=== PATIENT | male | born 1935 | race Hispanic/Latino ===

== ENCOUNTER 2017-09-10 13:53 | Inpatient (IN) | payer OTHER ==
[~2017-09-10] VITALS: Ht 170.2 cm; Wt 78.9 kg
[~2017-09-10 13:53] MED LIST: AMOX-CLAV 875-1 EACH PO; ASPIRIN EC81 M1 PO; AZITHROMYCIN600 MG PO; CEFUROXIME500 MG PO; CLOPIDOGREL75 M1 PO; ESCITALOPRAM OX10 MG PO; HYDROCHLOROTH12.5 M3 PO; JANUMET 50-1,01 EACH PO; METOPROLOL SUCC25 M1 PO; PANTOPRAZOLE SO40 M1 PO; PRAVASTATIN SOD10 M2 PO; PREZCOBIX 8001 EACH PO; Rolling walker; SULFAMETHOXAZO1 EAC1 PO; TAMSULOSIN HCL0.4 M1 PO; TIVICAY50 M1 PO; TOUJEO SOL300 UNIT/1 SC; VOLTAREN100 GM TOP; ZOLPIDEM TARTRA10 M1 PO
[2017-09-10 14:39] LABS: ABSOLUTE BASOPHIL COUNT 0 /CUMM (0.0-0.2); ABSOLUTE EOSINOPHIL COUNT 0 /CUMM (0.0-0.7); ABSOLUTE GRANULOCYTE CT 7.6 /CUMM (1.4-6.5); ABSOLUTE LYMPH COUNT 1.2 /CUMM (1.2-3.4); ABSOLUTE MONOCYTE COUNT 1.2 /CUMM (0.10-0.60); BASOPHIL % 0.1 % (0.0-2.0); EOSINOPHIL % 0.3 % (0-5); GRANULOCYTE % 75.5 % (42.2-75.2); HEMATOCRIT 37.6 % (42-52); MEAN CORPUSCULAR HGB 30.3 PG (27.0-31.0); MEAN CORPUSCULAR HGB CONC 33.8 G/DL (33.0-37.0); MEAN CORPUSCULAR VOLUME 89.6 FL (80.0-94.0); MEAN PLATELET VOLUME 8.9 FL (7.4-10.4); PLATELET COUNT 251 /CUMM (130-400); RBC DISTRIBUTION WIDTH 12.9 % (11.5-14.5); WHITE BLOOD CELL COUNT 10.1 /CUMM (4.8-10.8)
--- NOTE | 2017-09-10 15:02 | RADIOLOGY REPORT ---
EXAMINATION: XR PORTABLE CHEST CLINICAL INFORMATION: Altered mental status COMPARISON: 09/02/2017 TECHNIQUE: AP portable upright view of the chest FINDINGS: Lordotic projection. Lungs are clear. No consolidation, pneumothorax, or pleural effusion. Cardiac and mediastinal contours are normal. Pulmonary vasculature is unremarkable. Osseous structures are unremarkable. IMPRESSION: No acute cardiopulmonary findings
--- NOTE | 2017-09-10 16:22 | ED AMS/SEIZURE/WEAK/DIZZY ---
See Addendum History of Present Illness General Chief Complaint: General Adult Stated Complaint: ALTERED MENTAL STATUS Source: patient, family Exam Limitations: no limitations Vital Signs & Intake/Output Vital Signs & Intake/Output Vital Signs Date Time Temp Pulse Resp B/P B/P Pulse O2 O2 Flow FiO2 Mean Ox Delivery Rate 09/11 1100 102.1 85 18 140/80 99 Room Air 09/11 0534 98.2 93 18 127/76 95 Room Air 09/11 0254 61 127/61 09/11 0143 98.1 60 20 117/60 99 Room Air 09/10 2351 98.4 53 16 107/53 97 Room Air 09/10 2256 60 106/59 09/10 2255 96.0 63 20 106/59 97 Room Air 09/10 2126 51 86/52 09/10 2042 63 18 83/51 99 Room Air 09/10 1901 98.3 72 18 82/46 96 Room Air 09/10 1356 100.3 76 18 163/78 96 Room Air ED Intake and Output 09/11 0000 09/10 1200 Intake Total Output Total Balance Patient 167 lb Weight Weight Reported by Patient Measurement Method Allergies Coded Allergies: No Known Allergies (08/26/17) Reconcile Medications Aspirin (Ecotrin*) 81 MG TABLET.DR 1 TAB PO DAILY HEART HEALTH (Reported) Azithromycin 600 MG TABLET 2 TAB PO QSUN ANTIBIOTIC (Reported) Clopidogrel Bisulfate (Clopidogrel) 75 MG TABLET 1 TAB PO DAILY HEART HEALTH (Reported) Darunavir/Cobicistat (Prezcobix 800 MG-150 MG Tablet) 800 MG-150 MG TABLET 1 TAB PO DAILY HIV (Reported) Diclofenac Sodium (Voltaren) 1 % GEL..GRAM. 1 GM TOP 4 TIMES/DAY PRN PAIN ( Reported) apply to affected area(s) Dolutegravir Sodium (Tivicay) 50 MG TABLET 1 TAB PO DAILY HIV (Reported) Escitalopram Oxalate 10 MG TABLET 1 TAB PO DAILY DEPRESSION (Reported) Hydrochlorothiazide 12.5 MG CAPSULE 1 CAP PO DAILY HEART HEALTH (Reported) Insulin Glargine,Hum.rec.anlog (Alexia Mireles) 300 UNIT/ML (1.5 ML) INSULN.PEN 40 INJ SC DAILY DM (Reported) Metoprolol Succinate 25 MG TAB 1 TAB PO DAILY HEART HEALTH (Reported) Pantoprazole Sodium 40 MG TABLET.DR 1 TAB PO DAILY HEART HEALTH (Reported) Pravastatin Sodium 10 MG TABLET 1 TAB PO DAILY HEART HEALTH (Reported) Sitagliptin Phos/Metformin HCl (Janumet 50-1,000 MG Tablet) 50 MG-1,000 MG TABLET 1 TAB PO BID DM (Reported) Sulfamethoxazole/Trimethoprim (Sulfamethoxazole-Tmp Ds Tablet) 800 MG-160 MG TABLET 1 TAB PO Thursday ABT (Reported) Tamsulosin HCl 0.4 MG CAP.ER.24H 1 CAP PO DAILY ENLARGED PROSTATE (Reported) Zolpidem Tartrate 10 MG TABLET 1 TAB PO QPMP SLEEP AIDE (Reported) Triage Note: 82 YO MALE TO TRIAGE WITH DAUGHTER. PER DAUGHTER, PT HAS BEEN CONFUSED AND NOT MAKING SENSE TODAY (ONSET THIS AM) STATES HE WAS RECETNLY SEEN HERE FOR AN INFECTION AND D/C HOME. STATES HE IS NOW HAVING TROUBLE AMBULATING. PT ALERT TO SELF ONLY AT THIS TIME. PT DENIES PAIN. TEMP 100.3. BS 116. EQUAL HAND GRASPS AND SMILE. Triage Nurses Notes Reviewed? yes Onset: Abrupt Duration: day(s):, intermittent Timing: recent history Injury Environment: home No Modifying Factors: none HPI: 82-year-old male comes into the emergency room for altered mental status. Patient was recently admitted at [facility] overnight and diagnosed with UTI. He then was discharged and then sent to [facility] by ambulance. He was septic and had a have a cystoscopy done by Dr. Victoria. She was found to have an enlarged prostate and a urine infection. He was on IV antibiotics. He also had pneumonia. He was discharged. He came back a second time here at [facility]. He was then discharged again after some IV fluids. She reports she's been increasingly weak today and unable to ambulate. No vomiting. More confused compared to his normal baseline. (Michele Levy) Past History Travel History Traveled to [place] past 21 day No Medical History Any Pertinent Medical History? 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 No (Michele Levy) Review of Systems Review of Systems Constitutional: Reports: see HPI. EENTM: Reports: see HPI. Respiratory: Reports: no symptoms. Cardiovascular: Reports: no symptoms. GI: Reports: see HPI. Genitourinary: Reports: no symptoms. Musculoskeletal: Reports: no symptoms. Skin: Reports: no symptoms. Neurological/Psychological: Reports: no symptoms. Hematologic/Endocrine: Reports: no symptoms. Immunologic/Allergic: Reports: no symptoms. All Other Systems: Reviewed and Negative (Michele Levy) Physical Exam Physical Exam General Appearance: well developed/nourished, no apparent distress, alert, awake Head: atraumatic Eyes: Bilateral: normal appearance. Ears, Nose, Throat: normal ENT inspection, hearing grossly normal Neck: normal inspection Respiratory: no respiratory distress Cardiovascular: regular rate/rhythm Back: normal inspection Extremities: normal range of motion Neurologic/Psych: awake, alert, oriented x 3, normal gait Skin: intact, normal color Core Measures ACS in differential dx? Yes CVA/TIA Diagnosis No Sepsis Present: No Sepsis Focused Exam Completed? No (Michele Levy) Progress Differential Diagnosis: arrythmia, alcohol intoxication, anemia, CVA/stroke, dehydration, drug intoxication, encephalitis, electrolyte imbalance, intracranial Hem., labrynthitis, meningitis, multiple sclerosis, postural hypotension, presyncope, post-traumatic vertigo, subarachnoid Hem., UTI/pyelo, vertebrobasilar insuff Plan of Care: Orders Procedure Date/time Status Regular Diet 09/11 B Active PT Evaluate & Treat 09/11 0754 Active CASE MANAGEMENT CONSULT 09/11 0754 Active OXYGEN SETUP (GEN) 09/10 2159 Active Saline Lock 09/[address] in observation 09/10 2159 Active Activity/Ambulation 09/10 2159 Active Code Status 09/10 2159 Active Add-on Test (ER Only) 09/[address] in observation 09/10 1906 Active Patient Data 09/10 190 Active Vital Signs 09/10 1906 Active Code Status 09/10 1906 Complete RAPID VIRAL INFLUENZA A 09/10 1525 Complete Intake & Output 09/10 1439 Active BLOOD CULTURE 09/10 140 Active URINALYSIS 09/10 140 Complete LACTIC ACID 09/10 140 Complete COMPREHENSIVE METABOLIC PANEL 09/10 140 Complete CBC WITHOUT DIFFERENTIAL 09/10 140 Complete EKG 09/10 140 Active Laboratory Tests 09/10/17 1709: Lactic Acid Cancelled 09/10/17 1443: Urine Color YEL, Urine Clarity HAZY H, Urine pH 5.5, Ur Specific [place] >= 1.030, Urine Protein 100 H, Urine Ketones NEG, Urine Nitrite NEG, Urine Bilirubin NEG, Urine Urobilinogen 0.2, Ur Leukocyte Esterase TRACE H, Ur Microscopic SEDIMENT EXAMINED, Urine RBC 50-75 H, Urine WBC 10-15 H, Ur Epithelial Cells FEW, Urine Crystals 3+ UR AC H, Urine Bacteria MOD H, Hyaline Casts RARE H, Urine Hemoglobin LARGE H, Urine Glucose NEG 09/10/17 1420: Anion Gap 13, Estimated GFR 58 L, BUN/Creatinine Ratio 15.0, Glucose 128 H, Lactic Acid 1.4, Calcium 9.4, Total Bilirubin 0.9, AST 17, ALT 25, Alkaline Phosphatase 95, Total Protein 7.3, Albumin 3.8, Globulin 3.5, Albumin/Globulin Ratio 1.1, CBC w Diff NO MAN DIFF REQ, RBC 4.20 L, MCV 89.6, MCH 30.3, RDW 12.9 , MPV 8.9, Gran % 75.5 H, Lymphocytes % 11.9 L, Monocytes % 12.2 H, Eosinophils % 0.3, Basophils % 0.1, Absolute Granulocytes 7.6 H, Absolute Lymphocytes 1.2, Absolute Monocytes 1.2 H, Absolute Eosinophils 0, Absolute Basophils 0, PUBS MCHC 33.8 Microbiology 09/10 2303 NASOPHARYN: Influenza Virus A & B Rapid Smear - COMP 09/10 143 BLOOD: Blood Culture - RES 09/10 142 BLOOD: Blood Culture - RES Diagnostic Imaging: Viewed by Me: Radiology Read. Discussed w/RAD: Radiology Read. Radiology Impression: PATIENT: TRAVIS PRYOR PRESENT AGE: 82 PATIENT ACCOUNT NO: [id number] : 35 LOCATION: [facility] ORDERING PHYSICIAN: Michele CALIX SERVICE DATE: 09/10/17-5980 EXAM TYPE : RAD - XRY-PORTABLE CHEST XRAY EXAMINATION: XR PORTABLE CHEST CLINICAL INFORMATION: Altered mental status COMPARISON: 09/02/2017 TECHNIQUE: AP portable upright view of the chest FINDINGS: Lordotic projection. Lungs are clear. No consolidation, pneumothorax, or pleural effusion. Cardiac and mediastinal contours are normal. Pulmonary vasculature is unremarkable. Osseous structures are unremarkable. IMPRESSION: No acute cardiopulmonary findings DICTATED BY: Zeus Hemphill MD DATE/TIME DICTATED:09/10/171456 OUTSIDE BARREL LATHE OPERATOR:RAJAN DATE/TIME TRANSCRIBED:09/10/171456 CONFIDENTIAL, DO NOT COPY WITHOUT APPROPRIATE AUTHORIZATION. <Electronically signed in Other Vendor System> SIGNED BY: Zeus Hemphill MD 09/10/17 1502 Initial ED EKG: normal sinus rhythm, rate (98), nonspecific ST T wave chg (Ciro CALIX,Michele) Hand-Off Endorsed To: Jensen Lopes MD Endorsed Time: 07 Pending: consult (case mgmt. PT) ([facility] BRAVO,Lior) Comments: 09/11/17 07:00 pt signed out to me by dr capps. 09/11/2017 9:59:34 AM per lab, pt has oligoclonal bands from csf collected on aug 27. 09/11/2017 11:21:02 AM I have reviewed the report of the oligoclonal bands. The significance of this is somewhat unclear at this point. I will discuss this finding with neurology given the patient's presentation consisting of confusion and weakness. 09/11/2017 11:40:27 AM patient's case discussed with Dr. Peterson. She feels that there is no emergency intervention needed based on the nonspecific nature of the oligoclonal bands. In fact the report does list a number of different possible underlying etiologies. Given the fact that the patient is now spiking a fever I feel he will need to be admitted. 09/11/2017 12:21:23 PM I have discussed this patient's case with Dr. Morrison including latest set of vital signs, fever, urinalysis and the call I received from the laboratory. I have also notified him of my discussion with Dr. Peterson. (Marianne BRAVO,Jensen Archuleta) Departure Departure Disposition: STILL A PATIENT Condition: Stable Referrals: Rupert MD,Edgard (PCP/Family) Departure Forms: Customer Survey General Discharge Information (Michele Levy) Departure Clinical Impression Primary Impression: Altered mental status Secondary Impressions: Dehydration, Hypotension, Multifactorial gait disorder, Oligoclonal bands in cerebrospinal fluid, Symptomatic urinary tract infection Admission Note Spoke With: Angela Morrison MD Documentation of Exam: Documentation of any treatments & extenuating circumstances including Concerns Regarding Discharge (functional status, medication knowledge or non-compliance, living conditions, etc.) that warrant an admission rather than observation: Patient is just spiked a fever of 102 here in the emergency department. He has an infected appearing urine and this may in fact be the underlying cause for his fever and clinical presentation. Given his altered mental status and profound generalized weakness I do not feel he is a good candidate for outpatient management and would very likely return in worse clinical condition due to an inability to comply with outpatient treatment. Given this I feel he now requires hospitalization for investigation of the underlying cause and for treatment of his fever along with close clinical monitoring of mental status and vital signs. Given the oligoclonal bands seen on CSF analysis I feel neurology consultation is warranted. Given this patient's history of HIV disease infectious disease consultation should be considered as well. Patient's antiretroviral medications should be reviewed and optimized. Culture results should be followed and treated accordingly. Physical therapy consultation should be considered given the patient's difficulty in ambulating secondary to generalized weakness. I feel he'll require a multiple day hospitalization. (Jensen Lopes MD) Critical Care Note Critical Care Note Critical Care Time: 30-74 min (Marianne BRAVO,Jensen Archuleta) ED Attending Observation Initial Observation Note: I have seen and personally examined TRAVIS PRYOR on 09/10/17 at 1626. I agree with the current emergency department documentation. The disposition (admission or discharge) is uncertain at this time, he needs a period of observation for the following reason(s): The ED Nurse caring for this patient has been personally informed as to what the patient is being observed for. (Michele Levy) Observation Re-Evaluation: I have reevaluated TRAVIS PRYOR on 09/10/17 at 2300. The physical findings that support the continued need to observe this patient include continued hypotension despite 2L NS. Observation status room to go to floor for further medical care. Radha/W hospitalist. Requests wait for 3rd liter response, if BP normalizes patient to remain in ED for PT eval, case management assistance with disposition. ([facility] BRAVO,Lior)
--- NOTE | 2017-09-10 20:10 | CT SCAN REPORT ---
EXAMINATION: CT HEAD WITHOUT CONTRAST CLINICAL INFORMATION: Altered metal status. COMPARISON: Head CT 09/02/2017. TECHNIQUE: Contiguous axial imaging was performed from the skull base to vertex without intravenous administration of contrast. DLP: 615 mGy-cm. FINDINGS: There is no intracranial hemorrhage, large infarction, or mass lesion. There is moderate scattered hypoattenuation in the bilateral cerebral white matter, which is nonspecific but likely reflects small vessel disease. There are chronic appearing lacunar infarcts within the bilateral basal ganglia. There is mild diffuse brain parenchymal volume loss with prominence of ventricles and sulci. The ventricular size is unchanged compared to prior. The paranasal sinuses are clear. The mastoids and middle ear cavities are clear. There are atherosclerotic calcification of the carotid siphons and vertebral arteries. There is air within the right cavernous sinus which is presumably related to venipuncture. IMPRESSION: 1. No acute intracranial abnormality identified. 2. Mild brain parenchymal volume loss and background of moderate small vessel ischemic changes.
--- NOTE | 2017-09-11 14:02 | Admission Certification ---
Admission Certification Certification Statement - As attending physician, I certify that at the time of - admission, based on clinical presentation, severity of - symptoms, need for further diagnostic testing and - therapeutic interventions, and risk of adverse outcomes - without in-hospital treatment, in my clinical assessment, - this patient requires an acute hospital stay for a minimum - of two nights or longer. I have also considered psychsocial - factors such as support system, advanced age, financial - issues, cognitive issues, and failed out-patient treatments, - past re-admission history, safety of patient, and lack of - compliance as applicable. 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
--- NOTE | 2017-09-11 14:33 | History & Physical ---
Del Troncoso MD 09/11/17 1432: General Information and HPI MD Statement: I have seen and personally examined TRAVIS PRYOR and documented this H&P. The patient is a 82 year old M who presented with a patient stated chief complaint of weakness and confusion. Source of Information: patient, family, old records Exam Limitations: confusion History of Present Illness: 82 year old man with past medical history significant for CAD s/p LA and stent, HTN, HLD, DM and BPH, HIV positive noncompliant with antiretroviral therapy and CD4 count of 22 on 08/27/17 (managed by Jeff Mishra at [facility] in [place]), who was recently admitted with fever and altered mental status presents was admitted for fever and sepsis of urological origin after being observed in the ED for weakness and confusion. On the recent admission, there was no leukocytosis, CT and MRI of the head were negative. An LP was performed and negative for infectious causes. The hospitalization was complicated by a traumatic Prabhakar placement requiring urology , prabhakar placement, cystoscopy and irrigation for hematuria. The patient was treated for urinary tract infection and possible pneumonia because of an infiltrate on chest CT. He was scheduled with Dr. Victoria for a TURP on Thursday. His daughter noticed that he was hallucinating and seemed shaky and progressively more weak over the last two days. He is normally very independent in terms of ambulation and his iADLs but has become progressively weaker and had difficulty ambulating with home physical therapy so she brought him in to the ED. His only complaints at the time of evaluation were some nausea, abdominal distention and a couple episodes of nonbloody, largely watery emesis in the day prior to admission. His chest x-ray in the ED was unremarkable and urinalysis had pyuria. He spiked a fever to a max temperature of 102.1 and was started on ceftriaxone. At the time of evaluation he has no specific complaints and is mentating well, responding and interacting appropriately. Of note on his previous admission, the CSF studies were negative for lyme, HSV was pending and lumbar puncture was positive for oligoclonal bands of unclear significance. Also his abdominal CT showed retroperitoneal lymphadenopathy. 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 Exam & Diagnostic Data Last 24 Hrs of Vital Signs/I&O Vital Signs Date Time Temp Pulse Resp B/P B/P Pulse O2 O2 Flow FiO2 Mean Ox Delivery Rate 09/11 2325 102.3 86 20 160/70 96 09/11 232 98.5 09/11 2223 102.3 09/11 2215 102.3 09/11 1739 98.5 60 20 150/60 97 Room Air 09/11 1335 99.9 76 18 112/65 95 Room Air 09/11 1200 100.7 09/11 1100 102.1 85 18 140/80 99 Room Air 09/11 0534 98.2 93 18 127/76 95 Room Air Intake & Output 09/12 0800 09/12 0000 09/11 1600 Intake Total 540 Output Total 950 Balance -410 Intake, IV 300 Intake, Oral 240 Output, Urine 950 Patient 79.379 kg Weight Weight Bed scale Measurement Method Physical Exam General Appearance Alert, Oriented X3, Cooperative, No Acute Distress Skin Temp/Moisture Exam: Warm/Dry Sepsis Skin Exam (color): Normal for Ethnicity Cardiovascular Regular Rate, Normal S1, Normal S2, No Murmurs Lungs Clear to Auscultation, Normal Air Movement Abdomen Normal Bowel Sounds, Soft, No Tenderness, No Masses, +Prabhakar Extremities No Clubbing, No Cyanosis, No Edema, Normal Pulses Sepsis Peripheral Pulse Location: Dorsalis Pedis Sepsis Peripheral Pulse Exam: Normal Sepsis Cap Refill Exam: <2 Sec Last 24 Hrs of Labs/Lam: Microbiology 09/11 2355 BLOOD: Blood Culture - RECD 09/11 2335 BLOOD: Blood Culture - RECD 09/11 1445 URINE ROUT: Urine Culture - COLB Diagnostic Data CXR Results Lordotic projection. Lungs are clear. No consolidation, pneumothorax, or pleural effusion. Cardiac and mediastinal contours are normal. Pulmonary vasculature is unremarkable. Osseous structures are unremarkable. Other Results 1. No acute intracranial abnormality identified. 2. Mild brain parenchymal volume loss and background of moderate small vessel ischemic changes. Assessment/Plan Assessment: 82 year old man with past medical history significant for CAD s/p LA and stent, HTN, HLD, DM and BPH, HIV positive with recent CD4 count of 22 and detectable viral load admitted for fever, catheter associated urinary tract infection, weakness, and confusion. Catheter associated urinary tract infection: Follow up urine and repeat blood cultures Febrile overnight tmax 102.3 Continue ceftriaxone 1gram IV daily Call urology regarding scheduled TURP Leave Prabhakar catheter in place CAD: Continue metoprolol HIV: Continue PCP prophylaxis with Bactrim Continue antiretroviral therapy Continue MAC prophylaxis with azithromycin Consider lymphoma evaluation for retroperitoneal lymphadenopathy BPH: Continue tamsulosin HLD: Continue statin therapy DM: Accuchecks TIDAC Novolog insulin sliding scale Monoclonal CSF bands Consider neurology consult Regular diet DVT ppx-heparin 5000units subcutaneous Q8H Full code As Ranked By This Provider Problem List: 1. Fever 2. Oligoclonal bands in cerebrospinal fluid 3. Symptomatic urinary tract infection 4. Hypotension 5. Weakness 6. Gait instability 7. UTI (urinary tract infection) 8. Confusion Core Measures/Misc (05/31) Acute Coronary Syndrome ACS Diagnosis: No Congestive Heart Failure Congestive Heart Failure Diagnosis No Cerebrovascular Accident CVA/TIA Diagnosis: No VTE (View Protocol) VTE Risk Factors Age>40 No Mechanical VTE Prophylaxis d/t N/A MechProphylax Ordered No VTE Pharm Prophylaxis d/t NA PharmProphylax ordered Sepsis (View protocol) Sepsis Present: Yes Soledad Lovelace MD 09/11/17 1515: Attending MD Review Statement Attending Statement Attending MD Statement: examined this patient, discuss w/resident/PA/INFORMATION ASSURANCE OFFICER, agreed w/resident/PA/INFORMATION ASSURANCE OFFICER, reviewed EMR data (avail), reviewed images Attending Assessment/Plan: 82-year-old male medical medical problems was here from August 26 to August 31 and discharged on August 31. He has a history of HIV and recently started on antiretrovirals with his most recent CD4 count being 22. On his last admission he was here with fever presumed sepsis of urological origin and obstructive uropathy. Because of confusion he also had a tap (LP) on 12/14 at that point which revealed 2 white cells and all infectious/encephalitic workup was negative. He was treated initially with IV antibiotics for presumed sepsis of urological and because of a traumatic Prabhakar catheterization he had a Prabhakar placed in the OR by Dr. Victoria on August 27. He returned to the ER on 09/02 with weakness and difficulty ambulation was discharged and now came back to the ER initially last night and was placed in ED observation for the thought of physical therapy and observation however he spiked to 102 and is now admitted. Right now are only presumed source is the urine and the question of a catheter associated UTI. We will treat him with IV ceftriaxone for now and follow up on all cultures. We'll call a formal ID consult in a.m. Continue his antiretrovirals, his antidiabetic meds with the exception of his oral hypoglycemics. We'll give him one bag of IV fluids and hold his hydrochlorothiazide for now. Will give him DVT prophylaxis and follow closely. Off note family history is non contributory Lisset Pickering 09/11/170: General Information and HPI Allergies/Medications Home Med list Ammonium Lactate 12 % LOTION 1 DILLAN TOP BID SKIN (Reported) Aspirin (Ecotrin*) 81 MG TABLET.DR 1 TAB PO DAILY HEART HEALTH (Reported) Azithromycin 600 MG TABLET 2 TAB PO QSUN ANTIBIOTIC (Reported) Clopidogrel Bisulfate (Clopidogrel) 75 MG TABLET 1 TAB PO DAILY HEART HEALTH (Reported) Darunavir/Cobicistat (Prezcobix 800 MG-150 MG Tablet) 800 MG-150 MG TABLET 1 TAB PO DAILY HIV (Reported) Desonide (Desowen) 0.05 % CREAM..G. 1 DILLAN TOP BID SKIN (Reported) apply to affected area(s) Diclofenac Sodium (Voltaren) 1 % GEL..GRAM. 1 DILLAN TOP BID PRN PAIN (Reported) apply to affected area(s) Dolutegravir Sodium (Tivicay) 50 MG TABLET 1 TAB PO DAILY HIV (Reported) Escitalopram Oxalate 10 MG TABLET 1 TAB PO DAILY DEPRESSION (Reported) Hydrochlorothiazide 12.5 MG CAPSULE 1 CAP PO DAILY HEART HEALTH (Reported) Insulin Glargine,Hum.rec.anlog (Toujeo Solostar) 300 UNIT/ML (1.5 ML) INSULN.PEN 40 UNIT SC DAILY DM (Reported) Metoprolol Succinate 25 MG TAB 1 TAB PO DAILY HEART HEALTH (Reported) Nut.tx.gluc.intoler,Lac-Fr,Soy (Glucerna) (Unknown Strength) LIQUID (Unknown Dose) PO BID NUTRITIONAL SUPPLEMENT (Reported) Pantoprazole Sodium 40 MG TABLET.DR 1 TAB PO DAILY HEART HEALTH (Reported) Pentoxifylline 400 MG TABLET.ER 1 TAB PO DAILY UNKNOWN (Reported) Pravastatin Sodium 10 MG TABLET 1 TAB PO DAILY HEART HEALTH (Reported) Sitagliptin Phos/Metformin HCl (Janumet 50-1,000 MG Tablet) 50 MG-1,000 MG TABLET 1 TAB PO BID DM (Reported) Sulfamethoxazole/Trimethoprim (Sulfamethoxazole-Tmp Ds Tablet) 800 MG-160 MG TABLET 1 TAB PO Thursday ABT (Reported) Tamsulosin HCl 0.4 MG CAP.ER.24H 1 CAP PO DAILY ENLARGED PROSTATE (Reported) Valacyclovir HCl (Valacyclovir) 1,000 MG TABLET 1 TAB PO DAILY ANTIVIRAL ( Reported) Zolpidem Tartrate 10 MG TABLET 1 TAB PO QPMP SLEEP AIDE (Reported) Resident Review Statement Resident Statement: examined this patient, discussed with senior insight manager international, agreed with senior insight manager international, discussed with family, reviewed EMR data (avail), reviewed images Other Findings: is an 82 year PMHx. of CAD s/p LA and stent, HTN, HLD, DM and BPH, HIV on antiretroviral therapy with a recent CD4 count of 22 (managed by Jeff Mishra at [facility] in [place])recently discharged from after been treated for sepsis of urological origin presented to ED with a c/o AMS. Patient's daughter was at bedside during the encounter, she noticed that her father is hallucinating yesterday, he also has decrease oral intake, at ED he spiked fever up to 102 and was hypotensive. daughter report history of diarrhea managed with Imodium, currently no loose bowel movement, no abdominal pain. He denies any chest pain, SOB, dizziness, chills, cough. Offnote: Patient's on PLAVIX AND ASA wich is currently on hold for lazer TURP on next thursday. Will admitt the patient for general medicine floor, will resume his medication including antiretroviral, will hold Imodium, if he developed diarrhea please send C.diff. UA is hazy with trace esterase he was given Ceftriaxone at ED, will continue cefriaxone for possible UTI, his LP from last admission showed monoclonal band, as this finding is non-specific will evaluate him at am, will consider neurology consult, will start him on novolog sliding scale, accucheck, will send urine culture. ID consult. I'll but him on SC heparin for DVT ppx, as his creatinine in upper normal 1.2 Full code
[2017-09-11] MEDS ORDERED: PENTOXIFYLLINE400 M1 PO (16:22)
[2017-09-11] MEDS ORDERED: AMMONIUM LACTA226 GM TOP (16:24)
[2017-09-11] MEDS ORDERED: VALACYCLOVIR1000 MG PO (16:28)
[2017-09-11] MEDS ORDERED: DESOWEN60 GM TOP (16:38)
[2017-09-11] MEDS ORDERED: GLUCERNA237 ML PO (16:39)
--- NOTE | 2017-09-11 17:02 | Cons- Infect Disease ---
General Information and HPI Consulting Request Date of Consult: 09/11/17 Requested By: Soledad Lovelace MD Reason for Consult: Fever Source of Information: patient, family, old records History of Present Illness: This is an 82-year-old man, HIV positive for 15 years, noncompliant with antiretroviral therapy until recently, with a recent CD4 count of 22, with a history of coronary artery disease, status post NC and stent, hypertension, hyperlipidemia, diabetes and BPH, hospitalized 2 weeks prior to admission with confusion, fatigue and shaking chills, found to be febrile with a normal white blood cell count, negative CT of the head, negative MRI of the head and negative LP, with a traumatic Eduardo catheterization resulting in hematuria, for which he underwent a cystoscopy, with clot evacuation, and with a CT of the abdomen and pelvis revealing prominent prostatomegaly and retrotoperineal lymphadenopathy, treated for a possible urinary tract infection versus pneumonia with a 6 day course of antibiotics, with all of his cultures negative, discharged with a Eduardo catheter, with plans for a laser TURP next week, admitted on September 10 after he was brought to the emergency room with confusion, weakness and decreased oral intake. On admission he was febrile to 100.3. Laboratory data revealed a white blood cell count of 10,000, BUN/creatinine 18 and 1.2, with normal liver enzymes. Urinalysis 50-75 RBCs/10-15 WBCs. Chest x-ray was negative. CT of the head was negative for any acute process. He was begun on Ceftriaxone, but, unfortunately, no urine culture was sent. He spiked to 102.1 this morning. At present he offers no complaints and specifically denies any respiratory or GI symptoms. Allergies/Medications Allergies: Coded Allergies: No Known Allergies (08/26/17) Home Med List: Ammonium Lactate 12 % LOTION 1 DILLAN TOP BID SKIN (Reported) Aspirin (Ecotrin*) 81 MG TABLET.DR 1 TAB PO DAILY HEART HEALTH (Reported) Azithromycin 600 MG TABLET 2 TAB PO QSUN ANTIBIOTIC (Reported) Clopidogrel Bisulfate (Clopidogrel) 75 MG TABLET 1 TAB PO DAILY HEART HEALTH (Reported) Darunavir/Cobicistat (Prezcobix 800 MG-150 MG Tablet) 800 MG-150 MG TABLET 1 TAB PO DAILY HIV (Reported) Diclofenac Sodium (Voltaren) 1 % GEL..GRAM. 1 DILLAN TOP BID PRN PAIN (Reported) apply to affected area(s) Dolutegravir Sodium (Tivicay) 50 MG TABLET 1 TAB PO DAILY HIV (Reported) Escitalopram Oxalate 10 MG TABLET 1 TAB PO DAILY DEPRESSION (Reported) Hydrochlorothiazide 12.5 MG CAPSULE 1 CAP PO DAILY HEART HEALTH (Reported) Insulin Glargine,Hum.rec.anlog (Alexia Riveraar) 300 UNIT/ML (1.5 ML) INSULN.PEN 40 UNIT SC DAILY DM (Reported) Metoprolol Succinate 25 MG TAB 1 TAB PO DAILY HEART HEALTH (Reported) Pantoprazole Sodium 40 MG TABLET.DR 1 TAB PO DAILY HEART HEALTH (Reported) Pentoxifylline 400 MG TABLET.ER 1 TAB PO DAILY UNKNOWN (Reported) Pravastatin Sodium 10 MG TABLET 1 TAB PO DAILY HEART HEALTH (Reported) Sitagliptin Phos/Metformin HCl (Janumet 50-1,000 MG Tablet) 50 MG-1,000 MG TABLET 1 TAB PO BID DM (Reported) Sulfamethoxazole/Trimethoprim (Sulfamethoxazole-Tmp Ds Tablet) 800 MG-160 MG TABLET 1 TAB PO Thursday ABT (Reported) Tamsulosin HCl 0.4 MG CAP.ER.24H 1 CAP PO DAILY ENLARGED PROSTATE (Reported) Valacyclovir HCl (Valacyclovir) 1,000 MG TABLET 1 TAB PO DAILY ANTIVIRAL ( Reported) Zolpidem Tartrate 10 MG TABLET 1 TAB PO QPMP SLEEP AIDE (Reported) Past History Travel History Traveled to [place] past 21 day No Medical History Neurological: NONE EENT: glaucoma Cardiovascular: CAD (s/p stent), hypertension, myocardial infarction Respiratory: NONE Gastrointestinal: GERD Hepatic: NONE Renal: benign prost hyperplasia Musculoskeletal: NONE Psychiatric: depression Endocrine: diabetes Blood Disorders: HIV Cancer(s): NONE REHAB LIAISON/Reproductive: HIV History of MRSA: No History of VRE: No History of CDIFF: No Surgical History Surgical History: non-contributory Psychosocial History Services at Home: Home Health Aide Smoking Status: Never Smoked Review of Systems Review of Systems All Other Systems: Reviewed and Negative Exam & Diagnostic Data Last 24 Hrs of Vital Signs/I&O Vital Signs Date Time Temp Pulse Resp B/P B/P Pulse O2 O2 Flow FiO2 Mean Ox Delivery Rate 09/11 1335 99.9 76 18 112/65 95 Room Air 09/11 1200 100.7 09/11 1100 102.1 85 18 140/80 99 Room Air 09/11 0534 98.2 93 18 127/76 95 Room Air 09/11 0254 61 127/61 09/11 0143 98.1 60 20 117/60 99 Room Air 09/10 2351 98.4 53 16 107/53 97 Room Air 09/10 2256 60 106/59 09/10 2255 96.0 63 20 106/59 97 Room Air 09/10 2126 51 86/52 09/10 2042 63 18 83/51 99 Room Air 09/10 1901 98.3 72 18 82/46 96 Room Air Intake & Output 09/11 1600 09/11 0800 09/11 0000 Intake Total Output Total 1400 Balance -1400 Number 1 Bowel Movements Output, Urine 1400 Patient 167 lb Weight Physical Exam Other Physical Findings: MAXIMUM TEMPERATURE 102.1. He is awake and alert in no acute distress. Skin reveals no rash. HEENT poor dentition. Neck is supple with no adenopathy. Lungs are clear. Heart regular rhythm with no murmur. Abdomen is soft, nontender with positive bowel sounds. Back no CVA tenderness. Extremities no cyanosis, clubbing or edema; no significant adenopathy. Neuro is without focality. Eduardo catheter is in place. Last 24 Hours of Lab Results: Laboratory Tests 09/10 09/10 1709 1443 Chemistry Lactic Acid Cancelled Urines Urine Color (YEL,AMB,STR) YEL Urine Clarity (CLEAR) HAZY H Urine pH (5.0 - 8.0) 5.5 Ur Specific [place] (1.001 - 1.035) >= 1.030 Urine Protein (NEG,<30 MG/DL) 100 H Urine Ketones (NEG) NEG Urine Nitrite (NEG) NEG Urine Bilirubin (NEG) NEG Urine Urobilinogen (0.1 - 1.0 EU/dl) 0.2 Ur Leukocyte Esterase (NEG) TRACE H Ur Microscopic SEDIMENT EXAMINED Urine RBC (0 - 5 /HPF) 50-75 H Urine WBC (0 - 2 /HPF) 10-15 H Ur Epithelial Cells (NONE,FEW) FEW Urine Crystals 3+ UR AC H Urine Bacteria (NEG/NONE) MOD H Hyaline Casts (0/LPF) RARE H Urine Hemoglobin (NEG) LARGE H Urine Glucose (N MG/DL) NEG 09/10 1420 Chemistry Sodium (137 - 145 mmol/L) 134 L Potassium (3.5 - 5.1 mmol/L) 4.8 Chloride (98 - 107 mmol/L) 98 Carbon Dioxide (22 - 30 mmol/L) 23 Anion Gap (5 - 16) 13 BUN (9 - 20 mg/dL) 18 Creatinine (0.7 - 1.2 mg/dL) 1.2 Estimated GFR (>60 ml/min) 58 L BUN/Creatinine Ratio (7 - 25 %) 15.0 Glucose (65 - 99 mg/dL) 128 H Lactic Acid (0.7 - 2.1 mmol/L) 1.4 Calcium (8.4 - 10.2 mg/dL) 9.4 Total Bilirubin (0.2 - 1.3 mg/dL) 0.9 AST (17 - 59 U/L) 17 ALT (21 - 72 U/L) 25 Alkaline Phosphatase (< 127 U/L) 95 Total Protein (6.3 - 8.2 g/dL) 7.3 Albumin (3.5 - 5.0 g/dL) 3.8 Globulin (1.9 - 4.2 gm/dL) 3.5 Albumin/Globulin Ratio (1.1 - 2.2 %) 1.1 Hematology CBC w Diff NO MAN DIFF REQ WBC (4.8 - 10.8 /CUMM) 10.1 RBC (4.70 - 6.10 /CUMM) 4.20 L Hgb (14.0 - 18.0 G/DL) 12.7 L Hct (42 - 52 %) 37.6 L MCV (80.0 - 94.0 FL) 89.6 MCH (27.0 - 31.0 PG) 30.3 RDW (11.5 - 14.5 %) 12.9 Plt Count (130 - 400 /CUMM) 251 MPV (7.4 - 10.4 FL) 8.9 Gran % (42.2 - 75.2 %) 75.5 H Lymphocytes % (20.5 - 51.1 %) 11.9 L Monocytes % (1.7 - 9.3 %) 12.2 H Eosinophils % (0 - 5 %) 0.3 Basophils % (0.0 - 2.0 %) 0.1 Absolute Granulocytes (1.4 - 6.5 /CUMM) 7.6 H Absolute Lymphocytes (1.2 - 3.4 /CUMM) 1.2 Absolute Monocytes (0.10 - 0.60 /CUMM) 1.2 H Absolute Eosinophils (0.0 - 0.7 /CUMM) 0 Absolute Basophils (0.0 - 0.2 /CUMM) 0 PUBS MCHC (33.0 - 37.0 G/DL) 33.8 Last 24 Hours of Lam Results: Blood cultures 2 September 10 negative Rapid flu swab September 10 negative Diagnostic Data Recent Imaging Findings: Chest x-ray September [address] of the head September 02 no acute process Assessment/Plan Assessment/Plan Impression: This is an 82-year-old man, HIV positive for 15 years, noncompliant with antiretroviral therapy until recently, with a recent CD4 count of 22, with a history of coronary artery disease, status post NC and stent, hypertension, hyperlipidemia, diabetes and BPH, hospitalized 2 weeks prior to admission with a fever and confusion, with no focus of infection identified, discharged after 6 days of antibiotics with a Eduardo catheter admitted on September 10 with confusion and weakness, with the development of a fever with no obvious focus of infection. 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 His CT of the abdomen did reveal retroperitoneal lymphadenopathy, which might raise concern for lymphoma, which could explain his fever. Of note his recent CSF did reveal 2 oligoclonal bands, which might suggest an underlying neurologic disorder and further evaluation for this would be warranted. With the indwelling Eduardo catheter a urinary tract infection is possible, and he can be covered for this pending cultures, though, unfortunately, no urine culture has been sent and any cultures sent at this point may well be affected by his recent antibiotics. Suggestion: 1. Neurology evaluation regarding his positive oligoclonal bands 2. Send a urine culture now 3. Consider pursuing the diagnosis of lymphoma based on his retroperitoneal lymphadenopathy 4. Continue Ceftriaxone pending above 5. Can resume his antiretroviral therapy and Bactrim prophylaxis Luz Marina Brown MD will be covering until September 15 Consult Acknowledgment - Thank you for your consult request.
[2017-09-11 17:39] VITALS: BP 150/60
[2017-09-11 23:25] VITALS: BP 160/70
--- NOTE | 2017-09-12 05:39 | PN- Housestaff ---
See Addendum Subjective Follow-up For: fever AIDS catheter associated UTI Subjective: patient was febrile overnight to 102.3 with nausea and vomiting during the same time that improved, patient denied any cough headache abdominal pain or other focal symptoms repeat blood cultures were performed and tylenol was administered Review of Systems Constitutional: Reports: see HPI. Objective Last 24 Hrs of Vital Signs/I&O Vital Signs Date Time Temp Pulse Resp B/P B/P Pulse O2 O2 Flow FiO2 Mean Ox Delivery Rate 09/12 0644 98.1 62 18 128/70 96 Room Air 09/11 2325 102.3 86 20 160/70 96 09/11 2322 98.5 09/11 2223 102.3 09/11 2215 102.3 09/11 1739 98.5 60 20 150/60 97 Room Air 09/11 1335 99.9 76 18 112/65 95 Room Air 09/11 1200 100.7 09/11 1100 102.1 85 18 140/80 99 Room Air Intake & Output 09/12 0800 09/12 0000 09/11 1600 Intake Total 240 540 Output Total 400 950 Balance -160 -410 Intake, IV 300 Intake, Oral 240 240 Output, Urine 400 950 Patient 79.379 kg Weight Weight Bed scale Measurement Method Physical Exam General Appearance: Alert, Oriented X3, Cooperative, No Acute Distress Neck: Supple, No JVD Cardiovascular: Regular Rate, Normal S1, Normal S2, No Murmurs Lungs: Clear to Auscultation, Normal Air Movement Abdomen: Normal Bowel Sounds, Soft, No Tenderness, No Masses, +prabhakar Extremities: No Clubbing, No Cyanosis, No Edema, Normal Pulses Current Medications: Current Medications Sig/Juma Start time Last Medication Dose Route Stop Time Status Admin Acetaminophen 650 MG Q6P PRN 09/11 2200 AC 09/11 PO 221 Acetaminophen 1,000 MG Q6P PRN 09/110 AC 09/11 IV 2223 Acetaminophen 975 MG ONCE ONE 09/11 1145 DC 09/11 PO 09/11 1146 1149 Acetaminophen 0 .STK-MED ONE 09/11 1142 DC PO Azithromycin 1,200 MG QSUN 09/13 0700 AC PO Ceftriaxone Sodium 1,000 MG DAILY 09/12 1000 AC IV Ceftriaxone Sodium 1,000 MG ONCE ONE 09/11 1145 DC 09/11 IV 09/11 1146 1204 Ceftriaxone Sodium 0 .STK-MED ONE 09/11 1142 DC .ROUTE Diclofenac Sodium 1 DILLAN BID PRN 09/11 1730 AC TOP Escitalopram Oxalate 10 MG DAILY 09/12 1000 AC PO Heparin Sodium 5,000 UNIT Q8 09/12 0600 AC 09/12 (Porcine) SC 0512 Heparin Sodium 5,000 UNIT Q8 09/11 1400 CAN (Porcine) SC Hydrocortisone 1 DILLAN DAILY 09/12 1000 AC TOP Hydromorphone HCl 0.5 MG Q8P PRN 09/11 2200 AC IV Insulin Aspart 0 TIDAC 09/12 0800 AC SC Metoprolol Succinate 25 MG DAILY 09/12 1000 AC PO Metoprolol Tartrate 25 MG DAILY 09/12 1000 CAN PO Pravastatin Sodium 10 MG DAILY 09/12 1000 AC PO Sodium Chloride 1,000 ML Q13H 09/11 1445 AC 09/11 IV 1859 Sodium Chloride 1,000 ML ONCE ONE 09/10 1915 DC 09/10 IV 09/11 0834 1930 Tamsulosin HCl 0.4 MG DAILY 09/12 1000 AC PO Trimethoprim/ 1 TAB 09/14 1000 AC Sulfamethoxazole PO Valacyclovir HCl 1,000 MG DAILY 09/12 1000 CAN PO Zolpidem Tartrate 10 MG AT BEDTIME PRN 09/11 2200 AC PO Last 24 Hrs of Lab/Lam Results Last 24 Hrs of Labs/Mics: Microbiology 09/11 2355 BLOOD: Blood Culture - RECD 09/11 2335 BLOOD: Blood Culture - RECD 09/11 1445 URINE ROUT: Urine Culture - COLB Assessment/Plan Assessment: 82 year old man with past medical history significant for CAD s/p [place] and stent, HTN, HLD, DM and BPH, HIV positive with recent CD4 count of 22 and detectable viral load admitted for fever, catheter associated urinary tract infection, weakness, and confusion. Catheter associated urinary tract infection: Follow up urine and repeat blood cultures Febrile overnight tmax 102.3 Continue ceftriaxone 1gram IV daily Call urology regarding scheduled TURP Leave Prabhakar catheter in place CAD: Continue metoprolol HIV: Continue PCP prophylaxis with Bactrim Continue antiretroviral therapy Continue MAC prophylaxis with azithromycin Consider lymphoma evaluation for retroperitoneal lymphadenopathy on prior CT BPH: Continue tamsulosin HLD: Continue statin therapy DM: Accuchecks TIDAC Novolog insulin sliding scale Monoclonal CSF bands Consider neurology consult Regular diet DVT ppx-heparin 5000units subcutaneous Q8H Full code Problem List: 1. Confusion 2. UTI (urinary tract infection) 3. Fever 4. Weakness 5. Gait instability 6. Oligoclonal bands in cerebrospinal fluid Pain Ratin Pain Location: n/a Pain Goal: Pain 4 or less Pain Plan: prn Tomorrow's Labs & Rationales: cbc, bep
[2017-09-12 06:44] VITALS: BP 128/70
[2017-09-12 09:08] LABS: ABSOLUTE BASOPHIL COUNT 0 /CUMM (0.0-0.2); ABSOLUTE EOSINOPHIL COUNT 0 /CUMM (0.0-0.7); ABSOLUTE GRANULOCYTE CT 4.9 /CUMM (1.4-6.5); ABSOLUTE MONOCYTE COUNT 1.1 /CUMM (0.10-0.60); BASOPHIL % 0.2 % (0.0-2.0); EOSINOPHIL % 0.4 % (0-5); GRANULOCYTE % 69.6 % (42.2-75.2); HEMATOCRIT 34.8 % (42-52); MEAN CORPUSCULAR HGB 30.3 PG (27.0-31.0); MEAN CORPUSCULAR HGB CONC 33.4 G/DL (33.0-37.0); MEAN CORPUSCULAR VOLUME 90.6 FL (80.0-94.0); MEAN PLATELET VOLUME 9.3 FL (7.4-10.4); PLATELET COUNT 175 /CUMM (130-400); RBC DISTRIBUTION WIDTH 12.9 % (11.5-14.5); RED BLOOD CELL CT 3.85 /CUMM (4.70-6.10)
--- NOTE | 2017-09-12 13:30 | PN- Infect Dx ---
Subjective Subjective: Chills. Febrile past 24 h. No productive cough. Review of Systems Comments: 12 points reviewed as noted, otherwise negative. Objective Last 24 Hrs of Vital Signs/I&O Vital Signs Date Time Temp Pulse Resp B/P B/P Pulse O2 O2 Flow FiO2 Mean Ox Delivery Rate 09/12 0942 84 154/84 09/12 0942 84 152/84 09/12 0644 98.1 62 18 128/70 96 Room Air 09/11 2325 102.3 86 20 160/70 96 09/11 2322 98.5 09/11 2223 102.3 09/11 2215 102.3 09/11 1739 98.5 60 20 150/60 97 Room Air 09/11 1335 99.9 76 18 112/65 95 Room Air Intake & Output 09/12 1600 09/12 0800 09/12 0000 Intake Total 240 540 Output Total 400 950 Balance -160 -410 Intake, IV 300 Intake, Oral 240 240 Output, Urine 400 950 Patient 175 lb Weight Weight Bed scale Measurement Method Physical Exam Other Physical Findings: He is awake and alert in no acute distress. Skin reveals no rash. HEENT poor dentition. Neck is supple with no adenopathy. Lungs are clear. Heart regular rhythm with no murmur. Abdomen is soft, nontender with positive bowel sounds. Back no CVA tenderness. Extremities no cyanosis, clubbing or edema; no significant adenopathy. Neuro is without focality. Eduardo catheter is in place. Results Last 24 Hours of Lab Results: Laboratory Tests 09/12 0811 Chemistry Sodium (137 - 145 mmol/L) 138 Potassium (3.5 - 5.1 mmol/L) 4.4 Chloride (98 - 107 mmol/L) 103 Carbon Dioxide (22 - 30 mmol/L) 23 Anion Gap (5 - 16) 11 BUN (9 - 20 mg/dL) 13 Creatinine (0.7 - 1.2 mg/dL) 1.0 Estimated GFR (>60 ml/min) > 60 BUN/Creatinine Ratio (7 - 25 %) 13.0 Hematology CBC w Diff NO MAN DIFF REQ WBC (4.8 - 10.8 /CUMM) 7.0 RBC (4.70 - 6.10 /CUMM) 3.85 L Hgb (14.0 - 18.0 G/DL) 11.6 L Hct (42 - 52 %) 34.8 L MCV (80.0 - 94.0 FL) 90.6 MCH (27.0 - 31.0 PG) 30.3 RDW (11.5 - 14.5 %) 12.9 Plt Count (130 - 400 /CUMM) 175 MPV (7.4 - 10.4 FL) 9.3 Gran % (42.2 - 75.2 %) 69.6 Lymphocytes % (20.5 - 51.1 %) 13.6 L Monocytes % (1.7 - 9.3 %) 16.2 H Eosinophils % (0 - 5 %) 0.4 Basophils % (0.0 - 2.0 %) 0.2 Absolute Granulocytes (1.4 - 6.5 /CUMM) 4.9 Absolute Lymphocytes (1.2 - 3.4 /CUMM) 1.0 L Absolute Monocytes (0.10 - 0.60 /CUMM) 1.1 H Absolute Eosinophils (0.0 - 0.7 /CUMM) 0 Absolute Basophils (0.0 - 0.2 /CUMM) 0 PUBS MCHC (33.0 - 37.0 G/DL) 33.4 Last 24 Hours of Lam Results: No UC available. SPEC #: [id number] KEENAN: 09/11/17 STATUS: RES RECD: 09/11/[address]: Del Troncoso MD SOURCE: BLOOD ENTR: 09/11/17 [facility] DR: [place] BRAVO,Soledad Haley SPDESC: 2ND/VENOUS Jeff Emery MD ORDERED: BLOOD CULTURE Procedure Result > BLOOD CULTURE REPORT Preliminary 09/12/171232 No growth after 1 day incubation. Specimen is examined continuously for 5 days before final report unless culture becomes positive. Recent Imaging Studies: SERVICE DATE: 09/10/17 EXAM TYPE: RAD - XRY-PORTABLE CHEST XRAY EXAMINATION: XR PORTABLE CHEST CLINICAL INFORMATION: Altered mental status COMPARISON: 09/02/2017 TECHNIQUE: AP portable upright view of the chest FINDINGS: Lordotic projection. Lungs are clear. No consolidation, pneumothorax, or pleural effusion. Cardiac and mediastinal contours are normal. Pulmonary vasculature is unremarkable. Osseous structures are unremarkable. IMPRESSION: No acute cardiopulmonary findings DICTATED BY: Zeus Hemphill MD DATE/TIME DICTATED:09/10/171456 REVENUE FIELD AGENT:RAJAN DATE/TIME TRANSCRIBED:09/10/171456 CONFIDENTIAL, DO NOT COPY WITHOUT APPROPRIATE AUTHORIZATION. Assessment/Plan Impression: 82-year-old man, HIV positive for 15 years, noncompliant with antiretroviral therapy until recently, with a recent CD4 count of 22, with a history of coronary artery disease, status post [place] and stent, hypertension, hyperlipidemia, diabetes and BPH, hospitalized 2 weeks prior to admission with a fever and confusion, with no focus of infection identified, discharged after 6 days of antibiotics with a Eduardo catheter admitted on September 10 with confusion and weakness, with the development of a fever with no obvious focus of infection. CT of the abdomen did reveal retroperitoneal lymphadenopathy, which might raise concern for lymphoma, which could explain his fever. With the indwelling Eduardo catheter a urinary tract infection is possible, and he can be covered for this pending cultures, though, unfortunately, no urine culture has been sent and any cultures sent at this point may well be affected by his recent antibiotics. PCP and MARCUS prophylaxis Suggestion: 1. Neurology evaluation regarding his positive oligoclonal bands in CSF 2. Repeat BC x 2 if spiking fever, also obtain UA/UC. 3. Consider pursuing the diagnosis of lymphoma based on his retroperitoneal lymphadenopathy 4. Continue Ceftriaxone pending above
[2017-09-12 15:21] VITALS: BP 122/62
[2017-09-12 22:29] VITALS: BP 128/60
[2017-09-13 06:29] VITALS: BP 132/80
[2017-09-13 09:14] LABS: ABSOLUTE BASOPHIL COUNT 0 /CUMM (0.0-0.2); ABSOLUTE EOSINOPHIL COUNT 0 /CUMM (0.0-0.7); ABSOLUTE GRANULOCYTE CT 3.1 /CUMM (1.4-6.5); BASOPHIL % 0.3 % (0.0-2.0); EOSINOPHIL % 0.1 % (0-5); GRANULOCYTE % 60.4 % (42.2-75.2); HEMATOCRIT 31.9 % (42-52); MEAN CORPUSCULAR HGB 30.3 PG (27.0-31.0); MEAN CORPUSCULAR HGB CONC 33.2 G/DL (33.0-37.0); MEAN CORPUSCULAR VOLUME 91.1 FL (80.0-94.0); MEAN PLATELET VOLUME 9.2 FL (7.4-10.4); PLATELET COUNT 149 /CUMM (130-400); WHITE BLOOD CELL COUNT 5.2 /CUMM (4.8-10.8)
--- NOTE | 2017-09-13 09:18 | PN- Housestaff ---
LadanLois 09/13/17 0918: Subjective Follow-up For: fever AIDS catheter associated UTI Complaints: ABDOMINAL PAIN, NAUSEA Subjective: Patient seen and examined, he is lying in the bed with mild distress, he reports that he has some nausea, with abdominal pain mainly in the epigastric region, he feels bloaded, he also reports some distention. Review of Systems Constitutional: Reports: fever (yesterday). EENTM: Reports: no symptoms. Cardiovascular: Reports: no symptoms. Respiratory: Reports: no symptoms. Gastrointestinal: Reports: see HPI, abdominal pain, nausea. Genitourinary: Reports: no symptoms. Musculoskeletal: Reports: no symptoms. Skin: Reports: no symptoms. Neurological/Psychological: Reports: see HPI. Objective Last 24 Hrs of Vital Signs/I&O Vital Signs Date Time Temp Pulse Resp B/P B/P Pulse O2 O2 Flow FiO2 Mean Ox Delivery Rate 09/13 0629 98.5 68 16 132/80 96 Room Air 09/12 2229 97.9 68 19 128/60 97 Room Air 09/12 1521 100.7 09/12 1521 100.7 81 18 122/62 94 09/12 1419 100.7 Intake & Output 09/13 1600 09/13 0800 09/13 0000 Intake Total 240 600 Output Total 450 600 Balance -210 0 Intake, IV 600 Intake, Oral 240 Number 3 1 Bowel Movements Output, Urine 450 600 Physical Exam General Appearance: Alert, Cooperative, Mild Distress Skin: No Rashes, No Breakdown HEENT: Atraumatic, PERRLA, EOMI, Mucous Membr. moist/pink Neck: Supple, No JVD Cardiovascular: Regular Rate, Normal S1, Normal S2 Lungs: Clear to Auscultation, Normal Air Movement Abdomen: Normal Bowel Sounds, Soft, DISTENDED, NO TENDERNESS Neurological: Normal Gait, Normal Speech, Strength at 5/5 X4 Ext, Normal Tone, Sensation Intact, Cranial Nerves 3-12 NL Extremities: No Edema, Normal Pulses Vascular: Normal Pulses, Pulses Symmetrical Current Medications: Current Medications Sig/Juma Start time Last Medication Dose Route Stop Time Status Admin Acetaminophen 1,000 MG .STK-MED ONE 09/12 1417 DC IV 09/12 1418 Acetaminophen 650 MG Q6P PRN 09/11 2200 AC 09/11 PO 2215 Acetaminophen 1,000 MG Q6P PRN 09/11 2200 AC 09/12 IV 1419 Azithromycin 1,200 MG QSUN 09/13 0700 AC 09/13 PO 0514 Ceftriaxone Sodium 1,000 MG DAILY 09/12 1000 AC 09/12 IV 0943 Diclofenac Sodium 1 DILLAN BID PRN 09/11 1730 AC TOP Escitalopram Oxalate 10 MG DAILY 09/12 1000 AC 09/13 PO 0923 Heparin Sodium 5,000 UNIT Q8 09/12 0600 AC 09/13 (Porcine) SC 0511 Hydrocortisone 1 DILLAN DAILY 09/12 1000 AC 09/13 TOP 0923 Hydromorphone HCl 0.5 MG Q8P PRN 09/11 2200 AC IV Insulin Aspart 0 TIDAC 09/12 0800 AC 09/13 SC 0922 Metoprolol Succinate 25 MG DAILY 09/12 1000 AC 09/13 PO 0923 Pravastatin Sodium 10 MG DAILY 09/12 1000 AC 09/13 PO 0923 Sodium Chloride 1,000 ML Q13H 09/11 1445 DC 09/12 IV 2132 Tamsulosin HCl 0.4 MG DAILY 09/12 1000 AC 09/13 PO 0923 Trimethoprim/ 1 TAB 09/14 1000 AC Sulfamethoxazole PO Zolpidem Tartrate 10 MG AT BEDTIME PRN 09/11 2200 AC PO Last 24 Hrs of Lab/Lam Results Last 24 Hrs of Labs/Mics: Laboratory Tests 09/13/17 0843: Anion Gap 11, Estimated GFR > 60, BUN/Creatinine Ratio 12.2, Lactate Dehydrogenase 343, CBC w Diff NO MAN DIFF REQ, RBC 3.50 L, MCV 91.1, MCH 30.3, RDW 13.0, MPV 9.2, Gran % 60.4, Lymphocytes % 20.2 L, Monocytes % 19.0 H, Eosinophils % 0.1, Basophils % 0.3, Absolute Granulocytes 3.1, Absolute Lymphocytes 1.0 L, Absolute Monocytes 1.0 H, Absolute Eosinophils 0, Absolute Basophils 0, PUBS MCHC 33.2 Assessment/Plan Assessment: 82 year old man with past medical history significant for CAD s/p [place] and stent, HTN, HLD, DM and BPH, HIV positive with recent CD4 count of 22 and detectable viral load admitted for fever, catheter associated urinary tract infection, weakness, and confusion. #Catheter associated urinary tract infection: Febrile overnight tmax 102.3 No urine culture sent !? Continue ceftriaxone 1gram IV daily Cory RAMIREZ on , plavix and ASA on hold Leave Eduardo catheter in place ID on board, recomend Omnicef 300mg PO bid x 7days upon discharge CAD: Continue metoprolol HIV: Continue PCP prophylaxis with Bactrim Continue antiretroviral therapy Continue MAC prophylaxis with azithromycin Consider lymphoma evaluation for retroperitoneal lymphadenopathy on prior CT BPH: Continue tamsulosin HLD: Continue statin therapy DM: Accuchecks TIDAC Novolog insulin sliding scale Monoclonal CSF bands This is not a specific finding which could be related to AIDS meylopathy, I don 't think it's an acute finding, especially it's not uncommen finding in AIDS patient, he can follow up with neurology as an outpatient #I has been notified by the nursing staff that increase confusion noticed today complared to yesterday, I did a complete neurological examination, no focal neurologic deficit, power and sensation intact in B/L upper and lower extrimity, cranial nerve I to XII is intact, he is confused BUT for me he is the same as the first day that I saw him on 09/11/2017. Will order CT head to r/o acute intracranial finding. He report nausea and epigastric pain/ bloaded with abdominal distension will order portable abdominal X-ray. Regular diet DVT ppx-heparin 5000units subcutaneous Q8H Full code Problem List: 1. Oligoclonal bands in cerebrospinal fluid 2. Symptomatic urinary tract infection 3. Multifactorial gait disorder 4. Altered mental status 5. Gait instability 6. Confusion Pain Ratin Pain Location: - Pain Goal: Remain pain free Pain Plan: - Tomorrow's Labs & Rationales: ludivina Lovelace MD,Soledad 09/13/17 0920: Attending MD Review Statement Attending Statement Attending MD Statement: examined this patient, discuss w/resident/PA/CRIMINAL JUSTICE PROFESSOR, agreed w/resident/PA/CRIMINAL JUSTICE PROFESSOR, reviewed EMR data (avail), discussed with nursing, reviewed images Attending Assessment/Plan: Pt continues to have low-grade fevers of 100.7. Hemodynamically stable. He is on IV ceftriaxone for presumed UTI as he has a Eduardo that was placed in the OR on August 27. He has AIDS on antiretrovirals and prophylaxis for MARCUS and PCP. He does have retroperitoneal adenopathy and if the infectious workup is negative we may need to consider lymphoma as the cause of his fevers. Appreciate neurological follow-up for the oligoclonal bands which probably does not carry clinical significance. And will follow closely.
--- NOTE | 2017-09-13 11:07 | PN- Infect Dx ---
Subjective Subjective: Patient c/o abdominal discomfort. Does not want to take antiretroviral therapy. No fever this am; T max 100.7F Review of Systems Comments: 12 points reviewed as noted, otherwise negative. Objective Last 24 Hrs of Vital Signs/I&O Vital Signs Date Time Temp Pulse Resp B/P B/P Pulse O2 O2 Flow FiO2 Mean Ox Delivery Rate 09/13 0629 98.5 68 16 132/80 96 Room Air 09/12 2229 97.9 68 19 128/60 97 Room Air 09/12 1521 100.7 09/12 1521 100.7 81 18 122/62 94 09/12 1419 100.7 Intake & Output 09/13 1600 09/13 0800 09/13 0000 Intake Total 240 600 Output Total 450 600 Balance -210 0 Intake, IV 600 Intake, Oral 240 Number 3 1 Bowel Movements Output, Urine 450 600 Physical Exam Other Physical Findings: He is awake and alert in no acute distress. Skin reveals no rash. HEENT poor dentition. Neck is supple with no adenopathy. Lungs are clear. Heart regular rhythm with no murmur. Abdomen is soft, nontender with positive bowel sounds. Back no CVA tenderness. Extremities no cyanosis, clubbing or edema; no significant adenopathy. Neuro is without focality. Eduardo catheter is in place. Results Last 24 Hours of Lab Results: Laboratory Tests 09/13 0843 Chemistry Sodium (137 - 145 mmol/L) 133 L Potassium (3.5 - 5.1 mmol/L) 4.1 Chloride (98 - 107 mmol/L) 101 Carbon Dioxide (22 - 30 mmol/L) 22 Anion Gap (5 - 16) 11 BUN (9 - 20 mg/dL) 11 Creatinine (0.7 - 1.2 mg/dL) 0.9 Estimated GFR (>60 ml/min) > 60 BUN/Creatinine Ratio (7 - 25 %) 12.2 Lactate Dehydrogenase (313 - 618 U/L) 343 Hematology CBC w Diff NO MAN DIFF REQ WBC (4.8 - 10.8 /CUMM) 5.2 RBC (4.70 - 6.10 /CUMM) 3.50 L Hgb (14.0 - 18.0 G/DL) 10.6 L Hct (42 - 52 %) 31.9 L MCV (80.0 - 94.0 FL) 91.1 MCH (27.0 - 31.0 PG) 30.3 RDW (11.5 - 14.5 %) 13.0 Plt Count (130 - 400 /CUMM) 149 MPV (7.4 - 10.4 FL) 9.2 Gran % (42.2 - 75.2 %) 60.4 Lymphocytes % (20.5 - 51.1 %) 20.2 L Monocytes % (1.7 - 9.3 %) 19.0 H Eosinophils % (0 - 5 %) 0.1 Basophils % (0.0 - 2.0 %) 0.3 Absolute Granulocytes (1.4 - 6.5 /CUMM) 3.1 Absolute Lymphocytes (1.2 - 3.4 /CUMM) 1.0 L Absolute Monocytes (0.10 - 0.60 /CUMM) 1.0 H Absolute Eosinophils (0.0 - 0.7 /CUMM) 0 Absolute Basophils (0.0 - 0.2 /CUMM) 0 PUBS MCHC (33.0 - 37.0 G/DL) 33.2 Last 24 Hours of Alm Results: SPEC #: [id number] KEENAN: 09/11/17 STATUS: RES RECD: 09/11/[address]: Del Troncoso MD SOURCE: BLOOD ENTR: 09/11/[address] [facility] DR: [place] BRAVO,Soledad Haley SPDESC: 1ST/VENOUS Jeff Emery MD ORDERED: BLOOD CULTURE Procedure Result > BLOOD CULTURE REPORT Preliminary 09/12/17 No growth after 1 day incubation. Specimen is examined continuously for 5 days before final report unless culture becomes positive. Recent Imaging Studies: reviewed Assessment/Plan Impression: 82-year-old man, HIV positive for 15 years, noncompliant with antiretroviral therapy until recently, with a recent CD4 count of 22, with a history of coronary artery disease, status post [place] and stent, hypertension, hyperlipidemia, diabetes and BPH, hospitalized 2 weeks prior to admission with a fever and confusion, with no focus of infection identified, discharged after 6 days of antibiotics with a Eduardo catheter admitted on September 10 with confusion and weakness, with the development of a fever with no obvious focus of infection. Treated empirically for UTI; fever curve trending down; unfortunately, no urine culture has been sent and any cultures sent at this point may well be affected by his recent antibiotics. CT of the abdomen did reveal retroperitoneal lymphadenopathy, which might raise concern for lymphoma, which could explain his fever. PCP and MARCUS prophylaxis; goal of care to addressed as he reluctant to continue antiretroviral therapy; he is at risk for opportunistic infection. Mild ORTIZ/ resolved Suggestion: 1. Ceftriaxone 1 gm qd D #3; once ready for discharge Omnicef 300 mg po bid x 7 d. 2. Monitor CBC, BMP. 3. Call if spiking high fever or if developing diarrhea.
--- NOTE | 2017-09-13 15:06 | CT SCAN REPORT ---
EXAMINATION: CT HEAD WITHOUT CONTRAST CLINICAL INFORMATION: Rule out acute intracranial pathology. Increased confusion. COMPARISON: Head CT 09/10/2017. TECHNIQUE: Contiguous axial imaging was performed from the skull base to vertex without intravenous administration of contrast. DLP: 606 mGy-cm. FINDINGS: There is no intracranial hemorrhage, large infarction, or mass lesion. There is no extra-axial collection. There is moderate scattered hypoattenuation in the bilateral cerebral white matter, which is nonspecific but likely reflects small vessel disease. There is mild diffuse brain parenchymal volume loss with prominence of the ventricles and sulci. There are chronic appearing lacunar infarcts in the bilateral basal ganglia and in the bilateral frontal lobe alvarez radiata. The ventricles are stable in size without evidence of hydrocephalus. The paranasal sinuses are clear. The mastoids and middle ear cavities are clear. There are atherosclerotic calcification of the carotid siphons and vertebral arteries. IMPRESSION: 1. No acute intracranial abnormality identified. 2. Moderate small vessel ischemic changes and chronic bilateral basal ganglia lacunar infarcts. 3. Mild brain parenchymal volume loss.
[2017-09-13 15:34] VITALS: BP 130/33
--- NOTE | 2017-09-13 16:07 | Discharge Summary ---
See Addendum Visit Information Visit Dates Admission Date: 09/11/17 Discharge Date: 09/18/2016 Hospital Course Course Attending Physician: Angela Morrison MD Primary Care Physician: uRpert BRAVO,Jeff [facility] Course: This is an 82-year-old man, HIV positive for 15 years, noncompliant with antiretroviral therapy until recently, with a recent CD4 count of 22, with a history of coronary artery disease, status post [place] and stent, hypertension, hyperlipidemia, diabetes and BPH, hospitalized 2 weeks prior to admission with confusion, fatigue and shaking chills, found to be febrile with a normal white blood cell count, negative CT of the head, negative MRI of the head and negative LP, with a traumatic Prabhakar catheterization resulting in hematuria, for which he underwent a cystoscopy, with clot evacuation, and with a CT of the abdomen and pelvis revealing prominent prostatomegaly and retrotoperineal lymphadenopathy, treated for a possible urinary tract infection versus pneumonia with a 6 day course of antibiotics, with all of his cultures negative, discharged with a Prabhakar catheter, with plans for a laser TURP on , 09/15/2017, admitted on September 10 after he was brought to the emergency room with confusion, weakness and decreased oral intake. On admission he was febrile to 100.3. Laboratory data revealed a white blood cell count of 10,000, BUN/creatinine 18 and 1.2, with normal liver enzymes. Urinalysis 50-75 RBCs/10-15 WBCs. Chest x-ray was negative. CT of the head was negative for any acute process. He was begun on Ceftriaxone, but, unfortunately, no urine culture was sent. During this hospitalization he continued to spike low-grade fever in the first 3 days but no more fever afterward, ID consult was obtained who recommended to continue to treat the patient for Prabhakar associated UTI, urine culture unfortunately sent after he was started on antibiotic therapy, abdomen/pelvis CT done at 08/26/2017 showed some retroperitoneal adenopathy that will need to be investigated. 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 He received a total of 8 days of antibiotic , he underwent Lazer TURP by his urologist , patient tolerated the procedure well and he was seen by his urologist next day, who recommend to keep prabhakar in and the patient should follow up with him next Thursday for voiding trial. Patient received a total of 8 day treatment for prabhakar associated UTI. Throughout his hospitalization we continued his antiretrovial therapy, prophylaxis (Bactrim and Azithromycin) and his other home medication, we held his oral hypoglycemic agent which will be resumed upon discharge. Patient was seen by physical therapy who recommend sharron with home health service. Complications: Non Allergies: Coded Allergies: No Known Allergies (08/26/17) Disposition Summary Disposition Principal Diagnosis: -HIV -Urinary tract infection -Altered mental status -BPH s/p lazer TURP, with prabhakar catheter in place -History of hyperlipidemia, coronary artery disease status post stent -History of diabetes -Oligoclonal bands on CSF Additional Diagnosis: As above Discharge Disposition: home health services Discharge Instructions General Discharge Information Code Status: Full Code Patient's Diet: Consistent carb 3 Patient's Activity: As tolerated Follow-Up Instructions/Appts: -Please follow up with your pcp in 1-2 weeks. -Please follow up with your urologist on Thursday (Dr. Victoria). -Please take your medications as perscribed. Medications at Discharge Discharge Medications: Continue taking these medications: Tamsulosin HCl (Tamsulosin HCl) 0.4 MG CAP.ER.24H 1 Capsule ORAL DAILY Qty = 90 Zolpidem Tartrate (Zolpidem Tartrate) 10 MG TABLET 1 Tablet ORAL Every night as needed Qty = 30 Aspirin (Ecotrin*) 81 MG TABLET. 1 Tablet ORAL DAILY Azithromycin (Azithromycin) 600 MG TABLET 2 Tablet ORAL EVERY THURSDAY Qty = 24 Sulfamethoxazole/Trimethoprim (Sulfamethoxazole-Tmp Ds Tablet) 800 MG-160 MG TABLET 1 Tablet ORAL THURSDAY, THURSDAY AND THURSDAY Qty = 30 Clopidogrel Bisulfate (Clopidogrel) 75 MG TABLET 1 Tablet ORAL DAILY Qty = 90 Escitalopram Oxalate (Escitalopram Oxalate) 10 MG TABLET 1 Tablet ORAL DAILY Qty = 30 Hydrochlorothiazide (Hydrochlorothiazide) 12.5 MG CAPSULE 1 Capsule ORAL DAILY Qty = 30 Metoprolol Succinate (Metoprolol Succinate) 25 MG TAB 1 Tablet ORAL DAILY Qty = 30 Pantoprazole Sodium (Pantoprazole Sodium) 40 MG TABLET. 1 Tablet ORAL DAILY Qty = 90 Pravastatin Sodium (Pravastatin Sodium) 10 MG TABLET 1 Tablet ORAL DAILY Qty = 90 Darunavir/Cobicistat (Prezcobix 800 MG-150 MG Tablet) 800 MG-150 MG TABLET 1 Tablet ORAL DAILY Qty = 30 Sitagliptin Phos/Metformin HCl (Janumet 50-1,000 MG Tablet) 50 MG-1,000 MG TABLET 1 Tablet ORAL TWICE DAILY Qty = 60 Dolutegravir Sodium (Tivicay) 50 MG TABLET 1 Tablet ORAL DAILY Qty = 30 Insulin Glargine,Hum.rec.anlog (Toujeo Solostar) 300 UNIT/ML (1.5 ML) INSULN.PEN 40 Unit Inject into fatty tissue DAILY Qty = 9 Diclofenac Sodium (Voltaren) 1 % GEL..GRAM. 1 Application On the skin TWICE DAILY as needed for PAIN Qty = 300 Instructions: apply to affected area(s) Pentoxifylline (Pentoxifylline) 400 MG TABLET.ER 1 Tablet ORAL DAILY Ammonium Lactate (Ammonium Lactate) 12 % LOTION 1 Application On the skin TWICE DAILY Valacyclovir HCl (Valacyclovir) 1,000 MG TABLET 1 Tablet ORAL DAILY Desonide (Desowen) 0.05 % CREAM..G. 1 Application On the skin TWICE DAILY Instructions: apply to affected area(s) Nut.tx.gluc.intoler,Lac-Fr,Soy (Glucerna) (Unknown Strength) LIQUID 1 Bottle ORAL TWICE DAILY Copies To: Angela Morrison MD
--- NOTE | 2017-09-13 17:58 | RADIOLOGY REPORT ---
EXAMINATION: XR ABDOMEN CLINICAL INDICATION: Nausea, abdominal distension. COMPARISON: Pelvic radiograph done on 09/02/2017. TECHNIQUE: AP view of the abdomen. FINDINGS: There is non-specific bowel gas pattern present. There is no abnormal soft tissue mass or calcification seen. There is a radiopaque catheter seen projecting within the pelvis at the midline, unchanged. IMPRESSION: No radiographic evidence of any bowel distention present. Stable positioning of the radiopaque catheter seen projecting at midline within the pelvis, unchanged since 09/02/2017.
[2017-09-13 22:46] VITALS: BP 128/60
[2017-09-14 06:51] VITALS: BP 124/76
[2017-09-14 09:36] LABS: ABSOLUTE BASOPHIL COUNT 0 /CUMM (0.0-0.2); ABSOLUTE EOSINOPHIL COUNT 0.1 /CUMM (0.0-0.7); ABSOLUTE LYMPH COUNT 1.2 /CUMM (1.2-3.4); BASOPHIL % 0.3 % (0.0-2.0); EOSINOPHIL % 1.2 % (0-5); HEMATOCRIT 33.2 % (42-52); MEAN CORPUSCULAR HGB 30.5 PG (27.0-31.0); MEAN CORPUSCULAR HGB CONC 33.8 G/DL (33.0-37.0); MEAN CORPUSCULAR VOLUME 90.3 FL (80.0-94.0); MEAN PLATELET VOLUME 9.4 FL (7.4-10.4); PLATELET COUNT 137 /CUMM (130-400); RBC DISTRIBUTION WIDTH 13.2 % (11.5-14.5); RED BLOOD CELL CT 3.68 /CUMM (4.70-6.10); WHITE BLOOD CELL COUNT 4.2 /CUMM (4.8-10.8)
--- NOTE | 2017-09-14 09:44 | PN- Housestaff ---
Safia Valdez MD,Terrell 09/14/17 0943: Subjective Follow-up For: Altered mental status Fever UTI History of AIDS Complaints: no complaints Subjective: Patient did not have any acute complaints to offer this morning. He was comfortably lying in the bed. He was alert and oriented to time person and place. He did mention about mild bloating and mild nausea after eating his food. No episodes of acute shortness of breath or chest pain overnight. Review of Systems Constitutional: Reports: fever. Denies: chills. Cardiovascular: Denies: chest pain, palpitations. Respiratory: Denies: short of breath. Gastrointestinal: Reports: bloating, nausea. Denies: constipation. Genitourinary: Denies: dysuria. Objective Last 24 Hrs of Vital Signs/I&O Vital Signs Date Time Temp Pulse Resp B/P B/P Pulse O2 O2 Flow FiO2 Mean Ox Delivery Rate 09/14 0733 97.5 64 19 124/76 09/14 0731 97.5 64 19 124/76 09/14 0651 97.5 60 19 124/76 97 Room Air 09/13 2246 97.5 67 19 128/60 92 Room Air 09/13 2156 97.5 09/13 204 100.2 09/13 203 100.2 09/13 1930 100.1 09/13 1534 99.2 74 18 130/33 93 Intake & Output 09/14 1600 09/14 0800 09/14 0000 Intake Total 600 225 Output Total 850 800 Balance -250 -575 Intake, IV 600 225 Number 1 Bowel Movements Output, Urine 850 800 Physical Exam General Appearance: Alert, Oriented X3, Cooperative, No Acute Distress HEENT: Atraumatic, Whitish coating on the tongue, no lesions noticed Neck: Supple Cardiovascular: Regular Rate, Normal S1, Normal S2 Lungs: Clear to Auscultation, Normal Air Movement Abdomen: Soft, mild distention, no tenderness, audible bowel sounds Extremities: No Edema Vascular: Normal Pulses Current Medications: Current Medications Sig/Juma Start time Last Medication Dose Route Stop Time Status Admin Acetaminophen 1,000 MG .STK-MED ONE 09/13 2042 DC IV 09/13 2043 Acetaminophen 650 MG Q6P PRN 09/11 2200 AC 09/11 PO 2214 Acetaminophen 1,000 MG Q6P PRN 09/11 2200 AC 12/31 IV 2046 Azithromycin 1,200 MG QSUN 09/13 0700 AC 09/13 PO 0514 Ceftriaxone Sodium 1,000 MG DAILY 09/12 1000 AC 09/14 IV 0732 Diclofenac Sodium 1 DILLAN BID PRN 09/11 1730 AC TOP Escitalopram Oxalate 10 MG DAILY 09/12 1000 AC 09/14 PO 0732 Heparin Sodium 5,000 UNIT Q8 09/12 0600 AC 09/13 (Porcine) SC 2046 Hydrocortisone 1 DILLAN DAILY 09/12 1000 AC 09/14 TOP 0731 Hydromorphone HCl 0.5 MG Q8P PRN 09/11 2200 AC IV Insulin Aspart 0 TIDAC 09/12 0800 AC 09/13 SC 1642 Metoprolol Succinate 25 MG DAILY 09/12 1000 AC 09/14 PO 0733 Ondansetron HCl 4 MG ONCE ONE 09/13 1530 DC IV 09/13 1531 Pravastatin Sodium 10 MG DAILY 09/12 1000 AC 09/14 PO 0735 Sodium Chloride 1,000 ML Q13H 09/13 1915 AC 09/14 IV 0736 Tamsulosin HCl 0.4 MG DAILY 09/12 1000 AC 09/14 PO 0731 Trimethoprim/ 1 TAB 09/14 1000 AC 09/14 Sulfamethoxazole PO 0731 Zolpidem Tartrate 10 MG AT BEDTIME PRN 09/11 2200 AC PO Last 24 Hrs of Lab/Lam Results Last 24 Hrs of Labs/Mics: Laboratory Tests 09/14/17 0835: CBC w Diff MAN DIFF ORDERED, RBC 3.68 L, MCV 90.3, MCH 30.5, RDW 13.2, MPV 9.4, Gran % 48.0, Lymphocytes % 27.7, Monocytes % 22.8 H, Eosinophils % 1.2, Basophils % 0.3, Absolute Granulocytes 2.0, Segmented Neutrophils 43, Band Neutrophils 8 H, Absolute Lymphocytes 1.2, Lymphocytes 23, Monocytes 25 H, Absolute Monocytes 1.0 H, Absolute Eosinophils 0.1, Basophils 1, Absolute Basophils 0, Platelet Estimate DECREASED, Normocytic RBCs VERIFIED, Normochromic RBCs VERIFIED, PUBS MCHC 33.8 Microbiology 09/14 0958 URINE ROUT: Urine Culture - COLB Lines/Diet/Fluids Restraints: none Assessment/Plan Assessment: 82 year old man with past medical history significant for CAD s/p [place] and stent, HTN, HLD, DM and BPH, HIV positive with recent CD4 count of 22 and detectable viral load admitted for fever, catheter associated urinary tract infection, weakness, and confusion. Patient is currently being managed by for the following problems Catheter associated urinary tract infection Febrile overnight tmax 100.2 Patient does not complain of any dysuria currently Urine culture ordered Continue ceftriaxone 1gram IV daily as per infectious disease Lazer TURP on Te09/15/17, plavix and ASA on hold Leave Eduardo catheter in place ID on board, recomend Omnicef 300mg PO bid x 7days upon discharge Altered mental status Patient was confused yesterday. No significant changes in neurological examination. CT head was done to r/o acute intracranial finding. Moderate small vessel ischemic changes and chronic bilateral basal ganglia lacunar infarcts noticed along with mild brain parenchymal volume loss. Patient is currently alert and oriented to time person and place and mental status changes resolved. Bloating and nausea He reports nausea and abdominal distension after eating. Given patient's low CD4 count possibility of esophagitis should be kept in mind. But patient denies any odynophagia. Mild hyponatremia Mild hyponatremia noticed which was also present on admission and improved. If hypornatremia gets worsen. Obtain urine electrolytes and osmolality. 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 He should follow up with neurology as an outpatient Patient is currently on regular diet Patient is on heparin for DVT prophylaxis Patient is full code Patient is on pain management Problem List: 1. Symptomatic urinary tract infection Pain Ratin Pain Location: NA Pain Goal: Pain 4 or less Pain Plan: Continue current medications Tomorrow's Labs & Rationales: CBC to follow white count BEP to follow sodium DVT/Prophylaxis: pharmacological Consulting Request: Consulting Specialty: Infectious Disease Soledad Lovelace MD 09/14/17 0956: Attending MD Review Statement Attending Statement Attending MD Statement: examined this patient, discuss w/resident/PA/FORMING AND ASSEMBLING SUPERVISOR, agreed w/resident/PA/FORMING AND ASSEMBLING SUPERVISOR, discussed with nursing, reviewed images Attending Assessment/Plan: Events yesterday noted. Patient got a CT head for questionable worsening confusion and it was nonspecific. He was nauseous and having some nonspecific abdominal complaints. This is an 82-year-old male with AIDS and CD4 count less than 50 who recently had a Eduardo put in the OR on August 27 and came in with a fever, we are treating him for a catheter associated UTI. Unfortunately the urine culture was not sent from the ED. We'll send it now but it will be on antibiotics. Please continues to have low-grade temps of 100.2. The etiology of this constellation of symptoms is unclear and we are empirically treating him with IV ceftriaxone. His LDH is not elevated although he does have some retroperitoneal adenopathy that will need to be investigated.
--- NOTE | 2017-09-14 10:30 | PN- Infect Dx ---
Subjective Subjective: Abefrile this am; recorded T max past 24 h 100.2 F; states feeling well; MS appears at baseline Review of Systems Comments: 12 points reviewed as noted, otherwise negative. Objective Last 24 Hrs of Vital Signs/I&O Vital Signs Date Time Temp Pulse Resp B/P B/P Pulse O2 O2 Flow FiO2 Mean Ox Delivery Rate 09/14 0733 97.5 64 19 124/76 09/14 0731 97.5 64 19 124/76 09/14 0651 97.5 60 19 124/76 97 Room Air 09/13 2246 97.5 67 19 128/60 92 Room Air 09/13 2156 97.5 09/13 2046 100.2 09/13 2037 100.2 09/13 1930 100.1 09/13 1534 99.2 74 18 130/33 93 Intake & Output 09/14 1600 09/14 0800 09/14 0000 Intake Total 600 225 Output Total 850 800 Balance -250 -575 Intake, IV 600 225 Number 1 Bowel Movements Output, Urine 850 800 Physical Exam Other Physical Findings: He is awake and alert in no acute distress. Skin reveals no rash. HEENT poor dentition. Neck is supple with no adenopathy. Lungs are clear. Heart regular rhythm with no murmur. Abdomen is soft, nontender with positive bowel sounds. Back no CVA tenderness. Extremities no cyanosis, clubbing or edema; no significant adenopathy. Neuro is without focality. Eduardo catheter patent Results Last 24 Hours of Lab Results: Laboratory Tests 09/14 08 Hematology CBC w Diff MAN DIFF ORDERED WBC (4.8 - 10.8 /CUMM) 4.2 L RBC (4.70 - 6.10 /CUMM) 3.68 L Hgb (14.0 - 18.0 G/DL) 11.3 L Hct (42 - 52 %) 33.2 L MCV (80.0 - 94.0 FL) 90.3 MCH (27.0 - 31.0 PG) 30.5 RDW (11.5 - 14.5 %) 13.2 Plt Count (130 - 400 /CUMM) 137 MPV (7.4 - 10.4 FL) 9.4 Gran % (42.2 - 75.2 %) 48.0 Lymphocytes % (20.5 - 51.1 %) 27.7 Monocytes % (1.7 - 9.3 %) 22.8 H Eosinophils % (0 - 5 %) 1.2 Basophils % (0.0 - 2.0 %) 0.3 Absolute Granulocytes (1.4 - 6.5 /CUMM) 2.0 Segmented Neutrophils (42.2 - 75.2 %) 43 Band Neutrophils (0.0 - 5.0 %) 8 H Absolute Lymphocytes (1.2 - 3.4 /CUMM) 1.2 Lymphocytes (20.5 - 51.1 %) 23 Monocytes (1.7 - 9.3 %) 25 H Absolute Monocytes (0.10 - 0.60 /CUMM) 1.0 H Absolute Eosinophils (0.0 - 0.7 /CUMM) 0.1 Basophils (0.0 - 2.0 %) 1 Absolute Basophils (0.0 - 0.2 /CUMM) 0 Platelet Estimate (ADEQUATE) DECREASED Normocytic RBCs VERIFIED Normochromic RBCs VERIFIED PUBS MCHC (33.0 - 37.0 G/DL) 33.8 Last 24 Hours of Lam Results: SPEC #: [id number] KEENAN: 09/14/17 STATUS: ORD RECD: - SUBM DR: [place] BRAVO,Soledad Haley SOURCE: URINE ROUT ENTR: 09/14/[address]: Rupert BRAVO,Jeff Villa SPDESC: URINE FOLE ORDERED: URINE CULTURE Procedure Result URINE CULTURE PENDING RECEIPT Recent Imaging Studies: CT head 09/13 performed for increased confusion IMPRESSION: 1. No acute intracranial abnormality identified. 2. Moderate small vessel ischemic changes and chronic bilateral basal ganglia lacunar infarcts. 3. Mild brain parenchymal volume loss. DICTATED BY: An Cooper MD DATE/TIME DICTATED:09/13/171457 AIRPORT SALES AGENT:RAJAN DATE/TIME TRANSCRIBED:09/13/171457 CONFIDENTIAL, DO NOT COPY WITHOUT APPROPRIATE AUTHORIZATION. Assessment/Plan Impression: 82-year-old man, HIV positive for 15 years, noncompliant with antiretroviral therapy until recently, with a recent CD4 count of 22, with a history of coronary artery disease, status post [place] and stent, hypertension, hyperlipidemia, diabetes and BPH, hospitalized 2 weeks prior to admission with a fever and confusion, with no focus of infection identified, discharged after 6 days of antibiotics with a Edurado catheter admitted on September 10 with confusion and weakness, with the development of a fever with no obvious focus of infection. Treated empirically for UTI, no urine culture has been sent on admission and UC 09/14/17 may well be affected by his recent antibiotics. BPH/ur retentention CT of the abdomen did reveal retroperitoneal lymphadenopathy, which might raise concern for lymphoma, which could explain his fever. PCP and MARCUS prophylaxis; goal of care to addressed as he reluctant to continue antiretroviral therapy; he is at risk for opportunistic infection. Suggestion: 1. Cont ceftriaxone 1 gm qd D #4; once ready for discharge Omnicef 300 mg po bid x in order to complete 10 d therapy 2. Monitor CBC, BMP. 3. F/U urology recom.
[2017-09-14 15:09] VITALS: BP 120/76
[2017-09-14 22:11] VITALS: BP 120/70
[2017-09-15 07:00] VITALS: BP 132/70
--- NOTE | 2017-09-15 07:37 | PN- Housestaff ---
Marcus BRAVO,[facility] 09/15/17 0736: Subjective Follow-up For: Altered mental status Fever UTI History of AIDS Subjective: She states that he is doing okay. No complaints. States that he slept throughout the night. States that he has no pain. Review of Systems Constitutional: Reports: no symptoms. Cardiovascular: Reports: no symptoms. Respiratory: Reports: no symptoms. Gastrointestinal: Reports: no symptoms. Genitourinary: Reports: no symptoms. Objective Last 24 Hrs of Vital Signs/I&O Vital Signs Date Time Temp Pulse Resp B/P B/P Pulse O2 O2 Flow FiO2 Mean Ox Delivery Rate 09/15 2157 98.1 63 20 122/80 98 09/15 1451 97.9 62 20 120/80 96 Room Air 09/15 1120 80 120/70 09/15 1116 80 120/70 09/15 0700 98.4 56 16 132/70 96 Room Air Intake & Output 09/15 1600 09/15 0800 09/15 0000 Intake Total 975 960 880 Output Total 943 655 2791 Balance 275 260 -170 Intake, IV 375 600 600 Intake, Oral 600 360 280 Number 2 2 Bowel Movements Output, Urine 406 458 5782 Physical Exam General Appearance: Alert, Oriented X3, Cooperative, No Acute Distress Skin: warm to touch Cardiovascular: Regular Rate, Normal S1, Normal S2 Lungs: Clear to Auscultation, Normal Air Movement Abdomen: Normal Bowel Sounds, Soft, No Tenderness Vascular: 2+ radial pulses Current Medications: Current Medications Sig/Juma Start time Last Medication Dose Route Stop Time Status Admin Acetaminophen 650 MG Q6P PRN 09/11 2200 AC 09/11 PO 2215 Acetaminophen 1,000 MG Q6P PRN 09/11 2200 AC 09/13 IV 2046 Azithromycin 1,200 MG QSUN 09/13 0700 AC 09/13 PO 0514 Ceftriaxone Sodium 1,000 MG DAILY 09/12 1000 AC 09/15 IV 1119 Diclofenac Sodium 1 DILLAN BID PRN 09/11 1730 AC TOP Escitalopram Oxalate 10 MG DAILY 09/12 1000 AC 09/15 PO 1117 Heparin Sodium 5,000 UNIT Q8 09/12 0600 AC 09/15 (Porcine) SC 2014 Hydrocortisone 1 DILLAN DAILY 09/12 1000 AC 09/14 TOP 0731 Hydromorphone HCl 0.5 MG Q8P PRN 09/11 2200 AC IV Insulin Aspart 0 TIDAC 09/15 1200 AC 09/15 SC 1730 Insulin Aspart 0 TIDAC 09/12 0800 DC 09/14 SC 09/15 0000 1638 Insulin Human Regular 0 Q6 09/15 0600 DC 09/15 SC 0638 Metoprolol Succinate 25 MG DAILY 09/12 1000 AC 09/15 PO 1120 Pravastatin Sodium 10 MG DAILY 09/12 1000 AC 09/15 PO 1117 Sodium Chloride 1,000 ML Q13H 09/13 1915 DC 09/14 IV 2347 Tamsulosin HCl 0.4 MG DAILY 09/12 1000 AC 09/15 PO 1116 Trimethoprim/ 1 TAB 09/14 1000 AC 09/14 Sulfamethoxazole PO 0731 Zolpidem Tartrate 10 MG AT BEDTIME PRN 09/11 2200 AC PO Last 24 Hrs of Lab/Lam Results Last 24 Hrs of Labs/Mics: Laboratory Tests 09/15/17 1645: TB Test (QFT) Mitogen Pending, TB Test Mitogen - Nil Pending, TB Test Antigen - Nil Pending, TB Test (QFT) Interp Pending 09/15/17 0825: Anion Gap 11, Estimated GFR > 60, BUN/Creatinine Ratio 11.1, CBC w Diff NO MAN DIFF REQ, RBC 3.76 L, MCV 90.6, MCH 30.3, RDW 13.5, MPV 9.6, Gran % 48.9, Lymphocytes % 36.6, Monocytes % 12.1 H, Eosinophils % 2.0, Basophils % 0.4, Absolute Granulocytes 2.1, Absolute Lymphocytes 1.6, Absolute Monocytes 0.5, Absolute Eosinophils 0.1, Absolute Basophils 0, PUBS MCHC 33.4 Assessment/Plan Assessment: 82 year old man with past medical history significant for CAD s/p [place] and stent, HTN, HLD, DM and BPH, HIV positive with recent CD4 count of 22 and detectable viral load admitted for fever, catheter associated urinary tract infection, weakness, and confusion. #Catheter associated urinary tract infection Intermittent fevers of over 100C Patient does not complain of any dysuria -Follow-up urine culture -continue ceftriaxone 1gram IV daily as per infectious disease -Lazer TURP on 09/17/17, plavix and ASA on hold -Leave Prabhakar catheter in place -recomend Omnicef 300mg PO bid x 7days total treatment upon discharge #Altered mental status episode - currently resolved CT head:Moderate small vessel ischemic changes and chronic bilateral basal ganglia lacunar infarcts noticed along with mild brain parenchymal volume loss. -contineu to monitor #Bloating and nausea He reports nausea and abdominal distension after eating. Given patient's low CD4 count possibility of esophagitis should be kept in mind. But patient denies any odynophagia. -continue to monitor #Mild hyponatremia Mild hyponatremia noticed which was also present on admission and improved. If hypornatremia gets worsen. Obtain urine electrolytes and osmolality. 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 He should follow up with neurology as an outpatient # heparin for DVT prophylaxis #full code Problem List: 1. Symptomatic urinary tract infection Pain Ratin Pain Location: none Pain Goal: Pain 4 or less Pain Plan: pathway Tomorrow's Labs & Rationales: cbc bep Consulting Request: Consulting Specialty: Infectious Disease Angela Morrison 09/15/17 1337: Attending MD Review Statement Attending Statement Attending MD Statement: examined this patient, discuss w/resident/PA/CRITICAL CARE UNIT NURSE, agreed w/resident/PA/CRITICAL CARE UNIT NURSE, discussed with family, reviewed EMR data (avail), discussed with nursing, discussed with case mgmt, reviewed images, amended to note Attending Assessment/Plan: 82 year old man with past medical history significant for CAD s/p [place] and stent, HTN, HLD, DM and BPH, HIV positive with recent CD4 count of 50 and detectable viral load admitted for fever, catheter associated urinary tract infection, weakness, and confusion. Patient seen/examined bedside. Patient afebrile. He is on iv antibiotics. His prabhakar catheter in place with no hematuria. WBC 4.4. Cr 0.9 ID and urology consulted during this hospital admission. Plan is to continue with iv antibiotics and urology for TURP. Plan for TURP as per urology. cont his home meds. HIV meds as per ID. asa/plavix Held in anticipation of procedure. RISS and titrate insulin as needed. gi/dvt prophylaxis full code.
[2017-09-15 09:39] LABS: ABSOLUTE BASOPHIL COUNT 0 /CUMM (0.0-0.2); ABSOLUTE EOSINOPHIL COUNT 0.1 /CUMM (0.0-0.7); ABSOLUTE GRANULOCYTE CT 2.1 /CUMM (1.4-6.5); ABSOLUTE LYMPH COUNT 1.6 /CUMM (1.2-3.4); ABSOLUTE MONOCYTE COUNT 0.5 /CUMM (0.10-0.60); BASOPHIL % 0.4 % (0.0-2.0); GRANULOCYTE % 48.9 % (42.2-75.2); MEAN CORPUSCULAR HGB 30.3 PG (27.0-31.0); MEAN CORPUSCULAR HGB CONC 33.4 G/DL (33.0-37.0); MEAN CORPUSCULAR VOLUME 90.6 FL (80.0-94.0); MEAN PLATELET VOLUME 9.6 FL (7.4-10.4); PLATELET COUNT 155 /CUMM (130-400); RBC DISTRIBUTION WIDTH 13.5 % (11.5-14.5); RED BLOOD CELL CT 3.76 /CUMM (4.70-6.10); WHITE BLOOD CELL COUNT 4.4 /CUMM (4.8-10.8)
--- NOTE | 2017-09-15 13:05 | PN- Infect Dx ---
Subjective Subjective: Afebrile without complaints Objective Last 24 Hrs of Vital Signs/I&O Vital Signs Date Time Temp Pulse Resp B/P B/P Pulse O2 O2 Flow FiO2 Mean Ox Delivery Rate 09/15 1120 80 120/70 09/15 1116 80 120/70 09/15 0700 98.4 56 16 132/70 96 Room Air 09/14 2211 98.9 66 18 120/70 96 09/14 1509 97.1 64 18 120/76 96 Room Air Intake & Output 09/15 1600 09/15 0800 09/15 0000 Intake Total 960 880 Output Total 700 1050 Balance 260 -170 Intake, IV 600 600 Intake, Oral 360 280 Number 2 Bowel Movements Output, Urine 700 1050 Physical Exam Other Physical Findings: He appears comfortable in no acute distress Lungs are clear Heart regular rhythm with no murmur Abdomen is mildly distended, nontender with positive bowel sounds Back no CVA tenderness Extremities no cyanosis, clubbing or edema Results Last 24 Hours of Lab Results: Laboratory Tests 09/15 0825 Chemistry Sodium (137 - 145 mmol/L) 139 Potassium (3.5 - 5.1 mmol/L) 4.3 Chloride (98 - 107 mmol/L) 106 Carbon Dioxide (22 - 30 mmol/L) 22 Anion Gap (5 - 16) 11 BUN (9 - 20 mg/dL) 10 Creatinine (0.7 - 1.2 mg/dL) 0.9 Estimated GFR (>60 ml/min) > 60 BUN/Creatinine Ratio (7 - 25 %) 11.1 Hematology CBC w Diff NO MAN DIFF REQ WBC (4.8 - 10.8 /CUMM) 4.4 L RBC (4.70 - 6.10 /CUMM) 3.76 L Hgb (14.0 - 18.0 G/DL) 11.4 L Hct (42 - 52 %) 34.0 L MCV (80.0 - 94.0 FL) 90.6 MCH (27.0 - 31.0 PG) 30.3 RDW (11.5 - 14.5 %) 13.5 Plt Count (130 - 400 /CUMM) 155 MPV (7.4 - 10.4 FL) 9.6 Gran % (42.2 - 75.2 %) 48.9 Lymphocytes % (20.5 - 51.1 %) 36.6 Monocytes % (1.7 - 9.3 %) 12.1 H Eosinophils % (0 - 5 %) 2.0 Basophils % (0.0 - 2.0 %) 0.4 Absolute Granulocytes (1.4 - 6.5 /CUMM) 2.1 Absolute Lymphocytes (1.2 - 3.4 /CUMM) 1.6 Absolute Monocytes (0.10 - 0.60 /CUMM) 0.5 Absolute Eosinophils (0.0 - 0.7 /CUMM) 0.1 Absolute Basophils (0.0 - 0.2 /CUMM) 0 PUBS MCHC (33.0 - 37.0 G/DL) 33.4 Last 24 Hours of Lam Results: Urine culture September 14 negative Blood cultures September 10 negative Blood cultures September 11 negative Assessment/Plan Impression: Stable with no further fevers and with white blood cell count remaining normal on Ceftriaxone Day 4 of treatment for possible sepsis, with blood cultures negative and with no urine culture sent until yesterday. The most likely source of infection is the urinary tract, with 10-15 white blood cells and moderate bacteria on his UA, in the setting of BPH, for which he was to undergo a laser TURP today. This is apparently being delayed for 2 days for unclear reasons. Suggestion: 1. Await laser TURP per Urology 2. Continue Ceftriaxone pending above
[2017-09-15 14:51] VITALS: BP 120/80
[2017-09-15 21:57] VITALS: BP 122/80
[2017-09-16 06:56] VITALS: BP 132/80
[2017-09-16 10:20] LABS: ABSOLUTE BASOPHIL COUNT 0 /CUMM (0.0-0.2); ABSOLUTE EOSINOPHIL COUNT 0.2 /CUMM (0.0-0.7); ABSOLUTE GRANULOCYTE CT 2.3 /CUMM (1.4-6.5); ABSOLUTE LYMPH COUNT 1.7 /CUMM (1.2-3.4); ABSOLUTE MONOCYTE COUNT 0.4 /CUMM (0.10-0.60); BASOPHIL % 0.4 % (0.0-2.0); EOSINOPHIL % 3.5 % (0-5); GRANULOCYTE % 50.6 % (42.2-75.2); HEMATOCRIT 32.5 % (42-52); MEAN CORPUSCULAR HGB 30.4 PG (27.0-31.0); MEAN CORPUSCULAR HGB CONC 33.7 G/DL (33.0-37.0); MEAN CORPUSCULAR VOLUME 90.1 FL (80.0-94.0); MEAN PLATELET VOLUME 9.9 FL (7.4-10.4); RBC DISTRIBUTION WIDTH 13.3 % (11.5-14.5); RED BLOOD CELL CT 3.61 /CUMM (4.70-6.10); WHITE BLOOD CELL COUNT 4.6 /CUMM (4.8-10.8)
[2017-09-16 10:49] LABS: PLATELET COUNT 164 /CUMM (130-400)
--- NOTE | 2017-09-16 11:23 | PN- Housestaff ---
See Addendum Marcus BRAVO,[facility] 09/16/17 1123: Subjective Follow-up For: prabhakar associate urosepsis Subjective: Pt states he is doing well. Slept throughout the night. Had 2 episodes of soft stools last night associated with abd pain. Abd pain relieved after patient went to bathroom. Daughter states mental status is much improved. Review of Systems Constitutional: Reports: no symptoms. Cardiovascular: Reports: no symptoms. Respiratory: Reports: no symptoms. Gastrointestinal: Reports: see HPI, abdominal pain, changes in stool. Genitourinary: Reports: no symptoms. Musculoskeletal: Reports: no symptoms. Objective Last 24 Hrs of Vital Signs/I&O Vital Signs Date Time Temp Pulse Resp B/P B/P Pulse O2 O2 Flow FiO2 Mean Ox Delivery Rate 09/16 1450 98.1 62 18 132/64 98 Room Air 09/16 0956 62 130/60 09/16 0952 60 130/60 09/16 0656 98.0 50 16 132/80 98 Room Air 09/15 2157 98.1 63 20 122/80 98 Intake & Output 09/16 1600 09/16 0800 09/16 0000 Intake Total 600 900 Output Total 500 1000 750 Balance -500 -400 150 Intake, Oral 600 900 Output, Urine 500 1000 750 Patient 174 lb Weight Physical Exam General Appearance: Alert, Oriented X3, Cooperative, No Acute Distress Skin Temp/Moisture Exam: Warm/Dry Cardiovascular: Regular Rate, Normal S1, Normal S2 Lungs: Clear to Auscultation, Normal Air Movement Abdomen: Normal Bowel Sounds, Soft, No Tenderness Extremities: 2+ radial pulses Other Physical Findings: prabhakar - clear dark yellow urine Current Medications: Current Medications Sig/Juma Start time Last Medication Dose Route Stop Time Status Admin Acetaminophen 650 MG Q6P PRN 09/110 AC 09/11 PO 2215 Acetaminophen 1,000 MG Q6P PRN 09/11 2200 AC 09/13 IV 2046 Azithromycin 1,200 MG QSUN 09/13 0700 AC 09/13 PO 0514 Ceftriaxone Sodium 1,000 MG DAILY 09/17 1000 AC IV Ceftriaxone Sodium 1,000 MG DAILY 09/12 1000 DC 09/16 IV 0955 Dextrose/Sodium 1,000 ML Q20H 09/17 0000 AC Chloride IV Diclofenac Sodium 1 DILLAN BID PRN 09/11 1730 AC TOP Escitalopram Oxalate 10 MG DAILY 09/12 1000 AC 09/16 PO 0953 Heparin Sodium 5,000 UNIT Q8 09/12 0600 DC 09/16 (Porcine) SC 1304 Hydrocortisone 1 DILLAN DAILY 09/12 1000 AC 09/14 TOP 0731 Hydromorphone HCl 0.5 MG Q8P PRN 09/11 2200 AC IV Insulin Aspart 0 TIDAC 09/15 1200 AC 09/16 SC 09/16 2355 1304 Insulin Human Regular 0 Q6 09/16 2359 AC SC Insulin Human Regular 0 Q6 09/16 1800 CAN SC Lactobacillus 1 CAP BID 09/16 1002 AC 09/16 Acidophilus PO 2034 Metoprolol Succinate 25 MG DAILY 09/12 1000 AC 09/16 PO 0956 Patient Medication 1 ED ONE ONE 09/16 1230 DC 09/16 Teaching ED 09/16 1231 1304 Pravastatin Sodium 10 MG DAILY 09/12 1000 AC 09/16 PO 0953 Tamsulosin HCl 0.4 MG DAILY 09/12 1000 AC 09/16 PO 0952 Trimethoprim/ 1 TAB 09/14 1000 AC 09/16 Sulfamethoxazole PO 0952 Zolpidem Tartrate 10 MG AT BEDTIME PRN 09/11 2200 AC PO Last 24 Hrs of Lab/Lam Results Last 24 Hrs of Labs/Mics: Laboratory Tests 09/16/17 0809: Anion Gap 12, Estimated GFR > 60, BUN/Creatinine Ratio 10.0, CBC w Diff NO MAN DIFF REQ, RBC 3.61 L, MCV 90.1, MCH 30.4, RDW 13.3, MPV 9.9, Gran % 50.6, Lymphocytes % 36.0, Monocytes % 9.5 H, Eosinophils % 3.5, Basophils % 0.4, Absolute Granulocytes 2.3, Absolute Lymphocytes 1.7, Absolute Monocytes 0.4, Absolute Eosinophils 0.2, Absolute Basophils 0, PUBS MCHC 33.7 Assessment/Plan Assessment: 82 year old man with past medical history significant for CAD s/p LA and stent, HTN, HLD, DM and BPH, HIV positive with recent CD4 count of 22 and detectable viral load admitted for fever, catheter associated urinary tract infection, weakness, and confusion. #Catheter associated urinary tract infection Intermittent fevers of over 100C Patient does not complain of any dysuria Urine cx negative thus far (sent late after starting several days of abx) -Follow-up urine culture -continue ceftriaxone 1gram IV daily as per infectious disease -Lazer TURP on 09/17/17, plavix and ASA on hold -Leave Prabhakar catheter in place -recomend Omnicef 300mg PO bid x 7days total treatment upon discharge #Altered mental status episode - currently resolved CT head:Moderate small vessel ischemic changes and chronic bilateral basal ganglia lacunar infarcts noticed along with mild brain parenchymal volume loss. -contineu to monitor #Bloating and nausea He reports nausea and abdominal distension after eating. Given patient's low CD4 count possibility of esophagitis should be kept in mind. But patient denies any odynophagia. -continue to monitor #Mild hyponatremia Mild hyponatremia noticed which was also present on admission and improved. If hypornatremia gets worsen. Obtain urine electrolytes and osmolality. 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 He should follow up with neurology as an outpatient # heparin for DVT prophylaxis #full code Problem List: 1. Symptomatic urinary tract infection Pain Ratin Pain Location: none Pain Goal: Pain 4 or less Pain Plan: pain pathway Tomorrow's Labs & Rationales: cbc bep Consulting Request: Consulting Specialty: Infectious Disease Angela Morrison 09/16/17 1524: Attending MD Review Statement Attending Statement Attending MD Statement: examined this patient, discuss w/resident/PA/NEWS PRODUCTION ASSISTANT, agreed w/resident/PA/NEWS PRODUCTION ASSISTANT, discussed with family, reviewed EMR data (avail), discussed with nursing, discussed with case mgmt, reviewed images, amended to note Attending Assessment/Plan: 82 year old man with past medical history significant for CAD s/p LA and stent, HTN, HLD, DM and BPH, HIV positive with recent CD4 count of 50 and detectable viral load admitted for fever, catheter associated urinary tract infection, weakness, and confusion. Patient seen/examined bedside. Patient afebrile. He is on iv antibiotics. His prabhakar catheter in place with no hematuria. WBC 4.4. Cr 0.9 ID and urology consulted during this hospital admission. Plan is to continue with iv antibiotics and urology for TURP. Plan for TURP as per urology. NPO past MN. cont his home meds. HIV meds as per ID. asa/plavix Held in anticipation of procedure. RISS and titrate insulin as needed. gi/dvt prophylaxis full code.
--- NOTE | 2017-09-16 12:06 | Cons- Urology ---
General Information and HPI Consulting Request Date of Consult: 09/16/17 Requested By: Angela Morrison MD Reason for Consult: urinary retention/infection Source of Information: patient, old records Exam Limitations: poor historian History of Present Illness: 82 year old man with past medical history significant for CAD s/p DC and stent, HTN, HLD, DM and BPH, HIV positive noncompliant with antiretroviral therapy and CD4 count of 22 on 08/27/17 (managed by Jeff Mishra at [facility] in [place]), who was recently admitted with fever and altered mental status presents was admitted for fever and sepsis of urological origin after being observed in the ED for weakness and confusion. On the recent admission, there was no leukocytosis, CT and MRI of the head were negative. An LP was performed and negative for infectious causes. The hospitalization was complicated by a traumatic Pollard placement requiring urology , pollard placement, cystoscopy and irrigation for hematuria. The patient was treated for urinary tract infection and possible pneumonia because of an infiltrate on chest CT. He was scheduled with Dr. Victoria for a TURP on Thursday. His daughter noticed that he was hallucinating and seemed shaky and progressively more weak over the last two days. He is normally very independent in terms of ambulation and his iADLs but has become progressively weaker and had difficulty ambulating with home physical therapy so she brought him in to the ED. His only complaints at the time of evaluation were some nausea, abdominal distention and a couple episodes of nonbloody, largely watery emesis in the day prior to admission. His chest x-ray in the ED was unremarkable and urinalysis had pyuria. He spiked a fever to a max temperature of 102.1 and was started on ceftriaxone. At the time of evaluation he has no specific complaints and is mentating well, responding and interacting appropriately. Of note on his previous admission, the CSF studies were negative for lyme, HSV was pending and lumbar puncture was positive for oligoclonal bands of unclear significance. Also his abdominal CT showed retroperitoneal lymphadenopathy. LASER TURP HAS BEEN DELAYED UNTIL PT MORE CLINICALLY STABLE FOR SURGERY. Allergies/Medications Allergies: Coded Allergies: No Known Allergies (08/26/17) Home Med List: Ammonium Lactate 12 % LOTION 1 DILLAN TOP BID SKIN (Reported) Aspirin (Ecotrin*) 81 MG TABLET.DR 1 TAB PO DAILY HEART HEALTH (Reported) Azithromycin 600 MG TABLET 2 TAB PO QSUN ANTIBIOTIC (Reported) Clopidogrel Bisulfate (Clopidogrel) 75 MG TABLET 1 TAB PO DAILY HEART HEALTH (Reported) Darunavir/Cobicistat (Prezcobix 800 MG-150 MG Tablet) 800 MG-150 MG TABLET 1 TAB PO DAILY HIV (Reported) Desonide (Desowen) 0.05 % CREAM..G. 1 DILLAN TOP BID SKIN (Reported) apply to affected area(s) Diclofenac Sodium (Voltaren) 1 % GEL..GRAM. 1 DILLAN TOP BID PRN PAIN (Reported) apply to affected area(s) Dolutegravir Sodium (Tivicay) 50 MG TABLET 1 TAB PO DAILY HIV (Reported) Escitalopram Oxalate 10 MG TABLET 1 TAB PO DAILY DEPRESSION (Reported) Hydrochlorothiazide 12.5 MG CAPSULE 1 CAP PO DAILY HEART HEALTH (Reported) Insulin Glargine,Hum.rec.anlog (Tothaddeus Solostar) 300 UNIT/ML (1.5 ML) INSULN.PEN 40 UNIT SC DAILY DM (Reported) Metoprolol Succinate 25 MG TAB 1 TAB PO DAILY HEART HEALTH (Reported) Nut.tx.gluc.intoler,Lac-Fr,Soy (Glucerna) (Unknown Strength) LIQUID (Unknown Dose) PO BID NUTRITIONAL SUPPLEMENT (Reported) Pantoprazole Sodium 40 MG TABLET.DR 1 TAB PO DAILY HEART HEALTH (Reported) Pentoxifylline 400 MG TABLET.ER 1 TAB PO DAILY UNKNOWN (Reported) Pravastatin Sodium 10 MG TABLET 1 TAB PO DAILY HEART HEALTH (Reported) Sitagliptin Phos/Metformin HCl (Janumet 50-1,000 MG Tablet) 50 MG-1,000 MG TABLET 1 TAB PO BID DM (Reported) Sulfamethoxazole/Trimethoprim (Sulfamethoxazole-Tmp Ds Tablet) 800 MG-160 MG TABLET 1 TAB PO Thursday ABT (Reported) Tamsulosin HCl 0.4 MG CAP.ER.24H 1 CAP PO DAILY ENLARGED PROSTATE (Reported) Valacyclovir HCl (Valacyclovir) 1,000 MG TABLET 1 TAB PO DAILY ANTIVIRAL ( Reported) Zolpidem Tartrate 10 MG TABLET 1 TAB PO QPMP SLEEP AIDE (Reported) Current Medications: Current Medications Sig/Juma Start time Last Medication Dose Route Stop Time Status Admin Acetaminophen 650 MG Q6P PRN 09/11 2200 AC 09/11 PO 2214 Acetaminophen 1,000 MG Q6P PRN 09/11 2200 AC 09/13 IV 2046 Azithromycin 1,200 MG QSUN 09/13 0700 AC 09/13 PO 0514 Ceftriaxone Sodium 1,000 MG DAILY 09/12 1000 DC 09/16 IV 0955 Diclofenac Sodium 1 DILLAN BID PRN 09/11 1730 AC TOP Escitalopram Oxalate 10 MG DAILY 09/12 1000 AC 09/16 PO 0953 Heparin Sodium 5,000 UNIT Q8 09/12 0600 AC 09/16 (Porcine) SC 0646 Hydrocortisone 1 DILLAN DAILY 09/12 1000 AC 09/14 TOP 0731 Hydromorphone HCl 0.5 MG Q8P PRN 09/11 2200 AC IV Insulin Aspart 0 TIDAC 09/15 1200 AC 09/15 SC 1730 Lactobacillus 1 CAP BID 09/16 1002 AC Acidophilus PO Metoprolol Succinate 25 MG DAILY 09/12 1000 AC 09/16 PO 0956 Pravastatin Sodium 10 MG DAILY 09/12 1000 AC 09/16 PO 0953 Sodium Chloride 1,000 ML Q13H 09/13 1915 DC 09/14 IV 2347 Tamsulosin HCl 0.4 MG DAILY 09/12 1000 AC 09/16 PO 0952 Trimethoprim/ 1 TAB 09/14 1000 AC 09/16 Sulfamethoxazole PO 0952 Zolpidem Tartrate 10 MG AT BEDTIME PRN 09/11 2200 AC PO Past History Medical History Blood Transfusion Hx: No Neurological: NONE EENT: glaucoma Cardiovascular: CAD (s/p stent), hypertension, myocardial infarction Respiratory: NONE Gastrointestinal: GERD Hepatic: NONE Renal: benign prost hyperplasia Musculoskeletal: NONE Psychiatric: depression Endocrine: diabetes Blood Disorders: HIV Cancer(s): NONE 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 Home Services at Home: Home Health Aide Smoking Status: Never Smoked Employment History Retired? yes Review of Systems Review of Systems Constitutional: Reports: malaise. EENTM: Denies: no symptoms. Cardiovascular: Denies: no symptoms. Respiratory: Denies: no symptoms. GI: Denies: no symptoms. Musculoskeletal: Reports: muscle stiffness. Skin: Denies: no symptoms. Neurological/Psychological: Reports: confusion. Exam & Diagnostic Data Vital Signs and I&O Vital Signs Date Time Temp Pulse Resp B/P B/P Pulse O2 O2 Flow FiO2 Mean Ox Delivery Rate 09/16 0956 62 130/60 09/16 0952 60 130/60 09/16 0656 98.0 50 16 132/80 98 Room Air 09/15 2157 98.1 63 20 122/80 98 09/15 1451 97.9 62 20 120/80 96 Room Air Intake & Output 09/16 1600 09/16 0800 09/16 0000 09/15 1600 09/15 0800 09/15 0000 Intake Total 600 900 975 960 880 Output Total 1000 750 178 499 5650 Balance -400 150 275 260 -170 Intake, IV 375 600 600 Intake, Oral 600 900 600 360 280 Number 2 2 Bowel Movements Output, Urine 1000 750 213 408 6344 Physical Exam General Appearance: well developed/nourished, no apparent distress Head: atraumatic Eyes: Bilateral: normal appearance. Respiratory: normal breath sounds Cardiovascular: regular rate/rhythm Gastrointestinal: normal bowel sounds, soft, non-tender Rectal: normal exam Back: no vertebral tenderness Extremities: normal inspection Skin: intact, normal color, warm/dry Reproductive: Normal male genitalia, POLLARD Last 24 Hours of Labs: Laboratory Tests 09/16 09/15 0809 1645 Chemistry Sodium (137 - 145 mmol/L) 142 Potassium (3.5 - 5.1 mmol/L) 4.5 Chloride (98 - 107 mmol/L) 106 Carbon Dioxide (22 - 30 mmol/L) 24 Anion Gap (5 - 16) 12 BUN (9 - 20 mg/dL) 9 Creatinine (0.7 - 1.2 mg/dL) 0.9 Estimated GFR (>60 ml/min) > 60 BUN/Creatinine Ratio (7 - 25 %) 10.0 Hematology CBC w Diff NO MAN DIFF REQ WBC (4.8 - 10.8 /CUMM) 4.6 L RBC (4.70 - 6.10 /CUMM) 3.61 L Hgb (14.0 - 18.0 G/DL) 11.0 L Hct (42 - 52 %) 32.5 L MCV (80.0 - 94.0 FL) 90.1 MCH (27.0 - 31.0 PG) 30.4 RDW (11.5 - 14.5 %) 13.3 Plt Count (130 - 400 /CUMM) 164 MPV (7.4 - 10.4 FL) 9.9 Gran % (42.2 - 75.2 %) 50.6 Lymphocytes % (20.5 - 51.1 %) 36.0 Monocytes % (1.7 - 9.3 %) 9.5 H Eosinophils % (0 - 5 %) 3.5 Basophils % (0.0 - 2.0 %) 0.4 Absolute Granulocytes (1.4 - 6.5 /CUMM) 2.3 Absolute Lymphocytes (1.2 - 3.4 /CUMM) 1.7 Absolute Monocytes (0.10 - 0.60 /CUMM) 0.4 Absolute Eosinophils (0.0 - 0.7 /CUMM) 0.2 Absolute Basophils (0.0 - 0.2 /CUMM) 0 PUBS MCHC (33.0 - 37.0 G/DL) 33.7 Serology TB Test (QFT) Mitogen Pending TB Test Mitogen - Nil Pending TB Test Antigen - Nil Pending TB Test (QFT) Interp Pending Imaging Results: PATIENT: TRAVIS PRYOR PRESENT AGE: 82 PATIENT ACCOUNT NO: [id number] : 35 LOCATION: 2NA ORDERING PHYSICIAN: Lisset Gonzales MD SERVICE DATE: 09/13/17- EXAM TYPE: RAD - [id number] VIEW EXAMINATION: XR ABDOMEN CLINICAL INDICATION: Nausea, abdominal distension. COMPARISON: Pelvic radiograph done on 09/02/2017. TECHNIQUE: AP view of the abdomen. FINDINGS: There is non-specific bowel gas pattern present. There is no abnormal soft tissue mass or calcification seen. There is a radiopaque catheter seen projecting within the pelvis at the midline, unchanged. IMPRESSION: No radiographic evidence of any bowel distention present. Stable positioning of the radiopaque catheter seen projecting at midline within the pelvis, unchanged since 09/02/2017. DICTATED BY: Samuel Thurston MD DATE/TIME DICTATED:09/13/171743 INVESTIGATION DIVISION LIEUTENANT:RAJAN DATE/TIME TRANSCRIBED:09/13/171743 CONFIDENTIAL, DO NOT COPY WITHOUT APPROPRIATE AUTHORIZATION. <Electronically signed in Other Vendor System> SIGNED BY: Samuel Thurston MD 09/13/17 5771 Assessment/Plan Assessment/Plan bph/urinary retention/WILL DELAY TURP UNTIL OVERALL CLINICALLY IMPROVED FOR THIS 82 YEAR OLD. Copies To: Wing Victoria MD Consult Acknowledgment - Thank you for your consult request. Attending MD Review Statement Attending Statement Attending MD Statement: examined this patient, discussed w/nursing Attending Assessment/Plan: pt with bph retention/plan is cystoscopy-possible UROLIFT/Laser TURP tomorrow AM. hold anti-coagulants and NPO at midnight.
[2017-09-16 14:50] VITALS: BP 132/64
--- NOTE | 2017-09-16 14:57 | PN- Infect Dx ---
Subjective Subjective: Afebrile without complaints Objective Last 24 Hrs of Vital Signs/I&O Vital Signs Date Time Temp Pulse Resp B/P B/P Pulse O2 O2 Flow FiO2 Mean Ox Delivery Rate 09/16 1450 98.1 62 18 132/64 98 Room Air 09/16 0956 62 130/60 09/16 0952 60 130/60 09/16 0656 98.0 50 16 132/80 98 Room Air 09/15 2157 98.1 63 20 122/80 98 Intake & Output 09/16 1600 09/16 0800 09/16 0000 Intake Total 600 900 Output Total 1000 750 Balance -400 150 Intake, Oral 600 900 Output, Urine 1000 750 Patient 174 lb Weight Physical Exam Other Physical Findings: He appears comfortable in no acute distress Lungs are clear Heart regular rhythm with no murmur Abdomen is mildly distended, nontender with positive bowel sounds Back no CVA tenderness Eduardo catheter remains in place Results Last 24 Hours of Lab Results: Laboratory Tests 09/16 09/15 0809 1645 Chemistry Sodium (137 - 145 mmol/L) 142 Potassium (3.5 - 5.1 mmol/L) 4.5 Chloride (98 - 107 mmol/L) 106 Carbon Dioxide (22 - 30 mmol/L) 24 Anion Gap (5 - 16) 12 BUN (9 - 20 mg/dL) 9 Creatinine (0.7 - 1.2 mg/dL) 0.9 Estimated GFR (>60 ml/min) > 60 BUN/Creatinine Ratio (7 - 25 %) 10.0 Hematology CBC w Diff NO MAN DIFF REQ WBC (4.8 - 10.8 /CUMM) 4.6 L RBC (4.70 - 6.10 /CUMM) 3.61 L Hgb (14.0 - 18.0 G/DL) 11.0 L Hct (42 - 52 %) 32.5 L MCV (80.0 - 94.0 FL) 90.1 MCH (27.0 - 31.0 PG) 30.4 RDW (11.5 - 14.5 %) 13.3 Plt Count (130 - 400 /CUMM) 164 MPV (7.4 - 10.4 FL) 9.9 Gran % (42.2 - 75.2 %) 50.6 Lymphocytes % (20.5 - 51.1 %) 36.0 Monocytes % (1.7 - 9.3 %) 9.5 H Eosinophils % (0 - 5 %) 3.5 Basophils % (0.0 - 2.0 %) 0.4 Absolute Granulocytes (1.4 - 6.5 /CUMM) 2.3 Absolute Lymphocytes (1.2 - 3.4 /CUMM) 1.7 Absolute Monocytes (0.10 - 0.60 /CUMM) 0.4 Absolute Eosinophils (0.0 - 0.7 /CUMM) 0.2 Absolute Basophils (0.0 - 0.2 /CUMM) 0 PUBS MCHC (33.0 - 37.0 G/DL) 33.7 Serology TB Test (QFT) Mitogen Pending TB Test Mitogen - Nil Pending TB Test Antigen - Nil Pending TB Test (QFT) Interp Pending Last 24 Hours of Lam Results: Urine culture September 14 negative Assessment/Plan Impression: Stable with temperatures and white blood cell count remaining normal on Ceftriaxone Day 5 of treatment for possible sepsis, with blood cultures negative and with no urine culture sent until 2 days ago, after several days of antibiotics. The most likely source of infection is the urinary tract, with 10-15 white blood cells and moderate bacteria on his UA, with a Eduardo catheter in place prior to admission in the setting of BPH, for which he is to undergo a laser TURP in the a.m. Suggestion: 1. Await laser TURP in the a.m. 2. Continue Ceftriaxone pending above
[2017-09-16 22:52] VITALS: BP 120/70
[2017-09-17 06:30] VITALS: BP 132/76
--- NOTE | 2017-09-17 07:51 | PN- Housestaff ---
Marcus BRAVO,[facility] 09/17/17 0751: Subjective Follow-up For: prabhakar associated UTI sepsis HIV Subjective: Patient states he continues to have abdominal pain with loose bowel movements. Had 2 loose bowel movements last night. States that his abdominal pain is better after the bathroom. Denies any other symptoms or fever. Review of Systems Constitutional: Reports: see HPI. Denies: fever. Cardiovascular: Reports: no symptoms. Respiratory: Reports: no symptoms. Gastrointestinal: Reports: abdominal pain, changes in stool. Genitourinary: Reports: see HPI. Objective Last 24 Hrs of Vital Signs/I&O Vital Signs Date Time Temp Pulse Resp B/P B/P Pulse O2 O2 Flow FiO2 Mean Ox Delivery Rate 09/17 1001 62 132/60 09/17 1000 62 132/76 09/17 0630 98.2 59 20 132/76 96 Room Air 09/16 2252 98.5 58 20 120/70 98 Intake & Output 09/17 1600 09/17 0800 09/17 0000 Intake Total 640 240 Output Total 800 450 Balance -160 -210 Intake, IV 400 Intake, Oral 240 240 Number 1 Bowel Movements Output, Urine 800 450 Physical Exam General Appearance: Alert, Oriented X3, Cooperative, No Acute Distress Skin Temp/Moisture Exam: Warm/Dry Cardiovascular: Regular Rate, Normal S1, Normal S2 Lungs: Clear to Auscultation, Normal Air Movement Abdomen: Normal Bowel Sounds, Soft, No Tenderness Vascular: 2+ radial pulses Current Medications: Current Medications Sig/Juma Start time Last Medication Dose Route Stop Time Status Admin Acetaminophen 650 MG Q6P PRN 09/11 2200 AC 09/11 PO 2215 Acetaminophen 1,000 MG Q6P PRN 09/11 2200 AC 09/13 IV 2046 Azithromycin 1,200 MG QSUN 09/13 0700 DC 09/13 PO 0514 Ceftriaxone Sodium 1,000 MG DAILY 09/17 1000 AC 09/17 IV 1002 Dextrose/Sodium 1,000 ML Q20H 09/17 0000 AC 09/16 Chloride IV 2343 Diclofenac Sodium 1 DILLAN BID PRN 09/11 1730 AC TOP Escitalopram Oxalate 10 MG DAILY 09/12 1000 AC 09/17 PO 1002 Hydrocortisone 1 DILLAN DAILY 09/12 1000 AC 09/14 TOP 0731 Hydromorphone HCl 0.5 MG Q8P PRN 09/11 2200 AC IV Insulin Aspart 0 TIDAC 09/15 1200 DC 09/16 SC 09/16 2355 1304 Insulin Human Regular 2 UNITS .STK-MED ONE 09/17 0603 DC IV 09/17 0604 Insulin Human Regular 0 Q6 09/16 2359 AC 09/17 SC 0604 Insulin Human Regular 0 Q6 09/16 1800 CAN SC Lactobacillus 1 CAP BID 09/16 1002 AC 09/17 Acidophilus PO 1001 Metoprolol Succinate 25 MG DAILY 09/12 1000 AC 09/17 PO 1001 Pravastatin Sodium 10 MG DAILY 09/12 1000 AC 09/16 PO 0953 Tamsulosin HCl 0.4 MG DAILY 09/12 1000 AC 09/17 PO 1000 Trimethoprim/ 1 TAB 09/14 1000 AC 09/16 Sulfamethoxazole PO 0952 Zolpidem Tartrate 10 MG AT BEDTIME PRN 09/11 2200 AC PO Last 24 Hrs of Lab/Lam Results Last 24 Hrs of Labs/Mics: Laboratory Tests 09/17/17 0800: Anion Gap 9, Estimated GFR > 60, BUN/Creatinine Ratio 10.0, CBC w Diff NO MAN DIFF REQ, RBC 3.66 L, MCV 89.6, MCH 29.9, RDW 13.1, MPV 9.5, Gran % 53.1, Lymphocytes % 34.8, Monocytes % 8.1, Eosinophils % 3.4, Basophils % 0.6, Absolute Granulocytes 2.9, Absolute Lymphocytes 1.9, Absolute Monocytes 0.4, Absolute Eosinophils 0.2, Absolute Basophils 0, PUBS MCHC 33.3 Microbiology 09/17 1349 STOOL: Cryptosporidium Antigen - ORD 09/17 1349 STOOL: Giardia Antigen (LAM) - ORD 09/17 1349 STOOL: Clostridium difficile Toxin A & B - ORD 09/17 1349 STOOL: Stool Culture - ORD Assessment/Plan Assessment: 82 year old man with past medical history significant for CAD s/p IL and stent, HTN, HLD, DM and BPH, HIV positive with recent CD4 count of 22 and detectable viral load admitted for fever, catheter associated urinary tract infection, weakness, and confusion. #Catheter associated urinary tract infection Intermittent fevers of over 100C Patient does not complain of any dysuria Urine cx negative thus far (sent late after starting several days of abx) -Cory TURP today 09/17/17, plavix and ASA on hold -Follow-up urine culture -continue ceftriaxone 1gram IV daily as per infectious disease -Leave Prabhakar catheter in place -recomend Omnicef 300mg PO bid x 7days total treatment upon discharge #Altered mental status episode - currently resolved CT head:Moderate small vessel ischemic changes and chronic bilateral basal ganglia lacunar infarcts noticed along with mild brain parenchymal volume loss. -continue to monitor #Bloating and nausea He reports nausea and abdominal distension after eating. Given patient's low CD4 count possibility of esophagitis should be kept in mind. But patient denies any odynophagia. -continue to monitor #Mild hyponatremia Mild hyponatremia noticed which was also present on admission and improved. If hypornatremia gets worsen. Obtain urine electrolytes and osmolality. 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 He should follow up with neurology as an outpatient # heparin for DVT prophylaxis #full code Problem List: 1. Symptomatic urinary tract infection Pain Ratin Pain Location: none Pain Goal: Pain 4 or less Pain Plan: pain pathway Tomorrow's Labs & Rationales: cbc bep Consulting Request: Consulting Specialty: Infectious Disease Angela Morrison 09/17/17 1122: Attending Review Statement Attending Statement Attending MD Statement: examined this patient, discuss w/resident/PA/ENGINE HOUSE HELPER, agreed w/resident/PA/ENGINE HOUSE HELPER, discussed with family, reviewed EMR data (avail), discussed with nursing, discussed with case mgmt, reviewed images, amended to note Attending Assessment/Plan: 82 year old man with past medical history significant for CAD s/p IL and stent, HTN, HLD, DM and BPH, HIV positive with recent CD4 count of 50 and detectable viral load admitted for fever, catheter associated urinary tract infection, weakness, and confusion. Patient seen/examined bedside. Patient afebrile. He is on iv antibiotics. His prabhakar catheter in place with no hematuria. WBC 4.4. Cr 0.9 ID and urology consulted during this hospital admission. Patient for TURP today. Plan is to continue with iv antibiotics and urology for TURP. Plan for TURP as per urology. cont his home meds. HIV meds as per ID. asa/plavix Held in anticipation of procedure. RISS and titrate insulin as needed. gi/dvt prophylaxis full code.
[2017-09-17 09:27] LABS: ABSOLUTE BASOPHIL COUNT 0 /CUMM (0.0-0.2); ABSOLUTE EOSINOPHIL COUNT 0.2 /CUMM (0.0-0.7); ABSOLUTE GRANULOCYTE CT 2.9 /CUMM (1.4-6.5); ABSOLUTE LYMPH COUNT 1.9 /CUMM (1.2-3.4); ABSOLUTE MONOCYTE COUNT 0.4 /CUMM (0.10-0.60); BASOPHIL % 0.6 % (0.0-2.0); EOSINOPHIL % 3.4 % (0-5); GRANULOCYTE % 53.1 % (42.2-75.2); HEMATOCRIT 32.8 % (42-52); MEAN CORPUSCULAR HGB 29.9 PG (27.0-31.0); MEAN CORPUSCULAR HGB CONC 33.3 G/DL (33.0-37.0); MEAN CORPUSCULAR VOLUME 89.6 FL (80.0-94.0); MEAN PLATELET VOLUME 9.5 FL (7.4-10.4); PLATELET COUNT 187 /CUMM (130-400); RBC DISTRIBUTION WIDTH 13.1 % (11.5-14.5); RED BLOOD CELL CT 3.66 /CUMM (4.70-6.10); WHITE BLOOD CELL COUNT 5.4 /CUMM (4.8-10.8)
--- NOTE | 2017-09-17 13:35 | Operative Report ---
Operative/Inv Procedure Report Surgery Date: 09/17/17 Name of Procedure: LASER TURP, CYSTOSCOPY Pre-Operative Diagnosis: BPH-URINARY RETENTION Post-Operative Diagnosis: SAME Estimated Blood Loss: less than 50ml Surgeon/Chest Painting Leader: MD ANNIKA, [facility] Anesthesia: laryngeal mask airway Drains: 18 FR PRABHAKAR Specimens: PROSTATE CHIP Complications: NONE Operative/Procedure Note Note: The patient was taken to the operating room and placed on the OR table in supine position. Timeout was performed, with the patient awake, in order to confirm the patient's correct identity, procedure, laterality, antibiotics, and other pertinent manolo-operative information. After adequate anesthesia and antibiotics , the indwelling prabhakar was removed. The patient was then draped and prepped in the usual surgical fashion. He was positioned comfortably and securely in Yellow-Fin stirrups. A lubricated 22 Liberian cystoscope sheath with 30 angle lens was inserted under direct visualization. On entering the prostatic urethra, the prostate gland was noted to have significantly obstructing bilateral prostate lobes, and a small- moderate sized middle lobe. The veru-montanum was noted to be normal. Upon entering the bladder, through a narrowed bladder neck, the bladder was noted to be trabeculated with multiple cellules. There was no evidence of bladder tumor, nor stones. Both ureteral orifices were noted to be in their orthotopic position with clear reflux bilaterally. The bladder was drained, via the cystoscope, and the cystoscope was removed. A 26 Liberian laser resectoscope sheath was then inserted into the penis, with a 30 angle lens, under direct visualization. Maintaining the cystoscope at the level of the veru-montanum, the diode laser fiber was then inserted through the scope and visualized directly in front of the laser resectoscope sheath, in proper orientation. Photo-vaporization of the left lobe was performed in order to open a wide prostatic urethral channel on the left side. The resection proceeded from the 2-6 o'clock position, obliterating the glandular tissue, but not reaching or penetrating the capsule. Laser TURP was performed in a sweeping manner in order to get good vaporization of the prostate lobe, and good hemostasis. The resection of the left apical lobe was haulted at the level of the vera montanum, so as to preserve the external sphincter. Once the left lobe was resected in a satisfactory manner, the right lobe of the prostate was then photo vaporized in the same manner from the 10:00 to the 6 o'clock position. Once again the resection of the right lobe was haulted at the level of the veru- montanum. The middle lobe was then photo vaporized, with the diode laser, in order to further open the prostatic channel adequately. Once hemostasis and an open channel was confirmed, the resectoscope was then reinserted into the bladder. The bladder was again thoroughly and systematically surveyed in order to confirm no evidence of injury to the bladder or orifices. The bladder was copiously irrigated in order to us to ensure no foreign body was in the bladder. The bladder was left full and the resectoscope was then removed under direct visualization again confirming good hemostasis. The patient was noted to have spontaneous drainage upon removal of the resectoscope. All sponge, needle, and instrument count were correct at the end of the case. AN 18 Liberian Prabhakar catheter was then inserted, and drained clear fluid, prior to inflating the 10 mL balloon. The Prabhakar catheter was attached to a drainage bag. All sponge needle and instrument count were correct at the end of the case. The patient tolerated the procedure well, and was taken to the recovery room in satisfactory condition. Findings: 40 GRM 3CM PROST. Discharge Disposition: PACU Additional Comments: RETURN TO MED. FLOOR: VOIDING TRIAL NEXT WEEK OUT PATIENT. CC: Wing Victoria MD
[2017-09-17 22:07] VITALS: BP 128/62
[2017-09-18 06:25] VITALS: BP 138/70
--- NOTE | 2017-09-18 07:14 | PN- Housestaff ---
Marcus BRAVO,[facility] 09/18/17 0713: Subjective Follow-up For: UTI urosepsis BPH s/p turp Subjective: No acute events overnight. Pt had TURP yesterday. States slight discomfort. No other complaints. Review of Systems Constitutional: Reports: see HPI. Cardiovascular: Reports: no symptoms. Respiratory: Reports: no symptoms. Gastrointestinal: Reports: no symptoms. Genitourinary: Reports: see HPI (pain). Objective Last 24 Hrs of Vital Signs/I&O Vital Signs Date Time Temp Pulse Resp B/P B/P Pulse O2 O2 Flow FiO2 Mean Ox Delivery Rate 09/18 09 73 138/70 09/18 0916 73 138/70 09/18 0625 98.7 73 20 138/70 96 Room Air Intake & Output 09/18 1600 09/18 0800 09/18 0000 Intake Total 600 100 400 Output Total 650 750 750 Balance -50 -650 -350 Intake, IV 0 Intake, Oral 600 100 400 Number 0 2 Bowel Movements Output, Urine 650 750 750 Physical Exam General Appearance: Alert, Oriented X3, Cooperative, No Acute Distress Skin Temp/Moisture Exam: Warm/Dry Cardiovascular: Regular Rate, Normal S1, Normal S2 Lungs: Clear to Auscultation, Normal Air Movement Abdomen: Normal Bowel Sounds, Soft, No Tenderness Vascular: 2+ radial pulses Current Medications: Current Medications Sig/Juma Start time Last Medication Dose Route Stop Time Status Admin Acetaminophen 650 MG Q6P PRN 09/11 2200 DCD 09/11 PO 2215 Acetaminophen 1,000 MG Q6P PRN 09/11 2200 DCD 09/13 IV 2046 Ceftriaxone Sodium 1,000 MG DAILY 09/17 1000 DC 09/18 IV 0915 Diclofenac Sodium 1 DILLAN BID PRN 09/11 1730 DCD TOP Escitalopram Oxalate 10 MG DAILY 09/12 1000 DCD 09/18 PO 0917 Hydrocortisone 1 DILLAN DAILY 09/12 1000 DCD 09/18 TOP 0918 Hydromorphone HCl 0.5 MG Q8P PRN 09/11 2200 DCD IV Insulin Aspart 0 TIDAC 09/17 1700 DCD 09/18 SC 1311 Lactobacillus 1 CAP BID 09/16 1002 DCD 09/18 Acidophilus PO 0914 Metoprolol Succinate 25 MG DAILY 09/12 1000 DCD 09/18 PO 0916 Pravastatin Sodium 10 MG DAILY 09/12 1000 DCD 09/18 PO 0914 Tamsulosin HCl 0.4 MG DAILY 09/12 1000 DCD 09/18 PO 0916 Trimethoprim/ 1 TAB 09/14 1000 DCD 09/18 Sulfamethoxazole PO 09 Zolpidem Tartrate 10 MG AT BEDTIME PRN 09/11 2200 DCD PO Last 24 Hrs of Lab/Lam Results Last 24 Hrs of Labs/Mics: Laboratory Tests 09/18/17 0740: Anion Gap 11, Estimated GFR > 60, BUN/Creatinine Ratio 12.2, CBC w Diff NO MAN DIFF REQ, RBC 3.87 L, MCV 91.6, MCH 30.0, RDW 13.3, MPV 9.6, Gran % 64.6, Lymphocytes % 24.1, Monocytes % 7.3, Eosinophils % 3.7, Basophils % 0.3, Absolute Granulocytes 5.4, Absolute Lymphocytes 2.0, Absolute Monocytes 0.6, Absolute Eosinophils 0.3, Absolute Basophils 0, PUBS MCHC 32.7 L Assessment/Plan Assessment: 82 year old man with past medical history significant for CAD s/p AR and stent, HTN, HLD, DM and BPH, HIV positive with recent CD4 count of 22 and detectable viral load admitted for fever, catheter associated urinary tract infection, weakness, and confusion. #Catheter associated urinary tract infection Intermittent fevers of over 100C during admission Patient does not complain of any dysuria Urine cx negative thus far (sent late after starting several days of abx) S/P Lazer TURP 09/17/17 -discontinue ceftriaxone as per infectious disease -discharge with prabhakar and f/u with urology on thursday #Monoclonal CSF bands This is not a specific finding and could be related to AIDS meylopathy. Per neurology: CSF OCB's likely not of clinical significancce neurologically, not likely being produced intrathecally since also present in serum -f/u with PCP and neurology f/u if patient wishes #Altered mental status episode - currently resolved CT head:Moderate small vessel ischemic changes and chronic bilateral basal ganglia lacunar infarcts noticed along with mild brain parenchymal volume loss. -continue to monitor #Bloating and nausea He reports nausea and abdominal distension after eating. Given patient's low CD4 count possibility of esophagitis should be kept in mind. But patient denies any odynophagia. -continue to monitor #Mild hyponatremia - currently resolved Mild hyponatremia noticed which was also present on admission and improved. If hypornatremia gets worsen. Obtain urine electrolytes and osmolality. #History of coronary artery disease Continue metoprolol #HIV Continue PCP prophylaxis with Bactrim Continue antiretroviral therapy Continue MAC prophylaxis with azithromycin Consider lymphoma evaluation for retroperitoneal lymphadenopathy on prior CT #BPH Continue tamsulosin #HLD Continue statin therapy #DM Accuchecks TIDAC Novolog insulin sliding scale # heparin for DVT prophylaxis #full code Problem List: 1. Symptomatic urinary tract infection 2. BPH (benign prostatic hyperplasia) Pain Ratin Pain Location: Pain Goal: Pain 4 or less Pain Plan: Pain pathway Tomorrow's Labs & Rationales: none Consulting Request: Consulting Specialty: Infectious Disease Angela Morrison 09/18/17 1205: Attending MD Review Statement Attending Statement Attending MD Statement: examined this patient, discuss w/resident/PA/CURATOR HORTICULTURAL MUSEUM, agreed w/resident/PA/CURATOR H[employer]ICULTURAL MUSEUM, discussed with family, reviewed EMR data (avail), discussed with nursing, discussed with case mgmt, reviewed images, amended to note Attending Assessment/Plan: 82 year old man with past medical history significant for CAD s/p AR and stent, HTN, HLD, DM and BPH, HIV positive with recent CD4 count of 50 and detectable viral load admitted for fever, catheter associated urinary tract infection, weakness, and confusion. Patient seen/examined bedside. Patient afebrile. His prabhakar catheter in place with no hematuria. No new complaints. His epsiode of loose stools better now. ID and urology consulted during this hospital admission. Patient s/p TURP. Plan is to cont his home meds at discharge. HIV meds as per ID. Abx as per ID. Resume asa/plavix. RISS and titrate insulin as needed. gi/dvt prophylaxis full code. Anctipate dc soon home as per PT.
--- NOTE | 2017-09-18 07:43 | PN- Urology ---
Surgical Brief Attending Note Brief Attending Note: Pt AOx3: no complaints overnight. VSS afebrile. U/O clear yellow overnight post op day 1. abd soft. no cvat. Plan: dc plan per med. with vanna. Pt to see me next thursday for voiding trial.
--- NOTE | 2017-09-18 08:40 | Patient Discharge Instructions ---
Discharge Instructions General Discharge Information Special Instructions: Please follow up with your pcp in 1-2 weeks. Please follow up with your urologist on Thursday (Dr. Victoria). Please take your medications as perscribed. Acute Coronary Syndrome Inclusion Criteria At DC or during hospital stay patient has or had the following: Discharge Core Measures Meds if any: Prescribed or Continued at Discharge Meds if any: NOT Prescribed or Continued at Discharge Congestive Heart Failure Inclusion Criteria At DC or during hospital stay patient has or had the following: Discharge Core Measures Meds if any: Prescribed or Continued at Discharge Meds if any: NOT Prescribed or Continued at Discharge Cerebrovascular accident Inclusion Criteria At DC or during hospital stay patient has or had the following: CVA/TIA Diagnosis No Discharge Core Measures Meds if any: Prescribed or Continued at Discharge Meds if any: NOT Prescribed or Continued at Discharge Venous thromboembolism Discharge Core Measures - Per Current guidelines, there needs to be overlap - treatment for the first 5 days of Warfarin therapy. - If discharged on Warfarin prior to 5 days of - overlap therapy, the patient will need to be - assessed for post discharge needs including - *Post discharge parental anticoagulation - *Warfarin and/or parental anticoagulation education - *Follow up date to check INR post discharge Meds if any: Prescribed or Continued at Discharge Note: Overlap Therapy is Warfarin and Anticoagulant Meds if any: NOT Prescribed or Continued at Discharge
[2017-09-18 09:16] VITALS: BP 138/70
[2017-09-18 09:31] LABS: ABSOLUTE BASOPHIL COUNT 0 /CUMM (0.0-0.2); ABSOLUTE EOSINOPHIL COUNT 0.3 /CUMM (0.0-0.7); ABSOLUTE GRANULOCYTE CT 5.4 /CUMM (1.4-6.5); BASOPHIL % 0.3 % (0.0-2.0); EOSINOPHIL % 3.7 % (0-5); MEAN PLATELET VOLUME 9.6 FL (7.4-10.4); RED BLOOD CELL CT 3.87 /CUMM (4.70-6.10)
[2017-09-18 09:46] LABS: ABSOLUTE MONOCYTE COUNT 0.6 /CUMM (0.10-0.60); GRANULOCYTE % 64.6 % (42.2-75.2); HEMATOCRIT 35.5 % (42-52); MEAN CORPUSCULAR HGB CONC 32.7 G/DL (33.0-37.0); MEAN CORPUSCULAR VOLUME 91.6 FL (80.0-94.0); PLATELET COUNT 200 /CUMM (130-400); RBC DISTRIBUTION WIDTH 13.3 % (11.5-14.5)
[2017-09-18 09:52] LABS: WHITE BLOOD CELL COUNT 8.4 /CUMM (4.8-10.8)
--- NOTE | 2017-09-18 13:05 | PN- Infect Dx ---
Subjective Subjective: Afebrile without complaints Objective Last 24 Hrs of Vital Signs/I&O Vital Signs Date Time Temp Pulse Resp B/P B/P Pulse O2 O2 Flow FiO2 Mean Ox Delivery Rate 09/18 915 73 138/70 09/18 0916 73 138/70 09/18 0625 98.7 73 20 138/70 96 Room Air 09/17 2207 98.7 50 20 128/62 96 Room Air Intake & Output 09/18 1600 09/18 0800 09/18 0000 Intake Total 100 400 Output Total 750 750 Balance -650 -350 Intake, IV 0 Intake, Oral 100 400 Number 0 2 Bowel Movements Output, Urine 750 750 Physical Exam Other Physical Findings: He appears comfortable in no acute distress Back no CVA tenderness Eduardo catheter remains in place Results Last 24 Hours of Lab Results: Laboratory Tests 09/18 0740 Chemistry Sodium (137 - 145 mmol/L) 140 Potassium (3.5 - 5.1 mmol/L) 5.0 Chloride (98 - 107 mmol/L) 106 Carbon Dioxide (22 - 30 mmol/L) 23 Anion Gap (5 - 16) 11 BUN (9 - 20 mg/dL) 11 Creatinine (0.7 - 1.2 mg/dL) 0.9 Estimated GFR (>60 ml/min) > 60 BUN/Creatinine Ratio (7 - 25 %) 12.2 Hematology CBC w Diff NO MAN DIFF REQ WBC (4.8 - 10.8 /CUMM) 8.4 RBC (4.70 - 6.10 /CUMM) 3.87 L Hgb (14.0 - 18.0 G/DL) 11.6 L Hct (42 - 52 %) 35.5 L MCV (80.0 - 94.0 FL) 91.6 MCH (27.0 - 31.0 PG) 30.0 RDW (11.5 - 14.5 %) 13.3 Plt Count (130 - 400 /CUMM) 200 MPV (7.4 - 10.4 FL) 9.6 Gran % (42.2 - 75.2 %) 64.6 Lymphocytes % (20.5 - 51.1 %) 24.1 Monocytes % (1.7 - 9.3 %) 7.3 Eosinophils % (0 - 5 %) 3.7 Basophils % (0.0 - 2.0 %) 0.3 Absolute Granulocytes (1.4 - 6.5 /CUMM) 5.4 Absolute Lymphocytes (1.2 - 3.4 /CUMM) 2.0 Absolute Monocytes (0.10 - 0.60 /CUMM) 0.6 Absolute Eosinophils (0.0 - 0.7 /CUMM) 0.3 Absolute Basophils (0.0 - 0.2 /CUMM) 0 PUBS MCHC (33.0 - 37.0 G/DL) 32.7 L Last 24 Hours of Lam Results: No new cultures Assessment/Plan Impression: Stable, status post laser TURP yesterday for BPH, with temperatures and white blood cell count remaining normal on Ceftriaxone, now day 7 of treatment for possible sepsis of urologic origin, with no urine culture sent until he had already received several days of antibiotics. Suggestion: 1. Discontinue Ceftriaxone and follow off antibiotics
== END 2017-09-18 14:40 | disposition home health service (06) | DRG 665 ==
LOC: ERH 13:53 → ERHI 19:06 → 2NA 09-11 13:32 → EDBEDREQTM 09-11 13:36 → EDBEDREQDT 09-11 13:36 → EDBEDREQ 09-11 13:36 → ENRESERV 09-11 14:37 → ENTRNSPT 09-11 16:34 → EDTRNSPT 09-11 16:46 → EDTRNSPTSTS 09-11 16:46 → 2NA 09-11 17:14 → CMPTRNSPT 09-11 17:15 → 2NA 09-15 07:58 → ENTRNSPT 09-17 14:28 → CMPTRNSPT 09-17 15:11 → ENPENDDIS 09-18 13:56 → ENTRNSPT 09-18 14:24 → EDTRNSPT 09-18 14:32 → EDTRNSPTSTS 09-18 14:32 → 2NA 09-18 14:40 → CMPTRNSPT 09-18 14:51
PROVIDERS: Physician Assistant Medical; Student in an Organized Health Care Education/Training Program
PROC: 0VB08ZZ Excision of Prostate, Via Natural or Artificial Opening Endoscopic (ICD-10-PCS; principal; 2017-09-17)
DX: T83.511A Infection and inflammatory reaction due to indwelling urethral catheter, initial encounter (principal); B20 Human immunodeficiency virus [HIV] disease; N17.9 Acute kidney failure, unspecified; E87.1 Hypo-osmolality and hyponatremia; E11.9 Type 2 diabetes mellitus without complications; R44.3 Hallucinations, unspecified; N40.1 Benign prostatic hyperplasia with lower urinary tract symptoms; Z91.14 Patient's other noncompliance with medication regimen; R33.8 Other retention of urine; I25.10 Atherosclerotic heart disease of native coronary artery without angina pectoris; I25.2 Old myocardial infarction; Z95.5 Presence of coronary angioplasty implant and graft; I10 Essential (primary) hypertension; E78.5 Hyperlipidemia, unspecified; N40.0 Benign prostatic hyperplasia without lower urinary tract symptoms; R59.0 Localized enlarged lymph nodes; K21.9 Gastro-esophageal reflux disease without esophagitis; F32.9 Major depressive disorder, single episode, unspecified; Z79.4 Long term (current) use of insulin
CPT/HCPCS: 2NAP; 2NASP; 6030; 86480; 36415; 74000; 81001; 82436; 87040; 87045; 87086; 87328; 87329; 87804; 87804-59; 93005; 93010; 97110-GO; 97116-GO; 97161-GP; 97530-GO; 99291; G0378; J0131; J0696; J1644; J1815; J2405; J3490; J7042

== ENCOUNTER 2017-09-26 04:06 | Inpatient (IN) | payer OTHER ==
[~2017-09-26] VITALS: Ht 170.2 cm; Wt 74.8 kg
[~2017-09-26 04:06] MED LIST changes: +AMMONIUM LACTA226 GM TOP; +DESOWEN60 GM TOP; +GLUCERNA237 ML PO; +PENTOXIFYLLINE400 M1 PO; +VALACYCLOVIR1000 MG PO
--- NOTE | 2017-09-26 04:34 | ED GENERAL ADULT ---
History of Present Illness General Chief Complaint: General Adult Stated Complaint: PER DAUGHTER PT WEAK,FALLS Source: patient, family Exam Limitations: no limitations Vital Signs & Intake/Output Vital Signs & Intake/Output Vital Signs Date Time Temp Pulse Resp B/P B/P Pulse O2 O2 Flow FiO2 Mean Ox Delivery Rate 09/26 0618 98.4 80 18 112/59 96 Room Air 09/26 0436 98.6 96 22 133/68 97 Room Air Allergies Coded Allergies: No Known Allergies (08/26/17) Reconcile Medications Ammonium Lactate 12 % LOTION 1 DILLAN TOP BID SKIN (Reported) Aspirin (Ecotrin*) 81 MG TABLET.DR 1 TAB PO DAILY HEART HEALTH (Reported) Azithromycin 600 MG TABLET 2 TAB PO QSUN ANTIBIOTIC (Reported) Clopidogrel Bisulfate (Clopidogrel) 75 MG TABLET 1 TAB PO DAILY HEART HEALTH (Reported) Darunavir/Cobicistat (Prezcobix 800 MG-150 MG Tablet) 800 MG-150 MG TABLET 1 TAB PO DAILY HIV (Reported) Desonide (Desowen) 0.05 % CREAM..G. 1 DILLAN TOP BID SKIN (Reported) apply to affected area(s) Diclofenac Sodium (Voltaren) 1 % GEL..GRAM. 1 DILLAN TOP BID PRN PAIN (Reported) apply to affected area(s) Dolutegravir Sodium (Tivicay) 50 MG TABLET 1 TAB PO DAILY HIV (Reported) Escitalopram Oxalate 10 MG TABLET 1 TAB PO DAILY DEPRESSION (Reported) Hydrochlorothiazide 12.5 MG CAPSULE 1 CAP PO DAILY HEART HEALTH (Reported) Insulin Glargine,Hum.rec.anlog (Toujeo Solostar) 300 UNIT/ML (1.5 ML) INSULN.PEN 40 UNIT SC DAILY DM (Reported) Metoprolol Succinate 25 MG TAB 1 TAB PO DAILY HEART HEALTH (Reported) Nut.tx.gluc.intoler,Lac-Fr,Soy (Glucerna) (Unknown Strength) LIQUID 1 BOT PO BID NUTRITIONAL SUPPLEMENT (Reported) Pantoprazole Sodium 40 MG TABLET.DR 1 TAB PO DAILY HEART HEALTH (Reported) Pentoxifylline 400 MG TABLET.ER 1 TAB PO DAILY UNKNOWN (Reported) Pravastatin Sodium 10 MG TABLET 1 TAB PO DAILY HEART HEALTH (Reported) Sitagliptin Phos/Metformin HCl (Janumet 50-1,000 MG Tablet) 50 MG-1,000 MG TABLET 1 TAB PO BID DM (Reported) Sulfamethoxazole/Trimethoprim (Sulfamethoxazole-Tmp Ds Tablet) 800 MG-160 MG TABLET 1 TAB PO Thursday ABT (Reported) Tamsulosin HCl 0.4 MG CAP.ER.24H 1 CAP PO DAILY ENLARGED PROSTATE (Reported) Valacyclovir HCl (Valacyclovir) 1,000 MG TABLET 1 TAB PO DAILY ANTIVIRAL ( Reported) Zolpidem Tartrate 10 MG TABLET 1 TAB PO QPMP SLEEP AIDE (Reported) Triage Note: PER DAUGHTER HERE ALL THE TIME JUST DISCHARGED 1 WEEK AGO, PT INCREASINGLY WEAK, PER DAUGHTER NOT EATING MUCH, AND DOES NOT WANT TO EAT TONIGHT FOUND IN BR HOLDING HIMSELF UP , PER DAUGHTER CANNOT BE CATHED FOR URINE B/C HE JUST HAD A TURP LASAR. Triage Nurses Notes Reviewed? yes Onset: Gradual Duration: day(s): Timing: recent history Injury Environment: home Severity: moderate Modifying Factors: Improves With: rest. Associated Symptoms: WEAKNESS HPI: 82 yo gentleman h/o hiv, h/o prostatectomy (laser), discharged 6 days ago. His daughter reports that he has not been eating for the past 2-3 days. The, he did not take his morning meds yesterday, but did take them in the evening. She notes weakness, increased confusion, without chest pain, shortness of breath. Per his daughter, "I found him tonight leaning against the wall of the bathroom... He couldn't walk.... Then, after we brought him back to bed, he had an accident..... Then I found him leaning over the end table, too weak to get up... something is really wrong... He just has stopped eating. He is otherwise well. Past History Travel History Traveled to [place] past 21 day No Medical History Any Pertinent Medical History? 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 No Review of Systems Review of Systems Constitutional: Reports: no symptoms. EENTM: Reports: no symptoms. Respiratory: Reports: no symptoms. Cardiovascular: Reports: no symptoms. GI: Reports: no symptoms. Genitourinary: Reports: no symptoms. Musculoskeletal: Reports: no symptoms. Skin: Reports: no symptoms. Neurological/Psychological: Reports: no symptoms. Hematologic/Endocrine: Reports: no symptoms. Immunologic/Allergic: Reports: no symptoms. All Other Systems: Reviewed and Negative Physical Exam Physical Exam General Appearance: cachetic, sedated, mild distress Head: atraumatic, normal appearance Eyes: Bilateral: normal appearance. Ears, Nose, Throat: normal pharynx, normal ENT inspection, hearing grossly normal Neck: normal inspection, supple, full range of motion, JVD Respiratory: normal breath sounds, chest non-tender, no respiratory distress, quiet respiration, lungs clear Gastrointestinal: normal bowel sounds, soft, non-tender, no organomegaly Back: normal inspection, normal range of motion Extremities: normal inspection, normal capillary refill Neurologic/Psych: no motor/sensory deficits, awake, alert, oriented x 3 Skin: intact, normal color, warm/dry Core Measures ACS in differential dx? No CVA/TIA Diagnosis: No Sepsis Present: No Sepsis Focused Exam Completed? No Progress Differential Diagnoses I considered the following diagnoses in my evaluation of the patient: dehydration, uti, renal failure, vs other. Plan of Care: Orders Procedure Date/time Status Nothing by Mouth 09/26 B Active Saline Lock 09/[address] in observation 09/26 639 Active Misc Message 09/26 639 Active ED Holding Orders 09/26 639 Active Vital Signs 09/26 639 Active Code Status 09/26 639 Active CULTURE,URINE 09/26 0443 Active URINALYSIS 09/26 409 Active TROPONIN LEVEL 09/26 041 Complete LIPASE 09/26 0410 Complete HEPATIC FUNCTION PANEL 09/26 041 Complete CBC WITHOUT DIFFERENTIAL 09/26 409 Complete BASIC METABOLIC PANEL 09/26 409 Complete AMYLASE 09/26 409 Complete EKG 09/26 041 Active Current Medications Sig/Juma Start time Last Medication Dose Stop Time Status Admin Sodium Chloride 1,000 ML BOLUS ONE 09/26 0645 AC (Normal Saline 0.9%) 09/26 0744 Laboratory Tests 09/26/17 0450: Anion Gap 16, Estimated GFR 45 L, BUN/Creatinine Ratio 14.7, Glucose 152 H, Calcium 9.1, Total Bilirubin 1.2, Direct Bilirubin 0.4, AST 19, ALT 23, Alkaline Phosphatase 104, Troponin I < 0.01, Total Protein 7.3, Albumin 3.7, Amylase 67, Lipase 72, CBC w Diff NO MAN DIFF REQ, RBC 4.06 L, MCV 90.0, MCH 29.1, RDW 13.8 , MPV 8.8, Gran % 78.5 H, Lymphocytes % 10.6 L, Monocytes % 10.7 H, Eosinophils % 0.2, Basophils % 0, Absolute Granulocytes 7.3 H, Absolute Lymphocytes 1.0 L, Absolute Monocytes 1.0 H, Absolute Eosinophils 0, Absolute Basophils 0, PUBS MCHC 32.4 L Microbiology 09/26 0443 URINE ROUT: Urine Culture - ORD Diagnostic Imaging: Viewed by Me: Radiology Read, CT Scan. Discussed w/RAD: Radiology Read, CT Scan. Radiology Impression: PATIENT: TRAVIS PRYOR PRESENT AGE: 82 PATIENT ACCOUNT NO: [id number] : 35 LOCATION: [facility] ORDERING PHYSICIAN: Clint Perez MD SERVICE DATE: 09/26/17 EXAM TYPE: CAT - CT CERV SPINE WO IV CONTRAST; CT HEAD WO IV CONTRAST EXAMINATION: NONCONTRAST HEAD CT NONCONTRAST CERVICAL SPINE CT INDICATION INFORMATION: Fall. Mental status change. COMPARISON: 09/13/2017 TECHNIQUE: Separate noncontrast CT examinations of the head and cervical spine were performed. Coronal and sagittal images were created for each examination at the technologist workstation. DLP: 1164 mGy-cm FINDINGS: Head: There is no evidence of acute intracranial hemorrhage or territorial infarction. No abnormal mass effect or midline shift is seen. Gagnon to white matter differentiation is well preserved. No extra-axial fluid collections are identified. No hydrocephalus. Proportional prominence of the ventricles and sulcal spaces is consistent with mild volume loss. Patchy periventricular and deep white matter hypoattenuation is consistent with moderate small vessel ischemic changes. The osseous structures and soft tissues are normal. The mastoid air cells and visualized portions of the paranasal sinuses are well aerated. Cervical spine: There is anatomic alignment of the vertebral bodies and posterior elements. The atlantoaxial and atlantooccipital articulations are intact. Vertebral body heights are maintained. There is multilevel intervertebral disc space narrowing with endplate osteophyte formation and facet arthropathy. No evidence of acute fracture. No prevertebral soft tissue swelling. Visualized portions of the lung apices are unremarkable. The thyroid gland is unremarkable. IMPRESSION: 1. No acute intracranial findings. 2. No acute fracture or malalignment of the cervical spine. Mild multilevel degenerative changes. DICTATED BY: Good Horton MD DATE/TIME DICTATED:09/26/17544 PEDIATRIC NP:RAJAN DATE/ TIME TRANSCRIBED:09/26/17544 CONFIDENTIAL, DO NOT COPY WITHOUT APPROPRIATE AUTHORIZATION. <Electronically signed in Other Vendor System> SIGNED BY: Good Horton MD 09/26/1750 CXR Impression: no acute abnormality, no infiltrates, normal size heart, normal mediastinum, PATIENT: TRAVIS PRYOR PRESENT AGE: 82 PATIENT ACCOUNT NO: [id number] : 35 LOCATION: [facility] ORDERING PHYSICIAN: Clint Perez MD SERVICE DATE: 09/26/17 EXAM TYPE: RAD - XRY- PORTABLE CHEST XRAY EXAMINATION: XR PORTABLE CHEST CLINICAL INFORMATION: Cough COMPARISON: 09/10/2017 TECHNIQUE: Portable frontal view of the chest was obtained. FINDINGS: Lung volumes are low. No consolidation, edema, or effusion. No pneumothorax. The cardiomediastinal silhouette is within normal limits. IMPRESSION: No acute pulmonary findings. DICTATED BY: Good Horton MD DATE /TIME DICTATED:09/26/17546 PEDIATRIC NP:RAJAN DATE/TIME TRANSCRIBED: 09/26/17546 CONFIDENTIAL, DO NOT COPY WITHOUT APPROPRIATE AUTHORIZATION. < Electronically signed in Other Vendor System> SIGNED BY: Good Horton MD 09/26/17 0551 Initial ED EKG: normal axis, normal intervals, normal p-waves, normal QRS complex, normal sinus rhythm Departure Departure Disposition: STILL A PATIENT Condition: Stable Clinical Impression Primary Impression: Dehydration Secondary Impressions: Acute renal failure, Weakness Referrals: Jeff Emery MD (PCP/Family) Departure Forms: Customer Survey General Discharge Information Observation Note Spoke With: Apergis MD,Yiannis Physician Advisor Notified: FORREST GALEAS DO Place Patient In: Non-ED OBS Care Area Rationale for Observation: My rational for observation is as follows . Pt with weakness, dehydration, acute renal failure... pt merits iv fluids, PT/ case management... u/a still pending. Critical Care Note Critical Care Note Critical Care Time: non-applicable
[2017-09-26 05:02] LABS: ABSOLUTE BASOPHIL COUNT 0 /CUMM (0.0-0.2); ABSOLUTE EOSINOPHIL COUNT 0 /CUMM (0.0-0.7); ABSOLUTE GRANULOCYTE CT 7.3 /CUMM (1.4-6.5); BASOPHIL % 0 % (0.0-2.0); EOSINOPHIL % 0.2 % (0-5); GRANULOCYTE % 78.5 % (42.2-75.2); HEMATOCRIT 36.5 % (42-52); MEAN CORPUSCULAR HGB 29.1 PG (27.0-31.0); MEAN CORPUSCULAR HGB CONC 32.4 G/DL (33.0-37.0); MEAN PLATELET VOLUME 8.8 FL (7.4-10.4); PLATELET COUNT 258 /CUMM (130-400); RBC DISTRIBUTION WIDTH 13.8 % (11.5-14.5); RED BLOOD CELL CT 4.06 /CUMM (4.70-6.10); WHITE BLOOD CELL COUNT 9.3 /CUMM (4.8-10.8)
--- NOTE | 2017-09-26 05:50 | CT SCAN REPORT ---
EXAMINATION: NONCONTRAST HEAD CT NONCONTRAST CERVICAL SPINE CT INDICATION INFORMATION: Fall. Mental status change. COMPARISON: 09/13/2017 TECHNIQUE: Separate noncontrast CT examinations of the head and cervical spine were performed. Coronal and sagittal images were created for each examination at the technologist workstation. DLP: 1164 mGy-cm FINDINGS: Head: There is no evidence of acute intracranial hemorrhage or territorial infarction. No abnormal mass effect or midline shift is seen. Gagnon to white matter differentiation is well preserved. No extra-axial fluid collections are identified. No hydrocephalus. Proportional prominence of the ventricles and sulcal spaces is consistent with mild volume loss. Patchy periventricular and deep white matter hypoattenuation is consistent with moderate small vessel ischemic changes. The osseous structures and soft tissues are normal. The mastoid air cells and visualized portions of the paranasal sinuses are well aerated. Cervical spine: There is anatomic alignment of the vertebral bodies and posterior elements. The atlantoaxial and atlantooccipital articulations are intact. Vertebral body heights are maintained. There is multilevel intervertebral disc space narrowing with endplate osteophyte formation and facet arthropathy. No evidence of acute fracture. No prevertebral soft tissue swelling. Visualized portions of the lung apices are unremarkable. The thyroid gland is unremarkable. IMPRESSION: 1. No acute intracranial findings. 2. No acute fracture or malalignment of the cervical spine. Mild multilevel degenerative changes.
--- NOTE | 2017-09-26 05:51 | RADIOLOGY REPORT ---
EXAMINATION: XR PORTABLE CHEST CLINICAL INFORMATION: Cough COMPARISON: 09/10/2017 TECHNIQUE: Portable frontal view of the chest was obtained. FINDINGS: Lung volumes are low. No consolidation, edema, or effusion. No pneumothorax. The cardiomediastinal silhouette is within normal limits. IMPRESSION: No acute pulmonary findings.
[2017-09-26 10:45] VITALS: BP 110/60
--- NOTE | 2017-09-26 10:59 | History & Physical ---
Artie Stafford 09/26/17 1059: General Information and HPI MD Statement: I have seen and personally examined TRAVIS PRYOR and documented this H&P. The patient is a 82 year old M who presented with a patient stated chief complaint of [weakness/fall]. Source of Information: patient, family, old records Exam Limitations: poor historian History of Present Illness: This is an 82-year-old man, HIV positive for 15 years, noncompliant with antiretroviral therapy until recently, with a recent CD4 count of 22, with a history of coronary artery disease, status post VA and stent, hypertension, hyperlipidemia, diabetes and BPH, was recently discharged from the hospital on August 2017 that was due to urinary tract infection, patient get laser TURP. This time patient presented with a chief complaint of generalized weakness, decreased oral intake, feeling weak tired and almost a fall down. Patient stated that he cannot eat anything due to nausea, vomiting and decreased appetite. His daughter stated that he didn't fall down as she and her around and they found him holding with the side of the bathroom and they helped him to deny any fall, trauma to head or trauma low back. He is currently using a diaper and according to his daughter his diaper was wet. Patient denied any chest pain, shortness of breath, wheezing, cough, headache, fever, chills, abdominal pain, diarrhea, constipation, hematuria, dysuria, weak stream, incomplete emptying his bladder. In the emergency department the patient received 2 IV fluid boluses. Head CT and C-spine done no signs of fracture or acute pathological process. Allergies/Medications Allergies: Coded Allergies: No Known Allergies (08/26/17) Home Med list Ammonium Lactate 12 % LOTION 1 DILLAN TOP BID SKIN (Reported) Aspirin (Ecotrin*) 81 MG TABLET.DR 1 TAB PO DAILY HEART HEALTH (Reported) Azithromycin 600 MG TABLET 2 TAB PO QSUN ANTIBIOTIC (Reported) Clopidogrel Bisulfate (Clopidogrel) 75 MG TABLET 1 TAB PO DAILY HEART HEALTH (Reported) Darunavir/Cobicistat (Prezcobix 800 MG-150 MG Tablet) 800 MG-150 MG TABLET 1 TAB PO DAILY HIV (Reported) Desonide (Desowen) 0.05 % CREAM..G. 1 DILLAN TOP BID SKIN (Reported) apply to affected area(s) Diclofenac Sodium (Voltaren) 1 % GEL..GRAM. 1 DILLAN TOP BID PRN PAIN (Reported) apply to affected area(s) Dolutegravir Sodium (Tivicay) 50 MG TABLET 1 TAB PO DAILY HIV (Reported) Escitalopram Oxalate 10 MG TABLET 1 TAB PO DAILY DEPRESSION (Reported) Hydrochlorothiazide 12.5 MG CAPSULE 1 CAP PO DAILY HEART HEALTH (Reported) Insulin Glargine,Hum.rec.anlog (Toujeo Solostar) 300 UNIT/ML (1.5 ML) INSULN.PEN 40 UNIT SC DAILY DM (Reported) Metoprolol Succinate 25 MG TAB 1 TAB PO DAILY HEART HEALTH (Reported) Nut.tx.gluc.intoler,Lac-Fr,Soy (Glucerna) (Unknown Strength) LIQUID 1 BOT PO BID NUTRITIONAL SUPPLEMENT (Reported) Pantoprazole Sodium 40 MG TABLET.DR 1 TAB PO DAILY HEART HEALTH (Reported) Pentoxifylline 400 MG TABLET.ER 1 TAB PO DAILY UNKNOWN (Reported) Pravastatin Sodium 10 MG TABLET 1 TAB PO DAILY HEART HEALTH (Reported) Sitagliptin Phos/Metformin HCl (Janumet 50-1,000 MG Tablet) 50 MG-1,000 MG TABLET 1 TAB PO BID DM (Reported) Sulfamethoxazole/Trimethoprim (Sulfamethoxazole-Tmp Ds Tablet) 800 MG-160 MG TABLET 1 TAB PO Thursday ABT (Reported) Tamsulosin HCl 0.4 MG CAP.ER.24H 1 CAP PO DAILY ENLARGED PROSTATE (Reported) Valacyclovir HCl (Valacyclovir) 1,000 MG TABLET 1 TAB PO DAILY ANTIVIRAL ( Reported) Zolpidem Tartrate 10 MG TABLET 1 TAB PO QPMP SLEEP AIDE (Reported) Past History Travel History Traveled to [place] past 21 day No Medical History Blood Transfusion Hx: No Neurological: NONE EENT: glaucoma Cardiovascular: CAD (s/p stent), hypertension, myocardial infarction Respiratory: NONE Gastrointestinal: GERD Hepatic: NONE Renal: benign prost hyperplasia Musculoskeletal: NONE Psychiatric: depression Endocrine: diabetes Blood Disorders: HIV Cancer(s): 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 Home Services at Home: Home Health Aide, Occupational Therapy, Physical Therapy Smoking Status: Never Smoked Review of Systems Review of Systems Constitutional: Reports: see HPI. Cardiovascular: Reports: see HPI. Respiratory: Reports: see HPI. GI: Reports: see HPI. Genitourinary: Reports: see HPI. Exam & Diagnostic Data Last 24 Hrs of Vital Signs/I&O Vital Signs Date Time Temp Pulse Resp B/P B/P Pulse O2 O2 Flow FiO2 Mean Ox Delivery Rate 09/26 1500 98.0 97 20 110/60 95 Room Air 09/26 1045 98.1 66 20 110/60 96 Room Air 09/26 1028 Room Air Room Air 09/26 0930 97.8 66 20 114/60 96 Room Air 09/26 0618 98.4 80 18 112/59 96 Room Air 09/26 0436 98.6 96 22 133/68 97 Room Air Intake & Output 09/26 1600 09/26 0800 09/26 0000 Intake Total 880 1000 Output Total 200 Balance 680 1000 Intake, IV 0 1000 Intake, Oral 880 0 Number 0 Bowel Movements Output, Urine 200 Patient 165 lb Weight Weight Reported by Patient Measurement Method Physical Exam General Appearance Alert, Oriented X3, Cooperative Skin Temp/Moisture Exam: Warm/Dry HEENT PERRLA, EOMI Neck Supple Cardiovascular Normal S1, Normal S2 Lungs Normal Air Movement Abdomen Normal Bowel Sounds, Soft, No Tenderness Extremities No Cyanosis Last 24 Hrs of Labs/Lam: Laboratory Tests 09/26/17 0856: Urinalysis MOD H, Urine Color YEL, Urine Clarity HAZY H, Urine pH 5.5, Ur Specific [place] >= 1.030, Urine Protein 100 H, Urine Ketones NEG, Urine Nitrite NEG, Urine Bilirubin NEG, Urine Urobilinogen 0.2, Ur Leukocyte Esterase SMALL H, Ur Microscopic SEDIMENT EXAMINED, Urine RBC >75 H, Urine WBC 50-75 H , Ur Epithelial Cells FEW, Urine Bacteria MOD H, Hyaline Casts 1-3 H, Granular Casts FEW H, Urine Mucus FEW, Urine Hemoglobin LARGE H, Urine Glucose NEG 09/26/17 0450: Anion Gap 16, Estimated GFR 45 L, BUN/Creatinine Ratio 14.7, Glucose 152 H, Calcium 9.1, Total Bilirubin 1.2, Direct Bilirubin 0.4, AST 19, ALT 23, Alkaline Phosphatase 104, Troponin I < 0.01, Total Protein 7.3, Albumin 3.7, Amylase 67, Lipase 72, CBC w Diff NO MAN DIFF REQ, RBC 4.06 L, MCV 90.0, MCH 29.1, RDW 13.8 , MPV 8.8, Gran % 78.5 H, Lymphocytes % 10.6 L, Monocytes % 10.7 H, Eosinophils % 0.2, Basophils % 0, Absolute Granulocytes 7.3 H, Absolute Lymphocytes 1.0 L, Absolute Monocytes 1.0 H, Absolute Eosinophils 0, Absolute Basophils 0, PUBS MCHC 32.4 L Microbiology 09/26 0856 URINE ROUT: Urine Culture - RECD Diagnostic Data CXR Results EXAMINATION: XR PORTABLE CHEST CLINICAL INFORMATION: Cough COMPARISON: 09/10/2017 TECHNIQUE: Portable frontal view of the chest was obtained. FINDINGS: Lung volumes are low. No consolidation, edema, or effusion. No pneumothorax. The cardiomediastinal silhouette is within normal limits. IMPRESSION: No acute pulmonary findings. Other Results EXAMINATION: NONCONTRAST HEAD CT NONCONTRAST CERVICAL SPINE CT INDICATION INFORMATION: Fall. Mental status change. COMPARISON: 09/13/2017 TECHNIQUE: Separate noncontrast CT examinations of the head and cervical spine were performed. Coronal and sagittal images were created for each examination at the technologist workstation. DLP: 1164 mGy-cm FINDINGS: Head: There is no evidence of acute intracranial hemorrhage or territorial infarction. No abnormal mass effect or midline shift is seen. Gagnon to white matter differentiation is well preserved. No extra-axial fluid collections are identified. No hydrocephalus. Proportional prominence of the ventricles and sulcal spaces is consistent with mild volume loss. Patchy periventricular and deep white matter hypoattenuation is consistent with moderate small vessel ischemic changes. The osseous structures and soft tissues are normal. The mastoid air cells and visualized portions of the paranasal sinuses are well aerated. Cervical spine: There is anatomic alignment of the vertebral bodies and posterior elements. The atlantoaxial and atlantooccipital articulations are intact. Vertebral body heights are maintained. There is multilevel intervertebral disc space narrowing with endplate osteophyte formation and facet arthropathy. No evidence of acute fracture. No prevertebral soft tissue swelling. Visualized portions of the lung apices are unremarkable. The thyroid gland is unremarkable. IMPRESSION: 1. No acute intracranial findings. 2. No acute fracture or malalignment of the cervical spine. Mild multilevel degenerative changes. Assessment/Plan Assessment: This is an 82-year-old man, HIV positive for 15 years, noncompliant with antiretroviral therapy until recently, with a recent CD4 count of 22, with a history of coronary artery disease, status post VA and stent, hypertension, hyperlipidemia, diabetes and BPH, was recently discharged from the hospital on August 2017 that was due to urinary tract infection, patient get laser TURP. This time patient presented with a chief complaint of generalized weakness, decreased oral intake, feeling weak tired and almost a fall down. Problem list: -Generalized weakness -Acute kidney injury -HIV Plan: -Admit patient to general medicine floor -Vitals every shift -Encourage oral intake/patient received 2 IV boluses in ED -IV Zofran for nausea and vomiting as needed -Recheck basic electrolyte and CBC in a.m. -Physical therapy consultation -Urine culture -Post void bladder scan to rule out obstruction -Continue home medication - As Ranked By This Provider Problem List: 1. Weakness 2. Hematuria Core Measures/Misc (05/31) Acute Coronary Syndrome ACS Diagnosis: No Congestive Heart Failure Congestive Heart Failure Diagnosis No Cerebrovascular Accident CVA/TIA Diagnosis: No VTE (View Protocol) VTE Risk Factors Age>40 No Mechanical VTE Prophylaxis d/t N/A MechProphylax Ordered No VTE Pharm Prophylaxis d/t Bleeding (Active) Sepsis (View protocol) Sepsis Present: Yes Nathaly Quintana MD 09/26/17 1554: Attending MD Review Statement Attending Statement Attending MD Statement: examined this patient, discuss w/resident/PA/[employer], agreed w/resident/PA/[employer], reviewed EMR data (avail) Attending Assessment/Plan: 82M PMH HIV positive for 15 years, noncompliant with antiretroviral therapy until recently, with a recent CD4 count of 22, h/ CAD s/p VA and stent, HTN, HLD , T2DM, BPH s/p recent TURP brought in by family for decreased PO intake, generalized weakness, lethargy, and unable to care for self. Had been diagnosed with UTI during last hospital stay treated with Ceftriaxone. He returns and is very weak today, lethargic, gives minimal history, daughter not at bedside. Exam benign, labs show normal WBC, ORTIZ with creatinine 1.5, and UA suggestive of hematuria and possible UTI. AFVSS. 1. ORTIZ 2. UTI 3. Generalized weakness 4. HIV Plan - Observation in general medicine - Gentle IV hydration - Monitor renal function - Urine culture - ID consult if febrile or if positive culture - Continue home medications including ART - PT eval - DVT PPx
[2017-09-26 15:00] VITALS: BP 110/60
[2017-09-26 22:21] VITALS: BP 112/60
[2017-09-27 08:23] LABS: ABSOLUTE BASOPHIL COUNT 0.1 /CUMM (0.0-0.2); ABSOLUTE EOSINOPHIL COUNT 0 /CUMM (0.0-0.7); ABSOLUTE GRANULOCYTE CT 5.2 /CUMM (1.4-6.5); ABSOLUTE LYMPH COUNT 0.8 /CUMM (1.2-3.4); ABSOLUTE MONOCYTE COUNT 0.9 /CUMM (0.10-0.60); BASOPHIL % 0.9 % (0.0-2.0); EOSINOPHIL % 0.3 % (0-5); GRANULOCYTE % 74.2 % (42.2-75.2); HEMATOCRIT 34.7 % (42-52); MEAN CORPUSCULAR HGB 29.7 PG (27.0-31.0); MEAN CORPUSCULAR HGB CONC 33.5 G/DL (33.0-37.0); MEAN CORPUSCULAR VOLUME 88.6 FL (80.0-94.0); MEAN PLATELET VOLUME 9.2 FL (7.4-10.4); PLATELET COUNT 191 /CUMM (130-400); RBC DISTRIBUTION WIDTH 13.2 % (11.5-14.5); RED BLOOD CELL CT 3.91 /CUMM (4.70-6.10)
--- NOTE | 2017-09-27 09:58 | PN- Housestaff ---
Marcus BRAVO,[facility] 09/27/17 0957: Subjective Follow-up For: weakness Subjective: Patient state he feels sick. Compalins of neck pain. Review of Systems Constitutional: Reports: see HPI, malaise, weakness. Cardiovascular: Reports: no symptoms. Respiratory: Reports: no symptoms. Gastrointestinal: Reports: no symptoms. Genitourinary: Reports: see HPI. Musculoskeletal: Reports: no symptoms. Objective Last 24 Hrs of Vital Signs/I&O Vital Signs Date Time Temp Pulse Resp B/P B/P Pulse O2 O2 Flow FiO2 Mean Ox Delivery Rate 09/27 2143 98.1 69 19 108/56 97 Room Air 09/27 1344 100.8 09/27 1318 100.8 94 21 138/76 97 Room Air 09/27 1037 80 152/90 Intake & Output 09/27 1600 09/27 0800 09/27 0000 Intake Total 600 Output Total 550 300 Balance 600 -550 -300 Intake, Oral 600 Number 2 2 Bowel Movements Output, Urine 550 300 Physical Exam General Appearance: Alert, Oriented X3, Cooperative, Mild Distress Cardiovascular: Regular Rate, Normal S1, Normal S2 Lungs: Clear to Auscultation, Normal Air Movement Abdomen: Normal Bowel Sounds, Soft, No Tenderness Extremities: 2+ radial pulse Other Physical Findings: dark urine in urinal Current Medications: Current Medications Sig/Juma Start time Last Medication Dose Route Stop Time Status Admin Acetaminophen 650 MG ONCE ONE 09/27 1245 DC 09/27 PO 09/27 1246 1344 Acetaminophen 650 MG Q6P PRN 09/26 1145 AC PO Aspirin Buffered 81 MG DAILY 09/26 1138 AC 09/27 PO 1042 Azithromycin 1,200 MG Wilkerson@1000 09/27 1000 AC 09/27 PO 1029 Clopidogrel Bisulfate 75 MG DAILY 09/26 1140 AC 09/27 PO 1038 Diclofenac Sodium 1 DILLAN BID PRN 09/26 2200 AC TOP Escitalopram Oxalate 10 MG DAILY 09/26 1140 AC 09/27 PO 1038 Heparin Sodium 5,000 UNIT Q8 09/26 1400 AC 09/27 (Porcine) SC 2048 Hydrocodone Bitart/ 1 TAB Q8P PRN 09/26 1145 AC Acetaminophen PO Insulin Aspart 0 TIDAC 09/27 1200 CAN SC Insulin Aspart 0 TIDAC 09/26 1200 AC 09/27 IN 1344 Insulin Detemir 30 UNITS DAILY 09/26 1141 AC 09/27 SC 1045 Metoprolol Succinate 25 MG DAILY 09/26 1142 AC 09/27 PO 1037 Omeprazole 40 MG DAILY AC 09/27 0700 AC 09/27 PO 0552 Ondansetron HCl 4 MG Q12P PRN 09/26 1215 AC IV Oxycodone HCl 5 MG Q6P PRN 09/26 1145 AC PO Pravastatin Sodium 10 MG DAILY 09/26 1141 AC 09/27 PO 1042 Tamsulosin HCl 0.4 MG DAILY 09/26 1141 AC 09/27 PO 1039 Trimethoprim/ 1 TAB 09/28 1000 AC Sulfamethoxazole PO 09/29 0959 Valacyclovir HCl 1,000 MG DAILY 09/27 1000 AC 09/27 PO 1033 Zolpidem Tartrate 10 MG QPM PRN 09/26 1145 AC PO Last 24 Hrs of Lab/Lam Results Last 24 Hrs of Labs/Mics: Laboratory Tests 09/27/17 0713: Anion Gap 14, Estimated GFR 58 L, BUN/Creatinine Ratio 17.5, CBC w Diff NO MAN DIFF REQ, RBC 3.91 L, MCV 88.6, MCH 29.7, RDW 13.2, MPV 9.2, Gran % 74.2, Lymphocytes % 12.0 L, Monocytes % 12.6 H, Eosinophils % 0.3, Basophils % 0.9, Absolute Granulocytes 5.2, Absolute Lymphocytes 0.8 L, Absolute Monocytes 0.9 H, Absolute Eosinophils 0, Absolute Basophils 0.1, PUBS MCHC 33.5 Microbiology 09/27 1245 URINE ROUT: Urine Culture - ORD Assessment/Plan Assessment: Assessment: This is an 82-year-old man, HIV positive for 15 years, noncompliant with antiretroviral therapy until recently, with a recent CD4 count of 22, with a history of coronary artery disease, status post [place] and stent, hypertension, hyperlipidemia, diabetes and BPH, was recently discharged from the hospital on August 2017 that was due to urinary tract infection and received a laser TURP presenting for generalized weakness, decreased oral intake, feeling weak tired and almost a fall down. Plan: #Generalized weakness Recently discharged for treatment of UTI UA: showing small LE Tmax 100.8 this afternoon and no white count during admission Ucx negative thus far -cont bactrim, flomax, -zofran prn #continued hematuria UA+ for blood recent TURP -f/u urology consult #ORTIZ Cr 1.5 upon admission (1.0 baseline) 1.2 today -cont to monitor #Mild hyper K nad low Na K 5.3 Na 136 -cont to monitor #diabtes -levemir -novolog sliding scale #HIV -cont valcyclovir, azithromycin, #hx of [place] and stent -metropolol, pravastatin, placix, aspirin #home meds -omeprazole, diclofenac gel, zolpidem, pravastain, escitalopram Problem List: 1. Weakness 2. Hematuria Pain Ratin Pain Location: none Pain Goal: Pain 4 or less Pain Plan: pain pathway Tomorrow's Labs & Rationales: cbc bep Nathaly Quintana MD 09/27/17 1605: Attending MD Review Statement Attending Statement Attending MD Statement: examined this patient, discuss w/resident/PA/LITERACY EDUCATION PROFESSOR, agreed w/resident/PA/LITERACY EDUCATION PROFESSOR, reviewed EMR data (avail) Attending Assessment/Plan: 82M PMH HIV positive for 15 years, noncompliant with antiretroviral therapy until recently, with a recent CD4 count of 22, h/ CAD s/p [place] and stent, HTN, HLD , T2DM, BPH s/p recent TURP brought in by family for decreased PO intake, generalized weakness, lethargy, and unable to care for self. Had been diagnosed with UTI during last hospital stay treated with Ceftriaxone. He returns and is very weak today, lethargic, gives minimal history, daughter not at bedside. Exam benign, labs show normal WBC, ORTIZ with creatinine 1.5, and UA suggestive of hematuria and possible UTI. Today has no pain, but eneida blood from urethral meatus. He is otherwise well. Renal function improving. 1. ORTIZ 2. UTI 3. Generalized weakness 4. HIV Plan - Observation in general medicine - Urology consult tomorrow - Gentle IV hydration - Monitor renal function - Urine culture - ID consult if febrile or if positive culture - Continue home medications including ART - PT eval - DVT PPx
[2017-09-27 13:18] VITALS: BP 138/76
[2017-09-27 21:43] VITALS: BP 108/56
[2017-09-28 06:33] VITALS: BP 124/66
--- NOTE | 2017-09-28 07:35 | PN- Housestaff ---
Marcus BRAVO,[facility] 09/28/17 0735: Subjective Follow-up For: weakness fatigue Subjective: No acute events overnight. Pt still not feeling well. Feeling tired. Has some burning with urination and states red/dark urine. Review of Systems Constitutional: Reports: see HPI, malaise, weakness. Cardiovascular: Reports: no symptoms. Respiratory: Reports: no symptoms. Gastrointestinal: Reports: no symptoms. Genitourinary: Reports: see HPI (dark urine), dysuria. Objective Last 24 Hrs of Vital Signs/I&O Vital Signs Date Time Temp Pulse Resp B/P B/P Pulse O2 O2 Flow FiO2 Mean Ox Delivery Rate 09/28 2121 100.4 67 18 114/64 95 Room Air 09/28 1330 98.7 74 18 140/56 97 Room Air 09/28 0859 68 124/66 09/28 0633 99.1 68 20 124/66 96 Intake & Output 09/28 1600 09/28 0800 09/28 0000 Intake Total 1250 615 240 Output Total 300 25 Balance 950 590 240 Intake, IV 600 375 Intake, Oral 650 240 240 Number 1 1 Bowel Movements Output, Urine 300 25 Physical Exam General Appearance: Alert, Cooperative, fatigued Skin Temp/Moisture Exam: Warm/Dry Cardiovascular: Regular Rate, Normal S1, Normal S2 Lungs: Clear to Auscultation, Normal Air Movement Abdomen: Normal Bowel Sounds, Soft, No Tenderness Extremities: 2+ radial pulses Other Physical Findings: dark/red urine most likely hematuria Current Medications: Current Medications Sig/Juma Start time Last Medication Dose Route Stop Time Status Admin Acetaminophen 650 MG Q6P PRN 09/26 1145 AC PO Aspirin Buffered 81 MG DAILY 09/26 1138 AC 09/28 PO 0859 Azithromycin 1,200 MG Wilkerson@1000 09/27 1000 AC 09/27 PO 1029 Ceftriaxone Sodium 1,000 MG Q24H 09/28 2000 AC IV Clopidogrel Bisulfate 75 MG DAILY 09/26 1140 AC 09/28 PO 0900 Dextrose/Water 1,000 ML Q13H 09/28 0100 DC 09/28 IV 0101 Diclofenac Sodium 1 DILLAN BID PRN 09/26 2200 AC TOP Escitalopram Oxalate 10 MG DAILY 09/26 1140 AC 09/28 PO 0900 Heparin Sodium 5,000 UNIT Q8 09/26 1400 AC 09/28 (Porcine) SC 1334 Hydrocodone Bitart/ 1 TAB Q8P PRN 09/26 1145 AC Acetaminophen PO Insulin Aspart 0 TIDAC 09/26 1200 AC 09/28 SC 1330 Insulin Detemir 30 UNITS DAILY 09/26 1141 AC 09/28 SC 0901 Metoprolol Succinate 25 MG DAILY 09/26 1142 AC 09/28 PO 0859 Omeprazole 40 MG DAILY AC 09/27 0700 AC 09/28 PO 0508 Ondansetron HCl 4 MG Q12P PRN 09/26 1215 AC IV Oxycodone HCl 5 MG Q6P PRN 09/26 1145 AC PO Patient Medication 1 ED ONE ONE 09/28 1330 DC Teaching ED 09/28 1331 Pravastatin Sodium 10 MG DAILY 09/26 1141 AC 09/28 PO 0900 Tamsulosin HCl 0.4 MG DAILY 09/26 1141 AC 09/28 PO 0859 Trimethoprim/ 1 TAB 09/28 1000 AC 09/28 Sulfamethoxazole PO 09/29 0959 0900 Valacyclovir HCl 1,000 MG DAILY 09/27 1000 AC 09/28 PO 0859 Zolpidem Tartrate 10 MG QPM PRN 09/26 1145 AC PO Last 24 Hrs of Lab/Lam Results Last 24 Hrs of Labs/Mics: Laboratory Tests 09/28/17 0840: Urinalysis LIGHT H, Urine Color PINK H, Urine Clarity HAZY H, Urine pH 6.0, Ur Specific [place] 1.025, Urine Protein 30 H, Urine Ketones NEG, Urine Nitrite NEG, Urine Bilirubin NEG, Urine Urobilinogen 0.2, Ur Leukocyte Esterase MOD H, Ur Microscopic SEDIMENT EXAMINED, Urine RBC PACKD H, Urine WBC PACKD H, Urine Bacteria MANY H, Urine Hemoglobin LARGE H, Urine Glucose NEG 09/28/17 0733: Anion Gap 14, Estimated GFR 53 L, BUN/Creatinine Ratio 16.2, CBC w Diff NO MAN DIFF REQ, RBC 3.67 L, MCV 89.2, MCH 29.5, RDW 13.6, MPV 9.8, Gran % 67.3, Lymphocytes % 17.2 L, Monocytes % 15.0 H, Eosinophils % 0.2, Basophils % 0.3, Absolute Granulocytes 4.0, Absolute Lymphocytes 1.0 L, Absolute Monocytes 0.9 H, Absolute Eosinophils 0, Absolute Basophils 0, PUBS MCHC 33.1 Microbiology 09/28 0840 URINE ROUT: Urine Culture - RECD Assessment/Plan Assessment: Assessment: This is an 82-year-old man, HIV positive for 15 years, noncompliant with antiretroviral therapy until recently, with a recent CD4 count of 22, with a history of coronary artery disease, status post [place] and stent, hypertension, hyperlipidemia, diabetes and BPH, was recently discharged from the hospital on August 2017 that was due to urinary tract infection and received a laser TURP presenting for generalized weakness, decreased oral intake, feeling weak tired and almost a fall down. Plan: #Generalized weakness Recently discharged for treatment of UTI annd TURP UA: showing small LE but urine culture negative Tmax 100.8 yesterday afternoon and no white count during admission Ucx negative thus far -Empiric CTX 1 gm daily -trend cbc, bmp -cont flomax, -zofran prn #continued hematuria UA+ for blood recent TURP -f/u urology consult #ORTIZ Cr 1.5 upon admission (1.0 baseline) 1.3 today -cont to monitor #Mild hyper K nad low Na - resolved K 5.3 -> 4.4 Na 136 -> 138 -cont to monitor #diabtes -levemir -novolog sliding scale #HIV -cont valcyclovir, azithromycin, #hx of [place] and stent -metropolol, pravastatin, placix, aspirin #home meds -omeprazole, diclofenac gel, zolpidem, pravastain, escitalopram #DVT prophylaxis -heparin #FULL CODE Problem List: 1. Weakness 2. Hematuria Pain Ratin Pain Location: urination Pain Goal: Pain 4 or less Pain Plan: pain pathway Tomorrow's Labs & Rationales: cbc bep Angela Morrison 09/28/17 1359: Attending MD Review Statement Attending Statement Attending MD Statement: examined this patient, discuss w/resident/PA/FOOD PROCESSING PLANT MANAGER, agreed w/resident/PA/FOOD PROCESSING PLANT MANAGER, discussed with family, reviewed EMR data (avail), discussed with nursing, discussed with case mgmt, reviewed images, amended to note Attending Assessment/Plan: 82M PMH HIV positive for 15 years, noncompliant with antiretroviral therapy until recently, with a recent CD4 count of 22, h/ CAD s/p [place] and stent, HTN, HLD , T2DM, BPH s/p recent TURP brought in by family for decreased PO intake, generalized weakness, lethargy, and unable to care for self. Had been diagnosed with UTI during last hospital stay treated with Ceftriaxone. Exam benign, labs show normal WBC, ORTIZ with creatinine 1.5 and Renal function improving. Denies nausea, vomiting. 1. ORTIZ 2. Hematuria 3. Generalized weakness 4. HIV Plan - F/U urology. - Monitor renal function - Urine culture final c/s. - ID consulted and recommend observe for fevers and if spike start iv ceftriaxone. - Continue home medications including ART - PT eval - DVT PPx
[2017-09-28 08:41] LABS: ABSOLUTE BASOPHIL COUNT 0 /CUMM (0.0-0.2); ABSOLUTE EOSINOPHIL COUNT 0 /CUMM (0.0-0.7); ABSOLUTE MONOCYTE COUNT 0.9 /CUMM (0.10-0.60); BASOPHIL % 0.3 % (0.0-2.0); EOSINOPHIL % 0.2 % (0-5); GRANULOCYTE % 67.3 % (42.2-75.2); HEMATOCRIT 32.8 % (42-52); MEAN CORPUSCULAR HGB 29.5 PG (27.0-31.0); MEAN CORPUSCULAR HGB CONC 33.1 G/DL (33.0-37.0); MEAN CORPUSCULAR VOLUME 89.2 FL (80.0-94.0); MEAN PLATELET VOLUME 9.8 FL (7.4-10.4); PLATELET COUNT 176 /CUMM (130-400); RBC DISTRIBUTION WIDTH 13.6 % (11.5-14.5); RED BLOOD CELL CT 3.67 /CUMM (4.70-6.10); WHITE BLOOD CELL COUNT 5.9 /CUMM (4.8-10.8)
[2017-09-28 13:30] VITALS: BP 140/56
--- NOTE | 2017-09-28 19:02 | Cons- Infect Disease ---
General Information and HPI Consulting Request Date of Consult: 09/28/17 Requested By: Angela Morrison MD Reason for Consult: abx advice Source of Information: patient Exam Limitations: clinical condition History of Present Illness: 82-year-old man, HIV positive for 15 years, noncompliant with antiretroviral therapy, last CD4 count of 22, with a history of coronary artery disease, status post [place] and stent, hypertension, hyperlipidemia, diabetes and BPH, recent admission for urinary tract infection/urinary retention s/p laser TURP presented to the ED again on 09/26/17, c/o generalized weakness, decreased oral intake, and weight loss (per patient about 20 lbs in 1 year). On admission he denied chest pain, shortness of breath, wheezing, cough, headache, fever, chills, or abdominal pain. At times he reports loose stools; incontinent urine. In the emergency department the patient received 2 IV fluid boluses. Remains afebrile. Still feeling fatigued. Now c/o burning when voiding. Allergies/Medications Allergies: Coded Allergies: No Known Allergies (08/26/17) Home Med List: Ammonium Lactate 12 % LOTION 1 DILLAN TOP BID SKIN (Reported) Aspirin (Ecotrin*) 81 MG TABLET.DR 1 TAB PO DAILY HEART HEALTH (Reported) Azithromycin 600 MG TABLET 2 TAB PO QSUN ANTIBIOTIC (Reported) Clopidogrel Bisulfate (Clopidogrel) 75 MG TABLET 1 TAB PO DAILY HEART HEALTH (Reported) Darunavir/Cobicistat (Prezcobix 800 MG-150 MG Tablet) 800 MG-150 MG TABLET 1 TAB PO DAILY HIV (Reported) Desonide (Desowen) 0.05 % CREAM..G. 1 DILLAN TOP BID SKIN (Reported) apply to affected area(s) Diclofenac Sodium (Voltaren) 1 % GEL..GRAM. 1 DILLAN TOP BID PRN PAIN (Reported) apply to affected area(s) Dolutegravir Sodium (Tivicay) 50 MG TABLET 1 TAB PO DAILY HIV (Reported) Escitalopram Oxalate 10 MG TABLET 1 TAB PO DAILY DEPRESSION (Reported) Hydrochlorothiazide 12.5 MG CAPSULE 1 CAP PO DAILY HEART HEALTH (Reported) Insulin Glargine,Hum.rec.anlog (Toujeo Solostar) 300 UNIT/ML (1.5 ML) INSULN.PEN 40 UNIT SC DAILY DM (Reported) Metoprolol Succinate 25 MG TAB 1 TAB PO DAILY HEART HEALTH (Reported) Nut.tx.gluc.intoler,Lac-Fr,Soy (Glucerna) (Unknown Strength) LIQUID 1 BOT PO BID NUTRITIONAL SUPPLEMENT (Reported) Pantoprazole Sodium 40 MG TABLET.DR 1 TAB PO DAILY HEART HEALTH (Reported) Pentoxifylline 400 MG TABLET.ER 1 TAB PO DAILY UNKNOWN (Reported) Pravastatin Sodium 10 MG TABLET 1 TAB PO DAILY HEART HEALTH (Reported) Sitagliptin Phos/Metformin HCl (Janumet 50-1,000 MG Tablet) 50 MG-1,000 MG TABLET 1 TAB PO BID DM (Reported) Sulfamethoxazole/Trimethoprim (Sulfamethoxazole-Tmp Ds Tablet) 800 MG-160 MG TABLET 1 TAB PO Thursday ABT (Reported) Tamsulosin HCl 0.4 MG CAP.ER.24H 1 CAP PO DAILY ENLARGED PROSTATE (Reported) Valacyclovir HCl (Valacyclovir) 1,000 MG TABLET 1 TAB PO DAILY ANTIVIRAL ( Reported) Zolpidem Tartrate 10 MG TABLET 1 TAB PO QPMP SLEEP AIDE (Reported) Current Medications: Current Medications Sig/Juma Start time Last Medication Dose Route Stop Time Status Admin Acetaminophen 650 MG Q6P PRN 09/26 1145 AC PO Aspirin Buffered 81 MG DAILY 09/26 1138 AC 09/28 PO 0859 Azithromycin 1,200 MG Wilkerson@1000 09/27 1000 AC 09/27 PO 1029 Clopidogrel Bisulfate 75 MG DAILY 09/26 1140 AC 09/28 PO 0900 Dextrose/Water 1,000 ML Q13H 09/28 0100 DC 09/28 IV 0101 Diclofenac Sodium 1 DILLAN BID PRN 09/26 2200 AC TOP Escitalopram Oxalate 10 MG DAILY 09/26 1140 AC 09/28 PO 0900 Heparin Sodium 5,000 UNIT Q8 09/26 1400 AC 09/28 (Porcine) SC 1334 Hydrocodone Bitart/ 1 TAB Q8P PRN 09/26 1145 AC Acetaminophen PO Insulin Aspart 0 TIDAC 09/26 1200 AC 09/28 SC 1330 Insulin Detemir 30 UNITS DAILY 09/26 1141 AC 09/28 SC 0901 Metoprolol Succinate 25 MG DAILY 09/26 1142 AC 09/28 PO 0859 Omeprazole 40 MG DAILY AC 09/27 0700 AC 09/28 PO 0508 Ondansetron HCl 4 MG Q12P PRN 09/26 1215 AC IV Oxycodone HCl 5 MG Q6P PRN 09/26 1145 AC PO Patient Medication 1 ED ONE ONE 09/28 1330 DC Teaching ED 09/28 1331 Pravastatin Sodium 10 MG DAILY 09/26 1141 AC 09/28 PO 0900 Tamsulosin HCl 0.4 MG DAILY 09/26 1141 AC 09/28 PO 0859 Trimethoprim/ 1 TAB 09/28 1000 AC 09/28 Sulfamethoxazole PO 09/29 0959 0900 Valacyclovir HCl 1,000 MG DAILY 09/27 1000 AC 09/28 PO 0859 Zolpidem Tartrate 10 MG QPM PRN 09/26 1145 AC PO Past History Travel History Traveled to [place] past 21 day No Medical History Blood Transfusion Hx: No Neurological: NONE EENT: glaucoma Cardiovascular: CAD (s/p stent), hypertension, myocardial infarction Respiratory: NONE Gastrointestinal: GERD Hepatic: NONE Renal: benign prost hyperplasia Musculoskeletal: NONE Psychiatric: depression Endocrine: diabetes Blood Disorders: HIV Cancer(s): NONE 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 Home Services at Home: Home Health Aide, Occupational Therapy, Physical Therapy Smoking Status: Never Smoked Review of Systems Comments 12 points reviewed as noted, otherwise negative. Exam & Diagnostic Data Last 24 Hrs of Vital Signs/I&O Vital Signs Date Time Temp Pulse Resp B/P B/P Pulse O2 O2 Flow FiO2 Mean Ox Delivery Rate 09/28 1330 98.7 74 18 140/56 97 Room Air 09/28 0859 68 124/66 09/28 0633 99.1 68 20 124/66 96 09/27 2143 98.1 69 19 108/56 97 Room Air Intake & Output 09/28 1600 09/28 0800 09/28 0000 Intake Total 1250 615 240 Output Total 300 25 Balance 950 590 240 Intake, IV 600 375 Intake, Oral 650 240 240 Number 1 1 Bowel Movements Output, Urine 300 25 Physical Exam Other Physical Findings: General Appearance Alert, Oriented X3, Cooperative Skin Temp/Moisture Exam: Warm/Dry HEENT PERRLA, EOMI Neck Supple Cardiovascular Normal S1, Normal S2, no murmur Lungs Normal Air Movement Abdomen Normal Bowel Sounds, Soft, No Tenderness Extremities No Cyanosis Last 24 Hours of Lab Results: Laboratory Tests 09/28 09/28 0840 0733 Chemistry Sodium (137 - 145 mmol/L) 138 Potassium (3.5 - 5.1 mmol/L) 4.4 Chloride (98 - 107 mmol/L) 101 Carbon Dioxide (22 - 30 mmol/L) 23 Anion Gap (5 - 16) 14 BUN (9 - 20 mg/dL) 21 H Creatinine (0.7 - 1.2 mg/dL) 1.3 H Estimated GFR (>60 ml/min) 53 L BUN/Creatinine Ratio (7 - 25 %) 16.2 Hematology CBC w Diff NO MAN DIFF REQ WBC (4.8 - 10.8 /CUMM) 5.9 RBC (4.70 - 6.10 /CUMM) 3.67 L Hgb (14.0 - 18.0 G/DL) 10.8 L Hct (42 - 52 %) 32.8 L MCV (80.0 - 94.0 FL) 89.2 MCH (27.0 - 31.0 PG) 29.5 RDW (11.5 - 14.5 %) 13.6 Plt Count (130 - 400 /CUMM) 176 MPV (7.4 - 10.4 FL) 9.8 Gran % (42.2 - 75.2 %) 67.3 Lymphocytes % (20.5 - 51.1 %) 17.2 L Monocytes % (1.7 - 9.3 %) 15.0 H Eosinophils % (0 - 5 %) 0.2 Basophils % (0.0 - 2.0 %) 0.3 Absolute Granulocytes (1.4 - 6.5 /CUMM) 4.0 Absolute Lymphocytes (1.2 - 3.4 /CUMM) 1.0 L Absolute Monocytes (0.10 - 0.60 /CUMM) 0.9 H Absolute Eosinophils (0.0 - 0.7 /CUMM) 0 Absolute Basophils (0.0 - 0.2 /CUMM) 0 PUBS MCHC (33.0 - 37.0 G/DL) 33.1 Urines Urinalysis LIGHT H Urine Color (YEL,AMB,STR) PINK H Urine Clarity (CLEAR) HAZY H Urine pH (5.0 - 8.0) 6.0 Ur Specific [place] (1.001 - 1.035) 1.025 Urine Protein (NEG,<30 MG/DL) 30 H Urine Ketones (NEG) NEG Urine Nitrite (NEG) NEG Urine Bilirubin (NEG) NEG Urine Urobilinogen (0.1 - 1.0 EU/dl) 0.2 Ur Leukocyte Esterase (NEG) MOD H Ur Microscopic SEDIMENT EXAMINED Urine RBC (0 - 5 /HPF) PACKD H Urine WBC (0 - 2 /HPF) PACKD H Urine Bacteria (NEG/NONE) MANY H Urine Hemoglobin (NEG) LARGE H Urine Glucose (N MG/DL) NEG Last 24 Hours of Lam Results: SPEC #: [id number] KEENAN: 09/28/17 STATUS: RECD RECD: 09/28/[address]: Marcus BRAVO,[facility] SOURCE: URINE ROUT ENTR: 09/27/[id number] OT DR: Lilian BRAVO,Nathaly SPDESC: STACIA Emery MD,Jeff Villa ORDERED: URINE CULTURE COMMENT: TRIO Procedure Result URINE CULTURE PENDING Diagnostic Data Recent Imaging Findings: TECHNIQUE: Portable frontal view of the chest was obtained. FINDINGS: Lung volumes are low. No consolidation, edema, or effusion. No pneumothorax. The cardiomediastinal silhouette is within normal limits. IMPRESSION: No acute pulmonary findings. DICTATED BY: Sol BRAVO,Good DATE/TIME DICTATED:09/26/17546 FISHER TRAWL NET:RAJAN DATE/TIME TRANSCRIBED:09/26/17546 Assessment/Plan Assessment/Plan Impression: 82-year-old man, HIV positive for 15 years, noncompliant with antiretroviral therapy, last CD4 count of 22, with a history of coronary artery disease, status post [place] and stent, hypertension, hyperlipidemia, diabetes and BPH, recent admission for urinary tract infection/urinary retention s/p laser TURP admitted on 09/26/17. UTI; UA packed WBC/RBC; UC pending; as he is maintained on PCP and MARCUS prophylaxis w/ TMP/SMX and azithromycin the urine culture could be negative; consider holding azithro/Bactrim for 48 h and repeat UA/UC off abx. Retroperitoneal adenopathy; could explain the low grade fever previous day ( 100.8F) Low CD 4 count; at risk for opportunistic infections; patient refusing antiretroviral tx; goal of care to be adressed with patient and family Suggestion: 1. F/U culture results. 2. Empiric CTX 1 gm daily for now. 3. Trend CBC/BMP. Consult Acknowledgment - Thank you for your consult request.
[2017-09-28 21:21] VITALS: BP 114/64
[2017-09-29 07:12] VITALS: BP 113/59
[2017-09-29 08:24] LABS: ABSOLUTE BASOPHIL COUNT 0 /CUMM (0.0-0.2); ABSOLUTE EOSINOPHIL COUNT 0 /CUMM (0.0-0.7); ABSOLUTE MONOCYTE COUNT 0.8 /CUMM (0.10-0.60); BASOPHIL % 0.1 % (0.0-2.0); EOSINOPHIL % 0.4 % (0-5); GRANULOCYTE % 62.1 % (42.2-75.2); HEMATOCRIT 30.8 % (42-52); MEAN CORPUSCULAR HGB 29.7 PG (27.0-31.0); MEAN CORPUSCULAR HGB CONC 33.1 G/DL (33.0-37.0); MEAN CORPUSCULAR VOLUME 89.6 FL (80.0-94.0); MEAN PLATELET VOLUME 9.7 FL (7.4-10.4); PLATELET COUNT 161 /CUMM (130-400); RBC DISTRIBUTION WIDTH 13.9 % (11.5-14.5); RED BLOOD CELL CT 3.44 /CUMM (4.70-6.10); WHITE BLOOD CELL COUNT 4.9 /CUMM (4.8-10.8)
--- NOTE | 2017-09-29 08:34 | PN- Housestaff ---
Marcus BRAVO,[facility] 09/29/17 0833: Subjective Follow-up For: Weakness Subjective: Patient states he feels a little better but still feels sick. Had 2-3x diarrhea last night. [place] feverish. Still feels weak. States some burning with urination. Review of Systems Constitutional: Reports: see HPI, fever, malaise, weakness. Cardiovascular: Reports: no symptoms. Respiratory: Reports: no symptoms. Gastrointestinal: Reports: diarrhea. Genitourinary: Reports: dysuria. Musculoskeletal: Reports: no symptoms. Objective Last 24 Hrs of Vital Signs/I&O Vital Signs Date Time Temp Pulse Resp B/P B/P Pulse O2 O2 Flow FiO2 Mean Ox Delivery Rate 09/29 2217 97.9 73 20 110/62 98 09/29 1427 99.2 68 18 120/68 97 Room Air 09/29 0908 64 113/59 09/29 0907 64 113/59 09/29 0712 100.0 64 20 113/59 98 Room Air Intake & Output 09/29 1600 09/29 0800 09/29 0000 Intake Total 620 250 250 Output Total 650 Balance -30 250 250 Intake, IV 10 10 Intake, Oral 620 240 240 Number 3 0 0 Bowel Movements Output, Urine 650 Patient 165 lb Weight Weight Reported by Patient Measurement Method Physical Exam General Appearance: Alert, Oriented X3, Cooperative, Mild Distress Skin Temp/Moisture Exam: Warm/Dry Cardiovascular: Regular Rate, Normal S1, Normal S2 Lungs: Clear to Auscultation, Normal Air Movement Abdomen: Normal Bowel Sounds, Soft, No Tenderness Extremities: 2+ radial pulses Other Physical Findings: skin felt warmer today than previous days. Current Medications: Current Medications Sig/Juma Start time Last Medication Dose Route Stop Time Status Admin Acetaminophen 650 MG Q6P PRN 09/26 1145 AC PO Aspirin Buffered 81 MG DAILY 09/26 1138 AC 09/29 PO 0907 Azithromycin 1,200 MG Wilkerson@1000 09/27 1000 AC 09/27 PO 1029 Ceftriaxone Sodium 1,000 MG Q24H 09/28 2000 DC 09/28 IV 2206 Clopidogrel Bisulfate 75 MG DAILY 09/26 1140 DC 09/29 PO 0909 Diclofenac Sodium 1 DILLAN BID PRN 09/26 2200 AC 09/29 TOP 0905 Escitalopram Oxalate 10 MG DAILY 09/26 1140 AC 09/29 PO 0908 Heparin Sodium 5,000 UNIT Q8 09/26 1400 AC 09/29 (Porcine) SC 2140 Hydrocodone Bitart/ 1 TAB Q8P PRN 09/26 1145 AC Acetaminophen PO Insulin Aspart 0 TIDAC 09/26 1200 AC 09/28 SC 1330 Insulin Detemir 30 UNITS DAILY 09/26 1141 AC 09/29 SC 0928 Metoprolol Succinate 25 MG DAILY 09/26 1142 AC 09/29 PO 0907 Omeprazole 40 MG DAILY AC 09/27 0700 AC 09/29 PO 0516 Ondansetron HCl 4 MG Q12P PRN 09/26 1215 AC IV Oxycodone HCl 5 MG Q6P PRN 09/26 1145 AC PO Pravastatin Sodium 10 MG DAILY 09/26 1141 AC 09/29 PO 0909 Tamsulosin HCl 0.4 MG DAILY 09/26 1141 AC 09/29 PO 0908 Trimethoprim/ 1 TAB 09/28 1000 DC 09/28 Sulfamethoxazole PO 09/29 0959 0900 Valacyclovir HCl 1,000 MG DAILY 09/27 1000 AC 09/29 PO 0909 Zolpidem Tartrate 10 MG QPM PRN 09/26 1145 AC PO Last 24 Hrs of Lab/Lam Results Last 24 Hrs of Labs/Mics: Laboratory Tests 09/29/17 0712: Anion Gap 13, Estimated GFR > 60, BUN/Creatinine Ratio 13.6, CBC w Diff NO MAN DIFF REQ, RBC 3.44 L, MCV 89.6, MCH 29.7, RDW 13.9, MPV 9.7, Gran % 62.1, Lymphocytes % 21.3, Monocytes % 16.1 H, Eosinophils % 0.4, Basophils % 0.1, Absolute Granulocytes 3.0, Absolute Lymphocytes 1.0 L, Absolute Monocytes 0.8 H, Absolute Eosinophils 0, Absolute Basophils 0, PUBS MCHC 33.1 Microbiology 09/29 1305 BLOOD: Blood Culture - RECD 09/29 1305 BLOOD: Blood Culture - RECD Assessment/Plan Assessment: Patient is being admitted for further workup of his borderline fever spikes. Assessment: This is an 82-year-old man, HIV positive for 15 years, noncompliant with antiretroviral therapy until recently, with a recent CD4 count of 22, with a history of coronary artery disease, status post RI and stent, hypertension, hyperlipidemia, diabetes and BPH, was recently discharged from the hospital on August 2017 that was due to urinary tract infection and received a laser TURP presenting for generalized weakness, decreased oral intake, feeling weak tired and almost a fall down. Plan: #Generalized weakness/Fever of unknown origin Recently discharged for treatment of UTI annd TURP UA: showing small LE but urine culture negative Tmax 100.8 during admssion with intermittent temps of 100+ despite ceftriaxone Ucx negative thus far -discontinue ceftriaxone per ID -f/u repeat ct abd -trend cbc, bmp -cont flomax, -zofran prn #continued hematuria UA+ for blood recent TURP -f/u urology consult #ORTIZ Cr 1.5 upon admission (1.0 baseline) 1.1 today -cont to monitor #Mild hyper K nad low Na - resolved K 5.3 -> 4.3 Na 136 -> 139 -cont to monitor #diabtes -levemir -novolog sliding scale #HIV -cont valcyclovir, azithromycin, #hx of RI and stent -metropolol, pravastatin, placix, aspirin #home meds -omeprazole, diclofenac gel, zolpidem, pravastain, escitalopram #DVT prophylaxis -heparin #FULL CODE Problem List: 1. Hematuria 2. Weakness Pain Ratin Pain Location: none Pain Goal: Pain 4 or less Pain Plan: pain pathway Tomorrow's Labs & Rationales: cbc bep Angela Morrison 09/29/17 1146: Attending MD Review Statement Attending Statement Attending MD Statement: examined this patient, discuss w/resident/PA/COAL CRUSHER OPERATOR, agreed w/resident/PA/COAL CRUSHER OPERATOR, discussed with family, reviewed EMR data (avail), discussed with nursing, discussed with case mgmt, reviewed images, amended to note Attending Assessment/Plan: 82M PMH HIV positive for 15 years, noncompliant with antiretroviral therapy until recently, with a recent CD4 count of 22, h/ CAD s/p RI and stent, HTN, HLD , T2DM, BPH s/p recent TURP brought in by family for decreased PO intake, generalized weakness, lethargy, and unable to care for self. Had been diagnosed with UTI during last hospital stay treated with Ceftriaxone. No new complaints reported. ID noted. Past 24 hr event with temp 100.4 on empiric ceftriaxone. Exam benign, labs show normal WBC, ORTIZ with creatinine 1.5 and Renal function improving. Denies nausea, vomiting. 1. ORTIZ resolving 2. Hematuria s/p TURP 3. Generalized weakness 4. HIV Plan - F/U urology. - Monitor renal function - Urine culture final c/s. - ID consulted and recommend empiric iv ceftriaxone. f/u culture. - HAART as per ID. (discuss with patient) - PT eval f/u dc planning. - DVT PPx
[2017-09-29 14:27] VITALS: BP 120/68
--- NOTE | 2017-09-29 14:33 | PN- Infect Dx ---
Subjective Subjective: MAXIMUM TEMPERATURE 100.4. He complains of arthritis of the neck and nausea Objective Last 24 Hrs of Vital Signs/I&O Vital Signs Date Time Temp Pulse Resp B/P B/P Pulse O2 O2 Flow FiO2 Mean Ox Delivery Rate 09/29 0908 64 113/59 09/29 0907 64 113/59 09/29 0712 100.0 64 20 113/59 98 Room Air 09/28 2121 100.4 67 18 114/64 95 Room Air Intake & Output 09/29 1600 09/29 0800 09/29 0000 Intake Total 250 250 Output Total Balance 250 250 Intake, IV 10 10 Intake, Oral 240 240 Number 0 0 Bowel Movements Patient 165 lb Weight Weight Reported by Patient Measurement Method Physical Exam Other Physical Findings: He appears comfortable in no acute distress Neck is supple Lungs are clear Heart regular rhythm with no murmur Abdomen soft, nontender with positive bowel sounds Extremities no cyanosis, clubbing or edema Results Last 24 Hours of Lab Results: Laboratory Tests 09/29 711 Chemistry Sodium (137 - 145 mmol/L) 139 Potassium (3.5 - 5.1 mmol/L) 4.3 Chloride (98 - 107 mmol/L) 103 Carbon Dioxide (22 - 30 mmol/L) 24 Anion Gap (5 - 16) 13 BUN (9 - 20 mg/dL) 15 Creatinine (0.7 - 1.2 mg/dL) 1.1 Estimated GFR (>60 ml/min) > 60 BUN/Creatinine Ratio (7 - 25 %) 13.6 Hematology CBC w Diff NO MAN DIFF REQ WBC (4.8 - 10.8 /CUMM) 4.9 RBC (4.70 - 6.10 /CUMM) 3.44 L Hgb (14.0 - 18.0 G/DL) 10.2 L Hct (42 - 52 %) 30.8 L MCV (80.0 - 94.0 FL) 89.6 MCH (27.0 - 31.0 PG) 29.7 RDW (11.5 - 14.5 %) 13.9 Plt Count (130 - 400 /CUMM) 161 MPV (7.4 - 10.4 FL) 9.7 Gran % (42.2 - 75.2 %) 62.1 Lymphocytes % (20.5 - 51.1 %) 21.3 Monocytes % (1.7 - 9.3 %) 16.1 H Eosinophils % (0 - 5 %) 0.4 Basophils % (0.0 - 2.0 %) 0.1 Absolute Granulocytes (1.4 - 6.5 /CUMM) 3.0 Absolute Lymphocytes (1.2 - 3.4 /CUMM) 1.0 L Absolute Monocytes (0.10 - 0.60 /CUMM) 0.8 H Absolute Eosinophils (0.0 - 0.7 /CUMM) 0 Absolute Basophils (0.0 - 0.2 /CUMM) 0 PUBS MCHC (33.0 - 37.0 G/DL) 33.1 Last 24 Hours of Lam Results: Urine culture September 26 negative Urine culture September 28 negative Blood cultures 2 September 29 pending Assessment/Plan Impression: Low-grade fevers persist with white blood cell count remaining normal on Ceftriaxone Day 2 of treatment for a possible urinary tract infection, though his urine culture from admission was negative. He does have significant pyuria now 12 days status post laser TURP and reevaluation of his urinary tract may be indicated. Of note a previous CT of the abdomen and pelvis did reveal retroperitoneal lymphadenopathy, suggestive of possible lymphoma in this HIV positive patient, and this could also explain his recent fevers. His fevers could also be secondary to an opportunistic infection given his low CD4 count and history of noncompliance with his antiretroviral therapy. He remains on Azithromycin (for MARCUS prophylaxis) and Valacyclovir (for presumed suppression or prophylaxis), with Bactrim (PJP prophylaxis) apparently discontinued today. Suggestion: 1. Repeat CT of the abdomen and pelvis with IV contrast 2. Discontinue Ceftriaxone 3. Would resume Bactrim prophylaxis 4. Continue Azithromycin prophylaxis 5. Reevaluate need for Valacyclovir
--- NOTE | 2017-09-29 18:20 | CT SCAN REPORT ---
EXAMINATION: CT ABDOMEN AND PELVIS WITHOUT CONTRAST CLINICAL INFORMATION: Fever of unknown origin. COMPARISON: CT images of abdomen pelvis from 08/26/2017. TECHNIQUE: Multidetector volumetric imaging was performed from the superior aspect of the liver through the pubic symphysis. Sagittal and coronal reformatted images were obtained on the technologist's workstation. DLP: 381 mGy-cm FINDINGS: LUNG BASES: Again noted is cardiomegaly and atherosclerotic calcification of coronary arteries. No pneumonia or pleural effusion in either lung base. LIVER, GALLBLADDER, AND BILIARY TREE: Unremarkable. PANCREAS: Unremarkable. SPLEEN: Unremarkable. ADRENAL GLANDS: Unremarkable. KIDNEYS AND URETERS: Kidneys have normal size, cortical thickness and cortical attenuation. No nephrolithiasis or hydronephrosis. Again noted is mild bilateral perinephric edema. BLADDER: The urinary bladder is nearly completely empty. The base of the bladder is compressed by the large prostate gland. No bladder calculi. GASTROINTESTINAL TRACT: Bowel loops remain normal in size. Appendix is normal. No evidence of inflammation or obstruction along the gastrointestinal tract. No abdominal abscess, ascites or pneumoperitoneum. ABDOMINAL WALL: There is a very small fat-containing umbilical hernia. Also, fat-containing left inguinal hernia is noted. LYMPH NODES: Again observed is the retroperitoneal, left iliac and left inguinal lymphadenopathy. The largest left para-aortic and left common iliac lymph nodes measure up to 1.3 cm short axis dimension. Largest left inguinal lymph node is 1.7 cm short axis dimension, unchanged. VASCULAR: There is atherosclerotic calcification of the abdominal aorta, iliac and femoral arteries without aneurysm. PELVIC VISCERA: Large prostate gland compresses the bladder base. No pelvic free fluid. OSSEOUS STRUCTURES: Transitional lumbosacral anatomy with lumbarization of S1. Chronic facet osteoarthritis and mild grade 1 anterolisthesis at the L5-S1 level. No suspicious lytic or blastic lesions. A few small sclerotic foci in the pelvis have the appearance of bone islands. IMPRESSION: 1. No specific source of fever is identified. 2. Prostatomegaly. 3. Left inguinal, iliac and retroperitoneal lymphadenopathy is unchanged. Query whether patient has metastatic prostate carcinoma or other known cause of lymphadenopathy. 4. No acute findings within the visualized lower chest, abdomen or pelvis compared to 08/26/2017.
--- NOTE | 2017-09-29 18:37 | Cons- Cardiology ---
General Information and HPI Consulting Request Date of Consult: 09/29/17 Requested By: Angela Morrison MD Reason for Consult: Coronary disease, hematuria History of Present Illness: The patient is an 82-year-old male with history of diabetes mellitus, hypertension, CAD status post drug-eluting stent to the LAD in December 2015, and HIV, status post TURP on September 18. He is followed in the office by Dr. Remy from my group. He presented to [facility] with complaint of generalized fatigue, fever, decreased oral intake, weakness, and nausea. He is noted to have gross hematuria. He was noted to have acute renal insufficiency on admission which has improved. No chest pain. No shortness of breath. No palpitations. No diaphoresis. No nausea or vomiting. His coronary artery disease has been stable. He is on telemetry platelet therapy which was held prior to his TURP and restarted postoperatively. Allergies/Medications Allergies: Coded Allergies: No Known Allergies (08/26/17) Home Med List: Ammonium Lactate 12 % LOTION 1 DILLAN TOP BID SKIN (Reported) Aspirin (Ecotrin*) 81 MG TABLET.DR 1 TAB PO DAILY HEART HEALTH (Reported) Azithromycin 600 MG TABLET 2 TAB PO QSUN ANTIBIOTIC (Reported) Clopidogrel Bisulfate (Clopidogrel) 75 MG TABLET 1 TAB PO DAILY HEART HEALTH (Reported) Darunavir/Cobicistat (Prezcobix 800 MG-150 MG Tablet) 800 MG-150 MG TABLET 1 TAB PO DAILY HIV (Reported) Desonide (Desowen) 0.05 % CREAM..G. 1 DILLAN TOP BID SKIN (Reported) apply to affected area(s) Diclofenac Sodium (Voltaren) 1 % GEL..GRAM. 1 DILLAN TOP BID PRN PAIN (Reported) apply to affected area(s) Dolutegravir Sodium (Tivicay) 50 MG TABLET 1 TAB PO DAILY HIV (Reported) Escitalopram Oxalate 10 MG TABLET 1 TAB PO DAILY DEPRESSION (Reported) Hydrochlorothiazide 12.5 MG CAPSULE 1 CAP PO DAILY HEART HEALTH (Reported) Insulin Glargine,Hum.rec.anlog (Toujeo Solostar) 300 UNIT/ML (1.5 ML) INSULN.PEN 40 UNIT SC DAILY DM (Reported) Metoprolol Succinate 25 MG TAB 1 TAB PO DAILY HEART HEALTH (Reported) Nut.tx.gluc.intoler,Lac-Fr,Soy (Glucerna) (Unknown Strength) LIQUID 1 BOT PO BID NUTRITIONAL SUPPLEMENT (Reported) Pantoprazole Sodium 40 MG TABLET.DR 1 TAB PO DAILY HEART HEALTH (Reported) Pentoxifylline 400 MG TABLET.ER 1 TAB PO DAILY UNKNOWN (Reported) Pravastatin Sodium 10 MG TABLET 1 TAB PO DAILY HEART HEALTH (Reported) Sitagliptin Phos/Metformin HCl (Janumet 50-1,000 MG Tablet) 50 MG-1,000 MG TABLET 1 TAB PO BID DM (Reported) Sulfamethoxazole/Trimethoprim (Sulfamethoxazole-Tmp Ds Tablet) 800 MG-160 MG TABLET 1 TAB PO Thursday ABT (Reported) Tamsulosin HCl 0.4 MG CAP.ER.24H 1 CAP PO DAILY ENLARGED PROSTATE (Reported) Valacyclovir HCl (Valacyclovir) 1,000 MG TABLET 1 TAB PO DAILY ANTIVIRAL ( Reported) Zolpidem Tartrate 10 MG TABLET 1 TAB PO QPMP SLEEP AIDE (Reported) Current Medications: Current Medications Sig/Juma Start time Last Medication Dose Route Stop Time Status Admin Acetaminophen 650 MG Q6P PRN 09/26 1145 AC PO Aspirin Buffered 81 MG DAILY 09/26 1138 AC 09/29 PO 0907 Azithromycin 1,200 MG Wilkerson@1000 09/27 1000 AC 09/27 PO 1029 Ceftriaxone Sodium 1,000 MG Q24H 09/28 2000 DC 09/28 IV 2206 Clopidogrel Bisulfate 75 MG DAILY 09/26 1140 AC 09/29 PO 0909 Diclofenac Sodium 1 DILLAN BID PRN 09/26 2200 AC 09/29 TOP 0905 Escitalopram Oxalate 10 MG DAILY 09/26 1140 AC 09/29 PO 0908 Heparin Sodium 5,000 UNIT Q8 09/26 1400 AC 09/29 (Porcine) SC 1414 Hydrocodone Bitart/ 1 TAB Q8P PRN 09/26 1145 AC Acetaminophen PO Insulin Aspart 0 TIDAC 09/26 1200 AC 09/28 SC 1330 Insulin Detemir 30 UNITS DAILY 09/26 1141 AC 09/29 SC 0928 Metoprolol Succinate 25 MG DAILY 09/26 1142 AC 09/29 PO 0907 Omeprazole 40 MG DAILY AC 09/27 0700 AC 09/29 PO 0516 Ondansetron HCl 4 MG Q12P PRN 09/26 1215 AC IV Oxycodone HCl 5 MG Q6P PRN 09/26 1145 AC PO Pravastatin Sodium 10 MG DAILY 09/26 1141 AC 09/29 PO 0909 Tamsulosin HCl 0.4 MG DAILY 09/26 1141 AC 09/29 PO 0908 Trimethoprim/ 1 TAB 09/28 1000 DC 09/28 Sulfamethoxazole PO 09/29 0959 0900 Valacyclovir HCl 1,000 MG DAILY 09/27 1000 AC 09/29 PO 0909 Zolpidem Tartrate 10 MG QPM PRN 09/26 1145 AC PO Review of Systems Review of Systems: No rash. No tremor. No hemoptysis. No hematemesis. All other systems were reviewed, and were noted to be negative. Past History Travel History Traveled to [place] past 21 day No Medical History Blood Transfusion Hx: No Neurological: NONE EENT: glaucoma Cardiovascular: CAD (s/p stent), hypertension, myocardial infarction Respiratory: NONE Gastrointestinal: GERD Hepatic: NONE Renal: benign prost hyperplasia Musculoskeletal: NONE Psychiatric: depression Endocrine: diabetes Blood Disorders: HIV Cancer(s): NONE CARE PARTNER/Reproductive: HIV Surgical History Surgical History: non-contributory Family History Relations & Conditions If Any: BROTHER Family hx of lung cancer Psychosocial History Where Do You Live? Home Services at Home: Home Health Aide, Occupational Therapy, Physical Therapy Smoking Status: Never Smoked Exam & Diagnostic Data Vital Signs and I&O Vital Signs Date Time Temp Pulse Resp B/P B/P Pulse O2 O2 Flow FiO2 Mean Ox Delivery Rate 09/29 1427 99.2 68 18 120/68 97 Room Air 09/29 0908 64 113/59 09/29 0907 64 113/59 09/29 0712 100.0 64 20 113/59 98 Room Air 09/28 2121 100.4 67 18 114/64 95 Room Air Intake & Output 09/29 1600 09/29 0800 09/29 0000 09/28 1600 09/28 0800 09/28 0000 Intake Total 620 618 752 2376 615 240 Output Total 650 300 25 Balance -30 250 250 950 590 240 Intake, IV 10 10 600 375 Intake, Oral 620 240 240 650 240 240 Number 3 0 0 1 1 Bowel Movements Output, Urine 650 300 25 Patient 165 lb Weight Weight Reported by Patient Measurement Method Physical Exam: Gen: The patient is in no acute distress HEENT: Normal nose, ears, and oropharynx. Pupils equal bilaterally. Conjunctiva normal. Neck: Supple with no JVD, no masses, and no thyromegaly Lungs: Clear to auscultation with normal respiratory effort Heart: RRR, S1, S2, no murmurs. No peripheral edema, 2+ pulses in the lower extremities bilaterally Abdomen: Soft, nontender, no masses. No hepatomegaly. No splenomegaly Extremities: No clubbing or cyanosis. Normal muscle strength in the upper and lower extremities Skin: Normal skin turgor with no skin ulcers or lesions noted. Neuro: Cranial nerves intact. Sensation intact Psych: Alert and oriented 3 with appropriate affect Labs/Lam Results: Laboratory Tests 09/29 09/28 0712 0840 Chemistry Sodium (137 - 145 mmol/L) 139 Potassium (3.5 - 5.1 mmol/L) 4.3 Chloride (98 - 107 mmol/L) 103 Carbon Dioxide (22 - 30 mmol/L) 24 Anion Gap (5 - 16) 13 BUN (9 - 20 mg/dL) 15 Creatinine (0.7 - 1.2 mg/dL) 1.1 Estimated GFR (>60 ml/min) > 60 BUN/Creatinine Ratio (7 - 25 %) 13.6 Hematology CBC w Diff NO MAN DIFF REQ WBC (4.8 - 10.8 /CUMM) 4.9 RBC (4.70 - 6.10 /CUMM) 3.44 L Hgb (14.0 - 18.0 G/DL) 10.2 L Hct (42 - 52 %) 30.8 L MCV (80.0 - 94.0 FL) 89.6 MCH (27.0 - 31.0 PG) 29.7 RDW (11.5 - 14.5 %) 13.9 Plt Count (130 - 400 /CUMM) 161 MPV (7.4 - 10.4 FL) 9.7 Gran % (42.2 - 75.2 %) 62.1 Lymphocytes % (20.5 - 51.1 %) 21.3 Monocytes % (1.7 - 9.3 %) 16.1 H Eosinophils % (0 - 5 %) 0.4 Basophils % (0.0 - 2.0 %) 0.1 Absolute Granulocytes (1.4 - 6.5 /CUMM) 3.0 Absolute Lymphocytes (1.2 - 3.4 /CUMM) 1.0 L Absolute Monocytes (0.10 - 0.60 /CUMM) 0.8 H Absolute Eosinophils (0.0 - 0.7 /CUMM) 0 Absolute Basophils (0.0 - 0.2 /CUMM) 0 PUBS MCHC (33.0 - 37.0 G/DL) 33.1 Urines Urinalysis LIGHT H Urine Color (YEL,AMB,STR) PINK H Urine Clarity (CLEAR) HAZY H Urine pH (5.0 - 8.0) 6.0 Ur Specific [place] (1.001 - 1.035) 1.025 Urine Protein (NEG,<30 MG/DL) 30 H Urine Ketones (NEG) NEG Urine Nitrite (NEG) NEG Urine Bilirubin (NEG) NEG Urine Urobilinogen (0.1 - 1.0 EU/dl) 0.2 Ur Leukocyte Esterase (NEG) MOD H Ur Microscopic SEDIMENT EXAMINED Urine RBC (0 - 5 /HPF) PACKD H Urine WBC (0 - 2 /HPF) PACKD H Urine Bacteria (NEG/NONE) MANY H Urine Hemoglobin (NEG) LARGE H Urine Glucose (N MG/DL) NEG 09/28 0733 Chemistry Sodium (137 - 145 mmol/L) 138 Potassium (3.5 - 5.1 mmol/L) 4.4 Chloride (98 - 107 mmol/L) 101 Carbon Dioxide (22 - 30 mmol/L) 23 Anion Gap (5 - 16) 14 BUN (9 - 20 mg/dL) 21 H Creatinine (0.7 - 1.2 mg/dL) 1.3 H Estimated GFR (>60 ml/min) 53 L BUN/Creatinine Ratio (7 - 25 %) 16.2 Hematology CBC w Diff NO MAN DIFF REQ WBC (4.8 - 10.8 /CUMM) 5.9 RBC (4.70 - 6.10 /CUMM) 3.67 L Hgb (14.0 - 18.0 G/DL) 10.8 L Hct (42 - 52 %) 32.8 L MCV (80.0 - 94.0 FL) 89.2 MCH (27.0 - 31.0 PG) 29.5 RDW (11.5 - 14.5 %) 13.6 Plt Count (130 - 400 /CUMM) 176 MPV (7.4 - 10.4 FL) 9.8 Gran % (42.2 - 75.2 %) 67.3 Lymphocytes % (20.5 - 51.1 %) 17.2 L Monocytes % (1.7 - 9.3 %) 15.0 H Eosinophils % (0 - 5 %) 0.2 Basophils % (0.0 - 2.0 %) 0.3 Absolute Granulocytes (1.4 - 6.5 /CUMM) 4.0 Absolute Lymphocytes (1.2 - 3.4 /CUMM) 1.0 L Absolute Monocytes (0.10 - 0.60 /CUMM) 0.9 H Absolute Eosinophils (0.0 - 0.7 /CUMM) 0 Absolute Basophils (0.0 - 0.2 /CUMM) 0 PUBS MCHC (33.0 - 37.0 G/DL) 33.1 Diagnostic Data EKG Results EKG tracing is independently reviewed, and reveals normal sinus rhythm at 66, normal EKG CXR Results Lung volumes are low. No consolidation, edema, or effusion. No pneumothorax. The cardiomediastinal silhouette is within normal limits. Other Results CT scan of the abdomen: 1. No specific source of fever is identified. 2. Prostatomegaly. 3. Left inguinal, iliac and retroperitoneal lymphadenopathy is unchanged. Query whether patient has metastatic prostate carcinoma or other known cause of lymphadenopathy. 4. No acute findings within the visualized lower chest, abdomen or pelvis compared to 08/26/2017. Echocardiogram 12/25/15: The left ventricle is normal in size. There is mild to moderate concentric left ventricular hypertrophy. Left ventricular systolic function is normal. Ejection Fraction = 65-70% by subjective analysis. The transmitral spectral Doppler flow pattern is suggestive of impaired LV relaxation. No clear regional wall motion abnormalities. Cardiac catheterization 12/24/15: 1. 2 vessel CAD 2. Successful PCI of the mid LAD artery utilizing CHETAN~with an excellent angiographic result. 3. Continue aggressive risk factor modification 4. Dual anti-platelet Rx with ASA 81 mg indefinitely and Brilinta 90 mg BID~for minimum one year. Patient was loaded with 180 mg in the catheterization. Assessment/Plan Assessment/Plan The patient is an 82-year-old male with history of CAD, status post drug-eluting stent placement in December 2015, diabetes mellitus, and HIV who is status post recent TURP stenting with fever, generalized weakness, and gross hematuria. He has continued to have hematuria, and his hemoglobin has decreased from 11.8 on September 26 to 10.2 today. Recommendations: * Since he is greater than 1 year out from his stent placement, Plavix may be held until the hematuria improves. * Aspirin may be held as well if necessary because of continued gross hematuria, however this should be restarted as soon as practical. * Once cleared by urology, dual antiplatelet therapy with both Plavix and aspirin should be resumed. Consult Acknowledgment - Thank you for your consult request.
[2017-09-29 22:17] VITALS: BP 110/62
[2017-09-30 05:55] VITALS: BP 112/64
[2017-09-30 08:14] LABS: ABSOLUTE BASOPHIL COUNT 0 /CUMM (0.0-0.2); ABSOLUTE EOSINOPHIL COUNT 0 /CUMM (0.0-0.7); ABSOLUTE GRANULOCYTE CT 2.9 /CUMM (1.4-6.5); ABSOLUTE LYMPH COUNT 0.4 /CUMM (1.2-3.4); ABSOLUTE MONOCYTE COUNT 0.7 /CUMM (0.10-0.60); BASOPHIL % 0.2 % (0.0-2.0); EOSINOPHIL % 0.5 % (0-5); GRANULOCYTE % 70.8 % (42.2-75.2); HEMATOCRIT 30.7 % (42-52); MEAN CORPUSCULAR HGB 30.1 PG (27.0-31.0); MEAN CORPUSCULAR HGB CONC 33.7 G/DL (33.0-37.0); MEAN CORPUSCULAR VOLUME 89.2 FL (80.0-94.0); MEAN PLATELET VOLUME 9.1 FL (7.4-10.4); PLATELET COUNT 150 /CUMM (130-400); RBC DISTRIBUTION WIDTH 13.7 % (11.5-14.5); RED BLOOD CELL CT 3.45 /CUMM (4.70-6.10); WHITE BLOOD CELL COUNT 4.1 /CUMM (4.8-10.8)
--- NOTE | 2017-09-30 14:11 | PN- Housestaff ---
Marcus BRAVO,[facility] 09/30/17 1411: Subjective Follow-up For: weakness hematuria Subjective: Still feeling sick. States still having dark urine. 2 episodes of diarrhea last night. Review of Systems Constitutional: Reports: malaise, weakness. EENTM: Reports: no symptoms. Cardiovascular: Reports: no symptoms. Respiratory: Reports: no symptoms. Gastrointestinal: Reports: diarrhea. Genitourinary: Reports: see HPI (dark urine). Musculoskeletal: Reports: no symptoms. Objective Last 24 Hrs of Vital Signs/I&O Vital Signs Date Time Temp Pulse Resp B/P B/P Pulse O2 O2 Flow FiO2 Mean Ox Delivery Rate 09/30 1449 97.9 63 20 120/62 97 Room Air 09/30 1106 70 112/64 09/30 1105 70 112/64 09/30 0555 98.2 70 20 112/64 97 Room Air 09/29 2217 97.9 73 20 110/62 98 Intake & Output 09/30 1600 09/30 0800 09/30 0000 Intake Total 620 Output Total 350 600 400 Balance 270 -600 -400 Intake, Oral 620 Number 1 1 Bowel Movements Output, Urine 350 600 400 Physical Exam General Appearance: Alert, Cooperative, No Acute Distress Skin Temp/Moisture Exam: Warm/Dry Cardiovascular: Regular Rate, Normal S1, Normal S2 Lungs: Clear to Auscultation, Normal Air Movement Abdomen: Normal Bowel Sounds, Soft, No Tenderness Extremities: 2+ radial pulses Other Physical Findings: pt skin feeling warm than normal Current Medications: Current Medications Sig/Juma Start time Last Medication Dose Route Stop Time Status Admin Acetaminophen 650 MG Q6P PRN 09/26 1145 AC PO Aspirin Buffered 81 MG DAILY 09/26 1138 AK 09/30 PO 1104 Azithromycin 1,200 MG Wilkerson@1000 09/27 1000 09/27 PO 1029 Ceftriaxone Sodium 1,000 MG Q24H 09/28 2000 DC 09/28 IV 2206 Clopidogrel Bisulfate 75 MG DAILY 09/26 1140 DC 09/29 PO 0909 Dextrose/Sodium 1,000 ML Q13H 10/01 0000 AC Chloride IV Diclofenac Sodium 1 DILLAN BID PRN 09/26 2200 AC 09/29 TOP 0905 Escitalopram Oxalate 10 MG DAILY 09/26 1140 AC 09/30 PO 1106 Heparin Sodium 5,000 UNIT Q8 09/26 1400 AC 09/30 (Porcine) SC 0630 Hydrocodone Bitart/ 1 TAB Q8P PRN 09/26 1145 AC Acetaminophen PO Insulin Aspart 0 TIDAC 09/26 1200 AC 09/30 SC 10/01 0000 1206 Insulin Detemir 30 UNITS DAILY 09/26 1141 AC 09/30 SC 1000 Insulin Human Regular 0 Q6 10/01 0000 AC SC Metoprolol Succinate 25 MG DAILY 09/26 1142 AC 09/30 PO 1106 Omeprazole 40 MG DAILY AC 09/27 0700 AC 09/30 PO 0624 Ondansetron HCl 4 MG Q12P PRN 09/26 1215 AC IV Oxycodone HCl 5 MG Q6P PRN 09/26 1145 AC PO Patient Medication 1 ED ONE ONE 09/30 1200 DC 09/30 Teaching ED 09/30 1201 1207 Pravastatin Sodium 10 MG DAILY 09/26 1141 AC 09/30 PO 1106 Tamsulosin HCl 0.4 MG DAILY 09/26 1141 AC 09/30 PO 1105 Trimethoprim/ 1 TAB 09/30 1000 AC 09/30 Sulfamethoxazole PO 10/01 0959 1104 Valacyclovir HCl 1,000 MG DAILY 09/27 1000 AC 09/30 PO 1107 Zolpidem Tartrate 10 MG QPM PRN 09/26 1145 AC PO Last 24 Hrs of Lab/Lam Results Last 24 Hrs of Labs/Mics: Laboratory Tests 09/30/17 0715: Anion Gap 15, Estimated GFR > 60, BUN/Creatinine Ratio 12.7, CBC w Diff NO MAN DIFF REQ, RBC 3.45 L, MCV 89.2, MCH 30.1, RDW 13.7, MPV 9.1, Gran % 70.8, Lymphocytes % 10.5 L, Monocytes % 18.0 H, Eosinophils % 0.5, Basophils % 0.2, Absolute Granulocytes 2.9, Absolute Lymphocytes 0.4 L, Absolute Monocytes 0.7 H, Absolute Eosinophils 0, Absolute Basophils 0, PUBS MCHC 33.7 Assessment/Plan Assessment: Patient is being admitted for further workup of his borderline fever spikes. Assessment: This is an 82-year-old man, HIV positive for 15 years, noncompliant with antiretroviral therapy until recently, with a recent CD4 count of 22, with a history of coronary artery disease, status post ME and stent, hypertension, hyperlipidemia, diabetes and BPH, was recently discharged from the hospital on August 2017 that was due to urinary tract infection and received a laser TURP presenting for generalized weakness, decreased oral intake, feeling weak tired and almost a fall down. Plan: #Generalized weakness/Fever of unknown origin Recently discharged for treatment of UTI annd TURP UA: showing small LE but urine culture negative Tmax 100.8 during admssion with intermittent temps of 100+ despite ceftriaxone Ucx negative thus far Repeat ct abd: Prostatomegaly. Left inguinal, iliac and retroperitoneal lymphadenopathy is unchanged. No acute findings within the visualized lower chest, abdomen or pelvis compared to 08/26/2017. -There was questions regarding patient being noncompliant with HAART therapy. Patient has been taking home HAART during this admission. -pt going to repeat cystoscopy -Consider biopsy of his left inguinal lymph node -Continue Bactrim and Azithromycin and Valacyclovir prophylaxis -discontinued ceftriaxone per ID -trend cbc, bmp -cont flomax, -zofran prn #continued hematuria UA+ for blood recent TURP -possible need for prostate biopsy tomorrow -holding plavix and aspirin for hematuria but will restart as soon as possible #ORTIZ Cr 1.5 upon admission (1.0 baseline) 1.1 today -cont to monitor #Mild hyper K nad low Na - resolved K 5.3 -> 4.1 Na 136 -> 140 -cont to monitor #diabtes -levemir -novolog sliding scale #HIV -cont valcyclovir, azithromycin, #hx of ME and stent -metropolol, pravastatin, placix, aspirin #home meds -omeprazole, diclofenac gel, zolpidem, pravastain, escitalopram #DVT prophylaxis -heparin #FULL CODE Problem List: 1. Weakness 2. Hematuria Pain Ratin Pain Location: none Pain Goal: Pain 4 or less Pain Plan: none Tomorrow's Labs & Rationales: cbc bep TamikoAngela grover 09/30/17 1437: Attending MD Review Statement Attending Statement Attending MD Statement: examined this patient, discuss w/resident/PA/HEEL SPRAYER, agreed w/resident/PA/HEEL SPRAYER, discussed with family, reviewed EMR data (avail), discussed with nursing, discussed with case mgmt, reviewed images, amended to note Attending Assessment/Plan: 82M PMH HIV positive for 15 years, noncompliant with antiretroviral therapy until recently, with a recent CD4 count of 22, h/ CAD s/p ME and stent, HTN, HLD , T2DM, BPH s/p recent TURP brought in by family for decreased PO intake, generalized weakness, lethargy, and unable to care for self. Had been diagnosed with UTI during last hospital stay treated with Ceftriaxone. No new complaints reported. ID noted. Past 24 hr event with afebrile and abx discontinued. cultures remain negative 1. ORTIZ resolved 2. Hematuria s/p TURP 3. Generalized weakness 4. HIV 5. H/o CAD on DAPT had stent > 1 year ago. Plan - F/U urology. Plan for cystoscopy tomorrow. NPO past midnight. Hold blood thinners. - Urine culture final c/s negative so far - ID consulted and recommend monitor off abx and it appears lymphoma. - HAART as per ID. (discuss with patient) - antiplatelet therapy as per cardiology. - PT eval f/u dc planning. - DVT PPx
--- NOTE | 2017-09-30 14:26 | Event Note ---
Event Note Event Note: Spoke with Dr. Victoria today regarding hematuria. He will get cystoscopy tomorrow.
--- NOTE | 2017-09-30 14:42 | PN- Infect Dx ---
Subjective Subjective: Afebrile without complaints Objective Last 24 Hrs of Vital Signs/I&O Vital Signs Date Time Temp Pulse Resp B/P B/P Pulse O2 O2 Flow FiO2 Mean Ox Delivery Rate 09/30 1106 70 112/64 09/30 1105 70 112/64 09/30 0555 98.2 70 20 112/64 97 Room Air 09/29 2217 97.9 73 20 110/62 98 09/29 1427 99.2 68 18 120/68 97 Room Air Intake & Output 09/30 1600 09/30 0800 09/30 0000 Intake Total 620 Output Total 350 600 400 Balance 270 -600 -400 Intake, Oral 620 Number 1 1 Bowel Movements Output, Urine 350 600 400 Physical Exam Other Physical Findings: He appears comfortable in no acute distress Lungs are clear Heart regular rhythm with no murmur Abdomen is soft, nontender positive bowel sounds Extremities no cyanosis, clubbing or edema Results Last 24 Hours of Lab Results: Laboratory Tests 09/30 0715 Chemistry Sodium (137 - 145 mmol/L) 140 Potassium (3.5 - 5.1 mmol/L) 4.1 Chloride (98 - 107 mmol/L) 102 Carbon Dioxide (22 - 30 mmol/L) 23 Anion Gap (5 - 16) 15 BUN (9 - 20 mg/dL) 14 Creatinine (0.7 - 1.2 mg/dL) 1.1 Estimated GFR (>60 ml/min) > 60 BUN/Creatinine Ratio (7 - 25 %) 12.7 Hematology CBC w Diff NO MAN DIFF REQ WBC (4.8 - 10.8 /CUMM) 4.1 L RBC (4.70 - 6.10 /CUMM) 3.45 L Hgb (14.0 - 18.0 G/DL) 10.4 L Hct (42 - 52 %) 30.7 L MCV (80.0 - 94.0 FL) 89.2 MCH (27.0 - 31.0 PG) 30.1 RDW (11.5 - 14.5 %) 13.7 Plt Count (130 - 400 /CUMM) 150 MPV (7.4 - 10.4 FL) 9.1 Gran % (42.2 - 75.2 %) 70.8 Lymphocytes % (20.5 - 51.1 %) 10.5 L Monocytes % (1.7 - 9.3 %) 18.0 H Eosinophils % (0 - 5 %) 0.5 Basophils % (0.0 - 2.0 %) 0.2 Absolute Granulocytes (1.4 - 6.5 /CUMM) 2.9 Absolute Lymphocytes (1.2 - 3.4 /CUMM) 0.4 L Absolute Monocytes (0.10 - 0.60 /CUMM) 0.7 H Absolute Eosinophils (0.0 - 0.7 /CUMM) 0 Absolute Basophils (0.0 - 0.2 /CUMM) 0 PUBS MCHC (33.0 - 37.0 G/DL) 33.7 Pathology from his recent laser TURP revealed no prostate gland identified Last 24 Hours of Lam Results: Blood cultures September 29 negative Urine culture September 28 negative Recent Imaging Studies: CT of the abdomen and pelvis without contrast September 29 reveals prostatomegaly and left inguinal, iliac and retroperitoneal lymphadenopathy unchanged from his previous study Assessment/Plan Impression: Stable with no further fevers and with white blood cell count remaining normal now off antibiotics with no evidence of any infection and with his recent cultures all negative. He does have significant pyuria, possibly related to his recent laser TURP 13 days ago, with the CT scan (without contrast) only revealing prostatomegaly, with no suggestion of an abscess. The CT scan again revealed retroperitoneal lymphadenopathy, unchanged from the previous study, possibly related to his HIV, for example lymphoma, or to his prostate, with the biopsy from his recent TURP negative for any prostate gland tissue. He remains on Azithromycin (for MARCUS prophylaxis), Bactrim (PJP prophylaxis) and Valacyclovir (for presumed suppression or prophylaxis). Suggestion: 1. Urology follow-up regarding his persistent pyuria and possible need for prostate biopsy 2. Consider biopsy of his left inguinal lymph node 3. Continue Bactrim and Azithromycin prophylaxis 4. Reevaluate need for Valacyclovir
[2017-09-30 14:49] VITALS: BP 120/62
--- NOTE | 2017-09-30 15:38 | PN- Cardiology ---
Subjective Subjective: Doing well with no new symptoms. According to the patient and family, he continues to have hematuria. Objective Vital Signs and I&Os Vital Signs Date Time Temp Pulse Resp B/P B/P Pulse O2 O2 Flow FiO2 Mean Ox Delivery Rate 09/30 1449 97.9 63 20 120/62 97 Room Air 09/30 1106 70 112/64 09/30 1105 70 112/64 09/30 0555 98.2 70 20 112/64 97 Room Air 09/29 2217 97.9 73 20 110/62 98 Intake & Output 09/30 1600 09/30 0800 09/30 0000 09/29 1600 09/29 0800 09/29 0000 Intake Total 620 620 250 250 Output Total 350 600 400 650 Balance 270 -600 -400 -30 250 250 Intake, IV 10 10 Intake, Oral 620 620 240 240 Number 1 1 3 0 0 Bowel Movements Output, Urine 350 600 400 650 Patient 165 lb Weight Weight Reported by Patient Measurement Method Current Medications: Current Medications Sig/Juma Start time Last Medication Dose Route Stop Time Status Admin Acetaminophen 650 MG Q6P PRN 09/26 1145 AC PO Aspirin Buffered 81 MG DAILY 09/26 1138 DC 09/30 PO 1104 Azithromycin 1,200 MG Wilkerson@1000 09/27 1000 AC 09/27 PO 1029 Ceftriaxone Sodium 1,000 MG Q24H 09/28 2000 DC 09/28 IV 2206 Clopidogrel Bisulfate 75 MG DAILY 09/26 1140 DC 09/29 PO 0909 Dextrose/Sodium 1,000 ML Q13H 10/01 0000 AC Chloride IV Diclofenac Sodium 1 DILLAN BID PRN 09/26 2200 AC 09/29 TOP 0905 Escitalopram Oxalate 10 MG DAILY 09/26 1140 AC 09/30 PO 1106 Heparin Sodium 5,000 UNIT Q8 09/26 1400 AC 09/30 (Porcine) SC 0630 Hydrocodone Bitart/ 1 TAB Q8P PRN 09/26 1145 AC Acetaminophen PO Insulin Aspart 0 TIDAC 09/26 1200 AC 09/30 SC 10/01 0000 1206 Insulin Detemir 30 UNITS DAILY 09/26 1141 AC 09/30 SC 1000 Insulin Human Regular 0 Q6 10/01 0000 AC SC Metoprolol Succinate 25 MG DAILY 09/26 1142 AC 09/30 PO 1106 Omeprazole 40 MG DAILY AC 09/27 0700 AC 09/30 PO 0624 Ondansetron HCl 4 MG Q12P PRN 09/26 1215 AC IV Oxycodone HCl 5 MG Q6P PRN 09/26 1145 AC PO Patient Medication 1 ED ONE ONE 09/30 1200 DC 09/30 Teaching ED 09/30 1201 1207 Pravastatin Sodium 10 MG DAILY 09/26 1141 AC 09/30 PO 1106 Tamsulosin HCl 0.4 MG DAILY 09/26 1141 AC 09/30 PO 1105 Trimethoprim/ 1 TAB 09/30 1000 AC 09/30 Sulfamethoxazole PO 10/01 0959 1104 Valacyclovir HCl 1,000 MG DAILY 09/27 1000 AC 09/30 PO 1107 Zolpidem Tartrate 10 MG QPM PRN 09/26 1145 AC PO Results Last 48 Hrs of Labs/Mics: Laboratory Tests 09/30/17 0715: Anion Gap 15, Estimated GFR > 60, BUN/Creatinine Ratio 12.7, CBC w Diff NO MAN DIFF REQ, RBC 3.45 L, MCV 89.2, MCH 30.1, RDW 13.7, MPV 9.1, Gran % 70.8, Lymphocytes % 10.5 L, Monocytes % 18.0 H, Eosinophils % 0.5, Basophils % 0.2, Absolute Granulocytes 2.9, Absolute Lymphocytes 0.4 L, Absolute Monocytes 0.7 H, Absolute Eosinophils 0, Absolute Basophils 0, PUBS MCHC 33.7 09/29/17 0712: Anion Gap 13, Estimated GFR > 60, BUN/Creatinine Ratio 13.6, CBC w Diff NO MAN DIFF REQ, RBC 3.44 L, MCV 89.6, MCH 29.7, RDW 13.9, MPV 9.7, Gran % 62.1, Lymphocytes % 21.3, Monocytes % 16.1 H, Eosinophils % 0.4, Basophils % 0.1, Absolute Granulocytes 3.0, Absolute Lymphocytes 1.0 L, Absolute Monocytes 0.8 H, Absolute Eosinophils 0, Absolute Basophils 0, PUBS MCHC 33.1 Assessment/Plan Assessment/Plan Assessment: 1. Hematuria post TURP 2. CAD with stents in 2015 3. DM 4. Stable normocytic anemia 5. Transient acute renal insufficiency Recommendations: - Continue current medication regimen - COntinue to monitor H/H Continue telemetry? No
[2017-09-30 21:17] VITALS: BP 110/64
[2017-10-01 06:25] VITALS: BP 118/60
--- NOTE | 2017-10-01 07:49 | PN- Cardiology ---
Objective Vital Signs and I&Os Vital Signs Date Time Temp Pulse Resp B/P B/P Pulse O2 O2 Flow FiO2 Mean Ox Delivery Rate 10/01 0625 98.1 60 20 118/60 95 Room Air 09/30 2117 98.3 62 20 110/64 96 Room Air 09/30 1449 97.9 63 20 120/62 97 Room Air 09/30 1106 70 112/64 09/30 1105 70 112/64 Intake & Output 10/01 0800 10/01 0000 09/30 1600 09/30 0800 09/30 0000 09/29 1600 Intake Total 840 480 620 620 Output Total 250 350 600 400 650 Balance 840 230 270 -600 -400 -30 Intake, IV 600 Intake, Oral 240 480 620 620 Number 2 2 1 1 3 Bowel Movements Output, Urine 250 350 600 400 650 Patient 165 lb Weight Weight Reported by Patient Measurement Method Current Medications: Current Medications Sig/Juma Start time Last Medication Dose Route Stop Time Status Admin Acetaminophen 650 MG Q6P PRN 09/26 1145 AC PO Aspirin Buffered 81 MG DAILY 09/26 1138 DC 09/30 PO 1104 Azithromycin 1,200 MG Wilkerson@1000 09/27 1000 AC 09/27 PO 1029 Dextrose 25 GM ONCE ONE 10/01 0630 DC 10/01 IV 10/01 0631 0631 Dextrose/Sodium 1,000 ML Q13H 10/01 0000 AC 09/30 Chloride IV 2228 Diclofenac Sodium 1 DILLAN BID PRN 09/26 2200 AC 09/29 TOP 0905 Escitalopram Oxalate 10 MG DAILY 09/26 1140 AC 09/30 PO 1106 Heparin Sodium 5,000 UNIT Q8 09/26 1400 AC 09/30 (Porcine) SC 2228 Hydrocodone Bitart/ 1 TAB Q8P PRN 09/26 1145 AC Acetaminophen PO Insulin Aspart 0 TIDAC 09/26 1200 DC 09/30 SC 10/01 0000 1206 Insulin Detemir 30 UNITS DAILY 09/26 1141 AC 09/30 SC 1000 Insulin Human Regular 0 Q6 10/01 0000 10/01 SC 0028 Metoprolol Succinate 25 MG DAILY 09/26 1142 AC 09/30 PO 1106 Nystatin 1 DILLAN BID 10/01 0312 AC TOP Omeprazole 40 MG DAILY AC 09/27 0700 AC 10/01 PO 0612 Ondansetron HCl 4 MG Q12P PRN 09/26 1215 AC IV Oxycodone HCl 5 MG Q6P PRN 09/26 1145 AC PO Patient Medication 1 ED ONE ONE 09/30 1200 DC 09/30 Teaching ED 09/30 1201 1207 Pravastatin Sodium 10 MG DAILY 09/26 1141 AC 09/30 PO 1106 Tamsulosin HCl 0.4 MG DAILY 09/26 1141 AC 09/30 PO 1105 Trimethoprim/ 1 TAB 09/30 1000 AC 09/30 Sulfamethoxazole PO 10/01 0959 1104 Valacyclovir HCl 1,000 MG DAILY 09/27 1000 AC 09/30 PO 1107 Zolpidem Tartrate 10 MG QPM PRN 09/26 1145 AC PO Results Last 48 Hrs of Labs/Mics: Laboratory Tests 09/30/17 0715: Anion Gap 15, Estimated GFR > 60, BUN/Creatinine Ratio 12.7, CBC w Diff NO MAN DIFF REQ, RBC 3.45 L, MCV 89.2, MCH 30.1, RDW 13.7, MPV 9.1, Gran % 70.8, Lymphocytes % 10.5 L, Monocytes % 18.0 H, Eosinophils % 0.5, Basophils % 0.2, Absolute Granulocytes 2.9, Absolute Lymphocytes 0.4 L, Absolute Monocytes 0.7 H, Absolute Eosinophils 0, Absolute Basophils 0, PUBS MCHC 33.7 Assessment/Plan Assessment/Plan Assessment: 1. Hematuria post TURP 2. CAD with stents in 2015 3. DM 4. Stable normocytic anemia 5. Transient acute renal insufficiency Recommendations: - Continue current medication regimen - COntinue to monitor H/H
--- NOTE | 2017-10-01 07:54 | PN- Housestaff ---
Marcus BRAVO,[facility] 10/01/17 0753: Subjective Follow-up For: Hematuria Weakness Fatigue Subjective: Pt still feels sick. States he had 2-3 episodes of diarrhea last night. States another 2-3 episodes this AM. Pt was suppose to get cystoscopy today but was cancelled by Dr. Victoria. Review of Systems Constitutional: Reports: no symptoms. Cardiovascular: Reports: no symptoms. Respiratory: Reports: no symptoms. Gastrointestinal: Reports: no symptoms. Genitourinary: Reports: hematuria. Musculoskeletal: Reports: no symptoms. Objective Last 24 Hrs of Vital Signs/I&O Vital Signs Date Time Temp Pulse Resp B/P B/P Pulse O2 O2 Flow FiO2 Mean Ox Delivery Rate 10/01 1421 98.7 62 20 128/74 97 Room Air 10/01 1005 52 142/86 10/01 1005 52 142/86 10/01 0625 98.1 60 20 118/60 95 Room Air 09/30 2117 98.3 62 20 110/64 96 Room Air Intake & Output 10/01 1600 10/01 0800 10/01 0000 Intake Total 840 480 Output Total 450 250 Balance -450 840 230 Intake, IV 600 Intake, Oral 240 480 Number 2 2 Bowel Movements Output, Urine 450 250 Patient 165 lb Weight Physical Exam General Appearance: Alert, Cooperative, Mild Distress, Pt appears tired Cardiovascular: Regular Rate, Normal S1, Normal S2 Lungs: Clear to Auscultation, Normal Air Movement Abdomen: Normal Bowel Sounds, Soft, No Tenderness Extremities: 2+ radial pulses Current Medications: Current Medications Sig/Juma Start time Last Medication Dose Route Stop Time Status Admin Acetaminophen 650 MG Q6P PRN 09/26 1145 DCD PO Azithromycin 1,200 MG Wilkerson@1000 09/27 1000 DCD 09/27 PO 1029 Dextrose 25 GM ONCE ONE 10/01 0630 DC 10/01 IV 10/01 0631 0631 Dextrose/Sodium 1,000 ML Q13H 10/01 0000 DC 09/30 Chloride IV 2228 Diclofenac Sodium 1 DILLAN BID PRN 09/26 2200 DCD 09/29 TOP 0905 Escitalopram Oxalate 10 MG DAILY 09/26 1140 DCD 10/01 PO 1002 Heparin Sodium 5,000 UNIT Q8 09/26 1400 DCD 09/30 (Porcine) SC 2228 Hydrocodone Bitart/ 1 TAB Q8P PRN 09/26 1145 DCD Acetaminophen PO Insulin Aspart 0 TIDAC 10/01 1200 DCD SC Insulin Aspart 0 TIDAC 09/26 1200 DC 09/30 SC 10/01 0000 1206 Insulin Detemir 30 UNITS DAILY 09/26 1141 DCD 10/01 SC 1025 Insulin Human Regular 0 Q6 10/01 0000 DC 10/01 SC 0028 Metoprolol Succinate 25 MG DAILY 09/26 1142 DCD 09/30 PO 1106 Nystatin 1 DILLAN BID 10/01 0312 DCD 10/01 TOP 1002 Omeprazole 40 MG DAILY AC 09/27 0700 DCD 10/01 PO 0612 Ondansetron HCl 4 MG Q12P PRN 09/26 1215 DCD IV Oxycodone HCl 5 MG Q6P PRN 09/26 1145 DCD PO Pravastatin Sodium 10 MG DAILY 09/26 1141 DCD 10/01 PO 1007 Tamsulosin HCl 0.4 MG DAILY 09/26 1141 DCD 10/01 PO 1005 Trimethoprim/ 1 TAB 09/30 1000 DC 09/30 Sulfamethoxazole PO 10/01 0959 1104 Valacyclovir HCl 1,000 MG DAILY 09/27 1000 DCD 10/01 PO 1007 Zolpidem Tartrate 10 MG QPM PRN 09/26 1145 DCD PO Last 24 Hrs of Lab/Lam Results Last 24 Hrs of Labs/Mics: Laboratory Tests 10/01/17 0930: PT 14.4 H, INR 1.38 H, APTT 33, CBC w Diff NO MAN DIFF REQ, RBC 3.55 L, MCV 88.4, MCH 29.6, RDW 14.0, MPV 9.8, Gran % 59.5, Lymphocytes % 22.7, Monocytes % 16.2 H, Eosinophils % 1.4, Basophils % 0.2, Absolute Granulocytes 2.5, Absolute Lymphocytes 1.0 L, Absolute Monocytes 0.7 H, Absolute Eosinophils 0.1, Absolute Basophils 0, PUBS MCHC 33.4 10/01/17 0841: Anion Gap 11, Estimated GFR > 60, BUN/Creatinine Ratio 13.3 Microbiology 10/01 734 STOOL: Cryptosporidium Antigen - COLB 10/01 734 STOOL: Giardia Antigen (LAM) - COLB 10/01 734 STOOL: Clostridium difficile Toxin A & B - COLB 10/01 734 STOOL: Stool Culture - COLB Assessment/Plan Assessment: Patient is being admitted for further workup of his borderline fever spikes. Assessment: This is an 82-year-old man, HIV positive for 15 years, noncompliant with antiretroviral therapy until recently, with a recent CD4 count of 22, with a history of coronary artery disease, status post GA and stent, hypertension, hyperlipidemia, diabetes and BPH, was recently discharged from the hospital on August 2017 that was due to urinary tract infection and received a laser TURP presenting for generalized weakness, decreased oral intake, feeling weak/tired and almost a fall down. Plan: #goals of care Discussed with the Daughter that Dr. Victoria stated the patient did not need a cystoscopy today and could be discharged. I discuss to the daughter regarding the lymphadenopathy and possible causes of it regarding lymphoma vs metastatic disease. I explained to her that it would be up to the patient and her regarding how aggressive they will decide to pursue this. The daughter has states multiple times during this admission that she would wants to keep the patient comfortable. #Generalized weakness/Fever of unknown origin Recently discharged for treatment of UTI annd TURP UA: showing small LE but urine culture negative Tmax 100.8 during admssion with intermittent temps of 100+ despite ceftriaxone Ucx negative thus far Repeat ct abd: Prostatomegaly. Left inguinal, iliac and retroperitoneal lymphadenopathy is unchanged. No acute findings within the visualized lower chest, abdomen or pelvis compared to 08/26/2017. There was questions regarding patient being noncompliant with HAART therapy. Patient has been taking home HAART during this admission. -f/u with outpatient urology -Continue Bactrim and Azithromycin and Valacyclovir prophylaxis -discontinued ceftriaxone per ID -cont flomax, -zofran prn #continued hematuria UA+ for blood recent TURP -f/u with outpatient urology -resumed plavix and aspirin for discharge #ORTIZ Cr 1.5 upon admission (1.0 baseline) 1.1 today -cont to monitor #Mild hyper K nad low Na - resolved K 5.3 -> 4.0 Na 136 -> 139 -cont to monitor #diabtes -levemir -novolog sliding scale #HIV -cont valcyclovir, azithromycin, #hx of GA and stent -metropolol, pravastatin, placix, aspirin #home meds -omeprazole, diclofenac gel, zolpidem, pravastain, escitalopram #DVT prophylaxis -heparin #FULL CODE Problem List: 1. Hematuria 2. Weakness Pain Ratin Pain Location: none Pain Goal: Pain 4 or less Pain Plan: pain pathway Tomorrow's Labs & Rationales: none Angela Morrison 10/01/17 1134: Attending MD Review Statement Attending Statement Attending MD Statement: examined this patient, discuss w/resident/PA/CNC SPECIALIST, agreed w/resident/PA/CNC SPECIALIST, discussed with family, reviewed EMR data (avail), discussed with nursing, discussed with case mgmt, reviewed images, amended to note Attending Assessment/Plan: 82M PMH HIV positive for 15 years, noncompliant with antiretroviral therapy until recently, with a recent CD4 count of 22, h/ CAD s/p GA and stent, HTN, HLD , T2DM, BPH s/p recent TURP brought in by family for decreased PO intake, generalized weakness, lethargy, and unable to care for self. Had been diagnosed with UTI during last hospital stay treated with Ceftriaxone. No new complaints reported. ID noted. Urology with cancelled planned procedure. CT with lymphadenopathy unchanged from prior. 1. ORTIZ resolved 2. Hematuria s/p TURP 3. Generalized weakness 4. HIV 5. H/o CAD on DAPT had stent > 1 year ago. Plan - F/U urology. Resume blood thinners, no prostatomegaly. - Urine culture final c/s negative so far - ID consulted and recommend monitor off abx and it appears lymphoma. - HAART as per ID. (discuss with patient) - antiplatelet therapy as per cardiology. - PT eval f/u dc planning. - DVT PPx Patient/daughter explained risks/benefits of further management of evaluaiton of lymph node biopsy or possiblbity of cancer from prostate or other origin, they declined further intervention and agreed for conservative measures and quality of life at his age. This was communicated to patient by urologist and myself.
--- NOTE | 2017-10-01 08:06 | Cons- Urology ---
General Information and HPI Consulting Request Date of Consult: 09/30/17 Requested By: Tamiko BRAVO,Angela Reason for Consult: ELEVATED PSA, LYMPHADENOPATHY ON CT SCAN, GROSS HEMATURIA. Source of Information: patient, old records Exam Limitations: poor historian History of Present Illness: 82 YR OLD WITH HIV, RECENTLY WITH URINARY RETENTION WITH FAILED VOIDING TRIALS DESPITE MAX FLOMAX AND PROSCAR. S/P TURP 09/21/17. PT BROUGHT TO ER WITH LETHARGY, DECREASED PO INTAKE, EXTREME FATIGUE. WAS REPORTED TO HAVE SOME INCONTINENCE AND WET DIAPER. CREATININE WNL. NO REPORT OF HEMATURIA IN ER/ HOSPITAL ADMIT. PT NOTED TO HAVE NAUSEA/VOMITING AT HOME, NO REPORT OF CP/SOB/ PAIN. Allergies/Medications Allergies: Coded Allergies: No Known Allergies (08/26/17) Home Med List: Ammonium Lactate 12 % LOTION 1 DILLAN TOP BID SKIN (Reported) Aspirin (Ecotrin*) 81 MG TABLET.DR 1 TAB PO DAILY HEART HEALTH (Reported) Azithromycin 600 MG TABLET 2 TAB PO QSUN ANTIBIOTIC (Reported) Clopidogrel Bisulfate (Clopidogrel) 75 MG TABLET 1 TAB PO DAILY HEART HEALTH (Reported) Darunavir/Cobicistat (Prezcobix 800 MG-150 MG Tablet) 800 MG-150 MG TABLET 1 TAB PO DAILY HIV (Reported) Desonide (Desowen) 0.05 % CREAM..G. 1 DILLAN TOP BID SKIN (Reported) apply to affected area(s) Diclofenac Sodium (Voltaren) 1 % GEL..GRAM. 1 DILLAN TOP BID PRN PAIN (Reported) apply to affected area(s) Dolutegravir Sodium (Tivicay) 50 MG TABLET 1 TAB PO DAILY HIV (Reported) Escitalopram Oxalate 10 MG TABLET 1 TAB PO DAILY DEPRESSION (Reported) Hydrochlorothiazide 12.5 MG CAPSULE 1 CAP PO DAILY HEART HEALTH (Reported) Insulin Glargine,Hum.rec.anlog (Toujeo Solostar) 300 UNIT/ML (1.5 ML) INSULN.PEN 40 UNIT SC DAILY DM (Reported) Metoprolol Succinate 25 MG TAB 1 TAB PO DAILY HEART HEALTH (Reported) Nut.tx.gluc.intoler,Lac-Fr,Soy (Glucerna) (Unknown Strength) LIQUID 1 BOT PO BID NUTRITIONAL SUPPLEMENT (Reported) Pantoprazole Sodium 40 MG TABLET.DR 1 TAB PO DAILY HEART HEALTH (Reported) Pentoxifylline 400 MG TABLET.ER 1 TAB PO DAILY UNKNOWN (Reported) Pravastatin Sodium 10 MG TABLET 1 TAB PO DAILY HEART HEALTH (Reported) Sitagliptin Phos/Metformin HCl (Janumet 50-1,000 MG Tablet) 50 MG-1,000 MG TABLET 1 TAB PO BID DM (Reported) Sulfamethoxazole/Trimethoprim (Sulfamethoxazole-Tmp Ds Tablet) 800 MG-160 MG TABLET 1 TAB PO Thursday ABT (Reported) Tamsulosin HCl 0.4 MG CAP.ER.24H 1 CAP PO DAILY ENLARGED PROSTATE (Reported) Valacyclovir HCl (Valacyclovir) 1,000 MG TABLET 1 TAB PO DAILY ANTIVIRAL ( Reported) Zolpidem Tartrate 10 MG TABLET 1 TAB PO QPMP SLEEP AIDE (Reported) Current Medications: Current Medications Sig/Juma Start time Last Medication Dose Route Stop Time Status Admin Acetaminophen 650 MG Q6P PRN 09/26 1145 AC PO Aspirin Buffered 81 MG DAILY 09/26 1138 DC 09/30 PO 1104 Azithromycin 1,200 MG Wilkerson@1000 09/27 1000 AC 09/27 PO 1029 Dextrose 25 GM ONCE ONE 10/01 0630 DC 10/01 IV 10/01 0631 0631 Dextrose/Sodium 1,000 ML Q13H 10/01 0000 AC 09/30 Chloride IV 2228 Diclofenac Sodium 1 DILLAN BID PRN 09/26 2200 AC 09/29 TOP 0905 Escitalopram Oxalate 10 MG DAILY 09/26 1140 AC 09/30 PO 1106 Heparin Sodium 5,000 UNIT Q8 09/26 1400 AC 09/30 (Porcine) SC 2228 Hydrocodone Bitart/ 1 TAB Q8P PRN 09/26 1145 AC Acetaminophen PO Insulin Aspart 0 TIDAC 09/26 1200 DC 09/30 SC 10/01 0000 1206 Insulin Detemir 30 UNITS DAILY 09/26 1141 AC 09/30 SC 1000 Insulin Human Regular 0 Q6 10/01 0000 AC 10/01 SC 0028 Metoprolol Succinate 25 MG DAILY 09/26 1142 AC 09/30 PO 1106 Nystatin 1 DILLAN BID 10/01 0312 AC TOP Omeprazole 40 MG DAILY AC 09/27 0700 AC 10/01 PO 0612 Ondansetron HCl 4 MG Q12P PRN 09/26 1215 AC IV Oxycodone HCl 5 MG Q6P PRN 09/26 1145 AC PO Patient Medication 1 ED ONE ONE 09/30 1200 DC 09/30 Teaching ED 09/30 1201 1207 Pravastatin Sodium 10 MG DAILY 09/26 1141 AC 09/30 PO 1106 Tamsulosin HCl 0.4 MG DAILY 09/26 1141 AC 09/30 PO 1105 Trimethoprim/ 1 TAB 09/30 1000 AC 09/30 Sulfamethoxazole PO 10/01 0959 1104 Valacyclovir HCl 1,000 MG DAILY 09/27 1000 AC 09/30 PO 1107 Zolpidem Tartrate 10 MG QPM PRN 09/26 1145 AC PO Past History Medical History Blood Transfusion Hx: No Neurological: NONE EENT: glaucoma Cardiovascular: CAD (s/p stent), hypertension, myocardial infarction Respiratory: NONE Gastrointestinal: GERD Hepatic: NONE Renal: benign prost hyperplasia Musculoskeletal: NONE Psychiatric: depression Endocrine: diabetes Blood Disorders: HIV Cancer(s): NONE 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 Home Services at Home: Home Health Aide, Occupational Therapy, Physical Therapy Smoking Status: Never Smoked Employment History Retired? yes Review of Systems Review of Systems Constitutional: Reports: malaise, weakness. EENTM: Denies: no symptoms. Cardiovascular: Denies: no symptoms. Respiratory: Denies: no symptoms. GI: Reports: constipation. Genitourinary: Reports: hematuria. Skin: Denies: no symptoms. Neurological/Psychological: Reports: depressed. Exam & Diagnostic Data Vital Signs and I&O Vital Signs Date Time Temp Pulse Resp B/P B/P Pulse O2 O2 Flow FiO2 Mean Ox Delivery Rate 10/01 0625 98.1 60 20 118/60 95 Room Air 09/30 2117 98.3 62 20 110/64 96 Room Air 09/30 1449 97.9 63 20 120/62 97 Room Air 09/30 1106 70 112/64 09/30 1105 70 112/64 Intake & Output 10/01 1600 10/01 0800 10/01 0000 09/30 1600 09/30 0800 09/30 0000 Intake Total 840 480 620 Output Total 250 350 600 400 Balance 840 230 270 -600 -400 Intake, IV 600 Intake, Oral 240 480 620 Number 2 2 1 1 Bowel Movements Output, Urine 250 350 600 400 Physical Exam General Appearance: well developed/nourished, no apparent distress Head: atraumatic Eyes: Bilateral: normal appearance. Respiratory: normal breath sounds Cardiovascular: regular rate/rhythm Gastrointestinal: normal bowel sounds, soft, non-tender Rectal: PROSTATE LARGE SMOOTH. NO INDURATION/MASS. Back: no vertebral tenderness Extremities: normal inspection Skin: intact, normal color Reproductive: Normal male genitalia Imaging Results: PATIENT: TRAVIS PRYOR PRESENT AGE: 82 PATIENT ACCOUNT NO: [id number] : 35 LOCATION: [facility] ORDERING PHYSICIAN: Pavan Velazquez MD SERVICE DATE: 09/29/176362 EXAM TYPE: CAT - CT ABD & PELVIS W/O IV CONTRAS EXAMINATION: CT ABDOMEN AND PELVIS WITHOUT CONTRAST CLINICAL INFORMATION: Fever of unknown origin. COMPARISON: CT images of abdomen pelvis from 08/26/2017. TECHNIQUE: Multidetector volumetric imaging was performed from the superior aspect of the liver through the pubic symphysis. Sagittal and coronal reformatted images were obtained on the technologist's workstation. DLP: 381 mGy-cm FINDINGS: LUNG BASES: Again noted is cardiomegaly and atherosclerotic calcification of coronary arteries. No pneumonia or pleural effusion in either lung base. LIVER, GALLBLADDER, AND BILIARY TREE: Unremarkable. PANCREAS: Unremarkable. SPLEEN: Unremarkable. ADRENAL GLANDS: Unremarkable. KIDNEYS AND URETERS: Kidneys have normal size, cortical thickness and cortical attenuation. No nephrolithiasis or hydronephrosis. Again noted is mild bilateral perinephric edema. BLADDER: The urinary bladder is nearly completely empty. The base of the bladder is compressed by the large prostate gland. No bladder calculi. GASTROINTESTINAL TRACT: Bowel loops remain normal in size. Appendix is normal. No evidence of inflammation or obstruction along the gastrointestinal tract. No abdominal abscess, ascites or pneumoperitoneum. ABDOMINAL WALL: There is a very small fat-containing umbilical hernia. Also, fat-containing left inguinal hernia is noted. LYMPH NODES: Again observed is the retroperitoneal, left iliac and left inguinal lymphadenopathy. The largest left para-aortic and left common iliac lymph nodes measure up to 1.3 cm short axis dimension. Largest left inguinal lymph node is 1.7 cm short axis dimension, unchanged. VASCULAR: There is atherosclerotic calcification of the abdominal aorta, iliac and femoral arteries without aneurysm. PELVIC VISCERA: Large prostate gland compresses the bladder base. No pelvic free fluid. OSSEOUS STRUCTURES: Transitional lumbosacral anatomy with lumbarization of S1. Chronic facet osteoarthritis and mild grade 1 anterolisthesis at the L5-S1 level. No suspicious lytic or blastic lesions. A few small sclerotic foci in the pelvis have the appearance of bone islands. IMPRESSION: 1. No specific source of fever is identified. 2. Prostatomegaly. 3. Left inguinal, iliac and retroperitoneal lymphadenopathy is unchanged. Query whether patient has metastatic prostate carcinoma or other known cause of lymphadenopathy. 4. No acute findings within the visualized lower chest, abdomen or pelvis compared to 08/26/2017. Assessment/Plan Assessment/Plan PT WITH GENRALIZED WEAKNESS OF UNKNOWN ORIGIN. UCX NEGATIVE/HEMATURIA POST TURP EXACERBATED BY CURRENT ASPIRIN, PLAVIX, AND HEPARIN. RECOMMEND HOLD ANTI- COAGULATION AND IF ANEMIA WORSENS, OR IF CONTINUES TO HAVE SIGNIFICANT HEMATURIA , WILL CYSTOSCOPE. IN ADDITION PROSTATE BIOPSY ONCE ANTI-COAGULATION IS ELIMINATED. PSA ELEVTION IS FIRST RECORDED ON THIS ADMISSION WHICH LIKELY IS AFFECTED BY RECENT TURP. Consult Acknowledgment - Thank you for your consult request.
--- NOTE | 2017-10-01 10:23 | Patient Discharge Instructions ---
Discharge Instructions General Discharge Information Special Instructions: Please follow up with your pcp in 1-2 weeks. Please follow up with your urologist in 1-2 weeks. Please continue all of your home medications. Acute Coronary Syndrome Inclusion Criteria At DC or during hospital stay patient has or had the following: ACS DIAGNOSIS No Discharge Core Measures Meds if any: Prescribed or Continued at Discharge Meds if any: NOT Prescribed or Continued at Discharge Congestive Heart Failure Inclusion Criteria At DC or during hospital stay patient has or had the following: CHF DIAGNOSIS No Discharge Core Measures Meds if any: Prescribed or Continued at Discharge Meds if any: NOT Prescribed or Continued at Discharge Cerebrovascular accident Inclusion Criteria At DC or during hospital stay patient has or had the following: CVA/TIA Diagnosis No Discharge Core Measures Meds if any: Prescribed or Continued at Discharge Meds if any: NOT Prescribed or Continued at Discharge Venous thromboembolism Inclusion Criteria VTE Diagnosis No VTE Type NONE VTE Confirmed by (Test) NONE Discharge Core Measures - Per Current guidelines, there needs to be overlap - treatment for the first 5 days of Warfarin therapy. - If discharged on Warfarin prior to 5 days of - overlap therapy, the patient will need to be - assessed for post discharge needs including - *Post discharge parental anticoagulation - *Warfarin and/or parental anticoagulation education - *Follow up date to check INR post discharge At least 5 days overlap therapy as Inpatient No Meds if any: Prescribed or Continued at Discharge Note: Overlap Therapy is Warfarin and Anticoagulant Meds if any: NOT Prescribed or Continued at Discharge
[2017-10-01 11:17] LABS: ABSOLUTE BASOPHIL COUNT 0 /CUMM (0.0-0.2); ABSOLUTE EOSINOPHIL COUNT 0.1 /CUMM (0.0-0.7); ABSOLUTE GRANULOCYTE CT 2.5 /CUMM (1.4-6.5); ABSOLUTE MONOCYTE COUNT 0.7 /CUMM (0.10-0.60); BASOPHIL % 0.2 % (0.0-2.0); EOSINOPHIL % 1.4 % (0-5); GRANULOCYTE % 59.5 % (42.2-75.2); HEMATOCRIT 31.4 % (42-52); MEAN CORPUSCULAR HGB 29.6 PG (27.0-31.0); MEAN CORPUSCULAR HGB CONC 33.4 G/DL (33.0-37.0); MEAN CORPUSCULAR VOLUME 88.4 FL (80.0-94.0); MEAN PLATELET VOLUME 9.8 FL (7.4-10.4); PLATELET COUNT 151 /CUMM (130-400); RED BLOOD CELL CT 3.55 /CUMM (4.70-6.10); WHITE BLOOD CELL COUNT 4.3 /CUMM (4.8-10.8)
[2017-10-01] MEDS ORDERED: PREZCOBIX PO (11:17)
[2017-10-01] MEDS ORDERED: TIVICAY PO (11:17)
--- NOTE | 2017-10-01 11:17 | PN- Urology ---
Surgical Brief Attending Note Brief Attending Note: PATIENT FEELING MUCH BETTER. DRINKING FLUIDS AND IS HUNGRY WITHOUT NAUSEA. VSS AFEBRILE >48HRS. VOIDING CLEAR URINE NOW OFF HEPARIN AND PLAVIX. ABD. SOFT. NO CVAT. DISCUSSED PSA AND PROSTATE BIOPSY WITH PT. AND HIS DAUGHTER. BOTH DECLINED. PLAN IS DC HOME PER MED. F/U 1 MONTH FOR REPEAT PSA .
[2017-10-01 11:23] LABS: PT 14.4 SEC (9.4-12.5); PTT 33 SEC (25-37)
[2017-10-01 14:21] VITALS: BP 128/74
--- NOTE | 2017-10-04 21:57 | Discharge Summary ---
See Addendum Visit Information Visit Dates Admission Date: 09/29/17 Discharge Date: 10/01/17 Hospital Course Course Attending Physician: Angela Morrison MD Primary Care Physician: Rupert BRAVO,Jeff [facility] Course: Assessment: This is an 82-year-old man, HIV positive for 15 years, previously noncompliant with antiretroviral therapy until recently, recent CD4 count of 22, history of coronary artery disease, status post NE and stent, hypertension, hyperlipidemia, diabetes and BPH, was recently discharged from the hospital on August 2017 that was due to urinary tract infection and received a laser TURP presenting for generalized weakness, decreased oral intake, feeling weak/tired and almost a fall down. Problems: #goals of care Discussed with the Daughter that Dr. Victoria stated the patient did not need a cystoscopy and could be discharged. I discuss to the daughter regarding the lymphadenopathy and possible causes of it regarding lymphoma vs metastatic disease. I stated that the enlarged LN may be the cause of his intermittent fevers I explained to her that it would be up to the patient and her regarding how aggressive they will decide to pursue this. The daughter has states multiple times during this admission that she would wants to keep the patient comfortable. #Generalized weakness/Fever of unknown origin The patient was recently discharged for treatment of UTI annd TURP. Most revent UA revealed small LE but urine culture was negative. He was treated with IV ceftriaxone which was then stopped as ID felt he did not have a UTI. The patient had intermittent fevers of 100.0+ despite the ceftriaxone. A possible cause of his fever may be the lymphadenopathy which could possible lymphoma. Repeat CT abd during admission revealed prostatomegaly, left inguinal, iliac and retroperitoneal lymphadenopathy is unchanged. No acute findings within the visualized lower chest, abdomen or pelvis compared to 08/26/2017. The patient was advised to f.u with urology as noted above and to continue his prophylaxis and HAART treatment. #continued hematuria UA+ for blood in the setting of recent TURP. Urology stated the patient would have hematuria for 3-4 weeks s/p his TURP. Plavix and aspirin was held during admission but continued for discharge. Advised to follow up with urology as stated above. #ORTIZ - resolved Cr 1.5 initially upon admission (1.0 baseline). Cr improved to baseline with IVF. #Mild hyper K nad low Na - resolved K initially 5.3 and improved to 4.0. Na was initially 136 and improved to 139. Patient was placed on a diabetic diet and IVF. #diabtes The patient was continued on levemir and novolog sliding scale during admission. Resumed his home diabetic meds during discharge. #HIV -continued valcyclovir, azithromycin, and HAART therapy #hx of NE and stent -continued metropolol, pravastatin. Initially held plavix, aspirin in the setting of hematuria and resumed for discharge. #GERD, chronic pain, hld, mental health Continued omeprazole, diclofenac gel, zolpidem, pravastain, escitalopram Allergies: Coded Allergies: No Known Allergies (08/26/17) Disposition Summary Disposition Principal Diagnosis: Fever of unknown origin Additional Diagnosis: Generalized weakness History of HIV Discharge Disposition: home health services Discharge Instructions General Discharge Information Code Status: Full Code Patient's Diet: Diabetic Patient's Activity: Please follow up with your pcp in 1-2 weeks. Please follow up with your urologist in 1-2 weeks. Please continue all of your home medications. Follow-Up Instructions/Appts: As tolerate Medications at Discharge Discharge Medications: Continue taking these medications: Tamsulosin HCl (Tamsulosin HCl) 0.4 MG CAP.ER.24H 1 Capsule ORAL DAILY Qty = 90 Comments: LAST GIVEN 10/01/17 @ 1003 Zolpidem Tartrate (Zolpidem Tartrate) 10 MG TABLET 1 Tablet ORAL Every night as needed Qty = 30 Comments: DID NOT TAKE IN HOSPITAL Aspirin (Ecotrin*) 81 MG TABLET.DR 1 Tablet ORAL DAILY Comments: DID NOT TAKE IN HOSPITAL Azithromycin (Azithromycin) 600 MG TABLET 2 Tablet ORAL EVERY THURSDAY Qty = 24 Comments: DID NOT TAKE IN HOSPITAL Sulfamethoxazole/Trimethoprim (Sulfamethoxazole-Tmp Ds Tablet) 800 MG-160 MG TABLET 1 Tablet ORAL THURSDAY, THURSDAY AND THURSDAY Qty = 30 Comments: Last Taken:09/18/17 Time:0900 Clopidogrel Bisulfate (Clopidogrel) 75 MG TABLET 1 Tablet ORAL DAILY Qty = 90 Comments: DID NOT TAKE IN HOSPITAL Escitalopram Oxalate (Escitalopram Oxalate) 10 MG TABLET 1 Tablet ORAL DAILY Qty = 30 Comments: LAST TAKEN 10/01/17 @ 1003 Hydrochlorothiazide (Hydrochlorothiazide) 12.5 MG CAPSULE 1 Capsule ORAL DAILY Qty = 30 Comments: DID NOT GET IN HOSPITAL Metoprolol Succinate (Metoprolol Succinate) 25 MG TAB 1 Tablet ORAL DAILY Qty = 30 Comments: HELD 10/01/17 FOR PULSE 52 Pantoprazole Sodium (Pantoprazole Sodium) 40 MG TABLET.DR 1 Tablet ORAL DAILY Qty = 90 Comments: DID NOT TAKE IN HOSPITAL Pravastatin Sodium (Pravastatin Sodium) 10 MG TABLET 1 Tablet ORAL DAILY Qty = 90 Comments: LAST GIVEN 10/01/17 @ 1003 Darunavir/Cobicistat (Prezcobix 800 MG-150 MG Tablet) 800 MG-150 MG TABLET 1 Tablet ORAL DAILY Qty = 30 Comments: Last Taken:09/18/16 Time:0900 Sitagliptin Phos/Metformin HCl (Janumet 50-1,000 MG Tablet) 50 MG-1,000 MG TABLET 1 Tablet ORAL TWICE DAILY Qty = 60 Comments: DID NOT TAKE IN HOSPITAL Dolutegravir Sodium (Tivicay) 50 MG TABLET 1 Tablet ORAL DAILY Qty = 30 Comments: LAST TAKEN 10/01/17 @ 1003 Insulin Glargine,Hum.rec.anlog (Tothaddeus Solprema) 300 UNIT/ML (1.5 ML) INSULN.PEN 40 Unit Inject into fatty tissue DAILY Qty = 9 Comments: DID NOT TAKE IN THE HOSPITAL Diclofenac Sodium (Voltaren) 1 % GEL..GRAM. 1 Application On the skin TWICE DAILY as needed for PAIN Qty = 300 Instructions: apply to affected area(s) Comments: DID NOT TAKE IN HOSPITAL Pentoxifylline (Pentoxifylline) 400 MG TABLET.ER 1 Tablet ORAL DAILY Comments: DID NOT TAKE IN HOSPITAL Ammonium Lactate (Ammonium Lactate) 12 % LOTION 1 Application On the skin TWICE DAILY Comments: DID NOT RECEIVE Valacyclovir HCl (Valacyclovir) 1,000 MG TABLET 1 Tablet ORAL DAILY Comments: DID NOT TAKE IN HOSPITAL Desonide (Desowen) 0.05 % CREAM..G. 1 Application On the skin TWICE DAILY Instructions: apply to affected area(s) Comments: DID NOT TAKE IN HOSPITAL Nut.tx.gluc.intoler,Lac-Fr,Soy (Glucerna) (Unknown Strength) LIQUID 1 Bottle ORAL TWICE DAILY Comments: DID NOT TAKE IN HOSPITAL Start taking the following new medications: [Tivicay] 50 Milligram ORAL DAILY Qty = 30 No Refills Comments: LAST GIVEN 10/01/17 @ 1003 [PREZCOBIX] 1 Tablet ORAL DAILY Qty = 30 No Refills Comments: LAST GIVEN 10/01/17 @ 1003 Copies To: Rupert BRAVO,Jeff [facility]
== END 2017-10-01 15:50 | disposition home health service (06) | DRG 682 ==
LOC: ERH 04:06 → 2NB 06:40 → ERHI 06:40 → EDBEDREQ 07:53 → ENRESERV 08:40 → ENTRNSPT 09:38 → EDTRNSPTSTS 09:49 → EDTRNSPT 09:49 → 2NB 09:59 → CMPTRNSPT 10:02 → 2NB 09-28 09:08 → ENTRNSPT 10-01 15:33 → EDTRNSPTSTS 10-01 15:40 → EDTRNSPT 10-01 15:40 → 2NB 10-01 15:50 → CMPTRNSPT 10-01 15:52
PROVIDERS: Internal Medicine Hematology & Oncology; Pediatrics; Urology
DX: N17.9 Acute kidney failure, unspecified (principal); B20 Human immunodeficiency virus [HIV] disease; E11.8 Type 2 diabetes mellitus with unspecified complications; E87.1 Hypo-osmolality and hyponatremia; E87.5 Hyperkalemia; R50.9 Fever, unspecified; R31.0 Gross hematuria; R59.1 Generalized enlarged lymph nodes; Z79.4 Long term (current) use of insulin; Z91.14 Patient's other noncompliance with medication regimen; N40.0 Benign prostatic hyperplasia without lower urinary tract symptoms; E78.5 Hyperlipidemia, unspecified; I25.10 Atherosclerotic heart disease of native coronary artery without angina pectoris; Z95.5 Presence of coronary angioplasty implant and graft; I25.2 Old myocardial infarction; I10 Essential (primary) hypertension; K21.9 Gastro-esophageal reflux disease without esophagitis; G89.29 Other chronic pain; F32.9 Major depressive disorder, single episode, unspecified; Z79.02 Long term (current) use of antithrombotics/antiplatelets; D64.9 Anemia, unspecified
CPT/HCPCS: 2NBSP; 36415; 71045; 74176; 81001; 82436; 87040; 87045; 87086; 87328; 87329; 93005; 93010; 96360; 97110-GP; 97116-GP; 97161-GP; G8978-GP; G8979-GP; G8980-GP; J0696; J1644; J1815; J2405; J3490; J7042; J7060

== ENCOUNTER 2017-10-09 23:54 | Inpatient (IN) | payer OTHER ==
[~2017-10-09] VITALS: Ht 170.2 cm; Wt 72.6 kg
[~2017-10-09 23:54] MED LIST changes: +PREZCOBIX PO; +TIVICAY PO
--- NOTE | 2017-10-10 00:08 | ED MVC/FALL/TRAUMA COMPLAINT ---
History of Present Illness General Chief Complaint: General Adult Stated Complaint: WEAKNESS Source: patient, EMS Exam Limitations: no limitations Vital Signs & Intake/Output Vital Signs & Intake/Output Vital Signs Date Time Temp Pulse Resp B/P B/P Pulse O2 O2 Flow FiO2 Mean Ox Delivery Rate 10/10 0201 99.8 66 18 98/55 95 Room Air 10/10 0002 100.8 70 18 156/92 98 Room Air Allergies Coded Allergies: No Known Allergies (08/26/17) Reconcile Medications Ammonium Lactate 12 % LOTION 1 DILLAN TOP BID SKIN (Reported) Aspirin (Ecotrin*) 81 MG TABLET.DR 1 TAB PO DAILY HEART HEALTH (Reported) Azithromycin 600 MG TABLET 2 TAB PO QSUN ANTIBIOTIC (Reported) Clopidogrel Bisulfate (Clopidogrel) 75 MG TABLET 1 TAB PO DAILY HEART HEALTH (Reported) Darunavir/Cobicistat (Prezcobix 800 MG-150 MG Tablet) 800 MG-150 MG TABLET 1 TAB PO DAILY HIV (Reported) Desonide (Desowen) 0.05 % CREAM..G. 1 DILLAN TOP BID SKIN (Reported) apply to affected area(s) Diclofenac Sodium (Voltaren) 1 % GEL..GRAM. 1 DILLAN TOP BID PRN PAIN (Reported) apply to affected area(s) Dolutegravir Sodium (Tivicay) 50 MG TABLET 1 TAB PO DAILY HIV (Reported) Escitalopram Oxalate 10 MG TABLET 1 TAB PO DAILY DEPRESSION (Reported) Hydrochlorothiazide 12.5 MG CAPSULE 1 CAP PO DAILY HEART HEALTH (Reported) Insulin Glargine,Hum.rec.anlog (Toujeo Solostar) 300 UNIT/ML (1.5 ML) INSULN.PEN 40 UNIT SC DAILY DM (Reported) Metoprolol Succinate 25 MG TAB 1 TAB PO DAILY HEART HEALTH (Reported) Nut.tx.gluc.intoler,Lac-Fr,Soy (Glucerna) (Unknown Strength) LIQUID 1 BOT PO BID NUTRITIONAL SUPPLEMENT (Reported) Pantoprazole Sodium 40 MG TABLET.DR 1 TAB PO DAILY HEART HEALTH (Reported) Pentoxifylline 400 MG TABLET.ER 1 TAB PO DAILY UNKNOWN (Reported) Pravastatin Sodium 10 MG TABLET 1 TAB PO DAILY HEART HEALTH (Reported) [PREZCOBIX] 1 TAB PO DAILY RETROVIRAL Sitagliptin Phos/Metformin HCl (Janumet 50-1,000 MG Tablet) 50 MG-1,000 MG TABLET 1 TAB PO BID DM (Reported) Sulfamethoxazole/Trimethoprim (Sulfamethoxazole-Tmp Ds Tablet) 800 MG-160 MG TABLET 1 TAB PO Thursday ABT (Reported) Tamsulosin HCl 0.4 MG CAP.ER.24H 1 CAP PO DAILY ENLARGED PROSTATE (Reported) [Tivicay] 50 MG PO DAILY RETROVIRAL Valacyclovir HCl (Valacyclovir) 1,000 MG TABLET 1 TAB PO DAILY ANTIVIRAL ( Reported) Zolpidem Tartrate 10 MG TABLET 1 TAB PO QPMP SLEEP AIDE (Reported) Triage Note: PT BIBA FROM HOME. 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 PT UNSURE IF FALL WAS WITNESSED OR NOT. PT ALERT TO PERSON ONLY. PER EMS DAUGHTER WAS AT THE HOUSE AND REPORTED PT HAS BEEN EXHIBITING GENERALIZED WEAKNESS RECENTLY. PT C/O BACK PAIN. DENIES HEADSTRIKE. Triage Nurses Notes Reviewed? yes Onset: Abrupt Duration: hour(s): Timing: single episode today Severity: moderate HPI: 82 yo gentleman in prior good health presents with weakness after a fall out of bed. He shares that he was getting out of bed and fell. He landed on his left hip. He did not hit his head. He did not have dizziness or syncope. He notes left left hip and back pain. He was unable to get up from the floor. He did not hit his head and did not believe that he passed out. He is otherwise well. Past History Travel History Traveled to [place] past 21 day No Medical History Any Pertinent Medical History? 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 No Review of Systems Review of Systems Constitutional: Reports: no symptoms. Eyes: Reports: no symptoms. Ears, Nose, Throat, Mouth: Reports: no symptoms. Respiratory: Reports: no symptoms. Cardiovascular: Reports: no symptoms. Gastrointestinal/Abdominal: Reports: no symptoms. Genitourinary: Reports: no symptoms. Musculoskeletal: Reports: no symptoms. Skin: Reports: no symptoms. Neurological/Psychological: Reports: no symptoms. All Other Systems: Reviewed and Negative Physical Exam Physical Exam General Appearance: well developed/nourished, mild distress Head: atraumatic, normal appearance Eyes: Bilateral: normal appearance. Ears, Nose, Throat, Mouth: hearing grossly normal, moist mucous membrane Neck: normal inspection, supple, full range of motion Respiratory: normal breath sounds, chest non-tender, no respiratory distress, quiet respiration, lungs clear Cardiovascular: regular rate/rhythm Gastrointestinal: normal bowel sounds, soft, non-tender, no organomegaly Back: normal inspection, mild bilateral paravertebral muscle spasm in lumbar spine. no focal bony tenderness. Extremities: minimal tenderness around left hip girdle. no deformity/rotation. warm/well perfused. trace edema bilaterally Neurologic/Psych: no motor/sensory deficits, awake, alert, oriented x 3 Skin: intact, normal color, warm/dry Core Measures ACS in differential dx? No CVA/TIA Diagnosis No Sepsis Present: Yes Sepsis Focused Exam Completed? Yes Progress Differential Diagnosis: C/T/L spine injury, ext injury, ICH Plan of Care: Orders Procedure Date/time Status Heart Healthy Diet 10/[address] in observation 10/10 0317 Active BLOOD CULTURE 10/10 0200 Active Add-on Test (ER Only) 10/10 015 Active RAPID VIRAL INFLUENZA A 10/10 015 Active BLOOD CULTURE 10/10 015 Active PT Evaluate & Treat 10/10 002 Active CULTURE,URINE 10/10 002 Active CASE MANAGEMENT CONSULT 10/10 002 Active URINALYSIS 10/10 8 Complete TROPONIN LEVEL 10/10 000 Complete MAGNESIUM 10/10 000 Complete COMPREHENSIVE METABOLIC PANEL 10/10 8 Complete CBC WITHOUT DIFFERENTIAL 10/10 8 Complete EKG 10/10 8 Active Laboratory Tests 10/10/17 0020: Anion Gap 16, Estimated GFR 39 L, BUN/Creatinine Ratio 14.1, Glucose 93, Calcium 9.2, Magnesium 1.6, Total Bilirubin 0.9, AST 22, ALT 18 L, Alkaline Phosphatase 109, Troponin I 0.01, Total Protein 7.2, Albumin 3.6, Globulin 3.6, Albumin/Globulin Ratio 1.0 L, CBC w Diff NO MAN DIFF REQ, RBC 3.96 L, MCV 87.9 , MCH 29.4, MCHC 33.5, RDW 13.7, MPV 8.9, Gran % 72.6, Lymphocytes % 12.8 L, Monocytes % 13.9 H, Eosinophils % 0.3, Basophils % 0.4, Absolute Granulocytes 5.4, Absolute Lymphocytes 1.0 L, Absolute Monocytes 1.0 H, Absolute Eosinophils 0, Absolute Basophils 0, Urine Color YEL, Urine Clarity CLEAR, Urine pH 6.0, Ur Specific [place] >= 1.030, Urine Protein 30 H, Urine Ketones NEG, Urine Nitrite NEG, Urine Bilirubin NEG, Urine Urobilinogen 0.2, Ur Leukocyte Esterase MOD H, Ur Microscopic SEDIMENT EXAMINED, Urine RBC 50-75 H, Urine WBC > 75 H, Urine Bacteria MANY H, Urine Hemoglobin LARGE H, Urine Glucose NEG Microbiology 10/10 0250 BLOOD: Blood Culture - RECD 10/10 0234 BLOOD: Blood Culture - RECD 10/10 0205 NASOPHARYN: Influenza Virus A & B Rapid Smear - RECD 10/10 0020 URINE ROUT: Urine Culture - RECD Diagnostic Imaging: Viewed by Me: Radiology Read, CT Scan. Discussed w/RAD: Radiology Read, CT Scan. Radiology Impression: PATIENT: TRAVIS PRYOR PRESENT AGE: 82 PATIENT ACCOUNT NO: [id number] : 35 LOCATION: [facility] ORDERING PHYSICIAN: Clint Perez MD SERVICE DATE: 10/10/17 EXAM TYPE: RAD - XRY-AP PELVIS; XRY-HIP 2-3 VIEWS, LEFT; XRY-LUMBOSACRAL SPINE AP & LAT; XRY-PORTABLE CHEST XRAY EXAMINATION: XR CHEST XR LUMBOSACRAL SPINE XR PELVIS XR HIP, LEFT CLINICAL INFORMATION: Fall COMPARISON: Multiple priors, including most recent chest x-ray 09/26/2016 TECHNIQUE: AP view of the chest. 2 views of the lumbosacral spine. AP view of the pelvis. Two views of the left hip. FINDINGS: Chest: Lung volumes are symmetric. No focal consolidation is seen. No evidence of pneumothorax, significant pleural effusion, or pulmonary edema. The cardiomediastinal contour is unremarkable. No acute osseous findings are seen. Lumbosacral spine: There is anatomic alignment of the lumbar vertebral bodies and posterior elements. Vertebral body heights are maintained. Intervertebral disc spaces appear relatively well-preserved. There is facet arthropathy of the lower lumbar spine. No acute fracture is seen. Pelvis/left hip: Alignment across the hips is anatomic with mild degenerative change. No acute fracture is identified. The sacroiliac joints appear intact. IMPRESSION: No acute traumatic findings identified in the chest, lumbosacral spine, pelvis, or left hip. DICTATED BY: Brannon Morales MD DATE/TIME DICTATED:10/10/17148 MOVING WORKER:RAJAN DATE/TIME TRANSCRIBED:10/10/17148 CONFIDENTIAL, DO NOT COPY WITHOUT APPROPRIATE AUTHORIZATION. <Electronically signed in Other Vendor System> SIGNED BY: Brannon Morales MD 10/10/177 CXR Impression: no acute abnormality, no infiltrates, normal size heart, normal mediastinum, PATIENT: TRAVIS PRYOR PRESENT AGE: 82 PATIENT ACCOUNT NO: [id number] : 35 LOCATION: [facility] ORDERING PHYSICIAN: Clint Perez MD SERVICE DATE: 10/10/17 EXAM TYPE: CAT - CT CERV SPINE W&WO IV CONTRAST; CT HEAD WO IV CONTRAST EXAMINATION: NONCONTRAST HEAD CT NONCONTRAST CERVICAL SPINE CT INDICATION INFORMATION: Fall COMPARISON: 09/26/2017 TECHNIQUE: Separate noncontrast CT examinations of the head and cervical spine were performed. Coronal head CT images and coronal and sagittal cervical spine images were created at the technologist workstation. DLP: 626.28, 352.37 mGy-cm FINDINGS: Head: There is no evidence of acute intracranial hemorrhage or territorial infarction. No abnormal mass-effect or midline shift is seen. Gagnon to white matter differentiation is well preserved. No extra-axial fluid collections are identified. The ventricles are normal in size. There is moderate periventricular white matter hypoattenuation consistent with chronic small vessel ischemic disease. Moderate volume loss is noted. The osseous structures and soft tissues are normal. The mastoid air cells and visualized portions of the paranasal sinuses are well-aerated. Cervical spine: There is anatomic alignment of the vertebral bodies and posterior elements. Vertebral body heights are maintained. There is degenerative change at the atlantodens articulation. There are multilevel degenerative changes including endplate osteophytes and facet arthropathy. No evidence of acute fracture. No prevertebral soft tissue swelling. Visualized portions of the lung apices are unremarkable. The thyroid gland is unremarkable. IMPRESSION: 1. Head: No acute intracranial findings. Chronic small vessel ischemic disease and volume loss. 2. Cervical spine: No acute findings identified. Multilevel degenerative changes. DICTATED BY: Brannon Morales MD DATE/TIME DICTATED:10/10/17202 MOVING WORKER:RAJAN DATE/TIME TRANSCRIBED:10/10/17202 CONFIDENTIAL, DO NOT COPY WITHOUT APPROPRIATE AUTHORIZATION. <Electronically signed in Other Vendor System> SIGNED BY: Brannon Morales MD 10/10/17212 Initial ED EKG: normal axis, normal intervals, normal p-waves, normal QRS complex, normal sinus rhythm Departure Departure Disposition: STILL A PATIENT Condition: Stable Clinical Impression Primary Impression: Fall Secondary Impressions: Acute renal failure, Sepsis, UTI (urinary tract infection ) Referrals: Jeff Emery MD (PCP/Family) Departure Forms: Customer Survey General Discharge Information Observation Note Spoke With: Rudolph BRAVO,[facility] Physician Advisor Notified: FORREST GALEAS DO Place Patient In: Non-ED OBS Care Area Rationale for Observation: My rational for observation is as follows . pt with acute renal failure, evidence of uti on u/a, after a fall. pt merits iv fluids, iv abx, PT, OT.
[2017-10-10 00:40] LABS: ABSOLUTE BASOPHIL COUNT 0 /CUMM (0.0-0.2); ABSOLUTE EOSINOPHIL COUNT 0 /CUMM (0.0-0.7); ABSOLUTE GRANULOCYTE CT 5.4 /CUMM (1.4-6.5); BASOPHIL % 0.4 % (0.0-2.0); EOSINOPHIL % 0.3 % (0-5); GRANULOCYTE % 72.6 % (42.2-75.2); HEMATOCRIT 34.8 % (42-52); MEAN CORPUSCULAR HGB 29.4 PG (27.0-31.0); MEAN CORPUSCULAR HGB CONC 33.5 G/DL (33.0-37.0); MEAN CORPUSCULAR VOLUME 87.9 FL (80.0-94.0); MEAN PLATELET VOLUME 8.9 FL (7.4-10.4); PLATELET COUNT 270 /CUMM (130-400); RBC DISTRIBUTION WIDTH 13.7 % (11.5-14.5); RED BLOOD CELL CT 3.96 /CUMM (4.70-6.10); WHITE BLOOD CELL COUNT 7.4 /CUMM (4.8-10.8)
--- NOTE | 2017-10-10 01:57 | RADIOLOGY REPORT ---
EXAMINATION: XR CHEST XR LUMBOSACRAL SPINE XR PELVIS XR HIP, LEFT CLINICAL INFORMATION: Fall COMPARISON: Multiple priors, including most recent chest x-ray 09/26/2016 TECHNIQUE: AP view of the chest. 2 views of the lumbosacral spine. AP view of the pelvis. Two views of the left hip. FINDINGS: Chest: Lung volumes are symmetric. No focal consolidation is seen. No evidence of pneumothorax, significant pleural effusion, or pulmonary edema. The cardiomediastinal contour is unremarkable. No acute osseous findings are seen. Lumbosacral spine: There is anatomic alignment of the lumbar vertebral bodies and posterior elements. Vertebral body heights are maintained. Intervertebral disc spaces appear relatively well-preserved. There is facet arthropathy of the lower lumbar spine. No acute fracture is seen. Pelvis/left hip: Alignment across the hips is anatomic with mild degenerative change. No acute fracture is identified. The sacroiliac joints appear intact. IMPRESSION: No acute traumatic findings identified in the chest, lumbosacral spine, pelvis, or left hip.
--- NOTE | 2017-10-10 02:13 | CT SCAN REPORT ---
EXAMINATION: NONCONTRAST HEAD CT NONCONTRAST CERVICAL SPINE CT INDICATION INFORMATION: Fall COMPARISON: 09/26/2017 TECHNIQUE: Separate noncontrast CT examinations of the head and cervical spine were performed. Coronal head CT images and coronal and sagittal cervical spine images were created at the technologist workstation. DLP: 626.28, 352.37 mGy-cm FINDINGS: Head: There is no evidence of acute intracranial hemorrhage or territorial infarction. No abnormal mass-effect or midline shift is seen. Gagnon to white matter differentiation is well preserved. No extra-axial fluid collections are identified. The ventricles are normal in size. There is moderate periventricular white matter hypoattenuation consistent with chronic small vessel ischemic disease. Moderate volume loss is noted. The osseous structures and soft tissues are normal. The mastoid air cells and visualized portions of the paranasal sinuses are well-aerated. Cervical spine: There is anatomic alignment of the vertebral bodies and posterior elements. Vertebral body heights are maintained. There is degenerative change at the atlantodens articulation. There are multilevel degenerative changes including endplate osteophytes and facet arthropathy. No evidence of acute fracture. No prevertebral soft tissue swelling. Visualized portions of the lung apices are unremarkable. The thyroid gland is unremarkable. IMPRESSION: 1. Head: No acute intracranial findings. Chronic small vessel ischemic disease and volume loss. 2. Cervical spine: No acute findings identified. Multilevel degenerative changes.
--- NOTE | 2017-10-10 05:09 | History & Physical ---
Priyank Knapp 10/10/17 0509: General Information and HPI MD Statement: I have seen and personally examined TRAVIS PRYOR and documented this H&P. The patient is a 82 year old M who presented with a patient stated chief complaint of left hip pain, back pain status post mechanical fall last night Source of Information: patient Exam Limitations: no limitations History of Present Illness: This is a 82-year-old male with past medical history significant for coronary artery disease status post FL, stent placement on dual antiplatelet regimen, 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 He was brought in to the hospital by his daughter after fall. Patient reports fall when he was getting out of bed and landed on his left hip. He reported dizziness prior to the evening. Denied hitting his head. Denies any loss of consciousness, urine incontinence, bowel incontinence, seizures. No confusion after fall. He felt so weak and dizzy which made his daughter to bring him to the emergency room for further evaluation. Patient also reports 7 out of 10 left hip pain status post fall. Stabbing pain, nonradiating, relieved with pain medication. He was recently admitted in August 2017 for UTI status post TURP procedure by Dr. Victoria. He was again admitted in September 2017 for fever of unknown origin mostly from retroperitoneal lymphadenopathy. He has persistent pyuria, monitored off from antibiotics during last admission. Patient has history of HIV, for which he takes prescobix and dolutragravir daily. He is also on prophylactic antibiotics Bactrim Thursday, azithromycin 1200 mg every Thursday, valacyclovir thousand milligrams daily. Last CD4 count was 22. Review of systems was negative for chest pain, palpitations, short of breath, fever, chills, nausea, vomiting, abdominal pain, frequency, urgency, dysuria, constipation. He offers no complaints other than generalized weakness and left hip pain after fall. He denies any smoking, illicit drug abuse, alcohol abuse. He has visiting nurse and physical therapist who comes for help. Uses walker at baseline for ambulation Allergies/Medications Allergies: Coded Allergies: No Known Allergies (08/26/17) Home Med list Ammonium Lactate 12 % LOTION 1 DILLAN TOP BID SKIN (Reported) Aspirin (Ecotrin*) 81 MG TABLET.DR 1 TAB PO DAILY HEART HEALTH (Reported) Azithromycin 600 MG TABLET 2 TAB PO QSUN ANTIBIOTIC (Reported) Clopidogrel Bisulfate (Clopidogrel) 75 MG TABLET 1 TAB PO DAILY HEART HEALTH (Reported) Darunavir/Cobicistat (Prezcobix 800 MG-150 MG Tablet) 800 MG-150 MG TABLET 1 TAB PO DAILY HIV (Reported) Desonide (Desowen) 0.05 % CREAM..G. 1 DILLAN TOP BID SKIN (Reported) apply to affected area(s) Diclofenac Sodium (Voltaren) 1 % GEL..GRAM. 1 DILLAN TOP BID PRN PAIN (Reported) apply to affected area(s) Dolutegravir Sodium (Tivicay) 50 MG TABLET 1 TAB PO DAILY HIV (Reported) Escitalopram Oxalate 10 MG TABLET 1 TAB PO DAILY DEPRESSION (Reported) Hydrochlorothiazide 12.5 MG CAPSULE 1 CAP PO DAILY HEART HEALTH (Reported) Insulin Glargine,Hum.rec.anlog (Toujeo Solostar) 300 UNIT/ML (1.5 ML) INSULN.PEN 40 UNIT SC DAILY DM (Reported) Metoprolol Succinate 25 MG TAB 1 TAB PO DAILY HEART HEALTH (Reported) Nut.tx.gluc.intoler,Lac-Fr,Soy (Glucerna) (Unknown Strength) LIQUID 1 BOT PO BID NUTRITIONAL SUPPLEMENT (Reported) Pantoprazole Sodium 40 MG TABLET.DR 1 TAB PO DAILY HEART HEALTH (Reported) Pentoxifylline 400 MG TABLET.ER 1 TAB PO DAILY UNKNOWN (Reported) Pravastatin Sodium 10 MG TABLET 1 TAB PO DAILY HEART HEALTH (Reported) [PREZCOBIX] 1 TAB PO DAILY RETROVIRAL Sitagliptin Phos/Metformin HCl (Janumet 50-1,000 MG Tablet) 50 MG-1,000 MG TABLET 1 TAB PO BID DM (Reported) Sulfamethoxazole/Trimethoprim (Sulfamethoxazole-Tmp Ds Tablet) 800 MG-160 MG TABLET 1 TAB PO Thursday ABT (Reported) Tamsulosin HCl 0.4 MG CAP.ER.24H 1 CAP PO DAILY ENLARGED PROSTATE (Reported) [Tivicay] 50 MG PO DAILY RETROVIRAL Valacyclovir HCl (Valacyclovir) 1,000 MG TABLET 1 TAB PO DAILY ANTIVIRAL ( Reported) Zolpidem Tartrate 10 MG TABLET 1 TAB PO QPMP SLEEP AIDE (Reported) Compliance With Home Meds: FAIR Past History Travel History Traveled to [place] past 21 day No Medical History Neurological: NONE EENT: glaucoma Cardiovascular: CAD (s/p stent), hypertension, myocardial infarction Respiratory: NONE Gastrointestinal: GERD Hepatic: NONE Renal: benign prost hyperplasia Musculoskeletal: NONE Psychiatric: depression Endocrine: diabetes Blood Disorders: HIV Cancer(s): NONE DIRECTOR CLIENT SERVICES/Reproductive: HIV History of MRSA: No History of VRE: No History of CDIFF: No Influenza Vaccine: 07/15/17 Surgical History Surgical History: non-contributory Past Family/Social History Family History Relations & Conditions if any BROTHER Family hx of lung cancer Psychosocial History Services at Home: Home Health Aide, Occupational Therapy, Physical Therapy Smoking Status: Never Smoked ETOH Use: denies use Illicit Drug Use: denies illicit drug use Review of Systems Review of Systems Constitutional: Reports: weakness. Denies: chills, diaphoresis, fever, malaise, unexplained weight loss. EENTM: Denies: blurred vision, double vision, ear discharge, ear pain. Cardiovascular: Denies: chest pain, edema, orthopena, palpitations, peripheral edema, syncope. Respiratory: Denies: cough, hemoptysis, orthopnea, short of breath, sputum production, stridor, wheezing. GI: Denies: abdominal pain, bloating, distention, nausea, bloody stool, changes in stool. Genitourinary: Denies: discharge, dysuria, frequency, hematuria. Musculoskeletal: Reports: joint pain, muscle pain. Denies: back pain, gout, joint swelling, muscle stiffness, neck pain. Neurological/Psychological: Denies: anxiety, ataxia, confusion, depressed, headache, numbness, tingling, tremors. Exam & Diagnostic Data Last 24 Hrs of Vital Signs/I&O Vital Signs Date Time Temp Pulse Resp B/P B/P Pulse O2 O2 Flow FiO2 Mean Ox Delivery Rate 10/10 0332 99.6 77 20 118/67 95 Room Air 10/10 0201 99.8 66 18 98/55 95 Room Air 10/10 0002 100.8 70 18 156/92 98 Room Air Intake & Output 10/10 0800 10/10 0000 10/09 1600 Intake Total 0 Output Total Balance 0 Intake, Oral 0 Physical Exam General Appearance Alert, Oriented X3, Cooperative, No Acute Distress Skin No Breakdown, No Significant Lesion Skin Temp/Moisture Exam: Warm/Dry Sepsis Skin Exam (color): Normal for Ethnicity HEENT Atraumatic, PERRLA, EOMI, Mucous Membr. moist/pink Neck Supple, No JVD Lymphatic Axillary nl, Cervical nl Cardiovascular Normal S1, Normal S2, No Murmurs Lungs Normal Air Movement Abdomen Normal Bowel Sounds, Soft, No Tenderness Neurological Normal Speech, Strength at 5/5 X4 Ext Extremities No Clubbing, No Cyanosis, No Edema, Normal Pulses, No Tenderness/ Swelling Vascular Normal Pulses, Pulses Symmetrical Sepsis Peripheral Pulse Location: Dorsalis Pedis Sepsis Peripheral Pulse Exam: Normal Sepsis Cap Refill Exam: <2 Sec Last 24 Hrs of Labs/Lam: Laboratory Tests 10/10/17 0020: Anion Gap 16, Estimated GFR 39 L, BUN/Creatinine Ratio 14.1, Glucose 93, Calcium 9.2, Magnesium 1.6, Total Bilirubin 0.9, AST 22, ALT 18 L, Alkaline Phosphatase 109, Troponin I 0.01, Total Protein 7.2, Albumin 3.6, Globulin 3.6, Albumin/Globulin Ratio 1.0 L, CBC w Diff NO MAN DIFF REQ, RBC 3.96 L, MCV 87.9 , MCH 29.4, MCHC 33.5, RDW 13.7, MPV 8.9, Gran % 72.6, Lymphocytes % 12.8 L, Monocytes % 13.9 H, Eosinophils % 0.3, Basophils % 0.4, Absolute Granulocytes 5.4, Absolute Lymphocytes 1.0 L, Absolute Monocytes 1.0 H, Absolute Eosinophils 0, Absolute Basophils 0, Urine Color YEL, Urine Clarity CLEAR, Urine pH 6.0, Ur Specific [place] >= 1.030, Urine Protein 30 H, Urine Ketones NEG, Urine Nitrite NEG, Urine Bilirubin NEG, Urine Urobilinogen 0.2, Ur Leukocyte Esterase MOD H, Ur Microscopic SEDIMENT EXAMINED, Urine RBC 50-75 H, Urine WBC > 75 H, Urine Bacteria MANY H, Urine Hemoglobin LARGE H, Urine Glucose NEG Microbiology 10/10 0250 BLOOD: Blood Culture - RECD 10/10 0234 BLOOD: Blood Culture - RECD 10/10 0205 NASOPHARYN: Influenza Virus A & B Rapid Smear - COMP 10/10 0020 URINE ROUT: Urine Culture - RECD Assessment/Plan Assessment: This is a 82-year-old male with past medical history significant for coronary artery disease status post FL, stent placement on dual antiplatelet regimen, 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 Vitals febrile 100.8, heart rate 70, respiratory rate 18, blood pressure 156/92, saturating at 98 on room air. WBC 7.4, hemoglobin 11.6, hematocrit 34, platelet 270. BUN 24, creatinine 1.7, baseline creatinine 1. Urine analysis positive for esterase, RBC, WBC, bacteria. Troponin negative Flu negative Chest x-ray was normal EKG in sinus rhythm. Assessment and plan 1. Status post fall He was brought in to the hospital by his daughter after fall. Patient reports fall when he was getting out of bed and landed on his left hip. He reported dizziness prior to the evening. Denied hitting his head. Denies any loss of consciousness, urine incontinence, bowel incontinence, seizures. No confusion after fall. He felt so weak and dizzy which made his daughter to bring him to the emergency room for further evaluation. Patient also reports 7 out of 10 left hip pain status post fall. Stabbing pain, nonradiating, relieved with pain medication. * Place Under observation in general medicine floor * Physical therapy consult * Adequate pain management * Hip x-ray, pelvic x-ray, lumbar spine x-ray, lumbar spine CT with normal * Patient may need to go to [facility] given his generalized weakness * Monitor vitals closely. Asymptomatic bacteriuria Patient denies any urinary symptoms like urgency, frequency, dysuria, lower abdominal discomfort. However he was febrile MAXIMUM TEMPERATURE 100.8 in the emergency room. Leukocyte count was normal. Urinalysis showed esterase, WBC, bacteria. However given his recent admission findings he has persistent pyuria, monitored off from antibiotics. * Follow-up urine cultures * Monitor off from antibiotics * Monitor fever and WBC count Acute kidney injury Patient was found to have creatinine 1.7 at the time of admission. His baseline creatinine during previous admission was 1. * Avoid nephrotoxins. * Avoid hydrochlorothiazide * gentle hydration and recheck creatinine in am Retroperitoneal lymphadenopathy Patient has CAT scan abdomen in August 2017 which showed retroperitoneal lymphadenopathy raising concern for lymphoma-which could explain his fever. HIV Patient has history of HIV, for which he takes prescobix and dolutragravir daily. He is also on prophylactic antibiotics Bactrim Thursday, azithromycin 1200 mg every Thursday, valacyclovir thousand milligrams daily. Last CD4 count was 22. * Continue all his home medications Coronary artery disease status post stent placement continue aspirin, statin, Plavix Peripheral vascular disease continue pentoxifylline 400 mg daily Depression continue Lexapro 10 mg daily Hypertension continue metoprolol. Please hold hydrochlorothiazide given acute kidney injury Diabetes mellitus Accu-Cheks, Levemir 40 units daily, sliding scale insulin. GERD continue omeprazole BPH continue tamsulosin Insomnia continue zolpidem as needed for sleep Patient is full code as per recent admission, tried calling Daughter. However couldn't reach. Please confirm CODE STATUS with his daughter tomorrow DVT prophylaxis subcutaneous heparin Regular diet As Ranked By This Provider Problem List: 1. Fever 2. Fall 3. Weakness Core Measures/Misc (05/31) Acute Coronary Syndrome ACS Diagnosis: No Congestive Heart Failure Congestive Heart Failure Diagnosis No Cerebrovascular Accident CVA/TIA Diagnosis: No VTE (View Protocol) VTE Risk Factors Acute Medical Illness No Mechanical VTE Prophylaxis d/t N/A MechProphylax Ordered No VTE Pharm Prophylaxis d/t NA PharmProphylax ordered Sepsis (View protocol) Sepsis Present: No Rudolph BRAVO, [facility] 10/10/17 0552: Attending MD Review Statement Attending Statement Attending MD Statement: examined this patient, discuss w/resident/PA/MANAGER ORACLE, agreed w/resident/PA/MANAGER ORACLE, reviewed images, amended to note Attending Assessment/Plan: 82 yo M with h/o HIV (CD 4 of 22) on meds, CAD s/p stent, HTN, T2DM, BPH s/p TURP (path shows no prostate gland tissue) resulting in significant pyuria, was discharged Oct 01 after being managed for ORTIZ, hematuria and weakness. He also had FUO attributed to underlying retroperitoneal lymphadenopathy related to his HIV ?lymphoma. He is here today s/p mechanical fall and left hip pain. C/o weakness. Denies dizziness, LOC or head strike. He was unable to get off the floor, so EMS was called. VSS. Imaging is negative. Labs only suggestive of ORTIZ (crea 1.7 from normal). His UA is chronically positive. EKG sinus rhythm. Assessment and plan: 1. Mechanical fall, left hip pain 2. Weakness, physical deconditioning 3. ORTIZ 4. Asymptomatic bacteriuria 5. Low grade temps ?underlying lymphoma related to HIV needs further workup with LN biopsy - 23 hour observation on general medicine - Fall precautions - Pain management - PT eval - Case management consult - Gentle hydration - Hold HCTZ - Trend renal functions - Panculture - Watch off antibiotics - Resume HIV meds - prescobix and dolutragravir. - Resume - Bactrim for PJP prophylaxis, Azithro for MARCUS prophylaxis and Valacyclovir for presumed suppresion. - Diabetes management - If persistent fevers, consider ID consult - Goals of care discussion DVT ppx Hep SC. Full code (needs to be discussed with daughter). Observation Initial Note - I have personally examined TRAVIS PRYOR on 10/10/17 at 0552. The disposition of TRAVIS PRYOR is uncertain at this time and before a determination can be made, he requires a period of observation for the following reasons [fall, left hip pain]
[2017-10-10 06:00] VITALS: BP 120/68; BP 122/64
--- NOTE | 2017-10-10 12:50 | PN- Att Addend ---
Attending Addendum Attending Brief Note Patient seen and examined, offers no complaints except that he was feeling tired. Patient is placed on general medicine observation with acute kidney injury as well as generalized weakness likely secondary to dehydration. Vital Signs Date Time Temp Pulse Resp B/P B/P Pulse O2 O2 Flow FiO2 Mean Ox Delivery Rate 10/10 1102 64 122/74 10/10 1059 64 122/74 10/10 0600 97.9 74 18 122/64 97 Room Air 10/10 0332 99.6 77 20 118/67 95 Room Air 10/10 0201 99.8 66 18 98/55 95 Room Air 10/10 0002 100.8 70 18 156/92 98 Room Air on exam; aox3, nad. cv; s1,s2 rrr resp; clear abd; soft, nt, bs+ ext; no edema. Laboratory Tests 10/10 0020 Chemistry Sodium (137 - 145 mmol/L) 138 Potassium (3.5 - 5.1 mmol/L) 5.0 Chloride (98 - 107 mmol/L) 97 L Carbon Dioxide (22 - 30 mmol/L) 25 Anion Gap (5 - 16) 16 BUN (9 - 20 mg/dL) 24 H Creatinine (0.7 - 1.2 mg/dL) 1.7 H Estimated GFR (>60 ml/min) 39 L BUN/Creatinine Ratio (7 - 25 %) 14.1 Glucose (65 - 99 mg/dL) 93 Calcium (8.4 - 10.2 mg/dL) 9.2 Magnesium (1.6 - 2.3 mg/dL) 1.6 Total Bilirubin (0.2 - 1.3 mg/dL) 0.9 AST (17 - 59 U/L) 22 ALT (21 - 72 U/L) 18 L Alkaline Phosphatase (< 127 U/L) 109 Troponin I (<0.11 ng/ml) 0.01 Total Protein (6.3 - 8.2 g/dL) 7.2 Albumin (3.5 - 5.0 g/dL) 3.6 Globulin (1.9 - 4.2 gm/dL) 3.6 Albumin/Globulin Ratio (1.1 - 2.2 %) 1.0 L Hematology CBC w Diff NO MAN DIFF REQ WBC (4.8 - 10.8 /CUMM) 7.4 RBC (4.70 - 6.10 /CUMM) 3.96 L Hgb (14.0 - 18.0 G/DL) 11.6 L Hct (42 - 52 %) 34.8 L MCV (80.0 - 94.0 FL) 87.9 MCH (27.0 - 31.0 PG) 29.4 MCHC (33.0 - 37.0 G/DL) 33.5 RDW (11.5 - 14.5 %) 13.7 Plt Count (130 - 400 /CUMM) 270 MPV (7.4 - 10.4 FL) 8.9 Gran % (42.2 - 75.2 %) 72.6 Lymphocytes % (20.5 - 51.1 %) 12.8 L Monocytes % (1.7 - 9.3 %) 13.9 H Eosinophils % (0 - 5 %) 0.3 Basophils % (0.0 - 2.0 %) 0.4 Absolute Granulocytes (1.4 - 6.5 /CUMM) 5.4 Absolute Lymphocytes (1.2 - 3.4 /CUMM) 1.0 L Absolute Monocytes (0.10 - 0.60 /CUMM) 1.0 H Absolute Eosinophils (0.0 - 0.7 /CUMM) 0 Absolute Basophils (0.0 - 0.2 /CUMM) 0 Urines Urine Color (YEL,AMB,STR) YEL Urine Clarity (CLEAR) CLEAR Urine pH (5.0 - 8.0) 6.0 Ur Specific [place] (1.001 - 1.035) >= 1.030 Urine Protein (NEG,<30 MG/DL) 30 H Urine Ketones (NEG) NEG Urine Nitrite (NEG) NEG Urine Bilirubin (NEG) NEG Urine Urobilinogen (0.1 - 1.0 EU/dl) 0.2 Ur Leukocyte Esterase (NEG) MOD H Ur Microscopic SEDIMENT EXAMINED Urine RBC (0 - 5 /HPF) 50-75 H Urine WBC (0 - 2 /HPF) > 75 H Urine Bacteria (NEG/NONE) MANY H Urine Hemoglobin (NEG) LARGE H Urine Glucose (N MG/DL) NEG A/P; 82 y/o M with pmh sig for coronary artery disease status post [place], stent placement on dual antiplatelet regimen, 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, first with UTI, the with FUO, plantar peritoneal lymphadenopathy. Now placed on general medicine observation with fall, generalized weakness, a CHANDA likely secondary to dehydration. Also had a low-grade temp. Patient getting hydration with IV fluids. Will monitor creatinine. Will avoid any nephrotoxic medications. Continue other current meds. Patient on large dose of levemir, monitor FSG. If strts to get hypoglycemic, will need dose adjustment. DVT px; Hep sq. PT eval.
[2017-10-10 14:12] VITALS: BP 110/72
--- NOTE | 2017-10-10 18:40 | Event Note ---
Event Note Event Note: I was paged that patient's blood sugar level is in 70s although he was asymptomatic. Patient was given 1 IV push of 50% dextrose water. He was on Levemir 40 units daily that was changed to 15 units twice a day from tomorrow. We will follow-up the blood sugar level.
[2017-10-10 22:47] VITALS: BP 116/62
[2017-10-11 06:20] VITALS: BP 114/60
--- NOTE | 2017-10-11 08:25 | PN- Housestaff ---
Subjective Follow-up For: FALL UTI Subjective: as per patients daughter patient looks worse today. he is approriate in his answers to questions but is only AOx1 although language barrier may be to blame partially. patient notes that he feels nauseous today. has not been eating well. denies dysuria although daughter notes patient has been attempting to urinate more often. Review of Systems Constitutional: Reports: weakness. Cardiovascular: Reports: no symptoms. Respiratory: Reports: no symptoms. Gastrointestinal: Reports: nausea. Genitourinary: Reports: frequency. Objective Last 24 Hrs of Vital Signs/I&O Vital Signs Date Time Temp Pulse Resp B/P B/P Pulse O2 O2 Flow FiO2 Mean Ox Delivery Rate 10/11 1537 99.5 10/11 1517 102.9 103 18 108/60 95 10/11 1500 99.5 10/11 1418 102.9 10/11 1047 74 142/68 10/11 1047 74 142/68 10/11 0620 98.1 66 18 114/60 98 Room Air 10/10 2247 101.3 100 20 116/62 94 Room Air Intake & Output 10/11 1600 10/11 0800 10/11 0000 Intake Total 1180 400 Output Total 450 500 200 Balance 730 -100 -200 Intake, IV 500 400 Intake, Oral 680 Number 1 Bowel Movements Output, Urine 450 500 200 Physical Exam General Appearance: Alert, Cooperative, No Acute Distress Skin: No Rashes, No Breakdown, No Significant Lesion Skin Temp/Moisture Exam: Warm/Dry Sepsis Skin Exam (color): Normal for Ethnicity HEENT: Atraumatic Cardiovascular: Regular Rate, Normal S1, Normal S2, No Murmurs Lungs: Clear to Auscultation, Normal Air Movement Abdomen: Normal Bowel Sounds, Soft, No Tenderness, No Hepatospenomegaly Neurological: Normal Speech Extremities: No Clubbing, No Cyanosis, No Edema, Normal Pulses, No Tenderness/ Swelling Vascular: Normal Pulses, Pulses Symmetrical Current Medications: Current Medications Sig/Juma Start time Last Medication Dose Route Stop Time Status Admin Acetaminophen 1,000 MG Q6P PRN 10/10 0500 10/11 IV 1418 Ammonium Lactate 1 DILLAN BID 10/10 1000 AC 10/11 TOP 1045 Aspirin Buffered 81 MG DAILY 10/10 1000 AC 10/11 PO 1043 Azithromycin 1,200 MG Wilkerson@1000 10/11 1000 AC 10/11 PO 1044 Ceftriaxone Sodium 1,000 MG DAILY 10/11 1219 AC 10/11 IV 1403 Clopidogrel Bisulfate 75 MG DAILY 10/10 1000 AC 10/11 PO 1043 Dextrose 25 GM ONCE ONE 10/10 2230 DC 10/10 IV 10/10 2231 2223 Dextrose/Sodium 1,000 ML Q20H 10/10 2230 AC 10/11 Chloride IV 10/12 1429 1618 Escitalopram Oxalate 10 MG DAILY 10/10 1000 AC 10/11 PO 1043 Heparin Sodium 5,000 UNIT Q8 10/10 0600 AC 10/10 (Porcine) SC 0657 Insulin Aspart 0 TIDAC 10/10 0800 AC SC Insulin Detemir 10 UNITS BID 10/11 2200 AC SC Insulin Detemir 15 UNITS BID 10/11 1000 DC 10/11 SC 1042 Metoprolol Succinate 25 MG DAILY 10/10 1000 AC 10/11 PO 1047 Omeprazole 40 MG DAILY AC 10/10 0700 AC 10/10 PO 0655 Ondansetron HCl 4 MG Q6P PRN 10/11 1330 AC 10/11 IV 1418 Oxycodone/ 2 TAB Q6P PRN 10/10 0500 AC Acetaminophen PO Pentoxifylline 400 MG DAILY 10/10 1000 AC 10/11 PO 1043 Pravastatin Sodium 10 MG 1700 10/10 1700 AC 10/11 PO 1618 Sodium Chloride 1,000 ML .[id number] 10/10 0445 DC 10/10 IV 10/11 0724 0516 Tamsulosin HCl 0.4 MG DAILY 10/10 1000 AC 10/11 PO 1047 Trimethoprim/ 1 TAB 10/12 1000 AC Sulfamethoxazole PO 10/13 0959 Valacyclovir HCl 1,000 MG DAILY 10/10 1000 AC 10/11 PO 1043 Zolpidem Tartrate 10 MG QPM PRN 10/10 2200 AC PO Last 24 Hrs of Lab/Lam Results Last 24 Hrs of Labs/Mics: Laboratory Tests 10/11/17 1135: CBC w Diff NO MAN DIFF REQ, RBC 3.70 L, MCV 89.4, MCH 29.6, MCHC 33.1, RDW 14.4 , MPV 8.9, Gran % 72.8, Lymphocytes % 14.9 L, Monocytes % 12.2 H, Eosinophils % 0.1, Basophils % 0, Absolute Granulocytes 4.8, Absolute Lymphocytes 1.0 L, Absolute Monocytes 0.8 H, Absolute Eosinophils 0, Absolute Basophils 0 10/11/17 0829: Anion Gap 14, Estimated GFR > 60, BUN/Creatinine Ratio 15.0 10/11/17 0700: Sodium Cancelled, Potassium Cancelled, Chloride Cancelled, Carbon Dioxide Cancelled, Anion Gap Cancelled, BUN Cancelled, Creatinine Cancelled, BUN/ Creatinine Ratio Cancelled, CBC w Diff Cancelled, WBC Cancelled, RBC Cancelled, Hgb Cancelled, Hct Cancelled, MCV Cancelled, MCH Cancelled, MCHC Cancelled, RDW Cancelled, Plt Count Cancelled, MPV Cancelled Assessment/Plan Assessment: This is a 82-year-old male with past medical history significant for coronary artery disease status post MS, stent placement on dual antiplatelet regimen, 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 Vitals febrile 100.8, heart rate 70, respiratory rate 18, blood pressure 156/92, saturating at 98 on room air. WBC 7.4, hemoglobin 11.6, hematocrit 34, platelet 270. BUN 24, creatinine 1.7, baseline creatinine 1. Urine analysis positive for esterase, RBC, WBC, bacteria. Troponin negative Flu negative Chest x-ray was normal EKG in sinus rhythm. Assessment and plan 1. Status post fall He was brought in to the hospital by his daughter after fall. Patient reports fall when he was getting out of bed and landed on his left hip. He reported dizziness prior to the evening. Denied hitting his head. Denies any loss of consciousness, urine incontinence, bowel incontinence, seizures. No confusion after fall. He felt so weak and dizzy which made his daughter to bring him to the emergency room for further evaluation. Patient also reports 7 out of 10 left hip pain status post fall. Stabbing pain, nonradiating, relieved with pain medication. * Physical therapy consult * Adequate pain management * Hip x-ray, pelvic x-ray, lumbar spine x-ray, lumbar spine CT with normal * Patient may need to go to [facility] given his generalized weakness * Monitor vitals closely. * ORTHOSTATs Asymptomatic NOW SYMPTOMATIC bacteriuria Patient denies any urinary symptoms like urgency, frequency, dysuria, lower abdominal discomfort. However he was febrile MAXIMUM TEMPERATURE 100.8 in the emergency room. Leukocyte count was normal. Urinalysis showed esterase, WBC, bacteria. However given his recent admission findings he has persistent pyuria, monitored off from antibiotics. PATIENT HAS BEEN HAVING URINARY FREQUENCY AND SPIKED FEVER TODAY TO 102. * Follow-up urine cultures * STARTED 1G CEFTRIAXONE * Monitor fever and WBC count * UROLOGY CONSULT PATIENT RECENTLY HAD TURP WITH ROBLERO AND NOW HAS UTI * PER ID, POST VOID RESIDUAL VOLUMES Q8HR Acute kidney injury Patient was found to have creatinine 1.7 at the time of admission. His baseline creatinine during previous admission was 1. * Avoid nephrotoxins. * Avoid hydrochlorothiazide * gentle hydration and recheck creatinine in am Retroperitoneal lymphadenopathy Patient has CAT scan abdomen in August 2017 which showed retroperitoneal lymphadenopathy raising concern for lymphoma-which could explain his fever. HIV Patient has history of HIV, for which he takes prescobix and dolutragravir daily. He is also on prophylactic antibiotics Bactrim Thursday, azithromycin 1200 mg every Thursday, valacyclovir thousand milligrams daily. Last CD4 count was 22. * Continue all his home medications DM Diabetes mellitus Accu-Cheks, Levemir 40 units daily, sliding scale insulin. BLOOD SUGARS HAVE BEEN LOW OVERNIGHT AND PATIENT REQUIRE AMPS OF DEXTROSE. PER ATTENDING WE WILL DECREASE LEVEMIR FROM 15 U BID TO 10 UNITS BID. PATIENT IS NAUSEOUS AND NOT EATING SO WE WILL CONTINUE ON D51/2NS 2 BAGS. Diabetes mellitus Accu-Cheks, sliding scale insulin. CONSIDER ENDO CONSULT IN MORNING IF STILL POOR CONTROL Coronary artery disease status post stent placement continue aspirin, statin, Plavix Peripheral vascular disease continue pentoxifylline 400 mg daily Depression continue Lexapro 10 mg daily Hypertension continue metoprolol. Please hold hydrochlorothiazide given acute kidney injury GERD continue omeprazole BPH continue tamsulosin Insomnia continue zolpidem as needed for sleep FULL CODE DVT prophylaxis subcutaneous heparin Regular diet Problem List: 1. UTI (urinary tract infection) 2. Fall 3. Weakness Pain Ratin Pain Location: left hip Pain Goal: Pain 4 or less Pain Plan: prn Tomorrow's Labs & Rationales: cbc bep
--- NOTE | 2017-10-11 12:03 | Cons- Infect Disease ---
General Information and HPI Consulting Request Date of Consult: 10/11/17 Requested By: Rudolph BRAVO,Guera Reason for Consult: fever Source of Information: patient, primary team Exam Limitations: clinical condition History of Present Illness: 82-year-old male with past medical history significant for coronary artery disease status post NH, stent placement, on dual antiplatelet regimen, HIV with most recent CD4 count 22 on prophylactic antibiotics Bactrim, azithromycin, valacyclovir, Prezcobix, dolutegravir, depression, hypertension, type 2 diabetes mellitus, GERD, BPH s/p TURP, retroperitoneal lymphadenopathy presented to the emergency room on 10/10 w/ L hip pain after sustaining a fall. Patient reported falling when he was getting out of bed, landing on his left hip. Denied loss of consciousness, urine incontinence, or bowel incontinence. No confusion after fall. He felt so weak and dizzy which made his daughter to bring him to the emergency room for further evaluation. While in the hospital developed fever (T max 101.3F); UA obtained (pyuria present and moderate LE positive). Daughter at the bed side; she reports her father having urinary incontinence at times. Currently no burning when voiding. No urethral discharge. Allergies/Medications Allergies: Coded Allergies: No Known Allergies (08/26/17) Home Med List: Ammonium Lactate 12 % LOTION 1 DILLAN TOP BID SKIN (Reported) Aspirin (Ecotrin*) 81 MG TABLET.DR 1 TAB PO DAILY HEART HEALTH (Reported) Azithromycin 600 MG TABLET 2 TAB PO QSUN ANTIBIOTIC (Reported) Clopidogrel Bisulfate (Clopidogrel) 75 MG TABLET 1 TAB PO DAILY HEART HEALTH (Reported) Darunavir/Cobicistat (Prezcobix 800 MG-150 MG Tablet) 800 MG-150 MG TABLET 1 TAB PO DAILY HIV (Reported) Desonide (Desowen) 0.05 % CREAM..G. 1 DILLAN TOP BID SKIN (Reported) apply to affected area(s) Diclofenac Sodium (Voltaren) 1 % GEL..GRAM. 1 DILLAN TOP BID PRN PAIN (Reported) apply to affected area(s) Dolutegravir Sodium (Tivicay) 50 MG TABLET 1 TAB PO DAILY HIV (Reported) Escitalopram Oxalate 10 MG TABLET 1 TAB PO DAILY DEPRESSION (Reported) Hydrochlorothiazide 12.5 MG CAPSULE 1 CAP PO DAILY HEART HEALTH (Reported) Insulin Glargine,Hum.rec.anlog (Toujeo Solostar) 300 UNIT/ML (1.5 ML) INSULN.PEN 40 UNIT SC DAILY DM (Reported) Metoprolol Succinate 25 MG TAB 1 TAB PO DAILY HEART HEALTH (Reported) Nut.tx.gluc.intoler,Lac-Fr,Soy (Glucerna) (Unknown Strength) LIQUID 1 BOT PO BID NUTRITIONAL SUPPLEMENT (Reported) Pantoprazole Sodium 40 MG TABLET.DR 1 TAB PO DAILY HEART HEALTH (Reported) Pentoxifylline 400 MG TABLET.ER 1 TAB PO DAILY UNKNOWN (Reported) Pravastatin Sodium 10 MG TABLET 1 TAB PO DAILY HEART HEALTH (Reported) [PREZCOBIX] 1 TAB PO DAILY RETROVIRAL Sitagliptin Phos/Metformin HCl (Janumet 50-1,000 MG Tablet) 50 MG-1,000 MG TABLET 1 TAB PO BID DM (Reported) Sulfamethoxazole/Trimethoprim (Sulfamethoxazole-Tmp Ds Tablet) 800 MG-160 MG TABLET 1 TAB PO Thursday ABT (Reported) Tamsulosin HCl 0.4 MG CAP.ER.24H 1 CAP PO DAILY ENLARGED PROSTATE (Reported) [Tivicay] 50 MG PO DAILY RETROVIRAL Valacyclovir HCl (Valacyclovir) 1,000 MG TABLET 1 TAB PO DAILY ANTIVIRAL ( Reported) Zolpidem Tartrate 10 MG TABLET 1 TAB PO QPMP SLEEP AIDE (Reported) Current Medications: Current Medications Sig/Juma Start time Last Medication Dose Route Stop Time Status Admin Acetaminophen 1,000 MG Q6P PRN 10/10 0500 AC 10/10 IV 2241 Ammonium Lactate 1 DILLAN BID 10/10 1000 AC 10/11 TOP 1045 Aspirin Buffered 81 MG DAILY 10/10 1000 AC 10/11 PO 1043 Azithromycin 1,200 MG Wilkerson@1000 10/11 1000 AC 10/11 PO 1044 Clopidogrel Bisulfate 75 MG DAILY 10/10 1000 AC 10/11 PO 1043 Dextrose 25 GM ONCE ONE 10/10 2230 DC 10/10 IV 10/10 2231 2223 Dextrose 25 GM ONCE ONE 10/10 1830 DC 10/10 IV 10/10 1831 1837 Dextrose/Sodium 1,000 ML Q20H 10/10 2230 AC 10/10 Chloride IV 10/11 1829 2224 Escitalopram Oxalate 10 MG DAILY 10/10 1000 AC 10/11 PO 1043 Heparin Sodium 5,000 UNIT Q8 10/10 0600 AC 10/10 (Porcine) SC 0657 Insulin Aspart 0 TIDAC 10/10 0800 AC SC Insulin Detemir 10 UNITS BID 10/11 2200 AC SC Insulin Detemir 15 UNITS BID 10/11 1000 DC 10/11 SC 1042 Insulin Detemir 40 UNITS DAILY 10/10 1000 DC 10/10 SC 1101 Metoprolol Succinate 25 MG DAILY 10/10 1000 AC 10/11 PO 1047 Omeprazole 40 MG DAILY AC 10/10 0700 AC 10/10 PO 0655 Oxycodone/ 2 TAB Q6P PRN 10/10 0500 AC Acetaminophen PO Pentoxifylline 400 MG DAILY 10/10 1000 AC 10/11 PO 1043 Pravastatin Sodium 10 MG 1700 10/10 1700 AC 10/10 PO 1809 Sodium Chloride 1,000 ML .[id number] 10/10 0445 DC 10/10 IV 10/11 0724 0516 Tamsulosin HCl 0.4 MG DAILY 10/10 1000 AC 10/11 PO 1047 Trimethoprim/ 1 TAB 10/12 1000 AC Sulfamethoxazole PO 10/13 0959 Valacyclovir HCl 1,000 MG DAILY 10/10 1000 AC 10/11 PO 1043 Zolpidem Tartrate 10 MG QPM PRN 10/10 2200 AC PO Past History Travel History Traveled to [place] past 21 day No Medical History Blood Transfusion Hx: No Neurological: NONE EENT: glaucoma Cardiovascular: CAD (s/p stent), hypertension, myocardial infarction Respiratory: NONE Gastrointestinal: GERD Hepatic: NONE Renal: benign prost hyperplasia Musculoskeletal: NONE Psychiatric: depression Endocrine: diabetes Blood Disorders: HIV Cancer(s): NONE LEAD DATA ARCHITECT/Reproductive: HIV History of MRSA: No History of VRE: No History of CDIFF: No Isolation History: Standard Influenza Vaccine: 07/15/17 Surgical History Surgical History: non-contributory Family History Relations & Conditions If Any: BROTHER Family hx of lung cancer Psychosocial History Services at Home: Home Health Aide, Occupational Therapy, Physical Therapy Smoking Status: Never Smoked ETOH Use: denies use Illicit Drug Use: denies illicit drug use Review of Systems Comments 12 points reviewed as noted, otherwise negative. Exam & Diagnostic Data Last 24 Hrs of Vital Signs/I&O Vital Signs Date Time Temp Pulse Resp B/P B/P Pulse O2 O2 Flow FiO2 Mean Ox Delivery Rate 10/11 1047 74 142/68 10/11 1047 74 142/68 10/11 0620 98.1 66 18 114/60 98 Room Air 10/10 2247 101.3 100 20 116/62 94 Room Air 10/10 1412 99.9 101 20 110/72 95 Intake & Output 10/11 1600 10/11 0800 10/11 0000 Intake Total 400 Output Total 500 200 Balance -100 -200 Intake, IV 400 Number 1 Bowel Movements Output, Urine 500 200 Physical Exam Other Physical Findings: General Appearance Alert, Oriented X3, Cooperative, No Acute Distress Skin No Breakdown, No Significant Lesion Skin Temp/Moisture Exam: Warm/Dry HEENT Atraumatic, PERRLA, EOMI, Mucous Membr. moist/pink Neck Supple, No JVD Lymphatic Cervical nl Cardiovascular Normal S1, Normal S2, No Murmur/rub/gallop Lungs Normal Air Movement Abdomen Normal Bowel Sounds, Soft, No CVA or supropubic Tenderness Neurological Normal Speech, Strength at 5/5 X4 Extr Extremities No Clubbing, No Cyanosis, No Edema, Normal Pulses, No Tenderness/ Swelling Last 24 Hours of Lab Results: Laboratory Tests 10/11 10/11 1135 0829 Chemistry Sodium (137 - 145 mmol/L) 136 L Potassium (3.5 - 5.1 mmol/L) 3.9 Chloride (98 - 107 mmol/L) 104 Carbon Dioxide (22 - 30 mmol/L) 18 L Anion Gap (5 - 16) 14 BUN (9 - 20 mg/dL) 15 Creatinine (0.7 - 1.2 mg/dL) 1.0 Estimated GFR (>60 ml/min) > 60 BUN/Creatinine Ratio (7 - 25 %) 15.0 Hematology CBC w Diff Pending WBC Pending RBC Pending Hgb Pending Hct Pending MCV Pending MCH Pending MCHC Pending RDW Pending Plt Count Pending MPV Pending Last 24 Hours of Lam Results: atient : TRAVIS PRYOR Acct: [id number] DR[facility] Birthdate: [birth year] Age/Sex: 82/M Unit: [id number] Loc: 2NA 224- 02 Status : ADM Monique SPEC #: [id number] KEENAN: 10/10/17 STATUS: COMP RECD: 10/10/[address]: Chris BRAVO, Clint Aguirre [facility] 10/10/17-0153 [facility] DR: Rupert BRAVO,Jeff Villa [facility]: BODY BUILDER ORDERED: QUIK FLU AB Procedure Result > RAPID VIRAL INFLUENZA A/B Final 10/10/17 NEGATIVE FOR INFLUENZA A & B Note Rapid influenza diagnostic tests have low to moderate sensitivity compared to viral culture or RT-PCR. A negative result does not exclude influenza virus infection. If influenza is circulating in your community, a diagnosis of influenza should be considered based on patient's clinical presentation and empiric antiviral treatment should be considered, if indicated. FOR ER PATIENTS WHO ARE ADMITTED AND HEALTHCARE WORKERS, IF THE RAPID FLU IS NEGATIVE AND PATIENT HAS INFLUENZA LIKE ILLNESS, PLEASE CALL MICROBIOLOGY DEPT. [phone] FOR RT-PCR SENDOUT. PLEASE FOLLOW ISOLATION PRECAUTIONS FOR ALL SUSPECTED INFLUENZA CASES. Diagnostic Data Recent Imaging Findings: CXR CLINICAL INFORMATION: Fall COMPARISON: Multiple priors, including most recent chest x-ray 09/26/2016 TECHNIQUE: AP view of the chest. 2 views of the lumbosacral spine. AP view of the pelvis. Two views of the left hip. FINDINGS: Chest: Lung volumes are symmetric. No focal consolidation is seen. No evidence of pneumothorax, significant pleural effusion, or pulmonary edema. The cardiomediastinal contour is unremarkable. No acute osseous findings are seen. Lumbosacral spine: There is anatomic alignment of the lumbar vertebral bodies and posterior elements. Vertebral body heights are maintained. Intervertebral disc spaces appear relatively well-preserved. There is facet arthropathy of the lower lumbar spine. No acute fracture is seen. Pelvis/left hip: Alignment across the hips is anatomic with mild degenerative change. No acute fracture is identified. The sacroiliac joints appear intact. IMPRESSION: No acute traumatic findings identified in the chest, lumbosacral spine, pelvis, or left hip. DICTATED BY: Brannon Morales MD DATE/TIME DICTATED:10/10/17148 WANIGAN CLERK:RAJAN DATE/TIME TRANSCRIBED:10/10/17148 CONFIDENTIAL, DO NOT COPY WITHOUT APPROPRIATE AUTHORIZATION. <Electronically signed in Other Vendor System> SIGNED BY: Brannon Morales MD 10/10/17 0157 Assessment/Plan Assessment/Plan Impression: 82-year-old male known with CAD/NH, /p stenting, HIV with most recent CD4 count 22 on prophylactic antibiotics Bactrim, azithromycin, valacyclovir, Prezcobix, dolutegravir, depression, hypertension, diabetes mellitus type 2 , GERD, BPH, recurrent URTI's and retroperitoneal lymphadenopathy admityted on 10/10 w/ L hip pain after sustaining a fall. Fever Eval UTI ORTIZ/dehydration (kidney function much improved) Suggestion: 1. Empiric treatment w/ Ceftriaxone 1 gm daily. Patient w/ non toxic appearance; will not cover empirically for possible Ps. aeruginosa infection at this time. Please call if spiking fever again. 2. F/U UC/BC results (of note negative cultures while receiving Bactrim for PCP prophylaxis possible). 3. Monitor PVR q 8 h; daughter requests urology consult w/ Dr. Victoria. Consult Acknowledgment - Thank you for your consult request.
[2017-10-11 12:21] LABS: ABSOLUTE BASOPHIL COUNT 0 /CUMM (0.0-0.2); ABSOLUTE EOSINOPHIL COUNT 0 /CUMM (0.0-0.7); ABSOLUTE GRANULOCYTE CT 4.8 /CUMM (1.4-6.5); ABSOLUTE MONOCYTE COUNT 0.8 /CUMM (0.10-0.60); BASOPHIL % 0 % (0.0-2.0); EOSINOPHIL % 0.1 % (0-5); GRANULOCYTE % 72.8 % (42.2-75.2); HEMATOCRIT 33.1 % (42-52); MEAN CORPUSCULAR HGB 29.6 PG (27.0-31.0); MEAN CORPUSCULAR HGB CONC 33.1 G/DL (33.0-37.0); MEAN CORPUSCULAR VOLUME 89.4 FL (80.0-94.0); MEAN PLATELET VOLUME 8.9 FL (7.4-10.4); PLATELET COUNT 227 /CUMM (130-400); RBC DISTRIBUTION WIDTH 14.4 % (11.5-14.5); WHITE BLOOD CELL COUNT 6.5 /CUMM (4.8-10.8)
--- NOTE | 2017-10-11 12:48 | PN- Att Addend ---
Attending Addendum Attending Brief Note Patient seen and examined, not feeling well. He feels dizzy. He was hypoglycemic and has a fever spike this morning. Creatinine has come back to normal. Vital Signs Date Time Temp Pulse Resp B/P B/P Pulse O2 O2 Flow FiO2 Mean Ox Delivery Rate 10/11 1047 74 142/68 10/11 1047 74 142/68 10/11 0620 98.1 66 18 114/60 98 Room Air 10/10 2247 101.3 100 20 116/62 94 Room Air 10/10 1412 99.9 101 20 110/72 95 on exam; aox3, nad. cv; s1, s2, rrr resp; clear abd; soft, nt, bs+ ext; no edema Laboratory Tests 10/11 10/11 1135 0829 Chemistry Sodium (137 - 145 mmol/L) 136 L Potassium (3.5 - 5.1 mmol/L) 3.9 Chloride (98 - 107 mmol/L) 104 Carbon Dioxide (22 - 30 mmol/L) 18 L Anion Gap (5 - 16) 14 BUN (9 - 20 mg/dL) 15 Creatinine (0.7 - 1.2 mg/dL) 1.0 Estimated GFR (>60 ml/min) > 60 BUN/Creatinine Ratio (7 - 25 %) 15.0 Hematology CBC w Diff NO MAN DIFF REQ WBC (4.8 - 10.8 /CUMM) 6.5 RBC (4.70 - 6.10 /CUMM) 3.70 L Hgb (14.0 - 18.0 G/DL) 10.9 L Hct (42 - 52 %) 33.1 L MCV (80.0 - 94.0 FL) 89.4 MCH (27.0 - 31.0 PG) 29.6 MCHC (33.0 - 37.0 G/DL) 33.1 RDW (11.5 - 14.5 %) 14.4 Plt Count (130 - 400 /CUMM) 227 MPV (7.4 - 10.4 FL) 8.9 Gran % (42.2 - 75.2 %) 72.8 Lymphocytes % (20.5 - 51.1 %) 14.9 L Monocytes % (1.7 - 9.3 %) 12.2 H Eosinophils % (0 - 5 %) 0.1 Basophils % (0.0 - 2.0 %) 0 Absolute Granulocytes (1.4 - 6.5 /CUMM) 4.8 Absolute Lymphocytes (1.2 - 3.4 /CUMM) 1.0 L Absolute Monocytes (0.10 - 0.60 /CUMM) 0.8 H Absolute Eosinophils (0.0 - 0.7 /CUMM) 0 Absolute Basophils (0.0 - 0.2 /CUMM) 0 A/P; 82 y/o M with pmh sig for coronary artery disease status post [place], stent placement on dual antiplatelet regimen, HIV with CD4 count 22 on prophylactic antibiotics Bactrim, azithromycin, valacyclovir, Prezcobix, dolutegravir, depression, hypertension, type 2 diabetes mellitus, GERD, BPH, recently admitted twice, first with UTI, then with FUO, retro peritoneal lymphadenopathy. Now placed on general medicine observation with fall, generalized weakness, a ORTIZ likely secondary to dehydration. Patient spiked a fever of 101 this morning. Also he was hypoglycemic. Continues to feel dizzy and weak. Creatinine is normal today after IV hydration. Please check orthostatics. We had decreased the dose of his Levemir. But monitor blood sugars. Please consult ID. Patient has been kept on his prophylactic antiviral and antibacterial medications. Please follow further ID recommendations for antibiotics. DVT prophylaxis: Heparin subcutaneous. Patient needs PT eval.
[2017-10-11 15:17] VITALS: BP 108/60
[2017-10-11 22:47] VITALS: BP 126/70
[2017-10-12 06:20] VITALS: BP 136/68
--- NOTE | 2017-10-12 07:26 | PN- Housestaff ---
Marcus BRAVO,[facility] 10/12/17 0726: Subjective Follow-up For: fall hx uti astmptomatic bacteruria Subjective: No acute events overnight. Still has L hip pain. States some sweats and slight fever last night. Feels slightly dizzy. Does not state any subjective weakness. Review of Systems Constitutional: Reports: chills, fever. Cardiovascular: Reports: no symptoms. Respiratory: Reports: no symptoms. Gastrointestinal: Reports: no symptoms. Musculoskeletal: Reports: see HPI, joint pain. Neurological/Psychological: Reports: see HPI (dizziness). Objective Last 24 Hrs of Vital Signs/I&O Vital Signs Date Time Temp Pulse Resp B/P B/P Pulse O2 O2 Flow FiO2 Mean Ox Delivery Rate 10/12 0703 100.5 10/12 0620 100.5 95 20 136/68 96 Room Air 10/11 2247 98.3 78 20 126/70 98 Room Air 10/11 1537 99.5 10/11 1517 102.9 103 18 108/60 95 10/11 1500 99.5 10/11 1418 102.9 10/11 1047 74 142/68 10/11 1047 74 142/68 Intake & Output 10/12 1600 10/12 0800 10/12 0000 Intake Total 830 Output Total 200 200 101 Balance -200 630 -101 Intake, IV 350 Intake, Oral 480 Number 1 Bowel Movements Output, Stool 1 Output, Urine 200 200 100 Physical Exam General Appearance: Alert, Oriented X3, Cooperative, No Acute Distress Cardiovascular: tachycardia Lungs: Clear to Auscultation, Normal Air Movement Abdomen: Normal Bowel Sounds, Soft, No Tenderness Extremities: L hip pain Vascular: 2+ radial pulses Current Medications: Current Medications Sig/Juma Start time Last Medication Dose Route Stop Time Status Admin Acetaminophen 1,000 MG .STK-MED ONE 10/11 1413 DC IV 10/11 1414 Acetaminophen 1,000 MG Q6P PRN 10/10 0500 10/12 IV 0703 Ammonium Lactate 1 DILLAN BID 10/10 1000 AC 10/11 TOP 2132 Aspirin Buffered 81 MG DAILY 10/10 1000 AC 10/11 PO 1043 Azithromycin 1,200 MG Wilkerson@1000 10/11 1000 AC 10/11 PO 1044 Ceftriaxone Sodium 1,000 MG DAILY 10/11 1219 AC 10/11 IV 1403 Clopidogrel Bisulfate 75 MG DAILY 10/10 1000 AC 10/11 PO 1043 Dextrose/Sodium 1,000 ML Q20H 10/10 2230 AC 10/11 Chloride IV 10/12 1429 1618 Escitalopram Oxalate 10 MG DAILY 10/10 1000 AC 10/11 PO 1043 Heparin Sodium 5,000 UNIT Q8 10/10 0600 AC 10/12 (Porcine) SC 0655 Insulin Aspart 0 TIDAC 10/10 0800 AC SC Insulin Detemir 10 UNITS BID 10/11 2200 AC 10/11 SC 2133 Insulin Detemir 15 UNITS BID 10/11 1000 DC 10/11 SC 1042 Metoprolol Succinate 25 MG DAILY 10/10 1000 AC 10/11 PO 1047 Omeprazole 40 MG DAILY AC 10/10 0700 AC 10/12 PO 0659 Ondansetron HCl 4 MG Q6P PRN 10/11 1330 AC 10/11 IV 1418 Oxycodone/ 2 TAB Q6P PRN 10/10 0500 AC Acetaminophen PO Pentoxifylline 400 MG DAILY 10/10 1000 AC 10/11 PO 1043 Pravastatin Sodium 10 MG 1700 10/10 1700 AC 10/11 PO 1618 Tamsulosin HCl 0.4 MG DAILY 10/10 1000 AC 10/11 PO 1047 Trimethoprim/ 1 TAB 10/12 1000 AC Sulfamethoxazole PO 10/13 0959 Valacyclovir HCl 1,000 MG DAILY 10/10 1000 AC 10/11 PO 1043 Zolpidem Tartrate 10 MG QPM PRN 10/10 2200 AC PO Last 24 Hrs of Lab/Lam Results Last 24 Hrs of Labs/Mics: Laboratory Tests 10/12/17 0847: Sodium Pending, Potassium Pending, Chloride Pending, Carbon Dioxide Pending, Anion Gap Pending, BUN Pending, Creatinine Pending, BUN/Creatinine Ratio Pending , CBC w Diff Pending, WBC Pending, RBC Pending, Hgb Pending, Hct Pending, MCV Pending, MCH Pending, MCHC Pending, RDW Pending, Plt Count Pending, MPV Pending 10/11/17 1135: CBC w Diff NO MAN DIFF REQ, RBC 3.70 L, MCV 89.4, MCH 29.6, MCHC 33.1, RDW 14.4 , MPV 8.9, Gran % 72.8, Lymphocytes % 14.9 L, Monocytes % 12.2 H, Eosinophils % 0.1, Basophils % 0, Absolute Granulocytes 4.8, Absolute Lymphocytes 1.0 L, Absolute Monocytes 0.8 H, Absolute Eosinophils 0, Absolute Basophils 0 Assessment/Plan Assessment: A: 82-year-old male with past medical history significant for coronary artery disease status post SD, stent placement on dual antiplatelet regimen, HIV with CD4 count 22 on prophylactic antibiotics Bactrim, azithromycin, valacyclovir, Prezcobix, dolutegravir, depression, hypertension, type 2 diabetes mellitus, GERD, BPH, recently discharged for fever of unknown origin, retroperitoneal lymphadenopathy questionable lymphoma presenting to the emergency room for left hip pain status post fall x2. P #fall Pt reports fall x2 and landed on L hip. He reported dizziness prior to the evening. Denied hitting his head. Denies any loss of consciousness, urine incontinence, bowel incontinence, seizures. Hip x-ray, pelvic x-ray, lumbar spine x-ray, head/ cervical spine CT negative for acute fractures VitD /B12 levels low -start vit D and multivtiamin supplmentation -PT recommends home PT -cont pain control -f/u ortho stats #FUO Tmax 24hrs: 102.9 Patient was last admitted for FUO. Possible cause maybe due to the retroperitoneal, left iliac and left inguinal lymphadenopathy Ucx and blood cx negative thus far Rapid fabián negative -repeat ct abd pelvis with po and IV contrast -dc ceftriaxone per ID -continue HIV medications #Asymptomatic bacteriuria States minor dysuria Denies urgency, frequency, lower abdominal discomfort. UA + for moderate LE and WBC >75 Urine cx negative -stop ceftriaxone per ID -NPO @ midnight for CT abd/pelvis with oral and IV contrast, renal US\ #Acute kidney injury Initial Cr 1.7 (baseline 1.0) Latest Cr 1.3 -cont to monitor -Avoid nephrotoxins. -Avoid hydrochlorothiazide #HIV Last CD4 count 22 -continue prescobix and dolutragravir daily. -continue Bactrim, azithromycin, valacyclovir #DM Blood sugars running from 72-200 despite decreasing levemir to 10 units BID -f/u endocrinology consult #Coronary artery disease status post stent placement -continue aspirin, statin, Plavix #Peripheral vascular disease -continue pentoxifylline 400 mg daily #Depression -continue Lexapro 10 mg daily #Hypertension -continue metoprolol. -hold hydrochlorothiazide #GERD -continue omeprazole #BPH s/p TURP -continue tamsulosin #Insomnia -continue zolpidem as needed for sleep #FULL CODE #DVT prophylaxis subcutaneous heparin NPO @ midnight tonight then resume diabetic diet Problem List: 1. Fall 2. Diabetes 3. ORTIZ (acute kidney injury) 4. Fever of unknown origin Pain Ratin Pain Location: L hip Pain Goal: Pain 4 or less Pain Plan: pain pathway Tomorrow's Labs & Rationales: cbc bep Angela Mrorison 10/12/17 1402: Attending MD Review Statement Attending Statement Attending MD Statement: examined this patient, discuss w/resident/PA/MOLD HOISTER, agreed w/resident/PA/MOLD HOISTER, discussed with family, reviewed EMR data (avail), discussed with nursing, discussed with case mgmt, reviewed images, amended to note Attending Assessment/Plan: 82M PMH HIV positive for 15 years, noncompliant with antiretroviral therapy until recently, with a recent CD4 count of 22, h/ CAD s/p SD and stent, HTN, HLD , T2DM, BPH s/p recent TURP brought in by family for fall, generalized weakness, hip pain and asymptomatic bacteriuria, weekend events with hypoglycemia. Patient seen/examined bedside. Daughter bedside. Patient is febrile. Denies chest pain, shortness of breath, nasuea, vomiting. 1. ORTIZ improving 2. H/O Hematuria s/p TUR 3. Generalized weakness 4. 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 H/o CAD on DAPT had stent > 1 year ago. 6. Fever work up ongoing. ?UTI Plan - Consult ID and urology. - Urine culture final c/s negative so far, empiric ceftriaxone. abx as per ID. - HAART as per ID. - antiplatelet therapy as per cardiology. - PT eval consult for dc planning. - DVT PPx. Patient changed to inpatient status from observation for ongoing w/u fever. ID consult. I anticipate >2 midnight stay 2/2 acute clinical problem.
[2017-10-12 09:55] LABS: ABSOLUTE BASOPHIL COUNT 0 /CUMM (0.0-0.2); ABSOLUTE EOSINOPHIL COUNT 0 /CUMM (0.0-0.7); ABSOLUTE GRANULOCYTE CT 4.3 /CUMM (1.4-6.5); ABSOLUTE LYMPH COUNT 0.5 /CUMM (1.2-3.4); ABSOLUTE MONOCYTE COUNT 0.7 /CUMM (0.10-0.60); BASOPHIL % 0 % (0.0-2.0); EOSINOPHIL % 0 % (0-5); GRANULOCYTE % 78.2 % (42.2-75.2); HEMATOCRIT 30.3 % (42-52); MEAN CORPUSCULAR HGB 29.6 PG (27.0-31.0); MEAN CORPUSCULAR HGB CONC 33.4 G/DL (33.0-37.0); MEAN CORPUSCULAR VOLUME 88.6 FL (80.0-94.0); MEAN PLATELET VOLUME 9.4 FL (7.4-10.4); PLATELET COUNT 183 /CUMM (130-400); RBC DISTRIBUTION WIDTH 14.4 % (11.5-14.5); RED BLOOD CELL CT 3.42 /CUMM (4.70-6.10); WHITE BLOOD CELL COUNT 5.5 /CUMM (4.8-10.8)
[2017-10-12 14:14] VITALS: BP 120/64
--- NOTE | 2017-10-12 14:14 | Cons- Urology ---
General Information and HPI Consulting Request Date of Consult: 10/12/17 Requested By: Tamiko BRAVO,Angela Reason for Consult: ARF/Urosepsis Source of Information: patient, old records Exam Limitations: no limitations History of Present Illness: 82 yr old with AIDS on meds. recently had TURP and voiding well overall with occassional urge incontinence:comfortable. Recently fell and had left hip pain. Pt reportedly with ARF of pre-renal/dehydration etiology. UCx negative. Allergies/Medications Allergies: Coded Allergies: No Known Allergies (08/26/17) Home Med List: Ammonium Lactate 12 % LOTION 1 DILLAN TOP BID SKIN (Reported) Aspirin (Ecotrin*) 81 MG TABLET.DR 1 TAB PO DAILY HEART HEALTH (Reported) Azithromycin 600 MG TABLET 2 TAB PO QSUN ANTIBIOTIC (Reported) Clopidogrel Bisulfate (Clopidogrel) 75 MG TABLET 1 TAB PO DAILY HEART HEALTH (Reported) Darunavir/Cobicistat (Prezcobix 800 MG-150 MG Tablet) 800 MG-150 MG TABLET 1 TAB PO DAILY HIV (Reported) Desonide (Desowen) 0.05 % CREAM..G. 1 DILLAN TOP BID SKIN (Reported) apply to affected area(s) Diclofenac Sodium (Voltaren) 1 % GEL..GRAM. 1 DILLAN TOP BID PRN PAIN (Reported) apply to affected area(s) Dolutegravir Sodium (Tivicay) 50 MG TABLET 1 TAB PO DAILY HIV (Reported) Escitalopram Oxalate 10 MG TABLET 1 TAB PO DAILY DEPRESSION (Reported) Hydrochlorothiazide 12.5 MG CAPSULE 1 CAP PO DAILY HEART HEALTH (Reported) Insulin Glargine,Hum.rec.anlog (Alexia Mireles) 300 UNIT/ML (1.5 ML) INSULN.PEN 40 UNIT SC DAILY DM (Reported) Metoprolol Succinate 25 MG TAB 1 TAB PO DAILY HEART HEALTH (Reported) Nut.tx.gluc.intoler,Lac-Fr,Soy (Glucerna) (Unknown Strength) LIQUID 1 BOT PO BID NUTRITIONAL SUPPLEMENT (Reported) Pantoprazole Sodium 40 MG TABLET.DR 1 TAB PO DAILY HEART HEALTH (Reported) Pentoxifylline 400 MG TABLET.ER 1 TAB PO DAILY UNKNOWN (Reported) Pravastatin Sodium 10 MG TABLET 1 TAB PO DAILY HEART HEALTH (Reported) [PREZCOBIX] 1 TAB PO DAILY RETROVIRAL Sitagliptin Phos/Metformin HCl (Janumet 50-1,000 MG Tablet) 50 MG-1,000 MG TABLET 1 TAB PO BID DM (Reported) Sulfamethoxazole/Trimethoprim (Sulfamethoxazole-Tmp Ds Tablet) 800 MG-160 MG TABLET 1 TAB PO Thursday ABT (Reported) Tamsulosin HCl 0.4 MG CAP.ER.24H 1 CAP PO DAILY ENLARGED PROSTATE (Reported) [Tivicay] 50 MG PO DAILY RETROVIRAL Valacyclovir HCl (Valacyclovir) 1,000 MG TABLET 1 TAB PO DAILY ANTIVIRAL ( Reported) Zolpidem Tartrate 10 MG TABLET 1 TAB PO QPMP SLEEP AIDE (Reported) Current Medications: Current Medications Sig/Juma Start time Last Medication Dose Route Stop Time Status Admin Acetaminophen 1,000 MG .STK-MED ONE 10/11 1413 DC IV 10/11 1414 Acetaminophen 1,000 MG Q6P PRN 10/10 0500 AC 10/12 IV 0703 Ammonium Lactate 1 DILLAN BID 10/10 1000 AC 10/12 TOP 1029 Aspirin Buffered 81 MG DAILY 10/10 1000 AC 10/12 PO 1027 Azithromycin 1,200 MG Wilkerson@1000 10/11 1000 AC 10/11 PO 1044 Ceftriaxone Sodium 1,000 MG DAILY 10/11 1219 AC 10/12 IV 1027 Clopidogrel Bisulfate 75 MG DAILY 10/10 1000 AC 10/12 PO 1027 Dextrose/Sodium 1,000 ML Q20H 10/10 2230 AC 10/11 Chloride IV 10/12 1429 1618 Escitalopram Oxalate 10 MG DAILY 10/10 1000 AC 10/12 PO 1027 Heparin Sodium 5,000 UNIT Q8 10/10 0600 AC 10/12 (Porcine) SC 0655 Insulin Aspart 0 TIDAC 10/10 0800 AC 10/12 SC 1311 Insulin Detemir 10 UNITS BID 10/11 2200 AC 10/12 SC 1028 Metoprolol Succinate 25 MG DAILY 10/10 1000 AC 10/12 PO 1028 Omeprazole 40 MG DAILY AC 10/10 0700 AC 10/12 PO 0659 Ondansetron HCl 4 MG Q6P PRN 10/11 1330 AC 10/11 IV 1418 Oxycodone/ 2 TAB Q6P PRN 10/10 0500 AC Acetaminophen PO Pentoxifylline 400 MG DAILY 10/10 1000 AC 10/12 PO 1156 Pravastatin Sodium 10 MG 1700 10/10 1700 AC 10/11 PO 1618 Tamsulosin HCl 0.4 MG DAILY 10/10 1000 AC 10/12 PO 1027 Trimethoprim/ 1 TAB 10/12 1000 AC 10/12 Sulfamethoxazole PO 10/13 0959 1027 Valacyclovir HCl 1,000 MG DAILY 10/10 1000 AC 10/12 PO 1026 Zolpidem Tartrate 10 MG QPM PRN 10/10 2200 AC PO Past History Medical History Blood Transfusion Hx: No Neurological: NONE EENT: glaucoma Cardiovascular: CAD (s/p stent), hypertension, myocardial infarction Respiratory: NONE Gastrointestinal: GERD Hepatic: NONE Renal: benign prost hyperplasia Musculoskeletal: NONE Psychiatric: depression Endocrine: diabetes Blood Disorders: HIV Cancer(s): NONE 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 yes Review of Systems Review of Systems Constitutional: Reports: malaise. EENTM: Denies: no symptoms. Cardiovascular: Denies: no symptoms. Respiratory: Denies: no symptoms. Genitourinary: Reports: see HPI. Musculoskeletal: Denies: no symptoms. Skin: Denies: no symptoms. Exam & Diagnostic Data Vital Signs and I&O Vital Signs Date Time Temp Pulse Resp B/P B/P Pulse O2 O2 Flow FiO2 Mean Ox Delivery Rate 10/12 1028 100.5 95 20 136/68 10/12 1027 100.5 95 20 136/68 10/12 0703 100.5 10/12 0620 100.5 95 20 136/68 96 Room Air 10/11 2247 98.3 78 20 126/70 98 Room Air 10/11 1537 99.5 10/11 1517 102.9 103 18 108/60 95 10/11 1500 99.5 10/11 1418 102.9 Intake & Output 10/12 1600 10/12 0800 10/12 0000 10/11 1600 10/11 0810/11 0000 Intake Total 830 1180 400 Output Total 200 200 101 450 500 200 Balance -200 630 -101 730 -100 -200 Intake, IV 350 500 400 Intake, Oral 480 680 Number 1 1 Bowel Movements Output, Stool 1 Output, Urine 200 200 100 450 500 200 Physical Exam General Appearance: well developed/nourished, no apparent distress Head: atraumatic Eyes: Bilateral: normal appearance. Neck: normal inspection Respiratory: normal breath sounds Cardiovascular: regular rate/rhythm Gastrointestinal: normal bowel sounds Back: no vertebral tenderness Extremities: normal inspection Reproductive: Normal male genitalia Last 24 Hours of Labs: Laboratory Tests 10/12 0847 Chemistry Sodium (137 - 145 mmol/L) 136 L Potassium (3.5 - 5.1 mmol/L) 3.9 Chloride (98 - 107 mmol/L) 99 Carbon Dioxide (22 - 30 mmol/L) 23 Anion Gap (5 - 16) 14 BUN (9 - 20 mg/dL) 18 Creatinine (0.7 - 1.2 mg/dL) 1.3 H Estimated GFR (>60 ml/min) 53 L BUN/Creatinine Ratio (7 - 25 %) 13.8 Vitamin B12 (239 - 931 pg/mL) Pending 25-OH Vitamin D Total (30 - 100 ng/ml) 13.0 L Hematology CBC w Diff NO MAN DIFF REQ WBC (4.8 - 10.8 /CUMM) 5.5 RBC (4.70 - 6.10 /CUMM) 3.42 L Hgb (14.0 - 18.0 G/DL) 10.1 L Hct (42 - 52 %) 30.3 L MCV (80.0 - 94.0 FL) 88.6 MCH (27.0 - 31.0 PG) 29.6 MCHC (33.0 - 37.0 G/DL) 33.4 RDW (11.5 - 14.5 %) 14.4 Plt Count (130 - 400 /CUMM) 183 MPV (7.4 - 10.4 FL) 9.4 Gran % (42.2 - 75.2 %) 78.2 H Lymphocytes % (20.5 - 51.1 %) 8.4 L Monocytes % (1.7 - 9.3 %) 13.4 H Eosinophils % (0 - 5 %) 0 Basophils % (0.0 - 2.0 %) 0 Absolute Granulocytes (1.4 - 6.5 /CUMM) 4.3 Absolute Lymphocytes (1.2 - 3.4 /CUMM) 0.5 L Absolute Monocytes (0.10 - 0.60 /CUMM) 0.7 H Absolute Eosinophils (0.0 - 0.7 /CUMM) 0 Absolute Basophils (0.0 - 0.2 /CUMM) 0 Imaging Results: PATIENT: TRAVIS PRYOR PRESENT AGE: 82 PATIENT ACCOUNT NO: [id number] : 35 LOCATION: [facility] ORDERING PHYSICIAN: Clint Perez MD SERVICE DATE: 10/10/17 EXAM TYPE: RAD - XRY-AP PELVIS; XRY-HIP 2-3 VIEWS, LEFT; XRY-LUMBOSACRAL SPINE AP & LAT; XRY-PORTABLE CHEST XRAY EXAMINATION: XR CHEST XR LUMBOSACRAL SPINE XR PELVIS XR HIP, LEFT CLINICAL INFORMATION: Fall COMPARISON: Multiple priors, including most recent chest x-ray 09/26/2016 TECHNIQUE: AP view of the chest. 2 views of the lumbosacral spine. AP view of the pelvis. Two views of the left hip. FINDINGS: Chest: Lung volumes are symmetric. No focal consolidation is seen. No evidence of pneumothorax, significant pleural effusion, or pulmonary edema. The cardiomediastinal contour is unremarkable. No acute osseous findings are seen. Lumbosacral spine: There is anatomic alignment of the lumbar vertebral bodies and posterior elements. Vertebral body heights are maintained. Intervertebral disc spaces appear relatively well-preserved. There is facet arthropathy of the lower lumbar spine. No acute fracture is seen. Pelvis/left hip: Alignment across the hips is anatomic with mild degenerative change. No acute fracture is identified. The sacroiliac joints appear intact. IMPRESSION: No acute traumatic findings identified in the chest, lumbosacral spine, pelvis, or left hip. Other Results: Patient : TRAVIS PRYOR Acct: [id number] DR: Angela Morrison MD Birthdate: [birth year] Age/Sex: 82/M Unit: [id number] Loc: 2NA 224- [id number] Status : ADM IN SPEC #: [id number] KEENAN: 10/10/17 STATUS: COMP RECD: 10/10/[address]: Chris BRAVO, Clint Aguirre SOURCE: URINE ROUT ENTR: 10/10/[address]: Jeff Emery MD SPDESC: URIN CLEAN ORDERED: URINE CULTURE COMMENT: UC ADDED 10/10 BY LIANG QUIROZ. Procedure Result > URINE CULTURE Final 10/12/17-955 NO GROWTH AFTER 2 DAYS Assessment/Plan Assessment/Plan pt with pre-renal/dehydration ARF-now resolved. Pt with fever of unknow origin (negative Urine Cx). Recommend renal US with post-void residual. Tx per med/ inectious disease. Copies To: Julien BRAVO,W[facility] Consult Acknowledgment - Thank you for your consult request. Attending MD Review Statement Attending Statement Attending MD Statement: examined this patient Attending Assessment/Plan: FUO. voiding well with negative ucx.
--- NOTE | 2017-10-12 15:11 | PN- Infect Dx ---
Subjective Subjective: MAXIMUM TEMPERATURE 102.9. He complains of back and left hip pain secondary to his recent fall. He also reports dysuria and occasional hematuria but denies any GI or respiratory complaints. Objective Last 24 Hrs of Vital Signs/I&O Vital Signs Date Time Temp Pulse Resp B/P B/P Pulse O2 O2 Flow FiO2 Mean Ox Delivery Rate 10/12 1414 98.0 70 20 120/64 97 Room Air 10/12 1028 100.5 95 20 136/68 10/12 1027 100.5 95 20 136/68 10/12 0703 100.5 10/12 0620 100.5 95 20 136/68 96 Room Air 10/11 2247 98.3 78 20 126/70 98 Room Air 10/11 1537 99.5 10/11 1517 102.9 103 18 108/60 95 10/11 1500 99.5 Intake & Output 10/12 1600 10/12 0800 10/12 0000 Intake Total 830 Output Total 200 200 101 Balance -200 630 -101 Intake, IV 350 Intake, Oral 480 Number 1 Bowel Movements Output, Stool 1 Output, Urine 200 200 100 Physical Exam Other Physical Findings: He appears comfortable in no acute distress Skin no rash Lungs are clear Heart regular rhythm with no murmur Abdomen is soft, nontender with positive bowel sounds Back no CVA tenderness Extremities no cyanosis, clubbing or edema; no palpable adenopathy no inflammation Results Last 24 Hours of Lab Results: Laboratory Tests 10/12 0847 Chemistry Sodium (137 - 145 mmol/L) 136 L Potassium (3.5 - 5.1 mmol/L) 3.9 Chloride (98 - 107 mmol/L) 99 Carbon Dioxide (22 - 30 mmol/L) 23 Anion Gap (5 - 16) 14 BUN (9 - 20 mg/dL) 18 Creatinine (0.7 - 1.2 mg/dL) 1.3 H Estimated GFR (>60 ml/min) 53 L BUN/Creatinine Ratio (7 - 25 %) 13.8 Vitamin B12 (239 - 931 pg/mL) 235 L 25-OH Vitamin D Total (30 - 100 ng/ml) 13.0 L Hematology CBC w Diff NO MAN DIFF REQ WBC (4.8 - 10.8 /CUMM) 5.5 RBC (4.70 - 6.10 /CUMM) 3.42 L Hgb (14.0 - 18.0 G/DL) 10.1 L Hct (42 - 52 %) 30.3 L MCV (80.0 - 94.0 FL) 88.6 MCH (27.0 - 31.0 PG) 29.6 MCHC (33.0 - 37.0 G/DL) 33.4 RDW (11.5 - 14.5 %) 14.4 Plt Count (130 - 400 /CUMM) 183 MPV (7.4 - 10.4 FL) 9.4 Gran % (42.2 - 75.2 %) 78.2 H Lymphocytes % (20.5 - 51.1 %) 8.4 L Monocytes % (1.7 - 9.3 %) 13.4 H Eosinophils % (0 - 5 %) 0 Basophils % (0.0 - 2.0 %) 0 Absolute Granulocytes (1.4 - 6.5 /CUMM) 4.3 Absolute Lymphocytes (1.2 - 3.4 /CUMM) 0.5 L Absolute Monocytes (0.10 - 0.60 /CUMM) 0.7 H Absolute Eosinophils (0.0 - 0.7 /CUMM) 0 Absolute Basophils (0.0 - 0.2 /CUMM) 0 Last 24 Hours of Lam Results: Blood cultures 2 October 10 negative Urine culture October 10 negative Assessment/Plan Impression: Fevers of unclear etiology, with his blood and urine cultures negative, with possible sources including an opportunistic infection, in this patient with AIDS and a low CD4 count (22 on last evaluation), or a urologic process, status post recent laser TURP with persistent pyuria. A noninfectious etiology must also be considered given the absence of any obvious infection and normal white blood cell count. His previous CT scans have revealed retroperitoneal, left inguinal and iliac lymphadenopathy, raising concern for lymphoma or metastatic prostate cancer, and a prostate biopsy was scheduled but deferred by patient and his daughter. Suggestion: 1. Repeat CT of the abdomen and pelvis with oral and IV contrast 2. Urology evaluation for possible cystoscopy and prostate biopsy 3. Discontinue Ceftriaxone 4. Continue Bactrim and Azithromycin prophylaxis pending above
--- NOTE | 2017-10-12 18:52 | Cons- Endocrinology ---
General Information and HPI Consulting Request Date of Consult: 10/12/17 Requested By: medical team Reason for Consult: uncontrolled diabetes Source of Information: patient, old records Exam Limitations: poor historian History of Present Illness: This 82-year-old male with a history of diabetes mellitus type 2 came to the hospital after a fall with left hip pain. He has a past history of HIV. He is on prophylactic antibiotics. He has been found to have fevers in the hospital. The patient has a history of hypertension, coronary artery disease status post PA status post stent, depression,. The patient has not been eating well in the hospital. At home he was on 40 units of Lantus daily. In the hospital his Levemir has been reduced to 10 units twice a day. He did have 10 units of Levemir this morning and a small dose of NovoLog before dinner tonight. He is presently n.p.o. for a procedure tomorrow. His most recent blood sugars are 82 before breakfast 169 after eating pineapple pie before lunch 204 before dinner and 153 after dinner. Allergies/Medications Allergies: Coded Allergies: No Known Allergies (08/26/17) Home Med List: Ammonium Lactate 12 % LOTION 1 DILLAN TOP BID SKIN (Reported) Aspirin (Ecotrin*) 81 MG TABLET.DR 1 TAB PO DAILY HEART HEALTH (Reported) Azithromycin 600 MG TABLET 2 TAB PO QSUN ANTIBIOTIC (Reported) Clopidogrel Bisulfate (Clopidogrel) 75 MG TABLET 1 TAB PO DAILY HEART HEALTH (Reported) Darunavir/Cobicistat (Prezcobix 800 MG-150 MG Tablet) 800 MG-150 MG TABLET 1 TAB PO DAILY HIV (Reported) Desonide (Desowen) 0.05 % CREAM..G. 1 DILLAN TOP BID SKIN (Reported) apply to affected area(s) Diclofenac Sodium (Voltaren) 1 % GEL..GRAM. 1 DILLAN TOP BID PRN PAIN (Reported) apply to affected area(s) Dolutegravir Sodium (Tivicay) 50 MG TABLET 1 TAB PO DAILY HIV (Reported) Escitalopram Oxalate 10 MG TABLET 1 TAB PO DAILY DEPRESSION (Reported) Hydrochlorothiazide 12.5 MG CAPSULE 1 CAP PO DAILY HEART HEALTH (Reported) Insulin Glargine,Hum.rec.anlog (Toujeo Solostar) 300 UNIT/ML (1.5 ML) INSULN.PEN 40 UNIT SC DAILY DM (Reported) Metoprolol Succinate 25 MG TAB 1 TAB PO DAILY HEART HEALTH (Reported) Nut.tx.gluc.intoler,Lac-Fr,Soy (Glucerna) (Unknown Strength) LIQUID 1 BOT PO BID NUTRITIONAL SUPPLEMENT (Reported) Pantoprazole Sodium 40 MG TABLET.DR 1 TAB PO DAILY HEART HEALTH (Reported) Pentoxifylline 400 MG TABLET.ER 1 TAB PO DAILY UNKNOWN (Reported) Pravastatin Sodium 10 MG TABLET 1 TAB PO DAILY HEART HEALTH (Reported) [PREZCOBIX] 1 TAB PO DAILY RETROVIRAL Sitagliptin Phos/Metformin HCl (Janumet 50-1,000 MG Tablet) 50 MG-1,000 MG TABLET 1 TAB PO BID DM (Reported) Sulfamethoxazole/Trimethoprim (Sulfamethoxazole-Tmp Ds Tablet) 800 MG-160 MG TABLET 1 TAB PO Thursday ABT (Reported) Tamsulosin HCl 0.4 MG CAP.ER.24H 1 CAP PO DAILY ENLARGED PROSTATE (Reported) [Tivicay] 50 MG PO DAILY RETROVIRAL Valacyclovir HCl (Valacyclovir) 1,000 MG TABLET 1 TAB PO DAILY ANTIVIRAL ( Reported) Zolpidem Tartrate 10 MG TABLET 1 TAB PO QPMP SLEEP AIDE (Reported) Past History Travel History Traveled to [place] past 21 day No Medical History Blood Transfusion Hx: No Neurological: NONE EENT: glaucoma Cardiovascular: CAD (s/p stent), hypertension, myocardial infarction Respiratory: NONE Gastrointestinal: GERD Hepatic: NONE Renal: benign prost hyperplasia Musculoskeletal: NONE Psychiatric: depression Endocrine: diabetes Blood Disorders: HIV Cancer(s): NONE [employer]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 Surgical History Surgical History: non-contributory Family History Relations & Conditions If Any: BROTHER Family hx of lung cancer Psychosocial History Services at Home: Home Health Aide, Occupational Therapy, Physical Therapy Smoking Status: Never Smoked ETOH Use: denies use Illicit Drug Use: denies illicit drug use Exam & Diagnostic Data Last 24 Hrs of Vital Signs/I&O Vital Signs Date Time Temp Pulse Resp B/P B/P Pulse O2 O2 Flow FiO2 Mean Ox Delivery Rate 10/12 1715 102.8 10/12 1414 98.0 70 20 120/64 97 Room Air 10/12 1028 100.5 95 20 136/68 10/12 1027 100.5 95 20 136/68 10/12 0703 100.5 10/12 0620 100.5 95 20 136/68 96 Room Air 10/11 2247 98.3 78 20 126/70 98 Room Air Intake & Output 10/12 1600 10/12 0800 10/12 0000 Intake Total 240 830 Output Total 240 200 101 Balance 0 630 -101 Intake, IV 350 Intake, Oral 240 480 Number 1 Bowel Movements Output, Stool 1 Output, Urine 240 200 100 Patient 160 lb Weight Labs/Lam Results: Laboratory Tests 10/12 0847 Chemistry Sodium (137 - 145 mmol/L) 136 L Potassium (3.5 - 5.1 mmol/L) 3.9 Chloride (98 - 107 mmol/L) 99 Carbon Dioxide (22 - 30 mmol/L) 23 Anion Gap (5 - 16) 14 BUN (9 - 20 mg/dL) 18 Creatinine (0.7 - 1.2 mg/dL) 1.3 H Estimated GFR (>60 ml/min) 53 L BUN/Creatinine Ratio (7 - 25 %) 13.8 Vitamin B12 (239 - 931 pg/mL) 235 L 25-OH Vitamin D Total (30 - 100 ng/ml) 13.0 L Hematology CBC w Diff NO MAN DIFF REQ WBC (4.8 - 10.8 /CUMM) 5.5 RBC (4.70 - 6.10 /CUMM) 3.42 L Hgb (14.0 - 18.0 G/DL) 10.1 L Hct (42 - 52 %) 30.3 L MCV (80.0 - 94.0 FL) 88.6 MCH (27.0 - 31.0 PG) 29.6 MCHC (33.0 - 37.0 G/DL) 33.4 RDW (11.5 - 14.5 %) 14.4 Plt Count (130 - 400 /CUMM) 183 MPV (7.4 - 10.4 FL) 9.4 Gran % (42.2 - 75.2 %) 78.2 H Lymphocytes % (20.5 - 51.1 %) 8.4 L Monocytes % (1.7 - 9.3 %) 13.4 H Eosinophils % (0 - 5 %) 0 Basophils % (0.0 - 2.0 %) 0 Absolute Granulocytes (1.4 - 6.5 /CUMM) 4.3 Absolute Lymphocytes (1.2 - 3.4 /CUMM) 0.5 L Absolute Monocytes (0.10 - 0.60 /CUMM) 0.7 H Absolute Eosinophils (0.0 - 0.7 /CUMM) 0 Absolute Basophils (0.0 - 0.2 /CUMM) 0 Assessment/Plan Assessment/Plan This patient is eating poorly in the hospital. His Levemir has been cut back. He is presently n.p.o. for procedure tomorrow. He did receive 10 units of Levemir this morning. I agree with beginning D5 half-normal saline at 75 cc/h. while n.p.o. I would hold his Levemir tonight. I would place him on sliding scale NovoLog every 4 hours rather than regular insulin every 6 hours. Sliding scale NovoLog every 4 hours should be less than 150 give no insulin 151-200 give 2 units NovoLog, 201- 250 give 3 units NovoLog, 251-300 give 3 units NovoLog, 301-350 give 4 units NovoLog, 351-400 give 5 units NovoLog. When the patient is eating again I would reduce his Levemir to 7 units twice a day. I would continue his mealtime sliding scale NovoLog as ordered. Consult Acknowledgment - Thank you for your consult request.
[2017-10-13] VITALS: BP 100/54
--- NOTE | 2017-10-13 05:52 | Event Note ---
Event Note Event Note: pt had an episode of gross heamturia VS stable BP 130/80, HR 90, O2 sats 98% Temp lying comfortably, offers no complaints gross heamturia blood on bed and on floor urinal slipped from hand Recent TURP sep 17 previous h/o of heamturia -stat CBC ordered -Will sign out to morning team AM consult with Dr. Victoria
[2017-10-13 06:31] LABS: ABSOLUTE BASOPHIL COUNT 0 /CUMM (0.0-0.2); ABSOLUTE EOSINOPHIL COUNT 0 /CUMM (0.0-0.7); ABSOLUTE GRANULOCYTE CT 4.3 /CUMM (1.4-6.5); ABSOLUTE LYMPH COUNT 0.9 /CUMM (1.2-3.4); ABSOLUTE MONOCYTE COUNT 0.8 /CUMM (0.10-0.60); BASOPHIL % 0 % (0.0-2.0); EOSINOPHIL % 0.1 % (0-5); GRANULOCYTE % 72.4 % (42.2-75.2); HEMATOCRIT 31.6 % (42-52); MEAN CORPUSCULAR HGB 28.7 PG (27.0-31.0); MEAN CORPUSCULAR HGB CONC 32.3 G/DL (33.0-37.0); MEAN CORPUSCULAR VOLUME 88.8 FL (80.0-94.0); MEAN PLATELET VOLUME 8.5 FL (7.4-10.4); PLATELET COUNT 189 /CUMM (130-400); RBC DISTRIBUTION WIDTH 14.6 % (11.5-14.5); RED BLOOD CELL CT 3.56 /CUMM (4.70-6.10); WHITE BLOOD CELL COUNT 5.9 /CUMM (4.8-10.8)
[2017-10-13 06:52] VITALS: BP 138/70
--- NOTE | 2017-10-13 07:47 | PN- Housestaff ---
Radha Churchill 10/13/17 0744: Subjective Follow-up For: fall Hx of UTI/TURP astmptomatic bacteruria HIV Subjective: Patient had a gross hematuria event without being unstable on VS overnight. Patient had no complaint when I examined him however he appeared to be soaked. Bedside FSG showed 190s and Temp 100.5, not tachycardia at 90s, O2 sat >92% under RA. Review of Systems Constitutional: Reports: see HPI. Objective Last 24 Hrs of Vital Signs/I&O Vital Signs Date Time Temp Pulse Resp B/P B/P Pulse O2 O2 Flow FiO2 Mean Ox Delivery Rate 10/13 0742 100.5 10/13 0652 99.8 92 20 138/70 98 Room Air 10/13 0000 98.2 68 20 100/54 96 Room Air 10/12 1715 102.8 10/12 1414 98.0 70 20 120/64 97 Room Air 10/12 1028 100.5 95 20 136/68 10/12 1027 100.5 95 20 136/68 Intake & Output 10/13 0800 10/13 0000 10/12 1600 Intake Total 600 240 Output Total 300 240 Balance 300 0 Intake, Oral 600 240 Output, Urine 300 240 Patient 72.575 kg Weight Physical Exam General Appearance: Alert, Oriented X3, Cooperative, No Acute Distress, Pt has a napkin at chest with blood stain, nursing staff said it was from previous wipe of hematuria. Cardiovascular: Regular Rate Lungs: Clear to Auscultation, Normal Air Movement Abdomen: Normal Bowel Sounds, Soft, No Tenderness Extremities: No Edema, Normal Pulses Current Medications: Current Medications Sig/Juma Start time Last Medication Dose Route Stop Time Status Admin Acetaminophen 650 MG ONCE ONE 10/13 0745 DC PO 10/13 0746 Acetaminophen 1,000 MG Q6P PRN 10/10 0500 AC 10/12 IV 1715 Ammonium Lactate 1 DILLAN BID 10/10 1000 AC 10/12 TOP 2109 Aspirin Buffered 81 MG DAILY 10/10 1000 AC 10/12 PO 1027 Azithromycin 1,200 MG Wilkerson@1000 10/11 1000 AC 10/11 PO 1044 Ceftriaxone Sodium 1,000 MG DAILY 10/11 1219 DC 10/12 IV 1027 Cholecalciferol 1,000 IU DAILY 10/12 1445 AC 10/12 PO 1430 Clopidogrel Bisulfate 75 MG DAILY 10/10 1000 AC 10/12 PO 1027 Dextrose/Sodium 1,000 ML Q13H 10/13 0000 AC 10/12 Chloride IV 2354 Dextrose/Sodium 1,000 ML Q20H 10/10 2230 DC 10/11 Chloride IV 10/12 1429 1618 Escitalopram Oxalate 10 MG DAILY 10/10 1000 AC 10/12 PO 1027 Heparin Sodium 5,000 UNIT Q8 10/10 0600 AC 10/12 (Porcine) SC 2108 Insulin Aspart 0 Q4 10/13 0200 AC SC Insulin Aspart 0 TIDAC 10/10 0800 DC 10/12 SC 10/13 0000 1808 Insulin Detemir 10 UNITS BID 10/11 2200 DC 10/12 SC 1028 Insulin Human Regular 0 Q6 10/13 0000 CAN SC Metoprolol Succinate 25 MG DAILY 10/10 1000 AC 10/12 PO 1028 Multivitamins 1 TAB DAILY 10/12 1530 AC 10/12 PO 1500 Omeprazole 40 MG DAILY AC 10/10 0700 AC 10/13 PO 0616 Ondansetron HCl 4 MG Q6P PRN 10/11 1330 AC 10/13 IV 0623 Oxycodone/ 2 TAB Q6P PRN 10/10 0500 AC 10/13 Acetaminophen PO 0641 Pentoxifylline 400 MG DAILY 10/10 1000 AC 10/12 PO 1156 Pravastatin Sodium 10 MG 1700 10/10 1700 AC 10/12 PO 1805 Tamsulosin HCl 0.4 MG DAILY 10/10 1000 AC 10/12 PO 1027 Trimethoprim/ 1 TAB 10/12 1000 AC 10/12 Sulfamethoxazole PO 10/13 0959 1027 Valacyclovir HCl 1,000 MG DAILY 10/10 1000 AC 10/12 PO 1026 Zolpidem Tartrate 10 MG QPM PRN 10/10 2200 AC PO Last 24 Hrs of Lab/Lam Results Last 24 Hrs of Labs/Mics: Laboratory Tests 10/13/17 0610: Anion Gap 15, Estimated GFR 58 L, BUN/Creatinine Ratio 15.0, CBC w Diff NO MAN DIFF REQ, RBC 3.56 L, MCV 88.8, MCH 28.7, MCHC 32.3 L, RDW 14.6 H, MPV 8.5, Gran % 72.4, Lymphocytes % 14.5 L, Monocytes % 13.0 H, Eosinophils % 0.1, Basophils % 0, Absolute Granulocytes 4.3, Absolute Lymphocytes 0.9 L, Absolute Monocytes 0.8 H, Absolute Eosinophils 0, Absolute Basophils 0 10/13/17 0600: Sodium Cancelled, Potassium Cancelled, Chloride Cancelled, Carbon Dioxide Cancelled, Anion Gap Cancelled, BUN Cancelled, Creatinine Cancelled, BUN/ Creatinine Ratio Cancelled, CBC w Diff Cancelled, WBC Cancelled, RBC Cancelled, Hgb Cancelled, Hct Cancelled, MCV Cancelled, MCH Cancelled, MCHC Cancelled, RDW Cancelled, Plt Count Cancelled, MPV Cancelled 10/12/17 0847: Anion Gap 14, Estimated GFR 53 L, BUN/Creatinine Ratio 13.8, Vitamin B12 235 L , 25-OH Vitamin D Total 13.0 L, CBC w Diff NO MAN DIFF REQ, RBC 3.42 L, MCV 88.6, MCH 29.6, MCHC 33.4, RDW 14.4, MPV 9.4, Gran % 78.2 H, Lymphocytes % 8.4 L, Monocytes % 13.4 H, Eosinophils % 0, Basophils % 0, Absolute Granulocytes 4.3, Absolute Lymphocytes 0.5 L, Absolute Monocytes 0.7 H, Absolute Eosinophils 0, Absolute Basophils 0 Assessment/Plan Assessment: 82-year-old male with past medical history significant for coronary artery disease status post [place], stent placement on dual antiplatelet regimen, HIV with CD4 count 22 on prophylactic antibiotics Bactrim, azithromycin, valacyclovir, Prezcobix, dolutegravir, depression, hypertension, type 2 diabetes mellitus, GERD, BPH, recently discharged for fever of unknown origin, retroperitoneal lymphadenopathy questionable lymphoma presenting to the emergency room for left hip pain status post fall x2. Problem List: #fall Pt reports fall x2 and landed on L hip. He reported dizziness prior to the evening. Denied hitting his head. Denies any loss of consciousness, urine incontinence, bowel incontinence, seizures. Hip x-ray, pelvic x-ray, lumbar spine x-ray, head/ cervical spine CT negative for acute fractures VitD /B12 levels low -start vit D and multivtiamin supplmentation -PT recommends home PT -cont pain control -f/u ortho stats #FUO Tmax 24hrs: 100.5 Patient was last admitted for FUO. Possible cause maybe due to the retroperitoneal, left iliac and left inguinal lymphadenopathy Ucx and blood cx negative thus far Rapid fabián negative -repeat ct abd pelvis with po and IV contrast today -dc ceftriaxone per ID -continue HIV medications - Tylenol 650mg once for his spiked fever this morning. #Asymptomatic bacteriuria States minor dysuria Denies urgency, frequency, lower abdominal discomfort. UA + for moderate LE and WBC >75 Urine cx negative -stop ceftriaxone per ID -NPO @ midnight for CT abd/pelvis with oral and IV contrast, renal US - Patient had gross hematuria at night without being unstable on VS. Patient had no complaint so far. Pending Renal U/S and urology input on cystoscopy. #Acute kidney injury Initial Cr 1.7 (baseline 1.0) Latest Cr 1.2 -cont to monitor -Avoid nephrotoxins. -Avoid hydrochlorothiazide #HIV Last CD4 count 22 -continue prescobix and dolutragravir daily. -continue Bactrim, azithromycin, valacyclovir #DM Blood sugars running from 72-200 despite decreasing levemir to 10 units BID -f/u endocrinology consult, would decrease to Levemir 7 unit BID with previous Novolog SS. #Coronary artery disease status post stent placement -continue aspirin, statin, Plavix #Peripheral vascular disease -continue pentoxifylline 400 mg daily #Depression -continue Lexapro 10 mg daily #Hypertension -continue metoprolol. -hold hydrochlorothiazide #GERD -continue omeprazole #BPH s/p TURP -continue tamsulosin #Insomnia -continue zolpidem as needed for sleep #FULL CODE #DVT prophylaxis subcutaneous heparin NPO @ midnight tonight then resume diabetic diet Problem List: 1. Fever of unknown origin 2. Fall 3. Hematuria 4. Weakness Pain Ratin Pain Location: NA Pain Goal: Remain pain free Pain Plan: see AP Tomorrow's Labs & Rationales: CBC/BEP TamikoAngela grover 10/13/17 1140: Attending MD Review Statement Attending Statement Attending MD Statement: examined this patient, discuss w/resident/PA/STEM FRAZER, agreed w/resident/PA/STEM FRAZER, discussed with family, reviewed EMR data (avail), discussed with nursing, discussed with case mgmt, reviewed images, amended to note Attending Assessment/Plan: 82M PMH HIV positive for 15 years, noncompliant with antiretroviral therapy until recently, with a recent CD4 count of 22, h/ CAD s/p [place] and stent, HTN, HLD , T2DM, BPH s/p recent TURP brought in by family for fall, generalized weakness, hip pain and asymptomatic bacteriuria, weekend events with hypoglycemia. ID noted, Urology noted. afebrile for past [address] abd/pelvis with contrast today. 1. ORTIZ improving 2. H/O Hematuria s/p TUR 3. Generalized weakness 4. 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 H/o CAD on DAPT had stent > 1 year ago. 6. Fever work up ongoing. ?UTI Plan - f/u ID and urology. - Urine culture final c/s negative so far, Discontinued ceftriaxone. abx as per ID. - HAART as per ID. - antiplatelet therapy as per cardiology. - PT eval consult for dc planning. - DVT PPx.
--- NOTE | 2017-10-13 08:15 | PN- Diabetes ---
Assessment/Plan Assessment: The patient still does not feel well. He is n.p.o. for a procedure this morning. His last dose of Levemir was 10 units yesterday morning. He is on D5 half-normal saline at 75 cc/h and NovoLog coverage every 4 hours. His sugars most recently are 88, 130, and 193. Plan: Suggest that when the patient returns from the procedure and is eating again that Levemir be resumed but at a lower dose of 7 units twice a day. Continue sliding scale NovoLog before meals as previously written. Objective Last 24 Hrs of Vital Signs/I&O Vital Signs Date Time Temp Pulse Resp B/P B/P Pulse O2 O2 Flow FiO2 Mean Ox Delivery Rate 10/13 0742 100.5 10/13 0652 99.8 92 20 138/70 98 Room Air 10/13 0000 98.2 68 20 100/54 96 Room Air 10/12 1715 102.8 10/12 1414 98.0 70 20 120/64 97 Room Air 10/12 1028 100.5 95 20 136/68 10/12 1027 100.5 95 20 13668 Intake & Output 10/13 1600 10/13 0800 10/13 0000 Intake Total 600 600 Output Total 150 300 Balance 450 300 Intake, IV 600 Intake, Oral 0 600 Output, Urine 150 300 Vital Signs Date Time Temp Pulse Resp B/P B/P Pulse O2 O2 Flow FiO2 Mean Ox Delivery Rate 10/13 0742 100.5 10/13 0652 99.8 92 20 138/70 98 Room Air 10/13 0000 98.2 68 20 100/54 96 Room Air 10/12 1715 102.8 10/12 1414 98.0 70 20 120/64 97 Room Air 10/12 1028 100.5 95 20 136/68 10/12 1027 100.5 95 20 136/68 Intake & Output 10/13 1600 10/13 0800 10/13 0000 Intake Total 600 600 Output Total 150 300 Balance 450 300 Intake, IV 600 Intake, Oral 0 600 Output, Urine 150 300 Current Medications: Current Medications Sig/Juma Start time Last Medication Dose Route Stop Time Status Admin Acetaminophen 650 MG ONCE ONE 10/13 0745 DC PO 10/13 0746 Acetaminophen 1,000 MG Q6P PRN 10/10 0500 AC 10/12 IV 1715 Ammonium Lactate 1 DILLAN BID 10/10 1000 AC 10/12 TOP 2109 Aspirin Buffered 81 MG DAILY 10/10 1000 AC 10/12 PO 1027 Azithromycin 1,200 MG Wilkerson@1000 10/11 1000 AC 10/11 PO 1044 Ceftriaxone Sodium 1,000 MG DAILY 10/11 1219 DC 10/12 IV 1027 Cholecalciferol 1,000 IU DAILY 10/12 1445 AC 10/12 PO 1430 Clopidogrel Bisulfate 75 MG DAILY 10/10 1000 AC 10/12 PO 1027 Dextrose/Sodium 1,000 ML Q13H 10/13 0000 AC 10/12 Chloride IV 2354 Dextrose/Sodium 1,000 ML Q20H 10/10 2230 DC 10/11 Chloride IV 10/12 1429 1618 Escitalopram Oxalate 10 MG DAILY 10/10 1000 AC 10/12 PO 1027 Heparin Sodium 5,000 UNIT Q8 10/10 0600 AC 10/12 (Porcine) SC 2108 Insulin Aspart 0 Q4 10/13 0200 AC SC Insulin Aspart 0 TIDAC 10/10 0800 DC 10/12 SC 10/13 0000 1808 Insulin Detemir 10 UNITS BID 10/11 2200 DC 10/12 SC 1028 Insulin Human Regular 0 Q6 10/13 0000 CAN SC Metoprolol Succinate 25 MG DAILY 10/10 1000 AC 10/12 PO 1028 Multivitamins 1 TAB DAILY 10/12 1530 AC 10/12 PO 1500 Omeprazole 40 MG DAILY AC 10/10 0700 AC 10/13 PO 0616 Ondansetron HCl 4 MG Q6P PRN 10/11 1330 AC 10/13 IV 0623 Oxycodone/ 2 TAB Q6P PRN 10/10 0500 AC 10/13 Acetaminophen PO 0641 Pentoxifylline 400 MG DAILY 10/10 1000 AC 10/12 PO 1156 Pravastatin Sodium 10 MG 1700 10/10 1700 AC 10/12 PO 1805 Tamsulosin HCl 0.4 MG DAILY 10/10 1000 AC 10/12 PO 1027 Trimethoprim/ 1 TAB THURSDAY WED THURSDAY 10/12 1000 AC 10/12 Sulfamethoxazole PO 10/13 0959 1027 Valacyclovir HCl 1,000 MG DAILY 10/10 1000 AC 10/12 PO 1026 Zolpidem Tartrate 10 MG QPM PRN 10/10 2200 AC PO Findings Pertinent Lab/Lam Results: Laboratory Tests 10/13 10/13 0610 0600 Chemistry Sodium (137 - 145 mmol/L) 138 Cancelled Potassium (3.5 - 5.1 mmol/L) 4.2 Cancelled Chloride (98 - 107 mmol/L) 100 Cancelled Carbon Dioxide (22 - 30 mmol/L) 24 Cancelled Anion Gap (5 - 16) 15 Cancelled BUN (9 - 20 mg/dL) 18 Cancelled Creatinine (0.7 - 1.2 mg/dL) 1.2 Cancelled Estimated GFR (>60 ml/min) 58 L BUN/Creatinine Ratio (7 - 25 %) 15.0 Cancelled Hematology CBC w Diff NO MAN DIFF REQ Cancelled WBC (4.8 - 10.8 /CUMM) 5.9 Cancelled RBC (4.70 - 6.10 /CUMM) 3.56 L Cancelled Hgb (14.0 - 18.0 G/DL) 10.2 L Cancelled Hct (42 - 52 %) 31.6 L Cancelled MCV (80.0 - 94.0 FL) 88.8 Cancelled MCH (27.0 - 31.0 PG) 28.7 Cancelled MCHC (33.0 - 37.0 G/DL) 32.3 L Cancelled RDW (11.5 - 14.5 %) 14.6 H Cancelled Plt Count (130 - 400 /CUMM) 189 Cancelled MPV (7.4 - 10.4 FL) 8.5 Cancelled Gran % (42.2 - 75.2 %) 72.4 Lymphocytes % (20.5 - 51.1 %) 14.5 L Monocytes % (1.7 - 9.3 %) 13.0 H Eosinophils % (0 - 5 %) 0.1 Basophils % (0.0 - 2.0 %) 0 Absolute Granulocytes (1.4 - 6.5 /CUMM) 4.3 Absolute Lymphocytes (1.2 - 3.4 /CUMM) 0.9 L Absolute Monocytes (0.10 - 0.60 /CUMM) 0.8 H Absolute Eosinophils (0.0 - 0.7 /CUMM) 0 Absolute Basophils (0.0 - 0.2 /CUMM) 0 10/12 0847 Chemistry Sodium (137 - 145 mmol/L) 136 L Potassium (3.5 - 5.1 mmol/L) 3.9 Chloride (98 - 107 mmol/L) 99 Carbon Dioxide (22 - 30 mmol/L) 23 Anion Gap (5 - 16) 14 BUN (9 - 20 mg/dL) 18 Creatinine (0.7 - 1.2 mg/dL) 1.3 H Estimated GFR (>60 ml/min) 53 L BUN/Creatinine Ratio (7 - 25 %) 13.8 Vitamin B12 (239 - 931 pg/mL) 235 L 25-OH Vitamin D Total (30 - 100 ng/ml) 13.0 L Hematology CBC w Diff NO MAN DIFF REQ WBC (4.8 - 10.8 /CUMM) 5.5 RBC (4.70 - 6.10 /CUMM) 3.42 L Hgb (14.0 - 18.0 G/DL) 10.1 L Hct (42 - 52 %) 30.3 L MCV (80.0 - 94.0 FL) 88.6 MCH (27.0 - 31.0 PG) 29.6 MCHC (33.0 - 37.0 G/DL) 33.4 RDW (11.5 - 14.5 %) 14.4 Plt Count (130 - 400 /CUMM) 183 MPV (7.4 - 10.4 FL) 9.4 Gran % (42.2 - 75.2 %) 78.2 H Lymphocytes % (20.5 - 51.1 %) 8.4 L Monocytes % (1.7 - 9.3 %) 13.4 H Eosinophils % (0 - 5 %) 0 Basophils % (0.0 - 2.0 %) 0 Absolute Granulocytes (1.4 - 6.5 /CUMM) 4.3 Absolute Lymphocytes (1.2 - 3.4 /CUMM) 0.5 L Absolute Monocytes (0.10 - 0.60 /CUMM) 0.7 H Absolute Eosinophils (0.0 - 0.7 /CUMM) 0 Absolute Basophils (0.0 - 0.2 /CUMM) 0
--- NOTE | 2017-10-13 12:55 | PN- Infect Dx ---
Subjective Subjective: MAXIMUM TEMPERATURE 102.8. He complains of hematuria and inability to urinate. Objective Last 24 Hrs of Vital Signs/I&O Vital Signs Date Time Temp Pulse Resp B/P B/P Pulse O2 O2 Flow FiO2 Mean Ox Delivery Rate 10/13 0849 100.5 10/13 0843 100.5 92 20 138/70 10/13 0843 100.5 92 20 138/70 10/13 0742 100.5 10/13 0652 99.8 92 20 138/70 98 Room Air 10/13 0000 98.2 68 20 100/54 96 Room Air 10/12 1715 102.8 10/12 1414 98.0 70 20 120/64 97 Room Air Intake & Output 10/13 1600 10/13 0800 10/13 0000 Intake Total 600 600 Output Total 150 300 Balance 450 300 Intake, IV 600 Intake, Oral 0 600 Number 1 Bowel Movements Output, Urine 150 300 Physical Exam Other Physical Findings: He is awake and alert in no acute distress Lungs are clear Heart regular rhythm with no murmur Abdomen is soft, nontender with positive bowel sounds Back no CVA tenderness Extremities no cyanosis, clubbing or edema hematuria Results Last 24 Hours of Lab Results: Laboratory Tests 10/13 10/13 0610 0600 Chemistry Sodium (137 - 145 mmol/L) 138 Cancelled Potassium (3.5 - 5.1 mmol/L) 4.2 Cancelled Chloride (98 - 107 mmol/L) 100 Cancelled Carbon Dioxide (22 - 30 mmol/L) 24 Cancelled Anion Gap (5 - 16) 15 Cancelled BUN (9 - 20 mg/dL) 18 Cancelled Creatinine (0.7 - 1.2 mg/dL) 1.2 Cancelled Estimated GFR (>60 ml/min) 58 L BUN/Creatinine Ratio (7 - 25 %) 15.0 Cancelled Hematology CBC w Diff NO MAN DIFF REQ Cancelled WBC (4.8 - 10.8 /CUMM) 5.9 Cancelled RBC (4.70 - 6.10 /CUMM) 3.56 L Cancelled Hgb (14.0 - 18.0 G/DL) 10.2 L Cancelled Hct (42 - 52 %) 31.6 L Cancelled MCV (80.0 - 94.0 FL) 88.8 Cancelled MCH (27.0 - 31.0 PG) 28.7 Cancelled MCHC (33.0 - 37.0 G/DL) 32.3 L Cancelled RDW (11.5 - 14.5 %) 14.6 H Cancelled Plt Count (130 - 400 /CUMM) 189 Cancelled MPV (7.4 - 10.4 FL) 8.5 Cancelled Gran % (42.2 - 75.2 %) 72.4 Lymphocytes % (20.5 - 51.1 %) 14.5 L Monocytes % (1.7 - 9.3 %) 13.0 H Eosinophils % (0 - 5 %) 0.1 Basophils % (0.0 - 2.0 %) 0 Absolute Granulocytes (1.4 - 6.5 /CUMM) 4.3 Absolute Lymphocytes (1.2 - 3.4 /CUMM) 0.9 L Absolute Monocytes (0.10 - 0.60 /CUMM) 0.8 H Absolute Eosinophils (0.0 - 0.7 /CUMM) 0 Absolute Basophils (0.0 - 0.2 /CUMM) 0 Last 24 Hours of Lam Results: Blood cultures October 10 negative Assessment/Plan Impression: Fevers persist, of unclear etiology, with his blood and urine cultures negative, with possible sources including an opportunistic infection in this patient with AIDS and a low CD4 count (22 on last evaluation) or a urologic process, status post recent laser TURP with persistent pyuria and hematuria. A noninfectious etiology for example drug fever, must also be considered given the absence of any obvious infection and normal white blood cell count. It appears that the Bactrim, which he was on for PJP prophylaxis, has been discontinued, perhaps inadvertently. His previous CT scans have revealed retroperitoneal, left inguinal and iliac lymphadenopathy, raising concern for lymphoma or metastatic prostate cancer, and a prostate biopsy will again need to be considered. Suggestion: 1. Repeat CT of the abdomen and pelvis with oral and IV contrast 2. Urology reevaluation for possible cystoscopy and prostate biopsy 3. Reevaluate/ investigate need for Valacyclovir prophylaxis 4. Continue Bactrim and Azithromycin prophylaxis pending above
--- NOTE | 2017-10-13 13:49 | ULTRASOUND REPORT ---
EXAMINATION: US RETROPERITONEAL COMPLETE (RENAL) CLINICAL INFORMATION: Recurrent urinary tract infections, rule out obstruction.. COMPARISON: CT scan of the abdomen and pelvis performed on the same day as the current study. TECHNIQUE: Real-time imaging of the kidneys and bladder. FINDINGS: RIGHT KIDNEY: 10.1 x 4.1 x 5.0 cm (SAG x AP x TRV). The kidney is normal in size, contour, and echogenicity. Renal cortical thickness is normal. No calculi or focal parenchymal lesions. No hydronephrosis. LEFT KIDNEY: 9.9 x 5.2 x 4.3 cm (SAG x AP x TRV). The kidney is normal in size, contour, and echogenicity. Renal cortical thickness is normal. No calculi or focal parenchymal lesions. No hydronephrosis. BLADDER: Well-distended, contains echogenic material within the bladder lumen as well as urine content. Thin stranding is present along the superior aspect of the debris within the bladder lumen. IMPRESSION: 1. No focal renal findings, specifically no evidence of hydronephrosis or renal calculi. 2. Echogenic material present within the bladder lumen, may represent residual bacteria from the UTI versus other material such as hemorrhage, a thin strand along the superior margin is suggestive of a fibrin strand. Clinical correlation requested.
[2017-10-13 14:24] VITALS: BP 112/78
--- NOTE | 2017-10-13 14:36 | CT SCAN REPORT ---
EXAMINATION: CT ABDOMEN AND PELVIS WITH CONTRAST CLINICAL INFORMATION: Fever of unknown origin, and retroperitoneal lymphadenopathy. Recurrent UTI. COMPARISON: CT scan of the abdomen and pelvis dated 09/29/2017.. TECHNIQUE: Multidetector volumetric imaging was performed of the abdomen and pelvis following IV administration of 95 mL of Optiray 320 intravenous contrast. Sagittal and coronal reformatted images were obtained on the technologist's workstation. DLP: 424.11 mGy-cm FINDINGS: LUNG BASES: The visualized lung bases are clear. LIVER, GALLBLADDER, AND BILIARY TREE: The liver is normal in size, shape, and attenuation. No focal hepatic lesion or biliary ductal dilatation is present. The gallbladder is unremarkable with no evidence of radiopaque gallstones, gallbladder wall thickening, or obvious pericholecystic inflammatory changes. PANCREAS: Unremarkable. SPLEEN: Unremarkable. ADRENAL GLANDS: Unremarkable. KIDNEYS AND URETERS: There is bilateral hydronephrosis, more prominent on the right compared to the left. Subcentimeter cystic structures are present in the lower poles of both kidneys, too small to characterize by CT criterion. BLADDER: Heterogeneous material is present within the bladder lumen, with stranding of the dense and evidence of a fluid fluid level. The density of the more dense fluid material is 58 Hounsfield units. GASTROINTESTINAL TRACT: A hiatal hernia is present, measuring approximately 3.7 cm in diameter The small and large bowel are unremarkable. The appendix is prominent measuring 9 mm in diameter, however no. Appendiceal inflammatory changes are noted. No appendicolith is identified. ABDOMINAL WALL: Small bilateral inguinal hernias are present which contain only mesenteric fat.. LYMPH NODES: Left inguinal lymph node is present, the largest of the lymph nodes is 1.6 cm in short axis dimension. Also noted is presence of lymphadenopathy in the left iliac chains multiple enlarged para-aortic aortic/pericaval lymph nodes are present left and right sided, ranging in size from short axis dimensions of subcentimeter to the largest in the left side which measures 1.7 cm in short axis dimension.. VASCULAR: Atherosclerotic plaque is present within the abdominal aorta extending into the iliac bifurcation without evidence of aneurysmal dilation. PELVIC VISCERA: The prostate gland is enlarged measuring 7.4 x 5.7 x 7.5 cm in size and contains multiple small calcifications.. OSSEOUS STRUCTURES: L5 is a transitional vertebral body, there is grade 1 anterolisthesis of L4 on L5. Mild rightward curvature of the lumbar spine is noted. No focal aggressive osseous lesions are present.. IMPRESSION: 1. Fluid fluid layer within the bladder lumen with significant amount of the debris and stranding present within the urinary bladder. Bladder hematoma versus presence of bacterial remnants. 2. Bilateral hydronephrosis right greater than left. 3. Retroperitoneal lymphadenopathy and left inguinal lymphadenopathy. 4. Enlarged prostate gland as described. 5. Small bilateral inguinal hernias and a hiatal hernia are incidentally noted.
--- NOTE | 2017-10-13 17:40 | Event Note ---
Event Note Event Note: Discussed with Dr. Victoria by phone regarding patient's current difficulty on urination. Dr. Victoria recommended no catherterize at this moment. Patient's feeling of suprapubic fullness was likely due to clots found in the imaging. Dr. Victoria would take patient to OR for removal of clots and to cauterize any bleeding. Will hold anticoagulant and keep patient NPO now in case of OR event at any time. Patient's daughter was updated about the plan. Nursing staff updated on current status.
[2017-10-13 22:56] VITALS: BP 112/62
[2017-10-14 06:58] VITALS: BP 124/64
[2017-10-14 08:58] LABS: ABSOLUTE BASOPHIL COUNT 0 /CUMM (0.0-0.2); ABSOLUTE EOSINOPHIL COUNT 0 /CUMM (0.0-0.7); ABSOLUTE GRANULOCYTE CT 7.5 /CUMM (1.4-6.5); ABSOLUTE LYMPH COUNT 0.4 /CUMM (1.2-3.4); ABSOLUTE MONOCYTE COUNT 0.8 /CUMM (0.10-0.60); BASOPHIL % 0 % (0.0-2.0); EOSINOPHIL % 0 % (0-5); HEMATOCRIT 28.8 % (42-52); MEAN CORPUSCULAR HGB 29.4 PG (27.0-31.0); MEAN CORPUSCULAR HGB CONC 33.2 G/DL (33.0-37.0); MEAN CORPUSCULAR VOLUME 88.4 FL (80.0-94.0); MEAN PLATELET VOLUME 9.7 FL (7.4-10.4); PLATELET COUNT 198 /CUMM (130-400); RBC DISTRIBUTION WIDTH 14.8 % (11.5-14.5); RED BLOOD CELL CT 3.25 /CUMM (4.70-6.10); WHITE BLOOD CELL COUNT 8.7 /CUMM (4.8-10.8)
[2017-10-14 09:53] LABS: GRANULOCYTE % 86.1 % (42.2-75.2)
--- NOTE | 2017-10-14 10:32 | Event Note ---
Event Note Event Note: Situation Rapid response called as patient is more lathargic and unresponsive Brief Patient is a 82 YO M with PMH significant for CAD on stents, BPH s/p TURP, HIV with low CD4 counts on prophylaxis for PCP, MAC. Admitted for fall resulting in left hip pain. Course is notable for ongoing fevers of unknown origin for which he got a CT scan with IV and oral contrast yesterday. Apparently patient was less responsive overnight. He reamained more lethargic this am and unresponsive at around 10:00am. He is NPO with D51/2NS running awaiting cystoscopy for persistent hematuria s/p TURP. VS - Temp 101, HR 120, BP 150/62mmHg, saturating 96% on RA Physical exam - nonverbal, pupils mildly miotic - reactive to light, responsive to sternal rub. Heart S1, S2 normal. Lungs: clear. Neuro unable to perform due to clinical condition. Babinski negative. Labs are significant for BUN 35/Cr 3.7, AG 18,K of 5. Blood glucose - 350. EKG - Sinus tachycardia HR 120, normal sinus rhythm, narrow QRS with poor R wave progression, normal axis. A single dose of narcan IV given with mild improvement in mentation which did not persist longer. Assessment Acute change in mental status with broad differential including - 1. Uremic encephalopathy due to postrenal or contrast induced renal disease 2. Stroke 3. Seizure 4. Hyperglycemia 5. Pain medication accumulation in the setting of acute kidney injury Plan 1. Transfer to telemetry 2. Stat head CT did show evolving stroke - personally spoke with neurology informed to obtain MRI, given nonfocal and able to move all the 4 extremities it might not be a true stroke. 3. Given unknown duration and ongoing hematuria - he is not a candidate for tPA as well. 4. Neurochecks Q2 5. Atrovastatin 80mg - Paitent was on aspirin 6. Will hold off cystoscopy today. 7. As bladder obstruction can have a role - a catheter can benefit to drain the urine. 8. Stroke work up with carotid ultrasound, ECHO
--- NOTE | 2017-10-14 11:22 | CT SCAN REPORT ---
EXAMINATION: CT HEAD WITHOUT CONTRAST CLINICAL INFORMATION: Sudden alteration in mentation and hyperglycemia. Assess for acute pathology. COMPARISON: CT scan of the head 10/10/2017. TECHNIQUE: Contiguous axial imaging was performed from the skull base to vertex without intravenous administration of contrast. DLP: 618.07 mGy-cm FINDINGS: There is no evidence of acute intracranial hemorrhage or territorial infarction. No abnormal mass effect or midline shift is seen. Gagnon to white matter differentiation is well preserved. No extra-axial fluid collections are identified. There is commensurate prominence of the ventricles and sulci consistent with moderate diffuse volume loss, unchanged. There is moderate low-attenuation the periventricular and subcortical white matter, consistent with chronic microvascular ischemic disease. There is an area of low attenuation in the left medial cerebellar hemisphere, which may be consistent with an evolving areas of ischemia. This is a new finding compared to the prior study. There are atheromatous calcifications of the cavernous internal carotid and vertebral arteries bilaterally. There are no acute osseous findings. There are degenerative changes of the right greater than left temporomandibular joints. There have been bilateral lens extractions. The mastoid air cells and visualized portions of the paranasal sinuses are well aerated. IMPRESSION: 1. There is a new area of low attenuation in the right medial cerebellar hemisphere, which may be consistent with an evolving infarct. Recommend further evaluation with MRI scan of the brain. 2. The study redemonstrates diffuse volume loss and chronic microvascular ischemic disease.
[2017-10-14 11:53] VITALS: BP 116/54
--- NOTE | 2017-10-14 12:11 | PN- Housestaff ---
See Addendum Radha Churchill 10/14/17 1210: Subjective Follow-up For: Altered mental status fall Hx of UTI/TURP astmptomatic bacteruria HIV Subjective: per nursing staff patient eventually passed 600ml+ urine later last night. Patient was hard to awake this morning, however temp was 99.5 without spiked fever. Review of Systems Constitutional: Reports: see HPI. Objective Last 24 Hrs of Vital Signs/I&O Vital Signs Date Time Temp Pulse Resp B/P B/P Pulse O2 O2 Flow FiO2 Mean Ox Delivery Rate 10/14 1153 99.4 128 20 116/54 96 Room Air 10/14 1017 101.0 10/14 0857 99.5 107 20 124/64 10/14 0856 99.5 107 20 124/64 10/14 0658 99.5 107 20 124/64 95 Room Air 10/13 2256 98.3 93 20 112/62 97 Room Air 10/13 1424 98.1 72 20 112/78 98 Room Air Intake & Output 10/14 1600 10/14 0800 10/14 0000 Intake Total 600 Output Total Balance 600 Intake, IV 600 Number 1 1 Bowel Movements Physical Exam General Appearance: Patient is sleeping and hard to wake up Cardiovascular: Regular Rate Lungs: Clear to Auscultation, Normal Air Movement Current Medications: Current Medications Sig/Juma Start time Last Medication Dose Route Stop Time Status Admin Acetaminophen 1,000 MG Q6P PRN 10/10 0500 AC 10/14 IV 1017 Ammonium Lactate 1 DILLAN BID 10/10 1000 AC 10/14 TOP 0858 Aspirin Buffered 81 MG DAILY 10/10 1000 AC 10/14 PO 0856 Azithromycin 1,200 MG Wilkerson@1000 10/11 1000 AC 10/11 PO 1044 Cholecalciferol 1,000 IU DAILY 10/12 1445 AC 10/14 PO 0857 Clopidogrel Bisulfate 75 MG DAILY 10/10 1000 DC 10/13 PO 0843 Dextrose/Sodium 1,000 ML Q13H 10/14 1745 DC Chloride IV Dextrose/Sodium 1,000 ML Q13H 10/14 0000 DC Chloride IV Dextrose/Sodium 1,000 ML Q13H 10/13 2045 AC 10/14 Chloride IV 0855 Dextrose/Sodium 1,000 ML Q13H 10/13 0000 DC 10/13 Chloride IV 1219 Escitalopram Oxalate 10 MG DAILY 10/10 1000 AC 10/14 PO 0856 Famotidine 20 MG DAILY 10/14 1101 AC PO Heparin Sodium 5,000 UNIT Q8 10/10 0600 AC 10/12 (Porcine) SC 2108 Insulin Aspart 0 Q4 10/13 0200 AC 10/14 SC 1321 Insulin Detemir 7 UNITS BID 10/13 2200 CAN SC 10/14 0000 Metoprolol Succinate 25 MG DAILY 10/10 1000 AC 10/14 PO 0857 Multivitamins 1 TAB DAILY 10/12 1530 AC 10/14 PO 0856 Naloxone HCl 0.4 MG ONCE ONE 10/14 1030 DC 10/14 IV 10/14 1031 1030 Omeprazole 40 MG DAILY AC 10/10 0700 DC 10/13 PO 0616 Ondansetron HCl 4 MG Q6P PRN 10/11 1330 AC 10/13 IV 1548 Oxycodone/ 2 TAB Q6P PRN 10/10 0500 AC 10/13 Acetaminophen PO 0641 Pentoxifylline 400 MG DAILY 10/10 1000 AC 10/14 PO 0856 Pravastatin Sodium 10 MG 1700 10/10 1700 AC 10/13 PO 1710 Sodium Chloride 1,000 ML Q13H 10/14 1100 AC 10/14 IV 1332 Tamsulosin HCl 0.4 MG DAILY 10/10 1000 AC 10/14 PO 0856 Valacyclovir HCl 1,000 MG DAILY 10/10 1000 AC 10/14 PO 0856 Zolpidem Tartrate 10 MG QPM PRN 10/10 2200 AC PO Last 24 Hrs of Lab/Lam Results Last 24 Hrs of Labs/Mics: Laboratory Tests 10/14/17 0744: Anion Gap 18 H, Estimated GFR 16 L, BUN/Creatinine Ratio 9.5, CBC w Diff NO MAN DIFF REQ, RBC 3.25 L, MCV 88.4, MCH 29.4, MCHC 33.2, RDW 14.8 H, MPV 9.7, Gran % 86.1 H, Lymphocytes % 4.4 L, Monocytes % 9.5 H, Eosinophils % 0, Basophils % 0, Absolute Granulocytes 7.5 H, Absolute Lymphocytes 0.4 L, Absolute Monocytes 0.8 H, Absolute Eosinophils 0, Absolute Basophils 0 Assessment/Plan Assessment: 82-year-old male with past medical history significant for coronary artery disease status post CA, stent placement on dual antiplatelet regimen, HIV with CD4 count 22 on prophylactic antibiotics Bactrim, azithromycin, valacyclovir, Prezcobix, dolutegravir, depression, hypertension, type 2 diabetes mellitus, GERD, BPH, recently discharged for fever of unknown origin, retroperitoneal lymphadenopathy questionable lymphoma presenting to the emergency room for left hip pain status post fall x2. Problem List: #Altered mental status (per event note on 10/14) of unknown etiology Patient was transferred to [facility] for evaluation of possible stroke/etiology of sudden onset of altered mental status. Patient vitals remained stable without significant EKG change at bedside, nor focal neurological deficit. CT Head showed possible evolving infarct however MRI was not available for stat check. Neurology consulted did not warrant TPA treatment as no neurological deficit and unkonw time of onset. - Will pursue MRI of brain - Fall precaution - NPO pending swallow eval - Continue IVF w/ normal saline for correction of hyponatremia as well (possble factor contributing to patient's AMS). - Change of plan on urology OR today, and may have a prabhakar insertion by Dr. Victoria - Follow ID recommendations. #Acute renal failure, likely from contrast use Patient's Cr elevated to 3.7 from 1.2 this morning, without significant elevation of BUN. Patient had also passed about 600mls urine overnight without signs of complete bladder obstruction. The most likely etiology of this ARF would be contrast-induced nephropathy. - Continue IVF pending above - monitor Cr - Nephrology consult if worsening. #fall Pt reports fall x2 and landed on L hip. He reported dizziness prior to the evening. Denied hitting his head. Denies any loss of consciousness, urine incontinence, bowel incontinence, seizures. Hip x-ray, pelvic x-ray, lumbar spine x-ray, head/ cervical spine CT negative for acute fractures VitD /B12 levels low -Continue vit D and multivtiamin supplmentation -PT recommends home PT -cont pain control -f/u ortho stats #FUO Tmax 24hrs: 99.5 this morning, however was 101 when rapid response was called Patient was last admitted for FUO. Possible cause maybe due to the retroperitoneal, left iliac and left inguinal lymphadenopathy Ucx and blood cx negative thus far Rapid fabián negative - CT Ab/pelvis w/ contrast did not show active infectious source including collection. -dc ceftriaxone per ID -continue HIV medications - Tylenol 650mg once for his spiked fever this morning. #Asymptomatic bacteriuria States minor dysuria Denies urgency, frequency, lower abdominal discomfort. UA + for moderate LE and WBC >75 Urine cx negative -stop ceftriaxone per ID -NPO @ midnight for CT abd/pelvis with oral and IV contrast, renal US - Patient had gross hematuria at night without being unstable on VS. Patient had no complaint so far. Pending Renal U/S and urology input on cystoscopy. #Acute kidney injury Initial Cr 1.7 (baseline 1.0) Latest Cr 1.2 -cont to monitor -Avoid nephrotoxins. -Avoid hydrochlorothiazide #HIV Last CD4 count 22 -continue prescobix and dolutragravir daily. -continue Bactrim, azithromycin, valacyclovir #DM Blood sugars running from 72-200 despite decreasing levemir to 10 units BID -f/u endocrinology consult, would decrease to Levemir 7 unit BID with previous Novolog SS. #Coronary artery disease status post stent placement -continue aspirin, statin, Plavix #Peripheral vascular disease -continue pentoxifylline 400 mg daily #Depression -continue Lexapro 10 mg daily #Hypertension -continue metoprolol. -hold hydrochlorothiazide #GERD -continue omeprazole #BPH s/p TURP -continue tamsulosin #Insomnia -continue zolpidem as needed for sleep #FULL CODE #DVT prophylaxis subcutaneous heparin Cerebrovascular Accident: CVA/TIA diagnose: yes, however Unspecific findings from CT head, pending MRI for confirmation NIH Stroke Scale: 8 however patient was untestable for questions Date of last known normal: 10/13/2017 Time of last known normal: 10:56PM 10/13/2017 Symptom start date: 10/14/2017 Symptom start time: Rapid response called at around 10:00AM 10/14/2017 Reason TPA not given: unknow onset time of symptoms Swallow eval: not done Current/past Hx of A-fib/A-flutter: No No antithrombotic d/t: Surgical contraindication No anticoagulation d/t: Surgical contraindication No statins d/t: Statins ordered Problem List: 1. Diabetes 2. ORTIZ (acute kidney injury) 3. Fever of unknown origin 4. Hematuria 5. BPH (benign prostatic hyperplasia) 6. Altered mental status Pain Ratin Pain Location: NA Pain Goal: Remain pain free Pain Plan: see AP Tomorrow's Labs & Rationales: CBC/BEP TamikoAngela 10/14/17 1404: Attending MD Review Statement Attending Statement Attending MD Statement: examined this patient, discuss w/resident/PA/WAVE SOLDERING MACHINE OPERATOR, agreed w/resident/PA/WAVE SOLDERING MACHINE OPERATOR, discussed with family, reviewed EMR data (avail), discussed with nursing, discussed with case mgmt, reviewed images, amended to note Attending Assessment/Plan: 82M PMH HIV positive for 15 years, noncompliant with antiretroviral therapy until recently, with a recent CD4 count of 22, h/ CAD s/p CA and stent, HTN, HLD , T2DM, BPH s/p recent TURP brought in by family for fall, dizziness, generalized weakness, hip pain and asymptomatic bacteriuria, weekend events with hypoglycemia. Patient ongoing work up for fever of unclear source. ID consulted and patient off antibiotics. CT abd/pelvis suggestive of bladder debris. Bladder hematoma versus presence of bacterial remnants, Bilateral hydronephrosis right greater than left, prostate enlargement. Patient seen/examined bedside. Nurse reported patient drowsy in am, unknown downtime. Rapid response called for altered mental status. Patient underwent CT head which showed evolving stroke in right medial cerebellar hemisphere. Neurology on phone not candidate of tpa. Patient is on antiplatelet therapy. Patient transferred to telemetry for frequent neurochecks. NPO, speech/swallow, pt/to , Neurology consult. carotid USG, echo, MRI brain for better evaluation of posterior circulation stroke. Acute kidney injury likely from contrast induced nephropathy or post renal failure likely obstructive. Urology f/u. Continue gentle hydration. Cystoscopy plan as per urology. Fever of unclear source, monitor off antibitoics, f/u ID. Neurology for risk optimisation for cystoscopy procedure. gi/dvt prophyalxis full code plan of care discussed with daughter bedside who agrees to management. 1. ORTIZ 2. H/O Hematuria s/p TUR 3. Generalized weakness 4. 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 H/o CAD on DAPT had stent > 1 year ago. 6. Fever work up ongoing. ?UTI Plan - f/u ID and urology. - Urine culture final c/s negative so far, Discontinued ceftriaxone. abx as per ID. - HAART as per ID. - antiplatelet therapy as per cardiology. - PT eval consult for dc planning. - DVT PPx.
--- NOTE | 2017-10-14 13:09 | PN- Infect Dx ---
Subjective Subjective: MAXIMUM TEMPERATURE 101. He was apparently found unresponsive this morning. He was given Narcan with some improvement. At present he does respond to commands but is minimally verbal. Objective Last 24 Hrs of Vital Signs/I&O Vital Signs Date Time Temp Pulse Resp B/P B/P Pulse O2 O2 Flow FiO2 Mean Ox Delivery Rate 10/14 1153 99.4 128 20 116/54 96 Room Air 10/14 1017 101.0 10/14 0857 99.5 107 20 124/64 10/14 0856 99.5 107 20 124/64 10/14 0658 99.5 107 20 124/64 95 Room Air 10/13 2256 98.3 93 20 112/62 97 Room Air 10/13 1424 98.1 72 20 112/78 98 Room Air Intake & Output 10/14 1600 10/14 0800 10/14 0000 Intake Total 600 Output Total Balance 600 Intake, IV 600 Number 1 1 Bowel Movements Physical Exam Other Physical Findings: He is awake and responsive, appearing in no acute distress Lungs are clear Heart regular rhythm with no murmur Abdomen is soft, nontender with positive bowel sounds Neuro without any obvious focality Results Last 24 Hours of Lab Results: Laboratory Tests 10/14 0744 Chemistry Sodium (137 - 145 mmol/L) 133 L Potassium (3.5 - 5.1 mmol/L) 5.1 Chloride (98 - 107 mmol/L) 96 L Carbon Dioxide (22 - 30 mmol/L) 19 L Anion Gap (5 - 16) 18 H BUN (9 - 20 mg/dL) 35 H Creatinine (0.7 - 1.2 mg/dL) 3.7 H Estimated GFR (>60 ml/min) 16 L BUN/Creatinine Ratio (7 - 25 %) 9.5 Hematology CBC w Diff NO MAN DIFF REQ WBC (4.8 - 10.8 /CUMM) 8.7 RBC (4.70 - 6.10 /CUMM) 3.25 L Hgb (14.0 - 18.0 G/DL) 9.6 L Hct (42 - 52 %) 28.8 L MCV (80.0 - 94.0 FL) 88.4 MCH (27.0 - 31.0 PG) 29.4 MCHC (33.0 - 37.0 G/DL) 33.2 RDW (11.5 - 14.5 %) 14.8 H Plt Count (130 - 400 /CUMM) 198 MPV (7.4 - 10.4 FL) 9.7 Gran % (42.2 - 75.2 %) 86.1 H Lymphocytes % (20.5 - 51.1 %) 4.4 L Monocytes % (1.7 - 9.3 %) 9.5 H Eosinophils % (0 - 5 %) 0 Basophils % (0.0 - 2.0 %) 0 Absolute Granulocytes (1.4 - 6.5 /CUMM) 7.5 H Absolute Lymphocytes (1.2 - 3.4 /CUMM) 0.4 L Absolute Monocytes (0.10 - 0.60 /CUMM) 0.8 H Absolute Eosinophils (0.0 - 0.7 /CUMM) 0 Absolute Basophils (0.0 - 0.2 /CUMM) 0 Last 24 Hours of Lam Results: Blood cultures 2 October 10 negative Recent Imaging Studies: CT of the head October 14 reveals an area of low attenuation in the left medial cerebellar hemisphere, possibly consistent with an evolving area of ischemia CT of the abdomen and pelvis with oral and IV contrast October 13 reveals a fluid layer within the bladder lumen with a significant amount of debris and stranding within the bladder; bilateral hydronephrosis, right greater than left; retroperitoneal lymphadenopathy and left inguinal lymphadenopathy; enlarged prostate Assessment/Plan Impression: Decreased responsiveness, possibly secondary to an evolving infarct, noted on the CT scan of the head from this morning. He remains febrile, most likely related to a urologic process, status post recent laser TURP, with hematuria and minimal urine output, now with evidence of acute renal failure, possibly secondary to obstruction, with the CT scan of the abdomen and pelvis yesterday revealing fluid within the bladder lumen with a significant amount of debris and stranding with bilateral hydronephrosis, versus contrast-induced nephropathy. He remains off antibiotics with recent blood and urine cultures negative. An opportunistic infection in this patient with AIDS and a low CD4 count (22 on last evaluation) is possible as well. His fever could be noninfectious in etiology for example drug fever. He remains off Bactrim, which he was on for PJP prophylaxis, for unclear reasons. His previous CT scans have revealed retroperitoneal, left inguinal and iliac lymphadenopathy, raising concern for lymphoma or metastatic prostate cancer, and a prostate biopsy will again need to be considered. Suggestion: 1. Further evaluation and management regarding a possible acute stroke per Medicine 2. Repeat blood cultures 2 and urine culture 3. Await Urology reevaluation for possible cystoscopy and prostate biopsy 4. Reevaluate/ investigate need for Valacyclovir prophylaxis 5. Continue Bactrim and Azithromycin prophylaxis
[2017-10-14 14:42] LABS: ABSOLUTE BASOPHIL COUNT 0 /CUMM (0.0-0.2); ABSOLUTE EOSINOPHIL COUNT 0 /CUMM (0.0-0.7); ABSOLUTE GRANULOCYTE CT 7.1 /CUMM (1.4-6.5); ABSOLUTE LYMPH COUNT 0.2 /CUMM (1.2-3.4); ABSOLUTE MONOCYTE COUNT 0.8 /CUMM (0.10-0.60); BASOPHIL % 0 % (0.0-2.0); EOSINOPHIL % 0 % (0-5); HEMATOCRIT 27.7 % (42-52); MEAN CORPUSCULAR HGB 28.4 PG (27.0-31.0); MEAN CORPUSCULAR HGB CONC 32.2 G/DL (33.0-37.0); MEAN CORPUSCULAR VOLUME 88.3 FL (80.0-94.0); MEAN PLATELET VOLUME 8.9 FL (7.4-10.4); PLATELET COUNT 181 /CUMM (130-400); RBC DISTRIBUTION WIDTH 15.3 % (11.5-14.5); RED BLOOD CELL CT 3.14 /CUMM (4.70-6.10); WHITE BLOOD CELL COUNT 8.1 /CUMM (4.8-10.8)
[2017-10-14 14:49] VITALS: BP 98/54
[2017-10-14 14:52] LABS: GRANULOCYTE % 88.6 % (42.2-75.2)
--- NOTE | 2017-10-14 17:21 | ULTRASOUND REPORT ---
EXAMINATION: DUPLEX BILATERAL CAROTID ULTRASOUND CLINICAL INFORMATION: Altered mental status, lethargy. COMPARISON: None. TECHNIQUE: Duplex bilateral carotid US was performed using real-time ultrasound and Doppler techniques (integrating B-mode 2D vascular images, Doppler spectral analysis and color flow Doppler imaging). These techniques were utilized to interrogate the extracranial carotid and vertebral arteries bilaterally. The degree of stenosis is based off criteria similar to NASCET. FINDINGS: 1. On the right: No plaque is present at the carotid bifurcation and all velocity measurements are normal and do not suggest a stenosis of greater than 50% diameter reduction in the right ICA. The vertebral artery is patent demonstrating antegrade flow. 2. On the left: Plaque is present at the carotid bifurcation but velocity measurements are normal and do not suggest a stenosis of greater than 50% diameter reduction in the left ICA. The vertebral artery is patent demonstrating antegrade flow. The external carotid arteries appear unremarkable. IMPRESSION: There is plaque present in the left internal carotid artery with normal velocities consistent with a minimal 0-49% stenosis. The right side is normal with no plaque seen.
--- NOTE | 2017-10-14 20:10 | Cons- Neurology ---
General Information and HPI Consulting Request Date of Consult: 10/14/17 Requested By: Tamiko BRAVO,Angela Source of Information: family History of Present Illness: 82-year-old male who has had multiple hospitalizations over the past month An earlier hospitalization occurred at [facility] when he was found confused and unable to get up from the floor Subsequent hospitalization due to again falls, and difficulty with walking Current admission again with a generalized weakness and confusion This morning he was unable to be aroused There was no convulsive activity noted There was no obvious head trauma He had developed urinary tract infections and is status post TURP There have been periods where he seemed to be hallucinating His daughter says that he was previously independent and ambulating on his own until this recent series of medical issues He has had CSF analysis in the past which was essentially not rewarding He has had CT which showed retroperitoneal lymphadenopathy Allergies/Medications Allergies: Coded Allergies: No Known Allergies (08/26/17) Home Med List: Ammonium Lactate 12 % LOTION 1 DILLAN TOP BID SKIN (Reported) Aspirin (Ecotrin*) 81 MG TABLET.DR 1 TAB PO DAILY HEART HEALTH (Reported) Azithromycin 600 MG TABLET 2 TAB PO QSUN ANTIBIOTIC (Reported) Clopidogrel Bisulfate (Clopidogrel) 75 MG TABLET 1 TAB PO DAILY HEART HEALTH (Reported) Darunavir/Cobicistat (Prezcobix 800 MG-150 MG Tablet) 800 MG-150 MG TABLET 1 TAB PO DAILY HIV (Reported) Desonide (Desowen) 0.05 % CREAM..G. 1 DILLAN TOP BID SKIN (Reported) apply to affected area(s) Diclofenac Sodium (Voltaren) 1 % GEL..GRAM. 1 DILLAN TOP BID PRN PAIN (Reported) apply to affected area(s) Dolutegravir Sodium (Tivicay) 50 MG TABLET 1 TAB PO DAILY HIV (Reported) Escitalopram Oxalate 10 MG TABLET 1 TAB PO DAILY DEPRESSION (Reported) Hydrochlorothiazide 12.5 MG CAPSULE 1 CAP PO DAILY HEART HEALTH (Reported) Insulin Glargine,Hum.rec.anlog (Toujeo Solostar) 300 UNIT/ML (1.5 ML) INSULN.PEN 40 UNIT SC DAILY DM (Reported) Metoprolol Succinate 25 MG TAB 1 TAB PO DAILY HEART HEALTH (Reported) Nut.tx.gluc.intoler,Lac-Fr,Soy (Glucerna) (Unknown Strength) LIQUID 1 BOT PO BID NUTRITIONAL SUPPLEMENT (Reported) Pantoprazole Sodium 40 MG TABLET.DR 1 TAB PO DAILY HEART HEALTH (Reported) Pentoxifylline 400 MG TABLET.ER 1 TAB PO DAILY UNKNOWN (Reported) Pravastatin Sodium 10 MG TABLET 1 TAB PO DAILY HEART HEALTH (Reported) [PREZCOBIX] 1 TAB PO DAILY RETROVIRAL Sitagliptin Phos/Metformin HCl (Janumet 50-1,000 MG Tablet) 50 MG-1,000 MG TABLET 1 TAB PO BID DM (Reported) Sulfamethoxazole/Trimethoprim (Sulfamethoxazole-Tmp Ds Tablet) 800 MG-160 MG TABLET 1 TAB PO Thursday ABT (Reported) Tamsulosin HCl 0.4 MG CAP.ER.24H 1 CAP PO DAILY ENLARGED PROSTATE (Reported) [Tivicay] 50 MG PO DAILY RETROVIRAL Valacyclovir HCl (Valacyclovir) 1,000 MG TABLET 1 TAB PO DAILY ANTIVIRAL ( Reported) Zolpidem Tartrate 10 MG TABLET 1 TAB PO QPMP SLEEP AIDE (Reported) Current Medications: Current Medications Sig/Juma Start time Last Medication Dose Route Stop Time Status Admin Acetaminophen 1,000 MG Q6P PRN 10/10 0500 AC 10/14 IV 1017 Ammonium Lactate 1 DILLAN BID 10/10 1000 AC 10/14 TOP 0858 Aspirin Buffered 81 MG DAILY 10/10 1000 AC 10/14 PO 0856 Atorvastatin Calcium 80 MG 1700 10/14 1700 AC PO Azithromycin 1,200 MG Wilkerson@1000 10/11 1000 AC 10/11 PO 1044 Cholecalciferol 1,000 IU DAILY 10/12 1445 AC 10/14 PO 0857 Dextrose/Sodium 1,000 ML Q13H 10/14 1745 DC Chloride IV Dextrose/Sodium 1,000 ML Q13H 10/13 2045 DC 10/14 Chloride IV 0855 Escitalopram Oxalate 10 MG DAILY 10/10 1000 AC 10/14 PO 0856 Famotidine 20 MG DAILY 10/14 1101 AC PO Heparin Sodium 5,000 UNIT Q8 10/10 0600 AC 10/12 (Porcine) SC 2108 Insulin Aspart 0 Q4 10/13 0200 AC 10/14 SC 1637 Metoprolol Succinate 25 MG DAILY 10/10 1000 AC 10/14 PO 0857 Multivitamins 1 TAB DAILY 10/12 1530 AC 10/14 PO 0856 Naloxone HCl 0.4 MG ONCE ONE 10/14 1030 DC 10/14 IV 10/14 1031 1030 Omeprazole 40 MG DAILY AC 10/10 0700 DC 10/13 PO 0616 Ondansetron HCl 4 MG Q6P PRN 10/11 1330 AC 10/13 IV 1548 Oxycodone/ 2 TAB Q6P PRN 10/10 0500 AC 10/13 Acetaminophen PO 0641 Pentoxifylline 400 MG DAILY 10/10 1000 AC 10/14 PO 0856 Pravastatin Sodium 10 MG 1700 10/10 1700 DC 10/13 PO 1710 Sodium Chloride 1,000 ML Q13H 10/14 1100 AC 10/14 IV 10/15 0759 1332 Tamsulosin HCl 0.4 MG DAILY 10/10 1000 AC 10/14 PO 0856 Valacyclovir HCl 1,000 MG DAILY 10/10 1000 AC 10/14 PO 0856 Zolpidem Tartrate 10 MG QPM PRN 10/10 2200 AC PO Review of Systems Review of Systems: Unable to be obtained from patient Patient's daughter states that he has not complained of headaches or diplopia or vertigo. He occasionally may have dizziness There is no complaint of chest pains or breathing difficulties or abdominal pain He does have incontinence secondary to TURP There has been no head injury/ has had occasional recent fevers He often uses a walker now when walking Past History Travel History Traveled to [place] past 21 day No Medical History Blood Transfusion Hx: No Neurological: NONE EENT: glaucoma Cardiovascular: CAD (s/p stent), hypertension, myocardial infarction Respiratory: NONE Gastrointestinal: GERD Hepatic: NONE Renal: benign prost hyperplasia Musculoskeletal: NONE Psychiatric: depression Endocrine: diabetes Blood Disorders: HIV Cancer(s): NONE [employer]/Reproductive: HIV Surgical History Surgical History: non-contributory Family History Relations & Conditions If Any: BROTHER Family hx of lung cancer Psychosocial History Services at Home: Home Health Aide, Occupational Therapy, Physical Therapy Smoking Status: Never Smoked ETOH Use: denies use Illicit Drug Use: denies illicit drug use Exam & Diagnostic Data Vital Signs and I&O Vital Signs Date Time Temp Pulse Resp B/P B/P Pulse O2 O2 Flow FiO2 Mean Ox Delivery Rate 10/14 1449 97.9 112 20 98/54 95 Room Air 10/14 1153 99.4 128 20 116/54 96 Room Air 10/14 1017 101.0 10/14 0857 99.5 107 20 124/64 10/14 0856 99.5 107 20 124/64 10/14 0658 99.5 107 20 124/64 95 Room Air 10/13 2256 98.3 93 20 112/62 97 Room Air Intake & Output 10/14 1600 10/14 0800 10/14 0000 Intake Total 0 600 Output Total 1850 Balance -1850 600 Intake, IV 600 Intake, Oral 0 Number 1 1 Bowel Movements Output, Urine 1850 Physical Exam: Initially difficult to arouse At times opens up his eyes and talks to his daughter relatively briefly There was no dysarthria and his daughter stated that he was making sense in [place] Heart sounds normal No carotid bruits Distal pulses intact Extraocular movements full Pupils equal reactive Fundi could not adequately be visualized, no facial weakness, sensory exam could not be assessed, tongue appeared midline, not cooperative for view of pharynx, shoulder seemed to move equally Mild increase in tone upper extremities and greater increase in tone in lower extremities Strength in upper extremities appears intact Does not cooperate for strength assessment and lower extremities Deep tendon reflexes 1+ bilateral Plantar response up bilateral Coordinative to functions grossly intact in upper extremities Patient at bedrest at present and too drowsy to assess gait Last 48 Hours of Lab Results: Laboratory Tests 10/14 10/14 10/14 10/14 10/14 1920 1415 1415 1415 1415 Chemistry Sodium Cancelled Potassium Cancelled Chloride Cancelled Carbon Dioxide Cancelled Anion Gap Cancelled BUN Cancelled Creatinine Cancelled BUN/Creatinine Ratio Cancelled Lactic Acid (0.7 - 2.1 mmol/L) Pending 2.3 H Troponin I Cancelled Prolactin Cancelled 10/14 10/14 1415 0719 Chemistry Sodium (137 - 145 mmol/L) 133 L 133 L Potassium (3.5 - 5.1 mmol/L) 4.4 5.1 Chloride (98 - 107 mmol/L) 98 96 L Carbon Dioxide (22 - 30 mmol/L) 18 L 19 L Anion Gap (5 - 16) 17 H 18 H BUN (9 - 20 mg/dL) 39 H 35 H Creatinine (0.7 - 1.2 mg/dL) 4.4 H 3.7 H Estimated GFR (>60 ml/min) 13 L 16 L BUN/Creatinine Ratio (7 - 25 %) 8.9 9.5 Total Bilirubin (0.2 - 1.3 mg/dL) 0.4 Direct Bilirubin (< 0.4 mg/dL) 0.4 AST (17 - 59 U/L) 13 L ALT (21 - 72 U/L) 20 L Alkaline Phosphatase (< 127 U/L) 103 Ammonia (9 - 30 umol/L) < 9 L Troponin I (<0.11 ng/ml) < 0.01 Total Protein (6.3 - 8.2 g/dL) 5.6 L Albumin (3.5 - 5.0 g/dL) 2.6 L Prolactin (3.7 - 17.9 ng/mL) 18.7 H Hematology CBC w Diff NO MAN DIFF REQ NO MAN DIFF REQ WBC (4.8 - 10.8 /CUMM) 8.1 8.7 RBC (4.70 - 6.10 /CUMM) 3.14 L 3.25 L Hgb (14.0 - 18.0 G/DL) 8.9 L 9.6 L Hct (42 - 52 %) 27.7 L 28.8 L MCV (80.0 - 94.0 FL) 88.3 88.4 MCH (27.0 - 31.0 PG) 28.4 29.4 MCHC (33.0 - 37.0 G/DL) 32.2 L 33.2 RDW (11.5 - 14.5 %) 15.3 H 14.8 H Plt Count (130 - 400 /CUMM) 181 198 MPV (7.4 - 10.4 FL) 8.9 9.7 Gran % (42.2 - 75.2 %) 88.6 H 86.1 H Lymphocytes % (20.5 - 51.1 %) 2.0 L 4.4 L Monocytes % (1.7 - 9.3 %) 9.4 H 9.5 H Eosinophils % (0 - 5 %) 0 0 Basophils % (0.0 - 2.0 %) 0 0 Absolute Granulocytes (1.4 - 6.5 /CUMM) 7.1 H 7.5 H Absolute Lymphocytes (1.2 - 3.4 /CUMM) 0.2 L 0.4 L Absolute Monocytes (0.10 - 0.60 /CUMM) 0.8 H 0.8 H Absolute Eosinophils (0.0 - 0.7 /CUMM) 0 0 Absolute Basophils (0.0 - 0.2 /CUMM) 0 0 10/13 10/13 0610 0600 Chemistry Sodium (137 - 145 mmol/L) 138 Cancelled Potassium (3.5 - 5.1 mmol/L) 4.2 Cancelled Chloride (98 - 107 mmol/L) 100 Cancelled Carbon Dioxide (22 - 30 mmol/L) 24 Cancelled Anion Gap (5 - 16) 15 Cancelled BUN (9 - 20 mg/dL) 18 Cancelled Creatinine (0.7 - 1.2 mg/dL) 1.2 Cancelled Estimated GFR (>60 ml/min) 58 L BUN/Creatinine Ratio (7 - 25 %) 15.0 Cancelled Hematology CBC w Diff NO MAN DIFF REQ Cancelled WBC (4.8 - 10.8 /CUMM) 5.9 Cancelled RBC (4.70 - 6.10 /CUMM) 3.56 L Cancelled Hgb (14.0 - 18.0 G/DL) 10.2 L Cancelled Hct (42 - 52 %) 31.6 L Cancelled MCV (80.0 - 94.0 FL) 88.8 Cancelled MCH (27.0 - 31.0 PG) 28.7 Cancelled MCHC (33.0 - 37.0 G/DL) 32.3 L Cancelled RDW (11.5 - 14.5 %) 14.6 H Cancelled Plt Count (130 - 400 /CUMM) 189 Cancelled MPV (7.4 - 10.4 FL) 8.5 Cancelled Gran % (42.2 - 75.2 %) 72.4 Lymphocytes % (20.5 - 51.1 %) 14.5 L Monocytes % (1.7 - 9.3 %) 13.0 H Eosinophils % (0 - 5 %) 0.1 Basophils % (0.0 - 2.0 %) 0 Absolute Granulocytes (1.4 - 6.5 /CUMM) 4.3 Absolute Lymphocytes (1.2 - 3.4 /CUMM) 0.9 L Absolute Monocytes (0.10 - 0.60 /CUMM) 0.8 H Absolute Eosinophils (0.0 - 0.7 /CUMM) 0 Absolute Basophils (0.0 - 0.2 /CUMM) 0 Imaging/Other Studies: CT BRAIN IMPRESSION: 1. There is a new area of low attenuation in the left medial cerebellar hemisphere, which may be consistent with an evolving infarct. Recommend further evaluation with MRI scan of the brain. 2. The study redemonstrates diffuse volume loss and chronic microvascular ischemic disease. Assessment/Plan Assessment: Mental status change accompanied by periods of diffuse weakness and difficulty walking No focal abnormalities on his exam Etiology still remains uncertain Throughout the examination at times he would cooperate and at times would not Recommendations: MRI scan to verify if patient had a posterior fossa infarct although unlikely to be related to his current symptoms EEG to assess for encephalopathy If not previously done thyroid function tests and B12 level should be obtained Consult Acknowledgment - Thank you for your consult request.
--- NOTE | 2017-10-14 21:25 | ELECTROENCEPHALOGRAM REPORT ---
Electroencephalogram Report Electroencephalogram Results Date of service: 10/14/17 Attending MD: Tamiko BRAVO,Angela Biomedical Electronics Technician: Daisy Castanon EEG Number: [id number] Test Utilizes: 10-20 system, 21 lead 18 channel digital recording Pertinent Hx/Physical/Neuro Findings/Clin Diagnosis: mental ststus change Inpatient Medications: Current Medications Sig/Juma Start time Last Medication Dose Route Stop Time Status Admin Acetaminophen 1,000 MG Q6P PRN 10/10 0500 AC 10/14 IV 1017 Ammonium Lactate 1 DILLAN BID 10/10 1000 AC 10/14 TOP 0858 Aspirin Buffered 81 MG DAILY 10/10 1000 AC 10/14 PO 0856 Atorvastatin Calcium 80 MG 1700 10/14 1700 AC PO Azithromycin 1,200 MG Wilkerson@1000 10/11 1000 AC 10/11 PO 1044 Cholecalciferol 1,000 IU DAILY 10/12 1445 AC 10/14 PO 0857 Dextrose/Sodium 1,000 ML Q13H 10/13 2045 DC 10/14 Chloride IV 0855 Escitalopram Oxalate 10 MG DAILY 10/10 1000 AC 10/14 PO 0856 Famotidine 20 MG DAILY 10/14 1101 AC PO Heparin Sodium 5,000 UNIT Q8 10/10 0600 AC 10/12 (Porcine) SC 2108 Insulin Aspart 0 Q4 10/13 0200 AC 10/14 SC 1637 Metoprolol Succinate 25 MG DAILY 10/10 1000 AC 10/14 PO 0857 Multivitamins 1 TAB DAILY 10/12 1530 AC 10/14 PO 0856 Naloxone HCl 0.4 MG ONCE ONE 10/14 1030 DC 10/14 IV 10/14 1031 1030 Omeprazole 40 MG DAILY AC 10/10 0700 DC 10/13 PO 0616 Ondansetron HCl 4 MG Q6P PRN 10/11 1330 AC 10/13 IV 1548 Oxycodone/ 2 TAB Q6P PRN 10/10 0500 AC 10/13 Acetaminophen PO 0641 Pentoxifylline 400 MG DAILY 10/10 1000 AC 10/14 PO 0856 Pravastatin Sodium 10 MG 1700 10/10 1700 DC 10/13 PO 1710 Sodium Chloride 1,000 ML Q13H 10/14 1100 AC 10/14 IV 10/15 0759 1332 Tamsulosin HCl 0.4 MG DAILY 10/10 1000 AC 10/14 PO 0856 Valacyclovir HCl 1,000 MG DAILY 10/10 1000 AC 10/14 PO 0856 Zolpidem Tartrate 10 MG QPM PRN 10/10 2200 AC PO Interpretation: EEG in wake and drowsy states During wakefulness the background is medium voltage 6-7 cps activity High-voltage 20-22 Inpatient Psychiatry activities are present anteriorly Muscle artifact and movement artifact are seen throughout the recording No focal or epileptiform activities are noted During drowsiness tobacco slows to medium voltage 4-5 cps activity Impression: Mild slowing on EEG background which is likely compatible with advanced age
[2017-10-14 22:16] VITALS: BP 146/62
[2017-10-15 06:40] VITALS: BP 146/62
--- NOTE | 2017-10-15 06:42 | PN- Housestaff ---
Emiliano BRAVO,Ana Luisa 10/15/17 0641: Subjective Follow-up For: Stroke, fever of unknown origin Complaints: no complaints Tele-Events Since Last Visit: Sinus rhythm heart rate 110 Subjective: Patient was seen and examined at bedside. His daughter was at the bedside. No overnight events. Patient still febrile. He is awake not alert or oriented. Not able to follow commands. Review of system unobtainable. Review of Systems Constitutional: Reports: no symptoms. Objective Last 24 Hrs of Vital Signs/I&O Vital Signs Date Time Temp Pulse Resp B/P B/P Pulse O2 O2 Flow FiO2 Mean Ox Delivery Rate 10/15 1024 114 146/62 10/15 0800 Room Air 10/15 0737 100.8 10/15 0640 102.3 114 16 146/62 96 Room Air 10/15 0617 102.3 10/14 2216 98.7 86 20 146/62 96 Room Air 10/14 1449 97.9 112 20 98/54 95 Room Air 10/14 1153 99.4 128 20 116/54 96 Room Air Intake & Output 10/15 1600 10/15 0800 10/15 0000 Intake Total 1200 2300 Output Total 1350 1875 Balance -150 425 Intake, IV 1200 2300 Intake, Oral 0 0 Output, Urine 1350 1875 Physical Exam General Appearance: awake, not alert not oriented Cardiovascular: Regular Rate, Normal S1, Normal S2, No Murmurs Lungs: Clear to Auscultation Abdomen: Soft, No Tenderness, No Hepatospenomegaly Neurological: could not be performed Extremities: No Edema Current Medications: Current Medications Sig/Juma Start time Last Medication Dose Route Stop Time Status Admin Acetaminophen 1,000 MG Q6P PRN 10/10 0500 AC 10/15 IV 0617 Ammonium Lactate 1 DILLAN BID 10/10 1000 AC 10/15 TOP 1027 Aspirin Buffered 81 MG DAILY 10/10 1000 AC 10/14 PO 0856 Atorvastatin Calcium 80 MG 1700 10/14 1700 AC PO Azithromycin 1,200 MG Wilkerson@1000 10/11 1000 AC 10/11 PO 1044 Cholecalciferol 1,000 IU DAILY 10/12 1445 AC 10/14 PO 0857 Dextrose/Sodium 1,000 ML Q20H 10/15 1000 AC 10/15 Chloride IV 0959 Dextrose/Sodium 1,000 ML Q13H 10/13 2045 DC 10/14 Chloride IV 0855 Escitalopram Oxalate 10 MG DAILY 10/10 1000 AC 10/14 PO 0856 Famotidine 20 MG DAILY 10/14 1101 AC PO Heparin Sodium 5,000 UNIT Q8 10/10 0600 AC 10/12 (Porcine) SC 2108 Insulin Aspart 0 Q4 10/13 0200 AC 10/15 SC 0624 Metoprolol Succinate 25 MG DAILY 10/10 1000 AC 10/14 PO 0857 Multivitamins 1 TAB DAILY 10/12 1530 AC 10/14 PO 0856 Ondansetron HCl 4 MG Q6P PRN 10/11 1330 AC 10/13 IV 1548 Oxycodone/ 2 TAB Q6P PRN 10/10 0500 AC 10/13 Acetaminophen PO 0641 Pentoxifylline 400 MG DAILY 10/10 1000 AC 10/14 PO 0856 Pravastatin Sodium 10 MG 1700 10/10 1700 DC 10/13 PO 1710 Sodium Chloride 1,000 ML Q13H 10/14 1100 DC 10/15 IV 10/15 0639 0100 Tamsulosin HCl 0.4 MG DAILY 10/10 1000 AC 10/14 PO 0856 Valacyclovir HCl 1,000 MG DAILY 10/10 1000 AC 10/14 PO 0856 Zolpidem Tartrate 10 MG QPM PRN 10/10 2200 AC PO Last 24 Hrs of Lab/Lam Results Last 24 Hrs of Labs/Mics: Laboratory Tests 10/15/17 0835: Anion Gap 16, Estimated GFR 19 L, BUN/Creatinine Ratio 13.1, CBC w Diff NO MAN DIFF REQ, RBC 2.64 L, MCV 87.2, MCH 29.3, MCHC 33.6, RDW 15.1 H, MPV 9.4, Gran % 84.5 H, Lymphocytes % 5.1 L, Monocytes % 10.4 H, Eosinophils % 0, Basophils % 0, Absolute Granulocytes 4.4, Absolute Lymphocytes 0.3 L, Absolute Monocytes 0.5, Absolute Eosinophils 0, Absolute Basophils 0 10/15/17 0245: Lactic Acid 1.0 10/14/17 2245: Lactic Acid 3.4 H 10/14/17 1920: Lactic Acid 1.1 10/14/17 1415: Troponin I Cancelled 10/14/17 1415: Prolactin Cancelled 10/14/17 1415: Lactic Acid 2.3 H 10/14/17 1415: Sodium Cancelled, Potassium Cancelled, Chloride Cancelled, Carbon Dioxide Cancelled, Anion Gap Cancelled, BUN Cancelled, Creatinine Cancelled, BUN/ Creatinine Ratio Cancelled 10/14/17 1415: Anion Gap 17 H, Estimated GFR 13 L, BUN/Creatinine Ratio 8.9, Total Bilirubin 0.4, Direct Bilirubin 0.4, AST 13 L, ALT 20 L, Alkaline Phosphatase 103, Ammonia < 9 L, Troponin I < 0.01, Total Protein 5.6 L, Albumin 2.6 L, TSH 0.520, Free T4 1.96 H, Prolactin 18.7 H, CBC w Diff NO MAN DIFF REQ, RBC 3.14 L, MCV 88.3, MCH 28.4, MCHC 32.2 L, RDW 15.3 H, MPV 8.9, Gran % 88.6 H, Lymphocytes % 2.0 L, Monocytes % 9.4 H, Eosinophils % 0, Basophils % 0, Absolute Granulocytes 7.1 H, Absolute Lymphocytes 0.2 L, Absolute Monocytes 0.8 H, Absolute Eosinophils 0, Absolute Basophils 0 Microbiology 10/15 0732 LOWER RESP: Respiratory Culture - COLB 10/15 0732 LOWER RESP: Gram Stain - COLB 10/14 1920 BLOOD: Blood Culture - RECD 10/14 1650 BLOOD: Blood Culture - RECD 10/14 1406 URINE ROUT: Urine Culture - COLB Assessment/Plan Assessment: 82-year-old male with past medical history significant for coronary artery disease status post WI, stent placement on dual antiplatelet regimen, HIV with CD4 count 22 on prophylactic antibiotics Bactrim, azithromycin, valacyclovir, Prezcobix, dolutegravir, depression, hypertension, type 2 diabetes mellitus, GERD, BPH, recently discharged for fever of unknown origin, retroperitoneal lymphadenopathy questionable lymphoma presenting to the emergency room for left hip pain status post fall x2. Problem List: #Altered mental status (per event note on 10/14) of unknown etiology Patient was transferred [facility] for evaluation of possible stroke/etiology of sudden onset of altered mental status. Patient vitals remained stable without significant EKG change at bedside, no focal neurological deficit. CT Head showed possible evolving infarct however MRI was not available for stat check. Neurology consulted did not warrant TPA treatment as no neurological deficit and unkonw time of onset. - Will pursue MRI of brain - Fall precaution - NPO pending swallow eval -We will start him on D5 half-normal saline at 50 mL per hour, since patient is nothing by mouth pending swallow eval and diabetic. Endo consult and was suggested to continue current management. - Patient is on continuous bladder irrigation aspiration urology Dr. Victoria. Urology follow-up appreciated. - Follow ID recommendations. #Acute renal failure, likely from contrast use Patient has acute renal failure secondary to contrast-induced nephropathy. We will continue IV fluids and monitor his renal parameters. - Nephrology consult if worsening. -Avoid nephrotoxins. -Avoid hydrochlorothiazide #fall Pt reports fall x2 and landed on L hip. He reported dizziness prior to the evening. Denied hitting his head. Denies any loss of consciousness, urine incontinence, bowel incontinence, seizures. Hip x-ray, pelvic x-ray, lumbar spine x-ray, head/ cervical spine CT negative for acute fractures VitD /B12 levels low -Continue vit D and multivtiamin supplmentation -PT recommends home PT -cont pain control -f/u ortho stats #FUO Tmax 24hrs: 102.3 this morning, Patient was last admitted for FUO. Possible cause maybe due to the retroperitoneal, left iliac and left inguinal lymphadenopathy Ucx and blood cx negative thus far Rapid flu negative - CT Ab/pelvis w/ contrast did not show active infectious source including collection. -dc ceftriaxone per ID -continue HIV medications - Tylenol 650mg once for his spiked fever this morning. #Asymptomatic bacteriuria UA + for moderate LE and WBC >75 Urine cx negative. Patient had a renal ultrasound done following hematuria which showed echogenic material in his bladder lumen. Urology was consulted who suggested continuous bladder irrigation. In view of his acute stroke cystoscopy was deferred for now. #HIV Last CD4 count 22 -continue prescobix and dolutragravir daily. -continue Bactrim, azithromycin, valacyclovir #DM His blood sugars 150-138. We will continue NovoLog coverage every 4 hours. #Coronary artery disease status post stent placement -continue aspirin, statin, Plavix #Peripheral vascular disease -continue pentoxifylline 400 mg daily #Depression -continue Lexapro 10 mg daily #Hypertension -continue metoprolol. -hold hydrochlorothiazide #GERD -continue omeprazole #BPH s/p TURP -continue tamsulosin #Insomnia -continue zolpidem as needed for sleep #FULL CODE #DVT prophylaxis subcutaneous heparin Code-full code Goals of care will be discussed with the family today. Problem List: 1. BPH (benign prostatic hyperplasia) 2. Acute renal failure 3. Weakness 4. Fall 5. Diabetes 6. Stroke Pain Ratin Pain Location: tylenol Pain Goal: Remain pain free Pain Plan: tylenol Tomorrow's Labs & Rationales: cbc,bep Levy BRAVO,Kendal 10/15/17 1421: Attending MD Review Statement Attending Statement Attending MD Statement: examined this patient, discuss w/resident/PA/SOLUTIONS DELIVERY CONSULTANT, agreed w/resident/PA/SOLUTIONS DELIVERY CONSULTANT, discussed with family, reviewed EMR data (avail), discussed with nursing, discussed with case mgmt, amended to note Attending Assessment/Plan: Patient seen and examined. EHR Reviewed. Daughter present at the bedside. Patient was very drowsy. Responded to name. Follows very simple commands like request to move his extremities. Unable to obtain any significant history from the patient. He has been afebrile with a T-max of 102.3. He is hemodynamically stable. On examination heart sounds are regular with no audible murmur. Lungs are clear to auscultation bilaterally. Abdomen soft and nontender. He has no peripheral edema. Continue bladder irrigation is in place he is extremely lethargic with no evidence of focal deficits on examination. By report of housestaff and the daughter mental status waxes and wanes all through the day. At times is very lethargic and minimally responsive and in occasion he has full conversations with his family. Head CT raise concern for new area of low attenuation in the left medial cerebellar hemisphere. MRI has been ordered for today. Carotid Doppler showed no hemodynamically significant stenosis. Problems: 1. Encephalopathy; possibly toxic/metabolic. 2. Abnormal head CT; reason concern for stroke. 3. Fever; unknown etiology. No obvious infectious etiology at present. Noninfectious etiology such as drug fever been considered as well. 4. AIDS; Patient is on Bactrim for Pneumocystis carinii prophylaxis as well as azithromycin. Last CD4 count was 22 5. Hematuria; Currently receiving continuous bladder irrigation. 6. Acute on chronic anemia. 7. Acute kidney injury. Plan: -Follow-up results of MRI. -Continue prophylactic antibiotic therapy as recommended by the ID service. -Follow-up urine cultures if feasible. - Repeat hemoglobin level later on today. Check stool guaiac.Transfuse if hemoglobin level is less than 7. -Renal function is improving. Continue to monitor closely.
--- NOTE | 2017-10-15 08:35 | PN- Diabetes ---
Assessment/Plan Assessment: Patient apparently had a rapid response yesterday. Today he opens his eyes but does not speak or answer questions. He may have had a CVA. At present he is on normal saline. He is also on NovoLog coverage every 4 hours for sugar above 150. Most recent sugars are 133, 159, and 168. The patient has developed acute kidney injury with a creatinine up to 4.4 today. Plan: Suggest change the patient's IV to D5 half-normal saline at 50 cc/h. Continue NovoLog coverage every 4 hours as needed. MRI of brain to be done. Renal consult Subjective Subjective: Does not answer question Objective Last 24 Hrs of Vital Signs/I&O Vital Signs Date Time Temp Pulse Resp B/P B/P Pulse O2 O2 Flow FiO2 Mean Ox Delivery Rate 10/15 0800 Room Air 10/15 0737 100.8 10/15 0640 102.3 114 16 146/62 96 Room Air 10/15 0617 102.3 10/14 2216 98.7 86 20 146/62 96 Room Air 10/14 1449 97.9 112 20 98/54 95 Room Air 10/14 1153 99.4 128 20 116/54 96 Room Air 10/14 1017 101.0 10/14 0857 99.5 107 20 124/64 10/14 0856 99.5 107 20 124/64 Intake & Output 10/15 1600 10/15 0800 10/15 0000 Intake Total 1200 2300 Output Total 1350 1875 Balance -150 425 Intake, IV 1200 2300 Intake, Oral 0 0 Output, Urine 1350 1875 Vital Signs Date Time Temp Pulse Resp B/P B/P Pulse O2 O2 Flow FiO2 Mean Ox Delivery Rate 10/15 0800 Room Air 10/15 0737 100.8 10/15 0640 102.3 114 16 146/62 96 Room Air 10/15 0617 102.3 10/14 2216 98.7 86 20 146/62 96 Room Air 10/14 1449 97.9 112 20 98/54 95 Room Air 10/14 1153 99.4 128 20 116/54 96 Room Air 10/14 1017 101.0 10/14 0857 99.5 107 20 124/64 10/14 0856 99.5 107 20 124/64 Intake & Output 10/15 1600 10/15 0800 10/15 0000 Intake Total 1200 2300 Output Total 1350 1875 Balance -150 425 Intake, IV 1200 2300 Intake, Oral 0 0 Output, Urine 1350 1875 Physical Exam General Appearance: lethargic Head: normal appearance Respiratory: normal breath sounds Cardiovascular: regular rate/rhythm Abdomen: normal bowel sounds Current Medications: Current Medications Sig/Juma Start time Last Medication Dose Route Stop Time Status Admin Acetaminophen 1,000 MG Q6P PRN 10/10 0500 AC 10/15 IV 0617 Ammonium Lactate 1 DILLAN BID 10/10 1000 AC 10/14 TOP 2332 Aspirin Buffered 81 MG DAILY 10/10 1000 AC 10/14 PO 0856 Atorvastatin Calcium 80 MG 1700 10/14 1700 AC PO Azithromycin 1,200 MG Wilkerson@1000 10/11 1000 AC 10/11 PO 1044 Cholecalciferol 1,000 IU DAILY 10/12 1445 AC 10/14 PO 0857 Dextrose/Sodium 1,000 ML Q13H 10/13 2045 DC 10/14 Chloride IV 0855 Escitalopram Oxalate 10 MG DAILY 10/10 1000 AC 10/14 PO 0856 Famotidine 20 MG DAILY 10/14 1101 AC PO Heparin Sodium 5,000 UNIT Q8 10/10 0600 AC 10/12 (Porcine) SC 2108 Insulin Aspart 0 Q4 10/13 0200 AC 10/15 SC 0624 Metoprolol Succinate 25 MG DAILY 10/10 1000 AC 10/14 PO 0857 Multivitamins 1 TAB DAILY 10/12 1530 AC 10/14 PO 0856 Naloxone HCl 0.4 MG ONCE ONE 10/14 1030 DC 10/14 IV 10/14 1031 1030 Omeprazole 40 MG DAILY AC 10/10 0700 DC 10/13 PO 0616 Ondansetron HCl 4 MG Q6P PRN 10/11 1330 AC 10/13 IV 1548 Oxycodone/ 2 TAB Q6P PRN 10/10 0500 AC 10/13 Acetaminophen PO 0641 Pentoxifylline 400 MG DAILY 10/10 1000 AC 10/14 PO 0856 Pravastatin Sodium 10 MG 1700 10/10 1700 DC 10/13 PO 1710 Sodium Chloride 1,000 ML Q13H 10/14 1100 DC 10/15 IV 10/15 0639 0100 Tamsulosin HCl 0.4 MG DAILY 10/10 1000 AC 10/14 PO 0856 Valacyclovir HCl 1,000 MG DAILY 10/10 1000 AC 10/14 PO 0856 Zolpidem Tartrate 10 MG QPM PRN 10/10 2200 AC PO Findings Pertinent Lab/Lam Results: Laboratory Tests 10/15 10/14 10/14 10/14 10/14 0245 2245 1920 1415 1415 Chemistry Lactic Acid (0.7 - 2.1 mmol/L) 1.0 3.4 H 1.1 Troponin I Cancelled Prolactin Cancelled 10/14 10/14 10/14 1415 1415 1415 Chemistry Sodium (137 - 145 mmol/L) Cancelled 133 L Potassium (3.5 - 5.1 mmol/L) Cancelled 4.4 Chloride (98 - 107 mmol/L) Cancelled 98 Carbon Dioxide (22 - 30 mmol/L) Cancelled 18 L Anion Gap (5 - 16) Cancelled 17 H BUN (9 - 20 mg/dL) Cancelled 39 H Creatinine (0.7 - 1.2 mg/dL) Cancelled 4.4 H Estimated GFR (>60 ml/min) 13 L BUN/Creatinine Ratio (7 - 25 %) Cancelled 8.9 Lactic Acid (0.7 - 2.1 mmol/L) 2.3 H Total Bilirubin (0.2 - 1.3 mg/dL) 0.4 Direct Bilirubin (< 0.4 mg/dL) 0.4 AST (17 - 59 U/L) 13 L ALT (21 - 72 U/L) 20 L Alkaline Phosphatase (< 127 U/L) 103 Ammonia (9 - 30 umol/L) < 9 L Troponin I (<0.11 ng/ml) < 0.01 Total Protein (6.3 - 8.2 g/dL) 5.6 L Albumin (3.5 - 5.0 g/dL) 2.6 L TSH (0.270 - 4.200 uIU/mL) 0.520 Free T4 (0.85 - 1.93 ng/dL) 1.96 H Prolactin (3.7 - 17.9 ng/mL) 18.7 H Hematology CBC w Diff NO MAN DIFF REQ WBC (4.8 - 10.8 /CUMM) 8.1 RBC (4.70 - 6.10 /CUMM) 3.14 L Hgb (14.0 - 18.0 G/DL) 8.9 L Hct (42 - 52 %) 27.7 L MCV (80.0 - 94.0 FL) 88.3 MCH (27.0 - 31.0 PG) 28.4 MCHC (33.0 - 37.0 G/DL) 32.2 L RDW (11.5 - 14.5 %) 15.3 H Plt Count (130 - 400 /CUMM) 181 MPV (7.4 - 10.4 FL) 8.9 Gran % (42.2 - 75.2 %) 88.6 H Lymphocytes % (20.5 - 51.1 %) 2.0 L Monocytes % (1.7 - 9.3 %) 9.4 H Eosinophils % (0 - 5 %) 0 Basophils % (0.0 - 2.0 %) 0 Absolute Granulocytes (1.4 - 6.5 /CUMM) 7.1 H Absolute Lymphocytes (1.2 - 3.4 /CUMM) 0.2 L Absolute Monocytes (0.10 - 0.60 /CUMM) 0.8 H Absolute Eosinophils (0.0 - 0.7 /CUMM) 0 Absolute Basophils (0.0 - 0.2 /CUMM) 0
[2017-10-15 09:36] LABS: ABSOLUTE BASOPHIL COUNT 0 /CUMM (0.0-0.2); ABSOLUTE EOSINOPHIL COUNT 0 /CUMM (0.0-0.7); ABSOLUTE GRANULOCYTE CT 4.4 /CUMM (1.4-6.5); ABSOLUTE LYMPH COUNT 0.3 /CUMM (1.2-3.4); ABSOLUTE MONOCYTE COUNT 0.5 /CUMM (0.10-0.60); BASOPHIL % 0 % (0.0-2.0); EOSINOPHIL % 0 % (0-5); MEAN CORPUSCULAR HGB 29.3 PG (27.0-31.0); MEAN CORPUSCULAR HGB CONC 33.6 G/DL (33.0-37.0); MEAN CORPUSCULAR VOLUME 87.2 FL (80.0-94.0); MEAN PLATELET VOLUME 9.4 FL (7.4-10.4); PLATELET COUNT 151 /CUMM (130-400); RBC DISTRIBUTION WIDTH 15.1 % (11.5-14.5); RED BLOOD CELL CT 2.64 /CUMM (4.70-6.10); WHITE BLOOD CELL COUNT 5.2 /CUMM (4.8-10.8)
[2017-10-15 10:38] LABS: GRANULOCYTE % 84.5 % (42.2-75.2)
[2017-10-15 14:20] VITALS: BP 136/82
--- NOTE | 2017-10-15 14:21 | PN- Infect Dx ---
Subjective Subjective: MAXIMUM TEMPERATURE 102.3. He does not offer any specific complaints. Objective Last 24 Hrs of Vital Signs/I&O Vital Signs Date Time Temp Pulse Resp B/P B/P Pulse O2 O2 Flow FiO2 Mean Ox Delivery Rate 10/15 1024 114 146/62 10/15 0800 Room Air 10/15 0737 100.8 10/15 0640 102.3 114 16 146/62 96 Room Air 10/15 0617 102.3 10/14 2216 98.7 86 20 146/62 96 Room Air 10/14 1449 97.9 112 20 98/54 95 Room Air Intake & Output 10/15 1600 10/15 0800 10/15 0000 Intake Total 1200 2300 Output Total 1350 1875 Balance -150 425 Intake, IV 1200 2300 Intake, Oral 0 0 Output, Urine 1350 1875 Patient 160 lb Weight Physical Exam Other Physical Findings: He is lethargic but arousable, less verbal than usual Lungs are clear Heart regular rhythm with no murmur Abdomen is soft, nontender with positive bowel sounds Back no CVA tenderness Extremities no cyanosis, clubbing or edema Eduardo catheter is in place Results Last 24 Hours of Lab Results: Laboratory Tests 10/15 10/15 10/14 10/14 0835 0245 2245 1920 Chemistry Sodium (137 - 145 mmol/L) 142 Potassium (3.5 - 5.1 mmol/L) 4.2 Chloride (98 - 107 mmol/L) 107 Carbon Dioxide (22 - 30 mmol/L) 19 L Anion Gap (5 - 16) 16 BUN (9 - 20 mg/dL) 42 H Creatinine (0.7 - 1.2 mg/dL) 3.2 H Estimated GFR (>60 ml/min) 19 L BUN/Creatinine Ratio (7 - 25 %) 13.1 Lactic Acid (0.7 - 2.1 mmol/L) 1.0 3.4 H 1.1 Hematology CBC w Diff NO MAN DIFF REQ WBC (4.8 - 10.8 /CUMM) 5.2 RBC (4.70 - 6.10 /CUMM) 2.64 L Hgb (14.0 - 18.0 G/DL) 7.7 L Hct (42 - 52 %) 23.0 L MCV (80.0 - 94.0 FL) 87.2 MCH (27.0 - 31.0 PG) 29.3 MCHC (33.0 - 37.0 G/DL) 33.6 RDW (11.5 - 14.5 %) 15.1 H Plt Count (130 - 400 /CUMM) 151 MPV (7.4 - 10.4 FL) 9.4 Gran % (42.2 - 75.2 %) 84.5 H Lymphocytes % (20.5 - 51.1 %) 5.1 L Monocytes % (1.7 - 9.3 %) 10.4 H Eosinophils % (0 - 5 %) 0 Basophils % (0.0 - 2.0 %) 0 Absolute Granulocytes (1.4 - 6.5 /CUMM) 4.4 Absolute Lymphocytes (1.2 - 3.4 /CUMM) 0.3 L Absolute Monocytes (0.10 - 0.60 /CUMM) 0.5 Absolute Eosinophils (0.0 - 0.7 /CUMM) 0 Absolute Basophils (0.0 - 0.2 /CUMM) 0 10/14 10/14 10/14 10/14 1415 1415 1415 1415 Chemistry Sodium Cancelled Potassium Cancelled Chloride Cancelled Carbon Dioxide Cancelled Anion Gap Cancelled BUN Cancelled Creatinine Cancelled BUN/Creatinine Ratio Cancelled Lactic Acid (0.7 - 2.1 mmol/L) 2.3 H Troponin I Cancelled Prolactin Cancelled 10/14 1415 Chemistry Sodium (137 - 145 mmol/L) 133 L Potassium (3.5 - 5.1 mmol/L) 4.4 Chloride (98 - 107 mmol/L) 98 Carbon Dioxide (22 - 30 mmol/L) 18 L Anion Gap (5 - 16) 17 H BUN (9 - 20 mg/dL) 39 H Creatinine (0.7 - 1.2 mg/dL) 4.4 H Estimated GFR (>60 ml/min) 13 L BUN/Creatinine Ratio (7 - 25 %) 8.9 Total Bilirubin (0.2 - 1.3 mg/dL) 0.4 Direct Bilirubin (< 0.4 mg/dL) 0.4 AST (17 - 59 U/L) 13 L ALT (21 - 72 U/L) 20 L Alkaline Phosphatase (< 127 U/L) 103 Ammonia (9 - 30 umol/L) < 9 L Troponin I (<0.11 ng/ml) < 0.01 Total Protein (6.3 - 8.2 g/dL) 5.6 L Albumin (3.5 - 5.0 g/dL) 2.6 L TSH (0.270 - 4.200 uIU/mL) 0.520 Free T4 (0.85 - 1.93 ng/dL) 1.96 H Prolactin (3.7 - 17.9 ng/mL) 18.7 H Hematology CBC w Diff NO MAN DIFF REQ WBC (4.8 - 10.8 /CUMM) 8.1 RBC (4.70 - 6.10 /CUMM) 3.14 L Hgb (14.0 - 18.0 G/DL) 8.9 L Hct (42 - 52 %) 27.7 L MCV (80.0 - 94.0 FL) 88.3 MCH (27.0 - 31.0 PG) 28.4 MCHC (33.0 - 37.0 G/DL) 32.2 L RDW (11.5 - 14.5 %) 15.3 H Plt Count (130 - 400 /CUMM) 181 MPV (7.4 - 10.4 FL) 8.9 Gran % (42.2 - 75.2 %) 88.6 H Lymphocytes % (20.5 - 51.1 %) 2.0 L Monocytes % (1.7 - 9.3 %) 9.4 H Eosinophils % (0 - 5 %) 0 Basophils % (0.0 - 2.0 %) 0 Absolute Granulocytes (1.4 - 6.5 /CUMM) 7.1 H Absolute Lymphocytes (1.2 - 3.4 /CUMM) 0.2 L Absolute Monocytes (0.10 - 0.60 /CUMM) 0.8 H Absolute Eosinophils (0.0 - 0.7 /CUMM) 0 Absolute Basophils (0.0 - 0.2 /CUMM) 0 Last 24 Hours of Lam Results: Blood cultures October 14 negative Assessment/Plan Impression: Recurrent fevers of unclear etiology with recent blood cultures negative and with his recent CT scan of the abdomen and pelvis negative for any obvious focus of infection. He is less responsive than usual, possibly secondary to the possible infarct noted on the recent CT scan, and an MRI is to be done later today. He does have hematuria, status post a recent laser TURP, and a urologic source of infection is possible, but, as he is currently undergoing continuous bladder irrigation, it may be difficult to obtain a urine culture. His renal function is improving, possibly related to insertion of the Eduardo catheter or to resolution of a contrast-induced nephropathy. An opportunistic infection in this patient with AIDS and a low CD4 count (22 on last evaluation) is possible, but there is no obvious focus. His fever could be noninfectious in etiology for example drug fever, but there are no obvious medications to implicate. He remains off Bactrim, which he was on for PJP prophylaxis, for unclear reasons. His previous CT scans have revealed retroperitoneal, left inguinal and iliac lymphadenopathy, raising concern for lymphoma or metastatic prostate cancer, and a prostate biopsy will again need to be considered. Suggestion: 1. Await MRI of the head 2. Obtain a urine culture when feasible 3. Further evaluation and management of his hematuria, with possible cystoscopy and prostate biopsy, per Urology 4. Reevaluate/ investigate need for Valacyclovir prophylaxis 5. Continue Bactrim (need to restart) and Azithromycin prophylaxis
--- NOTE | 2017-10-15 15:54 | MRI REPORT ---
EXAMINATION: MR BRAIN WITHOUT CONTRAST CLINICAL INFORMATION: HIV patient with low CD4 count. Assess for malignancy. Assess for acute pathology. Lethargic and unresponsive. COMPARISON: CT scan of the head 10/04/2017. The prior study demonstrated an equivocal area of low attenuation in the left medial cerebellar hemisphere. TECHNIQUE: MRI of the brain without contrast was obtained using routine sequences. FINDINGS: There is no restricted diffusion to suggest an acute infarct. There is a punctate area of increased diffusion signal without restriction in the right centrum semiovale, corresponding to a focus of T2 and FLAIR hyperintensity, consistent with a subacute area of ischemia. No restricted diffusion is noted in the cerebellum. No mass effect or midline shift is seen. The ventricles and sulci are commensurately prominent consistent with moderate diffuse volume loss. There are relatively extensive areas of T2 and FLAIR hyperintensity in the periventricular and subcortical white matter and in the kathy, consistent with chronic microvascular ischemic disease. There is likely a lacunar infarct in the left caudate body. No extra-axial fluid collections are seen. The brainstem and cerebellum are normal. No pathologic magnetic susceptibility artifact is identified on the gradient refocused acquisition. The craniovertebral junction, marrow signal, and midline structures are normal. The major intracranial flow-voids at the level of the [place] are preserved. The dural venous sinus flow-voids are maintained. There have been bilateral lens extractions. There is retention cyst formation in the inferior right maxillary sinus. IMPRESSION: 1. No acute infarcts are demonstrated in the cerebellum or elsewhere. 2. There is a small focus of diffusion hyperintensity without low ADC map signal in the right centrum semiovale consistent with subacute areas of ischemia. 3. There is moderate diffuse volume loss and there are relatively extensive chronic microvascular ischemic changes.
--- NOTE | 2017-10-15 19:27 | ECHOCARDIOGRAM REPORT ---
TRAVIS PRYOR Age: 82 : 1935 Gender: M Exam Date: 10/14/2017 17:06 Exam Location: [place] Ht (in): 67 Wt (lb): 160 BSA: 1.86 BP: 116 / 54 Ordering Physician: Becka Johnson MD Referring Physician: Alan Rees MD Technologist: Cheli Kumar [facility] Room Number: 179-01 Indications: STROKE Rhythm: Sinus Technical Quality: Fair FINDINGS Left Ventricle Normal size left ventricle. Normal left ventricular wall thickness. Normal left ventricular ejection fraction visually estimated at > 60%. Normal left ventricular wall motion. Right Ventricle Normal right ventricular size and function. Right Atrium Normal right atrial size. Left Atrium Mild left atrial dilatation. Mitral Valve Mitral valve thickened. Trace mitral regurgitation. Aortic Valve Diffuse thickening (sclerosis) of the aortic valve cusps without reduced excursion. Mild aortic regurgitation. No aortic stenosis. Tricuspid Valve Tricuspid valve not well visualized, grossly normal. Mild tricuspid regurgitation. No evidence of pulmonary hypertension. Pulmonic Valve Pulmonic valve not well visualized, grossly normal. Pericardium No pericardial effusion. Great Vessels Normal size aortic root. CONCLUSIONS Normal size left ventricle. Normal left ventricular wall thickness. Normal left ventricular ejection fraction visually estimated at > 60%. Mild left atrial dilatation. Mild aortic regurgitation. Mild tricuspid regurgitation. Alan Rees M.D. (Electronically Signed) Final Date: 15 October 2017 19:27 MEASUREMENTS (Male / Female) Normal Values 2D ECHO LV Diastolic Diameter PLAX 4.6 cm 4.2 - 5.9 / 3.9 - 5.3 cm LV Systolic Diameter PLAX 2.9 cm 2.1 - 4.0 cm LV Fractional Shortening PLAX 37.0 % 25 - 46 % LV Ejection Fraction 2D Teich 66.9 % IVS Diastolic Thickness 1.1 cm LVPW Diastolic Thickness 1.1 cm LV Relative Wall Thickness 0.5 RV Internal Dim ED PLAX 3.6 cm 1.9 - 3.8 cm LVOT Diameter 2.0 cm Aortic Root Diameter 3.6 cm LA Systolic Diameter LX 4.5 cm 3.0 - 4.0 / 2.7 - 3.8 cm LA Volume 51.0 cm 18 - 58 / 22 - 52 cm Ascending Aorta Diameter 3.5 cm DOPPLER AV Peak Velocity 147.0 cm/s AV Peak Gradient 8.6 mmHg AV Mean Velocity 99.7 cm/s AV Mean Gradient 5.0 mmHg AV Velocity Time Integral 31.9 cm LVOT Peak Velocity 112.0 cm/s LVOT Peak Gradient 5.0 mmHg LVOT Mean Velocity 72.2 cm/s LVOT Mean Gradient 2.0 mmHg LVOT Velocity Time Integral 23.2 cm LVOT Stroke Volume 72.9 cm AV Area Cont Eq vti 2.3 cm AV Area Cont Eq pk 2.4 cm MV Peak Velocity 86.8 cm/s MV Peak Gradient 3.0 mmHg MV Mean Velocity 59.8 cm/s MV Mean Gradient 2.0 mmHg Mitral E Point Velocity 73.5 cm/s Mitral A Point Velocity 71.1 cm/s Mitral E to A Ratio 1.0 MV PHT Velocity 86.9 cm/s MV Deceleration Cambria 245.0 cm/s MV Pressure Half Time 106.4 ms MV Area PHT 2.1 cm MV Deceleration Time 256.0 ms TR Peak Velocity 222.0 cm/s TR Peak Gradient 19.7 mmHg Right Atrial Pressure 5.0 mmHg Pulmonary Artery Systolic Pressu 24.7 mmHg Right Ventricular Systolic Press 24.7 mmHg PV Peak Velocity 108.0 cm/s PV Peak Gradient 4.7 mmHg PV Mean Velocity 76.5 cm/s PV Mean Gradient 3.0 mmHg PV Velocity Time Integral 21.8 cm LV E' Lateral Velocity 9.3 cm/s Mitral E to LV E' Lateral Ratio 7.9 LV E' Septal Velocity 5.3 cm/s Mitral E to LV E' Septal Ratio 14.0
--- NOTE | 2017-10-15 22:11 | Event Note ---
Event Note Event Note: S:At approximately 2200, informed by nursing patient was hypotensive and lethargic B: Patient's H/H has been dropping's over the last several days, patient has been losing blood through Eduardo catheter. Patient was transferred to Telemetry floor today after a rapid response due to lethargy and unresponsiveness. AR: VS: T 99.3, P 80, RR 18, BP 88/44, Pulse ox 97% on RA Patient was seen in assisted bedside. He was lethargic but responded to commands. He is nonverbal but is nonverbal at baseline based on previous notes. Heart, lung, and abdominal examination within normal limits. Eduardo catheter in place, draining blood tinginged urine with clots. Recheck of BP at bedside was 106/62. Patient was given 1 L bolus of NS and stat CBC was drawn. CBC showed acute drop in H/H to 6.3/19.4 As patient was unable to provide consent his daughter, Yandy Jarvis, was called and gave consent for transfusion. 1 unit PRBC was given.
[2017-10-15 22:18] VITALS: BP 88/44
[2017-10-15 22:45] VITALS: BP 88/44
[2017-10-15 23:00] LABS: ABSOLUTE BASOPHIL COUNT 0 /CUMM (0.0-0.2); ABSOLUTE EOSINOPHIL COUNT 0 /CUMM (0.0-0.7); ABSOLUTE LYMPH COUNT 0.3 /CUMM (1.2-3.4); ABSOLUTE MONOCYTE COUNT 0.5 /CUMM (0.10-0.60); BASOPHIL % 0.3 % (0.0-2.0); EOSINOPHIL % 0 % (0-5); MEAN CORPUSCULAR HGB 28.6 PG (27.0-31.0); MEAN CORPUSCULAR HGB CONC 32.6 G/DL (33.0-37.0); MEAN CORPUSCULAR VOLUME 87.7 FL (80.0-94.0); MEAN PLATELET VOLUME 9.2 FL (7.4-10.4); PLATELET COUNT 164 /CUMM (130-400); RBC DISTRIBUTION WIDTH 15.8 % (11.5-14.5); RED BLOOD CELL CT 2.21 /CUMM (4.70-6.10); WHITE BLOOD CELL COUNT 4.7 /CUMM (4.8-10.8)
[2017-10-15 23:04] LABS: HEMATOCRIT 19.4 % (42-52)
[2017-10-15 23:05] LABS: GRANULOCYTE % 84.2 % (42.2-75.2)
[2017-10-16 05:58] VITALS: BP 106/58
--- NOTE | 2017-10-16 07:05 | PN- Housestaff ---
Ana Luisa Cummings MD 10/16/17 0705: Subjective Follow-up For: hiv,fuo Complaints: no complaints Tele-Events Since Last Visit: nsr Subjective: Pt was seen and examined at bedside. Patient is awake, oriented 1, confused and lethargic. Able to follow some of the commands. He is nothing by mouth pending swallow eval. He is on Continuous bladder irrigation. He denied chest pain, chest pressure, nausea, vomiting, weakness. Review of Systems Constitutional: Reports: no symptoms. Cardiovascular: Reports: no symptoms. Respiratory: Reports: no symptoms. Gastrointestinal: Reports: no symptoms. Genitourinary: Reports: no symptoms. Musculoskeletal: Reports: no symptoms. Objective Last 24 Hrs of Vital Signs/I&O Vital Signs Date Time Temp Pulse Resp B/P B/P Pulse O2 O2 Flow FiO2 Mean Ox Delivery Rate 10/16 0558 99.3 85 20 106/58 97 Room Air 10/16 0157 100.4 10/16 0055 100.8 10/16 0026 100.8 10/15 2245 99.3 80 18 88/44 97 Room Air 10/15 2218 88/44 10/15 1804 100.3 10/15 1705 103.1 10/15 1700 103.1 10/15 1420 99.1 112 18 136/82 95 Room Air 10/15 1024 114 146/62 Intake & Output 10/16 1600 10/16 0800 10/16 0000 Intake Total 1450 400 Output Total 400 900 Balance 1050 -500 Intake, Blood 350 Product Intake, IV 1100 400 Intake, Oral 0 0 Output, Urine 400 900 Physical Exam General Appearance: Alert, Cooperative, No Acute Distress, oriented 1 Skin: No Rashes Neck: Supple, No JVD, No thryomegaly Cardiovascular: Regular Rate, Normal S1, Normal S2, No Murmurs Lungs: Clear to Auscultation Abdomen: Normal Bowel Sounds, Soft, No Tenderness Neurological: strength 3 x 5 in upper limbs, 2 x 5 lower lid Extremities: No Edema Current Medications: Current Medications Sig/Juma Start time Last Medication Dose Route Stop Time Status Admin Acetaminophen 1,000 MG Q6P PRN 10/15 1730 AC 10/16 N/A 1 UNIT IV 0055 Acetaminophen 1,000 MG Q6P PRN 10/10 0500 DC 10/15 IV 1705 Ammonium Lactate 1 DILLAN BID 10/10 1000 AC 10/15 TOP 2109 Aspirin Buffered 81 MG DAILY 10/10 1000 DC 10/14 PO 0856 Atorvastatin Calcium 80 MG 1700 10/14 1700 AC PO Azithromycin 1,200 MG Wilkerson@1000 10/11 1000 AC 10/11 PO 1044 Cholecalciferol 1,000 IU DAILY 10/12 1445 AC 10/14 PO 0857 Dextrose/Sodium 1,000 ML Q20H 10/15 1000 AC 10/15 Chloride IV 0959 Escitalopram Oxalate 10 MG DAILY 10/10 1000 AC 10/14 PO 0856 Famotidine 20 MG DAILY 10/14 1101 AC PO Heparin Sodium 5,000 UNIT Q8 10/10 0600 AC 10/15 (Porcine) SC 1507 Insulin Aspart 0 Q4 10/13 0200 AC 10/16 SC 0620 Metoprolol Succinate 25 MG DAILY 10/10 1000 AC 10/14 PO 0857 Multivitamins 1 TAB DAILY 10/12 1530 AC 10/14 PO 0856 Ondansetron HCl 4 MG Q6P PRN 10/11 1330 AC 10/13 IV 1548 Oxycodone/ 2 TAB Q6P PRN 10/10 0500 AC 10/13 Acetaminophen PO 0641 Pentoxifylline 400 MG DAILY 10/10 1000 AC 10/14 PO 0856 Sodium Chloride 1,000 ML BOLUS ONE 10/15 2200 DC 10/15 IV 10/15 2359 2215 Tamsulosin HCl 0.4 MG DAILY 10/10 1000 AC 10/14 PO 0856 Trimethoprim/ 1 TAB THURSDAY WED MONDAY 10/16 1000 AC Sulfamethoxazole PO 10/17 0959 Valacyclovir HCl 1,000 MG DAILY 10/10 1000 AC 10/14 PO 0856 Zolpidem Tartrate 10 MG QPM PRN 10/10 2200 AC PO Last 24 Hrs of Lab/Lam Results Last 24 Hrs of Labs/Mics: Laboratory Tests 10/16/17 0635: Anion Gap 15, Estimated GFR 34 L, BUN/Creatinine Ratio 21.1 10/16/17 0600: CBC w Diff Cancelled, WBC Cancelled, RBC Cancelled, Hgb Cancelled, Hct Cancelled , MCV Cancelled, MCH Cancelled, MCHC Cancelled, RDW Cancelled, Plt Count Cancelled, MPV Cancelled 10/15/17 2232: CBC w Diff NO MAN DIFF REQ, RBC 2.21 L, MCV 87.7, MCH 28.6, MCHC 32.6 L, RDW 15.8 H, MPV 9.2, Gran % 84.2 H, Lymphocytes % 5.9 L, Monocytes % 9.6 H, Eosinophils % 0, Basophils % 0.3, Absolute Granulocytes 4.0, Absolute Lymphocytes 0.3 L, Absolute Monocytes 0.5, Absolute Eosinophils 0, Absolute Basophils 0 Microbiology 10/15 1423 URINE ROUT: Urine Culture - COLB Assessment/Plan Assessment: 82-year-old male with past medical history significant for coronary artery disease status post MD, stent placement on dual antiplatelet regimen, HIV with CD4 count 22 on prophylactic antibiotics Bactrim, azithromycin, valacyclovir, Prezcobix, dolutegravir, depression, hypertension, type 2 diabetes mellitus, GERD, BPH, recently discharged for fever of unknown origin, retroperitoneal lymphadenopathy questionable lymphoma presenting to the emergency room for left hip pain status post fall x2. Problem List: #Altered mental status Patient was transferred to [facility] for evaluation of possible stroke/etiology of sudden onset of altered mental status. Patient vitals remained stable without significant EKG change at bedside, no focal neurological deficit. CT Head showed possible evolving infarct however MRI was negative. Neurology consulted did not warrant TPA treatment as no neurological deficit and unkonw time of onset. - Fall precaution - NPO pending swallow eval -We will continue him on D5 half-normal saline at 50 mL per hour, since patient is nothing by mouth pending swallow eval and diabetic. Endo consult and was suggested to continue current management. - Patient is on continuous bladder irrigation aspiration urology Dr. Victoria. Urology follow-up appreciated. - Follow ID recommendations. #Acute renal failure, likely from contrast use Patient has acute renal failure secondary to contrast-induced nephropathy. We will continue IV fluids and monitor his renal parameters. Today BP and 40, creatinine 1.9. - Nephrology consult if worsening. -Avoid nephrotoxins. -Avoid hydrochlorothiazide #fall Hip x-ray, pelvic x-ray, lumbar spine x-ray, head/ cervical spine CT negative for acute fractures VitD /B12 levels low. On vitamin D and calcium supplementation. -Continue vit D and multivtiamin supplmentation -PT recommends home PT -cont pain control #FUO Tmax 24hrs: 100.8 this morning, Patient was last admitted for FUO. Possible cause maybe due to the retroperitoneal, left iliac and left inguinal lymphadenopathy Ucx and blood cx , sputum culture thus far negative Rapid flu negative - CT Ab/pelvis w/ contrast did not show active infectious source including collection. -dc ceftriaxone per ID and continue azithromycin and Bactrim for prophylaxis. -continue HIV medications - Tylenol 650mg once for his spiked fever this morning. #Asymptomatic bacteriuria UA + for moderate LE and WBC >75 Urine cx negative. Patient had a renal ultrasound done following hematuria which showed echogenic material in his bladder lumen. Urology was consulted who suggested continuous bladder irrigation. In view of his acute stroke cystoscopy was deferred for now. We sent a urine culture today. #HIV Last CD4 count 22 -continue prescobix and dolutragravir daily. -continue Bactrim, azithromycin, valacyclovir #DM His blood sugars 150-138. We will continue NovoLog coverage every 4 hours. #Coronary artery disease status post stent placement -continue aspirin, statin, Plavix #Peripheral vascular disease -continue pentoxifylline 400 mg daily #Depression -continue Lexapro 10 mg daily #Hypertension -continue metoprolol. -hold hydrochlorothiazide #GERD -continue omeprazole #BPH s/p TURP -continue tamsulosin #Insomnia -continue zolpidem as needed for sleep #FULL CODE #DVT prophylaxis subcutaneous heparin Code-full code Goals of care was discussed with the family , They want all measures to be continued. Update-spoke with Dr. Holcomb neurologist who said he discussed with Dr. Aquino yesterday and wanted to lumbar puncture on him. He can be off Plavix for 48 hours for the procedure to be done. Problem List: 1. BPH (benign prostatic hyperplasia) 2. Acute renal failure 3. Altered mental status 4. Fall 5. Hematuria 6. Diabetes Pain Ratin Pain Location: none Pain Goal: Remain pain free Pain Plan: tylenol Tomorrow's Labs & Rationales: cbc,bep Levy BRAVO,Kendal 10/16/17 1437: Attending MD Review Statement Attending Statement Attending Statement: examined this patient, discuss w/resident/PA/COPY SUPERVISOR, agreed w/resident/PA/COPY SUPERVISOR, discussed with family, reviewed EMR data (avail), discussed with nursing, amended to note Attending Assessment/Plan: Patient's mental status continues to wax and wane. House staff report that earlier this morning he was more alert and participated in physical exam. By the time I rounded on him he was again very lethargic with incomprehensible mumbling when questioned. When was examined area he moved all extremities with no focal deficit. MRI done yesterday showed no acute infarct. He did show evidence of subacute areas of ischemia. He has moderate volume loss consistent with extensive chronic microvascular ischemic changes. It is noted that carotid Doppler shows normal to minimal stenosis bilaterally. He was hypotensive last night however this has improved. Blood pressure has been stable during this admission. Hemoglobin level dropped to 6.3 yesterday from 7.7. He received 1 unit of blood with improvement of his hemoglobin level to 10.1 today. It is likely that the level of 6.3 may have been due to hemodilution yesterday, however his other cell lines are not consistent with this. He was guaiac negative during this admission and currently the only source of bleeding is his hematuria. Family is understandably upset about his fluctuating mental status and lack of clear etiology. He continues to spike a fever suggesting an infectious etiology to his mental status changes. In view of his HIV status a [employer] infection should be considered. He did have a lumbar puncture done last month in the emergency room on presentation due to altered mental status. That study was negative at that time. Problems: 1. Encephalopathy; possibly toxic/metabolic. 2. Abnormal head CT; reason concern for stroke. 3. Fever; unknown etiology. No obvious infectious etiology at present. Noninfectious etiology such as drug fever has been considered as well. 4. AIDS; Patient is on Bactrim for Pneumocystis carinii prophylaxis as well as azithromycin. Last CD4 count was 22 5. Hematuria; Currently receiving continuous bladder irrigation. 6. Acute on chronic anemia. 7. Acute kidney injury. Plan: -Patient is hyponatremic today. Beginning on D5W while n.p.o. -His renal function is improving. Eduardo catheter remains in place draining bloody urine. Continue bilateral irrigation as needed. Follow-up urine culture. -Family is in agreement with proceeding with a lumbar puncture. This was also discussed with the neurology service and the also in agreement. Patient was on Plavix prior to admission this has been held. Lumbar puncture will be attempted by the interventional radiology department after he has been off Plavix for 5 days. -We will follow-up with the ID service regarding empiric antibiotic therapy in view of his persistent fever. However he is currently no obvious infectious etiology. He has no rash or oral lesions no suggest common fungal infections in HIV or Kaposi's sarcoma. Discuss with the ID service regarding obtaining fungal cultures. -Anemia appears to be secondary to hematuria. It is unclear how significantly blood loss he actually had given his current hemoglobin level. We will continue to monitor closely and transfuse for hemoglobin less than 7. -Continue supportive care. Physical therapy evaluation as tolerated.
--- NOTE | 2017-10-16 07:13 | PN- Urology ---
Surgical Brief Attending Note Brief Attending Note: Pt more alert and awake and comfortable: VSS afebrile: ARF and gross hematuria resolving with 3-way CBI prabhakar. Recommend keeping prabhakar to act as tamponade while pt on anti-coagulation, and post TURP. CBI can be discontinued if output clear (continue manual irrigation PRN clot/hematuria). If pt DC home, keep prabhakar and continue PRoscar 5mg/day PO. If remains in-house, may take to OR on thursday for cystoscopy/fulguration.
--- NOTE | 2017-10-16 08:02 | PN- Diabetes ---
Assessment/Plan Assessment: Patient is more alert today. He answers questions. He states he feels somewhat better. At present he is on normal saline. He is also on NovoLog coverage every 4 hours for sugar above 150. Most recent sugars are 133, 159, and 168. The patient has developed acute kidney injury with a creatinine up to 4.4 today. Plan: Suggest continue the IV fluids with D5 half-normal saline at 50 cc an hour. Continue NovoLog every 4 hours. The patient needs to have a swallowing evaluation done. If he is starting a diet we can switch his NovoLog to before meals. Eventually we may need to put him back on a small dose of Levemir. Subjective Subjective: Feels improved Objective Last 24 Hrs of Vital Signs/I&O Vital Signs Date Time Temp Pulse Resp B/P B/P Pulse O2 O2 Flow FiO2 Mean Ox Delivery Rate 10/16 0558 99.3 85 20 106/58 97 Room Air 10/16 0157 100.4 02 0055 100.8 10/16 0026 100.8 10/15 2245 99.3 80 18 88/44 97 Room Air 02 2218 10/15 1804 100.3 02 1705 103.1 02 1700 103.1 02 1420 99.1 112 18 136/82 95 Room Air 10/15 1024 114 146/62 Intake & Output 10/16 1600 10/16 0000 Intake Total 1450 400 Output Total 400 900 Balance 1050 -500 Intake, Blood 350 Product Intake, IV 1100 400 Intake, Oral 0 0 Output, Urine 400 900 Vital Signs Date Time Temp Pulse Resp B/P B/P Pulse O2 O2 Flow FiO2 Mean Ox Delivery Rate 10/16 0558 99.3 85 20 106/58 97 Room Air 10/16 0157 100.4 02/ 0055 100.8 02 0026 100.8 10/15 2245 99.3 80 18 88/44 97 Room Air 10/15 2218 44 10/15 1804 100.3 02 1705 103.1 02 1700 103.1 02 1420 99.1 112 18 136/82 95 Room Air 02 1024 114 146/62 Intake & Output 10/16 1600 10/16 0810/16 0000 Intake Total 1450 400 Output Total 400 900 Balance 1050 -500 Intake, Blood 350 Product Intake, IV 1100 400 Intake, Oral 0 0 Output, Urine 400 900 Current Medications: Current Medications Sig/Ujma Start time Last Medication Dose Route Stop Time Status Admin Acetaminophen 1,000 MG Q6P PRN 10/15 1730 AC 10/16 N/A 1 UNIT IV 0055 Acetaminophen 1,000 MG Q6P PRN 10/10 0500 DC 10/15 IV 1705 Ammonium Lactate 1 DILLAN BID 10/10 1000 AC 10/15 TOP 2109 Aspirin Buffered 81 MG DAILY 10/10 1000 DC 10/14 PO 0856 Atorvastatin Calcium 80 MG 1700 10/14 1700 AC PO Azithromycin 1,200 MG Wilkerson@1000 10/11 1000 AC 10/11 PO 1044 Cholecalciferol 1,000 IU DAILY 10/12 1445 AC 10/14 PO 0857 Dextrose/Sodium 1,000 ML Q20H 10/15 1000 AC 10/15 Chloride IV 0959 Escitalopram Oxalate 10 MG DAILY 10/10 1000 AC 10/14 PO 0856 Famotidine 20 MG DAILY 10/14 1101 AC PO Heparin Sodium 5,000 UNIT Q8 10/10 0600 AC 10/15 (Porcine) SC 1507 Insulin Aspart 0 Q4 10/13 0200 AC 10/16 SC 0620 Metoprolol Succinate 25 MG DAILY 10/10 1000 AC 10/14 PO 0857 Multivitamins 1 TAB DAILY 10/12 1530 AC 10/14 PO 0856 Ondansetron HCl 4 MG Q6P PRN 10/11 1330 AC 10/13 IV 1548 Oxycodone/ 2 TAB Q6P PRN 10/10 0500 AC 10/13 Acetaminophen PO 0641 Pentoxifylline 400 MG DAILY 10/10 1000 AC 10/14 PO 0856 Sodium Chloride 1,000 ML BOLUS ONE 10/15 2200 DC 10/15 IV 10/15 2359 2215 Tamsulosin HCl 0.4 MG DAILY 10/10 1000 AC 10/14 PO 0856 Trimethoprim/ 1 TAB 10/16 1000 AC Sulfamethoxazole PO 10/17 0959 Valacyclovir HCl 1,000 MG DAILY 10/10 1000 AC 10/14 PO 0856 Zolpidem Tartrate 10 MG QPM PRN 10/10 2200 AC PO Vital Signs Date Time Temp Pulse Resp B/P B/P Pulse O2 O2 Flow FiO2 Mean Ox Delivery Rate 10/16 0558 99.3 85 20 106/58 97 Room Air 10/16 0157 100.4 10/16 0055 100.8 10/16 0026 100.8 10/15 2245 99.3 80 18 88/44 97 Room Air 10/15 2218 88/44 10/15 1804 100.3 10/15 1705 103.1 02 1700 103.1 02 1420 99.1 112 18 136/82 95 Room Air 10/15 1024 114 146/62 Intake & Output 10/16 1600 10/16 0800 10/16 0000 Intake Total 1450 400 Output Total 400 900 Balance 1050 -500 Intake, Blood 350 Product Intake, IV 1100 400 Intake, Oral 0 0 Output, Urine 400 900 Findings Pertinent Lab/Lam Results: Laboratory Tests 10/16 10/16 10/15 0635 0600 2232 Chemistry Sodium Pending Potassium Pending Chloride Pending Carbon Dioxide Pending Anion Gap Pending BUN Pending Creatinine Pending BUN/Creatinine Ratio Pending Hematology CBC w Diff Cancelled NO MAN DIFF REQ WBC (4.8 - 10.8 /CUMM) Cancelled 4.7 L RBC (4.70 - 6.10 /CUMM) Cancelled 2.21 L Hgb (14.0 - 18.0 G/DL) Cancelled 6.3 *L Hct (42 - 52 %) Cancelled 19.4 *L MCV (80.0 - 94.0 FL) Cancelled 87.7 MCH (27.0 - 31.0 PG) Cancelled 28.6 MCHC (33.0 - 37.0 G/DL) Cancelled 32.6 L RDW (11.5 - 14.5 %) Cancelled 15.8 H Plt Count (130 - 400 /CUMM) Cancelled 164 MPV (7.4 - 10.4 FL) Cancelled 9.2 Gran % (42.2 - 75.2 %) 84.2 H Lymphocytes % (20.5 - 51.1 %) 5.9 L Monocytes % (1.7 - 9.3 %) 9.6 H Eosinophils % (0 - 5 %) 0 Basophils % (0.0 - 2.0 %) 0.3 Absolute Granulocytes (1.4 - 6.5 /CUMM) 4.0 Absolute Lymphocytes (1.2 - 3.4 /CUMM) 0.3 L Absolute Monocytes (0.10 - 0.60 /CUMM) 0.5 Absolute Eosinophils (0.0 - 0.7 /CUMM) 0 Absolute Basophils (0.0 - 0.2 /CUMM) 0 / 0835 Chemistry Sodium (137 - 145 mmol/L) 142 Potassium (3.5 - 5.1 mmol/L) 4.2 Chloride (98 - 107 mmol/L) 107 Carbon Dioxide (22 - 30 mmol/L) 19 L Anion Gap (5 - 16) 16 BUN (9 - 20 mg/dL) 42 H Creatinine (0.7 - 1.2 mg/dL) 3.2 H Estimated GFR (>60 ml/min) 19 L BUN/Creatinine Ratio (7 - 25 %) 13.1 Hematology CBC w Diff NO MAN DIFF REQ WBC (4.8 - 10.8 /CUMM) 5.2 RBC (4.70 - 6.10 /CUMM) 2.64 L Hgb (14.0 - 18.0 G/DL) 7.7 L Hct (42 - 52 %) 23.0 L MCV (80.0 - 94.0 FL) 87.2 MCH (27.0 - 31.0 PG) 29.3 MCHC (33.0 - 37.0 G/DL) 33.6 RDW (11.5 - 14.5 %) 15.1 H Plt Count (130 - 400 /CUMM) 151 MPV (7.4 - 10.4 FL) 9.4 Gran % (42.2 - 75.2 %) 84.5 H Lymphocytes % (20.5 - 51.1 %) 5.1 L Monocytes % (1.7 - 9.3 %) 10.4 H Eosinophils % (0 - 5 %) 0 Basophils % (0.0 - 2.0 %) 0 Absolute Granulocytes (1.4 - 6.5 /CUMM) 4.4 Absolute Lymphocytes (1.2 - 3.4 /CUMM) 0.3 L Absolute Monocytes (0.10 - 0.60 /CUMM) 0.5 Absolute Eosinophils (0.0 - 0.7 /CUMM) 0 Absolute Basophils (0.0 - 0.2 /CUMM) 0
[2017-10-16 10:00] LABS: ABSOLUTE BASOPHIL COUNT 0 /CUMM (0.0-0.2); ABSOLUTE EOSINOPHIL COUNT 0 /CUMM (0.0-0.7); ABSOLUTE GRANULOCYTE CT 4.6 /CUMM (1.4-6.5); ABSOLUTE LYMPH COUNT 0.6 /CUMM (1.2-3.4); ABSOLUTE MONOCYTE COUNT 0.5 /CUMM (0.10-0.60); BASOPHIL % 0.4 % (0.0-2.0); EOSINOPHIL % 0 % (0-5); GRANULOCYTE % 81.1 % (42.2-75.2); MEAN CORPUSCULAR HGB 29.9 PG (27.0-31.0); MEAN CORPUSCULAR HGB CONC 33.3 G/DL (33.0-37.0); MEAN CORPUSCULAR VOLUME 89.7 FL (80.0-94.0); MEAN PLATELET VOLUME 9.6 FL (7.4-10.4); PLATELET COUNT 159 /CUMM (130-400); RBC DISTRIBUTION WIDTH 16.2 % (11.5-14.5); WHITE BLOOD CELL COUNT 5.7 /CUMM (4.8-10.8)
[2017-10-16 10:16] LABS: HEMATOCRIT 30.3 % (42-52); RED BLOOD CELL CT 3.38 /CUMM (4.70-6.10)
[2017-10-16 14:44] VITALS: BP 138/68
--- NOTE | 2017-10-16 16:16 | PN- Infect Dx ---
Subjective Subjective: MAXIMUM TEMPERATURE 103.2. He reports headache and body aches but it is not clear if his history is reliable. Objective Last 24 Hrs of Vital Signs/I&O Vital Signs Date Time Temp Pulse Resp B/P B/P Pulse O2 O2 Flow FiO2 Mean Ox Delivery Rate 10/16 1444 97.7 87 20 138/68 96 Room Air Room Air 10/16 1230 99.0 10/16 1100 99.0 10/16 1002 103.2 10/16 0951 102.3 10/16 0558 99.3 85 20 106/58 97 Room Air 10/16 0157 100.4 10/16 0055 100.8 10/16 0026 100.8 10/15 2245 99.3 80 18 88/44 97 Room Air 10/15 2218 88/44 10/15 1804 100.3 10/15 1705 103.1 10/15 1700 103.1 Intake & Output 10/16 1600 10/16 0800 10/16 0000 Intake Total 1450 400 Output Total 400 900 Balance 1050 -500 Intake, Blood 350 Product Intake, IV 1100 400 Intake, Oral 0 0 Output, Urine 400 900 Physical Exam Other Physical Findings: He is lethargic but easily arousable and in no acute distress Neck is supple with no adenopathy Lungs crackles at the left base Heart regular rhythm with no murmur Abdomen is soft, with no obvious tenderness, positive bowel sounds Extremities no cyanosis, clubbing or edema Eduardo catheter remains in place, with blood-tinged urine Results Last 24 Hours of Lab Results: Laboratory Tests 10/16 10/16 10/16 0840 0635 0600 Chemistry Sodium (137 - 145 mmol/L) 147 H Potassium (3.5 - 5.1 mmol/L) 4.2 Chloride (98 - 107 mmol/L) 116 H Carbon Dioxide (22 - 30 mmol/L) 16 L Anion Gap (5 - 16) 15 BUN (9 - 20 mg/dL) 40 H Creatinine (0.7 - 1.2 mg/dL) 1.9 H Estimated GFR (>60 ml/min) 34 L BUN/Creatinine Ratio (7 - 25 %) 21.1 Cortisol AM Sample (4.46 - 22.7 ug/dL) 36.9 H Hematology CBC w Diff NO MAN DIFF REQ Cancelled WBC (4.8 - 10.8 /CUMM) 5.7 Cancelled RBC (4.70 - 6.10 /CUMM) 3.38 L Cancelled Hgb (14.0 - 18.0 G/DL) 10.1 L Cancelled Hct (42 - 52 %) 30.3 L Cancelled MCV (80.0 - 94.0 FL) 89.7 Cancelled MCH (27.0 - 31.0 PG) 29.9 Cancelled MCHC (33.0 - 37.0 G/DL) 33.3 Cancelled RDW (11.5 - 14.5 %) 16.2 H Cancelled Plt Count (130 - 400 /CUMM) 159 Cancelled MPV (7.4 - 10.4 FL) 9.6 Cancelled Gran % (42.2 - 75.2 %) 81.1 H Lymphocytes % (20.5 - 51.1 %) 9.9 L Monocytes % (1.7 - 9.3 %) 8.6 Eosinophils % (0 - 5 %) 0 Basophils % (0.0 - 2.0 %) 0.4 Absolute Granulocytes (1.4 - 6.5 /CUMM) 4.6 Absolute Lymphocytes (1.2 - 3.4 /CUMM) 0.6 L Absolute Monocytes (0.10 - 0.60 /CUMM) 0.5 Absolute Eosinophils (0.0 - 0.7 /CUMM) 0 Absolute Basophils (0.0 - 0.2 /CUMM) 0 10/15 2232 Hematology CBC w Diff NO MAN DIFF REQ WBC (4.8 - 10.8 /CUMM) 4.7 L RBC (4.70 - 6.10 /CUMM) 2.21 L Hgb (14.0 - 18.0 G/DL) 6.3 *L Hct (42 - 52 %) 19.4 *L MCV (80.0 - 94.0 FL) 87.7 MCH (27.0 - 31.0 PG) 28.6 MCHC (33.0 - 37.0 G/DL) 32.6 L RDW (11.5 - 14.5 %) 15.8 H Plt Count (130 - 400 /CUMM) 164 MPV (7.4 - 10.4 FL) 9.2 Gran % (42.2 - 75.2 %) 84.2 H Lymphocytes % (20.5 - 51.1 %) 5.9 L Monocytes % (1.7 - 9.3 %) 9.6 H Eosinophils % (0 - 5 %) 0 Basophils % (0.0 - 2.0 %) 0.3 Absolute Granulocytes (1.4 - 6.5 /CUMM) 4.0 Absolute Lymphocytes (1.2 - 3.4 /CUMM) 0.3 L Absolute Monocytes (0.10 - 0.60 /CUMM) 0.5 Absolute Eosinophils (0.0 - 0.7 /CUMM) 0 Absolute Basophils (0.0 - 0.2 /CUMM) 0 Last 24 Hours of Lam Results: Blood cultures October 14 negative Urine culture October 16 pending Recent Imaging Studies: MRI of the head October 15 reveals no acute infarcts but does reveal a small focus in the right centrum semiovale consistent with subacute ischemia and relatively extensive chronic microvascular ischemic changes Assessment/Plan Impression: Recurrent fevers of unclear etiology with recent blood cultures remaining negative and with his recent CT scan of the abdomen and pelvis negative for any obvious focus of infection. He is less responsive than usual, with the MRI of the head suggestive of ischemia, but no infarct, and a [employer] infection, for example secondary to an opportunistic infection, including cryptococcal meningitis, could be considered. Of note he did undergo an MRI of the head and LP on a previous hospitalization 6 weeks ago which were negative. His renal function is improving status post insertion of the Eduardo catheter, with persistent hematuria (status post recent laser TURP) which likely explains his severe anemia, for which he was transfused yesterday. His fever could be noninfectious in etiology for example drug fever, but there are no obvious medications to implicate. His previous CT scans have revealed retroperitoneal, left inguinal and iliac lymphadenopathy, raising concern for lymphoma or metastatic prostate cancer, and he is tentatively scheduled for a cystoscopy/ fulguration next week, at which time a prostate biopsy can be obtained. Suggestion: 1. Rapid flu swab 2. Repeat chest x-ray 3. Agree with pursuing a lumbar puncture 4. Follow-up the recent urine culture 5. Await possible cystoscopy and prostate biopsy next week per Urology 6. Reevaluate/ investigate need for Valacyclovir prophylaxis 7. Continue Bactrim and Azithromycin prophylaxis
--- NOTE | 2017-10-16 22:46 | RADIOLOGY REPORT ---
EXAMINATION: XR PORTABLE CHEST CLINICAL INFORMATION: HIV fever of unknown origin COMPARISON: Prior chest 10/10/2017 TECHNIQUE: Portable frontal view of the chest was obtained. FINDINGS: No significant abnormality is noted involving the heart, lungs, mediastinum, bony thorax or soft tissues. IMPRESSION: Unremarkable examination.
[2017-10-16 23:50] VITALS: BP 102/60
[2017-10-17 06:00] VITALS: BP 158/70
--- NOTE | 2017-10-17 08:08 | PN- Housestaff ---
Ana Luisa Cummings MD 10/17/17 0807: Subjective Follow-up For: HIV, fever of unknown origin Complaints: no complaints Subjective: Patient was seen and examined at bedside. He was lying comfortably in his bed. He is more alert and oriented 2. He is able to follow commands. Patient denied chest pain, chest pressure, nausea, vomiting, abdominal pain. Review of Systems Constitutional: Reports: no symptoms. Cardiovascular: Reports: no symptoms. Respiratory: Reports: no symptoms. Gastrointestinal: Reports: no symptoms. Genitourinary: Reports: no symptoms. Musculoskeletal: Reports: no symptoms. Objective Last 24 Hrs of Vital Signs/I&O Vital Signs Date Time Temp Pulse Resp B/P B/P Pulse O2 O2 Flow FiO2 Mean Ox Delivery Rate 10/17 1123 98 150/70 10/17 1122 98 150/70 10/17 0810 100.8 10/17 0711 103.4 10/17 0711 103.4 10/17 0600 101 20 158/70 97 10/17 0338 101.4 10/16 2350 102.0 104 24 102/60 94 Room Air 10/16 2230 102.0 / 2100 103.5 10/16 2100 103.5 10/16 2030 104.7 10/16 2030 104.7 10/16 2000 104.3 10/16 1838 103.7 / 1837 103.7 / 1726 100.3 02/ 1717 100.4 / 1622 98.3 10/16 1600 Room Air Intake & Output 10/17 1600 10/17 0800 10/17 0000 Intake Total 700 825 625 Output Total 400 1000 0 Balance 300 -175 625 Intake, IV 600 825 625 Intake, Oral 100 Number 1 Bowel Movements Output, Urine 400 1000 0 Physical Exam General Appearance: Alert, Oriented X3, Cooperative, No Acute Distress HEENT: PERRLA Cardiovascular: Normal S1, Normal S2, No Murmurs Lungs: Clear to Auscultation Abdomen: Soft, No Tenderness, No Hepatospenomegaly Neurological: Strength at 5/5 X4 Ext, Normal Tone, Sensation Intact Extremities: No Edema Current Medications: Current Medications Sig/Juma Start time Last Medication Dose Route Stop Time Status Admin Acetaminophen 650 MG ONCE ONE 10/16 2029 DC 10/16 VT 10/16 Acetaminophen 1,000 MG Q6P PRN 10/15 1730 AC 10/17 N/A 1 UNIT IV 0711 Ammonium Lactate 1 DILLAN BID 10/10 1000 AC 10/17 TOP 1123 Atorvastatin Calcium 80 MG 1700 10/14 1700 AC PO Azithromycin 1,200 MG Wilkerson@1000 10/11 1000 AC 10/11 PO 1044 Cholecalciferol 1,000 IU DAILY 10/12 1445 AC 10/14 PO 0857 Dextrose/Sodium 1,000 ML Q20H 10/15 1000 AC 10/17 Chloride IV 0507 Escitalopram Oxalate 10 MG DAILY 10/10 1000 AC 10/14 PO 0856 Famotidine 20 MG DAILY 10/14 1101 AC PO Heparin Sodium 5,000 UNIT Q8 10/10 0600 AC 10/17 (Porcine) SC 1422 Ibuprofen 600 MG ONCE ONE 10/16 2030 CAN PO 10/16 2030 Ibuprofen 400 MG ONCE ONE 10/16 2030 CAN PO 10/16 2030 Insulin Aspart 0 Q4 10/13 0200 AC 10/17 SC 1422 Metoprolol Succinate 25 MG DAILY 10/10 1000 AC 10/14 PO 0857 Multivitamins 1 TAB DAILY 10/12 1530 AC 10/14 PO 0856 Ondansetron HCl 4 MG Q6P PRN 10/11 1330 AC 10/13 IV 1548 Pentoxifylline 400 MG DAILY 10/10 1000 AC 10/16 PO 1501 Tamsulosin HCl 0.4 MG DAILY 10/10 1000 AC 10/14 PO 0856 Trimethoprim/ 1 TAB 10/16 1000 DC Sulfamethoxazole PO 10/17 0959 Valacyclovir HCl 1,000 MG DAILY 10/10 1000 AC 10/14 PO 0856 Last 24 Hrs of Lab/Lam Results Last 24 Hrs of Labs/Mics: Laboratory Tests 10/17/17 0644: Anion Gap 17 H, Estimated GFR 53 L, BUN/Creatinine Ratio 26.2 H, CBC w Diff NO MAN DIFF REQ, RBC 3.63 L, MCV 89.9, MCH 28.8, MCHC 32.0 L, RDW 16.7 H, MPV 9.9, Gran % 71.1, Lymphocytes % 19.6 L, Monocytes % 9.2, Eosinophils % 0, Basophils % 0.1, Absolute Granulocytes 3.9, Absolute Lymphocytes 1.1 L, Absolute Monocytes 0.5, Absolute Eosinophils 0, Absolute Basophils 0 10/16/17 1730: Virus Culture Pending Microbiology 10/16 2114 BLOOD: Blood Culture - RES 10/16 2044 BLOOD: Blood Culture - RES 10/16 1730 NASOPHARYN: Influenza Virus A & B Rapid Smear - COMP Assessment/Plan Assessment: 82-year-old male with past medical history significant for coronary artery disease status post GA, stent placement on dual antiplatelet regimen, HIV with CD4 count 22 on prophylactic antibiotics Bactrim, azithromycin, valacyclovir, Prezcobix, dolutegravir, depression, hypertension, type 2 diabetes mellitus, GERD, BPH, recently discharged for fever of unknown origin, retroperitoneal lymphadenopathy questionable lymphoma presenting to the emergency room for left hip pain status post fall x2. Problem List: #Altered mental status Patient was transferred to [facility] for evaluation of possible stroke/sudden onset of altered mental status. CT Head showed possible evolving infarct however MRI was negative. Neurology consulted did not warrant TPA treatment as no neurological deficit and unkonw time of onset. Patient is more awake, alert and oriented 3. He does have periods of confusion on and off. - Fall precaution. - Patient is on continuous bladder irrigation aspiration urology Dr. Victoria. Urology follow-up appreciated. - Follow ID recommendations. #Acute renal failure, likely from contrast use Patient has acute renal failure secondary to contrast-induced nephropathy. We will continue IV fluids and monitor his renal parameters. - Nephrology consult if worsening. -Avoid nephrotoxins. -Avoid hydrochlorothiazide #fall Hip x-ray, pelvic x-ray, lumbar spine x-ray, head/ cervical spine CT negative for acute fractures VitD /B12 levels low. On vitamin D and calcium supplementation. -Continue vit D and multivtiamin supplmentation -PT recommends home PT -cont pain control #FUO Tmax 24hrs: 104.7, Patient was last admitted for FUO. Ucx and blood cx , blood cultures, sputum culture thus far negative Rapid flu negative. Plan for IR guided lumbar puncture on Thursday. Patient will be nothing by mouth from Thursday night. - CT Ab/pelvis w/ contrast did not show active infectious source including collection. -dc ceftriaxone per ID and continue azithromycin and Bactrim for prophylaxis. -continue HIV medications - Tylenol 650mg once for his spiked fever this morning. #Asymptomatic bacteriuria UA + for moderate LE and WBC >75 Urine cx negative. Patient had a renal ultrasound done following hematuria which showed echogenic material in his bladder lumen. Urology was consulted who suggested continuous bladder irrigation. In view of his acute stroke cystoscopy was deferred for now. We sent a urine culture today. #HIV Last CD4 count 22 -continue prescobix and dolutragravir daily. -continue Bactrim, azithromycin, valacyclovir #DM His blood sugars 150-138. We will continue NovoLog coverage every 4 hours. #Coronary artery disease status post stent placement -continue aspirin, statin, Plavix #Peripheral vascular disease -continue pentoxifylline 400 mg daily #Depression -continue Lexapro 10 mg daily #Hypertension -continue metoprolol. -hold hydrochlorothiazide #GERD -continue omeprazole #BPH s/p TURP -continue tamsulosin #Insomnia -continue zolpidem as needed for sleep #FULL CODE #DVT prophylaxis subcutaneous heparin Code-full code Problem List: 1. Stroke 2. Diabetes 3. Fever of unknown origin Pain Ratin Pain Location: NONE Pain Goal: Remain pain free Pain Plan: TYLENOL Tomorrow's Labs & Rationales: CBC,BEP Levy BRAVO,Kendal 10/17/17 1512: Attending MD Review Statement Attending Statement Attending MD Statement: examined this patient, discuss w/resident/PA/MEDIA TECHNICIAN, agreed w/resident/PA/MEDIA TECHNICIAN, discussed with family, reviewed EMR data (avail), discussed with nursing, amended to note Attending Assessment/Plan: Patient seen and examined. When I evaluated him today found a more alert and participating in physical examination. He followed commands appropriately. I did discuss this with his daughter who states that his mental status waxes and wanes. She reports that yesterday evening he was very alert and joked around with her and his granddaughter. On examination he has no lateralizing signs. He continues to spike a fever but remains hemodynamically stable. Laboratory data today show worsening hypernatremia. Recommendations: -Continue to monitor patient off antibiotic therapy other than prophylactic antibiotic he is receiving on account of his AIDS. -He is scheduled to undergo IR guided lumbar puncture on Thursday. -His hematuria is clearing up. Continue CBI. He is expected to undergo cystoscopy and probably biopsy later on in the week. -Calculates his free water deficit and correct his hyponatremia with D5W.
[2017-10-17 08:44] LABS: ABSOLUTE BASOPHIL COUNT 0 /CUMM (0.0-0.2); ABSOLUTE EOSINOPHIL COUNT 0 /CUMM (0.0-0.7); ABSOLUTE GRANULOCYTE CT 3.9 /CUMM (1.4-6.5); ABSOLUTE LYMPH COUNT 1.1 /CUMM (1.2-3.4); ABSOLUTE MONOCYTE COUNT 0.5 /CUMM (0.10-0.60); BASOPHIL % 0.1 % (0.0-2.0); EOSINOPHIL % 0 % (0-5); GRANULOCYTE % 71.1 % (42.2-75.2); HEMATOCRIT 32.7 % (42-52); MEAN CORPUSCULAR HGB 28.8 PG (27.0-31.0); MEAN CORPUSCULAR VOLUME 89.9 FL (80.0-94.0); MEAN PLATELET VOLUME 9.9 FL (7.4-10.4); PLATELET COUNT 162 /CUMM (130-400); RBC DISTRIBUTION WIDTH 16.7 % (11.5-14.5); RED BLOOD CELL CT 3.63 /CUMM (4.70-6.10); WHITE BLOOD CELL COUNT 5.4 /CUMM (4.8-10.8)
--- NOTE | 2017-10-17 10:45 | PN- Neurology ---
Subjective Subjective: Persistent confusion and fever Objective Vital Signs and I&Os Vital Signs Date Time Temp Pulse Resp B/P B/P Pulse O2 O2 Flow FiO2 Mean Ox Delivery Rate 10/17 0810 100.8 / 0711 103.4 / 0711 103.4 / 0600 101 20 158/70 97 10/17 0338 101.4 10/16 2350 102.0 104 24 102/60 94 Room Air 10/16 2230 102.0 10/16 2100 103.5 10/16 2100 103.5 10/16 2030 104.7 10/16 2030 104.7 / 2000 104.3 10/16 1838 103.7 10/16 1837 103.7 10/16 1726 100.3 10/16 1717 100.4 10/16 1622 98.3 10/16 1600 Room Air 10/16 1444 97.7 87 20 138/68 96 Room Air Room Air 10/16 1230 99.0 10/16 1100 99.0 Intake & Output 10/17 1600 10/17 0800 10/17 0000 10/16 1600 10/16 0800 10/16 0000 Intake Total 825 347 958 5564 400 Output Total 1000 0 600 400 900 Balance -175 075 451 7291 -500 Intake, Blood 350 Product Intake, IV 825 109 667 3718 400 Intake, Oral 360 0 0 Number 1 Bowel Movements Output, Urine 1000 0 600 400 900 Patient currently awake, alert, calm and cooperative. Neck was supple without meningismus. He was disoriented to place and time. He could not name the current president. Face was symmetric. There was no drift of the upper extremities. There was no gross lateralizing weakness. Plantar responses were flexor. Current Medications: Current Medications Sig/Juma Start time Last Medication Dose Route Stop Time Status Admin Acetaminophen 650 MG ONCE ONE 10/16 2029 DC 10/16 NC 10/16 Acetaminophen 1,000 MG Q6P PRN 10/15 1730 AC 10/17 N/A 1 UNIT IV 0711 Ammonium Lactate 1 DILLAN BID 10/10 1000 AC 10/16 TOP 2247 Atorvastatin Calcium 80 MG 1700 10/14 1700 AC PO Azithromycin 1,200 MG Wilkerson@1000 10/11 1000 AC 10/11 PO 1044 Cholecalciferol 1,000 IU DAILY 10/12 1445 AC 10/14 PO 0857 Dextrose/Sodium 1,000 ML Q20H 10/15 1000 AC 10/17 Chloride IV 0507 Escitalopram Oxalate 10 MG DAILY 10/10 1000 AC 10/14 PO 0856 Famotidine 20 MG DAILY 10/14 1101 AC PO Heparin Sodium 5,000 UNIT Q8 10/10 0600 AC 10/17 (Porcine) SC 0550 Ibuprofen 600 MG ONCE ONE 10/16 2030 CAN PO 10/16 2030 Ibuprofen 400 MG ONCE ONE 10/16 2030 CAN PO 10/16 203 Insulin Aspart 0 Q4 10/13 0200 AC 10/17 SC 0550 Metoprolol Succinate 25 MG DAILY 10/10 1000 AC 10/14 PO 0857 Multivitamins 1 TAB DAILY 10/12 1530 AC 10/14 PO 0856 Ondansetron HCl 4 MG Q6P PRN 10/11 1330 AC 10/13 IV 1548 Pentoxifylline 400 MG DAILY 10/10 1000 AC 10/16 PO 1501 Tamsulosin HCl 0.4 MG DAILY 10/10 1000 AC 10/14 PO 0856 Trimethoprim/ 1 TAB THURSDAY WED MONDAY 10/16 1000 DC Sulfamethoxazole PO 10/17 0959 Valacyclovir HCl 1,000 MG DAILY 10/10 1000 AC 10/14 PO 0856 Assessment/Plan Assessment: Persistent encephalopathy of uncertain etiology. Examination remains nonfocal. Fever HIV Plan: Await lumbar puncture. CSF should be obtained for cell count, protein, glucose, Gram stain, cryptococcal antigen, fungal cultures and cytology.
[2017-10-17 15:13] VITALS: BP 130/68
[2017-10-17 21:45] VITALS: BP 132/70
--- NOTE | 2017-10-17 21:58 | Event Note ---
Event Note Event Note: S: paged for AMS and tachycardia B: Pt admitted for FUO, had 104.7 fever yestreday. Fever 101.7 A/R: VITALS: HR 180, BP 132/70, T 101.7, BSG 207, Patient seen by medical team. Altered comapred to baselined. Not interacting with staff. Pt appears to have contracted upper extremities. Also found to have fecal incontience. EKG reading revealed HR of 180+ /SVT however the EKG appears to be sinus tachycardia. CT head was negative for any acute cause. Nursing staff concerned regarding tachycarida and transferred pt to tele. 1x lopressor 5mg was given in tele. then 10mg dilt IV given. HR improved to 98. Lactic acid elevated at 2.2 Unclear cause at this time. Possible seizure vs encephalitis. Patient admitted for FUO. Planned lumbar puncture in AM. Will continue q4 neuro checks and seizure precautions. Patient's daughter was informed pt being transfered to tele. CBC/BEP pending
--- NOTE | 2017-10-17 22:40 | Event Note ---
Event Note Event Note: S: Second RR Called. Pt remains tachycardic, HR in the 180's B: Pt admitted for FUO, had 104.7 fever yestreday. Fever 101.7 A/R: 10.39 PM: Administered the patient Lopressor 5 mg. HR remains in the 160-170. 1054: Administered Cardizem, attempted to give 10 mg, but patient HR improved while the medication was administered. 07.20. Spoke to Dr Haines, he will see the patient in the AM. Family Informed. Will continue to monitor. 07.20. Spoke to Dr Haines. Family Informed. Will continue to monitor.
--- NOTE | 2017-10-17 22:48 | CT SCAN REPORT ---
EXAMINATION: CT HEAD WITHOUT CONTRAST CLINICAL INFORMATION: Altered mental status. Lethargic. COMPARISON: Head CT 10/14/2017. MRI 10/15/2017. TECHNIQUE: Contiguous axial imaging was performed from the skull base to vertex without intravenous administration of contrast. DLP: 621 mGy-cm FINDINGS: There is no evidence of acute intracranial hemorrhage or territorial infarction. No abnormal mass effect or midline shift is seen. Hodb-pr-oiuft matter differentiation is well preserved. No extra-axial fluid collections are identified. The ventricles and sulcal spaces are proportionate without hydrocephalus. There is periventricular white matter hypoattenuation, which likely reflects sequela of ischemic microangiopathy. The osseous structures and soft tissues are unremarkable. The mastoid air cells and visualized portions of the paranasal sinuses are well aerated. IMPRESSION: No acute intracranial pathology. Extensive white matter disease. The small subacute infarct in the right centrum semiovale demonstrated on MRI is not conspicuous on CT scan. No significant interval change compared to recent head CT.
[2017-10-17 23:11] LABS: ABSOLUTE BASOPHIL COUNT 0 /CUMM (0.0-0.2); ABSOLUTE EOSINOPHIL COUNT 0 /CUMM (0.0-0.7); ABSOLUTE GRANULOCYTE CT 2.5 /CUMM (1.4-6.5); ABSOLUTE LYMPH COUNT 0.4 /CUMM (1.2-3.4); ABSOLUTE MONOCYTE COUNT 0.3 /CUMM (0.10-0.60); BASOPHIL % 0 % (0.0-2.0); EOSINOPHIL % 0 % (0-5); HEMATOCRIT 30.1 % (42-52); MEAN CORPUSCULAR HGB 29.1 PG (27.0-31.0); MEAN CORPUSCULAR HGB CONC 33.4 G/DL (33.0-37.0); MEAN CORPUSCULAR VOLUME 87.1 FL (80.0-94.0); MEAN PLATELET VOLUME 9.7 FL (7.4-10.4); PLATELET COUNT 133 /CUMM (130-400); RBC DISTRIBUTION WIDTH 16.2 % (11.5-14.5); RED BLOOD CELL CT 3.46 /CUMM (4.70-6.10)
[2017-10-17 23:35] VITALS: BP 102/50
[2017-10-17 23:47] LABS: WHITE BLOOD CELL COUNT 3.2 /CUMM (4.8-10.8)
[2017-10-18 04:44] LABS: ABSOLUTE BASOPHIL COUNT 0 /CUMM (0.0-0.2); ABSOLUTE EOSINOPHIL COUNT 0 /CUMM (0.0-0.7); ABSOLUTE GRANULOCYTE CT 3.4 /CUMM (1.4-6.5); ABSOLUTE LYMPH COUNT 0.3 /CUMM (1.2-3.4); ABSOLUTE MONOCYTE COUNT 0.3 /CUMM (0.10-0.60); BASOPHIL % 0 % (0.0-2.0); EOSINOPHIL % 0.1 % (0-5); GRANULOCYTE % 83.5 % (42.2-75.2); HEMATOCRIT 29.2 % (42-52); MEAN CORPUSCULAR HGB 29.3 PG (27.0-31.0); MEAN CORPUSCULAR HGB CONC 32.9 G/DL (33.0-37.0); MEAN CORPUSCULAR VOLUME 89.3 FL (80.0-94.0); MEAN PLATELET VOLUME 9.9 FL (7.4-10.4); PLATELET COUNT 137 /CUMM (130-400); RBC DISTRIBUTION WIDTH 16.6 % (11.5-14.5); RED BLOOD CELL CT 3.27 /CUMM (4.70-6.10); WHITE BLOOD CELL COUNT 4.1 /CUMM (4.8-10.8)
[2017-10-18 06:14] VITALS: BP 118/60
--- NOTE | 2017-10-18 08:49 | PN- Infect Dx ---
Subjective Subjective: MAXIMUM TEMPERATURE 103.9, with a temperature to 104.7 on October 16. He has been reportedly less interactive, with an episode of fecal incontinence noted last evening. He does not offer any complaints at this time. Objective Last 24 Hrs of Vital Signs/I&O Vital Signs Date Time Temp Pulse Resp B/P B/P Pulse O2 O2 Flow FiO2 Mean Ox Delivery Rate 10/18 0530 99.3 10/18 613 97.6 87 20 118/60 100 10/18 0000 Nasal 2.0L Cannula 10/17 2335 103.9 98 20 102/50 95 10/17 2310 150 10/17 2245 180 122/66 10/17 2159 101.7 10/17 2145 101.7 136 18 132/70 95 10/17 1513 99.7 122 20 130/68 97 Room Air 10/17 1123 98 150/70 10/17 1122 98 150/70 Intake & Output 10/18 1600 10/18 0800 10/18 0000 Intake Total 1200 300 Output Total 2400 1500 Balance -1200 -1200 Intake, IV 1200 300 Output, Urine 2400 1500 Physical Exam Other Physical Findings: He appears lethargic but arousable and able to answer questions Neck is supple with no adenopathy Lungs are clear Heart regular rhythm with no murmur Abdomen is soft, nontender with positive bowel sounds Back no CVA tenderness Extremities no cyanosis, clubbing or edema Edaurdo catheter remains in place, with clear urine Results Last 24 Hours of Lab Results: Laboratory Tests 10/18 10/18 10/17 0615 0425 2250 Chemistry Sodium (137 - 145 mmol/L) 145 Potassium (3.5 - 5.1 mmol/L) 4.0 Chloride (98 - 107 mmol/L) 113 H Carbon Dioxide (22 - 30 mmol/L) 19 L Anion Gap (5 - 16) 13 BUN (9 - 20 mg/dL) 27 H Creatinine (0.7 - 1.2 mg/dL) 1.0 Estimated GFR (>60 ml/min) > 60 BUN/Creatinine Ratio (7 - 25 %) 27.0 H Lactic Acid (0.7 - 2.1 mmol/L) 2.4 H 2.2 H Troponin I (<0.11 ng/ml) 0.10 Hematology CBC w Diff NO MAN DIFF REQ WBC (4.8 - 10.8 /CUMM) 4.1 L RBC (4.70 - 6.10 /CUMM) 3.27 L Hgb (14.0 - 18.0 G/DL) 9.6 L Hct (42 - 52 %) 29.2 L MCV (80.0 - 94.0 FL) 89.3 MCH (27.0 - 31.0 PG) 29.3 MCHC (33.0 - 37.0 G/DL) 32.9 L RDW (11.5 - 14.5 %) 16.6 H Plt Count (130 - 400 /CUMM) 137 MPV (7.4 - 10.4 FL) 9.9 Gran % (42.2 - 75.2 %) 83.5 H Lymphocytes % (20.5 - 51.1 %) 8.4 L Monocytes % (1.7 - 9.3 %) 8.0 Eosinophils % (0 - 5 %) 0.1 Basophils % (0.0 - 2.0 %) 0 Absolute Granulocytes (1.4 - 6.5 /CUMM) 3.4 Absolute Lymphocytes (1.2 - 3.4 /CUMM) 0.3 L Absolute Monocytes (0.10 - 0.60 /CUMM) 0.3 Absolute Eosinophils (0.0 - 0.7 /CUMM) 0 Absolute Basophils (0.0 - 0.2 /CUMM) 0 10/17 10/17 2250 2155 Chemistry Sodium (137 - 145 mmol/L) 146 H Cancelled Potassium (3.5 - 5.1 mmol/L) 3.9 Cancelled Chloride (98 - 107 mmol/L) 112 H Cancelled Carbon Dioxide (22 - 30 mmol/L) 19 L Cancelled Anion Gap (5 - 16) 15 Cancelled BUN (9 - 20 mg/dL) 26 H Cancelled Creatinine (0.7 - 1.2 mg/dL) 1.1 Cancelled Estimated GFR (>60 ml/min) > 60 BUN/Creatinine Ratio (7 - 25 %) 23.6 Cancelled Troponin I (<0.11 ng/ml) 0.12 *H Hematology CBC w Diff NO MAN DIFF REQ WBC (4.8 - 10.8 /CUMM) 3.2 L RBC (4.70 - 6.10 /CUMM) 3.46 L Hgb (14.0 - 18.0 G/DL) 10.1 L Hct (42 - 52 %) 30.1 L MCV (80.0 - 94.0 FL) 87.1 MCH (27.0 - 31.0 PG) 29.1 MCHC (33.0 - 37.0 G/DL) 33.4 RDW (11.5 - 14.5 %) 16.2 H Plt Count (130 - 400 /CUMM) 133 MPV (7.4 - 10.4 FL) 9.7 Gran % (42.2 - 75.2 %) 77.0 H Lymphocytes % (20.5 - 51.1 %) 13.0 L Monocytes % (1.7 - 9.3 %) 10.0 H Eosinophils % (0 - 5 %) 0 Basophils % (0.0 - 2.0 %) 0 Absolute Granulocytes (1.4 - 6.5 /CUMM) 2.5 Absolute Lymphocytes (1.2 - 3.4 /CUMM) 0.4 L Absolute Monocytes (0.10 - 0.60 /CUMM) 0.3 Absolute Eosinophils (0.0 - 0.7 /CUMM) 0 Absolute Basophils (0.0 - 0.2 /CUMM) 0 Last 24 Hours of Lam Results: Blood cultures October 16 negative Rapid flu swab October 16 negative Urine culture October 16 negative Recent Imaging Studies: CT of the head October 17 reveals no acute intracranial process with extensive white matter disease, 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 Of note he did undergo an MRI of the head and LP on a previous hospitalization 6 weeks ago which were negative, though the CSF did reveal 2 oligoclonal bands. His renal function has normalized status post insertion of the Eduardo catheter. His fever could be noninfectious in etiology, for example drug fever or lymphoma, with retroperitoneal, left inguinal and iliac lymphadenopathy noted on his CT scans. Metastatic prostate cancer is also a concern, though unlikely to explain his fevers, and he is tentatively scheduled for a cystoscopy/fulguration on October 20, at which time a prostate biopsy can be obtained. Bactrim prophylaxis has apparently again been discontinued, though he remains on Azithromycin and Valacyclovir. Suggestion: 1. Await lumbar puncture (send for usual studies as well as cryptococcal antigen, RPR, AFB and fungal cultures, and PCR for HSV and JORGE virus) 2. Serum for RPR, cryptococcal antigen and toxoplasma titers 3. Neurology follow-up regarding the positive oligoclonal bands on his previous CSF 4. Discontinue all nonessential medications 5. Await possible cystoscopy and prostate biopsy on October 20 per Urology 6. Reevaluate prophylactic medications as previously noted and discussed
--- NOTE | 2017-10-18 10:00 | PN- Housestaff ---
Ish BRAVO,Lupis 10/18/17 1000: Subjective Follow-up For: HIV, fever of unknown origin Subjective: Patient was seen and examined today. Patient remains lethargic and drowsy, occasionally opens his eyes with verbal and tactile stimuli. Unable to obtain ROS. Patient's daughter and son-in-law at bedside. States patient today has been slighly more responsive throughout the day for very brief moments. Patient overnight was transferred from [facility] due Telemetry due unresponsiveness. Review of Systems Constitutional: Reports: see HPI. Objective Last 24 Hrs of Vital Signs/I&O Vital Signs Date Time Temp Pulse Resp B/P B/P Pulse O2 O2 Flow FiO2 Mean Ox Delivery Rate 10/18 1911 102.1 10/18 1831 Nasal 2.0L Cannula 10/18 1653 103.9 10/18 1601 98.0 120 20 137/70 97 / 1114 98 120/60 10/18 1111 98 120/70 10/18 0800 96 Nasal 2.0L Cannula 10/18 0630 99.3 10/18 0614 97.6 87 20 118/60 100 02/ 0000 Nasal 2.0L Cannula 10/17 2335 103.9 98 20 102/50 95 02/03 2310 150 02/ 2245 180 122/66 10/17 2159 101.7 / 2145 101.7 136 18 132/70 95 Intake & Output 10/18 1600 /04 0800 02/04 0000 Intake Total 1000 1200 300 Output Total 600 2400 1500 Balance 400 -1200 -1200 Intake, IV 1000 1200 300 Intake, Oral 0 Number 1 Bowel Movements Output, Urine 600 2400 1500 Physical Exam General Appearance: lethargic, briefly arousable with painful stimuli HEENT: Atraumatic, Mucous Membr. moist/pink Cardiovascular: Normal S1, Normal S2, tachycardic Lungs: Clear to Auscultation, Normal Air Movement Abdomen: Normal Bowel Sounds, Soft, No Tenderness Neurological: unable to assess due to patient's mental state Extremities: No Clubbing, No Cyanosis, No Edema, Normal Pulses, No Tenderness/ Swelling Vascular: Normal Pulses, Pulses Symmetrical Current Medications: Current Medications Sig/Juma Start time Last Medication Dose Route Stop Time Status Admin Acetaminophen 1,000 MG .STK-MED ONE 10/17 2155 DC IV 10/17 2156 Acetaminophen 1,000 MG Q6P PRN 10/15 1730 AC 10/18 N/A 1 UNIT IV 1653 Ammonium Lactate 1 DILLAN BID 10/10 1000 AC 10/18 TOP 1111 Atorvastatin Calcium 80 MG 1700 10/14 1700 AC 10/17 PO 1703 Azithromycin 1,200 MG Wilkerson@1000 10/11 1000 DC 10/11 PO 1044 Cholecalciferol 1,000 IU DAILY 10/12 1445 AC 10/14 PO 0857 Dextrose/Sodium 1,000 ML Q20H 10/15 1000 AC 10/18 Chloride IV 0630 Diltiazem HCl 10 MG ONCE ONE 10/17 2300 DC 10/17 IV PUSH 10/17 2301 2310 Escitalopram Oxalate 10 MG DAILY 10/10 1000 AC 10/14 PO 0856 Famotidine 20 MG DAILY 10/14 1101 AC PO Heparin Sodium 5,000 UNIT Q8 10/10 0600 AC 10/18 (Porcine) SC 1511 Insulin Aspart 0 Q4 10/13 0200 AC 10/18 SC 1510 Ketorolac 15 MG ONCE ONE 10/18 1845 DC 10/18 Tromethamine IV 10/18 1846 1912 Metoprolol Succinate 25 MG DAILY 10/10 1000 AC 10/14 PO 0857 Metoprolol Tartrate 5 MG ONCE ONE 10/17 2245 DC 10/17 IV 10/17 2246 2245 Multivitamins 1 TAB DAILY 10/12 1530 AC 10/14 PO 0856 Ondansetron HCl 4 MG Q6P PRN 10/11 1330 AC 10/13 IV 1548 Pentoxifylline 400 MG DAILY 10/10 1000 AC 10/16 PO 1501 Sodium Chloride 1,000 ML ONCE ONE 10/18 1500 DC 10/18 IV 10/18 1859 1656 Tamsulosin HCl 0.4 MG DAILY 10/10 1000 AC 10/14 PO 0856 Valacyclovir HCl 1,000 MG DAILY 10/10 1000 AC 10/14 PO 0856 Last 24 Hrs of Lab/Lam Results Last 24 Hrs of Labs/Mics: Laboratory Tests 10/18/17 1912: Lactic Acid 1.7 10/18/17 1350: Lactic Acid 3.4 H 10/18/17 1248: Lactic Acid Cancelled 10/18/17 0955: Lactic Acid 3.0 H 10/18/17 0615: Anion Gap 13, Estimated GFR > 60, BUN/Creatinine Ratio 27.0 H, Troponin I 0.10, Prolactin 10.6 10/18/17 0425: Lactic Acid 2.4 H, CBC w Diff NO MAN DIFF REQ, RBC 3.27 L, MCV 89.3, MCH 29.3, MCHC 32.9 L, RDW 16.6 H, MPV 9.9, Gran % 83.5 H, Lymphocytes % 8.4 L, Monocytes % 8.0, Eosinophils % 0.1, Basophils % 0, Absolute Granulocytes 3.4, Absolute Lymphocytes 0.3 L, Absolute Monocytes 0.3, Absolute Eosinophils 0, Absolute Basophils 0 10/17/17 2250: Lactic Acid 2.2 H 10/17/17 2250: Anion Gap 15, Estimated GFR > 60, BUN/Creatinine Ratio 23.6, Troponin I 0.12 *H, CBC w Diff NO MAN DIFF REQ, RBC 3.46 L, MCV 87.1, MCH 29.1, MCHC 33.4, RDW 16.2 H, MPV 9.7, Gran % 77.0 H, Lymphocytes % 13.0 L, Monocytes % 10.0 H, Eosinophils % 0, Basophils % 0, Absolute Granulocytes 2.5, Absolute Lymphocytes 0.4 L, Absolute Monocytes 0.3, Absolute Eosinophils 0, Absolute Basophils 0 10/17/175: Sodium Cancelled, Potassium Cancelled, Chloride Cancelled, Carbon Dioxide Cancelled, Anion Gap Cancelled, BUN Cancelled, Creatinine Cancelled, BUN/ Creatinine Ratio Cancelled Microbiology 10/18 1834 BLOOD: Blood Culture - COLB 10/18 1834 BLOOD: Blood Culture - COLB Assessment/Plan Assessment: 82-year-old male with past medical history significant for coronary artery disease status post OR, stent placement on dual antiplatelet regimen, HIV with CD4 count 22 on prophylactic antibiotics Bactrim, azithromycin, valacyclovir, Prezcobix, dolutegravir, depression, hypertension, type 2 diabetes mellitus, GERD, BPH, recently discharged for fever of unknown origin, retroperitoneal lymphadenopathy questionable lymphoma presenting to the emergency room for left hip pain status post fall x2. Problem List: #Altered mental status Patient was transferred to [facility] for evaluation of possible stroke/sudden onset of altered mental status. CT Head showed possible evolving infarct however MRI was negative. Neurology consulted did not warrant TPA treatment as no neurological deficit and unkonw time of onset. Patient is more awake, alert and oriented 3. He does have periods of confusion on and off. - Fall precaution. - Patient is on continuous bladder irrigation aspiration urology Dr. Victoria. Urology follow-up appreciated. - Follow ID recommendations. #Acute renal failure, likely from contrast use Patient has acute renal failure secondary to contrast-induced nephropathy. We will continue IV fluids and monitor his renal parameters. - Nephrology consult if worsening. -Avoid nephrotoxins. -Avoid hydrochlorothiazide #fall Hip x-ray, pelvic x-ray, lumbar spine x-ray, head/ cervical spine CT negative for acute fractures VitD /B12 levels low. On vitamin D and calcium supplementation. -Continue vit D and multivtiamin supplmentation -PT recommends home PT -cont pain control #FUO Tmax 24hrs: 104.7, Patient was last admitted for FUO. Ucx and blood cx , blood cultures, sputum culture thus far negative Rapid flu negative. Plan for IR guided lumbar puncture tomorrow. Will be NPO tonight. - CT Ab/pelvis w/ contrast did not show active infectious source including collection. -dc ceftriaxone per ID and continue azithromycin and Bactrim for prophylaxis. -continue HIV medications - Tylenol 650mg once for his spiked fever this morning. #Asymptomatic bacteriuria UA + for moderate LE and WBC >75 Urine cx negative. Patient had a renal ultrasound done following hematuria which showed echogenic material in his bladder lumen. Urology was consulted who suggested continuous bladder irrigation. In view of his acute stroke cystoscopy was deferred for now. We sent a urine culture today. #HIV Last CD4 count 22 -continue prescobix and dolutragravir daily. -continue Bactrim, azithromycin, valacyclovir #DM His blood sugars 150-138. We will continue NovoLog coverage every 4 hours. #Coronary artery disease status post stent placement -continue aspirin, statin, Plavix #Peripheral vascular disease -continue pentoxifylline 400 mg daily #Depression -continue Lexapro 10 mg daily #Hypertension -continue metoprolol. -hold hydrochlorothiazide #GERD -continue omeprazole #BPH s/p TURP -continue tamsulosin #Insomnia -continue zolpidem as needed for sleep #FULL CODE #DVT prophylaxis subcutaneous heparin Code-full code Problem List: 1. Fever of unknown origin 2. Altered mental status Pain Ratin Pain Location: n/a Pain Goal: Remain pain free Pain Plan: n/a Tomorrow's Labs & Rationales: bep cbc Levy BRAVO,Kendal 10/18/17 1143: Attending MD Review Statement Attending Statement Attending MD Statement: examined this patient, discuss w/resident/PA/SOAKING PIT OPERATOR, agreed w/resident/PA/SOAKING PIT OPERATOR, reviewed EMR data (avail), discussed with nursing, discussed with case mgmt, amended to note Attending Assessment/Plan: Patient was transferred to the general medical service yesterday but then became confused again as he has done on several occasions since admission. He was also noted to be tachycardic and was transferred back to the telemetry service. Rhythm appeared to be supraventricular tachycardia for which he was given a dose of metoprolol and Cardizem with improvement of his heart rate. He continues to be febrile. Blood pressure is stable. Telemetry monitoring is currently showing atrial fibrillation. It is noted that he had no telemetry events during monitoring when initially admitted. On examination he is confused and not participating in physical examination. Heart sounds are irregular. Lungs are clear bilaterally. Abdomen is soft and nontender. Eduardo catheter is in place with hematuria present. Has trace peripheral edema. Laboratory data shows no leukocytosis. Hemoglobin level is stable. Renal function is stable. Troponin level was mildly elevated at 0.12. This is increased from less than 0.01 on admission. It has trended down to 0.10 today. It is noted that echocardiogram at time of admission showed normal EF with no significant valvular abnormalities. Problems: 1. Fluctuating encephalopathy; likely toxic. 2. New onset atrial fibrillation 3. History of coronary artery disease on dual antiplatelet therapy currently on hold 4. Hematuria; we concern for urinary bladder hematoma. 5. Metastatic prostate cancer. 6. Fever of unknown origin. 7. AIDS Plan: -Patient remains with rapid ventricular response despite continuation of his metoprolol. Discuss with the cardiology service regarding titrating up the dose of metoprolol or switching to another rate control regimen. -Hold off anticoagulant therapy for now in view of his hematuria requiring blood transfusion during his admission and need for LP. -Patient is scheduled to undergo IR guided LP tomorrow. Antiplatelet therapy has been on hold for this. -Continue to monitor hemoglobin level and transfuse to keep hemoglobin greater than 8. -ID follow-up appreciated. Continue to monitor patient off antibiotic therapy. Follow-up with the ID service regarding need for prophylactic antibiotics/ antiviral regimen. -DVT prophylaxis with bilateral compression devices.
--- NOTE | 2017-10-18 10:39 | PN- Diabetes ---
Assessment/Plan Assessment: Patient is more confused today. Apparently he was transferred to a regular floor yesterday but quickly returned to the telemetry because he became unresponsive. He has received no medication by mouth because of swallowing problems. Family the patient is scheduled for an LP tomorrow by interventional radiology. At present he is on D5 half-normal saline at 50 cc/h. He is also on NovoLog coverage every 4 hours for sugar above 150. Most recent sugars are 262 and 258. Patient's serum creatinine is 1.0 with a BUN of 27. Plan: Suggest continue IV fluids with glucose in it and continue regular insulin coverage every 4 hours. Subjective Subjective: Patient is confused Objective Last 24 Hrs of Vital Signs/I&O Vital Signs Date Time Temp Pulse Resp B/P B/P Pulse O2 O2 Flow FiO2 Mean Ox Delivery Rate 10/18 0630 99.3 0214 97.6 87 20 118/60 100 02/04 0000 Nasal 2.0L Cannula 10/17 2335 103.9 98 20 102/50 95 02/03 2310 150 02/03 2245 180 122/66 02/03 2159 101.7 02/03 2145 101.7 136 18 132/70 95 02/03 1513 99.7 122 20 130/68 97 Room Air 02/ 1123 98 150/70 02/03 1122 98 150/70 Intake & Output 02/04 1600 02/04 0800 02/04 0000 Intake Total 1200 300 Output Total 2400 1500 Balance -1200 -1200 Intake, IV 1200 300 Output, Urine 2400 1500 Vital Signs Date Time Temp Pulse Resp B/P B/P Pulse O2 O2 Flow FiO2 Mean Ox Delivery Rate 10/18 0530 99.3 10/18 0514 97.6 87 20 118/60 100 02/04 0000 Nasal 2.0L Cannula 10/17 2335 103.9 98 20 102/50 95 02/03 2310 150 02/03 2245 180 122/66 02/03 2159 101.7 02/03 2145 101.7 136 18 132/70 95 02/03 1513 99.7 122 20 130/68 97 Room Air 02/ 1123 98 150/70 02/03 1122 98 150/70 Intake & Output 02/04 1600 /04 0800 02/04 0000 Intake Total 1200 300 Output Total 2400 1500 Balance -1200 -1200 Intake, IV 1200 300 Output, Urine 2400 1500 Physical Exam General Appearance: alert, awake, comfortable Head: normal appearance Neck: normal inspection Respiratory: normal breath sounds Cardiovascular: tachycardia Abdomen: normal bowel sounds, soft Current Medications: Current Medications Sig/Juma Start time Last Medication Dose Route Stop Time Status Admin Acetaminophen 1,000 MG .STK-MED ONE 10/17 215 DC IV 10/17 215 Acetaminophen 1,000 MG Q6P PRN 10/15 1730 AC 10/17 N/A 1 UNIT IV 2159 Ammonium Lactate 1 DILLAN BID 10/10 1000 AC 10/18 TOP 0106 Atorvastatin Calcium 80 MG 1700 10/14 1700 AC 10/17 PO 1703 Azithromycin 1,200 MG Wilkerson@1000 10/11 1000 AC 10/11 PO 1044 Cholecalciferol 1,000 IU DAILY 10/12 1445 AC 10/14 PO 0857 Dextrose/Sodium 1,000 ML Q20H 10/15 1000 AC 10/18 Chloride IV 0630 Diltiazem HCl 10 MG ONCE ONE 10/17 2300 DC 10/17 IV PUSH 10/17 2301 2310 Escitalopram Oxalate 10 MG DAILY 10/10 1000 AC 10/14 PO 0856 Famotidine 20 MG DAILY 10/14 1101 AC PO Heparin Sodium 5,000 UNIT Q8 10/10 0600 AC 10/18 (Porcine) SC 0622 Insulin Aspart 0 Q4 10/13 0200 AC 10/18 SC 0621 Metoprolol Succinate 25 MG DAILY 10/10 1000 AC 10/14 PO 0857 Metoprolol Tartrate 5 MG ONCE ONE 10/17 2245 DC 10/17 IV 10/17 2246 2245 Multivitamins 1 TAB DAILY 10/12 1530 AC 10/14 PO 0856 Ondansetron HCl 4 MG Q6P PRN 10/11 1330 AC 10/13 IV 1548 Pentoxifylline 400 MG DAILY 10/10 1000 AC 10/16 PO 1501 Tamsulosin HCl 0.4 MG DAILY 10/10 1000 AC 10/14 PO 0856 Valacyclovir HCl 1,000 MG DAILY 10/10 1000 AC 10/14 PO 0856 Findings Pertinent Lab/Lam Results: Laboratory Tests 10/18/ 0955 0615 0425 Chemistry Sodium (137 - 145 mmol/L) 145 Potassium (3.5 - 5.1 mmol/L) 4.0 Chloride (98 - 107 mmol/L) 113 H Carbon Dioxide (22 - 30 mmol/L) 19 L Anion Gap (5 - 16) 13 BUN (9 - 20 mg/dL) 27 H Creatinine (0.7 - 1.2 mg/dL) 1.0 Estimated GFR (>60 ml/min) > 60 BUN/Creatinine Ratio (7 - 25 %) 27.0 H Lactic Acid (0.7 - 2.1 mmol/L) Pending 2.4 H Troponin I (<0.11 ng/ml) 0.10 Prolactin (3.7 - 17.9 ng/mL) 10.6 Hematology CBC w Diff NO MAN DIFF REQ WBC (4.8 - 10.8 /CUMM) 4.1 L RBC (4.70 - 6.10 /CUMM) 3.27 L Hgb (14.0 - 18.0 G/DL) 9.6 L Hct (42 - 52 %) 29.2 L MCV (80.0 - 94.0 FL) 89.3 MCH (27.0 - 31.0 PG) 29.3 MCHC (33.0 - 37.0 G/DL) 32.9 L RDW (11.5 - 14.5 %) 16.6 H Plt Count (130 - 400 /CUMM) 137 MPV (7.4 - 10.4 FL) 9.9 Gran % (42.2 - 75.2 %) 83.5 H Lymphocytes % (20.5 - 51.1 %) 8.4 L Monocytes % (1.7 - 9.3 %) 8.0 Eosinophils % (0 - 5 %) 0.1 Basophils % (0.0 - 2.0 %) 0 Absolute Granulocytes (1.4 - 6.5 /CUMM) 3.4 Absolute Lymphocytes (1.2 - 3.4 /CUMM) 0.3 L Absolute Monocytes (0.10 - 0.60 /CUMM) 0.3 Absolute Eosinophils (0.0 - 0.7 /CUMM) 0 Absolute Basophils (0.0 - 0.2 /CUMM) 0 10/17 10/17 10/17 2250 2250 2155 Chemistry Sodium (137 - 145 mmol/L) 146 H Cancelled Potassium (3.5 - 5.1 mmol/L) 3.9 Cancelled Chloride (98 - 107 mmol/L) 112 H Cancelled Carbon Dioxide (22 - 30 mmol/L) 19 L Cancelled Anion Gap (5 - 16) 15 Cancelled BUN (9 - 20 mg/dL) 26 H Cancelled Creatinine (0.7 - 1.2 mg/dL) 1.1 Cancelled Estimated GFR (>60 ml/min) > 60 BUN/Creatinine Ratio (7 - 25 %) 23.6 Cancelled Lactic Acid (0.7 - 2.1 mmol/L) 2.2 H Troponin I (<0.11 ng/ml) 0.12 *H Hematology CBC w Diff NO MAN DIFF REQ WBC (4.8 - 10.8 /CUMM) 3.2 L RBC (4.70 - 6.10 /CUMM) 3.46 L Hgb (14.0 - 18.0 G/DL) 10.1 L Hct (42 - 52 %) 30.1 L MCV (80.0 - 94.0 FL) 87.1 MCH (27.0 - 31.0 PG) 29.1 MCHC (33.0 - 37.0 G/DL) 33.4 RDW (11.5 - 14.5 %) 16.2 H Plt Count (130 - 400 /CUMM) 133 MPV (7.4 - 10.4 FL) 9.7 Gran % (42.2 - 75.2 %) 77.0 H Lymphocytes % (20.5 - 51.1 %) 13.0 L Monocytes % (1.7 - 9.3 %) 10.0 H Eosinophils % (0 - 5 %) 0 Basophils % (0.0 - 2.0 %) 0 Absolute Granulocytes (1.4 - 6.5 /CUMM) 2.5 Absolute Lymphocytes (1.2 - 3.4 /CUMM) 0.4 L Absolute Monocytes (0.10 - 0.60 /CUMM) 0.3 Absolute Eosinophils (0.0 - 0.7 /CUMM) 0 Absolute Basophils (0.0 - 0.2 /CUMM) 0
[2017-10-18 16:01] VITALS: BP 137/70
--- NOTE | 2017-10-18 18:43 | Cons- Cardiology ---
General Information and HPI Consulting Request Date of Consult: 10/18/17 Requested By: Kendal Lockett MD History of Present Illness: This patient is an 82 year old male with history of coronary artery disease s/p MA, diabetes and HIV. He presented to the ER on October 10 with left hip pain after a fall. The patient has a fever of unkown origin and retroperitoneal lymphadenopathy. His hospital course was complicated by transient renal insufficiency and by decreased mental status and responsiveness. This patient now demonstrates atrial fibrillation with increased heart rate. According to his daughter, the patient, at baseline, does not report any chest discomfort, shortness of breath, lightheadedness or palpitations. His echo showed a noraml EF. Allergies/Medications Allergies: Coded Allergies: No Known Allergies (08/26/17) Home Med List: Ammonium Lactate 12 % LOTION 1 DILLAN TOP BID SKIN (Reported) Aspirin (Ecotrin*) 81 MG TABLET.DR 1 TAB PO DAILY HEART HEALTH (Reported) Azithromycin 600 MG TABLET 2 TAB PO QSUN ANTIBIOTIC (Reported) Clopidogrel Bisulfate (Clopidogrel) 75 MG TABLET 1 TAB PO DAILY HEART HEALTH (Reported) Darunavir/Cobicistat (Prezcobix 800 MG-150 MG Tablet) 800 MG-150 MG TABLET 1 TAB PO DAILY HIV (Reported) Desonide (Desowen) 0.05 % CREAM..G. 1 DILLAN TOP BID SKIN (Reported) apply to affected area(s) Diclofenac Sodium (Voltaren) 1 % GEL..GRAM. 1 DILLAN TOP BID PRN PAIN (Reported) apply to affected area(s) Dolutegravir Sodium (Tivicay) 50 MG TABLET 1 TAB PO DAILY HIV (Reported) Escitalopram Oxalate 10 MG TABLET 1 TAB PO DAILY DEPRESSION (Reported) Hydrochlorothiazide 12.5 MG CAPSULE 1 CAP PO DAILY HEART HEALTH (Reported) Insulin Glargine,Hum.rec.anlog (Toujeo Solostar) 300 UNIT/ML (1.5 ML) INSULN.PEN 40 UNIT SC DAILY DM (Reported) Metoprolol Succinate 25 MG TAB 1 TAB PO DAILY HEART HEALTH (Reported) Nut.tx.gluc.intoler,Lac-Fr,Soy (Glucerna) (Unknown Strength) LIQUID 1 BOT PO BID NUTRITIONAL SUPPLEMENT (Reported) Pantoprazole Sodium 40 MG TABLET.DR 1 TAB PO DAILY HEART HEALTH (Reported) Pentoxifylline 400 MG TABLET.ER 1 TAB PO DAILY UNKNOWN (Reported) Pravastatin Sodium 10 MG TABLET 1 TAB PO DAILY HEART HEALTH (Reported) [PREZCOBIX] 1 TAB PO DAILY RETROVIRAL Sitagliptin Phos/Metformin HCl (Janumet 50-1,000 MG Tablet) 50 MG-1,000 MG TABLET 1 TAB PO BID DM (Reported) Sulfamethoxazole/Trimethoprim (Sulfamethoxazole-Tmp Ds Tablet) 800 MG-160 MG TABLET 1 TAB PO Thursday ABT (Reported) Tamsulosin HCl 0.4 MG CAP.ER.24H 1 CAP PO DAILY ENLARGED PROSTATE (Reported) [Tivicay] 50 MG PO DAILY RETROVIRAL Valacyclovir HCl (Valacyclovir) 1,000 MG TABLET 1 TAB PO DAILY ANTIVIRAL ( Reported) Zolpidem Tartrate 10 MG TABLET 1 TAB PO QPMP SLEEP AIDE (Reported) Review of Systems Review of Systems: A review of systems is unobtainable. Past History Travel History Traveled to [place] past 21 day No Medical History Blood Transfusion Hx: No Neurological: NONE EENT: glaucoma Cardiovascular: CAD (s/p stent), hypertension, myocardial infarction Respiratory: NONE Gastrointestinal: GERD Hepatic: NONE Renal: benign prost hyperplasia Musculoskeletal: NONE Psychiatric: depression Endocrine: diabetes Blood Disorders: HIV Cancer(s): NONE [employer] TENDER/Reproductive: HIV Surgical History Surgical History: non-contributory Family History Relations & Conditions If Any: BROTHER Family hx of lung cancer Psychosocial History Services at Home: Home Health Aide, Occupational Therapy, Physical Therapy Smoking Status: Never Smoked ETOH Use: denies use Illicit Drug Use: denies illicit drug use Exam & Diagnostic Data Vital Signs and I&O Vital Signs Date Time Temp Pulse Resp B/P B/P Pulse O2 O2 Flow FiO2 Mean Ox Delivery Rate 10/18 1653 103.9 / 1601 98.0 120 20 137/70 97 02/ 1114 98 120/60 02/ 1111 98 120/70 / 0800 96 Nasal 2.0L Cannula 10/18 0630 99.3 10/18 0614 97.6 87 20 118/60 100 02/04 0000 Nasal 2.0L Cannula 10/17 2335 103.9 98 20 102/50 95 02/03 2310 150 02/ 2245 180 122/66 02/ 2159 101.7 02/ 2145 101.7 136 18 132/70 95 Intake & Output 02/04 1600 10/18 0800 10/18 0000 10/17 1600 10/17 0800 10/17 0000 Intake Total 1000 1200 300 700 825 625 Output Total 600 2400 0285 698 1386 0 Balance 400 -1200 -1200 300 -175 625 Intake, IV 1000 1200 300 600 825 625 Intake, Oral 0 100 Number 1 1 Bowel Movements Output, Urine 600 2400 [phone] 0 Physical Exam: General: WD/overweight male in no obvious distress; unresponsive to verbal stimuli HEENT: NC/AT, PERRL, EOMI Neck: no JVD, no carotid bruit Heart: irregularly irregular Lungs: clear bilaterally anteriorly ABdomen: soft, NT, +ve bowel sounds Extremities: no edema Assessment/Plan Assessment/Plan * This patient has atrial fibrillation with increased heart rate in the setting of mild left atrial enlargement and increased T4. Increase Metoprolol to 50mg BID. Begin IV heparin unless concern for bleeding. * Check a D-dimer and ABG. Consult Acknowledgment - Thank you for your consult request.
[2017-10-18 22:00] VITALS: BP 104/70
[2017-10-19 00:35] VITALS: BP 104/70
[2017-10-19 07:04] VITALS: BP 110/62
--- NOTE | 2017-10-19 07:36 | PN- Housestaff ---
Emiliano BRAVO,Ana Luisa 10/19/17 0736: Subjective Follow-up For: HIV, stroke, atrial fibrillation, fever of unknown origin Complaints: no complaints Tele-Events Since Last Visit: Atrial fibrillation heart rate 86 Subjective: Patient was seen and examined at bedside. Today he was lying in his bed saturating at 97% on 2 L of nasal oxygen. He is awake lethargic. He denies chest pain, chest pressure, weakness, altered sensation, fever. Review of Systems Constitutional: Reports: no symptoms. Cardiovascular: Reports: no symptoms. Respiratory: Reports: no symptoms. Gastrointestinal: Reports: no symptoms. Genitourinary: Reports: no symptoms. Musculoskeletal: Reports: no symptoms. Objective Last 24 Hrs of Vital Signs/I&O Vital Signs Date Time Temp Pulse Resp B/P B/P Pulse O2 O2 Flow FiO2 Mean Ox Delivery Rate 10/19 0704 61 20 110/62 97 Nasal Cannula 10/19 0522 95.7 10/19 0230 95.5 02/ 0000 95.5 10/19 0000 Nasal 2.0L Cannula 10/18 2200 97.7 73 20 104/70 93 Nasal Cannula 10/18 1911 102.1 / 1831 Nasal 2.0L Cannula 10/18 1653 103.9 / 1601 98.0 120 20 137/70 97 Intake & Output 10/19 1600 10/19 0800 02 0000 Intake Total 1000 375 Output Total 750 Balance 1000 -375 Intake, IV 1000 375 Output, Urine 750 Physical Exam General Appearance: Alert, Cooperative, No Acute Distress Skin: No Rashes, No Breakdown Cardiovascular: Normal S1, Normal S2, IRREGULAR Lungs: Normal Air Movement Abdomen: Soft, No Tenderness Neurological: Strength at 5/5 X4 Ext, Normal Tone, Sensation Intact Extremities: No Edema Current Medications: Current Medications Sig/Juma Start time Last Medication Dose Route Stop Time Status Admin Acetaminophen 1,000 MG Q6P PRN 10/15 1730 AC 10/18 N/A 1 UNIT IV 1653 Ammonium Lactate 1 DILLAN BID 10/10 1000 AC 10/19 TOP 0042 Atorvastatin Calcium 80 MG 1700 10/14 1700 AC 10/17 PO 1703 Cholecalciferol 1,000 IU DAILY 10/12 1445 AC 10/14 PO 0857 Dextrose/Sodium 1,000 ML Q20H 10/15 1000 AC 10/19 Chloride IV 1016 Escitalopram Oxalate 10 MG DAILY 10/10 1000 AC 10/14 PO 0856 Famotidine 20 MG DAILY 10/14 1101 AC PO Heparin Sodium 5,000 UNIT Q8 10/10 0600 AC 10/19 (Porcine) SC 0642 Insulin Aspart 0 Q4 10/13 0200 AC 10/19 SC 1037 Ketorolac 15 MG ONCE ONE 10/18 1845 DC 10/18 Tromethamine IV 10/18 1846 1912 Metoprolol Succinate 25 MG DAILY 10/10 1000 DC 10/14 PO 0857 Metoprolol Tartrate 50 MG BID 10/18 2359 AC PO Multivitamins 1 TAB DAILY 10/12 1530 AC 10/14 PO 0856 Ondansetron HCl 4 MG Q6P PRN 10/11 1330 AC 10/13 IV 1548 Pentoxifylline 400 MG DAILY 10/10 1000 AC 10/16 PO 1501 Sodium Chloride 1,000 ML ONCE ONE 10/18 1500 DC 10/18 IV 10/18 1859 1656 Tamsulosin HCl 0.4 MG DAILY 10/10 1000 AC 10/14 PO 0856 Valacyclovir HCl 1,000 MG DAILY 10/10 1000 AC 10/14 PO 0856 Last 24 Hrs of Lab/Lam Results Last 24 Hrs of Labs/Mics: Laboratory Tests 10/19/17 0640: Toxoplasma IgG Ab Pending, Toxoplasma IgM Ab Pending, Toxoplasma Ab Interp Pending 10/19/17 0640: Anion Gap 13, Estimated GFR > 60, BUN/Creatinine Ratio 33.3 H, CBC w Diff NO MAN DIFF REQ, RBC 3.08 L, MCV 88.9, MCH 29.2, MCHC 32.8 L, RDW 17.6 H, MPV 10.6 H, Gran % 80.8 H, Lymphocytes % 11.8 L, Monocytes % 6.7, Eosinophils % 0.5, Basophils % 0.2, Absolute Granulocytes 1.9, Absolute Lymphocytes 0.3 L, Absolute Monocytes 0.2, Absolute Eosinophils 0, Absolute Basophils 0, Ref Lab Test Result Pending, RPR Titer/FTA NONREACTIVE 10/18/17 2350: D-Dimer High Sensitivty 1277 H 10/18/17 2215: pH 7.40, pCO2 35, pO2 114 H, HCO3 21, ABG O2 Sat (Measured) 97.0, Carboxyhemoglobin 0.4 L, O2 Concentration % 2L, O2 Delivery Method N/C, Phlebotomy Draw Site RIGHT RADIAL 10/18/17 1912: Lactic Acid 1.7 10/18/17 1350: Lactic Acid 3.4 H 10/18/17 1248: Lactic Acid Cancelled Microbiology 10/19 UN[facility] N S: Fungal Culture - COLB 10/19 [facility] N S: AFB Culture with PCR Identification - COLB 10/19 [facility]K [facility] N S: AFB Smear Concentration - COLB 10/19 0700 CENT N S: CSF Culture - COLB 10/19 0700 CENT N S: Gram Stain - COLB 10/18 1834 BLOOD: Blood Culture - CAN Cancelled: SPECIMEN NOT RECEIVED IN LABORATORY 10/18 1834 BLOOD: Blood Culture - CAN Cancelled: SPECIMEN NOT RECEIVED IN LABORATORY Assessment/Plan Assessment: 82-year-old male with past medical history significant for coronary artery disease status post SC, stent placement on dual antiplatelet regimen, HIV with CD4 count 22 on prophylactic antibiotics Bactrim, azithromycin, valacyclovir, Prezcobix, dolutegravir, depression, hypertension, type 2 diabetes mellitus, GERD, BPH, recently discharged for fever of unknown origin, retroperitoneal lymphadenopathy questionable lymphoma presenting to the emergency room for left hip pain status post fall x2. Problem List: #Altered mental status [facility] evaluation of possible stroke/sudden onset of altered mental status. CT Head showed possible evolving infarct however MRI was negative. Neurology consulted did not warrant TPA treatment as no neurological deficit and unknown time of onset. Patient was transferred to [facility] during the weekend. A rapid response was called on him due to seizure-like activity. CAT scan of the head was negative. Another rapid response was called on him because of tachycardia with a heart rate of 180s. Metoprolol and Cardizem was given. He was transferred to telemetry for monitoring. He is in atrial fibrillation with a controlled heart rate of 80. He was seen by casino dealer who suggested IV heparin. Patient also has elevated d-dimer, we will do a CTA to rule out any PE. - Patient is more awake, alert and oriented 3. He does have periods of confusion on and off. - Fall precaution. - Patient is on continuous bladder irrigation aspiration urology Dr. Victoria. Urology follow-up appreciated. - Follow ID recommendations. #Acute renal failure, likely from contrast use Patient has acute renal failure secondary to contrast-induced nephropathy. We will continue IV fluids and monitor his renal parameters. -Nephrology consult if worsening. -Avoid nephrotoxins. -Avoid hydrochlorothiazide #fall Hip x-ray, pelvic x-ray, lumbar spine x-ray, head/ cervical spine CT negative for acute fractures VitD /B12 levels low. On vitamin D and calcium supplementation. -Continue vit D and multivtiamin supplmentation -PT recommends home PT -cont pain control #FUO Tmax 24hrs: 104.7, Patient was last admitted for FUO. Ucx and blood cx , blood cultures, sputum culture thus far negative Rapid flu negative. Plan for IR guided lumbar puncture today. - CT Ab/pelvis w/ contrast did not show active infectious source including collection. -dc ceftriaxone per ID and continue azithromycin and Bactrim for prophylaxis. -continue HIV medications - Tylenol 650mg once for his spiked fever this morning. #Asymptomatic bacteriuria UA + for moderate LE and WBC >75 Urine cx negative. Patient had a renal ultrasound done following hematuria which showed echogenic material in his bladder lumen. Urology was consulted who suggested continuous bladder irrigation. Patient is a plan for cystoscopy tomorrow. We will follow with urology today. #HIV Last CD4 count 22 -continue prescobix and dolutragravir daily. -continue Bactrim, azithromycin, valacyclovir. We will touch base with [facility] where he gets his HIV medication to guide us medical management. # DM His blood sugars 150-138. We will continue NovoLog coverage every 4 hours. #Coronary artery disease status post stent placement -continue aspirin, statin, Plavix #Peripheral vascular disease -continue pentoxifylline 400 mg daily #Depression -continue Lexapro 10 mg daily #Hypertension -continue metoprolol. -hold hydrochlorothiazide #GERD -continue omeprazole #BPH s/p TURP -continue tamsulosin #Insomnia -continue zolpidem as needed for sleep #FULL CODE #DVT prophylaxis subcutaneous heparin Code-full code PLAN follow-up ID, endocrinology, urology, CSF results, CTA results. Problem List: 1. Confusion 2. BPH (benign prostatic hyperplasia) 3. Fever of unknown origin 4. Diabetes 5. Stroke Pain Ratin Pain Location: NONE Pain Goal: Remain pain free Pain Plan: TYLENOL Tomorrow's Labs & Rationales: CBC,BEP Levy BRAVO,Kendal 10/19/17 1144: Attending MD Review Statement Attending Statement Attending MD Statement: examined this patient, discuss w/resident/PA/WARDROBE TECHNICIAN, agreed w/resident/PA/WARDROBE TECHNICIAN, reviewed EMR data (avail), discussed with nursing, discussed with case mgmt, amended to note Attending Assessment/Plan: Patient's mental status continues to wax and wane. This morning he is alert and answering questions appropriately. He is not in any distress. He denies any complaints of chest pain shortness of breath or palpitations. No events were reported overnight by nursing staff. He remains in atrial fibrillation with controlled ventricular response. Physical examination today is unrevealing of any focal neurologic deficit. Etiology of his waxing and waning mental status continues to be unclear. Lumbar puncture is scheduled for today. Also to be considered is possible seizures with postictal state. His prolactin level however is not elevated. He may benefit from continuous EEG monitoring if his lumbar puncture is not diagnostic. He continues to spike fever or remains hemodynamically stable. Will continue to monitor him off antibiotic therapy as recommended by the ID service. We will be reaching out to his HIV specialist at [facility] later on today. He is also scheduled to undergo cystoscopy with possible biopsy tomorrow. We will continue him on metoprolol 50 mg twice daily for his atrial fibrillation on hold off anticoagulation until LP and cystoscopy have been completed. His TSH is within normal limits however free T4 level is elevated. Will discuss the significance of this with the endocrinology service.
--- NOTE | 2017-10-19 08:49 | PN- Diabetes ---
Assessment/Plan Assessment: Apparently he was transferred patient awakened today and answered my question. He has had a great deal of variation in his mental status from day to day and time to time. The patient was transferred to a regular floor recently but quickly returned to the telemetry because he became unresponsive. He has received no medication by mouth because of swallowing problems. Family the patient is scheduled for an LP today by interventional radiology. At present he is on D5 half-normal saline at 50 cc/h. He is also on NovoLog coverage every 4 hours for sugar above 150. Most recent sugars are 222 and 225. Patient's serum creatinine is 1.0 with a BUN of 27. Plan: The patient's blood sugars are mildly elevated. His serum sodium is high. I would increase the IV with D5 half-normal saline to 75 cc/h. He is scheduled for an LP later today. Continue the present insulin coverage. Subjective Subjective: States he does not have a headache then falls asleep Objective Last 24 Hrs of Vital Signs/I&O Vital Signs Date Time Temp Pulse Resp B/P B/P Pulse O2 O2 Flow FiO2 Mean Ox Delivery Rate 10/19 703 61 20 110/62 97 Nasal Cannula 10/19 521 95.7 02/ 0230 95.5 02/05 0000 95.5 02/05 0000 Nasal 2.0L Cannula 10/18 2200 97.7 73 20 104/70 93 Nasal Cannula 10/18 1910 102.1 02 1831 Nasal 2.0L Cannula 10/18 1653 103.9 02/04 1601 98.0 120 20 137/70 97 02/04 1114 98 120/60 02/04 1111 98 120/70 Intake & Output 02 1600 02/05 0800 02/05 0000 Intake Total 1000 375 Output Total 750 Balance 1000 -375 Intake, IV 1000 375 Output, Urine 750 Vital Signs Date Time Temp Pulse Resp B/P B/P Pulse O2 O2 Flow FiO2 Mean Ox Delivery Rate 10/19 703 61 20 110/62 97 Nasal Cannula 10/19 521 95.7 02/05 0230 95.5 02/05 0000 95.5 02/05 0000 Nasal 2.0L Cannula 10/18 2200 97.7 73 20 104/70 93 Nasal Cannula 10/18 191 102.1 02/ 183 Nasal 2.0L Cannula 02/04 1653 103.9 02/04 1601 98.0 120 20 137/70 97 02/04 1114 98 120/60 02/04 1111 98 120/70 Intake & Output 10/19 1600 02 0800 02/ 0000 Intake Total 1000 375 Output Total 750 Balance 1000 -375 Intake, IV 1000 375 Output, Urine 750 Physical Exam General Appearance: lethargic Head: normal appearance Neck: normal inspection Respiratory: normal breath sounds Cardiovascular: regular rate/rhythm Extremities: normal inspection Current Medications: Current Medications Sig/Juma Start time Last Medication Dose Route Stop Time Status Admin Acetaminophen 1,000 MG Q6P PRN 10/15 1730 AC 10/18 N/A 1 UNIT IV 1653 Ammonium Lactate 1 DILLAN BID 10/10 1000 AC 10/19 TOP 0042 Atorvastatin Calcium 80 MG 1700 10/14 1700 AC 10/17 PO 1703 Azithromycin 1,200 MG Wilkerson@1000 10/11 1000 DC 10/11 PO 1044 Cholecalciferol 1,000 IU DAILY 10/12 1445 AC 10/14 PO 0857 Dextrose/Sodium 1,000 ML Q20H 10/15 1000 AC 10/19 Chloride IV 0205 Escitalopram Oxalate 10 MG DAILY 10/10 1000 AC 10/14 PO 0856 Famotidine 20 MG DAILY 10/14 1101 AC PO Heparin Sodium 5,000 UNIT Q8 10/10 0600 AC 10/19 (Porcine) SC 0642 Insulin Aspart 0 Q4 10/13 0200 AC 10/19 SC 0641 Ketorolac 15 MG ONCE ONE 10/18 1845 DC 10/18 Tromethamine IV 10/18 1846 1912 Metoprolol Succinate 25 MG DAILY 10/10 1000 DC 10/14 PO 0857 Metoprolol Tartrate 50 MG BID 10/18 2359 AC PO Multivitamins 1 TAB DAILY 10/12 1530 AC 10/14 PO 0856 Ondansetron HCl 4 MG Q6P PRN 10/11 1330 AC 10/13 IV 1548 Pentoxifylline 400 MG DAILY 10/10 1000 AC 10/16 PO 1501 Sodium Chloride 1,000 ML ONCE ONE 10/18 1500 DC 10/18 IV 10/18 1859 1656 Tamsulosin HCl 0.4 MG DAILY 10/10 1000 AC 10/14 PO 0856 Valacyclovir HCl 1,000 MG DAILY 10/10 1000 AC 10/14 PO 0856 Findings Pertinent Lab/Lam Results: Laboratory Tests 10/19 10/19 10/18 10/18 0640 0640 0642 8494 Blood Gas pH (7.35 - 7.45 PH) 7.40 pCO2 (35 - 45 TORR) 35 pO2 (80 - 100 TORR) 114 H HCO3 (21 - 28 MEQ/L) 21 ABG O2 Sat (Measured) (>96.0 %) 97.0 Carboxyhemoglobin (1.5 - 5.0 %) 0.4 L O2 Concentration % 2L O2 Delivery Method N/C Chemistry Sodium (137 - 145 mmol/L) 147 H Potassium (3.5 - 5.1 mmol/L) 3.6 Chloride (98 - 107 mmol/L) 113 H Carbon Dioxide (22 - 30 mmol/L) 21 L Anion Gap (5 - 16) 13 BUN (9 - 20 mg/dL) 30 H Creatinine (0.7 - 1.2 mg/dL) 0.9 Estimated GFR (>60 ml/min) > 60 BUN/Creatinine Ratio (7 - 25 %) 33.3 H Coagulation D-Dimer High Sensitivty (0 - 243 ng/ml) 1277 H Hematology CBC w Diff Pending WBC Pending RBC Pending Hgb Pending Hct Pending MCV Pending MCH Pending MCHC Pending RDW Pending Plt Count Pending MPV Pending Miscellaneous Ref Lab Test Result Pending Phlebotomy Draw Site RIGHT RADIAL Serology RPR Titer/FTA Pending Toxoplasma IgG Ab Pending Toxoplasma IgM Ab Pending Toxoplasma Ab Interp Pending 10/18 10/18 10/18 10/18 1912 1350 1248 0955 Chemistry Lactic Acid (0.7 - 2.1 mmol/L) 1.7 3.4 H Cancelled 3.0 H
[2017-10-19 09:38] LABS: ABSOLUTE BASOPHIL COUNT 0 /CUMM (0.0-0.2); ABSOLUTE EOSINOPHIL COUNT 0 /CUMM (0.0-0.7); ABSOLUTE GRANULOCYTE CT 1.9 /CUMM (1.4-6.5); ABSOLUTE LYMPH COUNT 0.3 /CUMM (1.2-3.4); ABSOLUTE MONOCYTE COUNT 0.2 /CUMM (0.10-0.60); BASOPHIL % 0.2 % (0.0-2.0); EOSINOPHIL % 0.5 % (0-5); HEMATOCRIT 27.4 % (42-52); MEAN CORPUSCULAR HGB 29.2 PG (27.0-31.0); MEAN CORPUSCULAR HGB CONC 32.8 G/DL (33.0-37.0); MEAN CORPUSCULAR VOLUME 88.9 FL (80.0-94.0); MEAN PLATELET VOLUME 10.6 FL (7.4-10.4); RBC DISTRIBUTION WIDTH 17.6 % (11.5-14.5); RED BLOOD CELL CT 3.08 /CUMM (4.70-6.10); WHITE BLOOD CELL COUNT 2.3 /CUMM (4.8-10.8)
[2017-10-19 09:39] LABS: GRANULOCYTE % 80.8 % (42.2-75.2); PLATELET COUNT 93 /CUMM (130-400)
--- NOTE | 2017-10-19 11:39 | PN- Infect Dx ---
Subjective Subjective: MAXIMUM TEMPERATURE 103.9. He does not offer any complaints. His EKG has empirically been interpreted as atrial fibrillation, with Cardiology recommendations noted. Objective Last 24 Hrs of Vital Signs/I&O Vital Signs Date Time Temp Pulse Resp B/P B/P Pulse O2 O2 Flow FiO2 Mean Ox Delivery Rate 10/19 0704 61 20 110/62 97 Nasal Cannula 10/19 0522 95.7 10/19 0230 95.5 02 0000 95.5 10/19 0000 Nasal 2.0L Cannula 10/18 2200 97.7 73 20 104/70 93 Nasal Cannula 10/18 1911 102.1 10/18 1831 Nasal 2.0L Cannula 10/18 1653 103.9 10/18 1601 98.0 120 20 137/70 97 Intake & Output 10/19 1600 10/19 0800 10/19 0000 Intake Total 1000 375 Output Total 750 Balance 1000 -375 Intake, IV 1000 375 Output, Urine 750 Physical Exam Other Physical Findings: He is awake and alert, appearing in no acute distress HEENT dry oral mucosa Neck is supple with no adenopathy Lungs crackles at the left base Heart irregular rhythm with no murmur Abdomen is soft, nontender with positive bowel sounds Extremities no cyanosis, clubbing or edema Eduardo catheter remains in place Results Last 24 Hours of Lab Results: Laboratory Tests 10/19 10/19 10/18 0640 0640 2350 Chemistry Sodium (137 - 145 mmol/L) 147 H Potassium (3.5 - 5.1 mmol/L) 3.6 Chloride (98 - 107 mmol/L) 113 H Carbon Dioxide (22 - 30 mmol/L) 21 L Anion Gap (5 - 16) 13 BUN (9 - 20 mg/dL) 30 H Creatinine (0.7 - 1.2 mg/dL) 0.9 Estimated GFR (>60 ml/min) > 60 BUN/Creatinine Ratio (7 - 25 %) 33.3 H Coagulation D-Dimer High Sensitivty (0 - 243 ng/ml) 1277 H Hematology CBC w Diff NO MAN DIFF REQ WBC (4.8 - 10.8 /CUMM) 2.3 L RBC (4.70 - 6.10 /CUMM) 3.08 L Hgb (14.0 - 18.0 G/DL) 9.0 L Hct (42 - 52 %) 27.4 L MCV (80.0 - 94.0 FL) 88.9 MCH (27.0 - 31.0 PG) 29.2 MCHC (33.0 - 37.0 G/DL) 32.8 L RDW (11.5 - 14.5 %) 17.6 H Plt Count (130 - 400 /CUMM) 93 L MPV (7.4 - 10.4 FL) 10.6 H Gran % (42.2 - 75.2 %) 80.8 H Lymphocytes % (20.5 - 51.1 %) 11.8 L Monocytes % (1.7 - 9.3 %) 6.7 Eosinophils % (0 - 5 %) 0.5 Basophils % (0.0 - 2.0 %) 0.2 Absolute Granulocytes (1.4 - 6.5 /CUMM) 1.9 Absolute Lymphocytes (1.2 - 3.4 /CUMM) 0.3 L Absolute Monocytes (0.10 - 0.60 /CUMM) 0.2 Absolute Eosinophils (0.0 - 0.7 /CUMM) 0 Absolute Basophils (0.0 - 0.2 /CUMM) 0 Miscellaneous Ref Lab Test Result Pending Serology RPR Titer/FTA (NONREACTIVE) NONREACTIVE Toxoplasma IgG Ab Pending Toxoplasma IgM Ab Pending Toxoplasma Ab Interp Pending 10/18 10/18 10/18 10/18 2215 1912 1350 1248 Blood Gas pH (7.35 - 7.45 PH) 7.40 pCO2 (35 - 45 TORR) 35 pO2 (80 - 100 TORR) 114 H HCO3 (21 - 28 MEQ/L) 21 ABG O2 Sat (Measured) (>96.0 %) 97.0 Carboxyhemoglobin (1.5 - 5.0 %) 0.4 L O2 Concentration % 2L O2 Delivery Method N/C Chemistry Lactic Acid (0.7 - 2.1 mmol/L) 1.7 3.4 H Cancelled Miscellaneous Phlebotomy Draw Site RIGHT RADIAL RPR October 19 nonreactive Last 24 Hours of Lam Results: Blood cultures October 16 negative Assessment/Plan Impression: Recurrent fevers of unclear etiology with recent cultures, chest x-ray and CT scan of the abdomen and pelvis negative for any obvious focus of infection. 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 Possibilities include cryptococcal meningitis and progressive multifocal leukoencephalopathy, though his recent LP was negative for cryptococcus and his MRI is not suggestive of PML. His previous CSF did reveal 2 oligoclonal bands, of unclear significance. His fever could be noninfectious in etiology, for example drug fever or lymphoma, with retroperitoneal, left inguinal and iliac lymphadenopathy noted on his CT scans. Metastatic prostate cancer is also a concern, though unlikely to explain his fevers, and he is tentatively scheduled for a cystoscopy/fulguration in the a.m., at which time a prostate biopsy can be obtained. He is currently off his antiretroviral medicines as well as his Bactrim and Azithromycin prophylaxis, though he apparently remains on the Valacyclovir for unclear reasons. Suggestion: 1. Would discuss his current status and prophylaxis medications with his HIV physician in [place] 2. Await lumbar puncture (send for usual studies as well as cryptococcal antigen, RPR, AFB and fungal cultures, and PCR for HSV and JORGE virus) 3. Neurology follow-up regarding the positive oligoclonal bands on his previous CSF 4. Discontinue all nonessential medications 5. Follow-up CTA of the chest 6. Further management of his atrial fibrillation/anticoagulation per Cardiology 7. Follow-up serum cryptococcal antigen and toxoplasma titers 8. Await possible cystoscopy and prostate biopsy on October 20 per Urology
--- NOTE | 2017-10-19 15:13 | CT SCAN REPORT ---
EXAMINATION: CT CHEST PE STUDY CLINICAL INFORMATION: New onset atrial fibrillation. Tachycardia. Presumptive diagnosis of pulmonary embolism. COMPARISON: CT scan of the abdomen and pelvis dated 10/13/2017. CT scan of the chest, abdomen and pelvis dated 08/26/2017. TECHNIQUE: Prior to contrast administration, localization images were obtained. After the administration of 95 and mL of intravenous Optiray 350, multidetector CT volume acquisition of the chest was performed. 3-D postprocessing was performed with multiplanar reconstructions and MIP images obtained at the acquisition workstation under concurrent physician supervision. DLP: 471.33 mGy-cm. FINDINGS: Pulmonary arteries: The bolus timing on this study was acceptable for visualization of the pulmonary arterial tree. There are no intraluminal pulmonary arterial filling defects present to suggest pulmonary embolism in the main pulmonary artery, right and left main pulmonary artery, lobar and segmental branches. Lungs: The lungs show a small right-sided and trace left-sided pleural effusion with associated subsegmental atelectasis in the lower lobes. There is some patchy parenchymal opacity seen in the left upper lobe, suspicious for subtle pneumonitis. No dense consolidation is seen. The central airways are patent. No pulmonary nodules, masses or pneumothorax. Aorta and heart: The heart is normal in size. The ascending aorta is dilated, measuring 4.4 cm in maximal AP diameter at the level of the pulmonary arterial bifurcation. The descending aorta at the same level measures 3.4 cm and the aortic arch just beyond the takeoff of the left subclavian artery measures 3.2 cm. There is no pericardial effusion Lymphatic structures: In the subcarinal region, there is a mildly enlarged lymph node, measuring 1.5 cm in short axis as compared to 1.3 cm on 08/26/2017 There is no other mediastinal, hilar or axillary lymphadenopathy. Upper abdomen: Limited evaluation of the upper abdominal viscera demonstrates no focal abnormality. Bones: No significant focal findings. IMPRESSION: 1. No evidence of pulmonary embolism. 2. Ascending aortic aneurysm and borderline ascending aortic aneurysm, unchanged from 08/26/2017. 3. Small right and trace left-sided pleural effusion with associated bibasilar atelectatic changes, new when compared to 08/26/2017. 4. Patchy parenchymal opacity in the left upper lobe, suspicious for subtle pneumonitis. 5. Mildly enlarged subcarinal lymph node, possibly reactive.
--- NOTE | 2017-10-19 15:59 | Event Note ---
Event Note Event Note: I spoke to UPPER AND BOTTOM LACER HANDAv altamirano, is the patient's UPPER AND BOTTOM LACER HAND at the HIV clinic in [place]. According to him patient is noncompliant with his medication and had normal mentation since he last saw him. His last CD4 count was 82 and viral load was 182 in June 2017 [his previous viral load was 20,000. He suggested to continue Bactrim [Thursday and Thursday] and azithromycin [once a week] and to discontinue valacyclovir. He requested to do a repeat CD4 and viral load.
--- NOTE | 2017-10-19 17:30 | INTERVENTIONAL RADIOLOGY RPT ---
CLINICAL HISTORY: The patient is a 82-year-old male with possible meningitis, who presents to interventional radiology for fluoroscopically-guided lumbar puncture. PROCEDURES: Fluoroscopically-guided lumbar puncture. PHYSICIANS: Dr. Damien Kumar (attending). The attending interventional radiologist was present during the procedure and related imaging, and reviewed the report. MEDICATIONS: A mL 1% lidocaine SQ. COMPLICATIONS: None. ESTIMATED BLOOD LOSS: <5 mL. SPECIMENS: 8 mL clear CSF. Specimens were appropriately labeled and sent to the laboratory for evaluation with request to inform the referring physician of results. FLUOROSCOPY TIME: 0.6 minutes. Number of images (excluding 4 last image hold images): None PROCEDURE NOTE: Informed consent was obtained from the patient's sister prior to the procedure. During this process, the procedure and potential alternatives were explained along with the intended outcome and benefits. The risks of the procedure, including the possibility of an unsuccessful procedure, as well as the risk of not doing the procedure, were discussed. The patient's sister was given the opportunity to ask questions regarding the procedure and appeared competent to make decisions. A signed consent form documenting this discussion was placed in the medical record. A time-out procedure was performed. Appropriate pre-procedure medical history and imaging studies were reviewed. The patient was placed prone on the fluoroscopy table. Fluoroscopic images of the lumbar spine were obtained to localize the L3-L4 level. The patient's back was prepped and draped in the standard sterile fashion. 8 mL of 1% lidocaine was used to obtain local anesthesia the skin and deeper tissues. A 22-gauge Sprotte needle was then passed through the introducer needle into the spinal canal, until CSF flowed. CSF was collected and sent for requested laboratory analysis. The spinal needle was removed and a sterile dressing applied. FINDINGS: 1. Clear CSF. IMPRESSION: Fluoroscopic-guided lumbar puncture as described. PLAN: The patient was stable after the procedure and was transferred to the interventional recovery area. The patient will be transferred to the floor.
--- NOTE | 2017-10-19 18:20 | PN- Cardiology ---
Subjective Subjective: * Patient is more alert today and was able to communicate with his daughter. No complaints. * atrial fibrillation with controlled heart rate. Objective Vital Signs and I&Os Vital Signs Date Time Temp Pulse Resp B/P B/P Pulse O2 O2 Flow FiO2 Mean Ox Delivery Rate 10/19 1636 98.5 10/19 1614 Nasal 2.0L Cannula 10/19 1513 97.7 80 16 158/80 10/19 1512 97.7 80 16 158/80 10/19 1317 Nasal 2.0L Cannula 10/19 0800 94 Nasal 2.0L Cannula 10/19 0704 61 20 110/62 97 Nasal Cannula 10/19 0522 95.7 10/19 0230 95.5 10/19 0000 95.5 10/19 0000 Nasal 2.0L Cannula 10/18 2200 97.7 73 20 104/70 93 Nasal Cannula 10/18 1911 102.1 10/18 1831 Nasal 2.0L Cannula Intake & Output 10/19 1600 10/19 0800 10/19 0000 10/18 1600 10/18 0800 10/18 0000 Intake Total 3262 764 4866 1200 300 Output Total 892 537 7153 1500 Balance 1000 -375 400 -1200 -1200 Intake, IV 7851 868 2213 1200 300 Intake, Oral 0 Number 1 Bowel Movements Output, Urine 497 651 1067 1500 Physical Exam: General: WD/overweight male in no obvious distress; unresponsive to verbal stimuli HEENT: NC/AT, PERRL, EOMI Neck: no JVD, no carotid bruit Heart: irregularly irregular Lungs: clear bilaterally anteriorly ABdomen: soft, NT, +ve bowel sounds Extremities: no edema Assessment/Plan Assessment/Plan * Doing better on Metoprolol 50mg BID. Begin chronic anticoagulation for stroke prophylaxis in the setting of atrial fibrillation unless there is concern for bleeding. Continue telemetry? Yes
[2017-10-19 22:14] VITALS: BP 108/60
--- NOTE | 2017-10-19 23:01 | PN- Neurology ---
See Addendum Subjective Subjective: somlolent briefly arousable Review of Systems: minimal speech daughter states awakens mid day Objective Vital Signs and I&Os Vital Signs Date Time Temp Pulse Resp B/P B/P Pulse O2 O2 Flow FiO2 Mean Ox Delivery Rate 10/19 2214 98.1 105 20 108/60 98 Room Air 10/19 1636 98.5 10/19 1614 Nasal 2.0L Cannula 10/19 1600 95 Room Air 10/19 1513 97.7 80 16 158/80 02 1512 97.7 80 16 158/80 10/19 1317 Nasal 2.0L Cannula 10/19 0800 94 Nasal 2.0L Cannula 10/19 0704 61 20 110/62 97 Nasal Cannula 10/19 0522 95.7 10/19 0230 95.5 10/19 0000 95.5 10/19 0000 Nasal 2.0L Cannula Intake & Output 10/19 1600 10/19 0800 / 0000 10/18 1600 10/18 0800 10/18 0000 Intake Total 280 3364 613 1413 1200 300 Output Total 600 002 467 7331 1500 Balance -320 1000 -375 400 -1200 -1200 Intake, IV 0001 715 3044 1200 300 Intake, Oral 280 0 Number 1 Bowel Movements Output, Urine 600 509 058 3057 1500 Physical Exam: briefly arousable mutters moves upper extremity equally Current Medications: Current Medications Sig/Juma Start time Last Medication Dose Route Stop Time Status Admin Acetaminophen 1,000 MG Q6P PRN 10/15 1730 AC 10/18 N/A 1 UNIT IV 1653 Ammonium Lactate 1 DILLAN BID 10/10 1000 AC 10/19 TOP 2129 Aspirin 81 MG DAILY 10/19 1619 DC PO Atorvastatin Calcium 80 MG 1700 10/14 1700 AC / PO 1729 Azithromycin 1,200 MG ONCE ONE 10/19 1630 DC 10/19 PO 10/19 1631 1729 Cholecalciferol 1,000 IU DAILY 10/12 1445 AC / PO 1511 Dextrose/Sodium 1,000 ML Q20H 10/15 1000 AC /05 Chloride IV 1740 Escitalopram Oxalate 10 MG DAILY 10/10 1000 AC / PO 1512 Famotidine 20 MG DAILY 10/14 1101 AC / PO 1512 Heparin Sodium 25,000 UNIT Q24H 10/19 1630 CAN (Porcine) IV Sodium Chloride 500 ML Heparin Sodium 5,000 UNIT Q8 10/10 0600 AC 10/19 (Porcine) SC 2129 Insulin Aspart 0 Q4 10/13 0200 AC 10/19 SC 2136 Lidocaine 0 .STK-MED ONE 10/19 1214 DC .ROUTE Metoprolol Tartrate 50 MG BID 10/18 2359 AC 10/19 PO 1512 Multivitamins 1 TAB DAILY 10/12 1530 AC 10/19 PO 1512 Ondansetron HCl 4 MG Q6P PRN 10/11 1330 AC 10/19 IV 1542 Pentoxifylline 400 MG DAILY 10/10 1000 AC 10/19 PO 1513 Tamsulosin HCl 0.4 MG DAILY 10/10 1000 AC 10/19 PO 1513 Trimethoprim/ 1 TAB 10/21 1000 AC Sulfamethoxazole PO 10/22 0959 Valacyclovir HCl 1,000 MG DAILY 10/10 1000 DC 10/19 PO 1511 Assessment/Plan Assessment: MRI: IMPRESSION: 1. No acute infarcts are demonstrated in the cerebellum or elsewhere. 2. There is a small focus of diffusion hyperintensity without low ADC map signal in the right centrum semiovale consistent with subacute areas of ischemia. 3. There is moderate diffuse volume loss and there are relatively extensive chronic microvascular ischemic changes. progressive mental status change Plan: consider lumbar puncture/CSF analysis TSH/cortisol level if not done
[2017-10-20 06:42] VITALS: BP 128/78
--- NOTE | 2017-10-20 06:51 | PN- Housestaff ---
Emiliano BRAVO,Ana Luisa 10/20/17 0651: Subjective Follow-up For: Fever of unknown origin, HIV Complaints: no complaints Tele-Events Since Last Visit: Atrial fibrillation heart rate 80 Subjective: Patient was seen and examined at bedside. He is awake alert oriented 3. No overnight events. He offers no complaints. Able to follow commands. He denies chest pain, chest pressure, fever, abdominal pain, weakness Review of Systems Constitutional: Reports: no symptoms. Cardiovascular: Reports: no symptoms. Respiratory: Reports: no symptoms. Gastrointestinal: Reports: no symptoms. Genitourinary: Reports: no symptoms. Musculoskeletal: Reports: no symptoms. Objective Last 24 Hrs of Vital Signs/I&O Vital Signs Date Time Temp Pulse Resp B/P B/P Pulse O2 O2 Flow FiO2 Mean Ox Delivery Rate 10/20 0850 Nasal 2.0L Cannula 10/20 0642 97.6 106 20 128/78 97 Room Air 10/19 2214 98.1 105 20 108/60 98 Room Air 10/19 1636 98.5 10/19 1614 Nasal 2.0L Cannula 10/19 1600 95 Room Air 10/19 1513 97.7 80 16 158/80 10/19 1512 97.7 80 16 158/80 05 1317 Nasal 2.0L Cannula Intake & Output 10/20 1600 10/20 0800 10/20 0000 Intake Total 600 Output Total 675 400 Balance -75 -400 Intake, IV 600 Number 2 Bowel Movements Output, Urine 675 400 Physical Exam General Appearance: Alert, Oriented X3, Cooperative, No Acute Distress Skin: No Rashes, No Breakdown Neck: Supple, No JVD, No thryomegaly Cardiovascular: Normal S1, Normal S2, No Murmurs Lungs: Normal Air Movement Abdomen: Normal Bowel Sounds, Soft, No Tenderness, No Hepatospenomegaly Neurological: Normal Speech, Strength at 5/5 X4 Ext, Normal Tone, Sensation Intact Extremities: No Cyanosis, No Edema, Normal Pulses Current Medications: Current Medications Sig/Juma Start time Last Medication Dose Route Stop Time Status Admin Acetaminophen 1,000 MG Q6P PRN 10/15 1730 AC 10/18 N/A 1 UNIT IV 1653 Ammonium Lactate 1 DILLAN BID 10/10 1000 AC 10/20 TOP 1048 Apixaban 2.5 MG BID 10/20 1000 AC PO Aspirin 81 MG DAILY 10/20 1000 AC PO Aspirin 81 MG DAILY 10/19 1619 DC PO Atorvastatin Calcium 80 MG 1700 10/14 1700 AC 10/19 PO 1729 Azithromycin 1,200 MG ONCE ONE 10/19 1630 DC 10/19 PO 10/19 1631 1729 Cholecalciferol 1,000 IU DAILY 10/12 1445 AC 10/19 PO 1511 Dextrose/Sodium 1,000 ML Q20H 10/15 1000 AC 10/20 Chloride IV 0641 Escitalopram Oxalate 10 MG DAILY 10/10 1000 AC 10/19 PO 1512 Famotidine 20 MG DAILY 10/14 1101 AC 10/19 PO 1512 Heparin Sodium 25,000 UNIT Q24H 10/19 1630 CAN (Porcine) IV Sodium Chloride 500 ML Heparin Sodium 5,000 UNIT Q8 10/10 0600 AC 10/20 (Porcine) SC 0538 Insulin Aspart 0 Q4 10/13 0200 AC 10/20 SC 1046 Metoprolol Tartrate 50 MG BID 10/18 2359 AC 10/19 PO 1512 Multivitamins 1 TAB DAILY 10/12 1530 AC 10/19 PO 1512 Ondansetron HCl 4 MG .STK-MED ONE 10/19 1538 DC IM 10/19 1539 Ondansetron HCl 4 MG Q6P PRN 10/11 1330 AC 10/19 IV 1542 Pentoxifylline 400 MG DAILY 10/10 1000 AC 10/19 PO 1513 Potassium Chloride 40 MEQ ONCE ONE 10/20 0900 DC PO 10/20 0901 Tamsulosin HCl 0.4 MG DAILY 10/10 1000 AC 10/19 PO 1513 Trimethoprim/ 1 TAB 10/21 1000 AC Sulfamethoxazole PO 10/22 0959 Valacyclovir HCl 1,000 MG DAILY 10/10 1000 DC 10/19 PO 1511 Last 24 Hrs of Lab/Lam Results Last 24 Hrs of Labs/Mics: Laboratory Tests 10/20/17 0625: Total Abs Lymphocytes Pending 10/20/17 0625: Anion Gap 14, Estimated GFR > 60, BUN/Creatinine Ratio 26.0 H, Magnesium 1.6, CBC w Diff NO MAN DIFF REQ, RBC 2.96 L, MCV 87.6, MCH 28.8, MCHC 32.9 L, RDW 17.6 H, MPV 10.8 H, Gran % 67.9, Lymphocytes % 25.2, Monocytes % 5.9, Eosinophils % 0.6, Basophils % 0.4, Absolute Granulocytes 2.0, Absolute Lymphocytes 0.7 L, Absolute Monocytes 0.2, Absolute Eosinophils 0, Absolute Basophils 0, Lymphocyte Subset Cmmnt Pending, Absolute CD3 Count Pending, % CD3 Mature T-Lymphs Pending, % CD4 Forrest Pending, Absolute CD4 Count Pending, T- Help/Suppress Ratio Pending, % CD8 Suppressor Pending, Absolute CD8 Count Pending, HIV 1&2 RNA (PCR) Pending Assessment/Plan Assessment: 82-year-old male with past medical history significant for coronary artery disease status post PR, stent placement on dual antiplatelet regimen, HIV with CD4 count 22 on prophylactic antibiotics Bactrim, azithromycin, valacyclovir, Prezcobix, dolutegravir, depression, hypertension, type 2 diabetes mellitus, GERD, BPH, recently discharged for fever of unknown origin, retroperitoneal lymphadenopathy questionable lymphoma presenting to the emergency room for left hip pain status post fall x2. Problem List: #Altered mental status Patient was transferred to [facility] for evaluation of possible stroke/sudden onset of altered mental status. CT Head showed possible evolving infarct however MRI was negative. Neurology consulted did not warrant TPA treatment as no neurological deficit and unknown time of onset. Patient was transferred to [facility] back. A rapid response was called on him due to seizure-like activity. CAT scan of the head was negative. Another rapid response was called on him because of tachycardia with a heart rate of 180s. Metoprolol and Cardizem was given. He was transferred to telemetry for monitoring. He is in atrial fibrillation with a controlled heart rate of 80. He was seen by meter changes records clerk who suggested IV heparin. PE was ruled out. Patient was started on Eliquis 2.5 mg twice a day today in view of atrial fibrillation. Patient was seen by urology yesterday who suggested to stop the continuous bladder irrigation in view of clear urine. He also advised to keep the Eduardo for 1 more week. Patient afebrile for more than 48 hours. Was followed by infectious disease who suggested to get the help of IR to take biopsy of his lymphadenopathy. #Acute renal failure, likely from contrast use-resolved -Avoid nephrotoxins. -Avoid hydrochlorothiazide #fall Hip x-ray, pelvic x-ray, lumbar spine x-ray, head/ cervical spine CT negative for acute fractures VitD /B12 levels low. On vitamin D and calcium supplementation. -Continue vit D and multivtiamin supplmentation -PT recommends STR -cont pain control #FUO Patient afebrile for more than 48 hours. No evidence of any source of infection. Urine culture blood culture negative thus far. -continue azithromycin and Bactrim for prophylaxis. -continue HIV medications - Tylenol 650mg once for his spiked fever this morning. #Asymptomatic bacteriuria UA + for moderate LE and WBC >75 Urine cx negative. We will follow him off antibiotics. #HIV Last CD4 count 82 in June 2017. We will repeat a CD4 count and viral load -continue prescobix and dolutragravir daily. -continue Bactrim, azithromycin, # DM His blood sugars 150-138. We will continue NovoLog coverage every 4 hours. #Coronary artery disease status post stent placement -continue aspirin, statin, Plavix #Peripheral vascular disease -continue pentoxifylline 400 mg daily #Depression -continue Lexapro 10 mg daily #Hypertension -continue metoprolol. -hold hydrochlorothiazide #GERD -continue omeprazole #BPH s/p TURP -continue tamsulosin #Insomnia -continue zolpidem as needed for sleep #FULL CODE #DVT prophylaxis subcutaneous heparin Code-full code PLAN follow-up ID, endocrinology, urology, CSF results, CTA results. Problem List: 1. Confusion 2. Stroke 3. Diabetes Pain Ratin Pain Location: NONE Pain Goal: Remain pain free Pain Plan: TYLENOL Tomorrow's Labs & Rationales: CBC,BEP Levy BRAVO,Kendal 10/20/17 1210: Attending MD Review Statement Attending Statement Attending MD Statement: examined this patient, discuss w/resident/PA/AREA COORDINATOR, agreed w/resident/PA/AREA COORDINATOR, reviewed EMR data (avail), discussed with nursing, discussed with case mgmt, amended to note Attending Assessment/Plan: Patient seen and examined. Lying in bed not in acute distress no issues overnight. This morning he is a lot. He is following simple commands. Lumbar puncture was done yesterday also for cultures are negative. Cell count no suggestive of an infectious process. Etiology of his waxing and waning mental status as well as fever with a currently unknown. He has fortunately been afebrile for well over 24 hours. Hematuria has also significantly improved and urology services no longer recommending any interventions. Recommendations: -Anticoagulation therapy with eliquis. Adjust per pharmacy recommendations due to his HAART therapy, -Resume antiplatelet therapy with aspirin. Since patient will be on oral anticoagulation therapy recommended discontinuation of Plavix which was started over 2 years ago following PCI and stenting. -Patient was participating with physical therapy today which is a significant improvement. Begin discharge planning to residential facility. -Continue his HAART and prophylactic antibiotic therapy.
[2017-10-20 07:50] LABS: ABSOLUTE BASOPHIL COUNT 0 /CUMM (0.0-0.2); ABSOLUTE EOSINOPHIL COUNT 0 /CUMM (0.0-0.7); ABSOLUTE LYMPH COUNT 0.7 /CUMM (1.2-3.4); ABSOLUTE MONOCYTE COUNT 0.2 /CUMM (0.10-0.60); BASOPHIL % 0.4 % (0.0-2.0); EOSINOPHIL % 0.6 % (0-5); GRANULOCYTE % 67.9 % (42.2-75.2); HEMATOCRIT 25.9 % (42-52); MEAN CORPUSCULAR HGB 28.8 PG (27.0-31.0); MEAN CORPUSCULAR HGB CONC 32.9 G/DL (33.0-37.0); MEAN CORPUSCULAR VOLUME 87.6 FL (80.0-94.0); MEAN PLATELET VOLUME 10.8 FL (7.4-10.4); PLATELET COUNT 108 /CUMM (130-400); RBC DISTRIBUTION WIDTH 17.6 % (11.5-14.5); RED BLOOD CELL CT 2.96 /CUMM (4.70-6.10); WHITE BLOOD CELL COUNT 2.9 /CUMM (4.8-10.8)
--- NOTE | 2017-10-20 07:58 | PN- Diabetes ---
Assessment/Plan Assessment: Patient awakened today and answered my question. He has had a great deal of variation in his mental status from day to day and time to time. The patient was transferred to a regular floor recently but quickly returned to the telemetry because he became unresponsive. He has received no medication by mouth because of swallowing problems. Family the patient had an LP done yesterday by interventional radiology. At present he is on D5 half-normal saline at 50 cc/h. his serum sodium was still high yesterday at 147. He is also on NovoLog coverage every 4 hours for sugar above 150. Most recent sugars are 181 and 195. . Plan: Patient is to have a swallowing evaluation done today. For now continue the IV fluids and every 4 hour insulin coverage for sugars above 150. If the patient begins to eat we could change his insulin coverage to before meals only and no bedtime coverage. If taking sufficient fluids the IV can be hep-lockedf. Await results of today's labs with regard to his increased sodium. Subjective Subjective: Awake but confused Objective Last 24 Hrs of Vital Signs/I&O Vital Signs Date Time Temp Pulse Resp B/P B/P Pulse O2 O2 Flow FiO2 Mean Ox Delivery Rate 10/20 0542 97.6 106 20 128/78 97 Room Air 10/19 2214 98.1 105 20 108/60 98 Room Air 10/19 1636 98.5 10/19 1614 Nasal 2.0L Cannula 10/19 1600 95 Room Air 10/19 1513 97.7 80 16 158/80 02/ 1512 97.7 80 16 158/80 10/19 1317 Nasal 2.0L Cannula Intake & Output 10/20 1600 10/20 0800 02 0000 Intake Total 600 Output Total 675 400 Balance -75 -400 Intake, IV 600 Number 2 Bowel Movements Output, Urine 675 400 Vital Signs Date Time Temp Pulse Resp B/P B/P Pulse O2 O2 Flow FiO2 Mean Ox Delivery Rate 10/20 0542 97.6 106 20 128/78 97 Room Air 10/194 98.1 105 20 108/60 98 Room Air 02/ 1636 98.5 02/ 1614 Nasal 2.0L Cannula 10/19 1600 95 Room Air 10/19 1513 97.7 80 16 158/80 02/ 1512 97.7 80 16 158/80 02/ 1317 Nasal 2.0L Cannula Intake & Output 10/20 1600 10/20 0800 10/20 0000 Intake Total 600 Output Total 675 400 Balance -75 -400 Intake, IV 600 Number 2 Bowel Movements Output, Urine 675 400 Current Medications: Current Medications Sig/Juma Start time Last Medication Dose Route Stop Time Status Admin Acetaminophen 1,000 MG Q6P PRN 10/15 1730 AC 10/18 N/A 1 UNIT IV 1653 Ammonium Lactate 1 DILLAN BID 10/10 1000 AC 10/19 TOP 2129 Aspirin 81 MG DAILY 10/19 1619 DC PO Atorvastatin Calcium 80 MG 1700 10/14 1700 AC 10/19 PO 1729 Azithromycin 1,200 MG ONCE ONE 10/19 1630 DC 10/19 PO 10/19 1631 1729 Cholecalciferol 1,000 IU DAILY 10/12 1445 AC 10/19 PO 1511 Dextrose/Sodium 1,000 ML Q20H 10/15 1000 AC 10/20 Chloride IV 0641 Escitalopram Oxalate 10 MG DAILY 10/10 1000 AC 10/19 PO 1512 Famotidine 20 MG DAILY 10/14 1101 AC 10/19 PO 1512 Heparin Sodium 25,000 UNIT Q24H 10/19 1630 CAN (Porcine) IV Sodium Chloride 500 ML Heparin Sodium 5,000 UNIT Q8 10/10 0600 AC 10/20 (Porcine) SC 0538 Insulin Aspart 0 Q4 10/13 0200 AC 10/20 SC 0538 Lidocaine 0 .STK-MED ONE 10/19 1214 DC .ROUTE Metoprolol Tartrate 50 MG BID 10/18 2359 AC 10/19 PO 1512 Multivitamins 1 TAB DAILY 10/12 1530 AC 10/19 PO 1512 Ondansetron HCl 4 MG .STK-MED ONE 10/19 1538 DC IM 10/19 1539 Ondansetron HCl 4 MG Q6P PRN 10/11 1330 AC 10/19 IV 1542 Pentoxifylline 400 MG DAILY 10/10 1000 AC 10/19 PO 1513 Tamsulosin HCl 0.4 MG DAILY 10/10 1000 AC 10/19 PO 1513 Trimethoprim/ 1 TAB 10/21 1000 AC Sulfamethoxazole PO 10/22 0959 Valacyclovir HCl 1,000 MG DAILY 10/10 1000 DC 10/19 PO 1511 Findings Pertinent Lab/Lam Results: Laboratory Tests 10/20 10/20 10/19 10/19 10/19 0625 0625 1240 1240 UNK Chemistry Sodium Pending Potassium Pending Chloride Pending Carbon Dioxide Pending Anion Gap Pending BUN Pending Creatinine Pending BUN/Creatinine Ratio Pending Hematology CBC w Diff Pending WBC Pending RBC Pending Hgb Pending Hct Pending MCV Pending MCH Pending MCHC Pending RDW Pending Plt Count Pending MPV Pending Total Abs Lymphocytes Pending Immunology Lymphocyte Subset Cmmnt Pending Absolute CD3 Count Pending % CD3 Mature T-Lymphs Pending % CD4 [place] Pending Absolute CD4 Count Pending T-Help/Suppress Ratio Pending % CD8 Suppressor Pending Absolute CD8 Count Pending Miscellaneous Ref Lab Test Result Pending Ref Lab Test Result Pending Other Body Source CSF WBC (0 - 5 /CUMM) 0 CSF RBC (-0 /CUMM) 0 CSF Comment CSF Glucose (40 - 70 mg/dL) 104 H CSF LDH (U/L) 151 CSF Total Protein (12 - 60 mg/dL) 66 H CSF VDRL Pending Serology Herpes Simplex Source Pending HSV I DNA PCR Pending HSV II DNA PCR Pending HIV 1&2 RNA (PCR) Pending
--- NOTE | 2017-10-20 11:40 | PN- Neurology ---
See Addendum Subjective Subjective: 82 year old HIV presented with a fall due to BILATERAL transient leg weakness. Found to have "105F" and fluctuating fevers in the hospital. CSF clean for infection. Only other source that is positive is UA (flaring). Only neurological deficit at the moment is slurred speech. Review of Systems: stable. Objective Vital Signs and I&Os Vital Signs Date Time Temp Pulse Resp B/P B/P Pulse O2 O2 Flow FiO2 Mean Ox Delivery Rate 10/20 0850 Nasal 2.0L Cannula 10/20 0642 97.6 106 20 128/78 97 Room Air 10/19 2214 98.1 105 20 108/60 98 Room Air 10/19 1636 98.5 10/19 1614 Nasal 2.0L Cannula 10/19 1600 95 Room Air 10/19 1513 97.7 80 16 158/80 10/19 1512 97.7 80 16 158/80 10/19 1317 Nasal 2.0L Cannula Intake & Output 10/20 1600 10/20 0800 10/20 0000 10/19 1600 10/19 0800 10/19 0000 Intake Total 128 822 2833 375 Output Total 675 400 600 750 Balance -75 -400 -320 1000 -375 Intake, IV 600 1000 375 Intake, Oral 280 Number 2 Bowel Movements Output, Urine 675 400 600 750 CSF WBC 0 Glucose 104 Protein 66 Physical Exam: Alert and oriented Current Medications: Current Medications Sig/Juma Start time Last Medication Dose Route Stop Time Status Admin Acetaminophen 1,000 MG Q6P PRN 10/15 1730 AC 10/18 N/A 1 UNIT IV 1653 Ammonium Lactate 1 DILLAN BID 10/10 1000 AC 10/20 TOP 1048 Apixaban 2.5 MG BID 10/20 1000 AC PO Aspirin 81 MG DAILY 10/20 1000 AC PO Aspirin 81 MG DAILY 10/19 1619 DC PO Atorvastatin Calcium 80 MG 1700 10/14 1700 AC 10/19 PO 1729 Azithromycin 1,200 MG ONCE ONE 10/19 1630 DC 10/19 PO 10/19 1631 1729 Cholecalciferol 1,000 IU DAILY 10/12 1445 AC 10/19 PO 1511 Dextrose/Sodium 1,000 ML Q20H 10/15 1000 AC 10/20 Chloride IV 0641 Escitalopram Oxalate 10 MG DAILY 10/10 1000 AC 10/19 PO 1512 Famotidine 20 MG DAILY 10/14 1101 AC 10/19 PO 1512 Heparin Sodium 25,000 UNIT Q24H 10/19 1630 CAN (Porcine) IV Sodium Chloride 500 ML Heparin Sodium 5,000 UNIT Q8 10/10 0600 AC 10/20 (Porcine) SC 0538 Insulin Aspart 0 Q4 10/13 0200 AC 10/20 SC 1046 Lidocaine 0 .STK-MED ONE 10/19 1214 DC .ROUTE Metoprolol Tartrate 50 MG BID 10/18 2359 AC 10/19 PO 1512 Multivitamins 1 TAB DAILY 10/12 1530 AC 10/19 PO 1512 Ondansetron HCl 4 MG .STK-MED ONE 10/19 1538 DC IM 10/19 1539 Ondansetron HCl 4 MG Q6P PRN 10/11 1330 AC 10/19 IV 1542 Pentoxifylline 400 MG DAILY 10/10 1000 AC 10/19 PO 1513 Potassium Chloride 40 MEQ ONCE ONE 10/20 0900 DC PO 10/20 0901 Tamsulosin HCl 0.4 MG DAILY 10/10 1000 AC 10/19 PO 1513 Trimethoprim/ 1 TAB 10/21 1000 AC Sulfamethoxazole PO 10/22 0959 Valacyclovir HCl 1,000 MG DAILY 10/10 1000 DC 10/19 PO 1511 Results Last 24 Hours of Lab Results: Laboratory Tests 10/20 10/20 10/19 0625 0625 1240 Chemistry Sodium (137 - 145 mmol/L) 144 Potassium (3.5 - 5.1 mmol/L) 3.3 L Chloride (98 - 107 mmol/L) 110 H Carbon Dioxide (22 - 30 mmol/L) 20 L Anion Gap (5 - 16) 14 BUN (9 - 20 mg/dL) 26 H Creatinine (0.7 - 1.2 mg/dL) 1.0 Estimated GFR (>60 ml/min) > 60 BUN/Creatinine Ratio (7 - 25 %) 26.0 H Magnesium (1.6 - 2.3 mg/dL) 1.6 Hematology CBC w Diff NO MAN DIFF REQ WBC (4.8 - 10.8 /CUMM) 2.9 L RBC (4.70 - 6.10 /CUMM) 2.96 L Hgb (14.0 - 18.0 G/DL) 8.5 L Hct (42 - 52 %) 25.9 L MCV (80.0 - 94.0 FL) 87.6 MCH (27.0 - 31.0 PG) 28.8 MCHC (33.0 - 37.0 G/DL) 32.9 L RDW (11.5 - 14.5 %) 17.6 H Plt Count (130 - 400 /CUMM) 108 L MPV (7.4 - 10.4 FL) 10.8 H Gran % (42.2 - 75.2 %) 67.9 Lymphocytes % (20.5 - 51.1 %) 25.2 Monocytes % (1.7 - 9.3 %) 5.9 Eosinophils % (0 - 5 %) 0.6 Basophils % (0.0 - 2.0 %) 0.4 Absolute Granulocytes (1.4 - 6.5 /CUMM) 2.0 Absolute Lymphocytes (1.2 - 3.4 /CUMM) 0.7 L Total Abs Lymphocytes Pending Absolute Monocytes (0.10 - 0.60 /CUMM) 0.2 Absolute Eosinophils (0.0 - 0.7 /CUMM) 0 Absolute Basophils (0.0 - 0.2 /CUMM) 0 Immunology Lymphocyte Subset Cmmnt Pending Absolute CD3 Count Pending % CD3 Mature T-Lymphs Pending % CD4 [place] Pending Absolute CD4 Count Pending T-Help/Suppress Ratio Pending % CD8 Suppressor Pending Absolute CD8 Count Pending Other Body Source CSF VDRL Pending Serology HIV 1&2 RNA (PCR) Pending 10/19 1240 Miscellaneous Ref Lab Test Result Pending Ref Lab Test Result Pending Other Body Source CSF Glucose (40 - 70 mg/dL) 104 H CSF LDH (U/L) 151 CSF Total Protein (12 - 60 mg/dL) 66 H Serology Herpes Simplex Source Pending HSV I DNA PCR Pending HSV II DNA PCR Pending Recent Imaging Studies: IMPRESSION: 1. No acute infarcts are demonstrated in the cerebellum or elsewhere. 2. There is a small focus of diffusion hyperintensity without low ADC map signal in the right centrum semiovale consistent with subacute areas of ischemia. 3. There is moderate diffuse volume loss and there are relatively extensive chronic microvascular ischemic changes. Assessment/Plan Assessment: 82 year old UTI++, urospesis, small infarct. No CSF infection. Very high temps continue, no other source of infection. Small infarct does not explain this picture, at best the dysarthria. He by definition has a Encephalopathy and the number one reason for this in this age group is a UTI. Would strongly sugget to treat empiricially as MRI brain does not suggest of any other process that would cause central fever. Plan: 1. Treat infection; 2. C/w current cardiovascular regimen of meds.
--- NOTE | 2017-10-20 12:02 | PN- Infect Dx ---
Subjective Subjective: Afebrile without complaints Objective Last 24 Hrs of Vital Signs/I&O Vital Signs Date Time Temp Pulse Resp B/P B/P Pulse O2 O2 Flow FiO2 Mean Ox Delivery Rate 10/20 0850 Nasal 2.0L Cannula 10/20 0642 97.6 106 20 128/78 97 Room Air 10/19 2214 98.1 105 20 108/60 98 Room Air 10/19 1636 98.5 10/19 1614 Nasal 2.0L Cannula 10/19 1600 95 Room Air 10/19 1513 97.7 80 16 158/80 10/19 1512 97.7 80 16 158/80 10/19 1317 Nasal 2.0L Cannula Intake & Output 10/20 1600 10/20 0800 10/20 0000 Intake Total 600 Output Total 675 400 Balance -75 -400 Intake, IV 600 Number 2 Bowel Movements Output, Urine 675 400 Physical Exam Other Physical Findings: He is more lethargic today but in no acute distress Skin reveals no rash Lungs are clear Heart irregular rhythm with no murmur Abdomen is soft, nontender with positive bowel sounds Extremities no cyanosis, clubbing or edema Neuro without focality Eduardo catheter remains in place Results Last 24 Hours of Lab Results: Laboratory Tests 10/20 10/20 10/19 0625 0625 1240 Chemistry Sodium (137 - 145 mmol/L) 144 Potassium (3.5 - 5.1 mmol/L) 3.3 L Chloride (98 - 107 mmol/L) 110 H Carbon Dioxide (22 - 30 mmol/L) 20 L Anion Gap (5 - 16) 14 BUN (9 - 20 mg/dL) 26 H Creatinine (0.7 - 1.2 mg/dL) 1.0 Estimated GFR (>60 ml/min) > 60 BUN/Creatinine Ratio (7 - 25 %) 26.0 H Magnesium (1.6 - 2.3 mg/dL) 1.6 Hematology CBC w Diff NO MAN DIFF REQ WBC (4.8 - 10.8 /CUMM) 2.9 L RBC (4.70 - 6.10 /CUMM) 2.96 L Hgb (14.0 - 18.0 G/DL) 8.5 L Hct (42 - 52 %) 25.9 L MCV (80.0 - 94.0 FL) 87.6 MCH (27.0 - 31.0 PG) 28.8 MCHC (33.0 - 37.0 G/DL) 32.9 L RDW (11.5 - 14.5 %) 17.6 H Plt Count (130 - 400 /CUMM) 108 L MPV (7.4 - 10.4 FL) 10.8 H Gran % (42.2 - 75.2 %) 67.9 Lymphocytes % (20.5 - 51.1 %) 25.2 Monocytes % (1.7 - 9.3 %) 5.9 Eosinophils % (0 - 5 %) 0.6 Basophils % (0.0 - 2.0 %) 0.4 Absolute Granulocytes (1.4 - 6.5 /CUMM) 2.0 Absolute Lymphocytes (1.2 - 3.4 /CUMM) 0.7 L Total Abs Lymphocytes Pending Absolute Monocytes (0.10 - 0.60 /CUMM) 0.2 Absolute Eosinophils (0.0 - 0.7 /CUMM) 0 Absolute Basophils (0.0 - 0.2 /CUMM) 0 Immunology Lymphocyte Subset Cmmnt Pending Absolute CD3 Count Pending % CD3 Mature T-Lymphs Pending % CD4 [place] Pending Absolute CD4 Count Pending T-Help/Suppress Ratio Pending % CD8 Suppressor Pending Absolute CD8 Count Pending Other Body Source CSF VDRL Pending Serology HIV 1&2 RNA (PCR) Pending 10/19 1240 Miscellaneous Ref Lab Test Result Pending Ref Lab Test Result Pending Other Body Source CSF Glucose (40 - 70 mg/dL) 104 H CSF LDH (U/L) 151 CSF Total Protein (12 - 60 mg/dL) 66 H Serology Herpes Simplex Source Pending HSV I DNA PCR Pending HSV II DNA PCR Pending Serum cryptococcal antigen and toxo titers negative Last 24 Hours of Lam Results: CSF culture October 19 negative CSF AFB smear October 19 negative Blood cultures 2 October 16 negative Recent Imaging Studies: CTA of the chest October 19 no pulmonary embolism; patchy parenchymal opacity in the left upper lobe Assessment/Plan Impression: Stable, though continues to have intermittent lethargy, which remain unexplained , with the recent CSF negative for any evidence of infection. He has had no fevers for the past 36 hours, with recent cultures, chest x-ray and CT scan of the abdomen and pelvis negative for any obvious focus of infection. His recent CTA of the chest does reveal a subtle left upper lobe density, but his respiratory status is stable and am not convinced this can explain his recent fevers. His previous CSF did reveal 2 oligoclonal bands, of unclear significance, and would appreciate Neuro follow-up on this. His recent fevers could be noninfectious in etiology, for example drug fever or lymphoma, with retroperitoneal, left inguinal and iliac lymphadenopathy noted on his CT scans. Metastatic prostate cancer is also a concern but, apparently, the cystoscopy/ possible prostate biopsy, was canceled. Suggestion: 1. Would review CT scan with IR to identify any lymph nodes that could be biopsied 2. Follow-up CSF results, including cytology, RPR, PCR for HSV and JORGE virus, and AFB and fungal cultures 3. Neurology follow-up regarding the positive oligoclonal bands on his previous CSF 4. Remove Eduardo catheter 5. Continue antiretroviral and PJP/MARCUS prophylaxis meds
[2017-10-20 13:56] VITALS: BP 126/66
--- NOTE | 2017-10-20 14:52 | PN- Urology ---
Surgical Brief Attending Note Brief Attending Note: Pt today less alert. lethargic c/w prior sepsis. vss afebrile today. cbc wnl, creat. at 1.0. Pt with clear yellow output from prabhakar despite anti-coagulation; Prostate biopsy NOT consented to by pt/daughter. Pt's daughter requesting second opinion for ID/Neurology and will therefore necessitate transfer:with which I am in favor, if possible. MUST keep prabhakar for one more week to facilitate healing post -turp more completely otherwise, gross hematuria will likely return. Would agree with prophylacitc abx while prabhakar in place.
--- NOTE | 2017-10-20 16:22 | Event Note ---
Event Note Event Note: I spoke with Dr. Wing Victoria over phone to inform him that the by mouth antibiotic ciprofloxacin he had prescribed could not be given to the patient as he was refusing any oral medications. Dr. Victoria suggested switching it to IV ceftriaxone and plan to switch to PO ciprofloxacin when he is able to. Of note, urinalysis has been re-sent today, as his urine cultures persistently have come negative so far even when he was having 102 degrees Fahrenheit fevers.
--- NOTE | 2017-10-20 18:53 | PN- Cardiology ---
Subjective Subjective: * Patient is communicating today and denies any significant chest pain or shortness of breath. He has noted some palpitations. * atrial fibrillation Objective Vital Signs and I&Os Vital Signs Date Time Temp Pulse Resp B/P B/P Pulse O2 O2 Flow FiO2 Mean Ox Delivery Rate 10/20 1356 97.5 51 20 126/66 96 10/20 0850 Nasal 2.0L Cannula 10/20 0642 97.6 106 20 128/78 97 Room Air 10/19 2214 98.1 105 20 108/60 98 Room Air Intake & Output 10/20 1600 10/20 0800 10/20 0000 10/19 1600 10/19 0810/19 0000 Intake Total 600 545 672 6167 375 Output Total 200 675 400 600 750 Balance 400 -75 -400 -320 1000 -375 Intake, IV 167 342 0683 375 Intake, Oral 280 Number 2 Bowel Movements Output, Urine 200 675 400 600 750 Physical Exam: General: WD/overweight male in no obvious distress; unresponsive to verbal stimuli HEENT: NC/AT, PERRL, EOMI Neck: no JVD, no carotid bruit Heart: irregularly irregular Lungs: clear bilaterally anteriorly ABdomen: soft, NT, +ve bowel sounds Extremities: no edema Assessment/Plan Assessment/Plan * Doing better on Metoprolol 50mg BID. * Continue Eliquis. Continue telemetry? Yes
[2017-10-20 22:32] VITALS: BP 122/58
--- NOTE | 2017-10-21 06:52 | PN- Housestaff ---
Emiliano BRAVO,Ana Luisa 10/21/17 0651: Subjective Follow-up For: HIV, altered mental status, stroke, fever of unknown origin Complaints: no complaints Tele-Events Since Last Visit: Normal sinus rhythm heart rate 90-100 Subjective: Patient was seen and examined at bedside. Overnight patient tried to pull lines and was put on [place]. No complaints. Patient is awake, alert, oriented 1. He is confusedbut able to follow commands. He refuses to eat. He denies chest pain, chest pressure, nausea, vomiting, abdominal pain. Review of Systems Constitutional: Reports: no symptoms. Cardiovascular: Reports: no symptoms. Respiratory: Reports: no symptoms. Gastrointestinal: Reports: no symptoms. Genitourinary: Reports: no symptoms. Musculoskeletal: Reports: no symptoms. Objective Last 24 Hrs of Vital Signs/I&O Vital Signs Date Time Temp Pulse Resp B/P B/P Pulse O2 O2 Flow FiO2 Mean Ox Delivery Rate 10/21 1447 97.6 77 20 120/70 97 10/21 0708 97.6 111 20 150/78 96 Nasal Cannula 10/21 0000 Room Air 10/20 2352 117 10/20 2232 97.6 111 20 122/58 95 Nasal Cannula 10/20 2100 119 10/20 2100 111 10/20 1600 Room Air Intake & Output 10/21 1600 10/21 0800 10/21 0000 Intake Total 450 600 Output Total 450 500 450 Balance -450 -50 150 Intake, IV 450 600 Intake, Oral 0 Number 0 Bowel Movements Output, Urine 450 500 450 Physical Exam General Appearance: Alert, Oriented X3, Cooperative, No Acute Distress Cardiovascular: Regular Rate, Normal S1, Normal S2, No Murmurs Lungs: Clear to Auscultation Abdomen: Normal Bowel Sounds, Soft, No Tenderness, No Hepatospenomegaly Neurological: Normal Speech, Strength at 5/5 X4 Ext, Normal Tone, Sensation Intact Extremities: No Cyanosis, No Edema, Normal Pulses Vascular: Normal Pulses, Pulses Symmetrical Current Medications: Current Medications Sig/Juma Start time Last Medication Dose Route Stop Time Status Admin Acetaminophen 1,000 MG Q6P PRN 10/15 1730 AC 10/18 N/A 1 UNIT IV 1653 Ammonium Lactate 1 DILLAN BID 10/10 1000 AC 10/21 TOP 1228 Apixaban 2.5 MG BID 10/20 1000 AC PO Aspirin 81 MG DAILY 10/20 1000 AC PO Atorvastatin Calcium 80 MG 1700 10/14 1700 AC 10/19 PO 1729 Ceftriaxone Sodium 1,000 MG DAILY 10/20 1630 AC 10/21 IV 1152 Cholecalciferol 1,000 IU DAILY 10/12 1445 AC 10/19 PO 1511 Ciprofloxacin 500 MG BID 10/20 2200 CAN PO 10/24 2159 Dextrose/Sodium 1,000 ML Q20H 10/15 1000 DC 10/20 Chloride IV 2052 Escitalopram Oxalate 10 MG DAILY 10/10 1000 AC 10/19 PO 1512 Famotidine 20 MG DAILY 10/14 1101 AC 10/19 PO 1512 Heparin Sodium 5,000 UNIT Q8 10/10 0600 AC 10/21 (Porcine) SC 1442 Insulin Aspart 0 Q4 10/13 0200 AC 10/21 SC 0630 Metoprolol Tartrate 50 MG BID 10/18 2359 AC 10/19 PO 1512 Multivitamins 1 TAB DAILY 10/12 1530 AC 10/19 PO 1512 Ondansetron HCl 4 MG Q6P PRN 10/11 1330 AC 10/21 IV 1443 Pentoxifylline 400 MG DAILY 10/10 1000 AC 10/19 PO 1513 Potassium Chloride 20 MEQ 75 MLS/HR 10/22 1131 CAN IV Potassium Chloride 20 MEQ Q13H 10/21 1200 AC 10/21 Dextrose/Sodium 1,000 ML IV 1435 Chloride Potassium Chloride 75 MEQ DAILY 10/21 1131 DC IV Tamsulosin HCl 0.4 MG DAILY 10/10 1000 AC 10/19 PO 1513 Trimethoprim/ 1 TAB 10/21 1000 AC Sulfamethoxazole PO 10/22 0959 Last 24 Hrs of Lab/Lam Results Last 24 Hrs of Labs/Mics: Laboratory Tests 10/21/17 0644: CBC w Diff NO MAN DIFF REQ, RBC 3.09 L, MCV 86.3, MCH 29.0, MCHC 33.6, RDW 17.1 H, MPV 11.0 H, Gran % 67.8, Lymphocytes % 25.6, Monocytes % 6.1, Eosinophils % 0.4, Basophils % 0.1, Absolute Granulocytes 2.7, Absolute Lymphocytes 1.0 L, Absolute Monocytes 0.2, Absolute Eosinophils 0, Absolute Basophils 0 10/21/17 0638: Anion Gap 10, Estimated GFR > 60, BUN/Creatinine Ratio 21.1 10/20/17 1530: Urine Color YEL, Urine Clarity HAZY H, Urine pH 6.0, Ur Specific [place] 1.025, Urine Protein 30 H, Urine Ketones NEG, Urine Nitrite NEG, Urine Bilirubin NEG, Urine Urobilinogen 0.2, Ur Leukocyte Esterase LARGE H, Ur Microscopic SEDIMENT EXAMINED, Urine RBC 3-5, Urine WBC 50-75 H, Ur Epithelial Cells RARE, Urine Bacteria FEW H, Urine Mucus RARE, Micro UA Comment MORE INFO: H, Urine Hemoglobin LARGE H, Urine Glucose NEG Assessment/Plan Assessment: 82-year-old male with past medical history significant for coronary artery disease status post HI, stent placement on dual antiplatelet regimen, HIV with CD4 count 22 on prophylactic antibiotics Bactrim, azithromycin, valacyclovir, Prezcobix, dolutegravir, depression, hypertension, type 2 diabetes mellitus, GERD, BPH, recently discharged for fever of unknown origin, retroperitoneal lymphadenopathy questionable lymphoma presenting to the emergency room for left hip pain status post fall x2. Problem List: #Altered mental status Patient was transferred to [facility] for evaluation of possible stroke/sudden onset of altered mental status. CT Head showed possible evolving infarct however MRI was negative. Neurology consulted did not warrant TPA treatment as no neurological deficit and unknown time of onset. Patient was transferred to [facility] back. A rapid response was called on him due to seizure-like activity. CAT scan of the head was negative. Another rapid response was called on him because of tachycardia with a heart rate of 180s. Metoprolol and Cardizem was given. He was transferred to telemetry for monitoring. He is in atrial fibrillation with a controlled heart rate of 80. He was seen by director of instruction who suggested IV heparin. PE was ruled out. Patient was started on Eliquis 2.5 mg twice a day today in view of atrial fibrillation. Patient was seen by urology who suggested to stop the continuous bladder irrigation in view of clear urine and continue Eduardo for 1 more week. Urologist wanted to start him on antibiotics empirically. Patient started on IV ceftriaxone since he refuses by mouth meds. Patient afebrile for more than 72 hours. Patient is confused and has altered mental status. We will get a psychiatry evaluation today. #Acute renal failure, likely from contrast use-resolved -Avoid nephrotoxins. -Avoid hydrochlorothiazide #fall Hip x-ray, pelvic x-ray, lumbar spine x-ray, head/ cervical spine CT negative for acute fractures VitD /B12 levels low. On vitamin D and calcium supplementation. -Continue vit D and multivtiamin supplmentation -PT recommends STR -cont pain control #FUO Patient afebrile for more than 48 hours. No evidence of any source of infection. Urine culture blood culture negative thus far. -continue azithromycin and Bactrim for prophylaxis. -continue HIV medications - Tylenol 650mg once for his spiked fever this morning. #HIV -Last CD4 count 82 in June 2017. We will repeat a CD4 count and viral load -continue prescobix and dolutragravir daily. -continue Bactrim, azithromycin, # DM His blood sugars 150-138. We will continue NovoLog coverage every 4 hours. #Coronary artery disease status post stent placement -continue aspirin, statin, Plavix #Peripheral vascular disease -continue pentoxifylline 400 mg daily #Depression -continue Lexapro 10 mg daily #Hypertension -continue metoprolol. -hold hydrochlorothiazide #GERD -continue omeprazole #BPH s/p TURP -continue tamsulosin #Insomnia -continue zolpidem as needed for sleep #FULL CODE #DVT prophylaxis subcutaneous heparin Code-full code PLAN follow-psychiatry, neurology, urology. Patient is refusing all his meds. We will discontinue D5 half-normal saline and start him on D5 half-normal saline with 20 mEq of potassium. His daughter Doris is involved in the care. Problem List: 1. Confusion 2. Altered mental status 3. Stroke 4. Diabetes Pain Ratin Pain Location: none Pain Goal: Remain pain free Pain Plan: tylenol Tomorrow's Labs & Rationales: cbc,bep Levy BRAVO,Kendal 10/21/17 1432: Attending MD Review Statement Attending Statement Attending MD Statement: examined this patient, discuss w/resident/PA/SWIMMING POOL SERVICEPERSON, agreed w/resident/PA/SWIMMING POOL SERVICEPERSON, reviewed EMR data (avail), discussed with nursing, discussed with case mgmt, amended to note Attending Assessment/Plan: Patient seen and examined. Although he is awake this morning unable to follow simple commands. He is confused. He required a [place] overnight. Patient is refusing to eat, he is pocketing food in his mouth. his son-in-law is present at the bedside. Son-in-law reports that patient used [facility] however over the few months prior to presentation he was getting more forgetful and occasionally confused. He reported occasions where patient would wander outside not properly closed. He however has never been as confused as he has been here in the hospital. Workup for the patient's confusion during this hospitalization has been exhausted. Blood and urine cultures have been negative and not suggestive of any systemic infectious process. Lumbar puncture was also done and results of also been negative for any evidence of bacterial, viral or opportunistic infection. His fevers may be related to his HIV infection. Patient is receiving HAART therapy however he has been refusing oral intake on and off. Patient's daughter was concerned that patient may have an untreated urinary tract infection. Urine cultures have been negative 2 during this hospitalization. Despite no antibiotic therapy patient has been afebrile for 48 hours. She however remains convinced that a urinary tract infection may be contributing to his confusion. Patient was seen by the neurology service and urology service who recommended treating patient empirically for his prior abnormal UA. Patient was started on oral ciprofloxacin by Dr. Victoria. Since yesterday patient has been refusing to take anything orally. In view of this Dr. Victoria switch the patient to IV Rocephin which has been receiving since yesterday. The patient remains afebrile as he was prior to initiation of antibiotic therapy. He also remains confused. It is possible that patient does have underlying dementia with acute delirium brought about by his fevers and hospitalization. Recommendations: -Patient currently rate controlled. Continue metoprolol. He has been started on anticoagulant therapy with Eliquis. -Recommend supportive care. Recommend evaluation by the psychiatry service. Begin discharge planning to retirement facility. May require a behavioral unit due to his waxing and waning confusion. -Antibiotic therapy is being administered as directed by the urology service. -His hematuria has improved. Urology service currently recommending continuation of Eduardo catheter to prevent tamponade effect from blood clots is present. Recommend discontinuation as soon as possible to prevent development of bacterial infection. -Supplement potassium level. -Endocrinology follow-up appreciated. Follow-up recommendations. continuation of Eduardo catheter to prevent tamponade effect from blood clots is present. Recommend discontinuation as soon as possible to prevent development of bacterial infection. -Supplement potassium level. -Endocrinology follow-up appreciated. Follow-up recommendations.
[2017-10-21 07:08] VITALS: BP 150/78
--- NOTE | 2017-10-21 08:01 | PN- Diabetes ---
Assessment/Plan Assessment: Patient awakened today and answered my question. He remains confused.He has had a great deal of variation in his mental status from day to day and time to time. The patient was transferred to a regular floor recently but quickly returned to the telemetry because he became unresponsive. He Past the swallowing eval and is taking small amounts by mouth. Family the patient had an LP done yesterday by interventional radiology. It did not reveal any infection. At present he is on D5 half-normal saline at 75 cc/h. His serum sodium is now normal at 144.. He is also on NovoLog coverage every 4 hours for sugar above 150. Most recent sugars are 158 and 209. . Plan: The patient's blood sugars are in reasonable range. The patient's serum sodium is now normal. His encephalopathy could have been doing to a hyperosmolar state in view of the increased serum sodium. He has hypokalemia. Suggest switch IV to D5 half-normal saline +20 mEq KCl at 75 cc/h. Continue NovoLog coverage every 4 hours. When the patient is eating sufficiently we can change the NovoLog coverage to before meals and Hep-Lock his IV. Subjective Subjective: Patient is confused Objective Last 24 Hrs of Vital Signs/I&O Vital Signs Date Time Temp Pulse Resp B/P B/P Pulse O2 O2 Flow FiO2 Mean Ox Delivery Rate 10/21 707 97.6 111 20 150/78 96 Nasal Cannula 10/21 0000 Room Air 10/20 2351 117 10/20 2231 97.6 111 20 122/58 95 Nasal Cannula 10/20 2099 119 10/20 2100 111 10/20 1600 Room Air 10/20 1356 97.5 51 20 126/66 96 10/20 0850 Nasal 2.0L Cannula Intake & Output 10/21 0800 10/21 0000 10/20 1600 Intake Total 450 600 600 Output Total 500 450 200 Balance -50 150 400 Intake, IV 450 600 600 Intake, Oral 0 Number 0 Bowel Movements Output, Urine 500 450 200 Vital Signs Date Time Temp Pulse Resp B/P B/P Pulse O2 O2 Flow FiO2 Mean Ox Delivery Rate 10/21 0608 97.6 111 20 150/78 96 Nasal Cannula 10/21 0000 Room Air 10/20 2352 117 10/202 97.6 111 20 122/58 95 Nasal Cannula 10/20 2100 119 10/20 2100 111 10/20 1600 Room Air 10/20 1356 97.5 51 20 126/66 96 10/20 0850 Nasal 2.0L Cannula Intake & Output 10/21 0800 10/21 0000 10/20 1600 Intake Total 450 600 600 Output Total 500 450 200 Balance -50 150 400 Intake, IV 450 600 600 Intake, Oral 0 Number 0 Bowel Movements Output, Urine 500 450 200 Physical Exam General Appearance: alert, awake, comfortable Head: normal appearance Neck: normal inspection Respiratory: normal breath sounds Cardiovascular: regular rate/rhythm Abdomen: normal bowel sounds Current Medications: Current Medications Sig/Juma Start time Last Medication Dose Route Stop Time Status Admin Acetaminophen 1,000 MG Q6P PRN 10/15 1730 AC 10/18 N/A 1 UNIT IV 1653 Ammonium Lactate 1 DILLAN BID 10/10 1000 AC 10/20 TOP 2054 Apixaban 2.5 MG BID 10/20 1000 AC PO Aspirin 81 MG DAILY 10/20 1000 AC PO Atorvastatin Calcium 80 MG 1700 10/14 1700 AC 10/19 PO 1729 Ceftriaxone Sodium 1,000 MG DAILY 10/20 1630 AC 10/20 IV 1828 Cholecalciferol 1,000 IU DAILY 10/12 1445 AC 10/19 PO 1511 Ciprofloxacin 500 MG BID 10/20 2200 CAN PO 10/24 2159 Dextrose/Sodium 1,000 ML Q20H 10/15 1000 AC 10/20 Chloride IV 2052 Escitalopram Oxalate 10 MG DAILY 10/10 1000 AC 10/19 PO 1512 Famotidine 20 MG DAILY 10/14 1101 AC 10/19 PO 1512 Heparin Sodium 5,000 UNIT Q8 10/10 0600 AC 10/21 (Porcine) SC 0630 Insulin Aspart 0 Q4 10/13 0200 AC 10/21 SC 0630 Magnesium Oxide 400 MG 1430 10/20 1430 DC PO 10/20 1431 Metoprolol Tartrate 50 MG BID 10/18 2359 AC 10/19 PO 1512 Multivitamins 1 TAB DAILY 10/12 1530 AC 10/19 PO 1512 Ondansetron HCl 4 MG Q6P PRN 10/11 1330 AC 10/19 IV 1542 Pentoxifylline 400 MG DAILY 10/10 1000 AC 10/19 PO 1513 Potassium Chloride 40 MEQ .STK-MED ONE 10/20 1043 DC PO 10/20 1044 Potassium Chloride 40 MEQ ONCE ONE 10/20 0900 DC PO 02/06 0901 Tamsulosin HCl 0.4 MG DAILY 10/10 1000 AC 10/19 PO 1513 Trimethoprim/ 1 TAB 10/21 1000 AC Sulfamethoxazole PO 10/22 0959 Findings Pertinent Lab/Lam Results: Laboratory Tests 10/21 10/21 10/20 0644 0638 1530 Chemistry Sodium Pending Potassium Pending Chloride Pending Carbon Dioxide Pending Anion Gap Pending BUN Pending Creatinine Pending BUN/Creatinine Ratio Pending Hematology CBC w Diff Pending WBC Pending RBC Pending Hgb Pending Hct Pending MCV Pending MCH Pending MCHC Pending RDW Pending Plt Count Pending MPV Pending Urines Urine Color (YEL,AMB,STR) YEL Urine Clarity (CLEAR) HAZY H Urine pH (5.0 - 8.0) 6.0 Ur Specific [place] (1.001 - 1.035) 1.025 Urine Protein (NEG,<30 MG/DL) 30 H Urine Ketones (NEG) NEG Urine Nitrite (NEG) NEG Urine Bilirubin (NEG) NEG Urine Urobilinogen (0.1 - 1.0 EU/dl) 0.2 Ur Leukocyte Esterase (NEG) LARGE H Ur Microscopic SEDIMENT EXAMINED Urine RBC (0 - 5 /HPF) 3-5 Urine WBC (0 - 2 /HPF) 50-75 H Ur Epithelial Cells (NONE,FEW) RARE Urine Bacteria (NEG/NONE) FEW H Urine Mucus (FEW,NONE) RARE Micro UA Comment MORE INFO: H Urine Hemoglobin (NEG) LARGE H Urine Glucose (N MG/DL) NEG
[2017-10-21 08:08] LABS: ABSOLUTE BASOPHIL COUNT 0 /CUMM (0.0-0.2); ABSOLUTE EOSINOPHIL COUNT 0 /CUMM (0.0-0.7); ABSOLUTE GRANULOCYTE CT 2.7 /CUMM (1.4-6.5); ABSOLUTE MONOCYTE COUNT 0.2 /CUMM (0.10-0.60); BASOPHIL % 0.1 % (0.0-2.0); EOSINOPHIL % 0.4 % (0-5); GRANULOCYTE % 67.8 % (42.2-75.2); HEMATOCRIT 26.7 % (42-52); MEAN CORPUSCULAR HGB CONC 33.6 G/DL (33.0-37.0); MEAN CORPUSCULAR VOLUME 86.3 FL (80.0-94.0); RBC DISTRIBUTION WIDTH 17.1 % (11.5-14.5); RED BLOOD CELL CT 3.09 /CUMM (4.70-6.10); WHITE BLOOD CELL COUNT 3.9 /CUMM (4.8-10.8)
[2017-10-21 09:12] LABS: PLATELET COUNT 135 /CUMM (130-400)
[2017-10-21 14:47] VITALS: BP 120/70
--- NOTE | 2017-10-21 21:08 | PN- Cardiology ---
Subjective Subjective: * Patient is communicative but a bit confused. * Atrial fibrillation with controlled heart rate. * potassium is 3.2 Objective Vital Signs and I&Os Vital Signs Date Time Temp Pulse Resp B/P B/P Pulse O2 O2 Flow FiO2 Mean Ox Delivery Rate 10/21 1447 97.6 77 20 120/70 97 10/21 0800 94 Room Air 10/21 0708 97.6 111 20 150/78 96 Nasal Cannula 10/21 0000 Room Air 10/20 2352 117 10/20 2232 97.6 111 20 122/58 95 Nasal Cannula Intake & Output 10/21 1600 10/21 0800 10/21 0000 10/20 1600 10/20 0800 10/20 0000 Intake Total 480 450 600 600 600 Output Total 700 500 450 200 675 400 Balance -220 -50 150 400 -75 -400 Intake, IV 450 600 600 600 Intake, Oral 480 0 Number 0 2 Bowel Movements Output, Urine 700 500 450 200 675 400 Physical Exam: General: WD/overweight male in no obvious distress; unresponsive to verbal stimuli HEENT: NC/AT, PERRL, EOMI Neck: no JVD, no carotid bruit Heart: irregularly irregular Lungs: clear bilaterally anteriorly ABdomen: soft, NT, +ve bowel sounds Extremities: no edema Assessment/Plan Assessment/Plan * Doing better on Metoprolol 50mg BID. * Continue Eliquis. Continue telemetry? Yes
[2017-10-21 22:08] VITALS: BP 120/72
--- NOTE | 2017-10-21 23:36 | Event Note ---
Event Note Event Note: converted to NSR at 11:30am
--- NOTE | 2017-10-22 06:56 | PN- Housestaff ---
Emiliano BRAVO,Ana Luisa 10/22/17 0655: Subjective Follow-up For: HIV, altered mental status, stroke Complaints: no complaints Tele-Events Since Last Visit: Normal sinus rhythm heart rate 80 Subjective: Patient was seen and examined at bedside. No overnight events. Patient is lying in his bed comfortably saturating at room air. He is alert awake oriented He denies chest pain, chest pressure, nausea, vomiting, palpitation, shortness of breath. Review of Systems Constitutional: Reports: no symptoms. Cardiovascular: Reports: no symptoms. Respiratory: Reports: no symptoms. Gastrointestinal: Reports: no symptoms. Genitourinary: Reports: no symptoms. Musculoskeletal: Reports: no symptoms. Objective Last 24 Hrs of Vital Signs/I&O Vital Signs Date Time Temp Pulse Resp B/P B/P Pulse O2 O2 Flow FiO2 Mean Ox Delivery Rate 10/22 0658 98.7 71 20 140/80 93 Room Air 10/21 2208 97.6 73 20 120/72 96 Room Air 10/21 1447 97.6 77 20 120/70 97 Intake & Output 10/22 1600 10/22 0800 10/22 0000 Intake Total 600 600 Output Total 300 250 Balance 300 350 Intake, IV 600 600 Intake, Oral 0 0 Number 1 0 Bowel Movements Output, Urine 300 250 Physical Exam General Appearance: Alert, Cooperative, No Acute Distress, confused and oriented 1 Skin: No Rashes, No Breakdown HEENT: PERRLA Cardiovascular: Normal S1, Normal S2, No Murmurs Lungs: Clear to Auscultation Abdomen: Soft, No Tenderness, No Hepatospenomegaly Neurological: Normal Speech, Strength at 5/5 X4 Ext, Normal Tone, Sensation Intact Extremities: No Edema Current Medications: Current Medications Sig/Juma Start time Last Medication Dose Route Stop Time Status Admin Acetaminophen 1,000 MG Q6P PRN 10/15 1730 AC 10/18 N/A 1 UNIT IV 1653 Ammonium Lactate 1 DILLAN BID 10/10 1000 AC 10/21 TOP 2156 Apixaban 2.5 MG BID 10/20 1000 AC PO Aspirin 81 MG DAILY 10/20 1000 AC PO Atorvastatin Calcium 80 MG 1700 10/14 1700 AC 10/19 PO 1729 Ceftriaxone Sodium 1,000 MG DAILY 10/20 1630 AC 10/21 IV 1152 Cholecalciferol 1,000 IU DAILY 10/12 1445 AC 10/19 PO 1511 Escitalopram Oxalate 10 MG DAILY 10/10 1000 AC 10/19 PO 1512 Famotidine 20 MG DAILY 10/14 1101 AC 10/19 PO 1512 Heparin Sodium 5,000 UNIT Q8 10/10 0600 AC 10/22 (Porcine) SC 0520 Insulin Aspart 0 Q4 10/13 0200 AC 10/22 SC 0522 Metoprolol Tartrate 50 MG BID 10/18 2359 AC 10/19 PO 1512 Multivitamins 1 TAB DAILY 10/12 1530 AC 10/19 PO 1512 Ondansetron HCl 4 MG .STK-MED ONE 10/21 1433 DC IM 10/21 1434 Ondansetron HCl 4 MG Q6P PRN 10/11 1330 AC 10/21 IV 1443 Pentoxifylline 400 MG DAILY 10/10 1000 AC 10/19 PO 1513 Potassium Chloride 20 MEQ 75 MLS/HR 10/22 1131 CAN IV Potassium Chloride 20 MEQ Q13H 10/21 1200 AC 10/22 Dextrose/Sodium 1,000 ML IV 0356 Chloride Tamsulosin HCl 0.4 MG DAILY 10/10 1000 AC 10/19 PO 1513 Trimethoprim/ 1 TAB 10/21 1000 DC 10/21 Sulfamethoxazole PO 10/22 0959 1809 Last 24 Hrs of Lab/Lam Results Last 24 Hrs of Labs/Mics: Laboratory Tests 10/22/17 0650: Anion Gap 10, Estimated GFR > 60, BUN/Creatinine Ratio 20.0, CBC w Diff NO MAN DIFF REQ, RBC 2.62 L, MCV 86.4, MCH 28.6, MCHC 33.1, RDW 17.2 H, MPV 10.4, Gran % 74.2, Lymphocytes % 18.9 L, Monocytes % 6.1, Eosinophils % 0.6, Basophils % 0.2, Absolute Granulocytes 2.7, Absolute Lymphocytes 0.7 L, Absolute Monocytes 0.2, Absolute Eosinophils 0, Absolute Basophils 0 Assessment/Plan Assessment: 82-year-old male with past medical history significant for coronary artery disease status post OR, stent placement on dual antiplatelet regimen, HIV with CD4 count 22 on prophylactic antibiotics Bactrim, azithromycin, valacyclovir, Prezcobix, dolutegravir, depression, hypertension, type 2 diabetes mellitus, GERD, BPH, recently discharged for fever of unknown origin, retroperitoneal lymphadenopathy questionable lymphoma presenting to the emergency room for left hip pain status post fall x2. Problem List: #Altered mental status Patient was transferred to tele for evaluation of possible stroke/sudden onset of altered mental status. CT Head showed possible evolving infarct however MRI was negative. Neurology consulted did not warrant TPA treatment as no neurological deficit and unknown time of onset. Patient was transferred to [facility]. A rapid response was called on him due to seizure-like activity. CAT scan of the head was negative. Another rapid response was called on him because of tachycardia with a heart rate of 180s. Metoprolol and Cardizem was given. He was transferred to telemetry for monitoring. He is in atrial fibrillation with a controlled heart rate of 80. He was seen by best worker who suggested IV heparin. PE was ruled out. Patient was started on Eliquis 2.5 mg twice a day in view of atrial fibrillation. Patient was seen by urology who suggested to stop the continuous bladder irrigation in view of clear urine and continue Eduardo for 1 more week. Urologist wanted to start him on antibiotics empirically. Patient wasstarted on IV ceftriaxone since he refuses by mouth meds. Patient afebrile. Patient is confused and has altered mental status. We will get a psychiatry evaluation today. #Acute renal failure, likely from contrast use-resolved -Avoid nephrotoxins. -Avoid hydrochlorothiazide #fall Hip x-ray, pelvic x-ray, lumbar spine x-ray, head/ cervical spine CT negative for acute fractures VitD /B12 levels low. On vitamin D and calcium supplementation. -Continue vit D and multivtiamin supplmentation -PT recommends STR -cont pain control #FUO Patient afebrile for more than 48 hours. No evidence of any source of infection. Urine culture blood culture negative thus far. -continue azithromycin and Bactrim for prophylaxis. -continue HIV medications - Tylenol 650mg once for his spiked fever this morning. #HIV -Last CD4 count 82 in June 2017. We will repeat a CD4 count and viral load -continue prescobix and dolutragravir daily. -continue Bactrim, azithromycin, # DM His blood sugars 150-138. We will continue NovoLog coverage every 4 hours. #Coronary artery disease status post stent placement -continue aspirin, statin, Plavix #Peripheral vascular disease -continue pentoxifylline 400 mg daily #Depression -continue Lexapro 10 mg daily #Hypertension -continue metoprolol. -hold hydrochlorothiazide #GERD -continue omeprazole #BPH s/p TURP -continue tamsulosin #Insomnia -continue zolpidem as needed for sleep #FULL CODE #DVT prophylaxis subcutaneous heparin Code-full code PLAN follow-psychiatry, neurology, urology, cardiology, infectious disease. His daughter Doris is involved in the care. Problem List: 1. Stroke 2. Diabetes 3. Fall Pain Ratin Pain Location: none Pain Goal: Remain pain free Pain Plan: tylenol Tomorrow's Labs & Rationales: cbc,bep Levy BRAVO,Kendal 10/22/17 1454: Attending MD Review Statement Attending Statement Attending MD Statement: examined this patient, discuss w/resident/PA/HEALTH POLICY NURSE, agreed w/resident/PA/HEALTH POLICY NURSE, reviewed EMR data (avail), discussed with nursing, discussed with case mgmt, amended to note Attending Assessment/Plan: Patient seen and examined. This morning he is more alert. He is cooperative. However he is refusing to eat meals. He is able to engage in conversation but with periods of confusion. He remains afebrile and hemodynamically stable. On examination he has no focal deficit. He has been evaluated by the psychiatric service today and we are currently awaiting their assessment and recommendations. He was seen by the ID service today. Today is day 3 of antibiotic therapy. The ID service is recommending discontinuation of antibiotic therapy. Follow-up with the urology service. If patient remains afebrile overnight and hemodynamically stable will consider [facility]. Family to continue to encourage patient with his meals.
[2017-10-22 06:58] VITALS: BP 140/80
[2017-10-22 08:08] LABS: ABSOLUTE BASOPHIL COUNT 0 /CUMM (0.0-0.2); ABSOLUTE EOSINOPHIL COUNT 0 /CUMM (0.0-0.7); ABSOLUTE GRANULOCYTE CT 2.7 /CUMM (1.4-6.5); ABSOLUTE LYMPH COUNT 0.7 /CUMM (1.2-3.4); ABSOLUTE MONOCYTE COUNT 0.2 /CUMM (0.10-0.60); BASOPHIL % 0.2 % (0.0-2.0); EOSINOPHIL % 0.6 % (0-5); GRANULOCYTE % 74.2 % (42.2-75.2); HEMATOCRIT 22.6 % (42-52); MEAN CORPUSCULAR HGB 28.6 PG (27.0-31.0); MEAN CORPUSCULAR HGB CONC 33.1 G/DL (33.0-37.0); MEAN CORPUSCULAR VOLUME 86.4 FL (80.0-94.0); MEAN PLATELET VOLUME 10.4 FL (7.4-10.4); PLATELET COUNT 141 /CUMM (130-400); RBC DISTRIBUTION WIDTH 17.2 % (11.5-14.5); RED BLOOD CELL CT 2.62 /CUMM (4.70-6.10); WHITE BLOOD CELL COUNT 3.6 /CUMM (4.8-10.8)
--- NOTE | 2017-10-22 08:19 | PN- Diabetes ---
Assessment/Plan Assessment: Patient awakened today and answered my question. He remains confused. He has had a great deal of variation in his mental status from day to day and time to time. The patient was transferred to a regular floor recently but quickly returned to the telemetry because he became unresponsive. He passed the swallowing eval and is taking small amounts by mouth. Family the patient had an LP done by interventional radiology. It did not reveal any infection. At present he is on D5 half-normal saline +20 mEq KCl at 75 cc/h. His serum sodium is now normal at 144.. He is also on NovoLog coverage every 4 hours for sugar above 150. Most recent sugars are in a good range. . Plan: Continue IV fluids containing glucose and continue the present insulin regimen. Replete the patient's potassium. Try to improve nutrition. Subjective Subjective: Patient is confused. States he wants to sleep Objective Last 24 Hrs of Vital Signs/I&O Vital Signs Date Time Temp Pulse Resp B/P B/P Pulse O2 O2 Flow FiO2 Mean Ox Delivery Rate 10/22 657 98.7 71 20 140/80 93 Room Air 10/21 2207 97.6 73 20 120/72 96 Room Air 10/21 1447 97.6 77 20 120/70 97 Intake & Output 10/22 1600 10/22 0000 Intake Total 600 600 Output Total 300 250 Balance 300 350 Intake, IV 600 600 Intake, Oral 0 0 Number 1 0 Bowel Movements Output, Urine 300 250 Vital Signs Date Time Temp Pulse Resp B/P B/P Pulse O2 O2 Flow FiO2 Mean Ox Delivery Rate 10/22 657 98.7 71 20 140/80 93 Room Air 10/21 2207 97.6 73 20 120/72 96 Room Air 10/21 1446 97.6 77 20 120/70 97 Intake & Output 10/22 1600 10/22 0700 10/22 0000 Intake Total 600 600 Output Total 300 250 Balance 300 350 Intake, IV 600 600 Intake, Oral 0 0 Number 1 0 Bowel Movements Output, Urine 300 250 Physical Exam General Appearance: lethargic Head: normal appearance Neck: normal inspection Cardiovascular: regular rate/rhythm Abdomen: normal bowel sounds, soft Current Medications: Current Medications Sig/Juma Start time Last Medication Dose Route Stop Time Status Admin Acetaminophen 1,000 MG Q6P PRN 10/15 1730 AC 10/18 N/A 1 UNIT IV 1653 Ammonium Lactate 1 DILLAN BID 10/10 1000 AC 10/21 TOP 2156 Apixaban 2.5 MG BID 10/20 1000 AC PO Aspirin 81 MG DAILY 10/20 1000 AC PO Atorvastatin Calcium 80 MG 1700 10/14 1700 AC 10/19 PO 1729 Ceftriaxone Sodium 1,000 MG DAILY 10/20 1630 AC 10/21 IV 1152 Cholecalciferol 1,000 IU DAILY 10/12 1445 AC 10/19 PO 1511 Dextrose/Sodium 1,000 ML Q20H 10/15 1000 DC 10/20 Chloride IV 2052 Escitalopram Oxalate 10 MG DAILY 10/10 1000 AC 10/19 PO 1512 Famotidine 20 MG DAILY 10/14 1101 AC 10/19 PO 1512 Heparin Sodium 5,000 UNIT Q8 10/10 0600 AC 10/22 (Porcine) SC 0520 Insulin Aspart 0 Q4 10/13 0200 AC 10/22 SC 0522 Metoprolol Tartrate 50 MG BID 10/18 2359 AC 10/19 PO 1512 Multivitamins 1 TAB DAILY 10/12 1530 AC 10/19 PO 1512 Ondansetron HCl 4 MG .STK-MED ONE 10/21 1433 DC IM 10/21 1434 Ondansetron HCl 4 MG Q6P PRN 10/11 1330 AC 10/21 IV 1443 Pentoxifylline 400 MG DAILY 10/10 1000 AC 10/19 PO 1513 Potassium Chloride 20 MEQ 75 MLS/HR 10/22 1131 CAN IV Potassium Chloride 20 MEQ Q13H 10/21 1200 AC 10/22 Dextrose/Sodium 1,000 ML IV 0356 Chloride Potassium Chloride 75 MEQ DAILY 10/21 1131 DC IV Tamsulosin HCl 0.4 MG DAILY 10/10 1000 AC 10/19 PO 1513 Trimethoprim/ 1 TAB 10/21 1000 AC 10/21 Sulfamethoxazole PO 10/22 0959 1809 Findings Pertinent Lab/Lam Results: Laboratory Tests 10/22 0650 Chemistry Sodium Pending Potassium Pending Chloride Pending Carbon Dioxide Pending Anion Gap Pending BUN Pending Creatinine Pending BUN/Creatinine Ratio Pending Hematology CBC w Diff Pending WBC Pending RBC Pending Hgb Pending Hct Pending MCV Pending MCH Pending MCHC Pending RDW Pending Plt Count Pending MPV Pending
--- NOTE | 2017-10-22 09:38 | PN- Cardiology ---
Subjective Subjective: * Patient is more alert and responsive this morning with no complaints. * sinus rhythm * potassium is improved Objective Vital Signs and I&Os Vital Signs Date Time Temp Pulse Resp B/P B/P Pulse O2 O2 Flow FiO2 Mean Ox Delivery Rate 10/22 0558 98.7 71 20 140/80 93 Room Air 10/21 2208 97.6 73 20 120/72 96 Room Air 10/21 1447 97.6 77 20 120/70 97 Intake & Output 10/22 1600 10/22 0000 10/21 1600 10/21 0000 Intake Total 600 600 480 450 600 Output Total 300 250 700 500 450 Balance 300 350 -220 -50 150 Intake, IV 600 600 450 600 Intake, Oral 0 0 480 0 Number 1 0 0 Bowel Movements Output, Urine 300 250 700 500 450 Physical Exam: General: WD/overweight male in NAD Neck: no JVD, no carotid bruit Heart: RRR Lungs: clear bilaterally anteriorly ABdomen: soft, NT, +ve bowel sounds Extremities: no edema Assessment/Plan Assessment/Plan * Doing better on Metoprolol 50mg BID. * Continue Eliquis for stroke prophylaxis in the setting of paroxysmal atrial fibrillation. * If patient remains in a stable sinus rhythm tomorrow then he can come off telemetry. Continue telemetry? Yes
--- NOTE | 2017-10-22 10:03 | PN- Infect Dx ---
Subjective Subjective: Afebrile. He complains of pain in the upper back. Objective Last 24 Hrs of Vital Signs/I&O Vital Signs Date Time Temp Pulse Resp B/P B/P Pulse O2 O2 Flow FiO2 Mean Ox Delivery Rate 10/22 0658 98.7 71 20 140/80 93 Room Air 10/21 2208 97.6 73 20 120/72 96 Room Air 10/21 1447 97.6 77 20 120/70 97 Intake & Output 10/22 1600 10/22 0800 10/22 0000 Intake Total 600 600 Output Total 300 250 Balance 300 350 Intake, IV 600 600 Intake, Oral 0 0 Number 1 0 Bowel Movements Output, Urine 300 250 Physical Exam Other Physical Findings: He appears comfortable, awake and alert, in no acute distress Lungs are clear Heart regular rhythm with no murmur Abdomen is soft, nontender with positive bowel sounds Back no CVA tenderness Extremities no cyanosis, clubbing or edema Eduardo catheter remains in place Results Last 24 Hours of Lab Results: Laboratory Tests 10/22 0650 Chemistry Sodium (137 - 145 mmol/L) 145 Potassium (3.5 - 5.1 mmol/L) 4.3 Chloride (98 - 107 mmol/L) 112 H Carbon Dioxide (22 - 30 mmol/L) 22 Anion Gap (5 - 16) 10 BUN (9 - 20 mg/dL) 14 Creatinine (0.7 - 1.2 mg/dL) 0.7 Estimated GFR (>60 ml/min) > 60 BUN/Creatinine Ratio (7 - 25 %) 20.0 Hematology CBC w Diff NO MAN DIFF REQ WBC (4.8 - 10.8 /CUMM) 3.6 L RBC (4.70 - 6.10 /CUMM) 2.62 L Hgb (14.0 - 18.0 G/DL) 7.5 L Hct (42 - 52 %) 22.6 L MCV (80.0 - 94.0 FL) 86.4 MCH (27.0 - 31.0 PG) 28.6 MCHC (33.0 - 37.0 G/DL) 33.1 RDW (11.5 - 14.5 %) 17.2 H Plt Count (130 - 400 /CUMM) 141 MPV (7.4 - 10.4 FL) 10.4 Gran % (42.2 - 75.2 %) 74.2 Lymphocytes % (20.5 - 51.1 %) 18.9 L Monocytes % (1.7 - 9.3 %) 6.1 Eosinophils % (0 - 5 %) 0.6 Basophils % (0.0 - 2.0 %) 0.2 Absolute Granulocytes (1.4 - 6.5 /CUMM) 2.7 Absolute Lymphocytes (1.2 - 3.4 /CUMM) 0.7 L Absolute Monocytes (0.10 - 0.60 /CUMM) 0.2 Absolute Eosinophils (0.0 - 0.7 /CUMM) 0 Absolute Basophils (0.0 - 0.2 /CUMM) 0 Last 24 Hours of Lam Results: CSF culture October 19 negative Assessment/Plan Impression: Stable, with temperatures remaining normal, now on Ceftriaxone, apparently begun 2 days ago because of concern for a urinary tract infection, though, unfortunately, a urine culture was not sent. His urinalysis did reveal pyuria, of unclear significance with an indwelling catheter in place, though it does reveal budding yeast and pseudohyphae, suggestive of Rafia, which likely represents colonization and would not be covered by the Ceftriaxone. His recent CSF was negative for any evidence of infection, but did reveal 2 oligoclonal bands, of unclear significance, and would appreciate Neuro follow-up on this. Other issues include retroperitoneal, left inguinal and iliac lymphadenopathy, seen on his CT scans but, as discussed with IR, none of these are felt to be amenable to aspiration. Metastatic prostate cancer is also a concern but the cystoscopy/ possible prostate biopsy, was canceled. Suggestion: 1. Add a urine culture to his recent urinalysis if possible 2. Follow-up CSF results, including cytology, RPR, PCR for HSV and JORGE virus, and AFB and fungal cultures 3. Neurology follow-up regarding the positive oligoclonal bands on his previous CSF 4. Remove Eduardo catheter 5. Discontinue Ceftriaxone 6. Continue antiretroviral and PJP/MARCUS prophylaxis
[2017-10-22 14:48] VITALS: BP 146/70
--- NOTE | 2017-10-22 16:11 | PN- Neurology ---
Subjective Subjective: Has been doing better today for mental status perspective but still confused. Treatment with antibiotics for presumed UTI. Review of Systems: No change. Objective Vital Signs and I&Os Vital Signs Date Time Temp Pulse Resp B/P B/P Pulse O2 O2 Flow FiO2 Mean Ox Delivery Rate 10/22 1448 98.1 63 20 146/70 93 10/22 1427 Nasal 2.0L Cannula 10/22 1207 71 140/80 10/22 0658 98.7 71 20 140/80 93 Room Air 10/21 2208 97.6 73 20 120/72 96 Room Air Intake & Output 10/22 1600 10/22 0800 10/22 0000 10/21 1600 10/21 0800 10/21 0000 Intake Total 850 600 600 480 450 600 Output Total 600 300 250 700 500 450 Balance 250 300 350 -220 -50 150 Intake, IV 650 600 600 450 600 Intake, Oral 200 0 0 480 0 Number 1 0 0 Bowel Movements Output, Urine 600 300 250 700 500 450 Physical Exam: Sleeping. Wakes up to verbal call opens his eyes. Speaks back to questions however still disoriented. Extra ocular movements intact and symmetric face. Full strength. Current Medications: Current Medications Sig/Juma Start time Last Medication Dose Route Stop Time Status Admin Acetaminophen 1,000 MG Q6P PRN 10/15 1730 AC 10/18 N/A 1 UNIT IV 1653 Ammonium Lactate 1 DILLAN BID 10/10 1000 AC 10/22 TOP 1216 Apixaban 2.5 MG BID 10/20 1000 AC 10/22 PO 1206 Aspirin 81 MG DAILY 10/20 1000 AC PO Atorvastatin Calcium 80 MG 1700 10/14 1700 AC 10/19 PO 1729 Ceftriaxone Sodium 1,000 MG DAILY 10/20 1630 AC 10/22 IV 1216 Cholecalciferol 1,000 IU DAILY 10/12 1445 AC 10/19 PO 1511 Escitalopram Oxalate 10 MG DAILY 10/10 1000 AC 10/22 PO 1207 Famotidine 20 MG DAILY 10/14 1101 AC 10/19 PO 1512 Heparin Sodium 5,000 UNIT Q8 10/10 0600 AC 10/22 (Porcine) SC 1300 Insulin Aspart 0 Q4 10/13 0200 AC 10/22 SC 1217 Metoprolol Tartrate 50 MG BID 10/18 2359 AC 10/22 PO 1207 Multivitamins 1 TAB DAILY 10/12 1530 AC 10/19 PO 1512 Ondansetron HCl 4 MG Q6P PRN 10/11 1330 AC 10/22 IV 1210 Pentoxifylline 400 MG DAILY 10/10 1000 AC 10/19 PO 1513 Potassium Chloride 20 MEQ Q13H 10/21 1200 AC 10/22 Dextrose/Sodium 1,000 ML IV 0356 Chloride Tamsulosin HCl 0.4 MG DAILY 10/10 1000 AC 10/19 PO 1513 Trimethoprim/ 1 TAB 10/21 1000 DC 10/21 Sulfamethoxazole PO 10/22 0959 1809 Results Last 24 Hours of Lab Results: Laboratory Tests 10/22 0650 Chemistry Sodium (137 - 145 mmol/L) 145 Potassium (3.5 - 5.1 mmol/L) 4.3 Chloride (98 - 107 mmol/L) 112 H Carbon Dioxide (22 - 30 mmol/L) 22 Anion Gap (5 - 16) 10 BUN (9 - 20 mg/dL) 14 Creatinine (0.7 - 1.2 mg/dL) 0.7 Estimated GFR (>60 ml/min) > 60 BUN/Creatinine Ratio (7 - 25 %) 20.0 Hematology CBC w Diff NO MAN DIFF REQ WBC (4.8 - 10.8 /CUMM) 3.6 L RBC (4.70 - 6.10 /CUMM) 2.62 L Hgb (14.0 - 18.0 G/DL) 7.5 L Hct (42 - 52 %) 22.6 L MCV (80.0 - 94.0 FL) 86.4 MCH (27.0 - 31.0 PG) 28.6 MCHC (33.0 - 37.0 G/DL) 33.1 RDW (11.5 - 14.5 %) 17.2 H Plt Count (130 - 400 /CUMM) 141 MPV (7.4 - 10.4 FL) 10.4 Gran % (42.2 - 75.2 %) 74.2 Lymphocytes % (20.5 - 51.1 %) 18.9 L Monocytes % (1.7 - 9.3 %) 6.1 Eosinophils % (0 - 5 %) 0.6 Basophils % (0.0 - 2.0 %) 0.2 Absolute Granulocytes (1.4 - 6.5 /CUMM) 2.7 Absolute Lymphocytes (1.2 - 3.4 /CUMM) 0.7 L Absolute Monocytes (0.10 - 0.60 /CUMM) 0.2 Absolute Eosinophils (0.0 - 0.7 /CUMM) 0 Absolute Basophils (0.0 - 0.2 /CUMM) 0 Assessment/Plan Assessment: 82-year-old man with a UTI and significant encephalopathy. Most likely an underlying neurodegenerative disease at baseline. Plan: Consider adding Aricept in the future and possibly Namenda. Neurology signing off.
--- NOTE | 2017-10-22 17:02 | Cons- Psychiatry ---
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 He fell on his left hip while gettin gout of bed. The patient had been living with his daughter after moving to her house from elderly housing in [place]. He denies LOC, head strike, incontinence, seizure. Per H& P, there was no confusion after the fall. He was recently admitted in August 2017 for UTI status post TURP procedure by Dr. Victoria. He was again admitted in September 2017 for fever of unknown origin mostly from retroperitoneal lymphadenopathy. He has persistent pyuria, monitored off from antibiotics during last admission. PMHx includes HIV with CD4 count less than 20 (As of PCR on 10/20/17) on prophylactic antibiotics, CAD s/p CA and stents, on dual antiplatelet regimen. HTN, DMT2, GERD, BPH. On 10/14/17, he had a sudden change of mental status, CT head showed a possible evolving infarct; MRI not available. Neurology consulted did not warrant TPA treatment as no neurological deficit and unknown time of onset. Patient was transferred to [facility] back. A rapid response was called on him due to seizure- like activity. CAT scan of the head was negative. Another rapid response was called on him because of tachycardia with a heart rate of 180s. Metoprolol and Cardizem was given. He was transferred to telemetry for monitoring. He is in atrial fibrillation with a controlled heart rate of 80. He was seen by outbound sales consultant who suggested IV heparin. PE was ruled out. Patient was started on Eliquis 2.5 mg twice a day in view of atrial fibrillation. Patient was seen by urology who suggested to stop the continuous bladder irrigation in view of clear urine and continue Eduardo for 1 more week. Urologist wanted to start him on antibiotics empirically. Patient was started on IV ceftriaxone since he refuses by mouth meds. Patient afebrile. Allergies: Coded Allergies: No Known Allergies (08/26/17) Current Medications: Current Medications Sig/Juma Start time Last Medication Dose Route Stop Time Status Admin Acetaminophen 1,000 MG Q6P PRN 10/15 1730 AC 10/18 N/A 1 UNIT IV 1653 Ammonium Lactate 1 DILLAN BID 10/10 1000 AC 10/22 TOP 1216 Apixaban 2.5 MG BID 10/20 1000 AC 10/22 PO 1206 Aspirin 81 MG DAILY 10/20 1000 AC PO Atorvastatin Calcium 80 MG 1700 10/14 1700 AC 10/19 PO 1729 Ceftriaxone Sodium 1,000 MG DAILY 10/20 1630 AC 10/22 IV 1216 Cholecalciferol 1,000 IU DAILY 10/12 1445 AC 10/19 PO 1511 Escitalopram Oxalate 10 MG DAILY 10/10 1000 AC 10/22 PO 1207 Famotidine 20 MG DAILY 10/14 1101 AC 10/19 PO 1512 Heparin Sodium 5,000 UNIT Q8 10/10 0600 AC 10/22 (Porcine) SC 1300 Insulin Aspart 0 Q4 10/13 0200 AC 10/22 SC 1217 Metoprolol Tartrate 50 MG BID 10/18 2359 AC 10/22 PO 1207 Multivitamins 1 TAB DAILY 10/12 1530 AC 10/19 PO 1512 Ondansetron HCl 4 MG .STK-MED ONE 10/22 1210 DC IM 10/22 1211 Ondansetron HCl 4 MG Q6P PRN 10/11 1330 AC 10/22 IV 1210 Pentoxifylline 400 MG DAILY 10/10 1000 AC 10/19 PO 1513 Potassium Chloride 20 MEQ Q13H 10/21 1200 AC 10/22 Dextrose/Sodium 1,000 ML IV 1751 Chloride Tamsulosin HCl 0.4 MG DAILY 10/10 1000 AC 10/19 PO 1513 Trimethoprim/ 1 TAB 10/21 1000 DC 10/21 Sulfamethoxazole PO 10/22 0959 1809 Past History Past Medical History Neurological: NONE EENT: glaucoma Cardiovascular: CAD (s/p stent), hypertension, myocardial infarction Respiratory: NONE Gastrointestinal: GERD Hepatic: NONE Renal: benign prost hyperplasia Musculoskeletal: NONE Psychiatric: depression Endocrine: diabetes Blood Disorders: HIV Cancer(s): NONE 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 Past Surgical History Surgical History: non-contributory Psychosocial History Strengths/Capabilities: Supportive daughter Physical Limitations (Interventions): Ambulatory status unknown Psychiatric Treatment History Psych Treatment Psychiatric Treatment Yes Inpatient Treatment No (Unknown) Outpatient Treatment Yes Location of Treatment [place] Reason for Treatment Depression Dates of Treatment Currently prescribed escitalopram Response to Treatment Unknown Diagnosis: Depression Risk Factors: age (under 24/over 65), chronic/serious med cond., male Substance Use/Abuse History Drug Use/Abuse Substances Used/Abused No Substance Abuse Treatment Substance Abuse Treatment Past Substance Abuse [place] No Assessment/Plan Mental Status Orientation: Confused Affect: Flat Speech: Delayed, Mumbled, Poverty Neuro-vegetative: Concentration Poor Mental Status Exam: Folstein/MMSE today: Score 5/27, suggestive of severe cognitive impairment, with deficits in all domains except registering 3 objects and identifying 2 objects. Portuguese instructions by this copywriter; supplemented by English instructions by his daughter. He is alert, looking out the window in the door, with intermittent attention. He is calm and pleasant. He is sitting in his chair, not in restraints; he has a Eduardo catheter in place. He reports that he feels depressed; denies anxiety. He denies suicidal ideation, active or passive. He denies auditory or visual hallucinations. As the interview progressed, his daughter noticed that his responses became more thoughtful. He explained that he did not wish to take his oral medications because it made his stomach hurt. Lab Results: 10/12/17 Vitamin B12 235L, Vitamin D 13.0L 10/14/17 TSH WNL, FT4 1.96H 10/20/17 Urinalysis: Hazy, yellow, WBC 50-75, few bacteria, rare epithelial cells, rare mucous threads, budding yeast and pseudohyphae seen, S.G.1.025, Ph 6.0, glucose NEG, ketone NEG, hemoglobin large, bilirubin NEG, protein 30, urobilin. 0.2, nitrite NEG, leukocyte esterase large. Laboratory Tests 10/22 0650 Chemistry Sodium (137 - 145 mmol/L) 145 Potassium (3.5 - 5.1 mmol/L) 4.3 Chloride (98 - 107 mmol/L) 112 H Carbon Dioxide (22 - 30 mmol/L) 22 Anion Gap (5 - 16) 10 BUN (9 - 20 mg/dL) 14 Creatinine (0.7 - 1.2 mg/dL) 0.7 Estimated GFR (>60 ml/min) > 60 BUN/Creatinine Ratio (7 - 25 %) 20.0 Hematology CBC w Diff NO MAN DIFF REQ WBC (4.8 - 10.8 /CUMM) 3.6 L RBC (4.70 - 6.10 /CUMM) 2.62 L Hgb (14.0 - 18.0 G/DL) 7.5 L Hct (42 - 52 %) 22.6 L MCV (80.0 - 94.0 FL) 86.4 MCH (27.0 - 31.0 PG) 28.6 MCHC (33.0 - 37.0 G/DL) 33.1 RDW (11.5 - 14.5 %) 17.2 H Plt Count (130 - 400 /CUMM) 141 MPV (7.4 - 10.4 FL) 10.4 Gran % (42.2 - 75.2 %) 74.2 Lymphocytes % (20.5 - 51.1 %) 18.9 L Monocytes % (1.7 - 9.3 %) 6.1 Eosinophils % (0 - 5 %) 0.6 Basophils % (0.0 - 2.0 %) 0.2 Absolute Granulocytes (1.4 - 6.5 /CUMM) 2.7 Absolute Lymphocytes (1.2 - 3.4 /CUMM) 0.7 L Absolute Monocytes (0.10 - 0.60 /CUMM) 0.2 Absolute Eosinophils (0.0 - 0.7 /CUMM) 0 Absolute Basophils (0.0 - 0.2 /CUMM) 0 Specimen: [id number] Status: COMP Sub Dr: Kendal Lockett MD Collected: 10/20/17624 Received: 10/20/17 Ordered: HIV RNA/PCR Q_c, LYMPHOCYTE SUBS Test Result Flag Reference > HIV RNA | | | -1317 | TEST RESULT REFERENCE RANGE | ----- | HIV 1 RNA QUANTITATIVE REAL TIME PCR | HIV 1 RNA QN PCR 59 H NOT DETECTED copies/mL | HIV 1 RN QN PCR 1.77 H NOT DETECTED Log copies/mL | | THIS TEST WAS PERFORMED USING REAL-TIME POLYMERASE CHAIN | REACTION. | | REPORTABLE RANGE: 20 copies/mL TO 10,000,000 copies/mL | (1.30 log copies/mL TO 7.00 log copies/mL) | HIV-1 RNA,PCR, 1st GEN Copies/ml (Version 1.0) | | REFERENCE RANGE <400 copies/ml | | ===== | TEST DONE BY [facility] | ===== LYMPHOCYTE SUBS | | | > % CD3 | 80 | | 57-85 % > ABSOLUTE CD3+ | 580 | L | 840-3060 cells/uL | > % CD4 | 2 | L | 30-61 % > ABSOLUTE CD4+ | <20 | L | 490-1740 cells/uL | > % CD8 | 77 | H | 12-42 % > ABSOLUTE CD8+ | 562 | | 180-1170 cells/uL | > HELPER/SUPPRESS | 0.03 | L | 0.86-5.00 > ABSOLUTE LYMPH | 726 | L | 850-3900 cells/uL | | | Test performed at [facility] | [address] | [place] [address] | Director: ALEE EUGENE MD | Diffential Diagnosis: R41.0 Unspecified delirium F05 Delirium due to multiple etiologies B20 HIV infection 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 F32.9 Major Depressive disorder, unspecified Impression: This gentleman's mental status has been varying throughout this admission. Delirium noted today by this copywriter, but improving over the course of the visit. The current presentation, and its rather sudden onset, and waxing and waning course suggests delirium. However, he may have suffered a small CVA, per the medical team. The daughter reports that he has been confused over the last two weeks. A reversible dementia workup has been performed, including head imaging and LP; a Lyme titer has not been ordered. The UA suggests a UTI, however, urine C & S has been negative and there have been no medical symptoms. Dr. Victoria has started an antibiotic. There is probably dementia underlying the current delirium, which may be due to lingering effects of a urinary tract infection. These effects can persist for some time, perhaps several weeks, after treatment for UTI has completed. The EKG of 10/21/17 shows SR, 89 bpm, QTc 507 mS. Escitalopram can prolong QTc, which currently is in excess of 475 mS, and we will hold this medication. Also, escitalopram can cause or exacerbate hyponatremia, although the current sodium level is WNL. Sincere indicates that the oral medications are hurting his stomach. He agreed to take 1-2 pills at a time, ostensibly to see which one is causing him problems , but he may find this method easier to comply with. Nursing consulted, and agrees to a trial of this method. Provisional Treatment Plan: 1. Escitalopram/Lexapro 10 mg held, due to concern that it is contributing to QTc prolongation. 2. Avoid delirium triggers. Avoid nursing interventions between 10PM and 6AM, as much as possible. 3. Try to administer oral medications a few at a time, hopefully promoting adherence. We will look in on the patient again, and review with the team the possibility of restarting the escitalopram.
[2017-10-22 17:16] LABS: VDRL, CSF Nonreactive (Nonreactive)
[2017-10-22 23:00] VITALS: BP 142/78
[2017-10-23 06:30] VITALS: BP 116/68
--- NOTE | 2017-10-23 07:08 | PN- Housestaff ---
Ana Luisa Cummings MD 10/23/17 0707: Subjective Follow-up For: HIV, altered mental status, stroke, hematuria Complaints: complaints of lower abdominal pain Tele-Events Since Last Visit: Sinus rhythm heart rate 80 Subjective: Patient was seen and examined at bedside. Overnight patient had hematuria. He was lying in his bed and complained of pain in his lower abdomen. He is alert, oriented 2. He is able to follow commands. He denied chest pain, back pain, shortness of breath, weakness. Review of Systems Constitutional: Reports: no symptoms. Cardiovascular: Reports: no symptoms. Respiratory: Reports: no symptoms. Gastrointestinal: Reports: abdominal pain. Genitourinary: Reports: no symptoms. Musculoskeletal: Reports: no symptoms. Objective Last 24 Hrs of Vital Signs/I&O Vital Signs Date Time Temp Pulse Resp B/P B/P Pulse O2 O2 Flow FiO2 Mean Ox Delivery Rate 10/23 0530 97.2 87 20 116/68 97 10/22 2300 97.6 63 20 142/78 97 10/22 1448 98.1 63 20 146/70 93 10/22 1427 Nasal 2.0L Cannula Intake & Output 10/23 1600 10/23 0800 10/23 0000 Intake Total 650 600 Output Total 500 700 Balance 150 -100 Intake, IV 650 600 Intake, Oral 0 Number 2 Bowel Movements Output, Urine 500 700 Physical Exam General Appearance: Alert, Oriented X3, No Acute Distress, oriented* 2 Cardiovascular: Regular Rate, Normal S1, Normal S2, No Murmurs Lungs: Clear to Auscultation, Normal Air Movement Abdomen: Normal Bowel Sounds, Soft, No Tenderness, No Hepatospenomegaly Neurological: Normal Speech, Strength at 5/5 X4 Ext, Normal Tone, Sensation Intact Current Medications: Current Medications Sig/Juma Start time Last Medication Dose Route Stop Time Status Admin Acetaminophen 1,000 MG ONCE ONE 10/23 0500 DC 10/23 N/A 1 UNIT IV 10/23 0514 0505 Acetaminophen 1,000 MG Q6P PRN 10/15 1730 AC 10/18 N/A 1 UNIT IV 1653 Ammonium Lactate 1 DILLAN BID 10/10 1000 AC 10/22 TOP 1216 Apixaban 2.5 MG BID 10/20 1000 DC 10/22 PO 1206 Aspirin 81 MG DAILY 10/20 1000 DC PO Atorvastatin Calcium 80 MG 1700 10/14 1700 AC 10/19 PO 1729 Ceftriaxone Sodium 1,000 MG DAILY 10/20 1630 AC 10/22 IV 1216 Cholecalciferol 1,000 IU DAILY 10/12 1445 AC 10/19 PO 1511 Escitalopram Oxalate 10 MG DAILY 10/10 1000 DC 10/22 PO 1207 Famotidine 20 MG DAILY 10/14 1101 AC 10/19 PO 1512 Fluconazole 400 MG ONCE ONE 10/23 1000 DC 10/23 Sodium Chloride 200 ML IV 10/23 1159 1122 Heparin Sodium 5,000 UNIT Q8 10/10 0600 AC 10/22 (Porcine) SC 1300 Insulin Aspart 0 Q4 10/13 0200 AC 10/23 SC 1104 Metoprolol Tartrate 50 MG BID 10/18 2359 AC 10/22 PO 1207 Multivitamins 1 TAB DAILY 10/12 1530 AC 10/19 PO 1512 Ondansetron HCl 4 MG Q6P PRN 10/11 1330 AC 10/22 IV 1210 Pentoxifylline 400 MG DAILY 10/10 1000 AC 10/19 PO 1513 Potassium Chloride 20 MEQ Q13H 10/21 1200 AC 10/23 Dextrose/Sodium 1,000 ML IV 0824 Chloride Tamsulosin HCl 0.4 MG DAILY 10/10 1000 AC 10/19 PO 1513 Last 24 Hrs of Lab/Lam Results Last 24 Hrs of Labs/Mics: Laboratory Tests 10/23/17 0614: Anion Gap 11, Estimated GFR > 60, BUN/Creatinine Ratio 13.8, CBC w Diff NO MAN DIFF REQ, RBC 2.46 L, MCV 86.6, MCH 29.1, MCHC 33.6, RDW 17.1 H, MPV 10.5 H, Gran % 87.0 H, Lymphocytes % 5.8 L, Monocytes % 6.7, Eosinophils % 0.5, Basophils % 0, Absolute Granulocytes 3.7, Absolute Lymphocytes 0.2 L, Absolute Monocytes 0.3, Absolute Eosinophils 0, Absolute Basophils 0 Assessment/Plan Assessment: 82-year-old male with past medical history significant for coronary artery disease status post MN, stent placement on dual antiplatelet regimen, HIV with CD4 count 82 on prophylactic antibiotics Bactrim, azithromycin, Prezcobix, dolutegravir, depression, hypertension, type 2 diabetes mellitus, GERD, BPH, recently discharged for fever of unknown origin, retroperitoneal lymphadenopathy questionable lymphoma presenting to the emergency room for left hip pain status post fall x2. Problem List: #Altered mental status/hematuria * Patient was transferred to [facility] for evaluation of possible stroke/sudden onset of altered mental status. CT Head showed possible evolving infarct however MRI was negative. Neurology consulted did not warrant TPA treatment as no neurological deficit and unkonw time of onset. Patient is more awake, alert and oriented 2. He does have periods of confusion on and off. * Fall precaution. * Patient has hematuria during the hospital course and renal ultrasound was taken which showed echogenic material. Hence continuous bladder irrigation was started. A week ago patient had clear urine and hence continuous bladder irrigation was stopped. Dr. Victoria suggested to keep the Eduardo for a week. * Since yesterday night patient is having hematuria with abdominal distention. Dr. Victoria tried to insert Eduardo and felt some resistance and decreased urine output. Hence the procedure was deferred and plan to take him to or for cystoscopy to cauterize any bleeding and to insert a new Eduardo. * Patient is on IV ceftriaxone per Urology * Patient hemoglobin today 7.2. We will repeat one in no and if it is less than 8 we will transfuse 1 unit of blood transfusion today. * Patient daughter is involved in care patient's medical condition is updated until today. #Acute renal failure, likely from contrast use-which is resolved now. * Patient has acute renal failure secondary to contrast-induced nephropathy. We will continue IV fluids [patient refuses food/medication for past 2 days] and monitor his renal parameters. * Nephrology consult if worsening. * Avoid nephrotoxins. * Avoid hydrochlorothiazide #fall * Hip x-ray, pelvic x-ray, lumbar spine x-ray, head/ cervical spine CT negative for acute fractures VitD /B12 levels low. On vitamin D and calcium supplementation. * Continue vit D and multivtiamin supplmentation * PT recommends STR #FUO * Resolved. Ucx and blood cx , blood cultures, sputum culture thus far negative * Rapid flu negative. IR guided lumbar puncture done. We will follow up with cultures. * CT Ab/pelvis w/ contrast did not show active infectious source including collection. * IV antibiotics per urology and continue azithromycin and Bactrim for prophylaxis. * continue HIV medications * Tylenol 650mg once for his spiked fever this morning. * Patient urine culture is growing yeast. We will give him 1 dose of fluconazole 400 mg IV prior infectious disease. #HIV * Last CD4 count 82 * continue prescobix and dolutragravir daily. * continue Bactrim, azithromycin, valacyclovir #DM * We will continue NovoLog coverage every 4 hours. #Coronary artery disease status post stent placement -continue aspirin, statin, Plavix #Peripheral vascular disease -continue pentoxifylline 400 mg daily #Depression * Lexapro was discontinued per psychiatry given his prolonged QTC. She was seen by psychiatry yesterday who suggested that his altered mental status can be due to underlying dementia with superimposed delirium. Advised to avoid delirium triggers. Psychiatry follow-up appreciated. #Hypertension * continue metoprolol. * hold hydrochlorothiazide #GERD * continue omeprazole #BPH s/p TURP * continue tamsulosin #Insomnia * continue zolpidem as needed for sleep #FULL CODE #DVT prophylaxis subcutaneous heparin Problem List: 1. Altered mental status 2. BPH (benign prostatic hyperplasia) 3. Stroke 4. Diabetes 5. Fever of unknown origin Pain Ratin Pain Location: NONE Pain Goal: Remain pain free Pain Plan: TYLENOL Tomorrow's Labs & Rationales: CBC,BEP Levy BRAVO,Kendal 10/23/17 1046: Attending MD Review Statement Attending Statement Attending MD Statement: examined this patient, discuss w/resident/PA/TRANSPORTATION SECURITY SCREENER, agreed w/resident/PA/TRANSPORTATION SECURITY SCREENER, reviewed EMR data (avail), discussed with nursing, discussed with case mgmt, amended to note Attending Assessment/Plan: Patient seen and examined. He has been oriented this morning. Conversant appropriately. Answering questions. Today he reports that he is willing to try some food. He had been refusing meals yesterday. Overnight patient was noted to have hematuria. It is suspected that he may have been pulling on his Eduardo catheter. There was difficulty obtaining urine from the Eduardo catheter and irrigating it so the urology service was called. Eduardo catheter was removed and a new one was unable to be inserted. He will be going to the OR today for repeat cystoscopy. It is noted that patient has been afebrile for the past 4 days. He has been afebrile even prior to initiation of antibiotic therapy started by the patient's urologist. Urine cultures are currently growing Rafia. Case discussed with the ID service recommends a dose of fluconazole. No antibiotic therapy is recommended by the ID service. I did discuss this in detail with the patient's urologist Dr. Victoria. Patient does not have any bacterial infection that would warrant antibiotic therapy. Dr. Victoria is recommending discontinuing antibiotic therapy tomorrow after patient has completed 5 days of therapy. Patient's daughter following discussion with the urology service of the impression that the antibiotic therapy is what is improving his mental status. Patient however has had waxing and waning mentation during his 6 weeks hospitalization. Psychiatric consultation appreciated. Patient likely has underlying dementia. The neurology service is recommending initiation of Aricept and/or Namenda in the future. I would recommend follow-up with the neurology service as an outpatient when patient's clinical status improved prior to initiation of these medications. Patient has acute on chronic anemia today likely due to hematuria that occurred overnight. Repeat hemoglobin level post procedure. Recommend transfusion of 1 PRBC if hemoglobin level persists below 8.
[2017-10-23 08:08] LABS: ABSOLUTE BASOPHIL COUNT 0 /CUMM (0.0-0.2); ABSOLUTE EOSINOPHIL COUNT 0 /CUMM (0.0-0.7); ABSOLUTE GRANULOCYTE CT 3.7 /CUMM (1.4-6.5); ABSOLUTE LYMPH COUNT 0.2 /CUMM (1.2-3.4); ABSOLUTE MONOCYTE COUNT 0.3 /CUMM (0.10-0.60); BASOPHIL % 0 % (0.0-2.0); EOSINOPHIL % 0.5 % (0-5); HEMATOCRIT 21.3 % (42-52); MEAN CORPUSCULAR HGB 29.1 PG (27.0-31.0); MEAN CORPUSCULAR HGB CONC 33.6 G/DL (33.0-37.0); MEAN CORPUSCULAR VOLUME 86.6 FL (80.0-94.0); MEAN PLATELET VOLUME 10.5 FL (7.4-10.4); PLATELET COUNT 178 /CUMM (130-400); RBC DISTRIBUTION WIDTH 17.1 % (11.5-14.5); RED BLOOD CELL CT 2.46 /CUMM (4.70-6.10); WHITE BLOOD CELL COUNT 4.2 /CUMM (4.8-10.8)
--- NOTE | 2017-10-23 08:18 | PN- Diabetes ---
Assessment/Plan Assessment: Patient awakened today and answered my question. He remains confused. He has had a great deal of variation in his mental status from day to day and time to time. The patient was transferred to a regular floor recently but quickly returned to the telemetry because he became unresponsive. He passed the swallowing eval and is taking small amounts by mouth. Family the patient had an LP done by interventional radiology. It did not reveal any infection. The patient apparently passed a swallowing eval and is able to eat thickened liquids. However he is eating very little at this time. At present he is on D5 half-normal saline +20 mEq KCl at 75 cc/h. His serum sodium is now normal at 144.. He is also on NovoLog coverage every 4 hours for sugar above 150. Most recent sugars are in a good range. . Plan: Suggest continue IV fluids with D5 half-normal saline +20 mEq KCl at 75 cc an hour. Continue NovoLog coverage every 4 hours. When the patient is eating better we can switch his NovoLog to before meals and Hep-Lock his IV fluids. Subjective Subjective: In pain this morning because of urinary retention Objective Last 24 Hrs of Vital Signs/I&O Vital Signs Date Time Temp Pulse Resp B/P B/P Pulse O2 O2 Flow FiO2 Mean Ox Delivery Rate 10/23 0530 97.2 87 20 116/68 97 10/22 2300 97.6 63 20 142/78 97 10/22 1448 98.1 63 20 146/70 93 10/22 1427 Nasal 2.0L Cannula 10/22 1206 71 140/80 Intake & Output 10/23 1600 10/23 799 02 0000 Intake Total 600 Output Total 700 Balance -100 Intake, IV 600 Output, Urine 700 Vital Signs Date Time Temp Pulse Resp B/P B/P Pulse O2 O2 Flow FiO2 Mean Ox Delivery Rate 10/23 0530 97.2 87 20 116/68 97 10/22 2300 97.6 63 20 142/78 97 10/22 1448 98.1 63 20 146/70 93 10/22 1427 Nasal 2.0L Cannula 10/227 71 140/80 Intake & Output 10/23 1600 10/23 0700 02 0000 Intake Total 600 Output Total 700 Balance -100 Intake, IV 600 Output, Urine 700 Physical Exam General Appearance: alert, awake Head: normal appearance Neck: normal inspection Cardiovascular: regular rate/rhythm Abdomen: distention Current Medications: Current Medications Sig/Juma Start time Last Medication Dose Route Stop Time Status Admin Acetaminophen 1,000 MG ONCE ONE 10/23 0500 DC 10/23 N/A 1 UNIT IV 10/23 0514 0505 Acetaminophen 1,000 MG Q6P PRN 10/15 1730 AC 10/18 N/A 1 UNIT IV 1653 Ammonium Lactate 1 DILLAN BID 10/10 1000 AC 10/22 TOP 1216 Apixaban 2.5 MG BID 10/20 1000 AC 10/22 PO 1206 Aspirin 81 MG DAILY 10/20 1000 AC PO Atorvastatin Calcium 80 MG 1700 10/14 1700 AC 10/19 PO 1729 Ceftriaxone Sodium 1,000 MG DAILY 10/20 1630 AC 10/22 IV 1216 Cholecalciferol 1,000 IU DAILY 10/12 1445 AC 10/19 PO 1511 Escitalopram Oxalate 10 MG DAILY 10/10 1000 DC 10/22 PO 1207 Famotidine 20 MG DAILY 10/14 1101 AC 10/19 PO 1512 Heparin Sodium 5,000 UNIT Q8 10/10 0600 AC 10/22 (Porcine) SC 1300 Insulin Aspart 0 Q4 10/13 0200 AC 10/23 SC 0801 Metoprolol Tartrate 50 MG BID 10/18 2359 AC 10/22 PO 1207 Multivitamins 1 TAB DAILY 10/12 1530 AC 10/19 PO 1512 Ondansetron HCl 4 MG .STK-MED ONE 10/22 1210 DC IM 10/22 1211 Ondansetron HCl 4 MG Q6P PRN 10/11 1330 AC 10/22 IV 1210 Pentoxifylline 400 MG DAILY 10/10 1000 AC 10/19 PO 1513 Potassium Chloride 20 MEQ Q13H 10/21 1200 AC 10/22 Dextrose/Sodium 1,000 ML IV 1751 Chloride Tamsulosin HCl 0.4 MG DAILY 10/10 1000 AC 10/19 PO 1513 Trimethoprim/ 1 TAB 10/21 1000 DC 10/21 Sulfamethoxazole PO 10/22 0959 1809 Findings Pertinent Lab/Lam Results: Laboratory Tests 10/23 613 Chemistry Sodium Pending Potassium Pending Chloride Pending Carbon Dioxide Pending Anion Gap Pending BUN Pending Creatinine Pending BUN/Creatinine Ratio Pending Hematology CBC w Diff Pending WBC Pending RBC Pending Hgb Pending Hct Pending MCV Pending MCH Pending MCHC Pending RDW Pending Plt Count Pending MPV Pending
--- NOTE | 2017-10-23 08:23 | Event Note ---
Event Note Event Note: Patient was seen by Dr. Victoria for his hematuria. 82-year-old male with past medical history significant for coronary artery disease status post [place], stent placement on dual antiplatelet regimen, HIV with CD4 count 82 on prophylactic antibiotics Bactrim, azithromycin, Prezcobix, dolutegravir, depression, hypertension, type 2 diabetes mellitus, GERD, BPH, recently discharged for fever of unknown origin, retroperitoneal lymphadenopathy questionable lymphoma presenting to the emergency room for left hip pain status post fall x2 did for fever of unknown origin, fall. Patient was on Eduardo catheter following TURP in August 2017. Patient had multiple clots and hematuria and was started on continuous bladder irrigation. Patient had 1 unit of blood transfusion during the course. Continuous Bladder irrigation was stopped a week ago. Patient started having clear urine. Last night patient had hematuria. No overnight team was informed. overnight nurse tried bladder irrigation and she felt some resistance. Bladder was distended. Patient complained of pain and IV Tylenol was given for the same. Bladder scan was not done. Eduardo was not removed/changed. On examination patient alert, oriented 2. Complains of pain lower abdomen. Dr. Victoria was by the bedside and tried to insert a new Eduardo and felt some resistance. Hence the procedure was deferred. He suggested to take him to OR for cystoscopy for cauterization of the bleeding spots and insertion of Eduardo. Patient kept nothing by mouth and his Eliquis was stopped. Daughter Yandy was informed over the phone, regarding the patient's current condition and possible OR evaluation. She agreed to the procedure.
--- NOTE | 2017-10-23 11:59 | PN- Infect Dx ---
Subjective Subjective: Afebrile. He developed hematuria last night, apparently associated with bladder distention. His Eduardo was removed but a new Eduardo was apparently unable to be inserted and he is scheduled for the OR for cystoscopy later today. Objective Last 24 Hrs of Vital Signs/I&O Vital Signs Date Time Temp Pulse Resp B/P B/P Pulse O2 O2 Flow FiO2 Mean Ox Delivery Rate 10/23 629 97.2 87 20 116/68 97 10/22 2300 97.6 63 20 142/78 97 10/22 1448 98.1 63 20 146/70 93 10/22 1427 Nasal 2.0L Cannula 10/22 1207 71 140/80 Intake & Output 10/23 1600 10/23 0800 10/23 0000 Intake Total 650 600 Output Total 500 700 Balance 150 -100 Intake, IV 650 600 Intake, Oral 0 Number 2 Bowel Movements Output, Urine 500 700 Physical Exam Other Physical Findings: He is awake and alert in no acute distress Lungs are clear Heart regular rhythm with no murmur Abdomen is soft, nontender with positive bowel sounds Results Last 24 Hours of Lab Results: Laboratory Tests 10/23 613 Chemistry Sodium (137 - 145 mmol/L) 144 Potassium (3.5 - 5.1 mmol/L) 3.5 Chloride (98 - 107 mmol/L) 112 H Carbon Dioxide (22 - 30 mmol/L) 21 L Anion Gap (5 - 16) 11 BUN (9 - 20 mg/dL) 11 Creatinine (0.7 - 1.2 mg/dL) 0.8 Estimated GFR (>60 ml/min) > 60 BUN/Creatinine Ratio (7 - 25 %) 13.8 Hematology CBC w Diff NO MAN DIFF REQ WBC (4.8 - 10.8 /CUMM) 4.2 L RBC (4.70 - 6.10 /CUMM) 2.46 L Hgb (14.0 - 18.0 G/DL) 7.2 *L Hct (42 - 52 %) 21.3 L MCV (80.0 - 94.0 FL) 86.6 MCH (27.0 - 31.0 PG) 29.1 MCHC (33.0 - 37.0 G/DL) 33.6 RDW (11.5 - 14.5 %) 17.1 H Plt Count (130 - 400 /CUMM) 178 MPV (7.4 - 10.4 FL) 10.5 H Gran % (42.2 - 75.2 %) 87.0 H Lymphocytes % (20.5 - 51.1 %) 5.8 L Monocytes % (1.7 - 9.3 %) 6.7 Eosinophils % (0 - 5 %) 0.5 Basophils % (0.0 - 2.0 %) 0 Absolute Granulocytes (1.4 - 6.5 /CUMM) 3.7 Absolute Lymphocytes (1.2 - 3.4 /CUMM) 0.2 L Absolute Monocytes (0.10 - 0.60 /CUMM) 0.3 Absolute Eosinophils (0.0 - 0.7 /CUMM) 0 Absolute Basophils (0.0 - 0.2 /CUMM) 0 CSF PCR for HSV negative CSF RPR negative CSF PCR for JORGE virus and cryptococcal antigen pending CSF cytology negative Last 24 Hours of Lam Results: Urine culture October 20 greater than 100,000 colonies of yeast Assessment/Plan Impression: Stable, with temperatures remaining normal, on Ceftriaxone, begun 3 days ago by Urology because of concern for a urinary tract infection, with his urine culture positive for yeast, which most likely represents colonization secondary to his Eduardo catheter. His mental status has been waxing and waning and is of unclear etiology but may be secondary to underlying dementia. His recent CSF was negative for any evidence of infection, but did reveal 2 oligoclonal bands, of unclear significance, and would appreciate Neuro follow-up on this. Other issues include retroperitoneal, left inguinal and iliac lymphadenopathy seen on his CT scans but, as discussed with IR, none of these are felt to be amenable to aspiration. Metastatic prostate cancer is also a concern and a prostate biopsy could be obtained today if he is to have a cystoscopy. Suggestion: 1. Would pursue a prostate biopsy if/when he undergoes a cystoscopy 2. Follow-up CSF PCR for JORGE virus, cryptococcal antigen and AFB and fungal cultures 3. Neurology follow-up regarding the positive oligoclonal bands on his previous CSF 4. Discontinue Ceftriaxone 5. Would give Fluconazole 400 mg po 1 prior to his cystoscopy 6. Continue antiretroviral and PJP/MARCUS prophylaxis
--- NOTE | 2017-10-23 13:59 | PN- Urology ---
Surgical Brief Attending Note Brief Attending Note: PT WITH BLADDER PAIN: IN CLOT RETENTION THIS AM. UNABLE TO IRRIGATE AT BEDSIDE. PT NEEDS CYSTO-FULGURATION TODAY: WILL NEED CBI WITH NS POST-OP. RECOMMEND NO ANTI-COAGULATION FOR 3 DAYS. ABX POD 1, THEN HOLD ABX.
[2017-10-23 14:08] LABS: ABSOLUTE BASOPHIL COUNT 0 /CUMM (0.0-0.2); ABSOLUTE EOSINOPHIL COUNT 0 /CUMM (0.0-0.7); ABSOLUTE GRANULOCYTE CT 8.1 /CUMM (1.4-6.5); ABSOLUTE LYMPH COUNT 0.6 /CUMM (1.2-3.4); ABSOLUTE MONOCYTE COUNT 0.4 /CUMM (0.10-0.60); BASOPHIL % 0 % (0.0-2.0); EOSINOPHIL % 0.3 % (0-5); MEAN CORPUSCULAR HGB 28.9 PG (27.0-31.0); MEAN CORPUSCULAR HGB CONC 33.1 G/DL (33.0-37.0); MEAN CORPUSCULAR VOLUME 87.2 FL (80.0-94.0); MEAN PLATELET VOLUME 9.9 FL (7.4-10.4); PLATELET COUNT 200 /CUMM (130-400); RBC DISTRIBUTION WIDTH 17.1 % (11.5-14.5); RED BLOOD CELL CT 2.87 /CUMM (4.70-6.10)
[2017-10-23 14:16] LABS: WHITE BLOOD CELL COUNT 9.1 /CUMM (4.8-10.8)
--- NOTE | 2017-10-23 16:34 | Operative Report ---
Operative/Inv Procedure Report Surgery Date: 10/23/17 Name of Procedure: cystoscopy: evacuation of clot, TURP of bleeding prostatic tissue Pre-Operative Diagnosis: gross hematuria, clot retention, BPH with hemorrhagic prostate Post-Operative Diagnosis: same Estimated Blood Loss: 350cc old bladder clot. Surgeon/[place] Pilot: MD Julien, [facility] Anesthesia: moderate sedation Drains: 24fr. 2-way prabhakar with NS CBI Specimens: prostate chips. Complications: none Condition: improved-clear cbi running well. Operative/Procedure Note Note: The patient was taken to the operating room and placed on the OR table in supine position. Timeout was performed, with the pt. awake, to correctly identify the patient, anesthesia, procedure, and IV antibiotics, and other pertinent perioperative information. After adequate anesthesia and antibiotics, the old Prabhakar catheter was removed. The patient was then placed in lithotomy stirrups using yellowfin stirrups. The patient was then draped and prepped in the usual surgical fashion. A 26 Macedonian standard resectoscope sheath with a 30 angle lens and the 24 Macedonian loop was inserted into the urethra, and then advanced into the bladder without difficulty. A FEW small clots, and bladder stones, were noted in the bladder, and were Ellix evacuated out. With a clearer vision, the prostate was noted to have an irregular and ratty surface with severely coapting lobes. Additionally, the prostate was hypervascular consistent with regrowth. Upon entering the bladder, it was thoroughly and systematically surveyed revealing no evidence of tumor, no evidence of stone, both orifices were difficult to find due to the severe trabeculation, in their orthotopic position with clear yellow reflux. The resectoscope was then retracted to the level of the bob montanum. Under direct visualization the 24 Macedonian loop was then extended beyond the scope. Under direct visualization, and using the cutting current, the left lobe of the prostate was resected from the 2:00 to the 6 o'clock position to the level of the fibromuscular capsule. Using coag current, spot cauterization was performed in order to achieve good hemostasis of the prostate. The loop was then extended once again using cutting current to resect the right side of the prostate from the 10:00 to the 6 o'clock position to the level of the fibromuscular capsule. Spot cauterization using coag current was then performed in order to achieve good hemostasis. Maintaining the position of the resectoscope at the level of the vera montanum the apical tissue was resected as well on both sides. The external sphincter was preserved. The bladder was then re-entered via the resectoscope, and the prostate chips were irrigated out using tumey evacuation. Once all the prostate chips were removed, the bladder was re-evaluating and noted to have no untoward injury. Additionally, the prostate channel was noted to have good hemostasis, with a wide open channel. The resectoscope was removed with the bladder full. A 22 Macedonian couvalier three-way Prabhakar catheter was inserted without difficulty draining clear fluid. The bladder was again copiously irrigated via the prabhakar to ensure patency/ The 30 mL balloon was then filled, and continuous bladder irrigation with normal saline was initiated. Clear and easy drainage of NS from the main port was confirmed with CBI. All sponge needle and instrument count were correct at the end of the case. The patient tolerated the procedure well and was then taken to the recovery room in satisfactory condition. Findings: hemorrhagic prostate: requires TURP to control Discharge Disposition: PACU CC: Wing Victoria MD
[2017-10-23 23:33] VITALS: BP 104/74
[2017-10-24 07:05] VITALS: BP 122/64
--- NOTE | 2017-10-24 10:24 | PN- Housestaff ---
Ish BRAVO,Lupis 10/24/17 1023: Subjective Follow-up For: HIV AMS Hematuria Rectal bleeding Anemia Subjective: Patient was seen and examined today. Patient s is alert and oriented 2. Patient reports no pain. Reports feeling like he needs to urinate. Denies any chest pain, shortness of breath, nausea/vomiting, abdominal pain, lightheadedness/dizziness. Overnight patient was reported to have a bloody bowel movement. Patient had a cystoscopy with Dr. Victoria yesterday. Review of Systems Constitutional: Reports: no symptoms. Cardiovascular: Reports: no symptoms. Respiratory: Reports: no symptoms. Gastrointestinal: Reports: no symptoms. Genitourinary: Reports: no symptoms. Objective Last 24 Hrs of Vital Signs/I&O Vital Signs Date Time Temp Pulse Resp B/P B/P Pulse O2 O2 Flow FiO2 Mean Ox Delivery Rate 10/24 1055 70 122/64 10/24 1053 70 122/64 10/24 08 96 Nasal 2.0L Cannula 10/24 0705 98.9 70 20 122/64 96 Nasal Cannula 10/24 0000 Nasal 2.0L Cannula 10/23 2333 98.9 70 22 104/74 98 10/23 2024 80 140/78 10/23 2022 80 140/78 Intake & Output 10/24 1600 10/24 0800 10/24 0000 Intake Total 720 420 Output Total 4051 Balance -3331 420 Intake, IV 600 300 Intake, Oral 120 120 Output, Stool 1 Output, Urine 4050 Physical Exam General Appearance: Alert, Cooperative, No Acute Distress Skin Temp/Moisture Exam: Warm/Dry HEENT: Atraumatic, Mucous Membr. moist/pink, thrush on tongue Cardiovascular: Regular Rate, Normal S1, Normal S2 Lungs: Normal Air Movement Abdomen: Normal Bowel Sounds, Soft, No Tenderness Extremities: No Clubbing, No Cyanosis, No Edema, Normal Pulses, No Tenderness/ Swelling Current Medications: Current Medications Sig/Juma Start time Last Medication Dose Route Stop Time Status Admin Acetaminophen 1,000 MG Q6P PRN 10/15 1730 AC 10/18 N/A 1 UNIT IV 1653 Ammonium Lactate 1 DILLAN BID 10/10 1000 AC 10/24 TOP 1053 Atorvastatin Calcium 80 MG 1700 10/14 1700 AC 10/23 PO 2020 Ceftriaxone Sodium 1,000 MG 10/24 AC IV Ceftriaxone Sodium 1,000 MG DAILY 10/20 1630 DC 10/23 IV 2025 Cholecalciferol 1,000 IU DAILY 10/12 1445 AC 10/23 PO 202 Dextrose/Sodium 1,000 ML Q13H 10/24 1315 AC Chloride IV Famotidine 20 MG DAILY 10/14 1101 AC 10/24 PO 1053 Heparin Sodium 5,000 UNIT Q8 10/10 0600 DC 10/22 (Porcine) SC 1300 Insulin Aspart 0 Q4 10/13 0200 AC 10/24 SC 1043 Metoprolol Tartrate 50 MG BID 10/18 2359 AC 10/23 PO 2024 Multivitamins 1 TAB DAILY 10/12 1530 AC 10/23 PO 2024 Ondansetron HCl 4 MG Q6P PRN 10/11 1330 AC 10/22 IV 1210 Pentoxifylline 400 MG DAILY 10/10 1000 AC 10/23 PO 2024 Potassium Chloride 20 MEQ Q13H 10/21 1200 DC 10/24 Dextrose/Sodium 1,000 ML IV 0519 Chloride Tamsulosin HCl 0.4 MG DAILY 10/10 1000 AC 10/24 PO 1053 Last 24 Hrs of Lab/Lam Results Last 24 Hrs of Labs/Mics: Laboratory Tests 10/24/17 1005: CBC w Diff NO MAN DIFF REQ, RBC 2.14 L, MCV 87.0, MCH 28.7, MCHC 32.9 L, RDW 17.3 H, MPV 10.0, Gran % 77.1 H, Lymphocytes % 15.6 L, Monocytes % 5.8, Eosinophils % 1.3, Basophils % 0.2, Absolute Granulocytes 4.2, Absolute Lymphocytes 0.8 L, Absolute Monocytes 0.3, Absolute Eosinophils 0.1, Absolute Basophils 0 10/24/17 0615: Anion Gap 9, Estimated GFR > 60, BUN/Creatinine Ratio 10.0 Lines/Diet/Fluids Eduardo Still Needed? Yes Assessment/Plan Assessment: 82-year-old male with past medical history significant for coronary artery disease status post [place], stent placement on dual antiplatelet regimen, HIV with CD4 count 82 on prophylactic antibiotics Bactrim, azithromycin, Prezcobix, dolutegravir, depression, hypertension, type 2 diabetes mellitus, GERD, BPH, recently discharged for fever of unknown origin, retroperitoneal lymphadenopathy questionable lymphoma presenting to the emergency room for left hip pain status post fall x2. Problem List: #Anemia Patient's H&H this morning decreased from 8.3 to 6.1. Patient had one reported bloody bowel movement overnight * Patient to receive 1 pRBC transfusion with repeat CBC after * Anemia may be secondary to multiple factors including ongoing hematuria, however acute change with blood bowel movement is concerning for possible GI bleed. Patient is currently hemodynamically stable. GI consulted for further recommendations. Will pursue conservative measures at this point. Patient should be transfused to maintain an H&H > 8/24. Patient had slightly decreased B12. B12 was supplemented. * Continue to monitor H&H #Hypernatremia * changed D5NS with KCl to D5 1/2 NS with KCl * continue to monitor with repeat BEP this evening #Altered mental status/hematuria * Patient was transferred to [facility] for evaluation of possible stroke/sudden onset of altered mental status. CT Head showed possible evolving infarct however MRI was negative. Neurology consulted did not warrant TPA treatment as no neurological deficit and unkonw time of onset. Patient is more awake, alert and oriented 2. He does have periods of confusion on and off. * Fall precaution. * Patient has hematuria during the hospital course and renal ultrasound was taken which showed echogenic material. Hence continuous bladder irrigation was started. A week ago patient had clear urine and hence continuous bladder irrigation was stopped. Dr. Victoria suggested to keep the Eduardo for a week. * Since two days prior patient is having hematuria with abdominal distention. Dr. Victoria tried to insert Eduardo and felt some resistance and decreased urine output. Hence the procedure was deferred and plan to take him to or for cystoscopy to cauterize any bleeding and to insert a new Eduardo. Patient had a cysto-fulgration the day prior. Today patient's urine is clear yellow with minimal clots. in tube. Patient should continue antibiotic therapy today and then discontinued per urology recommendations. Anticoagulation should be held for 2 more days. * Patient is on IV ceftriaxone per Urology * Patient hemoglobin today 7.2. We will repeat one in no and if it is less than 8 we will transfuse 1 unit of blood transfusion today. * Patient daughter is involved in care patient's medical condition is updated until today. #Acute renal failure, likely from contrast use-which is resolved now. * Patient has acute renal failure secondary to contrast-induced nephropathy. We will continue IV fluids [patient refuses food/medication for past 2 days] and monitor his renal parameters. * Nephrology consult if worsening. * Avoid nephrotoxins. * Avoid hydrochlorothiazide #fall * Hip x-ray, pelvic x-ray, lumbar spine x-ray, head/ cervical spine CT negative for acute fractures VitD /B12 levels low. On vitamin D and calcium supplementation. * Continue vit D and multivtiamin supplmentation * PT recommends STR #FUO * Resolved. Ucx and blood cx , blood cultures, sputum culture thus far negative * Rapid flu negative. IR guided lumbar puncture done. We will follow up with cultures. * CT Ab/pelvis w/ contrast did not show active infectious source including collection. * IV antibiotics per urology and continue azithromycin and Bactrim for prophylaxis. * continue HIV medications * Tylenol 650mg once for his spiked fever this morning. * Patient urine culture is growing yeast. We will give him 1 dose of fluconazole 400 mg IV prior infectious disease. #HIV * Last CD4 count 82 * continue prescobix and dolutragravir daily. * continue Bactrim, azithromycin, valacyclovir #DM * We will continue NovoLog coverage every 4 hours. #Coronary artery disease status post stent placement -continue aspirin, statin, Plavix #Peripheral vascular disease -continue pentoxifylline 400 mg daily #Depression * Lexapro was discontinued per psychiatry given his prolonged QTC. She was seen by psychiatry yesterday who suggested that his altered mental status can be due to underlying dementia with superimposed delirium. Advised to avoid delirium triggers. Psychiatry follow-up appreciated. #Hypertension * continue metoprolol. * hold hydrochlorothiazide #GERD * continue omeprazole #BPH s/p TURP * continue tamsulosin #Insomnia * continue zolpidem as needed for sleep #FULL CODE #DVT prophylaxis subcutaneous heparin Problem List: 1. Confusion 2. Hematuria 3. Anemia 4. Rectal bleeding Pain Ratin Pain Location: n/a Pain Goal: Remain pain free Pain Plan: per pain pathway Tomorrow's Labs & Rationales: cbc- anemia bep- hypernatremia Anthony Cordova MD 10/24/17 2212: Attending Review Statement Attending Statement Attending Statement: examined this patient, discuss w/resident/PA/COBOL APPLICATION DEVELOPER, agreed w/resident/PA/COBOL APPLICATION DEVELOPER, reviewed EMR data (avail), discussed with nursing, amended to note Attending Assessment/Plan: The patient was seen and discussed with house staff. Appreciate endocrinology, cardiology and GI evaluations. Has CBI going, however no bleeding. GI states patient declines colonoscopy (brown heme + stool). Will transfuse and follow H/ H. Continue to hold anti-coagulation at present.
[2017-10-24 11:03] LABS: ABSOLUTE BASOPHIL COUNT 0 /CUMM (0.0-0.2); ABSOLUTE EOSINOPHIL COUNT 0.1 /CUMM (0.0-0.7); ABSOLUTE GRANULOCYTE CT 4.2 /CUMM (1.4-6.5); ABSOLUTE LYMPH COUNT 0.8 /CUMM (1.2-3.4); ABSOLUTE MONOCYTE COUNT 0.3 /CUMM (0.10-0.60); WHITE BLOOD CELL COUNT 5.4 /CUMM (4.8-10.8)
[2017-10-24 11:13] LABS: BASOPHIL % 0.2 % (0.0-2.0); EOSINOPHIL % 1.3 % (0-5); GRANULOCYTE % 77.1 % (42.2-75.2); MEAN CORPUSCULAR HGB 28.7 PG (27.0-31.0); MEAN CORPUSCULAR HGB CONC 32.9 G/DL (33.0-37.0); PLATELET COUNT 207 /CUMM (130-400); RBC DISTRIBUTION WIDTH 17.3 % (11.5-14.5)
[2017-10-24 11:20] LABS: HEMATOCRIT 18.6 % (42-52); RED BLOOD CELL CT 2.14 /CUMM (4.70-6.10)
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
--- NOTE | 2017-10-24 15:16 | PN- Diabetes ---
Assessment/Plan Assessment: He remains confused and lethargic. He is eating very little at this point. At present he is on D5 normal saline +20 mEq KCl at 75 cc/h. His serum sodium was 148. He is also on NovoLog coverage every 4 hours for sugar above 150. Most recent sugars are in a good range. . FSGs were 110, 163, 167, 123, 165, 167 and 213. Plan: continue current Novolog coverage every 4 hours; change D5NS with Kcl to D5 1/2 NS with Kcl; monitor FSGs and electrolytes; will follow. Subjective Subjective: Patient is sleeping. Objective Last 24 Hrs of Vital Signs/I&O Vital Signs Date Time Temp Pulse Resp B/P B/P Pulse O2 O2 Flow FiO2 Mean Ox Delivery Rate 10/24 1055 70 122/64 10/24 1053 70 122/64 10/24 08 96 Nasal 2.0L Cannula 10/24 07 98.9 70 20 122/64 96 Nasal Cannula 10/24 0000 Nasal 2.0L Cannula 10/23 2333 98.9 70 22 104/74 98 10/23 2024 80 140/78 10/23 2022 80 140/78 Intake & Output 10/24 1600 10/24 0800 10/24 0000 Intake Total 720 420 Output Total 4051 Balance -3331 420 Intake, IV 600 300 Intake, Oral 120 120 Output, Stool 1 Output, Urine 4050 Findings Pertinent Lab/Lam Results: Laboratory Tests 10/24 10/24 1005 0615 Chemistry Sodium (137 - 145 mmol/L) 148 H Potassium (3.5 - 5.1 mmol/L) 3.9 Chloride (98 - 107 mmol/L) 112 H Carbon Dioxide (22 - 30 mmol/L) 27 Anion Gap (5 - 16) 9 BUN (9 - 20 mg/dL) 9 Creatinine (0.7 - 1.2 mg/dL) 0.9 Estimated GFR (>60 ml/min) > 60 BUN/Creatinine Ratio (7 - 25 %) 10.0 Hematology CBC w Diff NO MAN DIFF REQ WBC (4.8 - 10.8 /CUMM) 5.4 RBC (4.70 - 6.10 /CUMM) 2.14 L Hgb (14.0 - 18.0 G/DL) 6.1 *L Hct (42 - 52 %) 18.6 *L MCV (80.0 - 94.0 FL) 87.0 MCH (27.0 - 31.0 PG) 28.7 MCHC (33.0 - 37.0 G/DL) 32.9 L RDW (11.5 - 14.5 %) 17.3 H Plt Count (130 - 400 /CUMM) 207 MPV (7.4 - 10.4 FL) 10.0 Gran % (42.2 - 75.2 %) 77.1 H Lymphocytes % (20.5 - 51.1 %) 15.6 L Monocytes % (1.7 - 9.3 %) 5.8 Eosinophils % (0 - 5 %) 1.3 Basophils % (0.0 - 2.0 %) 0.2 Absolute Granulocytes (1.4 - 6.5 /CUMM) 4.2 Absolute Lymphocytes (1.2 - 3.4 /CUMM) 0.8 L Absolute Monocytes (0.10 - 0.60 /CUMM) 0.3 Absolute Eosinophils (0.0 - 0.7 /CUMM) 0.1 Absolute Basophils (0.0 - 0.2 /CUMM) 0
[2017-10-24 15:25] VITALS: BP 130/66
[2017-10-24 22:04] VITALS: BP 140/60
[2017-10-24 23:01] LABS: ABSOLUTE BASOPHIL COUNT 0 /CUMM (0.0-0.2); ABSOLUTE EOSINOPHIL COUNT 0.1 /CUMM (0.0-0.7); ABSOLUTE GRANULOCYTE CT 3.8 /CUMM (1.4-6.5); ABSOLUTE LYMPH COUNT 0.6 /CUMM (1.2-3.4); ABSOLUTE MONOCYTE COUNT 0.3 /CUMM (0.10-0.60); BASOPHIL % 0.3 % (0.0-2.0); EOSINOPHIL % 1.7 % (0-5); GRANULOCYTE % 78.9 % (42.2-75.2); HEMATOCRIT 22.5 % (42-52); MEAN CORPUSCULAR HGB 28.4 PG (27.0-31.0); MEAN CORPUSCULAR HGB CONC 32.8 G/DL (33.0-37.0); MEAN CORPUSCULAR VOLUME 86.7 FL (80.0-94.0); MEAN PLATELET VOLUME 9.9 FL (7.4-10.4); PLATELET COUNT 205 /CUMM (130-400); RBC DISTRIBUTION WIDTH 16.4 % (11.5-14.5); WHITE BLOOD CELL COUNT 4.8 /CUMM (4.8-10.8)
[2017-10-25 07:02] VITALS: BP 150/62
[2017-10-25 07:37] LABS: ABSOLUTE BASOPHIL COUNT 0 /CUMM (0.0-0.2); ABSOLUTE EOSINOPHIL COUNT 0.1 /CUMM (0.0-0.7); ABSOLUTE MONOCYTE COUNT 0.3 /CUMM (0.10-0.60); HEMATOCRIT 21.8 % (42-52); MEAN PLATELET VOLUME 9.7 FL (7.4-10.4)
[2017-10-25 07:49] LABS: ABSOLUTE GRANULOCYTE CT 4.3 /CUMM (1.4-6.5); ABSOLUTE LYMPH COUNT 0.8 /CUMM (1.2-3.4); BASOPHIL % 0.3 % (0.0-2.0); EOSINOPHIL % 1.3 % (0-5); GRANULOCYTE % 78.5 % (42.2-75.2); MEAN CORPUSCULAR HGB CONC 33.3 G/DL (33.0-37.0); PLATELET COUNT 246 /CUMM (130-400); WHITE BLOOD CELL COUNT 5.5 /CUMM (4.8-10.8)
--- NOTE | 2017-10-25 09:44 | PN- Housestaff ---
Sofía BRAVO,Kenny 10/25/17 0944: Subjective Follow-up For: AMS Hematuria, on CBI, s/p cystoscopy PUO, resolved HIV, on HAART Rectal bleeding, microscopic Anemia Complaints: pt unable to provide hx, confused Tele-Events Since Last Visit: sinus rhythm, rate controlled 60s-70s. Subjective: Pt followed up and examined by me today. His mentation waxes and wanes, and was confused although responsive this morning. [place] in place. CBI running, no gross hematuria. No more bleeding events reported to me overnight. Review of Systems Constitutional: Reports: no symptoms. Objective Last 24 Hrs of Vital Signs/I&O Vital Signs Date Time Temp Pulse Resp B/P B/P Pulse O2 O2 Flow FiO2 Mean Ox Delivery Rate 10/25 2203 98.7 65 20 130/74 94 10/25 1430 98.9 67 18 142/60 96 Room Air 10/25 1116 71 150/62 10/25 0702 97.8 71 16 150/62 96 Nasal Cannula Intake & Output 10/25 1600 10/25 0800 10/25 0000 Intake Total 200 770 760 Output Total 1150 1500 Balance -950 770 -740 Intake, Blood 350 Product Intake, IV 650 300 Intake, Oral 200 120 110 Output, Urine 1150 1500 Physical Exam General Appearance: Alert, Cooperative, No Acute Distress, confused Other Physical Findings: Cardiovascular: Regular Rate, Normal S1, Normal S2, No Murmurs Lungs: Clear to Auscultation, Normal Air Movement Abdomen: Normal Bowel Sounds, Soft, No Tenderness, 3-way Eduardo in situ for CBI with no gross hematuria. Neurological: Normal Speech but confused, Strength at 5/5 X4 Ext, Normal Tone, Sensation Intact Current Medications: Current Medications Sig/Juma Start time Last Medication Dose Route Stop Time Status Admin Acetaminophen 1,000 MG Q6P PRN 10/15 1730 AC 10/18 N/A 1 UNIT IV 1653 Ammonium Lactate 1 DILLAN BID 10/10 1000 AC 10/25 TOP 2213 Atorvastatin Calcium 80 MG 1700 10/14 1700 AC 10/23 PO 2019 Ceftriaxone Sodium 1,000 MG 10/24 AC 10/24 IV 2109 Cholecalciferol 1,000 IU DAILY 10/12 1445 AC 10/23 PO 2024 Cyanocobalamin 1,000 MCG DAILY 10/25 1000 AC PO Dextrose/Sodium 1,000 ML Q13H 10/24 1315 AC 10/25 Chloride IV 0258 Famotidine 20 MG DAILY 10/14 1101 AC 10/25 PO 1117 Insulin Aspart 0 Q4 10/13 0200 AC 10/25 SC 0638 Metoprolol Tartrate 50 MG BID 10/18 2359 AC 10/25 PO 2210 Multivitamins 1 TAB DAILY 10/12 1530 AC 10/23 PO 2025 Nystatin 5 ML 4 TIMES/DAY 10/24 1504 AC 10/25 PO 2210 Ondansetron HCl 4 MG Q6P PRN 10/11 1330 AC 10/22 IV 1210 Pentoxifylline 400 MG DAILY 10/10 1000 AC 10/25 PO 1117 Tamsulosin HCl 0.4 MG DAILY 10/10 1000 AC 10/25 PO 1116 Last 24 Hrs of Lab/Lam Results Last 24 Hrs of Labs/Mics: Laboratory Tests 10/25/17 0658: Anion Gap 7, Estimated GFR > 60, BUN/Creatinine Ratio 7.5, CBC w Diff NO MAN DIFF REQ, RBC 2.50 L, MCV 87.0, MCH 29.0, MCHC 33.3, RDW 17.0 H, MPV 9.7, Gran % 78.5 H, Lymphocytes % 13.7 L, Monocytes % 6.2, Eosinophils % 1.3, Basophils % 0.3, Absolute Granulocytes 4.3, Absolute Lymphocytes 0.8 L, Absolute Monocytes 0.3, Absolute Eosinophils 0.1, Absolute Basophils 0 10/24/175: Anion Gap 9, Estimated GFR > 60, BUN/Creatinine Ratio 8.8, CBC w Diff NO MAN DIFF REQ, RBC 2.60 L, MCV 86.7, MCH 28.4, MCHC 32.8 L, RDW 16.4 H, MPV 9.9, Gran % 78.9 H, Lymphocytes % 12.9 L, Monocytes % 6.2, Eosinophils % 1.7, Basophils % 0.3, Absolute Granulocytes 3.8, Absolute Lymphocytes 0.6 L, Absolute Monocytes 0.3, Absolute Eosinophils 0.1, Absolute Basophils 0 Assessment/Plan Assessment: 82-year-old male with past medical history significant for coronary artery disease status post TN, stent placement on dual antiplatelet regimen, HIV with CD4 count 82 on prophylactic antibiotics Bactrim, azithromycin, Prezcobix, dolutegravir, depression, hypertension, type 2 diabetes mellitus, GERD, BPH, recently discharged for fever of unknown origin, retroperitoneal lymphadenopathy questionable lymphoma presenting to the emergency room for left hip pain status post fall x2. He is currently being managed in tele floor for the management of following issues: #Altered mental status * Patient was transferred to tele for evaluation of possible stroke/sudden onset of altered mental status. CT Head showed possible evolving infarct however MRI was negative. Neurology consulted did not warrant TPA treatment as no focal neurological deficit and unkonw time of onset. Patient is more awake, alert and oriented 2. He does have periods of confusion on and off. * Differentials after ruling out CAFE ATTENDANT infections (Toxo and Cryptococcus test negative) and metabolic abnormalities remain HIV related dementia. Still awaiting * Fall precaution. #Hematuria * Patient has hematuria during the hospital course and renal ultrasound was taken which showed echogenic material. Hence continuous bladder irrigation was started. A week ago patient had clear urine and hence continuous bladder irrigation was stopped. Dr. Victoria suggested to keep the Eduardo for a week. * Patient had hematuria with blood leakage via urethral meatus and with abdominal distention. Dr. Victoria tried to insert Eduardo and after feeling some resistance. Decision for cystoscopy in the OR and to cauterize any bleeding points was made after discussing with his daughter and carried out accordingly. Eduadro with CBI placed again. There is no gross hematuria today. * Patient is on IV ceftriaxone per Urology. EMR not showing other days of abx administration. need to follow up on this. * Patient hemoglobin today 7.3. One unit PRBC ordered to keep Hb greater than 8. * Patient daughter is closesly involved in care of patient's medical condition is regularly updated. #Acute renal failure, likely from contrast use- resolved * Patient had acute renal failure, likely secondary to contrast-induced nephropathy. We are continuing IV fluids [patient has been refusing food/ medication on/off] and monitor his renal parameters. * Plan for Nephrology consult if worsening. * Avoid nephrotoxins. * Avoid hydrochlorothiazide #fall, no fractures. * Hip x-ray, pelvic x-ray, lumbar spine x-ray, head/ cervical spine CT negative for acute fractures * VitD /B12 levels low. * Continue vit D, calcium, and multivtiamin supplmentation * PT recommends STR #FUO, afebrile now. * Resolved. Ucx and blood cx , blood cultures, sputum culture so far negative * Rapid flu negative. IR guided lumbar puncture done. We will follow up with cultures. (fungal, AFB, regular bacteriology) * CT Ab/pelvis w/ contrast did not show active infectious source including collection. * IV antibiotics per urology and continue azithromycin and Bactrim for prophylaxis. * Continuing HIV medications (patient's own) * Patient urine culture grew yeast. Thus we gave him one dose of IV Fluconazole 400 mg prior to cystoscopy per infectious disease consult. #HIV * Last CD4 count 82 * continue prescobix and dolutragravir daily. * continue Bactrim, azithromycin. #DM * We will continue NovoLog coverage every 4 hours. * Endo on board, blood sugar under control now. * Na 143 this AM, was 148 on 10/24/17 #Coronary artery disease status post stent placement -continue statin, but ASA and Plavix has been hold #Peripheral vascular disease -continue pentoxifylline 400 mg daily #Depression/?dementia/?delirium * Lexapro was discontinued per psychiatry given his prolonged QTc. He was seen by psychiatry service who suggested that his altered mental status can be due to underlying dementia with superimposed delirium. Advised to avoid delirium triggers. Psychiatry follow-up appreciated. #Hypertension * continue metoprolol * holding hydrochlorothiazide #GERD * continue omeprazole #BPH s/p TURP * continue tamsulosin, CBI #Insomnia * continue zolpidem PRN for sleep #Code status: FULL CODE. Had multiple conversations with his daughter regarding the prognosis of the patient's condition. She is aware of the guarded prognosis, and wants to go ahead with treatment for now. #Diet: CC2, mechanical ground and nectar thick consistency #DVT prophylaxis subcutaneous heparin stopp due to hematuria. Now only on ALPS. Problem List: 1. Confusion 2. Altered mental status 3. Hematuria 4. Fever of unknown origin 5. HIV positive Pain Ratin Pain Location: - Pain Goal: Pain 4 or less Pain Plan: prn Tomorrow's Labs & Rationales: CBC, BEP Anthony Cordova MD 10/25/17 2111: Attending MD Review Statement Attending Statement Attending MD Statement: examined this patient, discuss w/resident/PA/FOOD PRODUCTION ASSOCIATE, agreed w/resident/PA/FOOD PRODUCTION ASSOCIATE, discussed with family, reviewed EMR data (avail), amended to note Attending Assessment/Plan: The patient was seen and discussed with house staff and daughter. Still some confusion. CBI in place and urine appears clear. Will transfuse to get Hgb > 8. No colonoscopy per patient and daughter. Dr. Victoria to follow-up tomorrow and hopefully remove CBI. Will need to make decision regarding restarting anti- coagulation pending urology/Cardiology follow-up.
[2017-10-25 14:30] VITALS: BP 142/60
--- NOTE | 2017-10-25 15:10 | PN- Diabetes ---
Assessment/Plan Assessment: Patient is awake. But he is confused and agitated. His po intake has been poor. He is on D51/2 NS at 75 ml/hour. Repeat sodium was 143 this morning which is better. Patient is on Novolog coverage every 4 hours and his FSGs were 121, 137, 188 and 115. Plan: continue the current insulin regimen for now; monitor FSGs and electrolytes. will follow. Subjective Subjective: His PO intake is poor. Objective Last 24 Hrs of Vital Signs/I&O Vital Signs Date Time Temp Pulse Resp B/P B/P Pulse O2 O2 Flow FiO2 Mean Ox Delivery Rate 10/25 1430 98.9 67 18 142/60 96 Room Air 10/25 1116 71 150/62 10/25 0702 97.8 71 16 150/62 96 Nasal Cannula 10/24 2204 98.5 67 16 140/60 97 Nasal 2.0L Cannula 10/24 2108 80 120/72 10/24 1525 97.5 67 16 130/66 99 Nasal 2.0L Cannula Intake & Output 10/25 1600 10/25 0800 10/25 0000 Intake Total 770 760 Output Total 1150 1500 Balance -1150 770 -740 Intake, Blood 350 Product Intake, IV 650 300 Intake, Oral 120 110 Output, Urine 1150 1500 Findings Pertinent Lab/Lam Results: Laboratory Tests 10/25 10/24 0658 2235 Chemistry Sodium (137 - 145 mmol/L) 143 144 Potassium (3.5 - 5.1 mmol/L) 3.5 3.5 Chloride (98 - 107 mmol/L) 108 H 110 H Carbon Dioxide (22 - 30 mmol/L) 28 26 Anion Gap (5 - 16) 7 9 BUN (9 - 20 mg/dL) 6 L 7 L Creatinine (0.7 - 1.2 mg/dL) 0.8 0.8 Estimated GFR (>60 ml/min) > 60 > 60 BUN/Creatinine Ratio (7 - 25 %) 7.5 8.8 Hematology CBC w Diff NO MAN DIFF REQ NO MAN DIFF REQ WBC (4.8 - 10.8 /CUMM) 5.5 4.8 RBC (4.70 - 6.10 /CUMM) 2.50 L 2.60 L Hgb (14.0 - 18.0 G/DL) 7.3 *L 7.4 *L Hct (42 - 52 %) 21.8 L 22.5 L MCV (80.0 - 94.0 FL) 87.0 86.7 MCH (27.0 - 31.0 PG) 29.0 28.4 MCHC (33.0 - 37.0 G/DL) 33.3 32.8 L RDW (11.5 - 14.5 %) 17.0 H 16.4 H Plt Count (130 - 400 /CUMM) 246 205 MPV (7.4 - 10.4 FL) 9.7 9.9 Gran % (42.2 - 75.2 %) 78.5 H 78.9 H Lymphocytes % (20.5 - 51.1 %) 13.7 L 12.9 L Monocytes % (1.7 - 9.3 %) 6.2 6.2 Eosinophils % (0 - 5 %) 1.3 1.7 Basophils % (0.0 - 2.0 %) 0.3 0.3 Absolute Granulocytes (1.4 - 6.5 /CUMM) 4.3 3.8 Absolute Lymphocytes (1.2 - 3.4 /CUMM) 0.8 L 0.6 L Absolute Monocytes (0.10 - 0.60 /CUMM) 0.3 0.3 Absolute Eosinophils (0.0 - 0.7 /CUMM) 0.1 0.1 Absolute Basophils (0.0 - 0.2 /CUMM) 0 0
[2017-10-25 22:03] VITALS: BP 130/74
[2017-10-26 01:53] LABS: ABSOLUTE BASOPHIL COUNT 0 /CUMM (0.0-0.2); ABSOLUTE EOSINOPHIL COUNT 0.1 /CUMM (0.0-0.7); ABSOLUTE GRANULOCYTE CT 4.3 /CUMM (1.4-6.5); ABSOLUTE LYMPH COUNT 0.6 /CUMM (1.2-3.4); ABSOLUTE MONOCYTE COUNT 0.3 /CUMM (0.10-0.60); BASOPHIL % 0.3 % (0.0-2.0); GRANULOCYTE % 80.9 % (42.2-75.2); HEMATOCRIT 26.6 % (42-52); MEAN CORPUSCULAR HGB 29.1 PG (27.0-31.0); MEAN CORPUSCULAR HGB CONC 33.6 G/DL (33.0-37.0); MEAN CORPUSCULAR VOLUME 86.7 FL (80.0-94.0); MEAN PLATELET VOLUME 9.4 FL (7.4-10.4); PLATELET COUNT 269 /CUMM (130-400); RBC DISTRIBUTION WIDTH 15.3 % (11.5-14.5); RED BLOOD CELL CT 3.07 /CUMM (4.70-6.10); WHITE BLOOD CELL COUNT 5.3 /CUMM (4.8-10.8)
--- NOTE | 2017-10-26 07:01 | PN- Housestaff ---
Emiliano BRAVO,Ana Luisa 10/26/17 0701: Subjective Follow-up For: HIV, new onset atrial fibrillation, hematuria falling TRUP Complaints: no complaints Subjective: Patient was seen and examined at bedside. He was lying in his bed comfortably. No overnight events. He has one-on-one sitter because he was trying to pull the Eduardo. He is alert, awake, oriented 2. He is confused on and off. Able to follow commands. He refuses breakfast today. He denies chest pain, chest pressure, nausea, vomiting, abdominal pain. Review of Systems Constitutional: Reports: no symptoms. Cardiovascular: Reports: no symptoms. Respiratory: Reports: no symptoms. Gastrointestinal: Reports: no symptoms. Genitourinary: Reports: no symptoms. Musculoskeletal: Reports: no symptoms. Objective Last 24 Hrs of Vital Signs/I&O Vital Signs Date Time Temp Pulse Resp B/P B/P Pulse O2 O2 Flow FiO2 Mean Ox Delivery Rate 10/26 0717 98.4 71 18 138/76 96 Room Air 10/25 2210 67 130/74 10/25 2203 98.7 65 20 130/74 94 10/25 1430 98.9 67 18 142/60 96 Room Air 10/25 1116 71 150/62 Intake & Output 10/26 1600 10/26 0800 10/26 0000 Intake Total 600 430 Output Total 2850 Balance -2250 430 Intake, Blood 350 Product Intake, IV 600 Intake, Oral 0 80 Output, Urine 2850 Physical Exam General Appearance: Alert, Cooperative, No Acute Distress, ORIENTED 2 Skin: No Rashes, No Breakdown HEENT: PERRLA Neck: Supple, No JVD Cardiovascular: Normal S1, Normal S2, No Murmurs Lungs: Normal Air Movement Abdomen: Soft, No Tenderness, No Hepatospenomegaly Neurological: Strength at 5/5 X4 Ext Extremities: No Edema Vascular: Normal Pulses Current Medications: Current Medications Sig/Juma Start time Last Medication Dose Route Stop Time Status Admin Acetaminophen 1,000 MG Q6P PRN 10/15 1730 AC 10/18 N/A 1 UNIT IV 1653 Ammonium Lactate 1 DILLAN BID 10/10 1000 AC 10/25 TOP 2213 Atorvastatin Calcium 80 MG 1700 10/14 1700 AC 10/23 PO 2020 Azithromycin 1,200 MG ONCE ONE 10/26 0745 DC PO 10/26 0746 Ceftriaxone Sodium 1,000 MG 2000 10/24 1999 DC 10/25 IV 2255 Cholecalciferol 1,000 IU DAILY 10/12 1445 10/23 PO 2024 Cyanocobalamin 1,000 MCG DAILY 10/25 1000 AC PO Dextrose/Sodium 1,000 ML Q13H 10/24 1315 AC 10/26 Chloride IV 0536 Famotidine 20 MG DAILY 10/14 1101 AC 10/25 PO 1117 Insulin Aspart 0 TIDAC 10/26 1200 AC SC Insulin Aspart 0 Q4 10/13 0200 DC 10/25 SC 0638 Metoprolol Tartrate 50 MG BID 10/18 2359 AC 10/25 PO 2210 Multivitamins 1 TAB DAILY 10/12 1530 AC 10/23 PO 2024 Nystatin 5 ML 4 TIMES/DAY 10/24 1504 AC 10/25 PO 221 Ondansetron HCl 4 MG Q6P PRN 10/11 1330 AC 10/22 IV 1210 Pentoxifylline 400 MG DAILY 10/10 1000 AC 10/25 PO 1117 Tamsulosin HCl 0.4 MG DAILY 10/10 1000 AC 10/25 PO 1116 Trimethoprim/ 1 TAB 10/26 1000 AC Sulfamethoxazole PO Last 24 Hrs of Lab/Lam Results Last 24 Hrs of Labs/Mics: Laboratory Tests 10/26/17 0858: Sodium Pending, Potassium Pending, Chloride Pending, Carbon Dioxide Pending, Anion Gap Pending, BUN Pending, Creatinine Pending, BUN/Creatinine Ratio Pending 10/26/17 0644: CBC w Diff NO MAN DIFF REQ, RBC 3.08 L, MCV 87.8, MCH 29.6, MCHC 33.7, RDW 15.8 H, MPV 9.4, Gran % 77.4 H, Lymphocytes % 13.7 L, Monocytes % 6.3, Eosinophils % 2.0, Basophils % 0.6, Absolute Granulocytes 4.2, Absolute Lymphocytes 0.7 L, Absolute Monocytes 0.3, Absolute Eosinophils 0.1, Absolute Basophils 0 10/26/17 0120: Anion Gap 10, Estimated GFR > 60, BUN/Creatinine Ratio 7.1, Prealbumin Pending, CBC w Diff NO MAN DIFF REQ, RBC 3.07 L, MCV 86.7, MCH 29.1, MCHC 33.6, RDW 15.3 H, MPV 9.4, Gran % 80.9 H, Lymphocytes % 11.2 L, Monocytes % 5.6, Eosinophils % 2.0, Basophils % 0.3, Absolute Granulocytes 4.3, Absolute Lymphocytes 0.6 L, Absolute Monocytes 0.3, Absolute Eosinophils 0.1, Absolute Basophils 0 Lines/Diet/Fluids Restraints: SITTER Assessment/Plan Assessment: 82-year-old male with past medical history significant for coronary artery disease status post MO, stent placement on dual antiplatelet regimen, HIV with CD4 count 82 on prophylactic antibiotics Bactrim, azithromycin, Prezcobix, dolutegravir, depression, hypertension, type 2 diabetes mellitus, GERD, BPH, recently discharged for fever of unknown origin, retroperitoneal lymphadenopathy questionable lymphoma presenting to the emergency room for left hip pain status post fall x2. He is currently being managed in tele floor as GEN IBeiFeng hold for the management of following issues: #Altered mental status * Patient was transferred to tele for evaluation of possible stroke/sudden onset of altered mental status. CT Head showed possible evolving infarct however MRI was negative. Neurology consulted did not warrant TPA treatment as no focal neurological deficit and unkonw time of onset. Patient is more awake, alert and oriented 2. He does have periods of confusion on and off. * Differentials after ruling out JUNIOR ART DIRECTOR infections (Toxo and Cryptococcus test negative) and metabolic abnormalities remain HIV related dementia. Still awaiting * Fall precaution. #Hematuria\blood loss anemia * Patient has hematuria during the hospital course and renal ultrasound was taken which showed echogenic material. Hence continuous bladder irrigation was started. A week ago patient had clear urine and hence continuous bladder irrigation was stopped. Dr. Victoria suggested to keep the Eduardo for a week. * Patient had hematuria with blood leakage via urethral meatus and with abdominal distention last Thursday. Dr. Victoria tried to insert Eduardo and after feeling some resistance, Decision for cystoscopy in the OR and to cauterize any bleeding points was made after discussing with his daughter and carried out accordingly. Eduardo with CBI placed again. There is no gross hematuria today. * Patient is on IV ceftriaxonE which is discontinued per urology today. EMR not showing other days of abx administration. need to follow up on this. * Patient hemoglobin today 9.1. Patient had total of 5 blood transfusion this admission For blood loss anemia. Goal to keep hemoglobin more than 8 * Patient daughter is closesly involved in care of patient's medical condition is regularly updated. #Acute renal failure, likely from contrast use- resolved * Patient had acute renal failure, likely secondary to contrast-induced nephropathy. We are continuing IV fluids [patient has been refusing food/ medication on/off] and monitor his renal parameters. * Plan for Nephrology consult if worsening. * Avoid nephrotoxins. * Avoid hydrochlorothiazide #fall, no fractures. * Hip x-ray, pelvic x-ray, lumbar spine x-ray, head/ cervical spine CT negative for acute fractures * VitD /B12 levels low. * Continue vit D, calcium, and multivtiamin supplmentation * PT recommends STR #FUO, afebrile now. * Resolved. Ucx and blood cx , blood cultures, sputum culture so far negative * Rapid flu negative. IR guided lumbar puncture done. We will follow up with cultures. (fungal, AFB, regular bacteriology) * CT Ab/pelvis w/ contrast did not show active infectious source including collection. * continue azithromycin and Bactrim for prophylaxis. * Continuing HIV medications (patient's own) on daRUNAVIR and Dolutegravir * Patient urine culture grew yeast. Thus we gave him one dose of IV Fluconazole 400 mg prior to cystoscopy per infectious disease consult. #HIV * Last CD4 count 82 * continue prescobix and dolutragravir daily. * continue Bactrim, azithromycin for PCP and Mac prophylaxis. #DM * We will continue NovoLog coverage before meals. * Endo on board, blood sugar under control now. #Coronary artery disease status post stent placement -continue statin, but ASA and Plavix has been hold in view of hematuria and cystoscopy procedure last week. #Peripheral vascular disease -continue pentoxifylline 400 mg daily #Depression/?dementia/?delirium * Lexapro was discontinued per psychiatry given his prolonged QTc. He was seen by psychiatry service who suggested that his altered mental status can be due to underlying dementia with superimposed delirium. Advised to avoid delirium triggers. Psychiatry follow-up appreciated. Currently there is one-on-one sitter. #Hypertension * continue metoprolol * holding hydrochlorothiazide #GERD * continue omeprazole #BPH s/p TURP * continue tamsulosin, CBI #Insomnia * continue zolpidem PRN for sleep #Mild malnutrition Given his RECENT altered mental status and decreased by mouth intake with weight loss patient meets criteria for mild malnutrition. His albumin 2.6 and pre- albumin 6.4 #Code status: FULL CODE. Had multiple conversations with his daughter regarding the prognosis of the patient's condition. She is aware of the guarded prognosis, and wants to go ahead with treatment for now. #Diet: CC2, mechanical ground and nectar thick consistency #DVT prophylaxis subcutaneous heparin stopp due to hematuria. Now only on ALPS. Plan-urology follow-up [need to confirm the continuation of CBI, aspirin, Eliquis], cardiology follow-up, psychiatry follow-up, physical therapy. Problem List: 1. Altered mental status 2. BPH (benign prostatic hyperplasia) 3. Fever of unknown origin 4. HIV positive Pain Ratin Pain Location: none Pain Goal: Remain pain free Pain Plan: tylenol Tomorrow's Labs & Rationales: cbc,bep [place] BRAVO,Soledad 10/26/17 1331: Attending MD Review Statement Attending Statement Attending MD Statement: examined this patient, discuss w/resident/PA/ADVERTISING CONSULTANT, agreed w/resident/PA/ADVERTISING CONSULTANT, reviewed EMR data (avail), discussed with nursing, reviewed images Attending Assessment/Plan: Fairly complex 82-year-old male with multiple medical issues including AIDS, CD4 count of 82, coronary artery disease with previous MO, diabetes and obstructive uropathy. The active issues now are ongoing CBI for hematuria status post cystoscopy procedure on October [address] Victoria communicated with us in as far as he is concerned we can stop the CBI and we can restart his anticoagulation. Given the known CAD and the A. fib we are restarting the Eliquis and the aspirin but will need to watch closely as he clearly had acute blood loss anemia over the weekend requiring 3 units of blood. His mentation waxes and wanes and the etiology of this is not completely clear, obvious things have been ruled out and CSF JORGE virus and some other things are pending. He continues to have a sitter for ongoing delirium and workup is in progress for placement to a possible dementia unit.
[2017-10-26 07:17] VITALS: BP 138/76
--- NOTE | 2017-10-26 07:39 | PN- Diabetes ---
Assessment/Plan Assessment: Patient is awake. He remains confused. His po intake has been poor. He is on D51/2 NS at 75 ml/hour. Repeat sodium was 141 this morning which is better. Patient is on Novolog coverage every 4 hours and his FSGs were 121, 137, 188 and 115. Plan: The patient is apparently taking some diet p.o. I am told that his daughter is bringing in food from the outside which he eats. Therefore we could decrease his D5 half-normal saline to 50 cc/h. We can change his insulin coverage to before meals only. I would use the same sliding scale starting with a sugar above 150. Subjective Subjective: He states he feels okay Objective Last 24 Hrs of Vital Signs/I&O Vital Signs Date Time Temp Pulse Resp B/P B/P Pulse O2 O2 Flow FiO2 Mean Ox Delivery Rate 10/26 716 98.4 71 18 138/76 96 Room Air 10/250 67 130/74 10/25 2203 98.7 65 20 130/74 94 10/25 1430 98.9 67 18 142/60 96 Room Air 10/25 1116 71 150/62 Intake & Output 10/26 0800 10/26 0000 10/25 1600 Intake Total 600 430 200 Output Total 2850 1150 Balance -2250 430 -950 Intake, Blood 350 Product Intake, IV 600 Intake, Oral 0 80 200 Output, Urine 2850 1150 Vital Signs Date Time Temp Pulse Resp B/P B/P Pulse O2 O2 Flow FiO2 Mean Ox Delivery Rate 10/26 716 98.4 71 18 138/76 96 Room Air 10/25 2210 67 130/74 10/25 2203 98.7 65 20 130/74 94 10/25 1430 98.9 67 18 142/60 96 Room Air 10/25 1116 71 150/62 Intake & Output 10/26 0800 10/26 0000 10/25 1600 Intake Total 600 430 200 Output Total 2850 1150 Balance -2250 430 -950 Intake, Blood 350 Product Intake, IV 600 Intake, Oral 0 80 200 Output, Urine 2850 1150 Physical Exam General Appearance: alert, awake, confused Head: normal appearance Neck: normal inspection Respiratory: normal breath sounds Cardiovascular: regular rate/rhythm Abdomen: normal bowel sounds Current Medications: Current Medications Sig/Juma Start time Last Medication Dose Route Stop Time Status Admin Acetaminophen 1,000 MG Q6P PRN 10/15 1730 AC 10/18 N/A 1 UNIT IV 1653 Ammonium Lactate 1 DILLAN BID 10/10 1000 AC 10/25 TOP 2213 Atorvastatin Calcium 80 MG 1700 10/14 1700 AC 10/23 PO 2020 Azithromycin 1,200 MG ONCE ONE 10/26 0745 UNVr PO 10/26 0746 Ceftriaxone Sodium 1,000 MG 10/24 2000 DC 10/25 IV 2255 Cholecalciferol 1,000 IU DAILY 10/12 1445 AC 10/23 PO 202 Cyanocobalamin 1,000 MCG DAILY 10/25 1000 AC PO Dextrose/Sodium 1,000 ML Q13H 10/24 1315 AC 10/26 Chloride IV 0536 Famotidine 20 MG DAILY 10/14 1101 AC 10/25 PO 1117 Insulin Aspart 0 Q4 10/13 0200 AC 10/25 SC 0638 Metoprolol Tartrate 50 MG BID 10/18 2359 AC 10/25 PO 2210 Multivitamins 1 TAB DAILY 10/12 1530 AC 10/23 PO 2024 Nystatin 5 ML 4 TIMES/DAY 10/24 1504 AC 10/25 PO 2210 Ondansetron HCl 4 MG Q6P PRN 10/11 1330 AC 10/22 IV 1210 Pentoxifylline 400 MG DAILY 10/10 1000 AC 10/25 PO 1117 Tamsulosin HCl 0.4 MG DAILY 10/10 1000 AC 10/25 PO 1116 Trimethoprim/ 1 TAB 10/26 1000 AC Sulfamethoxazole PO Findings Pertinent Lab/Lam Results: Laboratory Tests 10/26 10/26 0644 0120 Chemistry Sodium (137 - 145 mmol/L) Pending 141 Potassium (3.5 - 5.1 mmol/L) Pending 3.6 Chloride (98 - 107 mmol/L) Pending 104 Carbon Dioxide (22 - 30 mmol/L) Pending 27 Anion Gap (5 - 16) Pending 10 BUN (9 - 20 mg/dL) Pending 5 L Creatinine (0.7 - 1.2 mg/dL) Pending 0.7 Estimated GFR (>60 ml/min) > 60 BUN/Creatinine Ratio (7 - 25 %) Pending 7.1 Hematology CBC w Diff Pending NO MAN DIFF REQ WBC (4.8 - 10.8 /CUMM) Pending 5.3 RBC (4.70 - 6.10 /CUMM) Pending 3.07 L Hgb (14.0 - 18.0 G/DL) Pending 8.9 L Hct (42 - 52 %) Pending 26.6 L MCV (80.0 - 94.0 FL) Pending 86.7 MCH (27.0 - 31.0 PG) Pending 29.1 MCHC (33.0 - 37.0 G/DL) Pending 33.6 RDW (11.5 - 14.5 %) Pending 15.3 H Plt Count (130 - 400 /CUMM) Pending 269 MPV (7.4 - 10.4 FL) Pending 9.4 Gran % (42.2 - 75.2 %) 80.9 H Lymphocytes % (20.5 - 51.1 %) 11.2 L Monocytes % (1.7 - 9.3 %) 5.6 Eosinophils % (0 - 5 %) 2.0 Basophils % (0.0 - 2.0 %) 0.3 Absolute Granulocytes (1.4 - 6.5 /CUMM) 4.3 Absolute Lymphocytes (1.2 - 3.4 /CUMM) 0.6 L Absolute Monocytes (0.10 - 0.60 /CUMM) 0.3 Absolute Eosinophils (0.0 - 0.7 /CUMM) 0.1 Absolute Basophils (0.0 - 0.2 /CUMM) 0
[2017-10-26 08:03] LABS: ABSOLUTE BASOPHIL COUNT 0 /CUMM (0.0-0.2); ABSOLUTE EOSINOPHIL COUNT 0.1 /CUMM (0.0-0.7); ABSOLUTE GRANULOCYTE CT 4.2 /CUMM (1.4-6.5); ABSOLUTE LYMPH COUNT 0.7 /CUMM (1.2-3.4); ABSOLUTE MONOCYTE COUNT 0.3 /CUMM (0.10-0.60); BASOPHIL % 0.6 % (0.0-2.0); GRANULOCYTE % 77.4 % (42.2-75.2); MEAN CORPUSCULAR HGB 29.6 PG (27.0-31.0); MEAN CORPUSCULAR HGB CONC 33.7 G/DL (33.0-37.0); MEAN CORPUSCULAR VOLUME 87.8 FL (80.0-94.0); MEAN PLATELET VOLUME 9.4 FL (7.4-10.4); PLATELET COUNT 277 /CUMM (130-400); RBC DISTRIBUTION WIDTH 15.8 % (11.5-14.5); RED BLOOD CELL CT 3.08 /CUMM (4.70-6.10); WHITE BLOOD CELL COUNT 5.5 /CUMM (4.8-10.8)
--- NOTE | 2017-10-26 10:39 | PN- Infect Dx ---
Subjective Subjective: Afebrile without complaints Objective Last 24 Hrs of Vital Signs/I&O Vital Signs Date Time Temp Pulse Resp B/P B/P Pulse O2 O2 Flow FiO2 Mean Ox Delivery Rate 10/26 0717 98.4 71 18 138/76 96 Room Air 10/25 2210 67 130/74 10/25 2203 98.7 65 20 130/74 94 10/25 1430 98.9 67 18 142/60 96 Room Air 10/25 1116 71 150/62 Intake & Output 10/26 1600 10/26 0800 10/26 0000 Intake Total 600 430 Output Total 2850 Balance -2250 430 Intake, Blood 350 Product Intake, IV 600 Intake, Oral 0 80 Output, Urine 2850 Physical Exam Other Physical Findings: He appears comfortable in no acute distress Lungs are clear Heart regular rhythm with no murmur Abdomen is soft, nontender with positive bowel sounds Extremities ecchymoses in the right upper extremity Eduardo catheter remains in place Results Last 24 Hours of Lab Results: Laboratory Tests 10/26 10/26 0858 0644 Chemistry Sodium (137 - 145 mmol/L) 139 Potassium (3.5 - 5.1 mmol/L) 3.4 L Chloride (98 - 107 mmol/L) 100 Carbon Dioxide (22 - 30 mmol/L) 30 Anion Gap (5 - 16) 9 BUN (9 - 20 mg/dL) 5 L Creatinine (0.7 - 1.2 mg/dL) 0.7 Estimated GFR (>60 ml/min) > 60 BUN/Creatinine Ratio (7 - 25 %) 7.1 Hematology CBC w Diff NO MAN DIFF REQ WBC (4.8 - 10.8 /CUMM) 5.5 RBC (4.70 - 6.10 /CUMM) 3.08 L Hgb (14.0 - 18.0 G/DL) 9.1 L Hct (42 - 52 %) 27.0 L MCV (80.0 - 94.0 FL) 87.8 MCH (27.0 - 31.0 PG) 29.6 MCHC (33.0 - 37.0 G/DL) 33.7 RDW (11.5 - 14.5 %) 15.8 H Plt Count (130 - 400 /CUMM) 277 MPV (7.4 - 10.4 FL) 9.4 Gran % (42.2 - 75.2 %) 77.4 H Lymphocytes % (20.5 - 51.1 %) 13.7 L Monocytes % (1.7 - 9.3 %) 6.3 Eosinophils % (0 - 5 %) 2.0 Basophils % (0.0 - 2.0 %) 0.6 Absolute Granulocytes (1.4 - 6.5 /CUMM) 4.2 Absolute Lymphocytes (1.2 - 3.4 /CUMM) 0.7 L Absolute Monocytes (0.10 - 0.60 /CUMM) 0.3 Absolute Eosinophils (0.0 - 0.7 /CUMM) 0.1 Absolute Basophils (0.0 - 0.2 /CUMM) 0 10/26 0120 Chemistry Sodium (137 - 145 mmol/L) 141 Potassium (3.5 - 5.1 mmol/L) 3.6 Chloride (98 - 107 mmol/L) 104 Carbon Dioxide (22 - 30 mmol/L) 27 Anion Gap (5 - 16) 10 BUN (9 - 20 mg/dL) 5 L Creatinine (0.7 - 1.2 mg/dL) 0.7 Estimated GFR (>60 ml/min) > 60 BUN/Creatinine Ratio (7 - 25 %) 7.1 Prealbumin (17.6 - 36.0 mg/dL) 6.4 L Hematology CBC w Diff NO MAN DIFF REQ WBC (4.8 - 10.8 /CUMM) 5.3 RBC (4.70 - 6.10 /CUMM) 3.07 L Hgb (14.0 - 18.0 G/DL) 8.9 L Hct (42 - 52 %) 26.6 L MCV (80.0 - 94.0 FL) 86.7 MCH (27.0 - 31.0 PG) 29.1 MCHC (33.0 - 37.0 G/DL) 33.6 RDW (11.5 - 14.5 %) 15.3 H Plt Count (130 - 400 /CUMM) 269 MPV (7.4 - 10.4 FL) 9.4 Gran % (42.2 - 75.2 %) 80.9 H Lymphocytes % (20.5 - 51.1 %) 11.2 L Monocytes % (1.7 - 9.3 %) 5.6 Eosinophils % (0 - 5 %) 2.0 Basophils % (0.0 - 2.0 %) 0.3 Absolute Granulocytes (1.4 - 6.5 /CUMM) 4.3 Absolute Lymphocytes (1.2 - 3.4 /CUMM) 0.6 L Absolute Monocytes (0.10 - 0.60 /CUMM) 0.3 Absolute Eosinophils (0.0 - 0.7 /CUMM) 0.1 Absolute Basophils (0.0 - 0.2 /CUMM) 0 Last 24 Hours of Lam Results: CSF cryptococcal antigen negative CSF PCR for JORGE virus negative Assessment/Plan Impression: Stable, with temperatures remaining normal, now off antibiotics after 6 days of Ceftriaxone, ordered by Urology because of concern for a urinary tract infection , though his urine culture only grew yeast, which was felt to represent colonization secondary to his Eduardo catheter, status post cystoscopy with evacuation of a clot 3 days ago, with one dose of Fluconazole given as prophylaxis. His recent CSF was negative for any evidence of infection, but did reveal 2 oligoclonal bands, of unclear significance, and would appreciate Neuro follow-up on this. Other issues include retroperitoneal, left inguinal and iliac lymphadenopathy on his CT scans but, as discussed with IR, none of these are felt to be amenable to aspiration. Metastatic prostate cancer could also explain this, but, unfortunately, it appears that only prostate chips were submitted from his recent cystoscopy. Suggestion: 1. Follow-up pathology from his recent cystoscopy 2. Follow-up CSF AFB and fungal cultures 3. Neurology follow-up regarding the positive oligoclonal bands on his previous CSF 4. Continue antiretroviral and PJP/MARCUS prophylaxis Will no longer follow at this time, but please call with any questions
--- NOTE | 2017-10-26 11:34 | Patient Discharge Instructions ---
Discharge Instructions General Discharge Information You were seen/treated for: Altered mental status, blood loss anemia, new onset atrial fibrillation, fever of unknown origin Watch for these problems: In case of chest pain, chest pressure, confusion, loss of consciousness, palpitations, short of breath, fever please go to the nearest emergency room. Special Instructions: Please follow-up with your primary care provider within 1-2 weeks of discharge and let them know about your recent admission at [facility]. Please follow-up with your nursing home director within 1-2 weeks of discharge and let them know about your recent admission [facility]. Please follow-up with the urologist within a week of discharge and let them know about your recent admission at [facility]. Diet Continue normal diet: No Recommended Diet: Diabetic Activity Full Activity/No Limits: No Activity Self Limited: Yes Acute Coronary Syndrome Inclusion Criteria At DC or during hospital stay patient has or had the following: ACS DIAGNOSIS No Discharge Core Measures Meds if any: Prescribed or Continued at Discharge Meds if any: NOT Prescribed or Continued at Discharge Congestive Heart Failure Inclusion Criteria At DC or during hospital stay patient has or had the following: CHF DIAGNOSIS No Discharge Core Measures Meds if any: Prescribed or Continued at Discharge Meds if any: NOT Prescribed or Continued at Discharge Cerebrovascular accident Inclusion Criteria At DC or during hospital stay patient has or had the following: CVA/TIA Diagnosis No Discharge Core Measures Meds if any: Prescribed or Continued at Discharge Meds if any: NOT Prescribed or Continued at Discharge Venous thromboembolism Inclusion Criteria VTE Diagnosis No VTE Type NONE VTE Confirmed by (Test) NONE Discharge Core Measures - Per Current guidelines, there needs to be overlap - treatment for the first 5 days of Warfarin therapy. - If discharged on Warfarin prior to 5 days of - overlap therapy, the patient will need to be - assessed for post discharge needs including - *Post discharge parental anticoagulation - *Warfarin and/or parental anticoagulation education - *Follow up date to check INR post discharge At least 5 days overlap therapy as Inpatient No Meds if any: Prescribed or Continued at Discharge Note: Overlap Therapy is Warfarin and Anticoagulant Meds if any: NOT Prescribed or Continued at Discharge
[2017-10-26 14:15] VITALS: BP 140/70
--- NOTE | 2017-10-26 15:08 | Event Note ---
Event Note Event Note: I had an extensive conversation with patient's daughter, who is actively involved in patient's care since this admission. She also is the power of adobe block maker for him as he currently does not have the capacity to understand his condition and make decisions for him. After discussing his chronic medical conditions, and that the fact that he seems to be improving in terms of fever, bleeding, what still has some degree of altered mental status, and that we are not sure if this would be his new baseline as we try to find out the cause of this AMS. Of note, dementia, HIV related or not, seems to be one of the differentials, but has to be considered as a diagnosis of exclusion. All this was explained to the daughter in simple lung bases and she understood it well. Given his prognosis, the patient's daughter, being the power of adobe block maker, decided that the patient would not want resuscitative measures in case he had a cardiopulmonary arrest. This is considering the fact that the POA explained herself that she is aware of the cardiopulmonary resuscitation measures herself. As such, his CODE STATUS has been now changed to DNR/DNI from full code. My PGY 1 advisory intern, attending Soledad Lovelace MD, Argelia the director of casework, Shiloh the nursing staff has been informed of the decision as well.
[2017-10-26 22:22] VITALS: BP 150/90
[2017-10-27 06:48] VITALS: BP 150/70
--- NOTE | 2017-10-27 08:23 | PN- Diabetes ---
Assessment/Plan Assessment: Patient is awake. He remains confused. His po intake has been poor. His IV fluids have been stopped. The patient's last serum sodium from yesterday is 139. His NovoLog coverage has been changed to before meals only. His blood sugars are in a good range. Plan: Suggest continue to check his sugars before meals. Now that the patient is off IV fluids she needs to be watched carefully for dehydration and recurrent hypernatremia. Hopefully with encouragement he will taken enough fluids and calories by mouth Subjective Subjective: Patient is confused Objective Last 24 Hrs of Vital Signs/I&O Vital Signs Date Time Temp Pulse Resp B/P B/P Pulse O2 O2 Flow FiO2 Mean Ox Delivery Rate 10/27 0648 97.8 63 20 150/70 94 Room Air 10/26 2222 98.0 59 16 150/90 94 10/26 1525 Nasal 2.0L Cannula 10/26 1415 97.0 59 20 140/70 97 Room Air Intake & Output 10/27 1600 10/27 0800 10/27 0000 Intake Total 50 100 Output Total 450 950 Balance -400 -850 Intake, Oral 50 100 Number 1 1 Bowel Movements Output, Urine 450 950 Vital Signs Date Time Temp Pulse Resp B/P B/P Pulse O2 O2 Flow FiO2 Mean Ox Delivery Rate 10/27 0648 97.8 63 20 150/70 94 Room Air 10/26 2222 98.0 59 16 150/90 94 10/26 1525 Nasal 2.0L Cannula 10/26 1415 97.0 59 20 140/70 97 Room Air Intake & Output 10/27 1600 10/27 0800 10/27 0000 Intake Total 50 100 Output Total 450 950 Balance -400 -850 Intake, Oral 50 100 Number 1 1 Bowel Movements Output, Urine 450 950 Physical Exam General Appearance: alert, awake, confused Head: normal appearance Neck: normal inspection Respiratory: normal breath sounds Skin: ecchymosis right upper arm. Current Medications: Current Medications Sig/Juma Start time Last Medication Dose Route Stop Time Status Admin Acetaminophen 1,000 MG Q6P PRN 10/15 1730 AC 10/18 N/A 1 UNIT IV 1653 Ammonium Lactate 1 DILLAN BID 10/10 1000 AC 10/25 TOP 2213 Apixaban 2.5 MG BID 10/26 1327 AC PO Aspirin 81 MG DAILY 10/26 1327 AC PO Atorvastatin Calcium 80 MG 1700 10/14 1700 AC 10/23 PO 2020 Cholecalciferol 1,000 IU DAILY 10/12 1445 AC 10/26 PO 0958 Cyanocobalamin 1,000 MCG DAILY 10/25 1000 AC PO Dextrose/Sodium 1,000 ML Q13H 10/24 1315 DC 10/26 Chloride IV 0536 Famotidine 20 MG DAILY 10/14 1101 AC 10/25 PO 1117 Insulin Aspart 0 TIDAC 10/26 1200 AC 10/26 SC 1223 Insulin Aspart 0 Q4 10/13 0200 DC 10/25 SC 0638 Metoprolol Tartrate 50 MG BID 10/18 2359 AC 10/25 PO 2210 Multivitamins 1 TAB DAILY 10/12 1530 AC 10/23 PO 2025 Nystatin 5 ML 4 TIMES/DAY 10/24 1504 AC 10/25 PO 2210 Ondansetron HCl 4 MG Q6P PRN 10/11 1330 AC 10/22 IV 1210 Pentoxifylline 400 MG DAILY 10/10 1000 AC 10/25 PO 1117 Potassium Chloride 40 MEQ ONCE ONE 10/26 1345 DC PO 10/26 1346 Tamsulosin HCl 0.4 MG DAILY 10/10 1000 AC 10/26 PO 0957 Trimethoprim/ 1 TAB 10/26 1000 AC Sulfamethoxazole PO Findings Pertinent Lab/Lam Results: Laboratory Tests 10/27 10/26 0622 0858 Chemistry Sodium (137 - 145 mmol/L) Pending 139 Potassium (3.5 - 5.1 mmol/L) Pending 3.4 L Chloride (98 - 107 mmol/L) Pending 100 Carbon Dioxide (22 - 30 mmol/L) Pending 30 Anion Gap (5 - 16) Pending 9 BUN (9 - 20 mg/dL) Pending 5 L Creatinine (0.7 - 1.2 mg/dL) Pending 0.7 Estimated GFR (>60 ml/min) > 60 BUN/Creatinine Ratio (7 - 25 %) Pending 7.1 Hematology CBC w Diff Pending WBC Pending RBC Pending Hgb Pending Hct Pending MCV Pending MCH Pending MCHC Pending RDW Pending Plt Count Pending MPV Pending
[2017-10-27 08:26] LABS: ABSOLUTE BASOPHIL COUNT 0 /CUMM (0.0-0.2); ABSOLUTE EOSINOPHIL COUNT 0.1 /CUMM (0.0-0.7); ABSOLUTE GRANULOCYTE CT 4.4 /CUMM (1.4-6.5); ABSOLUTE LYMPH COUNT 0.6 /CUMM (1.2-3.4); ABSOLUTE MONOCYTE COUNT 0.4 /CUMM (0.10-0.60); BASOPHIL % 0.1 % (0.0-2.0); EOSINOPHIL % 1.5 % (0-5); GRANULOCYTE % 80.7 % (42.2-75.2); HEMATOCRIT 28.7 % (42-52); MEAN CORPUSCULAR HGB 29.6 PG (27.0-31.0); MEAN CORPUSCULAR HGB CONC 33.9 G/DL (33.0-37.0); MEAN CORPUSCULAR VOLUME 87.5 FL (80.0-94.0); MEAN PLATELET VOLUME 9.4 FL (7.4-10.4); PLATELET COUNT 280 /CUMM (130-400); RBC DISTRIBUTION WIDTH 16.3 % (11.5-14.5); RED BLOOD CELL CT 3.28 /CUMM (4.70-6.10); WHITE BLOOD CELL COUNT 5.5 /CUMM (4.8-10.8)
--- NOTE | 2017-10-27 09:47 | PN- Housestaff ---
Natalie BRAVO,[facility] 10/27/17 0947: Subjective Follow-up For: AMS Hematuria, on CBI, s/p cystoscopy PUO, resolved HIV, on HAART Rectal bleeding, microscopic Anemia Subjective: Patient lying comfortably in bed, no active issues. Review of Systems Constitutional: Reports: no symptoms. Objective Last 24 Hrs of Vital Signs/I&O Vital Signs Date Time Temp Pulse Resp B/P B/P Pulse O2 O2 Flow FiO2 Mean Ox Delivery Rate 10/27 1445 98.5 101 20 130/70 96 Room Air 10/27 0648 97.8 63 20 150/70 94 Room Air 10/26 2222 98.0 59 16 150/90 94 Intake & Output 10/27 1600 10/27 0800 10/27 0000 Intake Total 200 50 100 Output Total 850 450 950 Balance -650 -400 -850 Intake, Oral 200 50 100 Number 1 1 Bowel Movements Output, Urine 850 450 950 Physical Exam General Appearance: Alert, Cooperative, No Acute Distress Skin: No Rashes, No Breakdown Cardiovascular: Normal S1, Normal S2 Lungs: Clear to Auscultation, Normal Air Movement Abdomen: Normal Bowel Sounds, Soft, No Tenderness Extremities: No Clubbing, No Cyanosis, No Edema Current Medications: Current Medications Sig/Juma Start time Last Medication Dose Route Stop Time Status Admin Acetaminophen 1,000 MG Q6P PRN 10/15 1730 AC 10/18 N/A 1 UNIT IV 1653 Ammonium Lactate 1 DILLAN BID 10/10 1000 AC 10/25 TOP 2213 Apixaban 2.5 MG BID 10/26 1327 AC 10/27 PO 1549 Aspirin 81 MG DAILY 10/26 1327 AC 10/27 PO 1600 Atorvastatin Calcium 80 MG 1700 10/14 1700 AC 10/27 PO 1601 Cholecalciferol 1,000 IU DAILY 10/12 1445 AC 10/26 PO 0958 Cyanocobalamin 1,000 MCG DAILY 10/25 1000 AC PO Famotidine 20 MG DAILY 10/14 1101 AC 10/25 PO 1117 Insulin Aspart 0 TIDAC 10/26 1200 AC 10/26 SC 1223 Metoprolol Tartrate 50 MG BID 10/18 2359 AC 10/27 PO 1552 Multivitamins 1 TAB DAILY 10/12 1530 AC 10/23 PO 2025 Nystatin 5 ML 4 TIMES/DAY 10/24 1504 AC 10/27 PO 1603 Ondansetron HCl 4 MG Q6P PRN 10/11 1330 AC 10/22 IV 1210 Pentoxifylline 400 MG DAILY 10/10 1000 AC 10/27 PO 1558 Tamsulosin HCl 0.4 MG DAILY 10/10 1000 AC 10/27 PO 1552 Trimethoprim/ 1 TAB 10/26 1000 AC Sulfamethoxazole PO Last 24 Hrs of Lab/Lam Results Last 24 Hrs of Labs/Mics: Laboratory Tests 10/27/17 0622: Anion Gap 11, Estimated GFR > 60, BUN/Creatinine Ratio 8.8, CBC w Diff NO MAN DIFF REQ, RBC 3.28 L, MCV 87.5, MCH 29.6, MCHC 33.9, RDW 16.3 H, MPV 9.4, Gran % 80.7 H, Lymphocytes % 10.9 L, Monocytes % 6.8, Eosinophils % 1.5, Basophils % 0.1, Absolute Granulocytes 4.4, Absolute Lymphocytes 0.6 L, Absolute Monocytes 0.4, Absolute Eosinophils 0.1, Absolute Basophils 0 Assessment/Plan Assessment: 82-year-old male with past medical history significant for coronary artery disease status post PA, stent placement on dual antiplatelet regimen, HIV with CD4 count 82 on prophylactic antibiotics Bactrim, azithromycin, Prezcobix, dolutegravir, depression, hypertension, type 2 diabetes mellitus, GERD, BPH, recently discharged for fever of unknown origin, retroperitoneal lymphadenopathy questionable lymphoma presenting to the emergency room for left hip pain status post fall x2. Problem List: #Anemia (Acute blood loss); s/p 4 units blood transfusions throughout the hospitalization. - Currently H&H remains stable. - Anemia may be secondary to multiple factors including ongoing hematuria, however acute change with blood bowel movement is concerning for possible GI bleed. - GI consulted for further recommendations. - Goal H&H > 8/24. - Continue to monitor H&H #Hypernatremia - Resolved. - Continue to monitor with repeat BEP this evening #Hematuria; resolved - No abx per ID. - Off CBI, Would dc home with prabhakar for hematuria\tamponade for one more week. - Outpatient f/u evy Victoria in 1-2 weeks. #Altered mental status/hematuria * Patient [facility] for evaluation of possible stroke/sudden onset of altered mental status. CT Head showed possible evolving infarct however MRI was negative. Neurology consulted did not warrant TPA treatment as no neurological deficit and unkonw time of onset. Patient is more awake, alert and oriented 2. He does have periods of confusion on and off. * Fall precaution. #Acute renal failure, likely from contrast use-which is resolved now. * Patient had acute renal failure secondary to contrast-induced nephropathy. * Avoid nephrotoxins. * Avoid hydrochlorothiazide #fall * Hip x-ray, pelvic x-ray, lumbar spine x-ray, head/ cervical spine CT negative for acute fractures VitD /B12 levels low. On vitamin D and calcium supplementation. * Continue vit D and multivtiamin supplmentation * PT recommends STR #FUO * Resolved. Ucx and blood cx , blood cultures, sputum culture thus far negative * Rapid flu negative. IR guided lumbar puncture done. We will follow up with cultures. * CT Ab/pelvis w/ contrast did not show active infectious source including collection. * IV antibiotics per urology and continue azithromycin and Bactrim for prophylaxis. * continue HIV medications * Tylenol 650mg once for his spiked fever this morning. * Patient urine culture is growing yeast. We will give him 1 dose of fluconazole 400 mg IV prior infectious disease. #HIV * Last CD4 count 82 * continue prescobix and dolutragravir daily. * continue Bactrim, azithromycin, valacyclovir #DM * We will continue NovoLog coverage every 4 hours. #Coronary artery disease status post stent placement -continue aspirin, statin, Plavix #Peripheral vascular disease -continue pentoxifylline 400 mg daily #Depression * Lexapro was discontinued per psychiatry given his prolonged QTC. She was seen by psychiatry yesterday who suggested that his altered mental status can be due to underlying dementia with superimposed delirium. Advised to avoid delirium triggers. Psychiatry follow-up appreciated. #Hypertension * continue metoprolol. * hold hydrochlorothiazide #GERD * continue omeprazole #BPH s/p TURP * continue tamsulosin #Insomnia * continue zolpidem as needed for sleep #FULL CODE #DVT prophylaxis subcutaneous heparin Problem List: 1. Altered mental status 2. Hematuria 3. Fever of unknown origin 4. ORTIZ (acute kidney injury) 5. HIV positive Pain Ratin Pain Location: None Pain Goal: Remain pain free Pain Plan: None Tomorrow's Labs & Rationales: None [place] BRAVO,Soledad 10/27/17 1536: Attending MD Review Statement Attending Statement Attending MD Statement: examined this patient, discuss w/resident/PA/BRUSH WASHER, agreed w/resident/PA/BRUSH WASHER, reviewed EMR data (avail), discussed with nursing, discussed with case mgmt, reviewed images Attending Assessment/Plan: Patient continues to be confused and has a sitter. His crit has stayed stable at 06/10-06/11 with the aspirin and Eliquis being restarted. I spoke to Dr. Victoria who said he needs the Prabhakar for at least a week given the hematuria complicating the TURP issues. We also need placement in a dementia unit and case management is actively working on that.
--- NOTE | 2017-10-27 10:36 | PN- Urology ---
Surgical Brief Attending Note Brief Attending Note: Pt comfortable, groggy early this am but seems to recognize me. VSS afebrile. CBI off with clear yellow urine. Plan: anti-coag per medicine. no abx per ID. Would prefer to dc home with prabhakar for hematuria\tamponade for one more week. f /u in office for VT in 1-2 weeks.
[2017-10-27 14:45] VITALS: BP 130/70
[2017-10-27 22:36] VITALS: BP 112/62
--- NOTE | 2017-10-27 23:57 | Discharge Summary ---
Visit Information Visit Dates Admission Date: 10/12/17 Discharge Date: 10/30/17 Hospital Course Course Attending Physician: [place] BRAVO,Soledad Haley Primary Care Physician: Jeff Emery MD Consulting Request: 1 Consulting Specialty: Cardiology Consulting Physician: Dr. Haines Reason for Consult: atrial fibrillation with rapid ventricular rate Consulting Request: 2 Consulting Specialty: Endocrinology Consulting Physician: Scott Sutton MD Reason for Consult: uncontrolled diabetes Consulting Request: 3 Consulting Specialty: Infectious Disease Consulting Physician: Jose Martin MD Reason for Consult: fever of unknown origin Consulting Request: 4 Consulting Specialty: Neurology Consulting Physician: Alfie Aquino MD Reason for Consult: altered mental status Consulting Request: 5 Consulting Specialty: Urology Consulting Physician: Dr. Victoria Reason for Consult: gross hematuria, acute renal failure, status post-TURP Consulting Request: 6 Consulting Specialty: Gastroenterology Consulting Physician: Dr. Burgos Reason for Consult: rectal bleeding Consulting Request: 7 Consulting Specialty: Psychiatry Consulting Physician: Jovany Shepherd APRN Reason for Consult: altered mental status and dementia Hospital Course: The patient is an 82-year-old man with past medical history significant for coronary artery disease status post DE, stent placement on dual antiplatelet regimen, HIV with CD4 count 82 on prophylactic antibiotics (Bactrim, azithromycin), and antiretrovirals prior to admissio (Prezcobix, dolutegravir), depression, hypertension, type 2 diabetes mellitus, GERD, BPH, recently discharged for fever of unknown origin, retroperitoneal lymphadenopathy, and questionable lymphoma presenting to the emergency room for left hip pain status post fall x2. He claimed there was some preceding dizziness, but denied any head trauma, LOC, urinary incontinence, fecal incontinence, seizures, or confusion after the fall. He had generalized weakness. There apparently was no preceding chest pain, shortness of breath, palpitations, fevers, chills, nausea, vomiting, or abdominal pain. He was admitted initially to telemetry floor for the management of following issues: #Altered mental status * Patient was transferred to telemetry floor for evaluation of possible stroke/ sudden onset of altered mental status. CT Head showed possible evolving infarct however MRI was negative. Neurology consulted did not warrant TPA treatment as no focal neurological deficit and unknown time of onset. Patient became more awake, alert and oriented 2 while on admission but continued to have periods of confusion on and off. * Differentials that have ruled out during the admission included TRAVELING SECRETARY infections (Toxo and Cryptococcus test negative) and metabolic abnormalities. 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 Given that all of the workup to date is negative the presumptive diagnosis was dementia. The medical team attending spoke to the daughter at length and she understands this. He has delirium with episodes of confusion on and off but is generally redirectable. #Hematuria, acute blood loss anemia * Patient had hematuria during the hospital course and renal ultrasound was taken which showed echogenic material. He was started on continuous bladder irrigation with subsequent clearing of his urine. Continuous bladder irrigation was then stopped. Dr. Victoria suggested to keep the Prabhakar in for 1 more week after discharge. * Patient had hematuria with blood leakage via urethral meatus and with abdominal distention. Dr. Victoria tried to insert Prabhakar and after feeling some resistance. An account of this, the patient underwent cystoscopy in the OR and to cauterize any bleeding points, after discussing with his daughter and carried out accordingly. His cystoscopy was done on October 23 with no mass in the bladder seen. Prabhakar catheter with continuous bladder irrigation was done again after cystoscopy and his gross hematuria resolved. * The plan is to keep the Prabhakar in until the week of euary through 2017 and then remove. He did have blood loss anemia and his anticoagulation was temporarily held during that time and restarted later after his hemoglobin stabilized in the 8-10 g/dl range. He is maintained on aspirin and Eliquis. He needs to follow-up with urology within a week of discharge. #Acute renal failure, likely from contrast use- resolved * Patient had acute renal failure, likely secondary to contrast-induced nephropathy. IV fluids were administered and the patients renal function normalized prior to discharge. On discharge patient should avoid nephrotoxins and NSAIDs and avoid hydrochlorothiazide if possible. # Mechanical fall with no fractures. * Hip x-ray, pelvic x-ray, lumbar spine x-ray, head/ cervical spine CT negative for acute fractures * VitD /B12 levels were low and these were supplemented. * Continue vit D, calcium, and multivtiamin supplmentation * Physical therapy recommended short-term rehabilitation #Fever of unknown origin, currently afebrile * Resolved. Ucx and blood cx , blood cultures, sputum culture so far negative except for one urine culture only showed yeast that was thought to be a contaminant. * Rapid flu negative. IR guided lumbar puncture done and CSF cultures were negative. CSF studies for toxoplasma and herpes simplex were also negative. CSF cultures for AFB with AFB smear were negative at the time of discharge. * CT Ab/pelvis w/ contrast did not show active infectious source including collection. C-diff test, done after a loose bowel movement was also negative. * Patient should be continued on by mouth azithromycin and Bactrim for Mycobacterium avium intercellular on pneumocystis Jiroveci prophylaxis. * Patient urine culture grew yeast. Thus we gave him one dose of IV Fluconazole 400 mg prior to cystoscopy per infectious disease consult. At this point given his poor by mouth intake, low CD4 count, previous noncompliance with antiretrovirals and dementia we have held on the antiretrovirals. The plan was for the antiretrovirals to be restarted at his short-term rehabilitation as his mentation and by mouth intake improves.Please restart the antiretrovirals. At this point we are trying to decrease pill burden and improve his mentation but this needs to be strongly reevaluated. #Rectal bleeding Patient had a brief episode of painless rectal bleeding after passing stools and was reviewed by char filter operator Dr. Burgos. As the patient had dementia his daughter Yandy Jarvis was informed and opted not to pursue an inpatient colonoscopy to further evaluate this. #HIV * Last CD4 count done on admission less than 20 * See recommendations for antiretrovirals above. * continue Bactrim, azithromycin. #DM * The patient was reviewed by photostat operator helper and his blood sugars were better controlled. He was placed on NovoLog sliding scale 3 times a day before meals on discharge * Given his poor by mouth intake the patient should not have any long-acting oral or parenteral agents for now. #Coronary artery disease and atrial fibrillation -He was continued on his statin, aspirin and Eliquis for A. fib on discharge #Peripheral vascular disease -He was continued on pentoxifylline 400 mg daily #Depression/?dementia/?delirium * Lexapro was discontinued per psychiatry given his prolonged QTc. He was seen by psychiatry service who suggested that his altered mental status can be due to underlying dementia with superimposed delirium. Advised to avoid delirium triggers. #Hypertension * He was continued on by mouth metoprolol #GERD * He was continued on by mouth omeprazole #BPH s/p TURP * He was continued on by mouth tamsulosin after continuous bladder irrigation #Insomnia * continue zolpidem PRN for sleep #Code status:DNR/DNI. The team had multiple conversations with his daughter regarding the prognosis of the patient's condition. She is aware of the overall poor prognosis, and wants to go ahead with treatment for now. She is aware that his course might be matthew given the dementia and the poor by mouth intake. Right now he is DNR/DNI but she will reevaluate his CODE STATUS if he continues to deteriorate in the [facility]. #Diet: Diabetic Consistent Carbohydrate 2 diet, mechanical ground consistency and thin liquids. Strict aspiration precautions #DVT prophylaxis: ALPS and Eliquis Complications: Acute blood loss anemia, requiring transfusion four times (Oct 16,,, 2017). Allergies: Coded Allergies: No Known Allergies (08/26/17) Significant Procedures: Cystoscopy done by Dr Wing Victoria on 10/23/17: Surgery Date: 10/23/17 Name of Procedure: cystoscopy: evacuation of clot, TURP of bleeding prostatic tissue Pre-Operative Diagnosis: gross hematuria, clot retention, BPH with hemorrhagic prostate Post-Operative Diagnosis: same Estimated Blood Loss: 350cc old bladder clot. Surgeon/Ui Designer: MD Julien, Wing-urology Anesthesia: moderate sedation Drains: 24fr. 2-way prabhakar with NS CBI Specimens: prostate chips. Complications: none Condition: improved-clear cbi running well. Operative/Procedure Note Note: The patient was taken to the operating room and placed on the OR table in supine position. Timeout was performed, with the pt. awake, to correctly identify the patient, anesthesia, procedure, and IV antibiotics, and other pertinent perioperative information. After adequate anesthesia and antibiotics, the old Prabhakar catheter was removed. The patient was then placed in lithotomy stirrups using yellowfin stirrups. The patient was then draped and prepped in the usual surgical fashion. A 26 Togolese standard resectoscope sheath with a 30 angle lens and the 24 Togolese loop was inserted into the urethra, and then advanced into the bladder without difficulty. A FEW small clots, and bladder stones, were noted in the bladder, and were Ellix evacuated out. With a clearer vision, the prostate was noted to have an irregular and ratty surface with severely coapting lobes. Additionally, the prostate was hypervascular consistent with regrowth. Upon entering the bladder, it was thoroughly and systematically surveyed revealing no evidence of tumor, no evidence of stone, both orifices were difficult to find due to the severe trabeculation, in their orthotopic position with clear yellow reflux. The resectoscope was then retracted to the level of the bob montanum. Under direct visualization the 24 Togolese loop was then extended beyond the scope. Under direct visualization, and using the cutting current, the left lobe of the prostate was resected from the 2:00 to the 6 o'clock position to the level of the fibromuscular capsule. Using coag current, spot cauterization was performed in order to achieve good hemostasis of the prostate. The loop was then extended once again using cutting current to resect the right side of the prostate from the 10:00 to the 6 o'clock position to the level of the fibromuscular capsule. Spot cauterization using coag current was then performed in order to achieve good hemostasis. Maintaining the position of the resectoscope at the level of the vera montanum the apical tissue was resected as well on both sides. The external sphincter was preserved. The bladder was then re-entered via the resectoscope, and the prostate chips were irrigated out using tumey evacuation. Once all the prostate chips were removed, the bladder was re-evaluating and noted to have no untoward injury. Additionally, the prostate channel was noted to have good hemostasis, with a wide open channel. The resectoscope was removed with the bladder full. A 22 Togolese couvalier three-way Prabhakar catheter was inserted without difficulty draining clear fluid. The bladder was again copiously irrigated via the prabhakar to ensure patency/ The 30 mL balloon was then filled, and continuous bladder irrigation with normal saline was initiated. Clear and easy drainage of NS from the main port was confirmed with CBI. All sponge needle and instrument count were correct at the end of the case. The patient tolerated the procedure well and was then taken to the recovery room in satisfactory condition. Findings: hemorrhagic prostate: requires TURP to control Discharge Disposition: PACU CC: Wing Victoria MD DICTATED BY: Wing Victoria MD DATE/TIME DICTATED:10/23/171630 WATERPROOFER HELPER:ANKIT DATE/TIME TRANSCRIBED:10/23/171630 REPORT NUMBER:[id number] Pertinent Lab Results: Laboratory Tests 10/27 10/26 0622 0858 Chemistry Sodium (137 - 145 mmol/L) 139 139 Potassium (3.5 - 5.1 mmol/L) 3.8 3.4 L Chloride (98 - 107 mmol/L) 102 100 Carbon Dioxide (22 - 30 mmol/L) 27 30 Anion Gap (5 - 16) 11 9 BUN (9 - 20 mg/dL) 7 L 5 L Creatinine (0.7 - 1.2 mg/dL) 0.8 0.7 Estimated GFR (>60 ml/min) > 60 > 60 BUN/Creatinine Ratio (7 - 25 %) 8.8 7.1 Hematology CBC w Diff NO MAN DIFF REQ WBC (4.8 - 10.8 /CUMM) 5.5 RBC (4.70 - 6.10 /CUMM) 3.28 L Hgb (14.0 - 18.0 G/DL) 9.7 L Hct (42 - 52 %) 28.7 L MCV (80.0 - 94.0 FL) 87.5 MCH (27.0 - 31.0 PG) 29.6 MCHC (33.0 - 37.0 G/DL) 33.9 RDW (11.5 - 14.5 %) 16.3 H Plt Count (130 - 400 /CUMM) 280 MPV (7.4 - 10.4 FL) 9.4 Gran % (42.2 - 75.2 %) 80.7 H Lymphocytes % (20.5 - 51.1 %) 10.9 L Monocytes % (1.7 - 9.3 %) 6.8 Eosinophils % (0 - 5 %) 1.5 Basophils % (0.0 - 2.0 %) 0.1 Absolute Granulocytes (1.4 - 6.5 /CUMM) 4.4 Absolute Lymphocytes (1.2 - 3.4 /CUMM) 0.6 L Absolute Monocytes (0.10 - 0.60 /CUMM) 0.4 Absolute Eosinophils (0.0 - 0.7 /CUMM) 0.1 Absolute Basophils (0.0 - 0.2 /CUMM) 0 10/26 10/26 0644 0120 Chemistry Sodium (137 - 145 mmol/L) 141 Potassium (3.5 - 5.1 mmol/L) 3.6 Chloride (98 - 107 mmol/L) 104 Carbon Dioxide (22 - 30 mmol/L) 27 Anion Gap (5 - 16) 10 BUN (9 - 20 mg/dL) 5 L Creatinine (0.7 - 1.2 mg/dL) 0.7 Estimated GFR (>60 ml/min) > 60 BUN/Creatinine Ratio (7 - 25 %) 7.1 Prealbumin (17.6 - 36.0 mg/dL) 6.4 L Hematology CBC w Diff NO MAN DIFF REQ NO MAN DIFF REQ WBC (4.8 - 10.8 /CUMM) 5.5 5.3 RBC (4.70 - 6.10 /CUMM) 3.08 L 3.07 L Hgb (14.0 - 18.0 G/DL) 9.1 L 8.9 L Hct (42 - 52 %) 27.0 L 26.6 L MCV (80.0 - 94.0 FL) 87.8 86.7 MCH (27.0 - 31.0 PG) 29.6 29.1 MCHC (33.0 - 37.0 G/DL) 33.7 33.6 RDW (11.5 - 14.5 %) 15.8 H 15.3 H Plt Count (130 - 400 /CUMM) 277 269 MPV (7.4 - 10.4 FL) 9.4 9.4 Gran % (42.2 - 75.2 %) 77.4 H 80.9 H Lymphocytes % (20.5 - 51.1 %) 13.7 L 11.2 L Monocytes % (1.7 - 9.3 %) 6.3 5.6 Eosinophils % (0 - 5 %) 2.0 2.0 Basophils % (0.0 - 2.0 %) 0.6 0.3 Absolute Granulocytes (1.4 - 6.5 /CUMM) 4.2 4.3 Absolute Lymphocytes (1.2 - 3.4 /CUMM) 0.7 L 0.6 L Absolute Monocytes (0.10 - 0.60 /CUMM) 0.3 0.3 Absolute Eosinophils (0.0 - 0.7 /CUMM) 0.1 0.1 Absolute Basophils (0.0 - 0.2 /CUMM) 0 0 10/25 0658 Chemistry Sodium (137 - 145 mmol/L) 143 Potassium (3.5 - 5.1 mmol/L) 3.5 Chloride (98 - 107 mmol/L) 108 H Carbon Dioxide (22 - 30 mmol/L) 28 Anion Gap (5 - 16) 7 BUN (9 - 20 mg/dL) 6 L Creatinine (0.7 - 1.2 mg/dL) 0.8 Estimated GFR (>60 ml/min) > 60 BUN/Creatinine Ratio (7 - 25 %) 7.5 Hematology CBC w Diff NO MAN DIFF REQ WBC (4.8 - 10.8 /CUMM) 5.5 RBC (4.70 - 6.10 /CUMM) 2.50 L Hgb (14.0 - 18.0 G/DL) 7.3 *L Hct (42 - 52 %) 21.8 L MCV (80.0 - 94.0 FL) 87.0 MCH (27.0 - 31.0 PG) 29.0 MCHC (33.0 - 37.0 G/DL) 33.3 RDW (11.5 - 14.5 %) 17.0 H Plt Count (130 - 400 /CUMM) 246 MPV (7.4 - 10.4 FL) 9.7 Gran % (42.2 - 75.2 %) 78.5 H Lymphocytes % (20.5 - 51.1 %) 13.7 L Monocytes % (1.7 - 9.3 %) 6.2 Eosinophils % (0 - 5 %) 1.3 Basophils % (0.0 - 2.0 %) 0.3 Absolute Granulocytes (1.4 - 6.5 /CUMM) 4.3 Absolute Lymphocytes (1.2 - 3.4 /CUMM) 0.8 L Absolute Monocytes (0.10 - 0.60 /CUMM) 0.3 Absolute Eosinophils (0.0 - 0.7 /CUMM) 0.1 Absolute Basophils (0.0 - 0.2 /CUMM) 0 CSF studies on 10/19/17: WBC- 0 RBC- 0 Clearity- Clear Glucose- 104 LDH- 151 Total protein- 66 VDRL- Nonreactive Cryptococcus Ab IFA- <1:1, Antibody not detected Cryptococcal Ag, Latex- Not detected JORGE virus- Negative 10/20/17: Toxoplasma IgG- <7.20, negative Toxoplasma IgM- <8.00, negative HSV 1, 2 DNA- Not detected HIV 1 RNA Quantitative Real Time PCR: HIV 1 RNA QN PCR- 59 (high) [ref range- not detable] HIV 1 RN QN PCR- 1.77 (high) [ref range- not detable] Viral culture- Influenza virus not detected 10/20/17: Absolute CD3 count- 580 (low) % CD3 mature T-lymphocyes- 80 % CD4 helper 2 (low) Absolute Cd4 count <20 (low) T-help/suppressor ration- 0.03 (low) % CD8 suppressor 77 (high) Absolute CD8 count 562 Disposition Summary Disposition Principal Diagnosis: Altered mentation, dementia likely with delirium. Atrial fibrillation, Hematuria and acute blood loss anemia, BPH and obstructive uropathy, Additional Diagnosis: Diabetes at this point diet controlled Hyperlipidemia Poor by mouth intake Discharge Disposition: SNF Discharge Instructions General Discharge Information Code Status: Do Not Resucitate/Intubat Patient's Diet: Diabetic diet: Mechanical soft (ground) for solids/ regular thin for liquid consistency. Encourage by mouth intake, feeding needed with all 3 meals Patient's Activity: As tolerated Follow-Up Instructions/Appts: Please follow-up with your primary care provider within one week of discharge and let them know about your recent admission at [facility]. Please follow-up with your altitude chamber technician within one week of discharge and let them know about your recent admission [facility]. Please follow-up with the urologist within one week of discharge, epifanio regarding removing the Prabhakar catheter. Please follow-up with your outpatient infectious disease doctor especially as his mentation improves to consider restarting his antiretroviral medications. Medications at Discharge Discharge Medications: Stop taking the following medications: Clopidogrel Bisulfate (Clopidogrel) 75 MG TABLET ORAL DAILY Qty = 90 Escitalopram Oxalate (Escitalopram Oxalate) 10 MG TABLET ORAL DAILY Qty = 30 Hydrochlorothiazide (Hydrochlorothiazide) 12.5 MG CAPSULE ORAL DAILY Qty = 30 Metoprolol Succinate (Metoprolol Succinate) 25 MG TAB ORAL DAILY Qty = 30 Darunavir/Cobicistat (Prezcobix 800 MG-150 MG Tablet) 800 MG-150 MG TABLET ORAL DAILY Qty = 30 Sitagliptin Phos/Metformin HCl (Janumet 50-1,000 MG Tablet) 50 MG-1,000 MG TABLET ORAL TWICE DAILY Qty = 60 Dolutegravir Sodium (Tivicay) 50 MG TABLET ORAL DAILY Qty = 30 Insulin Glargine,Hum.rec.anlog (Tocholocory Solprema) 300 UNIT/ML (1.5 ML) INSULN.PEN Inject into fatty tissue DAILY Qty = 9 Valacyclovir HCl (Valacyclovir) 1,000 MG TABLET ORAL DAILY Continue taking these medications: Tamsulosin HCl (Tamsulosin HCl) 0.4 MG CAP.ER.24H 1 Capsule ORAL DAILY Qty = 90 Comments: Last Taken: 10/29/17 Time: 12:15 PM Zolpidem Tartrate (Zolpidem Tartrate) 10 MG TABLET 1 Tablet ORAL Every night as needed Qty = 30 Comments: NOT GIVEN IN HOSPITAL Aspirin (Ecotrin*) 81 MG TABLET.DR 1 Tablet ORAL DAILY Comments: Last Taken: 10/29/17 Time: 12:15 PM Azithromycin (Azithromycin) 600 MG TABLET 2 Tablet ORAL EVERY THURSDAY Qty = 24 Comments: NOT GIVEN IN HOSPITAL Sulfamethoxazole/Trimethoprim (Sulfamethoxazole-Tmp Ds Tablet) 800 MG-160 MG TABLET 1 Tablet ORAL THURSDAY, THURSDAY AND THURSDAY Qty = 30 Comments: NOT GIVEN IN HOSPITAL Pantoprazole Sodium (Pantoprazole Sodium) 40 MG TABLET.DR 1 Tablet ORAL DAILY Qty = 90 Comments: NOT GIVEN IN HOSPITAL Pravastatin Sodium (Pravastatin Sodium) 10 MG TABLET 1 Tablet ORAL DAILY Qty = 90 Comments: Last Taken: 10/27/17 Time: 4:00 PM (LIPITOR 80MG GIVEN) Diclofenac Sodium (Voltaren) 1 % GEL..GRAM. 1 Application On the skin TWICE DAILY as needed for PAIN Qty = 300 Instructions: apply to affected area(s) Comments: NOT GIVEN IN HOSPITAL Pentoxifylline (Pentoxifylline) 400 MG TABLET.ER 1 Tablet ORAL DAILY Comments: Last Taken: 10/27/17 Time: 4:00 PM Ammonium Lactate (Ammonium Lactate) 12 % LOTION 1 Application On the skin TWICE DAILY Comments: Last Taken: 10/25/17 Time: 10:00 PM Desonide (Desowen) 0.05 % CREAM..G. 1 Application On the skin TWICE DAILY Instructions: apply to affected area(s) Comments: NOT GIVEN IN HOSPITAL Nut.tx.gluc.intoler,Lac-Fr,Soy (Glucerna) (Unknown Strength) LIQUID 1 Bottle ORAL TWICE DAILY Comments: NOT GIVEN IN HOSPTIAL Start taking the following new medications: Metoprolol Tartrate (Metoprolol Tartrate) 50 MG TABLET 1 Tablet ORAL TWICE DAILY Qty = 60 No Refills Comments: Last Taken: 10/29/17 Time: 12:15 PM Cyanocobalamin (Vitamin B-12) 1,000 MCG TABLET 1 Tablet ORAL DAILY Qty = 30 No Refills Comments: Last Taken: 10/26/17 Time: 10:00 AM Insulin Aspart (Novolog) 100 UNIT/ML VIAL 0 Inject into fatty tissue 3 TIMES DAILY BEFORE MEALS Qty = 1 No Refills Instructions: Sliding Scale Less than 80mg Initiate Hypoglycemia protocol 80-150 mg No change 151-200 1 unit 201-250 2 units 251-300 3 units 301-350 4 units 350-400 6 units >400 8 units amd call MD Comments: Last Taken: 10/26/17 Time: 12:30 PM Apixaban (Eliquis) 2.5 MG TABLET 1 Tablet ORAL TWICE DAILY Qty = 60 No Refills Copies To: Kenia BRAVO,Alfie Silva; Loretta BRAVO,Joe Wong; Rupert BRAVO,Jeff Villa; Lesley BRAVO,Scott Silva; Alan Shepherd APRN, MD,Steffi Haines MD PHD,[facility] HospitalAnthony
[2017-10-28 06:43] VITALS: BP 118/64
--- NOTE | 2017-10-28 07:12 | PN- Housestaff ---
Subjective Follow-up For: AMS Hematuria s/p cystoscopy FUO, resolved HIV, on HAART Rectal bleeding, microscopic Anemia Tele-Events Since Last Visit: Off telemetry Subjective: Patient states he feels fatigued and was unable to sleep last night because of the disturbance. Also does not have any appetite and took only a few sips of water for breakfast. Review of Systems Constitutional: Reports: malaise. EENTM: Reports: no symptoms. Cardiovascular: Reports: no symptoms. Respiratory: Reports: no symptoms. Gastrointestinal: Reports: no symptoms. Genitourinary: Reports: no symptoms. Musculoskeletal: Reports: no symptoms. Skin: Reports: no symptoms. Neurological/Psychological: Reports: no symptoms. Hematologic/Endocrine: Reports: no symptoms. Immunologic/Allergic: Reports: no symptoms. Objective Last 24 Hrs of Vital Signs/I&O Vital Signs Date Time Temp Pulse Resp B/P B/P Pulse O2 O2 Flow FiO2 Mean Ox Delivery Rate 10/28 0643 98.6 79 16 118/64 96 Room Air 10/27 2236 98.5 66 20 112/62 94 10/27 1445 98.5 101 20 130/70 96 Room Air Intake & Output 10/28 1600 10/28 0800 10/28 0000 Intake Total 110 110 Output Total 475 Balance -365 110 Intake, IV 10 10 Intake, Oral 100 100 Output, Urine 475 Physical Exam General Appearance: Alert, Oriented X3, Cooperative, No Acute Distress Skin: No Rashes, No Breakdown Cardiovascular: Regular Rate, Normal S1, Normal S2 Lungs: Clear to Auscultation Abdomen: Normal Bowel Sounds, Soft, No Tenderness Extremities: No Clubbing, No Cyanosis, No Edema Current Medications: Current Medications Sig/Juma Start time Last Medication Dose Route Stop Time Status Admin Acetaminophen 1,000 MG Q6P PRN 10/15 1730 AC 10/18 N/A 1 UNIT IV 1653 Ammonium Lactate 1 DILLAN BID 10/10 1000 AC 10/25 TOP 2213 Apixaban 2.5 MG BID 10/26 1327 AC 10/27 PO 1549 Aspirin 81 MG DAILY 10/26 1327 AC 10/27 PO 1600 Atorvastatin Calcium 80 MG 1700 10/14 1700 AC 10/27 PO 1601 Cholecalciferol 1,000 IU DAILY 10/12 1445 AC 10/26 PO 0958 Cyanocobalamin 1,000 MCG DAILY 10/25 1000 AC PO Famotidine 20 MG DAILY 10/14 1101 AC 10/25 PO 1117 Insulin Aspart 0 TIDAC 10/26 1200 AC 10/26 SC 1223 Metoprolol Tartrate 50 MG BID 10/18 2359 AC 10/27 PO 1552 Multivitamins 1 TAB DAILY 10/12 1530 AC 10/23 PO 2025 Nystatin 5 ML 4 TIMES/DAY 10/24 1504 AC 10/27 PO 1603 Ondansetron HCl 4 MG Q6P PRN 10/11 1330 AC 10/22 IV 1210 Pentoxifylline 400 MG DAILY 10/10 1000 AC 10/27 PO 1558 Tamsulosin HCl 0.4 MG DAILY 10/10 1000 AC 10/27 PO 1552 Trimethoprim/ 1 TAB 10/26 1000 AC Sulfamethoxazole PO Last 24 Hrs of Lab/Lam Results Last 24 Hrs of Labs/Mics: Laboratory Tests 10/28/17 0616: Anion Gap 12, Estimated GFR > 60, BUN/Creatinine Ratio 12.2, CBC w Diff NO MAN DIFF REQ, RBC 3.35 L, MCV 88.2, MCH 29.8, MCHC 33.8, RDW 16.7 H, MPV 9.4, Gran % 76.9 H, Lymphocytes % 15.0 L, Monocytes % 7.5, Eosinophils % 0.5, Basophils % 0.1, Absolute Granulocytes 4.4, Absolute Lymphocytes 0.9 L, Absolute Monocytes 0.4, Absolute Eosinophils 0, Absolute Basophils 0 Microbiology 10/28 1342 URINE ROUT: Urine Culture - COLB Assessment/Plan Assessment: 82-year-old male with past medical history significant for coronary artery disease status post OR, stent placement on dual antiplatelet regimen, HIV with CD4 count 82 on prophylactic antibiotics Bactrim, azithromycin, Prezcobix, dolutegravir, depression, hypertension, type 2 diabetes mellitus, GERD, BPH, recently discharged for fever of unknown origin, retroperitoneal lymphadenopathy questionable lymphoma presenting to the emergency room for left hip pain status post fall x2. Problem List: # Decreased oral intake; - Patient continues to have low appetite and very low oral intake. Also refused his meds. - Might need a PEG tube placement which needs to be discussed with the daughter. #Anemia (Acute blood loss); s/p 4 units blood transfusions throughout the hospitalization. - Currently H&H remains stable. - Anemia may be secondary to multiple factors including ongoing hematuria, however acute change with blood bowel movement is concerning for possible GI bleed. - GI consulted for further recommendations. - Goal H&H > 8/24. - Continue to monitor H&H #Hypernatremia - Resolved. - Continue to monitor. #Hematuria; resolved - No abx per ID. - Off CBI, Would dc home with prabhakar for hematuria\tamponade for one more week. - Outpatient f/u evy Victoria in 1-2 weeks. - We will repeat urine culture today. #Altered mental status/hematuria - Patient was transferred to [facility] for evaluation of possible stroke/sudden onset of altered mental status. CT Head showed possible evolving infarct however MRI was negative. Neurology consulted did not warrant TPA treatment as no neurological deficit and unkonw time of onset. Patient is more awake, alert and oriented 2. He does have periods of confusion on and off. - Fall precautions. #Acute renal failure, likely from contrast use-which is resolved now. - Patient had acute renal failure secondary to contrast-induced nephropathy. - Avoid nephrotoxins. - Avoid hydrochlorothiazide #fall - Hip x-ray, pelvic x-ray, lumbar spine x-ray, head/ cervical spine CT negative for acute fractures VitD /B12 levels low. On vitamin D and calcium supplementation. - Continue vit D and multivtiamin supplmentation - PT recommends STR #FUO * Resolved. Ucx and blood cx , blood cultures, sputum culture thus far negative * Rapid flu negative. IR guided lumbar puncture done. We will follow up with cultures. * CT Ab/pelvis w/ contrast did not show active infectious source including collection. * Continue azithromycin and Bactrim for prophylaxis. * continue HIV medications * Tylenol 650mg as needed. * Patient urine culture is growing yeast, which was likely colonization. Patient received only 1 dose of fluconazole. #HIV * Last CD4 count 82 * continue prescobix and dolutragravir daily. * continue Bactrim, azithromycin, valacyclovir for prophylaxis. #DM * We will continue NovoLog coverage every 4 hours. #Coronary artery disease status post stent placement -continue aspirin, statin, Plavix #Peripheral vascular disease -continue pentoxifylline 400 mg daily #Depression * Lexapro was discontinued per psychiatry given his prolonged QTC. She was seen by psychiatry yesterday who suggested that his altered mental status can be due to underlying dementia with superimposed delirium. Advised to avoid delirium triggers. Psychiatry follow-up appreciated. #Hypertension * continue metoprolol. * hold hydrochlorothiazide #GERD * continue omeprazole #BPH s/p TURP * continue tamsulosin #Insomnia * continue zolpidem as needed for sleep #CODE STATUS changed to DNR/DNI after discussion with the daughter. #DVT prophylaxis Alps only(because of hematuria) Problem List: 1. HIV positive 2. Dementia 3. Malnutrition 4. ORTIZ (acute kidney injury) 5. Fever of unknown origin 6. Hematuria Pain Ratin Pain Location: None Pain Goal: Remain pain free Pain Plan: Pain pathway Tomorrow's Labs & Rationales: BEP(poor oral intake)
--- NOTE | 2017-10-28 07:39 | PN- Urology ---
Surgical Brief Attending Note Brief Attending Note: vss, afebrile off abx. would repeat culture now. urine output remains clear yellow-however, prefer to keep prabhakar until next week. dc plan ok for rehab.
[2017-10-28 08:16] LABS: ABSOLUTE BASOPHIL COUNT 0 /CUMM (0.0-0.2); ABSOLUTE EOSINOPHIL COUNT 0 /CUMM (0.0-0.7); ABSOLUTE GRANULOCYTE CT 4.4 /CUMM (1.4-6.5); ABSOLUTE LYMPH COUNT 0.9 /CUMM (1.2-3.4); ABSOLUTE MONOCYTE COUNT 0.4 /CUMM (0.10-0.60); BASOPHIL % 0.1 % (0.0-2.0); EOSINOPHIL % 0.5 % (0-5); GRANULOCYTE % 76.9 % (42.2-75.2); HEMATOCRIT 29.5 % (42-52); MEAN CORPUSCULAR HGB 29.8 PG (27.0-31.0); MEAN CORPUSCULAR HGB CONC 33.8 G/DL (33.0-37.0); MEAN CORPUSCULAR VOLUME 88.2 FL (80.0-94.0); MEAN PLATELET VOLUME 9.4 FL (7.4-10.4); PLATELET COUNT 309 /CUMM (130-400); RBC DISTRIBUTION WIDTH 16.7 % (11.5-14.5); RED BLOOD CELL CT 3.35 /CUMM (4.70-6.10); WHITE BLOOD CELL COUNT 5.8 /CUMM (4.8-10.8)
--- NOTE | 2017-10-28 13:59 | PN- Att Addend ---
Attending Addendum Attending Brief Note Patient seen and examined. Agree with pricing intern's note. I am worried that patient is having very poor by mouth intake and refusing most of his medications. He tends to agree when his daughter is here but then refuses when she is not there. Will need to talk to the daughter today because if this continues then likely readmissions will be an issue with dehydration and other complications.
[2017-10-28 14:24] VITALS: BP 126/68
[2017-10-28 19:49] VITALS: BP 132/64
[2017-10-28 22:17] VITALS: BP 128/66
[2017-10-29 06:41] VITALS: BP 130/70
--- NOTE | 2017-10-29 07:18 | PN- Housestaff ---
Natalie BRAVO,[facility] 10/29/17 0717: Subjective Follow-up For: AMS Hematuria s/p cystoscopy FUO, resolved HIV, on HAART Rectal bleeding, microscopic Anemia Subjective: Patient denies any chest pain, palpitations, SOB, cough or sputum production. Still does not have an appetite and did not eat anything for breakfast. Review of Systems Constitutional: Reports: malaise. Cardiovascular: Reports: no symptoms. Respiratory: Reports: no symptoms. Gastrointestinal: Reports: no symptoms. Genitourinary: Reports: no symptoms. Objective Last 24 Hrs of Vital Signs/I&O Vital Signs Date Time Temp Pulse Resp B/P B/P Pulse O2 O2 Flow FiO2 Mean Ox Delivery Rate 10/29 1309 98.4 76 20 130/70 10/29 1216 76 130/70 10/29 1216 76 130/70 10/29 0910 76 130/70 10/29 0910 76 130/70 10/29 0641 98.4 77 20 130/70 98 Room Air 10/28 2217 97.9 82 20 128/66 99 Room Air 10/28 2154 84 132/64 10/28 1949 98.3 84 20 132/64 93 Room Air 10/28 1714 88 126/74 10/28 1424 98.4 89 18 126/68 96 Room Air Intake & Output 10/29 1600 10/29 0800 10/29 0000 Intake Total 10 Output Total 350 400 Balance -340 -400 Intake, IV 10 Intake, Oral 0 Number 0 Bowel Movements Output, Urine 350 400 Physical Exam General Appearance: Alert, Cooperative, No Acute Distress Skin: No Rashes, No Breakdown Cardiovascular: Regular Rate, Normal S1, Normal S2 Lungs: Normal Air Movement Abdomen: Normal Bowel Sounds, Soft, No Tenderness Extremities: No Clubbing, No Cyanosis, No Edema Current Medications: Current Medications Sig/Juma Start time Last Medication Dose Route Stop Time Status Admin Acetaminophen 1,000 MG Q6P PRN 10/15 1730 AC 10/18 N/A 1 UNIT IV 1653 Ammonium Lactate 1 DILLAN BID 10/10 1000 AC 10/25 TOP 2213 Apixaban 2.5 MG BID 10/26 1327 AC 10/29 PO 1215 Aspirin 81 MG DAILY 10/26 1327 AC 10/29 PO 1215 Atorvastatin Calcium 80 MG 1700 10/14 1700 AC 10/27 PO 1601 Cholecalciferol 1,000 IU DAILY 10/12 1445 AC 10/26 PO 0958 Cyanocobalamin 1,000 MCG DAILY 10/25 1000 AC PO Famotidine 20 MG DAILY 10/14 1101 AC 10/25 PO 1117 Insulin Aspart 0 TIDAC 10/26 1200 AC 10/26 SC 1223 Metoprolol Tartrate 50 MG BID 10/18 2359 AC 10/29 PO 1216 Multivitamins 1 TAB DAILY 10/12 1530 AC 10/23 PO 2025 Nystatin 5 ML 4 TIMES/DAY 10/24 1504 DC 10/27 PO 1603 Ondansetron HCl 4 MG .STK-MED ONE 10/28 1708 DC IM 10/28 1709 Ondansetron HCl 4 MG Q6P PRN 10/11 1330 AC 10/28 IV 1715 Pentoxifylline 400 MG DAILY 10/10 1000 AC 10/27 PO 1558 Potassium Chloride 10 MEQ Q1H 10/29 0730 DC 10/29 IV 10/29 0831 0953 Tamsulosin HCl 0.4 MG DAILY 10/10 1000 AC 10/29 PO 1216 Trimethoprim/ 1 TAB 10/26 1000 AC Sulfamethoxazole PO Last 24 Hrs of Lab/Lam Results Last 24 Hrs of Labs/Mics: Microbiology 10/28 1755 URINE ROUT: Urine Culture - RES Assessment/Plan Assessment: 82-year-old male with past medical history significant for coronary artery disease status post [place], stent placement on dual antiplatelet regimen, HIV with CD4 count 82 on prophylactic antibiotics Bactrim, azithromycin, Prezcobix, dolutegravir, depression, hypertension, type 2 diabetes mellitus, GERD, BPH, recently discharged for fever of unknown origin, retroperitoneal lymphadenopathy questionable lymphoma presenting to the emergency room for left hip pain status post fall x2. Problem List: # Decreased oral intake; - Patient continues to have low appetite and very low oral intake. Also refused his meds. - Might need a PEG tube placement which needs to be discussed with the daughter. #Anemia (Acute blood loss); s/p 4 units blood transfusions throughout the hospitalization. - Currently H&H remains stable. - Anemia may be secondary to multiple factors including ongoing hematuria, however acute change with blood bowel movement is concerning for possible GI bleed. - GI consulted for further recommendations. - Goal H&H > 8/24. - Continue to monitor H&H #Hypernatremia - Resolved. - Continue to monitor. #Hematuria; resolved - No abx per ID. - Off CBI, Would dc home with prabhakar for hematuria\tamponade for one more week. - Outpatient f/u evy Victoria in 1-2 weeks. - Repeat urine culture remains negative. #Altered mental status/hematuria - Patient was transferred to [facility] for evaluation of possible stroke/sudden onset of altered mental status. CT Head showed possible evolving infarct however MRI was negative. Neurology consulted did not warrant TPA treatment as no neurological deficit and unkonw time of onset. Patient is more awake, alert and oriented 2. He does have periods of confusion on and off. - Fall precautions. #Acute renal failure, likely from contrast use-which is resolved now. - Patient had acute renal failure secondary to contrast-induced nephropathy. - Avoid nephrotoxins. - Avoid hydrochlorothiazide #fall - Hip x-ray, pelvic x-ray, lumbar spine x-ray, head/ cervical spine CT negative for acute fractures VitD /B12 levels low. On vitamin D and calcium supplementation. - Continue vit D and multivtiamin supplmentation - PT recommends STR #FUO - Resolved. Ucx and blood cx , blood cultures, sputum culture thus far negative - Rapid flu negative. IR guided lumbar puncture done. We will follow up with cultures. - CT Ab/pelvis w/ contrast did not show active infectious source including collection. - Continue azithromycin and Bactrim for prophylaxis. - HIV medications on hold for now. - Tylenol 650mg as needed. - Patient's previous urine culture was growing yeast, which was likely from colonization. Patient received only 1 dose of fluconazole. #HIV - Last CD4 count 82 - Antiretrovirals held for now since patient is refusing his medications. Will reevaluate once patient appetite and PO intake improves. - Continue Bactrim, azithromycin, valacyclovir for prophylaxis. #DM * We will continue NovoLog coverage every 4 hours. #Coronary artery disease status post stent placement -continue aspirin, statin, Plavix #Peripheral vascular disease -continue pentoxifylline 400 mg daily #Depression - Lexapro was discontinued per psychiatry given his prolonged QTC. She was seen by psychiatry who suggested that his altered mental status can be due to underlying dementia with superimposed delirium. Advised to avoid delirium triggers. Psychiatry follow-up appreciated. #Hypertension - Continue metoprolol. - Hold hydrochlorothiazide #GERD - Continue omeprazole #BPH s/p TURP - Continue tamsulosin #Insomnia - Continue zolpidem as needed for sleep #CODE STATUS changed to DNR/DNI after discussion with the daughter. #DVT prophylaxis Alps only(because of hematuria) Problem List: 1. Atrial fibrillation 2. HIV positive 3. Dementia 4. B12 deficiency 5. Malnutrition 6. Anemia 7. Fever of unknown origin 8. Hematuria Pain Ratin Pain Location: None Pain Goal: Remain pain free Pain Plan: None Tomorrow's Labs & Rationales: None [place] BRAVO,Soledad 10/29/17 1404: Attending MD Review Statement Attending Statement Attending MD Statement: examined this patient, discuss w/resident/PA/MOLECULAR GENETICIST, agreed w/resident/PA/MOLECULAR GENETICIST, discussed with family, reviewed EMR data (avail), discussed with nursing, reviewed images Attending Assessment/Plan: Patient had a fairly uneventful night. He was transferred up to [facility] from telemetry. He had a fall monitor but didn't require any interventions. In fact the director of digital marketing was watching another patient. I spoke to the patient's daughter at length as stated yesterday and at this point he is DNR/DNI and she is aware that if his status continues to deteriorate then she may consider comfort at that point. I explained at length the to decrease the Pill burden and in view of the advanced dementia we are trying to minimize the number of medications. But if his mentation should improve and at that point the antiretrovirals can be restarted.
[2017-10-29] MEDS ORDERED: METOPROLOL TART50 M1 PO (09:52)
[2017-10-29] MEDS ORDERED: VITAMIN B-121000 MC3 PO (11:37)
[2017-10-29] MEDS ORDERED: NOVOLOG100 UNIT/2 SC (11:37)
[2017-10-29 13:09] VITALS: BP 130/70
[2017-10-29 14:13] VITALS: BP 128/62
[2017-10-29 22:05] VITALS: BP 118/64
[2017-10-30 06:49] VITALS: BP 114/58
--- NOTE | 2017-10-30 07:25 | PN- Housestaff ---
Natalie BRAVO,[facility] 10/30/17 0725: Subjective Follow-up For: AMS Hematuria s/p cystoscopy FUO, resolved HIV, on HAART Rectal bleeding, microscopic Anemia Subjective: Patient denies any active complaints except that he feels lethargic. He did not eat his breakfast this morning as he continues to have very poor appetite. Review of Systems Constitutional: Reports: no symptoms. Objective Last 24 Hrs of Vital Signs/I&O Vital Signs Date Time Temp Pulse Resp B/P B/P Pulse O2 O2 Flow FiO2 Mean Ox Delivery Rate 10/30 1231 110 122/62 10/30 0649 100.3 89 20 114/58 94 Room Air 10/29 2205 98.4 73 18 118/64 93 Room Air Intake & Output 10/30 1600 10/30 0800 10/30 0000 Intake Total 480 0 10 Output Total 375 Balance 480 -375 10 Intake, IV 0 10 Intake, Oral 480 0 0 Number 0 0 Bowel Movements Output, Urine 375 Physical Exam General Appearance: Alert, Cooperative, No Acute Distress Skin: No Rashes, No Breakdown Cardiovascular: Regular Rate, Normal S1, Normal S2 Lungs: Normal Air Movement Abdomen: Normal Bowel Sounds, Soft, No Tenderness Extremities: No Clubbing, No Cyanosis, No Edema Current Medications: Current Medications Sig/Juma Start time Last Medication Dose Route Stop Time Status Admin Acetaminophen 1,000 MG Q6P PRN 10/15 1730 AC 10/18 N/A 1 UNIT IV 1653 Ammonium Lactate 1 DILLAN BID 10/10 1000 AC 10/25 TOP 2213 Apixaban 2.5 MG BID 10/26 1327 AC 10/29 PO 1215 Aspirin 81 MG DAILY 10/26 1327 AC 10/29 PO 1215 Atorvastatin Calcium 80 MG 1700 10/14 1700 AC 10/27 PO 1601 Cholecalciferol 1,000 IU DAILY 10/12 1445 AC 10/26 PO 0958 Cyanocobalamin 1,000 MCG DAILY 10/25 1000 AC PO Famotidine 20 MG DAILY 10/14 1101 AC 10/25 PO 1117 Insulin Aspart 0 TIDAC 10/26 1200 AC 10/26 SC 1223 Metoprolol Tartrate 50 MG BID 10/18 2359 AC 10/30 PO 1231 Multivitamins 1 TAB DAILY 10/12 1530 AC 10/23 PO 2025 Ondansetron HCl 4 MG Q6P PRN 10/11 1330 AC 10/28 IV 1715 Pentoxifylline 400 MG DAILY 10/10 1000 AC 10/27 PO 1558 Tamsulosin HCl 0.4 MG DAILY 10/10 1000 AC 10/29 PO 1216 Trimethoprim/ 1 TAB 10/26 1000 DC Sulfamethoxazole PO Last 24 Hrs of Lab/Lam Results Last 24 Hrs of Labs/Mics: Microbiology 10/30 1100 STOOL: Clostridium difficile Toxin A & B - RES 10/30 1100 STOOL: Stool Culture - RES Assessment/Plan Assessment: 82-year-old male with past medical history significant for coronary artery disease status post [place], stent placement on dual antiplatelet regimen, HIV with CD4 count 82 on prophylactic antibiotics Bactrim, azithromycin, Prezcobix, dolutegravir, depression, hypertension, type 2 diabetes mellitus, GERD, BPH, recently discharged for fever of unknown origin, retroperitoneal lymphadenopathy questionable lymphoma presenting to the emergency room for left hip pain status post fall x2. Problem List: # Decreased oral intake; - Patient continues to have low appetite and very low oral intake. Also refused his meds. Option of PEG tube placement was discussed with the daughter. #Anemia (Acute blood loss); s/p 4 units blood transfusions throughout the hospitalization. - Currently H&H remains stable. - Anemia may be secondary to multiple factors including ongoing hematuria, however acute change with blood bowel movement is concerning for possible GI bleed. - GI consulted for further recommendations. - Goal H&H > 8/24. - Continue to monitor H&H #Hypernatremia - Resolved. - Continue to monitor. #Hematuria; resolved - No abx per ID. - Off CBI, Would dc home with prabhakar for hematuria\tamponade for one more week. - Outpatient f/u evy Victoria in 1-2 weeks. - Repeat urine culture remains negative. #Altered mental status/hematuria - Patient was transferred to [facility] for evaluation of possible stroke/sudden onset of altered mental status. CT Head showed possible evolving infarct however MRI was negative. Neurology consulted did not warrant TPA treatment as no neurological deficit and unkonw time of onset. Patient is more awake, alert and oriented 2. He does have periods of confusion on and off. - Fall precautions. #Acute renal failure, likely from contrast use-which is resolved now. - Patient had acute renal failure secondary to contrast-induced nephropathy. - Avoid nephrotoxins. - Avoid hydrochlorothiazide #fall - Hip x-ray, pelvic x-ray, lumbar spine x-ray, head/ cervical spine CT negative for acute fractures VitD /B12 levels low. On vitamin D and calcium supplementation. - Continue vit D and multivtiamin supplmentation - PT recommends STR #FUO - Resolved. Ucx and blood cx , blood cultures, sputum culture thus far negative - Rapid flu negative. IR guided lumbar puncture done. We will follow up with cultures. - CT Ab/pelvis w/ contrast did not show active infectious source including collection. - Continue azithromycin and Bactrim for prophylaxis. - HIV medications on hold for now. - Tylenol 650mg as needed. - Patient's previous urine culture was growing yeast, which was likely from colonization. Patient received only 1 dose of fluconazole. - Patient had an episode of loose stools and low-grade fever of 100.3 this morning. C. difficile was sent which came back negative. No further episodes of diarrhea reported. #HIV - Last CD4 count 82 - Antiretrovirals held for now since patient is refusing his medications. Will reevaluate once patient appetite and PO intake improves. - Continue Bactrim, azithromycin, valacyclovir for prophylaxis. #DM * We will continue NovoLog coverage every 4 hours. #Coronary artery disease status post stent placement -continue aspirin, statin, Plavix #Peripheral vascular disease -continue pentoxifylline 400 mg daily #Depression - Lexapro was discontinued per psychiatry given his prolonged QTC. She was seen by psychiatry who suggested that his altered mental status can be due to underlying dementia with superimposed delirium. Advised to avoid delirium triggers. Psychiatry follow-up appreciated. #Hypertension - Continue metoprolol. - Hold hydrochlorothiazide #GERD - Continue omeprazole #BPH s/p TURP - Continue tamsulosin #Insomnia - Continue zolpidem as needed for sleep #CODE STATUS changed to DNR/DNI after discussion with the daughter. #DVT prophylaxis Alps only(because of hematuria) Problem List: 1. Atrial fibrillation 2. HIV positive 3. Dementia 4. B12 deficiency 5. Malnutrition 6. Adenopathy 7. Diabetes 8. Fever of unknown origin 9. Hematuria Pain Ratin Pain Location: None Pain Goal: Remain pain free Pain Plan: None Tomorrow's Labs & Rationales: None Consulting Request: Consulting Specialty: Psychiatry Consulting Physician: Jovany Cora OIL FIELD EQUIPMENT MECHANIC Reason for Consult: altered mental status and dementia [place] BRAVO,Soledad 10/30/17 1430: Attending MD Review Statement Attending Statement Attending MD Statement: examined this patient, discuss w/resident/PA/EMISSIONS ENGINEER, agreed w/resident/PA/EMISSIONS ENGINEER, discussed with family, reviewed EMR data (avail), discussed with nursing, discussed with case mgmt, reviewed images Attending Assessment/Plan: Pt had one isolated temperature reading of 100.3. He has no cough, no sputum, his urine in the Prabhakar bag appears clear and he had one loose bowel movement, we checked C. difficile and it was negative. His daughter was at the bedside and she was feeding him grapefruit. We spoke at length. He's been accepted at [facility] and the plan is that he'll leave today. His daughter as stated in the discharge summary, clearly understands that given the dementia, poor by mouth intake delirium and AIDS he has very poor prognosis. She will consider how he does in the correction and if he deteriorates she may make him comfort measures. She is realistic but hopeful. Also understands the need for close outpatient follow-up and especially urology follow-up since he is leaving with a Prabhakar.
[2017-10-30] MEDS ORDERED: ELIQUIS2.5 M1 PO (13:42)
[2017-10-30 15:18] VITALS: BP 110/54
[2017-10-30 16:09] VITALS: BP 130/70
== END 2017-10-30 16:30 | DRG 665 ==
LOC: ERH 23:54 → 2NA 10-10 03:17 → ERHI 10-10 03:17 → ENRESERV 10-10 04:12 → 2NA 10-10 05:57 → 2NB 10-12 10:09 → 1NO 10-12 10:09 → 2NA 10-12 11:42 → 1NO 10-14 10:55 → ENTRNSPT 10-17 14:01 → EDTRNSPTSTS 10-17 14:44 → EDTRNSPT 10-17 14:44 → 2NA 10-17 14:56 → CMPTRNSPT 10-17 15:04 → 1NO 10-17 22:30 → ENTRNSPT 10-23 14:45 → EDTRNSPT 10-23 14:49 → EDTRNSPTSTS 10-23 14:49 → CMPTRNSPT 10-23 15:16 → 1NO 10-24 12:20 → 2NB 10-28 19:19 → ENPENDDIS 10-30 14:00 → 2NB 10-30 16:30
PROVIDERS: Dermatology; Internal Medicine; Pediatrics; Radiology Vascular & Interventional Radiology; Student in an Organized Health Care Education/Training Program
PROC: 009U3ZX Drainage of Spinal Canal, Percutaneous Approach, Diagnostic (ICD-10-PCS; principal; 2017-10-19)
PROC: 0VT08ZZ Resection of Prostate, Via Natural or Artificial Opening Endoscopic (ICD-10-PCS; 2017-10-23)
PROC: 0TCB8ZZ Extirpation of Matter from Bladder, Via Natural or Artificial Opening Endoscopic (ICD-10-PCS; 2017-10-23)
DX: N17.9 Acute kidney failure, unspecified (principal); B20 Human immunodeficiency virus [HIV] disease; G93.40 Encephalopathy, unspecified; E11.649 Type 2 diabetes mellitus with hypoglycemia without coma; I48.91 Unspecified atrial fibrillation; D62 Acute posthemorrhagic anemia; R50.9 Fever, unspecified; R31.9 Hematuria, unspecified; I25.10 Atherosclerotic heart disease of native coronary artery without angina pectoris; Z95.5 Presence of coronary angioplasty implant and graft; R59.1 Generalized enlarged lymph nodes; E87.6 Hypokalemia; N14.4 Toxic nephropathy, not elsewhere classified; Y92.239 Unspecified place in hospital as the place of occurrence of the external cause; T50.8X4A Poisoning by diagnostic agents, undetermined, initial encounter; N40.0 Benign prostatic hyperplasia without lower urinary tract symptoms; N32.89 Other specified disorders of bladder; N21.0 Calculus in bladder; I25.2 Old myocardial infarction; I10 Essential (primary) hypertension; G47.00 Insomnia, unspecified; Z66 Do not resuscitate; E78.5 Hyperlipidemia, unspecified; K21.9 Gastro-esophageal reflux disease without esophagitis; F32.9 Major depressive disorder, single episode, unspecified
CPT/HCPCS: 1NP; 1NSP; 2NASP; 2NBP; 70551; 86359; 86403; 86592; 86641; 86777; 86778; 87070; 87205; 87529; 87799; 36415; 71045; 72100; 72170; 73502-LT; 74177; 76775; 77002; 81001; 82436; 86920; 87040; 87045; 87086; 87088; 87536; 87804; 87804-59; 88305; 93005; 93010; 93306; 94799; 95816; 96374; 97110-GO; 97116-GO; 97161-GP; 97164-GP; 97166-GO; 97530-GO; 97530-GP; 99233; 99291; G8978-GP; G8979-GP; J0131; J0696; J1450; J1644; J2310; J2405; J3490; J7040; J7042; P9016; S5012

== ENCOUNTER 2017-10-30 20:38 | Inpatient (IN) | payer OTHER ==
[~2017-10-30] VITALS: Ht 170.2 cm; Wt 70.4 kg
[~2017-10-30 20:38] MED LIST changes: +ELIQUIS2.5 M1 PO; +METOPROLOL TART50 M1 PO; +NOVOLOG100 UNIT/2 SC; +VITAMIN B-121000 MC3 PO
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
[2017-10-30 22:02] LABS: ABSOLUTE BASOPHIL COUNT 0 /CUMM (0.0-0.2); ABSOLUTE EOSINOPHIL COUNT 0 /CUMM (0.0-0.7); ABSOLUTE GRANULOCYTE CT 2.3 /CUMM (1.4-6.5); ABSOLUTE LYMPH COUNT 0.3 /CUMM (1.2-3.4); ABSOLUTE MONOCYTE COUNT 0.3 /CUMM (0.10-0.60); BASOPHIL % 0.4 % (0.0-2.0); EOSINOPHIL % 0.1 % (0-5); GRANULOCYTE % 78.2 % (42.2-75.2); HEMATOCRIT 27.5 % (42-52); MEAN CORPUSCULAR HGB 29.3 PG (27.0-31.0); MEAN CORPUSCULAR HGB CONC 33.7 G/DL (33.0-37.0); MEAN PLATELET VOLUME 9.3 FL (7.4-10.4); PLATELET COUNT 234 /CUMM (130-400); RBC DISTRIBUTION WIDTH 16.4 % (11.5-14.5); RED BLOOD CELL CT 3.17 /CUMM (4.70-6.10)
[2017-10-30 22:12] LABS: PT 27.7 SEC (9.4-12.5); PTT 38 SEC (25-37)
--- NOTE | 2017-10-30 22:25 | RADIOLOGY REPORT ---
EXAMINATION: XR PORTABLE CHEST CLINICAL INFORMATION: Pneumonia fever COMPARISON: Chest CT 10/19/2017. Portable chest 10/16/2017. TECHNIQUE: Portable frontal view of the chest was obtained. FINDINGS: There is increased opacity at the left base which could reflect atelectasis or evolving infiltrate or pneumonia The right lung remains clear. The cardiac silhouette mediastinum pulmonary vascularity are normal. IMPRESSION: Increased opacity at the left base which could reflect evolving infiltrate or pneumonia versus atelectasis.
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
[2017-10-31 06:00] VITALS: BP 130/72
--- NOTE | 2017-10-31 08:30 | PN- Housestaff ---
Harjinder Nunez 10/31/17 0829: Subjective Follow-up For: HCAP nonspecific ECG changes Tele-Events Since Last Visit: NSR, t-wave inversions HR 66-81 Subjective: Fever this morning 101.6 Review of Systems Constitutional: Reports: see HPI. Objective Last 24 Hrs of Vital Signs/I&O Vital Signs Date Time Temp Pulse Resp B/P B/P Pulse O2 O2 Flow FiO2 Mean Ox Delivery Rate 10/31 1308 99.1 10/31 0918 98.6 10/31 0708 101.6 10/31 0600 101.6 101 22 130/72 96 10/31 0234 97 Room Air 10/31 0209 97.4 62 18 107/54 99 Room Air 10/30 2300 99.7 89 16 114/59 100 Room Air 10/30 2132 Room Air 10/30 2049 99.5 98 18 98 Room Air 10/30 2049 99.2 95 16 100/58 95 Room Air Intake & Output 10/31 1600 10/31 0800 10/31 0000 Intake Total 75 0 Output Total Balance 75 0 Intake, IV 75 Intake, Oral 0 Patient 155 lb Weight Physical Exam General Appearance: Lethargic Cardiovascular: Regular Rate, Normal S1, Normal S2 Lungs: Clear to Auscultation, Normal Air Movement Abdomen: Normal Bowel Sounds, Soft, No Tenderness Extremities: No Edema Current Medications: Current Medications Sig/Juma Start time Last Medication Dose Route Stop Time Status Admin Acetaminophen 650 MG Q6P PRN 10/31 0030 AC 10/31 PO 0708 Ammonium Lactate 1 DILLAN DAILY 10/31 1000 AC 10/31 TOP 1409 Apixaban 2.5 MG BID 10/31 1000 AC 10/31 PO 1226 Aspirin Buffered 81 MG DAILY 10/31 1000 AC 10/31 PO 1226 Azithromycin 1,250 MG QSUN 11/01 0700 AC PO Ceftazidime 1,000 MG Q8H 10/31 1030 AC 10/31 IV 0914 Ceftazidime 1,000 MG IQ8 10/31 0800 DC IV Ceftazidime 0 .STK-MED ONE 10/31 0219 DC .ROUTE Ceftazidime 1,000 MG ONCE ONE 10/30 2315 DC 10/31 IV 10/30 2316 0230 Cyanocobalamin 1,000 MCG DAILY 10/31 1000 AC 10/31 PO 1226 Diclofenac Sodium 1 DILLAN BID PRN 10/31 0300 AC TOP Heparin Sodium 5,000 UNIT Q8 10/31 0600 DC (Porcine) SC Insulin Aspart 0 TIDAC 10/31 0800 AC SC Metoprolol Tartrate 50 MG BID 10/31 1000 AC 10/31 PO 1226 Non-Formulary 0 SEE ADMIN CRITERIA 10/31 0315 CAN Medication ANY Non-Formulary 0 SEE ADMIN CRITERIA 10/31 0315 CAN Medication ANY Oseltamivir Phosphate 75 MG BID 10/31 1427 UNVr PO 11/04 1426 Pantoprazole Sodium 40 MG DAILY 10/31 1000 AC 10/31 IV 0901 Pentoxifylline 400 MG DAILY 10/31 1000 AC 10/31 PO 1226 Pravastatin Sodium 10 MG 1700 10/31 1700 AC PO Sodium Chloride 1,000 ML Q13H 10/31 0030 AC 10/31 IV 11/01 0229 0441 Sodium Chloride 500 ML BOLUS ONE 10/30 2115 DC 10/30 IV 10/30 2214 2150 Tamsulosin HCl 0.4 MG DAILY 10/31 1000 AC 10/31 PO 1226 Trimethoprim/ 1 TAB THURSDAY WED THURSDAY 11/02 1000 AC Sulfamethoxazole PO Vancomycin HCl 1,000 MG Q24H 11/01 0230 AC Dextrose/Water 250 ML IV Vancomycin HCl 1,000 MG ONCE ONE 10/30 2315 DC 10/31 Dextrose/Water 250 ML IV 10/31 0014 0230 Zolpidem Tartrate 10 MG AT BEDTIME NEED.. 10/31 0245 AC PO Last 24 Hrs of Lab/Lam Results Last 24 Hrs of Labs/Mics: Laboratory Tests 10/31/17 0215: Troponin I 0.02 10/31/17 0215: Lactic Acid 1.3 10/30/175: Urine Color YEL, Urine Clarity HAZY H, Urine pH 6.0, Ur Specific [place] >= 1.030, Urine Protein 30 H, Urine Ketones 15 H, Urine Nitrite NEG, Urine Bilirubin NEG@ICTO, Urine Urobilinogen 0.2, Ur Leukocyte Esterase MOD H, Ur Microscopic SEDIMENT EXAMINED, Urine RBC 25-50 H, Urine WBC 25-50 H, Ur Epithelial Cells FEW, Urine Crystals 1+ CA OX H, Urine Bacteria MOD H, Granular Casts RARE H, Urine Mucus MOD H, Urine Hemoglobin MOD H, Urine Glucose NEG 02/16/18 2145: Magnesium 1.8, Troponin I 0.02 10/30/172144: Anion Gap 12, Estimated GFR 53 L, BUN/Creatinine Ratio 15.4, Glucose 164 H, Lactic Acid 1.1, Calcium 8.2 L, Total Bilirubin 1.0, AST 32, ALT 41, Alkaline Phosphatase 153 H, Total Protein 5.4 L, Albumin 2.4 L, Globulin 3.0, Albumin/ Globulin Ratio 0.8 L, PT 27.7 H, INR 2.66 H, APTT 38 H, CBC w Diff NO MAN DIFF REQ, RBC 3.17 L, MCV 87.0, MCH 29.3, MCHC 33.7, RDW 16.4 H, MPV 9.3, Gran % 78.2 H, Lymphocytes % 9.6 L, Monocytes % 11.7 H, Eosinophils % 0.1, Basophils % 0.4, Absolute Granulocytes 2.3, Absolute Lymphocytes 0.3 L, Absolute Monocytes 0.3, Absolute Eosinophils 0, Absolute Basophils 0 10/30/172108: Virus Culture Pending Microbiology 10/31 244 URINE ROUT: Urine Culture - CAN Cancelled: Cancelled via OE: WILL D ADD ON 10/30 2214 BLOOD: Blood Culture - RES 10/30 2204 URINE ROUT: Urine Culture - RECD 10/30 2204 NASOPHARYN: Influenza Virus A & B Rapid Smear - COMP 10/30 2144 BLOOD: Blood Culture - RES Assessment/Plan Assessment: Mr. 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 HCAP 2. nonspecific ECG changes Plan: * Continue SMX/TMP and Azithromycin for prophylaxis * Continue Vancomycin, Ceftazidime, Apixaban, ASA, Metoprolol, statin * Start Oseltamivir while await Influenza A/B PCR * Droplet precautions * NPO for MBS evaluation * CT chest WO IV contrast for HCAP * ID recommendations appreciated * Follow up pancultures * Awaiting family to bring retrovirals Problem List: 1. Pneumonia Pain Ratin Pain Location: NA Pain Goal: Remain pain free Pain Plan: NA Tomorrow's Labs & Rationales: CBC to monitor white count BEP for renal function Donn BRAVO,Bar 10/31/17 1409: Attending MD Review Statement Attending Statement Attending MD Statement: examined this patient, discuss w/resident/PA/POLICY DIRECTOR, agreed w/resident/PA/POLICY DIRECTOR, reviewed EMR data (avail), discussed with nursing, reviewed images, amended to note Attending Assessment/Plan: 82-year-old male with past medical history significant for hypertension, hyperlipidemia, diabetes mellitus, GERD, BPH, depression, 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 fib on Eliquis has been admitted to the floor for a fever and consolidation on chest x- ray and currently being treated for healthcare associated pneumonia. Patient was seen and examined on the bedside, overnight temp of 101.6, but denies any complaints other than recent episode of choking on drinking water. Patient was recently admitted for UTI and was discharged to rehabilitation where she was found to have fever of 103 and was brought back to the ER immediately. Appreciated ID consult and will follow their recommendations by submitting the nasal swab for influenza A and B and starting her on Tamiflu with Doppler precautions, checking pro calcitonin and starting and ceftaz given elevated pro calcitonin or spiking fever for possible bacterial pneumonia/UTI. We will also get a cardiology consult given cases inversion on his lateral leads , though his troponins are negative and patient is asymptomatic. Will continue the rest of his home medications and will closely follow the patient.
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
[2017-10-31 13:50] VITALS: BP 132/60
--- NOTE | 2017-10-31 15:36 | CT SCAN REPORT ---
EXAMINATION: CT CHEST WITHOUT CONTRAST CLINICAL INFORMATION: Pneumonia COMPARISON: 10/30/2017 chest x-ray and 10/19/[address] scan. TECHNIQUE: Multidetector volumetric CT imaging of the chest was done. Axial MIP volume rendering provided. Sagittal and coronal reformatted images were obtained. DLP: 191.28 mGy-cm FINDINGS: LUNGS: There has been interval resolution of small right-sided and trace left-sided pleural effusion since 10/19/2017 CT scan. Improvement in aeration of the right lower lobe also noted, although there are still some areas of atelectatic changes in the right lower lobe and right lung base. The opacity in the left upper lobe seen on the comparison CT scan is no longer seen. Mild atelectatic changes at the left lung base also noted, not significantly changed. No new pulmonary consolidation is seen. No pleural effusion is present at this time. No pneumothorax. MEDIASTINUM: Mild cardiomegaly. No pericardial effusion. Atherosclerotic calcifications of the coronary arteries noted. Dilatation of the ascending thoracic aorta is unchanged. The pulmonary arteries are normal in diameter. The trachea and mary are patent. Subcentimeter right paratracheal and subcarinal lymph nodes are unchanged. No axillary adenopathy. UPPER ABDOMEN: Limited noncontrast images of the upper abdomen are unremarkable. OSSEOUS STRUCTURES: No aggressive bony lesion or acute bone fracture. IMPRESSION: Interval resolution of bilateral pleural effusions. Some atelectatic changes are still present in the right lung base. Interval improvement of the left upper lobe airspace disease. Cardiomegaly and dilated ascending thoracic aorta and coronary artery disease, unchanged.
[2017-11-01 07:00] VITALS: BP 148/62
[2017-11-01 07:40] LABS: ABSOLUTE BASOPHIL COUNT 0 /CUMM (0.0-0.2); ABSOLUTE EOSINOPHIL COUNT 0 /CUMM (0.0-0.7); ABSOLUTE LYMPH COUNT 0.4 /CUMM (1.2-3.4); ABSOLUTE MONOCYTE COUNT 0.3 /CUMM (0.10-0.60); BASOPHIL % 0 % (0.0-2.0); EOSINOPHIL % 0.4 % (0-5); GRANULOCYTE % 73.3 % (42.2-75.2); HEMATOCRIT 25.7 % (42-52); MEAN CORPUSCULAR HGB 29.2 PG (27.0-31.0); MEAN CORPUSCULAR HGB CONC 33.3 G/DL (33.0-37.0); MEAN CORPUSCULAR VOLUME 87.5 FL (80.0-94.0); MEAN PLATELET VOLUME 9.7 FL (7.4-10.4); PLATELET COUNT 161 /CUMM (130-400); RBC DISTRIBUTION WIDTH 17.1 % (11.5-14.5); RED BLOOD CELL CT 2.94 /CUMM (4.70-6.10); WHITE BLOOD CELL COUNT 2.7 /CUMM (4.8-10.8)
--- NOTE | 2017-11-01 08:51 | PN- Housestaff ---
Natalie BRAVO,Kelsey 11/01/17 0851: Subjective Follow-up For: HCAP Nonspecific EKG changes Tele-Events Since Last Visit: Sinus rhythm with sinus bradycardia Heart rate 56-97 T-wave inversions Subjective: Patient is alert but not oriented(to time place and person). Review of Systems Constitutional: Reports: no symptoms (unable to assess). Objective Last 24 Hrs of Vital Signs/I&O Vital Signs Date Time Temp Pulse Resp B/P B/P Pulse O2 O2 Flow FiO2 Mean Ox Delivery Rate 11/01 1600 Room Air 11/01 1350 98.2 70 20 110/62 95 Room Air 11/01 1034 100.0 11/01 0920 102.9 11/01 0907 102.9 11/01 0800 Room Air 11/01 0700 100.3 106 18 148/62 96 10/31 2300 99.3 71 20 95 10/31 2133 84 74/40 10/31 1956 99.5 10/31 1857 102.8 Intake & Output 11/01 1600 11/01 0800 11/01 0000 Intake Total 350 1650 1595 Output Total 250 500 200 Balance 100 1150 1395 Intake, IV 150 1600 1475 Intake, Oral 200 50 120 Number 2 Bowel Movements Output, Urine 250 500 200 Patient 155 lb Weight Physical Exam General Appearance: Alert, Cooperative, No Acute Distress Skin: No Rashes, No Breakdown, ecchymosis Cardiovascular: Regular Rate, Normal S1, Normal S2 Lungs: Normal Air Movement Abdomen: Normal Bowel Sounds, Soft, No Tenderness Extremities: No Clubbing, No Cyanosis, No Edema Current Medications: Current Medications Sig/Juma Start time Last Medication Dose Route Stop Time Status Admin Acetaminophen 650 MG .STK-MED ONE 11/01 0903 DC PO 11/01 0904 Acetaminophen 650 MG Q6P PRN 10/31 0030 AC 11/01 PO 0907 Ammonium Lactate 1 DILLAN DAILY 10/31 1000 AC 11/01 TOP 0909 Apixaban 2.5 MG BID 10/31 1000 AC 11/01 PO 0910 Aspirin Buffered 81 MG DAILY 10/31 1000 AC 11/01 PO 0910 Azithromycin 1,250 MG QSUN 11/01 0700 AC 11/01 PO 0632 Ceftazidime 1,000 MG Q8H 10/31 1030 AC 11/01 IV 1729 Cyanocobalamin 1,000 MCG DAILY 10/31 1000 AC 10/31 PO 1226 Diclofenac Sodium 1 DILLAN BID PRN 10/31 0300 AC TOP Insulin Aspart 0 TIDAC 10/31 0800 AC 11/01 SC 0906 Metoprolol Tartrate 50 MG BID 10/31 1000 AC 10/31 PO 1226 Oseltamivir Phosphate 75 MG BID 10/31 1427 AC 11/01 PO 11/04 1426 0907 Pantoprazole Sodium 40 MG DAILY 10/31 1000 AC 11/01 IV 0910 Pentoxifylline 400 MG DAILY 10/31 1000 AC 10/31 PO 1226 Pravastatin Sodium 10 MG 1700 10/31 1700 AC 11/01 PO 1729 Sodium Chloride 1,000 ML BOLUS ONE 10/31 2315 DC 10/31 IV 11/01 0114 2308 Sodium Chloride 1,000 ML Q10H 10/31 2315 DC 11/01 IV 11/02 1514 0038 Sodium Chloride 1,000 ML BOLUS ONE 10/31 2130 DC 10/31 IV 10/31 2229 2130 Sodium Chloride 1,000 ML Q13H 10/31 0030 DC 10/31 IV 11/01 0229 1632 Tamsulosin HCl 0.4 MG DAILY 10/31 1000 DC 10/31 PO 1226 Trimethoprim/ 1 TAB THURSDAY WED THURSDAY 11/02 1000 AC Sulfamethoxazole PO Vancomycin HCl 1,000 MG Q24H 11/01 0230 DC 11/01 Dextrose/Water 250 ML IV 0252 Zolpidem Tartrate 10 MG AT BEDTIME NEED.. 10/31 0245 AC PO Last 24 Hrs of Lab/Alm Results Last 24 Hrs of Labs/Mics: Laboratory Tests 11/01/17 0630: Anion Gap 8, Estimated GFR > 60, BUN/Creatinine Ratio 19.0, CBC w Diff NO MAN DIFF REQ, RBC 2.94 L, MCV 87.5, MCH 29.2, MCHC 33.3, RDW 17.1 H, MPV 9.7, Gran % 73.3, Lymphocytes % 15.4 L, Monocytes % 10.9 H, Eosinophils % 0.4, Basophils % 0, Absolute Granulocytes 2.0, Absolute Lymphocytes 0.4 L, Absolute Monocytes 0.3, Absolute Eosinophils 0, Absolute Basophils 0 Assessment/Plan Assessment: Assessment: Mr. 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 HCAP 2. nonspecific ECG changes Plan: * Continue Ceftazidime, vancomycin discontinued per ID recommendations * Follow-up nasal MRSA swab. * Continue Oseltamivir while await Influenza A/B PCR * Droplet precautions * NPO for MBS evaluation tomorrow * ID recommendations appreciated * Follow up pancultures * Follow-up pro-calcitonin level. * Patient does not report any further episodes of diarrhea, C. difficile done on Thursday before discharge was negative. Can do a CT abdomen and pelvis with contrast to rule out colitis and add Flagyl if diarrhea continues/worsens. * Continue SMX/TMP and Azithromycin for prophylaxis and antiretrovirals, Continue Apixaban, ASA, Metoprolol, statin. Patient refusing all his medications. * Leukopenia with absolute neutrophil count of 1900, haem/Onc evaluation recommended by ID, will discuss with the daughter if she would like to pursue with a evaluation. DVT prophylaxis; apixaban Patient is DNR/DNI Problem List: 1. HIV positive 2. Adenopathy 3. Fever of unknown origin Pain Ratin Pain Location: None Pain Goal: Remain pain free Pain Plan: None Tomorrow's Labs & Rationales: CBC(pneumonia) Donn BRAVO,[facility] 11/01/17 1152: Attending MD Review Statement Attending Statement Attending MD Statement: examined this patient, discuss w/resident/PA/BAND MANAGER, agreed w/resident/PA/BAND MANAGER, discussed with family, discussed with nursing, reviewed images , amended to note Attending Assessment/Plan: 82-year-old male with past medical history significant for hypertension, hyperlipidemia, diabetes mellitus, GERD, BPH, depression, 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 fib on Eliquis has been admitted to the floor for a fever and consolidation on chest x- ray and currently being treated for healthcare associated pneumonia. Patient was recently admitted for UTI and was discharged to rehabilitation where she was found to have fever of 103 and was brought back to the ER immediately. Patient was seen and examined on the bedside, patient continues to have spikes of fever with worsening neutropenia. Appreciated ID consult and will follow their recommendations by submitting the nasal swab for influenza A and B and starting her on Tamiflu with Doppler precautions, checking pro calcitonin and starting and ceftaz given elevated pro calcitonin. CT scan negative for any consolidation. Given his worsening neutropenia , absolute neutrophil count is trending down and currently at 1900, will continue on empiric IV antibiotics, will consider oncology evaluation and follow the recommendations from the ID. We will also get a cardiology consult given cases inversion on his lateral leads , though his troponins are negative and patient is asymptomatic. Will continue the rest of his home medications and will closely follow the patient.
--- NOTE | 2017-11-01 11:14 | PN- Infect Dx ---
Subjective Subjective: Continues to spike high fever. Denies cough or sinus congestion. Fatigued. Watery light greenish stool. No abd pain. Eduardo patient; urine less concentrated. Review of Systems Comments: 12 points reviewed; patient poor historian. Objective Last 24 Hrs of Vital Signs/I&O Vital Signs Date Time Temp Pulse Resp B/P B/P Pulse O2 O2 Flow FiO2 Mean Ox Delivery Rate 11/01 1034 100.0 11/01 0907 102.9 11/01 0800 Room Air 11/01 0700 100.3 106 18 148/62 96 10/31 2300 99.3 71 20 95 10/31 2133 84 74/40 10/31 1956 99.5 10/31 1857 102.8 10/31 1731 102.8 10/31 1350 99.3 78 20 132/60 95 Room Air 10/31 1308 99.1 Intake & Output 11/01 1600 11/01 0800 11/01 0000 Intake Total 1650 1595 Output Total 500 200 Balance 1150 1395 Intake, IV 1600 1475 Intake, Oral 50 120 Number 2 Bowel Movements Output, Urine 500 200 Patient 155 lb Weight Physical Exam Other Physical Findings: General Appearance No Acute Distress HEENT AT/NDC Neck No JVD Cardiovascular Regular Rate, Normal S1, Normal S2 Lungs Clear to Auscultation, Normal Air Movement, anterior exam as pt sleeping and semi-noncooperative Abdomen Normal Bowel Sounds, Soft, No Tenderness EXTR; no c/c/e Vascular 2+ radial pulses Results Last 24 Hours of Lab Results: Laboratory Tests 11/01 0630 Chemistry Sodium (137 - 145 mmol/L) 140 Potassium (3.5 - 5.1 mmol/L) 3.6 Chloride (98 - 107 mmol/L) 107 Carbon Dioxide (22 - 30 mmol/L) 25 Anion Gap (5 - 16) 8 BUN (9 - 20 mg/dL) 19 Creatinine (0.7 - 1.2 mg/dL) 1.0 Estimated GFR (>60 ml/min) > 60 BUN/Creatinine Ratio (7 - 25 %) 19.0 Hematology CBC w Diff NO MAN DIFF REQ WBC (4.8 - 10.8 /CUMM) 2.7 L RBC (4.70 - 6.10 /CUMM) 2.94 L Hgb (14.0 - 18.0 G/DL) 8.6 L Hct (42 - 52 %) 25.7 L MCV (80.0 - 94.0 FL) 87.5 MCH (27.0 - 31.0 PG) 29.2 MCHC (33.0 - 37.0 G/DL) 33.3 RDW (11.5 - 14.5 %) 17.1 H Plt Count (130 - 400 /CUMM) 161 MPV (7.4 - 10.4 FL) 9.7 Gran % (42.2 - 75.2 %) 73.3 Lymphocytes % (20.5 - 51.1 %) 15.4 L Monocytes % (1.7 - 9.3 %) 10.9 H Eosinophils % (0 - 5 %) 0.4 Basophils % (0.0 - 2.0 %) 0 Absolute Granulocytes (1.4 - 6.5 /CUMM) 2.0 Absolute Lymphocytes (1.2 - 3.4 /CUMM) 0.4 L Absolute Monocytes (0.10 - 0.60 /CUMM) 0.3 Absolute Eosinophils (0.0 - 0.7 /CUMM) 0 Absolute Basophils (0.0 - 0.2 /CUMM) 0 Last 24 Hours of Lam Results: SPEC #: [id number] KEENAN: 10/30/17 STATUS: RES RECD: 10/30/[address]: Radha Méndez MD SOURCE: BLOOD ENTR: 10/30/[address] [facility] DR: Jeff Emery MD SPDESC: 2ND/VENOUS ORDERED: BLOOD CULTURE Procedure Result > BLOOD CULTURE REPORT Preliminary 10/31/17 No growth after 1 day incubation. Specimen is examined continuously for 5 days before final report unless culture becomes positive. Recent Imaging Studies: EXAM TYPE: CAT - CT CHEST WO IV CONTRAST EXAMINATION: CT CHEST WITHOUT CONTRAST CLINICAL INFORMATION: Pneumonia COMPARISON: 10/30/2017 chest x-ray and 10/19/[address] scan. TECHNIQUE: Multidetector volumetric CT imaging of the chest was done. Axial MIP volume rendering provided. Sagittal and coronal reformatted images were obtained. DLP: 191.28 mGy-cm FINDINGS: LUNGS: There has been interval resolution of small right-sided and trace left-sided pleural effusion since 10/19/2017 CT scan. Improvement in aeration of the right lower lobe also noted, although there are still some areas of atelectatic changes in the right lower lobe and right lung base. The opacity in the left upper lobe seen on the comparison CT scan is no longer seen. Mild atelectatic changes at the left lung base also noted, not significantly changed. No new pulmonary consolidation is seen. No pleural effusion is present at this time. No pneumothorax. MEDIASTINUM: Mild cardiomegaly. No pericardial effusion. Atherosclerotic calcifications of the coronary arteries noted. Dilatation of the ascending thoracic aorta is unchanged. The pulmonary arteries are normal in diameter. The trachea and mary are patent. Subcentimeter right paratracheal and subcarinal lymph nodes are unchanged. No axillary adenopathy. UPPER ABDOMEN: Limited noncontrast images of the upper abdomen are unremarkable. OSSEOUS STRUCTURES: No aggressive bony lesion or acute bone fracture. IMPRESSION: Interval resolution of bilateral pleural effusions. Some atelectatic changes are still present in the right lung base. Interval improvement of the left upper lobe airspace disease. Cardiomegaly and dilated ascending thoracic aorta and coronary artery disease, unchanged. DICTATED BY: Saloni Colon MD DATE/TIME DICTATED:10/31/171429 TREE DEADENER:RAJAN DATE/TIME TRANSCRIBED:10/31/171429 CONFIDENTIAL, DO NOT COPY WITHOUT APPROPRIATE AUTHORIZATION. 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 Of note he has worsening leukopenia; ANC 1900 Fever (febrile neutopenia if ANC drops below 1500) Suggestion: Suggestion: 1. F/U nasal swab for RT PCR for influenza A/B (the screening test has low sensitivity especially during influenza outbreaks); empiric Tamiflu 75 mg po bid pnd results. Droplet precautions for now. 2. Started empiric iv antibiotics (Vancomycin/Ceftaz); BC from admission negative (on oral abx prior to admission). 3. Consider oncology eval; flow cytometry. 4. CBC, BMP, ESR/CRP/procalcitoninleval in am. 5. Obtain nasal MRSA surv cx; d/c iv vancomycin. 6. CT abd/pelvis w/ iv contrast f/u retroperitoneal lymphadenopathy; eval colitis. 5. Stool for C. difficile assay; add Flagyl 500 mg iv q 8 h if worsening diarrhea.
[2017-11-01 13:50] VITALS: BP 110/62
[2017-11-01 19:48] VITALS: BP 118/64
--- NOTE | 2017-11-01 19:51 | Event Note ---
Event Note Event Note: SITUATION tachycardic to 140-150 few minutes and drifted back to 120 - remained tachy Brief Patient is a 82 YO M with PMH significant for fever of unknown origin, CAD s/p CABG and recent stent placement. He hasnt been taking his home medications including metoprolol 50mg BID. He became tachycardic in the evening. He is lethargic and somnolent. Compeletely asymptomatic. VS Temp 102, BP 118/62mmHg, HR 120. Physical exam Alert and not oriented Heart : s1, S2 normal - regular Assessment Sinus tachycardia in the setting of noncompliance with medications in a known cardiac history patient. Plan One dose of lopressor 5mg inj monitor blood pressure 15min, 1hr and 2hrs after the episode Permit Agent is aware and agrees with the plan.
[2017-11-01 21:52] VITALS: BP 100/46
[2017-11-02] VITALS: BP 82/52
[2017-11-02 01:27] VITALS: BP 104/58
[2017-11-02 06:00] VITALS: BP 128/64
--- NOTE | 2017-11-02 07:02 | PN- Housestaff ---
Natalie BRAVO,[facility] 11/02/17 0702: Subjective Follow-up For: Influenza Fever of 103 Tele-Events Since Last Visit: Normal sinus rhythm Heart rate 61-77 Subjective: Patient resting comfortably, more alert and oriented compared to yesterday. Reports low appetite but was able to eat some orange for breakfast. Review of Systems Constitutional: Reports: no symptoms. EENTM: Reports: no symptoms. Cardiovascular: Reports: no symptoms. Respiratory: Reports: no symptoms. Gastrointestinal: Reports: no symptoms. Genitourinary: Reports: no symptoms. Musculoskeletal: Reports: no symptoms. Skin: Reports: no symptoms. Neurological/Psychological: Reports: no symptoms. Hematologic/Endocrine: Reports: no symptoms. Immunologic/Allergic: Reports: no symptoms. Objective Last 24 Hrs of Vital Signs/I&O Vital Signs Date Time Temp Pulse Resp B/P B/P Pulse O2 O2 Flow FiO2 Mean Ox Delivery Rate 11/02 1400 98.0 68 20 92/50 94 Room Air 11/02 1150 98.0 11/02 1051 100.7 11/02 0600 98.9 76 32 128/64 96 Room Air 11/02 0127 80 104/58 11/02 0000 Room Air 11/02 0000 82/52 11/01 2156 99.0 11/01 2152 98.3 64 20 100/46 97 Room Air 11/01 2109 56 100/46 11/01 2057 102.9 11/01 1955 118 118/64 11/01 1948 102.4 117 20 118/64 95 Room Air Intake & Output 11/02 1600 11/02 0800 11/02 0000 Intake Total 770 2445 120 Output Total 350 1050 250 Balance 420 1395 -130 Intake, IV 450 2225 Intake, Oral 320 220 120 Number 1 Bowel Movements Output, Urine 350 1050 250 Physical Exam General Appearance: Alert, Cooperative, oriented x 2( to time and place) Skin: No Rashes, No Breakdown Cardiovascular: Regular Rate, Normal S1, Normal S2 Lungs: Normal Air Movement Abdomen: Normal Bowel Sounds, Soft, No Tenderness Extremities: No Clubbing, No Cyanosis, No Edema Current Medications: Current Medications Sig/Juma Start time Last Medication Dose Route Stop Time Status Admin Acetaminophen 1,000 MG Q6H PRN 11/01 2045 AC 11/02 N/A 1 UNIT IV 1051 Acetaminophen 650 MG Q6P PRN 10/31 0030 AC 11/01 PO 0907 Ammonium Lactate 1 DILLAN DAILY 10/31 1000 AC 11/02 TOP 1412 Apixaban 2.5 MG BID 10/31 1000 AC 11/02 PO 1333 Aspirin Buffered 81 MG DAILY 10/31 1000 AC 11/02 PO 1333 Azithromycin 1,250 MG QSUN 11/01 0700 DC 11/01 PO 0632 Ceftazidime 1,000 MG Q8H 10/31 1030 DC 11/02 IV 1028 Cyanocobalamin 1,000 MCG DAILY 10/31 1000 AC 11/02 PO 1338 Diclofenac Sodium 1 DILLAN BID PRN 10/31 0300 AC TOP Insulin Aspart 0 TIDAC 10/31 0800 AC 11/02 SC 1028 Metoprolol Tartrate 5 MG ONCE ONE 11/01 1945 DC 11/01 IV 11/01 1946 1955 Metoprolol Tartrate 50 MG BID 10/31 1000 AC 11/02 PO 1333 Omeprazole 20 MG DAILY AC 11/03 0700 AC PO Oseltamivir Phosphate 75 MG BID 10/31 1427 AC 11/02 PO 11/04 1426 1333 Pantoprazole Sodium 40 MG DAILY 10/31 1000 DC 11/02 IV 1028 Pentoxifylline 400 MG DAILY 10/31 1000 AC 11/02 PO 1333 Pravastatin Sodium 10 MG 1700 10/31 1700 AC 11/01 PO 1729 Sodium Chloride 1,000 ML Q13H 11/02 0145 DC 11/02 IV 11/02 1444 0212 Sodium Chloride 1,000 ML BOLUS ONE 11/01 2345 DC 11/02 IV 11/02 0044 0005 Sodium Chloride 1,000 ML BOLUS ONE 11/01 2230 DC 11/01 IV 11/01 2329 2233 Trimethoprim/ 1 TAB THURSDAY WED THURSDAY 11/02 1000 DC Sulfamethoxazole PO Zolpidem Tartrate 10 MG AT BEDTIME NEED.. 10/31 0245 AC PO Last 24 Hrs of Lab/Lam Results Last 24 Hrs of Labs/Mics: Laboratory Tests 11/02/17 0637: Anion Gap 12, Estimated GFR > 60, BUN/Creatinine Ratio 15.5, C-Reactive Prot, Quant > 9.0 H, C-React Prot High Sens > 15.0 H, CBC w Diff NO MAN DIFF REQ, RBC 3.23 L, MCV 88.4, MCH 29.1, MCHC 32.9 L, RDW 17.2 H, MPV 9.8, Gran % 73.0 , Lymphocytes % 14.5 L, Monocytes % 12.0 H, Eosinophils % 0.4, Basophils % 0.1 , Absolute Granulocytes 2.0, Absolute Lymphocytes 0.4 L, Absolute Monocytes 0.3 , Absolute Eosinophils 0, Absolute Basophils 0, ESR Westergren 78 H Assessment/Plan Assessment: Assessment: Mr. 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 due to his fever Problem list: 1. Influenza 2. Fever of 103 Plan: * All antibiotics including the antibiotics for prophylaxis were discontinued per ID, does not think it's pneumonia given the negative chest CT. * Discontinue antiretrovirals. * Continue Oseltamivir while await Influenza A/B PCR * Follow-up nasal MRSA swab. * Droplet precautions * Patient was started on mechanical soft and regular thin diet after the modified barium swallow. * Follow up pancultures * Follow-up pro-calcitonin level. * Patient does not report any further episodes of diarrhea, C. difficile done on Thursday before discharge was negative. Can do a CT abdomen and pelvis with contrast to rule out colitis and add Flagyl if diarrhea continues/worsens. * Patient complains of neck pain but according to the daughter that's chronic. If patient remains febrile even after the complete workup will consider doing MRI of the cervical spine and will consider involving oncology. * Continue metoprolol for atrial fibrillation. DVT prophylaxis; apixaban Patient is DNR/DNI Problem List: 1. HIV positive 2. Adenopathy 3. Fever of unknown origin 4. 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 Just discharged by me after extended stay here. Reached [facility] and developed a fever of 103 in 2 hours and was sent back. Over the weekend started him emperically on IV ceftaz for gram-negative coverage, got a dose of Vanco for MRSA coverage with the thought being gram-negative and MRSA pneumonia with acute influenza. Flu swab was negative but PCR is pending. Pressure was also low with fevers up to 102.9 requiring IV fluids. Appreciate ID consult today and Dr. Martin's feeling is that this is not an MRSA or gram-negative pneumonia given the negative CT chest. We'll continue the course of the Tamiflu for the acute influenza. We'll stop all medications including Bactrim which could be implicated in the fevers. Will need to watch to see the fever curve off all medicines. The daughter says his neck pain is chronic and has been going on for years so I don't have a suspicion for epidural abscess at this point. If he remains febrile will need to consider an MRI of his neck. The other possibility for the fevers is lymphoma given his nonspecific lymphadenopathy and profound immunosuppression with AIDS. If he remains febrile with all workup being negative then we'll consider involving oncology.
[2017-11-02 08:35] LABS: ABSOLUTE BASOPHIL COUNT 0 /CUMM (0.0-0.2); ABSOLUTE EOSINOPHIL COUNT 0 /CUMM (0.0-0.7); ABSOLUTE LYMPH COUNT 0.4 /CUMM (1.2-3.4); ABSOLUTE MONOCYTE COUNT 0.3 /CUMM (0.10-0.60); BASOPHIL % 0.1 % (0.0-2.0); EOSINOPHIL % 0.4 % (0-5); HEMATOCRIT 28.5 % (42-52); MEAN CORPUSCULAR HGB 29.1 PG (27.0-31.0); MEAN CORPUSCULAR HGB CONC 32.9 G/DL (33.0-37.0); MEAN CORPUSCULAR VOLUME 88.4 FL (80.0-94.0); MEAN PLATELET VOLUME 9.8 FL (7.4-10.4); PLATELET COUNT 146 /CUMM (130-400); RBC DISTRIBUTION WIDTH 17.2 % (11.5-14.5); RED BLOOD CELL CT 3.23 /CUMM (4.70-6.10); WHITE BLOOD CELL COUNT 2.8 /CUMM (4.8-10.8)
--- NOTE | 2017-11-02 11:05 | PN- Infect Dx ---
Subjective Subjective: MAXIMUM TEMPERATURE 102.9. He complains of pain in the cervical spine and suprapubic tenderness. He is incontinent of soft stool. Objective Last 24 Hrs of Vital Signs/I&O Vital Signs Date Time Temp Pulse Resp B/P B/P Pulse O2 O2 Flow FiO2 Mean Ox Delivery Rate 11/02 0600 98.9 76 32 128/64 96 Room Air 11/02 0127 80 104/58 11/02 0000 Room Air 11/02 0000 82/52 11/01 2156 99.0 11/01 2151 98.3 64 20 100/46 97 Room Air 11/01 2109 56 100/46 11/01 2056 102.9 11/01 1955 118 118/64 11/01 1948 102.4 117 20 118/64 95 Room Air 11/01 1600 Room Air 11/01 1350 98.2 70 20 110/62 95 Room Air Intake & Output 11/02 1600 11/02 0800 11/02 0000 Intake Total 2445 120 Output Total 1050 250 Balance 1395 -130 Intake, IV 2225 Intake, Oral 220 120 Output, Urine 1050 250 Physical Exam Other Physical Findings: He is awake and alert in no acute distress but he appears to be having chills Neck is supple with no adenopathy Lungs are clear Heart regular rhythm with no murmur Abdomen is soft, nontender with positive bowel sounds Back no CVA tenderness Extremities no cyanosis, clubbing or edema Eduardo catheter is in place Results Last 24 Hours of Lab Results: Laboratory Tests 11/02 0637 Chemistry Sodium (137 - 145 mmol/L) 146 H Potassium (3.5 - 5.1 mmol/L) 3.5 Chloride (98 - 107 mmol/L) 111 H Carbon Dioxide (22 - 30 mmol/L) 23 Anion Gap (5 - 16) 12 BUN (9 - 20 mg/dL) 17 Creatinine (0.7 - 1.2 mg/dL) 1.1 Estimated GFR (>60 ml/min) > 60 BUN/Creatinine Ratio (7 - 25 %) 15.5 C-Reactive Prot, Quant (<1.0 mg/dL) > 9.0 H C-React Prot High Sens (1.0 - 3.0 mg/L) > 15.0 H Hematology CBC w Diff NO MAN DIFF REQ WBC (4.8 - 10.8 /CUMM) 2.8 L RBC (4.70 - 6.10 /CUMM) 3.23 L Hgb (14.0 - 18.0 G/DL) 9.4 L Hct (42 - 52 %) 28.5 L MCV (80.0 - 94.0 FL) 88.4 MCH (27.0 - 31.0 PG) 29.1 MCHC (33.0 - 37.0 G/DL) 32.9 L RDW (11.5 - 14.5 %) 17.2 H Plt Count (130 - 400 /CUMM) 146 MPV (7.4 - 10.4 FL) 9.8 Gran % (42.2 - 75.2 %) 73.0 Lymphocytes % (20.5 - 51.1 %) 14.5 L Monocytes % (1.7 - 9.3 %) 12.0 H Eosinophils % (0 - 5 %) 0.4 Basophils % (0.0 - 2.0 %) 0.1 Absolute Granulocytes (1.4 - 6.5 /CUMM) 2.0 Absolute Lymphocytes (1.2 - 3.4 /CUMM) 0.4 L Absolute Monocytes (0.10 - 0.60 /CUMM) 0.3 Absolute Eosinophils (0.0 - 0.7 /CUMM) 0 Absolute Basophils (0.0 - 0.2 /CUMM) 0 ESR Westergren (0 - 10 MM) 78 H Last 24 Hours of Lam Results: Blood cultures 2 October 30 negative Urine culture October 30 negative Assessment/Plan ID Impression: Recurrent fevers, developing within hours after discharge, prompting readmission , with repeat cultures and CT of the chest negative and, again, with no obvious focus of infection. He was begun empirically on Vancomycin and Ceftazidime but, with cultures negative, feel that these can be discontinued. He is on Tamiflu for possible Influenza, though his rapid flu is negative, and this can be continued. An extensive workup on his recent hospitalization for a source of his fevers was negative but, if his fevers recur, further evaluation will be necessary. The significance of his neck pain is unclear but imaging of this area could be considered. A noninfectious etiology must be considered, including drug fever and lymphoma, given the adenopathy seen on his recent CT scan, though IR did not feel that this was amenable to biopsy. Suggestion: 1. Repeat CT of the abdomen and pelvis if fevers persist 2. Consider MRI of the cervical spine 3. Discontinue Vancomycin and Ceftazidime 4. Discontinue Bactrim, Azithromycin and antiretroviral meds 5. Continue Tamiflu
[2017-11-02 14:00] VITALS: BP 92/50
--- NOTE | 2017-11-02 17:38 | Event Note ---
Event Note Event Note: S: Nurse paged stating patient had a run of vtach B: Patient is an 82 y/o male with PMH of HIV (CD4 count: 82), EKG ordered BEP: K+, Mg Trop Zofran for nausea/vomitting
--- NOTE | 2017-11-02 20:49 | RADIOLOGY REPORT ---
EXAMINATION: XR MODIFIED BARIUM SWALLOW CLINICAL INFORMATION: Failed modified barium swallow. COMPARISON: None. TECHNIQUE: A modified barium swallow was performed with speech pathologist in attendance. Pur?e, honey thick, nectar thick, thin, and bread consistencies were given to the patient and the swallowing mechanism was observed fluoroscopically with several spot films taken using the last image hold feature. FLUOROSCOPY TIME: 2.17 minutes. FINDINGS: With all consistencies, the oropharyngeal phase of swallowing is disordered with incoordination of the oral phase of swallowing and lingual pumping seen. Premature spillage of contrast into the valleculae is seen with thin liquids and with bread. Slight pooling of contrast is noted in the valleculae and piriform sinuses with thin liquid. Deep penetration of contrast when taken with a straw is seen, eliciting no cough reflex. With the remaining consistencies, no penetration is seen. IMPRESSION: 1. Silent penetration is noted with liquids taken with a straw. 2. Disordered oropharyngeal phase of swallowing is seen with all consistencies. 3. Premature spillage of contrast into the valleculae is seen with liquids and with bread consistency. 4. Pooling of contrast in the vallecula and piriform sinuses with thin liquids. 5. Speech pathologist assessment issued separately.
[2017-11-02 21:49] VITALS: BP 100/60
[2017-11-02 22:24] VITALS: BP 89/50
--- NOTE | 2017-11-02 23:06 | CT SCAN REPORT ---
EXAMINATION: CT ABDOMEN AND PELVIS WITH CONTRAST CLINICAL INFORMATION: Pain. Evaluate for pyelonephritis, diverticulitis, colitis. COMPARISON: 10/13/2017 TECHNIQUE: Multidetector volumetric imaging was performed of the abdomen and pelvis following IV administration of 95 mL of Optiray 320 intravenous contrast. Sagittal and coronal reformatted images were obtained on the technologist's workstation. DLP: 349 mGy-cm FINDINGS: LUNG BASES: Trace bilateral pleural effusions. Minimal bibasilar atelectasis. The heart is prominent. Coronary artery calcifications noted. LIVER, GALLBLADDER, AND BILIARY TREE: The liver is normal in size, shape, and attenuation. No focal hepatic lesion or biliary ductal dilatation is present. The gallbladder is unremarkable with no evidence of radiopaque gallstones, gallbladder wall thickening, or obvious pericholecystic inflammatory changes. PANCREAS: Unremarkable. SPLEEN: Unremarkable. ADRENAL GLANDS: Unremarkable. KIDNEYS AND URETERS: The kidneys are normal in size, shape, and attenuation. No hydronephrosis, hydroureter, or calculi seen. Mild symmetric perinephric stranding. BLADDER: Decompressed with a Eduardo catheter in place. GASTROINTESTINAL TRACT: The stomach is decompressed with no gross abnormality. The small bowel is normal in caliber. No obstruction. Normal appendix. Mild diverticulosis of the sigmoid colon. No diverticulitis. No colonic wall thickening or inflammatory change. No free air or free fluid. ABDOMINAL WALL: Fat-containing left inguinal hernia. LYMPH NODES: Normal. VASCULAR: Normal caliber aorta with moderate atherosclerotic calcifications. PELVIC VISCERA: The prostate is prominently enlarged measuring 6.4 cm transverse. The seminal vesicles are unremarkable. OSSEOUS STRUCTURES: No acute or suspicious osseous abnormality. Mild degenerative changes of the hips and spine. IMPRESSION: No acute findings in the abdomen or pelvis. No hydronephrosis. Normal enhancement of the renal parenchyma. No inflammatory changes of the colon. Significant prostatomegaly.
[2017-11-03 01:24] VITALS: BP 106/58
[2017-11-03 06:33] VITALS: BP 128/80
--- NOTE | 2017-11-03 07:19 | PN- Housestaff ---
Natalie BRAVO,[facility] 11/03/17717: Subjective Follow-up For: Influenza awaiting PCR Fever of unknown origin History of atrial fibrillation HIV positive Tele-Events Since Last Visit: Atrial flutter with bundle branch block Heart rate 39-73 Had an 18 beat run of V. tach last night Subjective: Patient is very somnolent and confused compared to yesterday. Verbally nonresponsive. Review of Systems Constitutional: Reports: no symptoms (unable to obtain history). Objective Last 24 Hrs of Vital Signs/I&O Vital Signs Date Time Temp Pulse Resp B/P B/P Pulse O2 O2 Flow FiO2 Mean Ox Delivery Rate 11/03 1048 104.2 114 11/03 1009 102.9 11/03 0800 96 Room Air 11/03 0633 97.9 86 16 128/80 97 Room Air 11/03 0124 106/58 11/02 2224 98.0 63 20 89/50 98 11/02 2149 100/60 11/02 2048 80 82/40 11/02 1943 99.0 11/02 1907 102.0 11/02 1600 Room Air 11/02 1400 98.0 68 20 92/50 94 Room Air 11/02 1150 98.0 Intake & Output 11/03 1600 11/03 0800 11/03 0000 Intake Total 560 820 Output Total 450 450 Balance 110 370 Intake, IV 500 700 Intake, Oral 60 120 Number 1 Bowel Movements Output, Urine 450 450 Physical Exam General Appearance: Cooperative, confused, verbally nonresponsive Skin: No Rashes, No Breakdown Cardiovascular: Normal S1, Normal S2 Lungs: Clear to Auscultation Abdomen: Normal Bowel Sounds, Soft, No Tenderness Extremities: No Clubbing, No Cyanosis, No Edema Current Medications: Current Medications Sig/Juma Start time Last Medication Dose Route Stop Time Status Admin Acetaminophen 1,000 MG Q6H PRN 11/01 2045 DC 11/03 N/A 1 UNIT IV 1009 Acetaminophen 650 MG Q6P PRN 10/31 0030 AC 11/01 PO 0907 Ammonium Lactate 1 DILLAN DAILY 10/31 1000 AC 11/03 TOP 0956 Apixaban 2.5 MG BID 10/31 1000 AC 11/02 PO 2047 Aspirin Buffered 81 MG DAILY 10/31 1000 AC 11/02 PO 1333 Azithromycin 1,250 MG QSUN 11/01 0700 DC 11/01 PO 0632 Ceftazidime 1,000 MG Q8H 10/31 1030 DC 11/02 IV 1028 Cyanocobalamin 1,000 MCG DAILY 10/31 1000 AC 11/02 PO 1338 Diclofenac Sodium 1 DILLAN BID PRN 10/31 0300 TOP Insulin Aspart 0 TIDAC 10/31 0800 AC 11/03 SC 0747 Magnesium Sulfate 1 GM Q2H 11/02 1930 DC 11/02 Dextrose/Water 100 ML IV 11/02 2329 2122 Metoprolol Tartrate 50 MG BID 10/31 1000 AC 11/02 PO 1333 Omeprazole 20 MG DAILY AC 11/03 0700 AC 11/03 PO 0516 Ondansetron HCl 4 MG ONCE ONE 11/02 1830 DC 11/02 IV 11/02 183 1831 Oseltamivir Phosphate 75 MG BID 10/31 1427 AC 11/02 PO 11/04 1426 2047 Pentoxifylline 400 MG DAILY 10/31 1000 AC 11/02 PO 1333 Phosphate 250 MG ONCE ONE 11/03 1115 DC PO 11/03 1116 Potassium Chloride 60 MEQ ONCE ONE 11/02 1930 DC 11/02 PO 11/02 1931 1941 Pravastatin Sodium 10 MG 1700 10/31 1700 AC 11/02 PO 1647 Sodium Chloride 1,000 ML Q13H 11/03 0915 AC 11/03 IV 11/03 2214 0958 Sodium Chloride 500 ML BOLUS ONE 11/02 2100 DC 11/02 IV 11/02 2159 2058 Sodium Chloride 1,000 ML Q13H 11/02 0145 DC 11/02 IV 11/02 1444 0212 Trimethoprim/ 1 TAB THURSDAY WED THURSDAY 11/02 1000 DC Sulfamethoxazole PO Zolpidem Tartrate 10 MG AT BEDTIME NEED.. 10/31 0245 PO Last 24 Hrs of Lab/Lam Results Last 24 Hrs of Labs/Mics: Laboratory Tests 11/03/17 0645: Anion Gap 14, Estimated GFR > 60, BUN/Creatinine Ratio 17.8, Lactate Dehydrogenase 530, CBC w Diff NO MAN DIFF REQ, RBC 3.50 L, MCV 88.2, MCH 29.1, MCHC 33.0, RDW 17.8 H, MPV 10.3, Gran % 80.2 H, Lymphocytes % 10.8 L, Monocytes % 8.6, Eosinophils % 0.4, Basophils % 0, Absolute Granulocytes 2.7, Absolute Lymphocytes 0.4 L, Absolute Monocytes 0.3, Absolute Eosinophils 0, Absolute Basophils 0 11/03/17 0010: Lactic Acid 1.1 11/03/17 0010: Anion Gap 10, Estimated GFR > 60, BUN/Creatinine Ratio 16.0, Phosphorus 2.2 L, Magnesium 2.0, Troponin I < 0.01 11/02/17 2120: Lactic Acid 1.2 11/02/17 1750: Anion Gap 9, Estimated GFR > 60, BUN/Creatinine Ratio 18.8, Magnesium 1.4 L, Troponin I < 0.01 Microbiology 11/02 2019 BLOOD: Blood Culture - RECD 11/02 2014 BLOOD: Blood Culture - RECD 11/02 1999 URINE ROUT: Urine Culture - RES Assessment/Plan Assessment: Mr. 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 Influenza (awaiting PCR) 2. MAXIMUM TEMPERATURE 104 Plan: * All antibiotics including the antibiotics for prophylaxis were discontinued per ID, does not think it's pneumonia given the negative chest CT and also Bactrim the associated with drug fever. * Discontinue antiretrovirals. * Continue Oseltamivir while await Influenza A/B PCR. * Droplet precautions * Follow up pancultures * Follow-up pro-calcitonin level. * CT abdomen and pelvis was done last night due to continuous high fevers, but did not show any acute abdominal pathology but enlarged prostate. We will order MRI of the cervical spine to rule out as the patient had MAXIMUM TEMPERATURE of 104.0 today and complains of neck pain(which according to the daughter is chronic). * Continue metoprolol for atrial fibrillation. * Patient had a 18 beat run of V. tach last night, mag and potassium within normal limits with low phosphorus of 2.2. Will replete and continue telemetry monitoring. DVT prophylaxis; apixaban Patient is DNR/DNI Diet; mechanical soft and regular thin Problem List: 1. Fever 2. Influenza 3. Atrial fibrillation 4. HIV positive 5. Adenopathy Pain Ratin Pain Location: None Pain Goal: Remain pain free Pain Plan: Pain pathway Tomorrow's Labs & Rationales: CBC,BEP(fever of unknown origin) [place] BRAVO,Soledad 11/03/17 1353: Attending MD Review Statement Attending Statement Attending MD Statement: examined this patient, discuss w/resident/PA/SHEET HANGER, agreed w/resident/PA/SHEET HANGER, discussed with family, reviewed EMR data (avail), discussed with nursing, discussed with case mgmt Attending Assessment/Plan: Patient looks very poorly today. His fever curve is as high as 104 and he is very lethargic. I spoken to Dr. Martin and the patient's daughter at length. The source of the fever is really unclear at this point. When he was readmitted here, a CT chest without contrast was done which didn't show pneumonia. He is empirically being treated with Tamiflu pending the PCR. The CT abdomen and pelvis with contrast was unrevealing. He's had an extensive workup for fevers in the past that have all been negative. The daughter says the neck pain is chronic but given that he can't give us the history and the fever so I will order an MRI of the spine. If that's negative as well then the differential would be malignancy versus a drug fever. The daughter clearly understands that pursuing the diagnosis of lymphoma at this point would not be useful given that he has dementia and AIDS and wouldn't a candidate for any kind of chemotherapeutic treatment.
[2017-11-03 07:52] LABS: ABSOLUTE BASOPHIL COUNT 0 /CUMM (0.0-0.2); ABSOLUTE EOSINOPHIL COUNT 0 /CUMM (0.0-0.7); ABSOLUTE GRANULOCYTE CT 2.7 /CUMM (1.4-6.5); ABSOLUTE LYMPH COUNT 0.4 /CUMM (1.2-3.4); ABSOLUTE MONOCYTE COUNT 0.3 /CUMM (0.10-0.60); BASOPHIL % 0 % (0.0-2.0); EOSINOPHIL % 0.4 % (0-5); GRANULOCYTE % 80.2 % (42.2-75.2); HEMATOCRIT 30.8 % (42-52); MEAN CORPUSCULAR HGB 29.1 PG (27.0-31.0); MEAN CORPUSCULAR VOLUME 88.2 FL (80.0-94.0); MEAN PLATELET VOLUME 10.3 FL (7.4-10.4); PLATELET COUNT 152 /CUMM (130-400); RBC DISTRIBUTION WIDTH 17.8 % (11.5-14.5); WHITE BLOOD CELL COUNT 3.3 /CUMM (4.8-10.8)
--- NOTE | 2017-11-03 11:00 | PN- Infect Dx ---
Subjective Subjective: MAXIMUM TEMPERATURE 102.9. He is not able to provide any history at this time. Objective Last 24 Hrs of Vital Signs/I&O Vital Signs Date Time Temp Pulse Resp B/P B/P Pulse O2 O2 Flow FiO2 Mean Ox Delivery Rate 11/03 1009 102.9 11/03 0633 97.9 86 16 128/80 97 Room Air 11/03 0124 106/58 11/02 2224 98.0 63 20 89/50 98 11/02 2149 100/60 11/02 2048 80 82/40 11/02 1943 99.0 11/02 1907 102.0 11/02 1600 Room Air 11/02 1400 98.0 68 20 92/50 94 Room Air 11/02 1150 98.0 11/02 1051 100.7 Intake & Output 11/03 1600 11/03 0800 11/03 0000 Intake Total 560 820 Output Total 450 450 Balance 110 370 Intake, IV 500 700 Intake, Oral 60 120 Number 1 Bowel Movements Output, Urine 450 450 Physical Exam Other Physical Findings: He appears confused and lethargic Skin flushed face HEENT negative Neck is supple with no adenopathy Lungs are clear Heart regular rhythm with no murmur Abdomen is soft, nontender with positive bowel sounds Extremities no cyanosis, clubbing or edema Eduardo catheter remains in place Results Last 24 Hours of Lab Results: Laboratory Tests 11/03 11/03 11/03 11/02 0645 0010 0010 2120 Chemistry Sodium (137 - 145 mmol/L) 144 142 Potassium (3.5 - 5.1 mmol/L) 4.1 4.0 Chloride (98 - 107 mmol/L) 109 H 112 H Carbon Dioxide (22 - 30 mmol/L) 22 20 L Anion Gap (5 - 16) 14 10 BUN (9 - 20 mg/dL) 16 16 Creatinine (0.7 - 1.2 mg/dL) 0.9 1.0 Estimated GFR (>60 ml/min) > 60 > 60 BUN/Creatinine Ratio (7 - 25 %) 17.8 16.0 Lactic Acid (0.7 - 2.1 mmol/L) 1.1 1.2 Phosphorus (2.5 - 4.5 mg/dL) 2.2 L Magnesium (1.6 - 2.3 mg/dL) 2.0 Lactate Dehydrogenase (313 - 618 U/L) 530 Troponin I (<0.11 ng/ml) < 0.01 Hematology CBC w Diff NO MAN DIFF REQ WBC (4.8 - 10.8 /CUMM) 3.3 L RBC (4.70 - 6.10 /CUMM) 3.50 L Hgb (14.0 - 18.0 G/DL) 10.2 L Hct (42 - 52 %) 30.8 L MCV (80.0 - 94.0 FL) 88.2 MCH (27.0 - 31.0 PG) 29.1 MCHC (33.0 - 37.0 G/DL) 33.0 RDW (11.5 - 14.5 %) 17.8 H Plt Count (130 - 400 /CUMM) 152 MPV (7.4 - 10.4 FL) 10.3 Gran % (42.2 - 75.2 %) 80.2 H Lymphocytes % (20.5 - 51.1 %) 10.8 L Monocytes % (1.7 - 9.3 %) 8.6 Eosinophils % (0 - 5 %) 0.4 Basophils % (0.0 - 2.0 %) 0 Absolute Granulocytes (1.4 - 6.5 /CUMM) 2.7 Absolute Lymphocytes (1.2 - 3.4 /CUMM) 0.4 L Absolute Monocytes (0.10 - 0.60 /CUMM) 0.3 Absolute Eosinophils (0.0 - 0.7 /CUMM) 0 Absolute Basophils (0.0 - 0.2 /CUMM) 0 11/02 1750 Chemistry Sodium (137 - 145 mmol/L) 143 Potassium (3.5 - 5.1 mmol/L) 3.3 L Chloride (98 - 107 mmol/L) 115 H Carbon Dioxide (22 - 30 mmol/L) 20 L Anion Gap (5 - 16) 9 BUN (9 - 20 mg/dL) 15 Creatinine (0.7 - 1.2 mg/dL) 0.8 Estimated GFR (>60 ml/min) > 60 BUN/Creatinine Ratio (7 - 25 %) 18.8 Magnesium (1.6 - 2.3 mg/dL) 1.4 L Troponin I (<0.11 ng/ml) < 0.01 Last 24 Hours of Lam Results: Blood cultures October 30 negative Blood cultures November 02 negative Urine culture November 02 negative Recent Imaging Studies: Modified barium swallow November 02 revealed silent penetration with liquids, disordered oropharyngeal phase of swallowing with all consistencies, premature spillage of contrast into the vallecula with liquids and bread consistency and pooling of contrast in the vallecula and piriform sinuses with thin liquids CT of the abdomen and pelvis with IV contrast November 02 reveals significant prostatomegaly Assessment/Plan ID Impression: Fevers persist without any obvious source of infection, with cultures negative and CT of the chest, abdomen and pelvis also negative for any acute process. He is now on Tamiflu alone, Day 3 of treatment for possible Influenza, with his rapid flu swab negative and with the PCR pending. His recent complaints of neck pain are of unclear significance and he is unable to provide any further history at this time, but further evaluation may be necessary if his symptoms persist. A noninfectious etiology of his fevers must be considered, including drug fever and lymphoma, given the report of adenopathy on his previous CT scans. Suggestion: 1. Consider MRI of the cervical spine 2. Remove Eduardo catheter if okay with Urology 3. Continue Tamiflu
[2017-11-03 14:05] VITALS: BP 90/42
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
[2017-11-03 21:00] VITALS: BP 158/80
--- NOTE | 2017-11-03 21:02 | Event Note ---
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 On examination Patient was lying comfortably in his bed with his eyes closed. He is confused, not oriented 3, not able to follow commands. He responded only to painful stimuli. Stat CAT scan of his head, troponin and EKG was ordered. Troponin and EKG-negative with no EKG changes. CT head-negative. After 2 hours patient appeared more alert but still confused and requesting for water. Patient blood pressure dropped to 98/48. Heart rate-90, saturation 98% at room air. Normal saline thousand ml bolus was given. We will continue monitoring him. Resident and engineering model maker made aware.
--- NOTE | 2017-11-03 23:16 | CT SCAN REPORT ---
EXAMINATION: CT HEAD WITHOUT CONTRAST CLINICAL INFORMATION: Altered mental status COMPARISON: CT head 10/17/2017 TECHNIQUE: Contiguous axial imaging was performed from the skull base to vertex without intravenous administration of contrast. DLP: 617.13 mGy-cm FINDINGS: There is no evidence of acute intracranial hemorrhage or territorial infarction. No abnormal mass effect or midline shift is seen. Gagnon to white matter differentiation is well preserved. No extra-axial fluid collections are identified. There is atrophy with prominence of the ventricles and the sulci and hypodensity of the periventricular white matter due to chronic small vessel ischemic disease. There is vascular calcifications of the internal carotid arteries bilaterally. The osseous structures and soft tissues are normal. The mastoid air cells and visualized portions of the paranasal sinuses are well aerated. IMPRESSION: No acute intracranial pathology.
[2017-11-04 06:34] VITALS: BP 126/72
--- NOTE | 2017-11-04 07:21 | PN- Housestaff ---
Natalie BRAVO,[facility] 11/04/17 0721: Subjective Follow-up For: Influenza awaiting PCR Fever of unknown origin History of atrial fibrillation HIV positive Tele-Events Since Last Visit: Normal sinus rhythm Heart rate 41 to 114. Subjective: Patient was initially very drowsy/somnolent, arousable with sternal rub and not following commands. Later he was able to open his eyes but remained verbally nonresponsive. Review of Systems Constitutional: Reports: no symptoms (unable to provide history). Objective Last 24 Hrs of Vital Signs/I&O Vital Signs Date Time Temp Pulse Resp B/P B/P Pulse O2 O2 Flow FiO2 Mean Ox Delivery Rate 11/04 1131 104.6 11/04 0634 99.6 99 20 126/72 96 Room Air 11/04 0000 Room Air Room Air 11/03 2240 158/80 11/03 2229 98.2 11/03 2201 98.2 11/03 2102 100.6 11/03 2100 100.6 114 22 158/80 97 Room Air 11/03 1405 96.7 78 20 90/42 92 Intake & Output 11/04 1600 11/04 0800 11/04 0000 Intake Total 1954 Output Total 350 350 Balance 1604 -350 Intake, IV 1904 Intake, Oral 50 Output, Urine 350 350 Physical Exam General Appearance: Cooperative, somnolent Skin: No Rashes, No Breakdown Cardiovascular: Regular Rate, Normal S1, Normal S2 Lungs: Normal Air Movement Abdomen: Normal Bowel Sounds, Soft, No Tenderness Extremities: No Clubbing, No Cyanosis, No Edema Current Medications: Current Medications Sig/Juma Start time Last Medication Dose Route Stop Time Status Admin Acetaminophen 1,000 MG Q6P PRN 11/03 204 AC 11/04 N/A 1 UNIT IV 1131 Acetaminophen 650 MG Q6P PRN 10/31 0030 AC 11/01 PO 0907 Ammonium Lactate 1 DILLAN DAILY 10/31 1000 AC 11/03 TOP 0956 Apixaban 2.5 MG BID 10/31 1000 AC 11/02 PO 2047 Aspirin Buffered 81 MG DAILY 10/31 1000 AC 11/02 PO 1333 Cyanocobalamin 1,000 MCG DAILY 10/31 1000 AC 11/02 PO 1338 Dextrose/Sodium 1,000 ML Q13H 11/04 0830 AC 11/04 Chloride IV 0827 Diclofenac Sodium 1 DILLAN BID PRN 10/31 0300 AC TOP Insulin Aspart 0 TIDAC 10/31 0800 AC 11/03 SC 0747 Metoprolol Tartrate 50 MG BID 10/31 1000 AC 11/02 PO 1333 Omeprazole 20 MG DAILY AC 11/03 0700 AC 11/03 PO 0516 Oseltamivir Phosphate 75 MG BID 10/31 1427 AC 11/02 PO 11/04 1426 2047 Pentoxifylline 400 MG DAILY 10/31 1000 AC 11/02 PO 1333 Potassium Phosphate 15 mMol ONE ONE 11/03 1145 DC 11/03 Sodium Chloride 250 ML IV 11/03 1549 1339 Pravastatin Sodium 10 MG 1700 10/31 1700 AC 11/02 PO 1647 Sodium Chloride 1,000 ML BOLUS ONE 11/03 2345 DC 11/04 IV 11/04 0044 0032 Sodium Chloride 1,000 ML Q13H 11/03 0915 DC 11/03 IV 11/03 2214 0958 Zolpidem Tartrate 10 MG AT BEDTIME NEED.. 10/31 0245 AC PO Last 24 Hrs of Lab/Lam Results Last 24 Hrs of Labs/Mics: Laboratory Tests 11/04/17619: Anion Gap 10, Estimated GFR > 60, BUN/Creatinine Ratio 16.7, Phosphorus 2.9, CBC w Diff NO MAN DIFF REQ, RBC 3.29 L, MCV 87.0, MCH 28.7, MCHC 33.0, RDW 18.5 H, MPV 10.4, Gran % 71.2, Lymphocytes % 18.0 L, Monocytes % 10.4 H, Eosinophils % 0.4, Basophils % 0, Absolute Granulocytes 2.0, Absolute Lymphocytes 0.5 L, Absolute Monocytes 0.3, Absolute Eosinophils 0, Absolute Basophils 0 11/03/172114: Troponin I Cancelled 11/03/172114: Anion Gap 9, Estimated GFR > 60, BUN/Creatinine Ratio 16.7, Troponin I 0.02 11/03/172114: Ammonia < 9 L Assessment/Plan Assessment: Mr. 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 Influenza (awaiting PCR) 2. MAXIMUM TEMPERATURE 104 3. HIV positive 4. CODE STATUS changed to comfort measures Patient continues to spike fever with confusion/altered mental status. Had an MRI of cervical spine to rule out abscess which remained negative. After discussion with the daughter patient was changed to comfort measures because given the patient's fever are likely from the lymphoma(all other possible differentials excluded) he is not a candidate for chemotherapy and will not be able to tolerate it. All the unnecessary medications were discontinued, and patient will be evaluated for inpatient hospice tomorrow. DVT prophylaxis; apixaban Patient is DNR/DNI Diet; mechanical soft and regular thin Problem List: 1. Fever of unknown origin 2. Diabetes 3. HIV positive 4. Adenopathy 5. Atrial fibrillation 6. Influenza Pain Ratin Pain Location: None Pain Goal: Remain pain free Pain Plan: Pain pathway Tomorrow's Labs & Rationales: None Soledad Lovelace MD 11/04/17 1118: Attending MD Review Statement Attending Statement Attending MD Statement: examined this patient, discuss w/resident/PA/CHARGE LPN, agreed w/resident/PA/CHARGE LPN, reviewed EMR data (avail), discussed with nursing, discussed with case mgmt, reviewed images Attending Assessment/Plan: Events overnight noted. Patient dropped his blood pressure yesterday requiring fluids. He remains lethargic with poor by mouth intake. He has an FUO of unclear etiology and the 3 possible diagnoses right now are AIDS-related lymphoma, an epidural abscess (low suspicion) and drug-induced fever. We stopped all the medications including the prophylactic agents and the antiretrovirals. He is going to complete his Tamiflu course for suspected influenza. We are getting an MRI with ashok to make sure there is no epidural abscess although the neck pain is chronic and the fever is relatively new. If we exclude everything and its presumed lymphoma the daughter will then consider changing CODE STATUS to comfort measures and hospice. As she understands that pursuing a lymphoma diagnosis with his dementia doesn't make sense. We will keep him on the monitor as he goes into episodes of rapid A. fib requiring IV metoprolol.
[2017-11-04 07:56] LABS: ABSOLUTE BASOPHIL COUNT 0 /CUMM (0.0-0.2); ABSOLUTE EOSINOPHIL COUNT 0 /CUMM (0.0-0.7); ABSOLUTE LYMPH COUNT 0.5 /CUMM (1.2-3.4); ABSOLUTE MONOCYTE COUNT 0.3 /CUMM (0.10-0.60); BASOPHIL % 0 % (0.0-2.0); EOSINOPHIL % 0.4 % (0-5); GRANULOCYTE % 71.2 % (42.2-75.2); HEMATOCRIT 28.6 % (42-52); MEAN CORPUSCULAR HGB 28.7 PG (27.0-31.0); MEAN PLATELET VOLUME 10.4 FL (7.4-10.4); RBC DISTRIBUTION WIDTH 18.5 % (11.5-14.5); RED BLOOD CELL CT 3.29 /CUMM (4.70-6.10); WHITE BLOOD CELL COUNT 2.8 /CUMM (4.8-10.8)
[2017-11-04 09:05] LABS: PLATELET COUNT 125 /CUMM (130-400)
--- NOTE | 2017-11-04 13:55 | MRI REPORT ---
EXAMINATION: MR CERVICAL SPINE WITHOUT CONTRAST CLINICAL INFORMATION: Fever and neck pain. Rule out abscess. COMPARISON: None. TECHNIQUE: MRI of the cervical spine without contrast was obtained using routine sequences. Significantly limited study. FINDINGS: The study is nearly nondiagnostic due to extensive motion artifacts. Only the sagittal T2-weighted sequence is without significant motion. No prevertebral soft tissue thickening or fluid collection is visible. The marrow signal is within normal limits. No obvious cord signal abnormality is seen. No compressive epidural fluid collection is seen. There are no imaging findings to suggest discitis-osteomyelitis. No facet joint effusions are seen. The craniovertebral junction and imaged portions of the brain parenchyma demonstrate no acute abnormality. There are mild multilevel disc bulges and facet arthropathy without significant central canal stenosis. Evaluation for foraminal narrowing is limited by motion. No large disc protrusions are seen. There are no compression fractures or subluxations. There is mild edema in the posterior paraspinal soft tissues on the left side at the C5-C6 level. IMPRESSION: Nearly nondiagnostic examination with extensive motion artifacts. No abnormal fluid collection is seen. No imaging findings to suggest discitis-osteomyelitis. No definite cord signal abnormality or syrinx. Mild cervical spondylosis with [id number] multilevel facet arthropathy. Nonspecific mild posterior paraspinal soft tissue edema at C5-C6 on the left side.
--- NOTE | 2017-11-04 14:31 | PN- Infect Dx ---
Subjective Subjective: MAXIMUM TEMPERATURE 104.6. He has been lethargic and unable to take any medications po. Objective Last 24 Hrs of Vital Signs/I&O Vital Signs Date Time Temp Pulse Resp B/P B/P Pulse O2 O2 Flow FiO2 Mean Ox Delivery Rate 11/04 1409 96.4 11/04 1131 104.6 11/04 0634 99.6 99 20 126/72 96 Room Air 11/04 0000 Room Air Room Air 11/03 2240 158/80 11/03 2229 98.2 11/03 2201 98.2 11/03 2102 100.6 11/03 2100 100.6 114 22 158/80 97 Room Air Intake & Output 11/04 1600 11/04 0800 11/04 0000 Intake Total 1954 Output Total 350 350 Balance 1604 -350 Intake, IV 1904 Intake, Oral 50 Output, Urine 350 350 Physical Exam Other Physical Findings: He is lethargic and minimally responsive Skin facial flushing Lungs are clear Heart regular rhythm with no murmur Abdomen is soft, with no obvious tenderness, positive bowel sounds Extremities diffuse ecchymoses over the extremities Eduardo catheter remains in place Results Last 24 Hours of Lab Results: Laboratory Tests 11/04 11/03 11/03 0620 2115 2115 Chemistry Sodium (137 - 145 mmol/L) 145 140 Potassium (3.5 - 5.1 mmol/L) 4.0 4.1 Chloride (98 - 107 mmol/L) 112 H 108 H Carbon Dioxide (22 - 30 mmol/L) 23 22 Anion Gap (5 - 16) 10 9 BUN (9 - 20 mg/dL) 15 15 Creatinine (0.7 - 1.2 mg/dL) 0.9 0.9 Estimated GFR (>60 ml/min) > 60 > 60 BUN/Creatinine Ratio (7 - 25 %) 16.7 16.7 Phosphorus (2.5 - 4.5 mg/dL) 2.9 Troponin I (<0.11 ng/ml) Cancelled 0.02 Hematology CBC w Diff NO MAN DIFF REQ WBC (4.8 - 10.8 /CUMM) 2.8 L RBC (4.70 - 6.10 /CUMM) 3.29 L Hgb (14.0 - 18.0 G/DL) 9.5 L Hct (42 - 52 %) 28.6 L MCV (80.0 - 94.0 FL) 87.0 MCH (27.0 - 31.0 PG) 28.7 MCHC (33.0 - 37.0 G/DL) 33.0 RDW (11.5 - 14.5 %) 18.5 H Plt Count (130 - 400 /CUMM) 125 L MPV (7.4 - 10.4 FL) 10.4 Gran % (42.2 - 75.2 %) 71.2 Lymphocytes % (20.5 - 51.1 %) 18.0 L Monocytes % (1.7 - 9.3 %) 10.4 H Eosinophils % (0 - 5 %) 0.4 Basophils % (0.0 - 2.0 %) 0 Absolute Granulocytes (1.4 - 6.5 /CUMM) 2.0 Absolute Lymphocytes (1.2 - 3.4 /CUMM) 0.5 L Absolute Monocytes (0.10 - 0.60 /CUMM) 0.3 Absolute Eosinophils (0.0 - 0.7 /CUMM) 0 Absolute Basophils (0.0 - 0.2 /CUMM) 0 11/03 2114 Chemistry Ammonia (9 - 30 umol/L) < 9 L Last 24 Hours of Lam Results: Blood cultures November 02 negative Urine culture November 02 negative Recent Imaging Studies: MRI of the cervical spine, a nearly nondiagnostic exam secondary to extensive motion artifact, reveals no abnormal fluid collections or findings to suggest discitis/osteomyelitis CT of the head November 03 no acute process Assessment/Plan ID Impression: Fevers persist without any obvious source of infection, with cultures negative, CT of the chest, abdomen and pelvis negative and the recent MRI of the cervical spine, though a limited study, also negative for any acute process. He remains on Tamiflu, Day 4 of treatment for possible Influenza, though he has not been taking his oral meds and, given his persistent fevers, feel that this is unlikely. A noninfectious etiology of his fevers must be considered, including lymphoma, with no plans to pursue any further evaluation for this. He is leukopenic and thrombocytopenic, possibly related to his HIV, or perhaps to an underlying bone marrow disorder, but, as noted above, further evaluation for this is not planned. Suggestion: 1. Further decisions with regard to his overall level of care per Medicine 2. Discontinue Tamiflu and follow off antibiotics
[2017-11-04 14:43] VITALS: BP 84/40
--- NOTE | 2017-11-04 16:14 | PN- Att Addend ---
Attending Addendum Attending Brief Note Pt seen and examined. Agree with pharmacist intern's note. I spoke to the patient's daughter and son-in-law for a long time. I explained patient's overall poor prognosis. Patient has AIDS with a CD4 count that's very low, multiple medical problems with multiple readmissions within the past few weeks itself. Now the ongoing issues high spiking fever with very poor mentation, lethargy and encephalopathy with decreasing counts. All cultures negative, CT negative, MRI with motion artifact done for the possibility of epidural abscess also negative. 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 At this point in view of his very poor prognosis, and ongoing dementia, the family has accepted that we are going to change him to comfort measures. Think he is imminently dying. I'm going to call the hospice nurse to evaluate him as I think he'll be a candidate for inpatient hospice. At this point we are going to stop all the medications on the coping machine assembler. We are going to keep him on Ativan and morphine when necessary for comfort. Scopolamine patch and Tylenol suppository for comfort and prognosis is very poor. Family is well aware. Emotional support provided.
[2017-11-04 17:36] VITALS: BP 118/64
[2017-11-04 18:15] VITALS: BP 138/70
[2017-11-04 21:41] VITALS: BP 130/80
[2017-11-05 07:18] VITALS: BP 130/52
--- NOTE | 2017-11-05 07:31 | PN- Housestaff ---
Susan Acosta MD,[facility] 11/05/17 0730: Subjective Follow-up For: Comfort measures Hospice evaluation Subjective: Patient visited today, was lying in bed comfortably in no acute distress, was sleeping. Daughter at the bedside, noted that drug transferred for evaluation for hospice placement. No complaints. We'll follow with case management and hospice nurse for continuation of care. Review of Systems Constitutional: Reports: see HPI. Objective Last 24 Hrs of Vital Signs/I&O Vital Signs Date Time Temp Pulse Resp B/P B/P Pulse O2 O2 Flow FiO2 Mean Ox Delivery Rate 11/05 0754 103.2 11/05 0718 103.4 99 18 130/52 96 Room Air 11/05 0653 103.4 11/04 2141 98.8 96 18 130/80 94 11/04 1815 99.3 93 20 138/70 11/04 1736 98.7 18 118/64 Intake & Output 11/05 1600 11/05 0800 11/05 0000 Intake Total 0 0 Output Total 1250 Balance -1250 0 Intake, Oral 0 0 Output, Urine 1250 Physical Exam General Appearance: No Acute Distress, sleeping HEENT: Atraumatic Current Medications: Current Medications Sig/Juma Start time Last Medication Dose Route Stop Time Status Admin Acetaminophen 650 MG .STK-MED ONE 11/05 0651 DC AK 11/05 0652 Acetaminophen 650 MG Q6P PRN 11/04 1615 DCD 11/05 [place] 0653 Bisacodyl 10 MG DAILY PRN 11/04 1615 DCD AK Glycopyrrolate 400 MCG Q4 HRS NEEDED PRN 11/04 1615 DCD IV Lorazepam 1 MG Q6-PRN PRN 11/04 1615 DCD IV Morphine Sulfate 2 MG Q6P PRN 11/04 1615 DCD IV Scopolamine HBr 1 PAT Q72H 11/04 1615 DCD 11/04 TOP 1805 Assessment/Plan Assessment: Currently comfrot measures, tynelol, ativan and other interventions in place. We will follow with hospice nurse. Problem List: 1. Comfort measures only status 2. Hospice care Pain Ratin Pain Location: None Pain Goal: Pain 4 or less Pain Plan: None Tomorrow's Labs & Rationales: None Angela Morrison 11/05/17 1522: Attending MD Review Statement Attending Statement Attending MD Statement: examined this patient, discuss w/resident/PA/BUSINESS OFFICE DIRECTOR, agreed w/resident/PA/BUSINESS OFFICE DIRECTOR, discussed with family, reviewed EMR data (avail), discussed with nursing, discussed with case mgmt, reviewed images, amended to note Attending Assessment/Plan: Patient sleeping comfortably in bed. Not in acute distress. Patient evaluated by hospice and made cofort care. Margaret from hospice is following.
== END 2017-11-05 13:21 | disposition hospice, home (50) | DRG 975 ==
LOC: ERH 20:38 → ERHI 23:25 → ENRESERV 10-31 00:38 → CANRESERV 10-31 00:38 → EDBEDREQTM 10-31 02:47 → EDBEDREQ 10-31 02:47 → ENRESERV 10-31 03:15 → 1NO 10-31 04:05 → ENTRNSPT 11-04 17:31 → EDTRNSPTSTS 11-04 18:07 → 2NA 11-04 18:21 → CMPTRNSPT 11-04 18:31 → 2NA 11-05 08:08
PROVIDERS: Emergency Medicine; Internal Medicine; Student in an Organized Health Care Education/Training Program
DX: C85.90 Non-Hodgkin lymphoma, unspecified, unspecified site (principal); B20 Human immunodeficiency virus [HIV] disease; E44.1 Mild protein-calorie malnutrition; G93.40 Encephalopathy, unspecified; L89.152 Pressure ulcer of sacral region, stage 2; N17.9 Acute kidney failure, unspecified; D69.6 Thrombocytopenia, unspecified; E11.51 Type 2 diabetes mellitus with diabetic peripheral angiopathy without gangrene; I48.0 Paroxysmal atrial fibrillation; D72.818 Other decreased white blood cell count; J11.1 Influenza due to unidentified influenza virus with other respiratory manifestations; R13.10 Dysphagia, unspecified; Z79.4 Long term (current) use of insulin; I10 Essential (primary) hypertension; Z79.01 Long term (current) use of anticoagulants; R59.1 Generalized enlarged lymph nodes; R41.82 Altered mental status, unspecified; Z68.24 Body mass index [BMI] 24.0-24.9, adult; I25.10 Atherosclerotic heart disease of native coronary artery without angina pectoris; Z95.5 Presence of coronary angioplasty implant and graft; Z79.02 Long term (current) use of antithrombotics/antiplatelets; I25.2 Old myocardial infarction; F32.9 Major depressive disorder, single episode, unspecified; K21.9 Gastro-esophageal reflux disease without esophagitis; N40.0 Benign prostatic hyperplasia without lower urinary tract symptoms; Z66 Do not resuscitate; Z51.5 Encounter for palliative care
CPT/HCPCS: 1NP; 2NAP; 72141; 36415; 36592; 71045; 74177; 74230; 81001; 82436; 87040; 87086; 87804; 87804-59; 93005; 93010; 96374; 96375; 97110-GO; 97162-GP; G8978-GP; G8979-GP; J0131; J0456; J0713; J1644; J2405; J3101; J3370; J7040; J7042; J7060

== ENCOUNTER 2017-11-05 13:21 | Inpatient (IN) | payer OTHER ==
[~2017-11-05] VITALS: Ht 170.2 cm; Wt 70.4 kg
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
[2017-11-05 16:27] VITALS: BP 118/60
[2017-11-06 07:05] VITALS: BP 116/60
--- NOTE | 2017-11-06 14:45 | PN- Hospice ---
Subjective Subjective: Daughter at bedside. Pt. is awake, comfortable. Able to drink some liquids today, no solids. Asking for grapefruit but will settle for orange. Receiving tylenol q4h for fever, but had been held overnight for normal temp. No morphine or ativan given. Review of Systems Constitutional: Reports: see HPI. Objective Last 24 Hrs of Vital Signs/I&O Vital Signs Date Time Temp Pulse Resp B/P B/P Pulse O2 O2 Flow FiO2 Mean Ox Delivery Rate 11/06 1348 101.4 11/06 1341 101.6 11/06 1045 101.2 11/06 1025 101.2 11/06 0848 102.6 11/06 0705 98.0 76 20 116/60 97 Room Air 11/06 0558 98.7 11/06 0200 97.6 11/05 2316 97.5 11/05 2217 97.7 11/05 1825 99.3 11/05 1630 99.3 11/05 1627 99.8 102 18 118/60 96 Intake & Output 11/06 1600 11/06 0800 11/06 0000 Intake Total 50 Output Total 250 350 Balance -250 -300 Intake, Oral 50 Number 1 Bowel Movements Output, Urine 250 350 Physical Exam General Appearance: no apparent distress, awake Head: normal appearance Ears, Nose, Throat: oral mucosa dry Respiratory: normal breath sounds, no respiratory distress Cardiovascular: regular rate/rhythm Abdomen: soft, non-tender Extremities: slight edema RUE, RLE Neurologic/Psychiatric: alert (and conversant) Other Physical Findings: prabhakar catheter with clear, yellow urine Current Medications: Current Medications Sig/Juma Start time Last Medication Dose Route Stop Time Status Admin Acetaminophen 650 MG Q4 11/05 1400 AC 11/06 UT 1341 Bisacodyl 10 MG DAILY NEEDED PRN 11/05 1400 AC UT Glycerin/Mineral Oil 1 DILLAN Q8P PRN 11/05 1400 AC TOP Glycopyrrolate 400 MCG Q4P PRN 11/05 1400 AC IV Lorazepam 1 MG Q4P PRN 11/05 1400 AC IV Morphine Sulfate 2 MG Q2P PRN 11/05 1400 AC IV Scopolamine HBr 1 PAT Q72H 11/05 1500 AC 11/05 TOP 1500 Assessment/Plan Hospice Assessment/Recommendations: [id number] with AIDS and fever of unknown etiology, encephalopathy admitted for hospice care. Comfortable. Give tylenol every 4 hrs around the clock, do not hold, discussed with nursing. Diet changed to regular consistency per daughter request so pt may have fruit-- daughter to assist.
[2017-11-07 06:59] VITALS: BP 94/56
--- NOTE | 2017-11-07 16:03 | PN- Hospice ---
Subjective Subjective: Complains of some lower back pain Review of Systems Constitutional: Denies: fever. Cardiovascular: Denies: chest pain. Respiratory: Denies: short of breath. Gastrointestinal: Denies: abdominal pain. Musculoskeletal: Reports: back pain. Skin: Denies: rash. Objective Last 24 Hrs of Vital Signs/I&O Vital Signs Date Time Temp Pulse Resp B/P B/P Pulse O2 O2 Flow FiO2 Mean Ox Delivery Rate 11/07 1450 97.1 11/07 0705 97.3 11/07 0659 97.4 80 20 94/56 91 Room Air 11/07 0603 97.4 11/07 0345 97.5 11/07 0247 97.6 11/07 0000 97.5 11/06 2134 96.4 11/06 1945 98.0 11/06 1843 98.3 11/06 1600 99.6 Intake & Output 11/07 1600 11/07 0800 11/07 0000 Intake Total 320 240 120 Output Total 100 125 500 Balance 220 115 -380 Intake, Oral 320 240 120 Output, Urine 100 125 500 Physical Exam: General Appearance: no apparent distress, awake and knows he is at [facility] Head: normal appearance Ears, Nose, Throat: oral mucosa dry Respiratory: normal breath sounds, no respiratory distress Cardiovascular: regular rate/rhythm Abdomen: soft, non-tender Extremities: slight edema RUE, RLE Neurologic/Psychiatric: alert (and conversant) Current Medications: Current Medications Sig/Juma Start time Last Medication Dose Route Stop Time Status Admin Acetaminophen 650 MG Q4 11/05 1400 AC 11/07 OK 1450 Bisacodyl 10 MG DAILY NEEDED PRN 11/05 1400 AC OK Glycerin/Mineral Oil 1 DILLAN Q8P PRN 11/05 1400 AC TOP Glycopyrrolate 400 MCG Q4P PRN 11/05 1400 AC IV Lorazepam 1 MG Q4P PRN 11/05 1400 AC IV Morphine Sulfate 2 MG Q2P PRN 11/05 1400 AC 11/07 IV 0031 Scopolamine HBr 1 PAT Q72H 11/05 1500 AC 11/05 TOP 1500 Assessment/Plan Hospice Assessment/Recommendations: [id number]-male with AIDS and fever of unknown etiology, encephalopathy admitted for hospice care. Comfortable. Staying afebrile with round the clock tyleol. Has some lower abdominal pain. If getting worse will add narcotics as needed.
[2017-11-08 06:35] VITALS: BP 100/60
[2017-11-08 14:00] VITALS: BP 110/58
--- NOTE | 2017-11-08 14:54 | PN- Hospice ---
Subjective Subjective: Afebrile. Doing ok. spoke with pts son at bedside. Other than lower back pain no other complaints. Review of Systems Constitutional: Denies: fever. Cardiovascular: Denies: chest pain. Respiratory: Denies: short of breath. Musculoskeletal: Reports: back pain. Objective Last 24 Hrs of Vital Signs/I&O Vital Signs Date Time Temp Pulse Resp B/P B/P Pulse O2 O2 Flow FiO2 Mean Ox Delivery Rate 11/08 1439 97.6 11/08 1400 97.6 11/08 1400 97.6 64 18 110/58 96 Room Air 11/08 0955 98.0 11/08 0935 98.7 11/08 0635 97.6 64 18 100/60 97 Room Air 11/08 0621 97.6 11/08 0212 94.1 11/07 1753 95.3 11/07 1630 94.4 Intake & Output 11/08 1600 11/08 0800 11/08 0000 Intake Total 100 50 60 Output Total 200 150 150 Balance -100 -100 -90 Intake, Oral 100 50 60 Output, Urine 200 150 150 Physical Exam General Appearance: no apparent distress Head: atraumatic Respiratory: normal breath sounds Cardiovascular: regular rate/rhythm Abdomen: soft, non-tender Assessment/Plan Hospice Assessment/Recommendations: [id number] with AIDS and fever of unknown etiology, encephalopathy admitted for hospice care. Comfortable. Staying afebrile with round the clock tyleol. Has some lower back pain. If getting worse will increase pain meds.
[2017-11-09 06:00] VITALS: BP 130/60
[2017-11-09 13:37] VITALS: BP 135/62
--- NOTE | 2017-11-09 15:06 | PN- Hospice ---
Subjective Subjective: Daughter at bedside. Pt. has been afebrile, received morphine and ativan x 1 since midnight, had complained of abdominal pain and been restless/anxious. Pt is sleeping now, periods of apnea, appears comfortable. Only taking sips liquids, decreased urine output. Review of Systems Constitutional: Reports: see HPI. Objective Last 24 Hrs of Vital Signs/I&O Vital Signs Date Time Temp Pulse Resp B/P B/P Pulse O2 O2 Flow FiO2 Mean Ox Delivery Rate 11/09 1419 95.5 11/09 1337 97.5 62 16 135/62 94 Room Air 11/09 0940 93.4 11/09 0600 95.4 66 18 130/60 90 Room Air 11/09 0551 95.4 11/08 2222 93.7 11/08 2212 93.7 11/08 1810 95.7 11/08 1716 91.8 Intake & Output 11/09 1600 11/09 0800 11/09 0000 Intake Total 100 120 Output Total 200 200 Balance -100 -80 Intake, Oral 100 120 Output, Urine 200 200 Physical Exam General Appearance: no apparent distress, sedated, periods of apnea Head: normal appearance Respiratory: periods of apnea, no congestion Cardiovascular: regular rate/rhythm Extremities: feet cold with circulation changes noted, no edema Skin: pallor Other Physical Findings: prabhakar with small amount dark yellow urine Current Medications: Current Medications Sig/Juma Start time Last Medication Dose Route Stop Time Status Admin Acetaminophen 650 MG Q4P PRN 11/09 1445 UNVr VT Acetaminophen 650 MG Q4 11/05 1400 DC 11/09 [place] 0551 Bisacodyl 10 MG DAILY NEEDED PRN 11/05 1400 AC VT Glycerin/Mineral Oil 1 DILLAN Q8P PRN 11/05 1400 AC TOP Glycopyrrolate 400 MCG Q4P PRN 11/05 1400 AC IV Lorazepam 1 MG Q4P PRN 11/05 1400 AC 11/09 IV 0228 Morphine Sulfate 2 MG Q2P PRN 11/09 0145 AC 11/09 IV 0940 Morphine Sulfate 2 MG Q2P PRN 11/05 1400 DC 11/08 IV 1048 Scopolamine HBr 1 PAT Q72H 11/05 1500 AC 11/08 TOP 1400 Assessment/Plan Hospice Assessment/Recommendations: [id number]-male with AIDS and fever of unknown etiology, encephalopathy admitted for hospice care. Comfortable, afebrile. Continue as needed morphine and ativan. Change tylenol from scheduled to as needed.
[2017-11-10 07:17] VITALS: BP 112/58
[2017-11-10 14:20] VITALS: BP 102/58
--- NOTE | 2017-11-10 15:24 | PN- Hospice ---
Subjective Subjective: Daughter at bedside. Pt is awake, speaking at times in Armenian to daughter and she reports it often does not make sense. Nursing reporting that earlier pt complained of pain but did not want morphine as he did not want to sleep. He also did not want oral or rectal tylenol. Daughter states pt did complain of discomfort and has been a little restless in bed. He has taken sips of liquid. Review of Systems Constitutional: Reports: see HPI. Objective Last 24 Hrs of Vital Signs/I&O Vital Signs Date Time Temp Pulse Resp B/P B/P Pulse O2 O2 Flow FiO2 Mean Ox Delivery Rate 11/10 1420 96.3 89 20 102/58 93 11/10 0717 97.6 87 16 112/58 95 Room Air Intake & Output 11/10 1600 11/10 0800 11/10 0000 Intake Total 0 0 Output Total 250 275 200 Balance -250 -275 -200 Intake, IV 0 Intake, Oral 0 0 Number 0 Bowel Movements Output, Urine 250 275 200 Physical Exam General Appearance: no apparent distress, awake Head: atraumatic Respiratory: no respiratory distress, lungs clear Cardiovascular: regular rate/rhythm Extremities: bilat. feet warm, slight mottling Skin: warm/dry Other Physical Findings: prabhakar catheter with dk yellow urine Current Medications: Current Medications Sig/Juma Start time Last Medication Dose Route Stop Time Status Admin Acetaminophen 1,000 MG Q6H 11/10 1200 AC 11/10 N/A 1 UNIT IV 11/11 0614 1157 Acetaminophen 650 MG Q4P PRN 11/10 1115 DC PO Acetaminophen 650 MG Q4P PRN 11/09 1445 AC RI Bisacodyl 10 MG DAILY NEEDED PRN 11/05 1400 AC RI Glycerin/Mineral Oil 1 DILLAN Q8P PRN 11/05 1400 AC TOP Glycopyrrolate 400 MCG Q4P PRN 11/05 1400 AC IV Lorazepam 1 MG Q4P PRN 11/05 1400 AC 11/10 IV 1410 Morphine Sulfate 2 MG Q2P PRN 11/09 0145 AC 11/09 IV 1812 Scopolamine HBr 1 PAT Q72H 11/05 1500 AC 11/08 TOP 1400 Assessment/Plan Hospice Assessment/Recommendations: [id number]-male with AIDS and fever of unknown etiology, encephalopathy admitted for hospice care. Uncomfortable but does not like side effect of sedation from medications. Discussed with nursing and daughter will try to find balance between comfort and sedation. Ordered tylenol 1000mg IV every 6 hours scheduled. Also discussed restlessness and if continues or becomes worse, ativan should be utilized. Daughter in agreement.
[2017-11-11 06:00] VITALS: BP 104/58
--- NOTE | 2017-11-11 13:59 | PN- Hospice ---
Subjective Subjective: Daughter at bedside. Pt. has been awake, drinking water, eating very small amounts fruit (2-3 sections grapefruit). Has not required morphine until 12:30 today, for pain. Received ativan yesterday afternoon with increased agitation afterward. Received haldol x 2 after that. Review of Systems Constitutional: Reports: see HPI. Objective Last 24 Hrs of Vital Signs/I&O Vital Signs Date Time Temp Pulse Resp B/P B/P Pulse O2 O2 Flow FiO2 Mean Ox Delivery Rate 11/11 0600 96.7 67 18 104/58 93 Room Air 11/10 1420 96.3 89 20 102/58 93 Intake & Output 11/11 1600 11/11 0800 11/11 0000 Intake Total 200 240 0 Output Total 350 350 250 Balance -150 -110 -250 Intake, IV 240 Intake, Oral 200 0 0 Number 0 Bowel Movements Output, Urine 350 350 250 Physical Exam General Appearance: well developed/nourished, no apparent distress, lethargic Head: atraumatic, normal appearance Ears, Nose, Throat: dry mucus membranes Respiratory: no respiratory distress, decreased breath sounds Cardiovascular: regular rate/rhythm Abdomen: soft, non-tender Extremities: no edema, cold feet bilat, minimal circulation changes left foot, base of toes Neurologic/Psychiatric: drowsy, talking some but not able to understand as dentures falling out Other Physical Findings: prabhakar catheter with dk. yellow urine Assessment/Plan Hospice Assessment/Recommendations: [id number]-vbt-male with AIDS and fever of unknown etiology, encephalopathy admitted for hospice care. Comfortable and stable. Continue as needed medications at this point. Daughter working with [facility] hospice and case management for alternate care options for pt.
[2017-11-12 06:30] VITALS: BP 100/58
--- NOTE | 2017-11-12 14:50 | PN- Hospice ---
Subjective Subjective: Daughter at bedside. Pt appears comfortable. Daughter states pt was sleeping all day until now. Has not drank liquids til now. Taking small sips water and then was nauseous. Temp max 102.5 and has come down with tylenol suppository. Received morphine last at 9pm last night. Objective Last 24 Hrs of Vital Signs/I&O Vital Signs Date Time Temp Pulse Resp B/P B/P Pulse O2 O2 Flow FiO2 Mean Ox Delivery Rate 11/12 1205 101.3 11/12 1106 102.5 11/12 0630 96.1 108 16 100/58 93 Room Air Intake & Output 11/12 1600 11/12 0800 11/12 0000 Intake Total 50 0 Output Total 20 0 Balance 30 0 Intake, Oral 50 0 Output, Urine 20 0 Physical Exam General Appearance: no apparent distress, awake Head: normal appearance Ears, Nose, Throat: dry mucus membranes Respiratory: mild tracheal congestion Cardiovascular: regular rate/rhythm Extremities: no edema Neurologic/Psychiatric: awake, confused speech Other Physical Findings: prabhakar with dk yellow urine Current Medications: Current Medications Sig/Juma Start time Last Medication Dose Route Stop Time Status Admin Acetaminophen 650 MG Q4P PRN 11/09 1445 AC 11/12 NM 1106 Bisacodyl 10 MG DAILY NEEDED PRN 11/05 1400 AC NM Glycerin 2 SPRAY Q4P PRN 11/12 1500 UNVr PO Glycerin/Mineral Oil 1 DILLAN Q8P PRN 11/05 1400 AC TOP Glycopyrrolate 400 MCG Q4P PRN 11/05 1400 AC IV Haloperidol 0.5 MG Q6P PRN 11/10 1530 r 11/10 SC 2036 Lorazepam 1 MG Q4P PRN 11/05 1400 DC 11/10 IV 1410 Morphine Sulfate 2 MG Q2P PRN 11/09 0145 AC 11/11 IV 2129 Scopolamine HBr 1 PAT Q72H 11/05 1500 AC 11/11 TOP 1230 Assessment/Plan Hospice Assessment/Recommendations: [id number]-male with AIDS and fever of unknown etiology, encephalopathy admitted for hospice care. Appears comfortable, still with intermittent fever, poor oral intake. Tylenol for fever, haldol for agitation/nausea, morphine for pain/dyspnea. Ativan caused delirium/agitation.
[2017-11-13 05:30] VITALS: BP 143/72
[2017-11-13] MEDS ORDERED: CUVPOSA1 MG/5 ML PO (13:59)
[2017-11-13] MEDS ORDERED: TRANSDERM-SCOP1 EAC1 TOP (13:59)
[2017-11-13] MEDS ORDERED: BIOTENE473 ML PO (13:59)
[2017-11-13] MEDS ORDERED: ACETAMINOPHEN650 M5 PR (13:59)
[2017-11-13] MEDS ORDERED: HALOPERIDOL1 M1 PO (14:48)
[2017-11-13] MEDS ORDERED: LEVSIN0.125 M1 SL (14:48)
--- NOTE | 2017-11-13 16:06 | PN- Hospice ---
Subjective Subjective: Daughter at bedside. She reports pt has lucid intervals. Drinking some liquids , required morphine x 1 for pain and tylenol x 1 for fever to 102.9. Plans to take pt home tomorrow with [facility] hospice as she was told he was not appropriate for continued inpatient care. Review of Systems Constitutional: Reports: see HPI. Objective Last 24 Hrs of Vital Signs/I&O Vital Signs Date Time Temp Pulse Resp B/P B/P Pulse O2 O2 Flow FiO2 Mean Ox Delivery Rate 11/13 0801 99.7 11/13 0620 99.6 11/13 0603 102.9 11/13 0530 102.9 113 18 143/72 95 Room Air 11/12 1700 97.0 Intake & Output 11/13 1600 11/13 0800 11/13 0000 Intake Total 240 50 Output Total 200 300 125 Balance 40 -250 -125 Intake, Oral 240 50 Number 0 Bowel Movements Output, Urine 200 300 125 Physical Exam General Appearance: sleeping but wakens spontaneously, no distress Head: atraumatic Ears, Nose, Throat: dry mucus membranes Respiratory: no respiratory distress, decreased breath sounds, no congestion Cardiovascular: regular rate/rhythm Abdomen: soft, non-tender Extremities: no mottling, trace bipedal edema Other Physical Findings: prabhakar catheter with dk yellow urine Current Medications: Current Medications Sig/Juma Start time Last Medication Dose Route Stop Time Status Admin Acetaminophen 650 MG Q4P PRN 11/09 1445 AC 11/13 [place] 0603 Bisacodyl 10 MG DAILY NEEDED PRN 11/05 1400 AC [place] Glycerin 2 SPRAY Q4P PRN 11/12 1500 AC PO Glycerin/Mineral Oil 1 DILLAN Q8P PRN 11/05 1400 AC TOP Glycopyrrolate 400 MCG Q4P PRN 11/05 1400 AC IV Haloperidol 0.5 MG Q6P PRN 11/10 1530 AC 11/10 SC 2036 Morphine Sulfate 2 MG Q2P PRN 11/09 0145 AC 11/13 IV 1028 Scopolamine HBr 1 PAT Q72H 11/05 1500 AC 11/11 TOP 1230 Assessment/Plan Hospice Assessment/Recommendations: [id number]-ecd-male with AIDS and fever of unknown etiology, encephalopathy admitted for hospice care. To go home 11/14/17 with home hospice care provided by [facility]. Will need prescription for oral morphine solution (20mg/mL) 5mg every 4 hrs as needed for pain/dyspnea and rectal acetaminophen for fever
[2017-11-14 05:30] VITALS: BP 120/60
[2017-11-14 07:38] VITALS: BP 90/46
--- NOTE | 2017-11-14 09:34 | PN- Att Addend ---
Attending Addendum Attending Brief Note Patient seen and examined. Lying in bed. Appears obtunded. Labored breathing. Able to track with eyes on occasion. According to nursing staff who has been care for the patient is current status very different from how he was over the past few days. I did speak with the patient's daughter as well who saw the patient at the bedside today and also reports that his current clinical status is different from previous. Initial plan was to discharge patient home today on home hospice care. Vital Signs Date Time Temp Pulse Resp B/P B/P Pulse O2 O2 Flow FiO2 Mean Ox Delivery Rate 11/14 0738 102.9 126 28 90/46 91 Room Air 11/14 0737 102.9 11/14 0630 104.9 11/14 0630 104.9 11/14 0530 103.4 134 32 120/60 86 Room Air General appearance: Obtunded. Labored breathing. Heart: S1-S2 regular Lungs: Clear bilaterally Abdomen: Soft and nontender with normal bowel sounds. Extremities: No pedal edema. Problems: 1. Encephalopathy 2. AIDS 3. Fever of unknown origin. Plan: -Initial plan was to discharge patient home today however due to change in his status, we will have him re-evaluated by the Hospice service today and decide on disposition then. -Continue comfort measures.
[2017-11-15 07:08] VITALS: BP 90/44
--- NOTE | 2017-11-15 09:53 | PN- Att Addend ---
Attending Addendum Attending Brief Note Patient seen and examined. Currently lying in bed with eyes wide open, not responsive to tactile or verbal stimuli. Family is present at the bedside. Yesterday patient became agitated on occasion requiring 2 doses of Haldol yesterday. He has been requiring IV morphine through the course of the day and this morning. He continues to be febrile. Vital Signs Date Time Temp Pulse Resp B/P B/P Pulse O2 O2 Flow FiO2 Mean Ox Delivery Rate 11/15 0708 102.9 124 16 90/44 89 Room Air 11/15 0704 102.9 11/14 1842 97.3 11/14 1557 102.8 General appearance: Obtunded. Heart: S1-S2 regular Lungs: Clear bilaterally Abdomen: Soft, normal bowel sounds Extremities: Trace edema. Problems: 1. Encephalopathy 2. AIDS 3. Fever of unknown origin. Plan: -Daughter has stated that she is reluctant to take the patient home given his current clinical status. -Daughter and the rest of the family have verbalized understanding that patient is actively dying. Be in agreement with the plan to focus on keeping the patient comfortable. -Continue current hospice
[2017-11-16 06:27] VITALS: BP 82/50
--- NOTE | 2017-11-16 14:43 | PN- Hospice ---
Subjective Subjective: Daughter and friend at bedside. Pt. appears comfortable, sedated. Spiking fever daily, Tmax today 103.4. Received haldol x 2 for restlessness, no morphine. No oral intake, urine is dark and small amount. Review of Systems Constitutional: Reports: see HPI. Objective Last 24 Hrs of Vital Signs/I&O Vital Signs Date Time Temp Pulse Resp B/P B/P Pulse O2 O2 Flow FiO2 Mean Ox Delivery Rate 11/16 1232 99.0 11/16 1014 103.4 11/16 0627 101.7 123 20 82/50 86 Room Air 11/16 0540 102.5 11/16 0441 103.5 11/15 1957 102.5 Intake & Output 11/16 1600 11/16 0800 11/16 0000 Intake Total 0 0 Output Total 50 Balance 0 -50 Intake, Oral 0 0 Output, Urine 50 Physical Exam General Appearance: no apparent distress, sedated Head: atraumatic Ears, Nose, Throat: dry mucus membranes Respiratory: no respiratory distress, no congestion Cardiovascular: regular rate/rhythm, no murmur Abdomen: soft, non-tender Extremities: warm, no mottling Current Medications: Current Medications Sig/Juma Start time Last Medication Dose Route Stop Time Status Admin Acetaminophen 650 MG .STK-MED ONE 11/16 0440 DC [place] 11/16 0441 Acetaminophen 650 MG .STK-MED ONE 11/15 1827 DC [place] 11/15 1828 Acetaminophen 650 MG Q4P PRN 11/09 1445 AC 11/16 [place] 1014 Bisacodyl 10 MG DAILY NEEDED PRN 11/05 1400 AC [place] Glycerin 2 SPRAY Q4P PRN 11/12 1500 AC PO Glycerin/Mineral Oil 1 DILLAN Q8P PRN 11/05 1400 AC TOP Glycopyrrolate 400 MCG Q4P PRN 11/05 1400 AC IV Haloperidol 0.5 MG Q6P PRN 11/10 1530 AC 11/16 SC 1242 Morphine Sulfate 2 MG Q2P PRN 11/16 1330 AC IV Morphine Sulfate 2 MG Q2P PRN 11/09 0145 DC 11/15 IV 1830 Scopolamine HBr 1 PAT Q72H 11/05 1500 AC 11/14 TOP 1557 Assessment/Plan Hospice Assessment/Recommendations: 82-year-old male with AIDS, encephalopathy, FUO on hospice care. Pt appears comfortabe, with daily recurrent fever. Will schedule APAP suppository every 4 hrs and add ASA suppository prn fever>101. Discussed with daughter ad nursing.
[2017-11-16 22:57] VITALS: BP 79/54
[2017-11-17 05:15] VITALS: BP 70/42
--- NOTE | 2017-11-17 13:24 | Discharge Summary ---
Visit Information Visit Dates Admission Date: 11/05/17 Discharge Date: 11/17/17 Hospital Course Course Attending Physician: [place] BRVAO,Soledad Haley Primary Care Physician: Jeff Mishra MD Hospital Course: 82-year-old male with AIDS, encephalopathy, fever of unknown origin on hospice care. He was kept comfortable with morphine and haldol for pain and anxiety/ agitation, tylenol for fevers, until he peacefully. Complications: Pt. developed agitation from ativan, and therefore it was discontinued and haldol was utilized. Allergies: Coded Allergies: lorazepam (Intermediate, delirium 11/12/17) Disposition Summary Disposition Principal Diagnosis: encephalopathy fever of unknown origin aquired immunodeficiency syndrome Additional Diagnosis: Diabetes mellitus type 2 hypertension Discharge Disposition: Discharge Instructions General Discharge Information Code Status: Hospice Patient's Diet: N/A Patient's Activity: N/A Follow-Up Instructions/Appts: N/A Medications at Discharge Discharge Medications: Stop taking the following medications: Tamsulosin HCl (Tamsulosin HCl) 0.4 MG CAP.ER.24H ORAL DAILY Qty = 90 Zolpidem Tartrate (Zolpidem Tartrate) 10 MG TABLET ORAL Every night as needed Qty = 30 Aspirin (Ecotrin*) 81 MG TABLET. ORAL DAILY Azithromycin (Azithromycin) 600 MG TABLET ORAL EVERY THURSDAY Qty = 24 Sulfamethoxazole/Trimethoprim (Sulfamethoxazole-Tmp Ds Tablet) 800 MG-160 MG TABLET ORAL THURSDAY, THURSDAY AND THURSDAY Qty = 30 Pantoprazole Sodium (Pantoprazole Sodium) 40 MG TABLET. ORAL DAILY Qty = 90 Pravastatin Sodium (Pravastatin Sodium) 10 MG TABLET ORAL DAILY Qty = 90 Diclofenac Sodium (Voltaren) 1 % GEL..GRAM. On the skin TWICE DAILY as needed for PAIN Qty = 300 Pentoxifylline (Pentoxifylline) 400 MG TABLET.ER ORAL DAILY Ammonium Lactate (Ammonium Lactate) 12 % LOTION On the skin TWICE DAILY Desonide (Desowen) 0.05 % CREAM..G. On the skin TWICE DAILY Metoprolol Tartrate (Metoprolol Tartrate) 50 MG TABLET ORAL TWICE DAILY Qty = 60 Cyanocobalamin (Vitamin B-12) 1,000 MCG TABLET ORAL DAILY Qty = 30 Insulin Aspart (Novolog) 100 UNIT/ML VIAL Inject into fatty tissue 3 TIMES DAILY BEFORE MEALS Qty = 1 Apixaban (Eliquis) 2.5 MG TABLET ORAL TWICE DAILY Qty = 60 Continue taking these medications: Nut.tx.gluc.intoler,Lac-Fr,Soy (Glucerna) (Unknown Strength) LIQUID 1 Bottle ORAL TWICE DAILY Comments: NOT GIVEN IN HOSPTIAL Start taking the following new medications: Acetaminophen (Acetaminophen) 650 MG SUPP.RECT 650 Milligram RECTALLY EVERY 4 HOURS NEEDED as needed for FEVER > 101 Qty = 90 No Refills Scopolamine (Transderm-Scop) 1 MG/3 DAY PATCH.TD.3 1 Patch On the skin Q72H Qty = 30 No Refills Saliva Substitute Combo No.9 (Biotene) 473 ML MOUTHWASH 2 [place] ORAL EVERY 4 HOURS NEEDED as needed for dry mouth Qty = 120 No Refills Hyoscyamine (Levsin) 0.125 MG TABLET 1 Tablet SUBLINGUAL EVERY 4-6 HOURS as needed for SECRETIONS Qty = 60 No Refills Haloperidol (Haloperidol) 1 MG TABLET 1 Tablet ORAL Every 4 hours as needed for ANXIETY/AGITATION/INSOMNIA Qty = 90 No Refills Copies To: Rupert BRAVO,eJff [place]
== END 2017-11-17 06:10 | disposition expired | DRG 976 ==
LOC: 2NA 13:21
DX: G93.40 Encephalopathy, unspecified (principal); B20 Human immunodeficiency virus [HIV] disease; E11.9 Type 2 diabetes mellitus without complications; F03.90 Unspecified dementia, unspecified severity, without behavioral disturbance, psychotic disturbance, mood disturbance, and anxiety; Z51.5 Encounter for palliative care; I25.10 Atherosclerotic heart disease of native coronary artery without angina pectoris; I10 Essential (primary) hypertension; K21.9 Gastro-esophageal reflux disease without esophagitis; N40.0 Benign prostatic hyperplasia without lower urinary tract symptoms; F32.9 Major depressive disorder, single episode, unspecified; R50.9 Fever, unspecified; R45.1 Restlessness and agitation; F41.9 Anxiety disorder, unspecified
CPT/HCPCS: 2NAP; J0131; J1630